=== PATIENT | male | born 1945 | race Caucasian/White ===

== ENCOUNTER 2023-03-12 11:17 | Outpatient (RCR) | payer OTHER, SELFPAY | END 2023-03-12 23:59 | disposition home or self-care (01) | LOC: CRHB 11:17 | PROVIDERS: ATTENDING PHYSICIAN Internal Medicine Cardiovascular Disease | DX: I50.22 Chronic systolic (congestive) heart failure (principal); I25.10 Atherosclerotic heart disease of native coronary artery without angina pectoris | CPT/HCPCS: G0422; G0423 ==

== ENCOUNTER 2023-03-14 09:48 | Outpatient (RCR) | payer OTHER, SELFPAY | END 2023-03-14 23:59 | disposition home or self-care (01) | LOC: CRHB 09:48 | PROVIDERS: ATTENDING PHYSICIAN Internal Medicine Cardiovascular Disease | DX: I50.22 Chronic systolic (congestive) heart failure (principal); Z95.1 Presence of aortocoronary bypass graft; I25.5 Ischemic cardiomyopathy | CPT/HCPCS: G0422 ==

== ENCOUNTER → 2023-03-14 14:10 | Outpatient (REF) | payer OTHER, SELFPAY ==
[2023-03-14 14:55] LABS: Blood Urea Nitrogen 50 mg/dl (9-20); Calcium 9.9 mg/dl (8.4-10.2); Carbon Dioxide 28 mmol/L (22-30); Chloride 105 mmol/L (98-107); Glucose 77 mg/dl (70-99); Potassium 3.5 mmol/L (3.5-5.1); Sodium 141 mmol/L (135-145); eGFR 23.68
== END ==
LOC: REG 14:10
PROVIDERS: ATTENDING PHYSICIAN Internal Medicine Cardiovascular Disease; FAMILY PHYSICIAN Family Medicine
DX: I25.5 Ischemic cardiomyopathy (principal)
CPT/HCPCS: 36415; 80048

== ENCOUNTER 2023-03-14 19:51 | Inpatient (IN) | payer OTHER, SELFPAY ==
[2023-03-14 16:36] VITALS: BP 101/50
--- NOTE | 2023-03-14 16:49 | CON.CAR ---
Addendum entered and electronically signed by Yoan Huffman MD 03/14/23 18:01:
Patient seen and examined in collaboration with [employer]; agree with below.
-77-year-old male with extensive cardiac/medical history as outlined below; was evaluated in the Cardiology office yesterday and was found to have progressive acute on chronic HFrEF (EF 25%) exacerbation and worsening renal function.
-Patient is exhibiting cardiorenal syndrome secondary to end-stage heart disease.
-Will start the patient on milrinone 0.250 mcg/kg/min and adjust as needed.
-Recommend Lasix 40 mg IV daily for now.
-Recommend Nephrology consultation.
-laboratory monitor.
-Discussed with patient and who was at bedside.
-Cardiology will continue to follow in consultation; being admitted to Hospitalist service.
Original Note:
Consultation
Consultation Request
Date/Time Consultation Requested: 03/14/23 17:00
Date/Time Consultation Performed: 03/14/23 17:00
Requesting Provider: Dr. Mendez
Performing Provider: KATHI Smith for Dr. Huffman
Reason for Consultation: Acute on chronic heart failure
Medical History
-
Chief Complaint: Dyspnea
History of Present Illness:
Tae Davison (Russ) is a 77-year-old male (known to Dr. Swain, his primary beef skinner), with permanent atrial fibrillation, bicuspid aortic valve with aortic stenosis and dilated aortic root (CABG and biological AVR and ascending aortic tube
graft 05/2009), CAD (inferior HI with PCI 2004), ischemic cardiomyopathy, HFrEF, chronic kidney disease, lung cancer status post right upper lobectomy, thyroid cancer status post thyroidectomy, and former smoker with COPD who presented to the
emergency department with dyspnea and associated weight gain. Escalating doses of furosemide has not been successful in the outpatient setting. He endorses a weight gain of greater than 20 pounds. He is experiencing abdominal bloating and
distention with orthopnea.
Past Medical History
Past Medical History: Arrhythmias (permanent atrial fibrillation), CAD (CABG), Cancer (Right upper lobectomy [2011]; Thyroidectomy [2011]), CHF (HFrEF/ICM), COPD, Hypercholesterolemia, Hypothyroidism and Valvular Disease (Biological AVR and
ascending aortic tube graft replacement [2018])
Past Surgical History: Appendectomy, Cardiac and Tonsilectomy
Social History
Tobacco: Former Smoker
Living: With Family
Employment: Retired
Family History
Family History: Reviewed & Not Pertinent
Allergies / Home Medications
Allergy/AdvReac Type Severity Reaction Status Date / Time
codeine [Codeine] Allergy nausea Verified 03/14/23 16:36
vomiting
Penicillins Allergy Hives, Verified 03/14/23 16:36
swelling,
tolerated
ceftriaxone
Feb 2020
Medication Instructions Recorded Confirmed Type
atorvastatin 40 mg tablet 40 mg PO HS High cholesterol 04/25/22 10/01/22 History
docusate sodium 100 mg capsule 100 mg PO BID@0800,1600 05/16/22 10/01/22 History
Constipation
levalbuterol tartrate 45 2 inh inhalation Q6H PRN shortness 08/23/22 10/01/22 Rx
mcg/actuation aerosol inhaler of breath or wheezing #15 grams
(Xopenex HFA)
apixaban 5 mg tablet (Eliquis) 5 mg PO BID@0800,1600 Blood clot 10/10/22 10/01/22 Rx
prevention/tx #0 tabs
aspirin 81 mg chewable tablet 81 mg PO DAILY #0 tabs 10/10/22 Rx
furosemide 40 mg tablet 40 mg PO DAILY Fluid 10/10/22 Rx
retention/Swelling #30 tabs
metoprolol succinate 25 mg 25 mg PO BID Heart Failure #30 tabs 10/10/22 Rx
tablet,extended release 24 hr
sennosides 8.6 mg-docusate sodium 1 tab PO BID PRN constipation #0 10/10/22 Rx
50 mg tablet (Senna Plus) tabs
Review of Systems
-
History Source: Patient
All other systems: Negative unless noted
Respiratory: Trouble Breathing
Cardiac: No Symptoms
Abdomen/GI: Other (bloating)
Neurological: No Symptoms
Physical Exam
Vital Signs
Temp Pulse Resp BP Pulse Ox
97.7 F 71 20 101/50 95
03/14/23 16:36 03/14/23 16:36 03/14/23 16:36 03/14/23 16:36 03/14/23 16:36
Physical Exam
General: Well Developed, Well Nourished, No Apparent Distress and Comfortable
HEENT: Normocephalic, Anicteric and Moist Mucous Membranes
Respiratory: Clear and Non Labored Respirations
Cardiac: S1/S2 and Irregular Rhythm; Negative Peripheral Edema
Breast: Deferred by me
GI: Soft, Normal Bowel Sounds, Tender and Distended
Rectal: Deferred by Provider
Genito-urinary: No Costovertebral Tender
Musculoskeletal: No Clubbing, No Cyanosis and No Edema
Skin: Warm and Dry
Neuro: AO x 3
Psych: Calm
Impression / Plan
-
HFrEF (LVEF 25-30%), acute on chronic
-Stage C, NYHA Class III
-GDMT is limited in the setting of CKD (ALYSSA/ARB/ARNi/MRA)
-Medtronic ICD in place
-In the setting of RACHELE, diuresis per nephrology
-Consider inotropic support
-Right heart cath: 10/07/22: Normal filling pressures (LVEDP = 10 mmHg, PCWP = 10 mmHg at 68.0 kg); Severely depressed cardiac function (cardiac index = 1.63 L/min/m�).
-Update echocardiogram
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
-Clearly volume overloaded
-Nephrology consulted
Abdominal bloating, likely in the setting of acute HF
-LFTs pending
CAD
-Inferior HI with PCI 2004 & CABG 2018 (LOGAN-LAD, VG-PDA)
-Cardiac catheterization - burns [place] vessel CAD with patent grafts - 10/07/22
-Stable without chest pain
Permanent atrial fibrillation
-Rate controlled
-Oral Anticoagulation: Eliquis 5mg BID
-[id number]: score 4 (Heart failure, age 75 or more, Vascular disease)
WCT (2022), continue beta jade
Moderate mitral regurgitation, by TTE 09/2022
Bicuspid aortic valve with aortic stenosis and dilated aortic root s/p biologic AVR (27mm Braden) and an aortic tube graft (05/2017)
COPD, no acute wheeze
Former smoker, continued cessation recommended
Data Reviewed
-
Medical Tests (Nuc Med, Echo etc): Report Reviewed by me (Echo & cardiac catheterization as above)
Labs: Labs Reviewed by me
Old Records: Reviewed
--- NOTE | 2023-03-14 17:21 | EDRN ---
Dr. Inman in room w/ pt at thistime.
[2023-03-14 17:27] VITALS: BMI 25.5
[2023-03-14 17:30] VITALS: BP 147/68
[2023-03-14 18:00] VITALS: BP 140/111
--- NOTE | 2023-03-14 18:05 | ED.GENMED ---
History of Present Illness
General
Chief Complaint: Swelling
Source: patient
Exam Limitations: none
Time Seen by Provider: 03/14/23 17:56
Travel History
Have you had any contact with someone who has COVID-19?: No
Do you have any symptoms of coronavirus? Fever > 100 degrees, chills, cough, shortness of breath, sore throat, loss of taste or smell, muscle aches, or headache?: No
History of Present Illness
History of Present Illness:
See MDM
Past History
Past History
ED Past Medical History: Arrthythmia (Atrial fib), CAD, Cancer (lung/Thyroid), CHF, COPD, CVA, HTN, Hypercholesterolemia, IL, Valvular disease and Other (sepsis, Headache over the left eye continually, Renal issues, Blind left eye, Ulcers)
ED Past Surgical History: Appendectomy, Cardiac (CABG, stents), Tonsilectomy, Urological (Bladder repair, ) and Other (Laparoscopic left inguinal hernia repair November 19, 2021, Left upper lobectomy, thyroidectomy)
Social History
Tobacco: Former smoker (Sneaking a few cigarettes according to .)
Alcohol: Daily (Wine 1)
Drug: None
Personal:
Living: with family
Employment: Retired
Family History
Family History: Other (Noncontributory)
Phy Exam
Physical Exam
Physical Exam:
See MDM
Scores
Heart Failure Risk
Heart Failure Risk Score: Yes
History of Stroke or TIA: No
History of intubation for respiratory distress: No
Heart rate on ED arrival >/= 110: No
SaO2 <90% on arrival on room air: No
HR >/=110 during 3min walk test (or too ill to perform test): Yes
ECG has acute ischemic changes: No
Urea >/=12mmol/L (BUN 33.6mg/dL): No
Serum CO2>/=35mmol/L: No
Troponin I or T elevated to [place] Level (0.4mg/dL): No
NT-proBNP >/=5,000ng/L (5,000pg/ml): No
HF Risk Score: 2
Admission Status: MEDIUM RISK 9.2% Consider observation or discharge to home with homecare & f/u visit to PCP/Home Specialist, or SNF for treatment
Course
Orders/Labs/Results
Orders:
Orders
03/14/23 17:28
Furosemide [Lasix] 40 mg IV NOW STA
03/14/23 17:30
Milrinone Lactate 20 mg/100 ml [Primacor 20 mg] 20 mg in 100 ml IV PER PROTOCOL
Continuous dose without titration in mcg/kg/min:: 0.25
Additional Titration Instructions:: Do not titrate. Rate change by provider order only.
03/14/23 17:37
LFT [[id number]] Routine
03/14/23 17:44
Electrocardiogram (*1) Urgent
Reason for Study: Chest Pain
EKG- Treatment ONCE
03/14/23 18:02
Consult Cardiology [CARDIOLOGY CONSULT] Urgent
Consulting Provider: Yoan Huffman
Was physician already notified: Yes
03/14/23 18:03
Consult Nephrology [NEPHROLOGY CONSULT] Routine
Consulting Provider: Aly Rich
Was physician already notified: Yes
03/17/23 06:00
Echo 2D MMode Color/Doppler IN AM
Reason for Study: HFrEF
Vital Signs
Initial and Last Documented VS:
Initial Vital Signs
Temp Pulse Resp BP Pulse Ox
97.7 F 71 20 101/50 95
03/14/23 16:36 03/14/23 16:36 03/14/23 16:36 03/14/23 16:36 03/14/23 16:36
Last Documented Vital Signs
Temp Pulse Resp BP Pulse Ox
97.7 F 81 23 140/111 97
03/14/23 16:36 03/14/23 18:00 03/14/23 18:00 03/14/23 18:00 03/14/23 18:00
MDM/Problems Addressed
Differential Diagnosis Includes:
HPI and MDM Narrative:
77-year-old male presenting for admission. He followed up with his manager food for weight gain. Outpatient blood work showed elevated creatinine. He was sent in to start milrinone and to see nephrology
On exam, patient sitting in bed comfortably. Lungs appear clear. No hypoxia
Patient is urinating indicating no post renal obstruction
Physical exam
General: Weak and frail
HEENT: protecting airway
Neck: appears supple
CV: No evidence of cyanosis
Resp: No accessory muscle use. Decreased breath sounds
Abd: Non-distended
Extremities: No deformities
Neuro: alert
Psych: Normal affect
Skin: Intact
Problems Addressed including Acute and Chronic Conditions affecting care:
1. CHF exacerbation
Acuity: acute
Prognosis: unstable
Details: Patient started on milrinone
2. Acute kidney injury
Acuity: acute
Prognosis: unstable
Details: Likely in the setting of lasix. Nephrology consulted
Updates
Differential Diagnosis (but not limited to): Acute kidney injury, CHF exacerbation, pulmonary edema
Testing considered: Chest x-ray
Drug therapy (if applicable): OTC meds, please see d/c instruction regarding Rx drugs
Amount and/or Complexity of Data Reviewed
Clinical info obtained from: Patient
External data reviewed: N/A
Labs I independently reviewed (but not limited to): elevated Cr
Radiology: N/A
Pulse Ox: not hypoxic
EKG independently reviewed: Sinus rhythm, PVCs, left axis, no STEMI
Dough Braker: N/A
Critical Care: N/A
Risk of Complication:
Social Determinants of health: Good social support
Discussed with other providers: Cardiology, nephrology, hospitalist
Escalation of Care includes Admit/Obs: Given the kidney injury and weight gain, will admit on milrinone
Occasional wrong word or 'sound a like' substitutions may have occurred due to the inherent limitations of voice recognition software. Read the chart carefully and recognize, using context, where substitutions have occurred.
*Critical Care Note
Total Time (30-74mins, 75-104mins- exclusive of procedures): Not Applicable
ED Attending Note
-
Portions of this chart may have been created with voice recognition software.� Occasional wrong word or��sound alike� substitutions may have occurred due to the inherent limitations of voice recognition software.
Discharge Plan
Departure
Patient Disposition: Admit
Date of Disposition: 03/14/23
Time of Disposition: 18:06
Admit to: IVU
Presentation/result/management discussed w/ accepting MD/DO: Hospitalist
Discharge Problem:
Acute exacerbation of CHF (congestive heart failure), RACHELE (acute kidney injury)
Prescriptions:
No Action
atorvastatin 40 MG tablet
40 mg PO HS
docusate sodium 100 mg capsule
100 mg PO BID@0800,1600
levalbuterol tartrate [Xopenex HFA] 45 mcg/actuation HFA aerosol inhaler
2 inh inhalation Q6H PRN (Reason: shortness of breath or wheezing) Qty: 15 3RF
furosemide 40 mg Tablet
40 mg PO DAILY Qty: 30 0RF
sennosides-docusate sodium [Senna Plus] 8.6-50 mg Tablet
1 tab PO BID PRN (Reason: constipation) Qty: 0 0RF
aspirin 81 mg Tablet,Chewable
81 mg PO DAILY Qty: 0 0RF
metoprolol succinate 25 mg Tablet Extended Release 24 Hr
25 mg PO BID Qty: 30 0RF
Eliquis 5 mg tablet
5 mg PO BID@0800,1600 Qty: 0 0RF
Rx Instructions:
start tonight 10/10/22
Interventions
Interventions:
*Risk Screen - Suicide Last Done: 03/14/23 17:28
*General Assessment Last Done: 03/14/23 17:28
*Neglect/Abuse Screening Last Done: 03/14/23 17:28
ED- Fall Risk Assessment Last Done: 03/14/23 17:37
*ED COVID-19 Vaccine History Last Done: 03/14/23 17:28
ED- Cardiac Assessment Last Done: 03/14/23 17:37
ED- Pulmonary Assessment Last Done: 03/14/23 17:37
ED-Skin Assessment Last Done: 03/14/23 17:37
--- NOTE | 2023-03-14 19:04 | HPS.HSE ---
Family Physician
-
Family Physician: Patric Riley
Chief Complaint
-
abdominal distention
History of Present Illness
77-year-old male past medical history of HFrEF with ICD, permanent atrial fibrillation on Eliquis, CAD status post PCI in 2005, CABG in 2018, bicuspid aortic valve with aortic stenosis status post TAVR and dilated aortic root status post ascending
aortic tube graft in 2009, CKD 3B, thyroid cancer status post thyroidectomy former smoker, COPD on 2 L at night and in the morning, lung cancer status post right upper lobectomy presenting with shortness of breath when lying down flat and weight
gain. He has gained more than 20 pounds. He complains of abdominal bloating and distention. Increasing doses of Lasix to 80 mg/day have not helped in the past few weeks. He is peeing but not making as much urine as he expected. He does have
some wheezing at times. Denies any chest pain. Denies any dizziness or palpitations or syncope.
He saw his surgeon partner Dr. Hernández yesterday who stopped metoprolol and started Coreg and metolazone which patient has not picked up from the pharmacy yet.
He is a former smoker. Denies any alcohol use.
Medical History
Past Medical History
Past Medical History: Reports Other (HFrEF with ICD, permanent atrial fibrillation on Eliquis, CAD status post PCI in 2004, CABG in 2018, bicuspid aortic valve with aortic stenosis status post TAVR and dilated aortic root status post ascending
aortic tube graft in 2009, CKD 3B, thyroid cancer status post thyroidectomy former smoker, [place])
Past Surgical History: Reports Other (Appendectomy, Cardiac and Tonsilectomy)
Social History
Tobacco: Former Smoker
Alcohol: None
Drug: None
Family History
Family History: Not pertinent
Allergies / Home Medications
Allergies reflects when Allergies were last updated in Between.
Home Medications with original date entered in Between
Allergy/Medication List:
Allergies
Allergy/AdvReac Type Severity Reaction Status Date / Time
codeine [Codeine] Allergy nausea Verified 03/14/23 16:36
vomiting
Penicillins Allergy Hives, Verified 03/14/23 16:36
swelling,
tolerated
ceftriaxone
Feb 2020
Home Medications
atorvastatin 40 mg tablet 40 mg PO HS High cholesterol 04/25/22
apixaban 5 mg tablet (Eliquis) 5 mg PO BID@0800,1600 Blood clot prevention/tx #0 tabs 10/10/22
carvedilol 6.25 mg tablet (Coreg) 6.25 mg PO Q12H 03/14/23
furosemide 40 mg tablet 40 mg PO BID Fluid retention/Swelling 03/14/23
gabapentin 300 mg capsule 300 mg PO DAILY 03/14/23
gabapentin 300 mg capsule 600 mg PO HS 03/14/23
levalbuterol tartrate 45 mcg/actuation aerosol inhaler (Xopenex HFA) 2 inh inhalation R BID 03/14/23
magnesium oxide 400 mg PO QPM 03/14/23
metolazone 2.5 mg tablet 2.5 mg PO MOWEFR 03/14/23
naproxen sodium 220 mg tablet (Aleve) 440 mg PO DAILYPRN PRN mild pain 03/14/23
potassium chloride 20 mEq tablet,extended release 20 meq PO DAILY 03/14/23
pyridoxine (vitamin B6) 500 mg tablet 500 mg PO DAILY 03/14/23
Review of Systems
-
History Source: Patient
A 12 point ROS was completed and negative except as noted: Yes
Constitutional: Reports No Symptoms
EENT: Reports No Symptoms
Respiratory: Reports See HPI
Cardiac: Reports See HPI
Abdomen/GI: Reports See HPI
: Reports No Symptoms
Musculoskeletal: Reports No Symptoms
Skin: Reports No Symptoms
Neurological: Reports No Symptoms
Endocrine: Reports No Symptoms
Hematologic/Lymphatic: Reports No Symptoms
Psych: Reports No Symptoms
Physical Exam
Vital Signs
Vital Signs
Temp Pulse Resp BP Pulse Ox
97.7 F 81 23 140/111 97
03/14/23 16:36 03/14/23 18:00 03/14/23 18:00 03/14/23 18:00 03/14/23 18:00
Physical Exam
General: Well Developed, Well Nourished and No Apparent Distress
HEENT: NormoCephalic, Moist mucous membranes and Atraumatic
Respiratory: Clear
Cardiac: S1/S2 and Regular Rhythm; No Murmur or Rub
GI: Soft, Normal Bowel Sounds, Tender and Distended; No Organomegaly
Rectal: Deferred by Provider
Musculoskeletal: No Clubbing, No Cyanosis and No Edema
Skin: No Rash
Neuro: Nonfocal/grossly intact
Data Reviewed
-
Lab Data: Labs Reviewed by me
Old Records: Reviewed
Impression/Plan
-
IMPRESSION:
PLAN:
# Abdominal distention secondary to acute on chronic HFrEF exacerbation
# Cardiomyopathy with ICD
-Check I's and O's, daily weights
-40 IV Lasix daily
-Cardiology started milrinone drip
-Prior echo shows EF of 25 to 30%
-Check chest x-ray
-Check echo
-continue Coreg
# RACHELE on CKD 3B secondary to cardiorenal syndrome
-Monitor with diuresis/milrinone
-Hold metolazone, naproxen
-Nephrology consulted
Moderate mitral regurgitation
Moderate tricuspid regurgitation
Moderate pulmonary hypertension
Permanent atrial fibrillation
-Continue Eliquis
Coronary artery disease status post PCI in 2005/CABG in 2018
-Continue statin
Bicuspid aortic valve/aortic stenosis status post TAVR
History of dilated aortic root status post ascending aortic tube graft in 2009
Thyroid cancer status post thyroidectomy
COPD on 2 L in the night/morning as needed
-Continue inhalers
Former smoker
Lung cancer status post right upper lobe lobectomy
Restless leg syndrome
-Continue gabapentin
Full code
DVT prophylaxis�Eliquis
Cardiac diet
[2023-03-14 19:42] VITALS: BP 119/61
[2023-03-14 19:59] LABS: ALT (SGPT) 21 U/L (0-50); AST (SGOT) 26 U/L (17-59); Albumin 3.6 g/dl (3.5-5.0); Alkaline Phosphatase 113 U/L (38-126); Direct Bilirubin 0.9 mg/dl (0.0-0.4); Total Bilirubin 1.1 mg/dl (0.2-1.3); Total Protein 6.9 g/dl (6.3-8.2)
[2023-03-14 20:00] VITALS: BP 131/71
[2023-03-14] MEDS: LASIX 40 MG IV (20:10)
[2023-03-14] MEDS: PRIMACOR 20 MG 100 IV (20:20)
[2023-03-14] MEDS: COREG 6.25 MG PO (21:41)
[2023-03-14] MEDS: LIPITOR 40 MG PO (21:41)
[2023-03-14] MEDS: XOPENEX HFA 45 MCG INHALER 2 PUFF INH (21:44)
[2023-03-14 21:55] VITALS: BMI 24.3
[2023-03-14 22:12] VITALS: BMI 24.3
[2023-03-14] MEDS: NEURONTIN 600 MG PO (22:22)
[2023-03-14] MEDS: ELIQUIS 5 MG PO (22:23)
[2023-03-14 22:27] VITALS: BP 124/54
--- NOTE | 2023-03-15 00:16 | PTCARENOTE ---
Pt rec'd as new admit from Ed jsut after shift change. Pt awake,alert but does state he has noticed himself getting forgetful. Pt states he walked downstair from his bedroom to his in the living room looking for his bed. Pt states these
instances have been happing more often this year. Pt oriented at this time x 3. Lungs clear with sat 95% on R/A. Pt states he holds his fluid in his abd and has noted wt gain in that area. No pedal edema noted. adm hx taken. pt given box lunch and
HS meds given. Voiding in urinal clear yellow urine. Milrinone gtt infusing at 0.25 mcg/kg/min rate of 6.1 cc/hr. call erazo within reach
[2023-03-15 04:23] VITALS: BP 115/57
[2023-03-15 04:34] VITALS: BMI 24.4
[2023-03-15 04:55] LABS: % Basophils 0.9 % (0-2); % Eosinophils 3.9 % (0-6); % Immature Granulocytes 0.2 % (0-0.5); % Lymphocytes 18.6 % (20.5-51.1); % Monocytes 15.2 % (1.7-9.3); % Neutrophils 61.2 % (42.2-75.2); Absolute Basophils 0.1 10^3/uL (0-0.2); Absolute Eosinophils 0.2 10^3/uL (0-0.7); Absolute Lymphocytes 1.1 10^3/uL (1.2-3.4); Absolute Monocytes 0.9 10^3/uL (0.1-0.6); Absolute Neutrophils 3.5 10^3/uL (1.4-6.5); Hematocrit 27.1 % (39.0-52.0); Hemoglobin 8.6 g/dL (13.0-18.0); Mean Corp Hgb Conc. 31.7 g/dL (33.0-37.0); Mean Corpuscular Hgb 25.6 pg (27.0-31.0); Mean Corpuscular Volume 80.7 fL (80.0-94.0); Mean Platelet Volume 9.6 fL (7.4-10.4); Nucleated Red Blood Cells % 0 % (-); Platelet Count 185 10^3/uL (130-400); Red Blood Cell Count 3.36 10^6/uL (4.70-6.10); Red Cell Dist. Width 17.1 % (11.5-14.5); White Blood Cell Count 5.7 10^3/uL (4.8-10.8)
[2023-03-15 05:20] LABS: ALT (SGPT) 20 U/L (0-50); AST (SGOT) 22 U/L (17-59); Albumin 3.4 g/dl (3.5-5.0); Alkaline Phosphatase 117 U/L (38-126); Blood Urea Nitrogen 48 mg/dl (9-20); Calcium 9.6 mg/dl (8.4-10.2); Carbon Dioxide 25 mmol/L (22-30); Chloride 107 mmol/L (98-107); Estimated Creatinine Clearance 26 ml/min; Glucose 123 mg/dl (70-99); Potassium 3.6 mmol/L (3.5-5.1); Sodium 137 mmol/L (135-145); Total Bilirubin 0.8 mg/dl (0.2-1.3); Total Protein 6.3 g/dl (6.3-8.2); eGFR 23.68
--- NOTE | 2023-03-15 06:33 | PTCARENOTE ---
Pt with no complaints this morning other than abd bloating. Continues to urinate frequently approx 200 cc each void. WT unchanged from adm to floor. Afib with pvc's on telemetry.
[2023-03-15 07:48] VITALS: BP 107/60
[2023-03-15] MEDS: XOPENEX HFA 45 MCG INHALER 2 PUFF INH ×2 (08:10→18:24)
[2023-03-15] MEDS: PRIMACOR 20 MG 100 IV ×2 (08:58→23:54)
[2023-03-15] MEDS: LASIX 40 MG IV (08:58)
[2023-03-15] MEDS: COREG 6.25 MG PO ×2 (08:59→20:37)
[2023-03-15] MEDS: KCL 20 MEQ PO (08:59)
[2023-03-15] MEDS: NEURONTIN 300 MG PO (08:59)
[2023-03-15] MEDS: VITAMIN B-6 50 MG PO (08:59)
[2023-03-15] MEDS: ELIQUIS 5 MG PO ×2 (09:00→17:09)
--- NOTE | 2023-03-15 09:20 | W.PN.HOSP.TC ---
Today's Communication/Plan
-
CW Milrinone and Lasix -follow Cr and Wt
Anemia evaluation
Assessment / Plan
Assessment / Plan
# acute on chronic HFrEF exacerbation
# Cardiomyopathy with ICD
-Admitting weight was 187 which is much higher than his baseline of 160s. Improving weight with Lasix. Initiated on milrinone as well for inotropic effect. Cardiology following.
-Prior echo shows EF of 25 to 30%
-chest x-ray with no acute cardiopulmonary processes.
-Check echo
-continue Coreg
# RACHELE on CKD 3B concerning for cardiorenal syndrome
-Monitor with diuresis/milrinone
-Hold metolazone, naproxen
-Nephrology consulted
# Normocytic anemia - Newly low. Other cell lines are okay.
Heme test stools.
Check iron studies.
Check reticulocyte count.
Follow H&H closely
Moderate mitral regurgitation
Moderate tricuspid regurgitation
Moderate pulmonary hypertension
Permanent atrial fibrillation
-Continue Eliquis
Coronary artery disease status post PCI in 2004/CABG in 2018
-Continue statin
Bicuspid aortic valve/aortic stenosis status post TAVR
History of dilated aortic root status post ascending aortic tube graft in 2009
Thyroid cancer status post thyroidectomy
COPD on 2 L in the night/morning as needed
-Continue inhalers
Former smoker
Lung cancer status post right upper lobe lobectomy
Restless leg syndrome
-Continue gabapentin
Full code
DVT prophylaxis�Eliquis
Cardiac diet
Anticipated Discharge: > 48 hours
Subjective/Interval History
-
Date of Service: March 15, 2023
Denies shortness of breath at rest. No chest pain or palpitations.
Objective Data
-
Labs:
Laboratory Results
03/15/23
04:32
WBC 5.7
Hgb 8.6 L
Hct 27.1 L
Plt Count 185
Sodium 137
Potassium 3.6
Chloride 107
Carbon Dioxide 25
BUN 48 H
Creatinine 2.7 H
Glucose 123 H
Calcium 9.6
Total Bilirubin 0.8
AST 22
ALT 20
Alkaline Phosphatase 117
Vital Signs:
Vital Signs
Temp Pulse Resp BP Pulse Ox
98.2 F 73 18 107/60 92
03/15/23 07:48 03/15/23 08:59 03/15/23 08:13 03/15/23 08:59 03/15/23 08:13
I&O
03/14/23 03/15/23 03/16/23
06:59 06:59 06:59
Intake Total 460 / 460
Output Total 1300 / 1300
Balance -840 / -840
Review of Systems
-
Constitutional: Denies Fever
EENT: Denies Sore Throat
Respiratory: Denies Cough
Abdomen/GI: Denies Abdominal Pain, Nausea or Vomiting
Neuro: Denies Dizzy
Physical Exam
-
General: No Apparent Distress
HEENT: Moist Mucous Membranes
Respiratory: Crackles (Bibasilar)
Cardiac: S1/S2 and Irregular Rhythm; Negative Tachycardic
GI: Soft
Musculoskeletal: Negative No Edema (1+ bilateral)
Neuro: AO x 3
Psych: Calm; Negative Confused
Data Reviewed
-
Labs: Labs Reviewed by me
--- NOTE | 2023-03-15 10:04 | W.PN.CD ---
Today's Communication / Plan
-
-Will increase Lasix to 40 mg IV twice daily for more aggressive diuresis; has diuresed 1 L so far since yesterday.
-Volume overloaded (primarily abdominal distention).
-Nephrology consultation.
Impression / Plan
-
HFrEF (LVEF 25-30%), acute on chronic decompensation
-Stage C, NYHA Class III-IV, now requiring milrinone--continue today.
-Will increase Lasix to 40 mg IV twice daily for more aggressive diuresis; has diuresed 1 L so far since yesterday.
-GDMT is limited in the setting of CKD (ALYSSA/ARB/ARNi/MRA)
-Medtronic ICD in place
-Right heart cath: 10/07/22: Normal filling pressures (LVEDP = 10 mmHg, PCWP = 10 mmHg at 68.0 kg); Severely depressed cardiac function (cardiac index = 1.63 L/min/m�).
-Update echocardiogram
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
-Volume overloaded (primarily abdominal distention).
-Nephrology consultation.
CAD
-Inferior OK with PCI 2004 & CABG 2017 (LOGAN-LAD, VG-PDA)
-Cardiac catheterization - [place] vessel CAD with patent grafts - 10/07/22
-Appears to be stable without chest pain.
Permanent atrial fibrillation
-Rate controlled
-Oral Anticoagulation: Eliquis 5mg BID
-[id number]: score 4 (Heart failure, age 75 or more, Vascular disease)
Anemia
-Workup/management as per primary team.
WCT (2022), continue beta jade
Moderate mitral regurgitation, by TTE 09/2022
Bicuspid aortic valve with aortic stenosis and dilated aortic root s/p biologic AVR (27mm Braden) and an aortic tube graft (05/2017)
COPD, no acute wheeze
Former smoker, continued cessation recommended
Physical Exam
Vital Signs/Labs
Vital Signs
Temp Pulse Resp BP Pulse Ox
98.2 F 73 18 107/60 92
03/15/23 07:48 03/15/23 08:59 03/15/23 08:13 03/15/23 08:59 03/15/23 08:13
03/14/23 03/15/23 03/16/23
06:59 06:59 06:59
Actual Weight 81.4 kg
03/15/23 04:32
03/15/23 04:32
Physical Exam
Constitutional: No acute distress and Comfortable
EENT: Anicteric
Cardiovascular: Rhythm/rate is irregular, Pedal edema present (Trace), Systolic murmur present (Soft 2/6) and S1S2 is normal
Respiratory: Respiratory effort normal and Other (Decreased bibasilar breath sounds)
GI: Soft
Neuro/Psych: AO x 3
Other: Skin (Warm, dry, intact)
Data Reviewed
-
Date of Service: March 15, 2023
EKG: Tracing Personally Visualized and interpreted (Telemetry: A-fib)
Medical Tests (PFT, Pathology etc): Discussed with Nurse and Discussed with Patient
Labs: Labs Reviewed by me
[2023-03-15 11:31] VITALS: BP 112/48
[2023-03-15] MEDS: MAGNESIUM OXIDE 500 MG PO (11:55)
--- NOTE | 2023-03-15 12:09 | CON.MD ---
Consultation - Medical
-
Assessment
-RACHELE
-CKD3b (1.7)
-HFrEF 25%, decompensated
-CAD
-Afib
-Anemia
-COPD
-TAVR
Plan
-milrinone per cardiology
-increase lasix to 80mg IV BID for this weekend
-If Cr worsens or diuresis is lacking, go to TID with metolazone and consider RHC friday
-d/w pt and cardiorenal and potential of dialysis if we cannot break the cycle
-check iron stores
-No NSAIDs
-[id number]
[2023-03-15 15:45] VITALS: BP 112/55
[2023-03-15] MEDS: MAG-TAB SR 84 MG PO (17:09)
[2023-03-15] MEDS: LASIX 80 MG IV (17:09)
--- NOTE | 2023-03-15 18:03 | PTCARENOTE ---
pt continues to be afib on the monitor with pvcs, hr in the 80s, vss. pt offers no complaints at this time. pt has been resting throughout the day and visiting with family. pt educated on plan of care for the evening and pt verbalized understanding.
milrinone gtt running per documentation. call erazo within reach.
[2023-03-15 19:41] VITALS: BP 119/49
[2023-03-15] MEDS: LIPITOR 40 MG PO (20:37)
[2023-03-15] MEDS: NEURONTIN 600 MG PO (20:38)
--- NOTE | 2023-03-15 21:15 | PTCARENOTE ---
Assumed care. Patient sitting up in bed watching TV. Milrinone gtt infusing per MAR. Ussing urinal for yellow urine, emptied urinal 600cc. Abdomen soft and obese, no edema. A-FIB on telemetry, HR in the 80's, denies pain or shortness of breath, call
erazo in reach
[2023-03-15 22:18] VITALS: BP 101/62
[2023-03-16] VITALS (8 sets, daily range): BP systolic 99–122; BP diastolic 35–66; PULSE 86; O2SAT 92; BMI 24.4
[2023-03-16 03:05] LABS: Hematocrit 26.9 % (39.0-52.0); Hemoglobin 8.7 g/dL (13.0-18.0); Mean Corp Hgb Conc. 32.3 g/dL (33.0-37.0); Mean Corpuscular Volume 80.3 fL (80.0-94.0); Platelet Count 187 10^3/uL (130-400); Red Blood Cell Count 3.35 10^6/uL (4.70-6.10); Red Cell Dist. Width 16.9 % (11.5-14.5); Reticulocyte Count 1.3 % (0.4-2.8); White Blood Cell Count 7.8 10^3/uL (4.8-10.8)
[2023-03-16 03:22] LABS: Blood Urea Nitrogen 51 mg/dl (9-20); Carbon Dioxide 24 mmol/L (22-30); Chloride 101 mmol/L (98-107); Estimated Creatinine Clearance 28 ml/min; Glucose 123 mg/dl (70-99); Iron 47 ug/dl (49-181); Potassium 4.1 mmol/L (3.5-5.1); Sodium 136 mmol/L (135-145); eGFR 25.98
[2023-03-16 03:30] LABS: Percent Saturation 13 % (20-50); Total Iron Binding Capacity 349 ug/dl (261-462)
[2023-03-16 03:55] LABS: Ferritin 12.3 ng/ml (17.9-464.0)
[2023-03-16 04:09] LABS: Vitamin B12 346 pg/ml (239-931)
[2023-03-16] MEDS: XOPENEX HFA 45 MCG INHALER 2 PUFF INH ×2 (08:12→21:09)
[2023-03-16] MEDS: NEURONTIN 300 MG PO (08:43)
[2023-03-16] MEDS: VITAMIN B-6 50 MG PO (08:44)
[2023-03-16] MEDS: COREG 6.25 MG PO ×2 (08:44→19:49)
[2023-03-16] MEDS: LASIX 80 MG IV ×2 (08:44→17:04)
[2023-03-16] MEDS: ELIQUIS 5 MG PO ×2 (08:44→17:04)
[2023-03-16] MEDS: KCL 20 MEQ PO (08:44)
--- NOTE | 2023-03-16 09:26 | W.PN.HOSP.TC ---
Today's Communication/Plan
-
cont milrinone, diuresis
apprec cards/renal
Assessment / Plan
Assessment / Plan
pt is a 77 year old male
acute on chronic HFrEF exacerbation/Cardiomyopathy with ICD--apprec cards/renal--cont milrinone--cont diuresis--Admitting weight was 187 which is much higher than his baseline of 160s--Prior echo shows EF of 25 to 30% (09/2022)--await repeat--cont
coreg
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
Normocytic anemia--Newly low. Other cell lines are okay--appears to be iron deficient--HGB 8.7--heme check stool--retic count normal 1.3--may need heme eval
Moderate mitral regurgitation/Moderate tricuspid regurgitation/Moderate pulmonary hypertension
Permanent atrial fibrillation--Continue Eliquis
Coronary artery disease status post PCI in 2004/CABG in 2018--Continue statin
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
Thyroid cancer status post thyroidectomy
COPD on 2 L in the night/morning as needed--Continue inhalers
Former smoker with hx of Lung cancer status post right upper lobe lobectomy
Restless leg syndrome--Continue gabapentin
code status --Full code
DVT prophylaxis�Eliquis
Anticipated Discharge: > 48 hours
Subjective/Interval History
-
Date of Service: March 16, 2023
pt discouraged that he has not lost any weight
Objective Data
-
Labs:
Laboratory Results
03/16/23
02:39
WBC 7.8
Hgb 8.7 L
Hct 26.9 L
Plt Count 187
Sodium 136
Potassium 4.1
Chloride 101
Carbon Dioxide 24
BUN 51 H
Creatinine 2.5 H
Glucose 123 H
Calcium 10.0
Vital Signs:
max temp for 24 hours
03/15/23
15:01
Temp 98.2 F
Vital Signs
Temp Pulse Resp BP Pulse Ox
99.5 F 85 16 107/35 92
03/16/23 08:07 03/16/23 08:17 03/16/23 08:17 03/16/23 02:33 03/16/23 08:17
I&O
03/15/23 03/16/23 03/17/23
06:59 06:59 06:59
Intake Total 460 / 460 685.2 / 685.2
Output Total 1300 / 1300 2049
Balance -840 / -840 -1364.8 / -1364.8
Review of Systems
-
All other systems: Reviewed and negative
Physical Exam
-
General: Well Developed, Well Nourished and No Apparent Distress
HEENT: Normocephalic and Atraumatic; Negative Oxygen
Respiratory: Clear to Auscultation; Negative Wheezes or Rhonchi
Cardiac: Regular Rhythm and S1/S2; Negative Murmur
GI: Soft, Nontender, Nondistended and Normal Bowel Sounds
Musculoskeletal: No Clubbing, No Cyanosis and No Edema
Neuro: Awake
Psych: Calm
--- NOTE | 2023-03-16 11:25 | W.PN.NEPH.PH ---
Today's Communication / Plan
-
diurese
Assessment/Plan
-
Assessment
-RACHELE
-CKD3b (1.7)
-HFrEF 25%, decompensated
-CAD
-Afib
-Anemia
-COPD
-TAVR
Plan
-milrinone per cardiology
-lasix to 80mg IV BID for this weekend
-If Cr worsens or diuresis is lacking, go to TID with metolazone and consider RHC friday
-iron IV
-
-
Date of Service: March 16, 2023
CC / HPI / ROS
-
Chief Complaint:
RACHELE
History of Present Illness:
RACHELE/Cr down to 2.5
on milrinone for decompensated HF
good diuresis with IV lasix
BP stable
Review of Systems:
no CP/SOB
weights not different
Labs
-
Labs:
WBC 7.8 10^3/uL (4.8-10.8) 03/16/23 02:39
RBC 3.35 10^6/uL (4.70-6.10) L 03/16/23 02:39
Hgb 8.7 g/dL (13.0-18.0) L 03/16/23 02:39
Hct 26.9 % (39.0-52.0) L 03/16/23 02:39
Plt Count 187 10^3/uL (130-400) 03/16/23 02:39
Sodium 136 mmol/L (135-145) 03/16/23 02:39
Potassium 4.1 mmol/L (3.5-5.1) 03/16/23 02:39
Chloride 101 mmol/L (98-107) 03/16/23 02:39
Carbon Dioxide 24 mmol/L (22-30) 03/16/23 02:39
BUN 51 mg/dl (9-20) H 03/16/23 02:39
Creatinine 2.5 mg/dL (0.7-1.3) H 03/16/23 02:39
eGFR 25.98 03/16/23 02:39
Glucose 123 mg/dl (70-99) H 03/16/23 02:39
Calcium 10.0 mg/dl (8.4-10.2) 03/16/23 02:39
Albumin 3.4 g/dl (3.5-5.0) L 03/15/23 04:32
Physical Exam
-
Vital Signs:
Vital Signs
Temp Pulse Resp BP Pulse Ox
99.5 F 84 16 108/53 92
03/16/23 08:07 03/16/23 11:15 03/16/23 08:17 03/16/23 08:10 03/16/23 08:17
Cardiovascular:: Regular rate and rhythm
Respiratory:: Bilateral: Coarse
Lung Excursion:: Normal
Abdomen:: Nontender and Soft
Bowel Sounds:: Normal
Extremity Edema:: None: Bilateral:
--- NOTE | 2023-03-16 11:35 | PTCARENOTE ---
Assumed care of pt from night RN. Pt received awake and alert, sitting up eating breakfast. Milrinone drip infusing through RAC at 0.25 mcg/kg/min or 6.1 ml/hr. Pt diuresing well, still receiving 80 mf Lasix BID. He denies any pain or discomfort
at this time, will monitor closely. For ECHo and possible RHC in am.
[2023-03-16] MEDS: FERRLECIT 110 MG IV (13:14)
--- NOTE | 2023-03-16 14:33 | W.PN.CD ---
Today's Communication / Plan
-
-Lasix increased to 80 mg IV twice daily by Nephrology for more effective diuresis.
-Will increase milrinone to 0.375 mcg/kg/min.
-Update echocardiogram scheduled for tomorrow.
Impression / Plan
-
HFrEF (LVEF 25-30%), acute on chronic decompensation
-Stage C, NYHA Class III-IV, now requiring milrinone.
-Lasix increased to 80 mg IV twice daily by Nephrology for more effective diuresis.
-Will increase milrinone to 0.375 mcg/kg/min.
-GDMT is limited in the setting of CKD (ALYSSA/ARB/ARNi/MRA)
-Medtronic ICD in place
-Right heart cath: 10/07/22: Normal filling pressures (LVEDP = 10 mmHg, PCWP = 10 mmHg at 68.0 kg); Severely depressed cardiac function (cardiac index = 1.63 L/min/m�).
-Update echocardiogram scheduled for tomorrow.
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
-Volume overloaded (primarily abdominal distention).
-Nephrology now following; appreciate input.
CAD
-Inferior [place] with PCI 2004 & CABG 2017 (LOGAN-LAD, VG-PDA)
-Cardiac catheterization - [place] vessel CAD with patent grafts - 10/07/22
-Relatively stable without chest pain.
Permanent atrial fibrillation
-Remains rate controlled
-Oral Anticoagulation: Eliquis 5mg BID
-[id number]: score 4 (Heart failure, age 75 or more, Vascular disease)
Anemia
-Workup/management as per primary team.
WCT (2022), continue beta jade
Moderate mitral regurgitation, by TTE 09/2022
Bicuspid aortic valve with aortic stenosis and dilated aortic root s/p biologic AVR (27mm Braden) and an aortic tube graft (05/2017)
COPD, no acute wheeze
Former smoker, continued cessation recommended
Physical Exam
Vital Signs/Labs
Vital Signs
Temp Pulse Resp BP Pulse Ox
98.6 F 85 20 119/66 94
03/16/23 12:40 03/16/23 12:30 03/16/23 12:40 03/16/23 12:19 03/16/23 12:40
03/15/23 03/16/23 03/17/23
06:59 06:59 06:59
Actual Weight 81.4 kg 81.4 kg
03/16/23 02:39
03/16/23 02:39
Physical Exam
Constitutional: No acute distress and Comfortable
EENT: Anicteric
Cardiovascular: Rhythm/rate is irregular, Pedal edema present (Trace), Systolic murmur present (2/6) and S1S2 is normal
Respiratory: Respiratory effort normal and Other (Decreased bibasilar breath sounds)
GI: Soft
Neuro/Psych: AO x 3
Other: Skin (Warm, dry)
Data Reviewed
-
Date of Service: March 16, 2023
EKG: Tracing Personally Visualized and interpreted (Telemetry: Atrial fibrillation)
--- NOTE | 2023-03-16 14:45 | PTCARENOTE ---
Milrinone drip increased to 0.375 mcg/kg/min or 9.1 ml's/hr as ordered, drip infusing into right fa with any s/s of phlebitis.
[2023-03-16] MEDS: PRIMACOR 20 MG 100 IV (14:49)
[2023-03-16] MEDS: MAG-TAB SR 84 MG PO (17:04)
[2023-03-16] MEDS: LIPITOR 40 MG PO (19:49)
[2023-03-16] MEDS: NEURONTIN 600 MG PO (19:50)
[2023-03-17] VITALS (14 sets, daily range): BP systolic 82–125; BP diastolic 48–66; PULSE 73; O2SAT 96; BMI 24.3
[2023-03-17] MEDS: PRIMACOR 20 MG 100 IV ×3 (00:27→22:20)
--- NOTE | 2023-03-17 03:48 | PTCARENOTE ---
Patient removed telemetry, walking in the room, IV out, trying to turn off the monitor. 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 Night light left on,
call erazo in reach
[2023-03-17 05:12] LABS: % Basophils 1.1 % (0-2); % Eosinophils 4.6 % (0-6); % Immature Granulocytes 0.2 % (0-0.5); % Lymphocytes 16.6 % (20.5-51.1); % Monocytes 17.8 % (1.7-9.3); % Neutrophils 59.7 % (42.2-75.2); Absolute Basophils 0.1 10^3/uL (0-0.2); Absolute Eosinophils 0.3 10^3/uL (0-0.7); Absolute Lymphocytes 1.1 10^3/uL (1.2-3.4); Absolute Monocytes 1.2 10^3/uL (0.1-0.6); Absolute Neutrophils 3.9 10^3/uL (1.4-6.5); Hematocrit 27.3 % (39.0-52.0); Hemoglobin 8.8 g/dL (13.0-18.0); Mean Corp Hgb Conc. 32.2 g/dL (33.0-37.0); Mean Corpuscular Hgb 25.4 pg (27.0-31.0); Mean Corpuscular Volume 78.7 fL (80.0-94.0); Nucleated Red Blood Cells % 0 % (-); Platelet Count 213 10^3/uL (130-400); Red Blood Cell Count 3.47 10^6/uL (4.70-6.10); Red Cell Dist. Width 16.9 % (11.5-14.5); White Blood Cell Count 6.5 10^3/uL (4.8-10.8)
[2023-03-17 05:30] LABS: NT-proBNP 1740 pg/ml
[2023-03-17 05:39] LABS: ALT (SGPT) 18 U/L (0-50); AST (SGOT) 24 U/L (17-59); Albumin 3.4 g/dl (3.5-5.0); Alkaline Phosphatase 106 U/L (38-126); Blood Urea Nitrogen 52 mg/dl (9-20); Calcium 10.3 mg/dl (8.4-10.2); Carbon Dioxide 26 mmol/L (22-30); Chloride 101 mmol/L (98-107); Estimated Creatinine Clearance 29 ml/min; Glucose 128 mg/dl (70-99); Magnesium 2.4 mg/dl (1.6-2.3); Sodium 137 mmol/L (135-145); Total Bilirubin 0.9 mg/dl (0.2-1.3); Total Protein 6.4 g/dl (6.3-8.2); eGFR 27.28
[2023-03-17] MEDS: XOPENEX HFA 45 MCG INHALER 2 PUFF INH ×2 (07:37→20:51)
--- NOTE | 2023-03-17 08:35 | W.PN.HOSP.TC ---
Today's Communication/Plan
-
Transfuse PRBC.
Start on IV iron.
Check Hemoccult testing.
Continue with milrinone and diuresis .
Assessment / Plan
Assessment / Plan
pt is a 77 year old male
acute on chronic HFrEF exacerbation/Cardiomyopathy with ICD-- --On milrinone and diuresis--Admitting weight was 187 which is much higher than his baseline of 160s--Prior echo shows EF of 25 to 30% (09/2022)--patient's weight has decreased since
admission but has stalled for the last 4 days at 179 pounds. Still kind of feels weak and tired unclear if this is heart failure or related on milrinone or his anemia.
Clinically apart from increased wt compared to baseline and new RACHELE on CKD clinically not overtly fluid overloaded. BNP and CXR on admission noted and now clinically without crackles,hypoxia or significant LE edema.
[facility] RHC.
CW Coreg
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
Normocytic anemia--Newly low. Other cell lines are okay-- iron deficient- --no overt external bleeding. Await heme occult testing stools. With the above symptoms and severe anemia discussed with the patient's risk and the benefit of transfusion.
I feel he would benefit a unit of transfusion of PRBC ;want to raise the hematocrit and see how his symptoms and heart failure responsed. Consented for blood today. If heme positive consult GI due to iron deficiency and patient being on
anticoagulation.
Moderate mitral regurgitation/Moderate tricuspid regurgitation/Moderate pulmonary hypertension
Permanent atrial fibrillation--Continue Eliquis
Coronary artery disease status post PCI in 2004/CABG in 2018--Continue statin
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
Thyroid cancer status post thyroidectomy
COPD on 2 L in the night/morning as needed--Continue inhalers
Former smoker with hx of Lung cancer status post right upper lobe lobectomy
Restless leg syndrome--Continue gabapentin
code status --Full code
DVT prophylaxis�Eliquis
DW Cards Dr Baig
Anticipated Discharge: > 48 hours
Subjective/Interval History
-
patient had okay night but he felt little confused when he got up but that is now cleared. he is alert and oriented x 3.
He kind of feels weak. Not short of breath at rest no chest pain. No palpitation. Currently on IV milrinone.
No nausea vomiting. Has not had a bowel movement since Friday.
Objective Data
-
Labs:
Laboratory Results
03/17/23
04:16
WBC 6.5
Hgb 8.8 L
Hct 27.3 L
Plt Count 213
Sodium 137
Potassium 4.0
Chloride 101
Carbon Dioxide 26
BUN 52 H
Creatinine 2.4 H
Glucose 128 H
Calcium 10.3 H
Total Bilirubin 0.9
AST 24
ALT 18
Alkaline Phosphatase 106
Vital Signs:
Vital Signs
Temp Pulse Resp BP Pulse Ox
98.3 F 69 14 111/54 91
03/17/23 03:40 03/17/23 07:45 03/17/23 07:42 03/17/23 07:23 03/17/23 03:45
I&O
03/16/23 03/17/23 03/18/23
06:59 06:59 06:59
Intake Total 685.2 / 685.2 185 / 185
Output Total 2049 1700 / 170
Balance -1364.8 / -1364.8 -1515 / -1515
Review of Systems
-
Constitutional: Denies Fever
EENT: Denies Sore Throat
Respiratory: Denies Cough
Neuro: Denies Dizzy
Physical Exam
-
General: No Apparent Distress
HEENT: Moist Mucous Membranes
Respiratory: Clear to Auscultation; Negative Crackles
Cardiac: Regular Rhythm and S1/S2
GI: Soft
Musculoskeletal: Negative No Edema (trace LE edema)
Neuro: AO x 3 and No Motor Deficits; Negative Slurred Speech or Facial Droop
Psych: Calm; Negative Confused or Agitated
Data Reviewed
-
Labs: Labs Reviewed by me
[2023-03-17] MEDS: NEURONTIN 300 MG PO (08:42)
[2023-03-17] MEDS: ELIQUIS 5 MG PO ×2 (08:43→16:44)
[2023-03-17] MEDS: COREG 6.25 MG PO ×2 (08:43→19:51)
[2023-03-17] MEDS: KCL 20 MEQ PO (08:43)
[2023-03-17] MEDS: VITAMIN B-6 50 MG PO (08:43)
--- NOTE | 2023-03-17 08:43 | W.PN.CD ---
Today's Communication / Plan
-
weight is unchanged: metolazone 5mg now, and increase lasix to 80mg IV tid
continue milrinone
echo
Impression / Plan
-
ICM, HFrEF (LVEF 25-30%), acute on chronic decompensation, severe, with cardiorenal syndrome requiring close monitoring of labs and tele
-Stage C, NYHA Class III-IV, now requiring milrinone at 0.375
-GDMT is limited in the setting of CKD (ALYSSA/ARB/ARNi/MRA)
-currently on coreg 6.25mg bid
-Medtronic ICD in place
-Right heart cath: 10/07/22: Normal filling pressures (LVEDP = 10 mmHg, PCWP = 10 mmHg at 68.0 kg); Severely depressed cardiac function (cardiac index = 1.63 L/min/m�).
-may need to repeat RHC this admission
-echo today
-nephrology communication reviewed
-weight is unchanged: metolazone 5mg now, and increase lasix to 80mg IV tid
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
-Volume overloaded (primarily abdominal distention).
-Nephrology now following; appreciate input.
CAD
-Inferior [place] with PCI 2004 & CABG 2018 (LOGAN-LAD, VG-PDA)
-Cardiac catheterization - [place] vessel CAD with patent grafts - 10/07/22
-Relatively stable without chest pain.
Permanent atrial fibrillation
-Remains rate controlled: continue coreg
-Oral Anticoagulation: Eliquis 5mg BID
-[id number]: score 4 (Heart failure, age 75 or more, Vascular disease)
Anemia
-Workup/management as per primary team.
WCT (2022), continue beta jade
Moderate mitral regurgitation, by TTE 09/2022
Bicuspid aortic valve with aortic stenosis and dilated aortic root s/p biologic AVR (27mm Braden) and an aortic tube graft (05/2017)
COPD, no acute wheeze
Former smoker, continued cessation recommended
Physical Exam
Vital Signs/Labs
Vital Signs
Temp Pulse Resp BP Pulse Ox
98.3 F 69 14 111/54 91
03/17/23 03:40 03/17/23 07:45 03/17/23 07:42 03/17/23 07:23 03/17/23 03:45
03/16/23 03/17/23 03/18/23
06:59 06:59 06:59
Actual Weight 81.4 kg 81.3 kg
03/17/23 04:16
03/17/23 04:16
Magnesium 2.4 mg/dl (1.6-2.3) H 03/17/23 04:16
03/17/23
04:16
Tfw-Z-Sosjzdojbhb Pept 1740
Physical Exam
Constitutional: No acute distress
EENT: Moist mucous membranes
Cardiovascular: Pedal edema is absent, Rhythm/rate is irregular, JVD present and Systolic murmur present
Respiratory: Respiratory effort normal and Lungs clear to auscul.
GI: Soft, Distention absent and Flat
Neuro/Psych: AO x 3
Data Reviewed
-
Date of Service: March 17, 2023
EKG: Other (Tele: Afib 70s, PVC's)
Labs: Labs Reviewed by me
[2023-03-17] MEDS: ZAROXOLYN 5 MG PO (09:11)
[2023-03-17] MEDS: LASIX IV (09:12)
[2023-03-17] MEDS: LASIX 80 MG IV ×2 (09:53→17:29)
[2023-03-17] MEDS: FERRLECIT 110 MG IV (11:00)
--- NOTE | 2023-03-17 11:18 | W.PN.NEPH.PH ---
Today's Communication / Plan
-
diuretics escalated as weight unchanged
creatinine unchanged
Assessment/Plan
-
Assessment
-RACHELE
-CKD3b (1.7)
-HFrEF 25%, decompensated
-CAD
-Afib
-Anemia
-COPD
-TAVR
Plan
-milrinone per cardiology
-lasix to 80mg IV TID, 5 mg metolazone
- UOp ~ 2liters over past 24hrs
-creatinine unchanged at 2.4
-iron IV
-
-
Date of Service: March 17, 2023
CC / HPI / ROS
-
Chief Complaint:
RACHELE
History of Present Illness:
RACHELE/Cr down to 2.4
on milrinone for decompensated HF with IV lasix and metolazone
BP stable
Review of Systems:
no CP/SOB
weights not different
Labs
-
Labs:
WBC 6.5 10^3/uL (4.8-10.8) 03/17/23 04:16
RBC 3.47 10^6/uL (4.70-6.10) L 03/17/23 04:16
Hgb 8.8 g/dL (13.0-18.0) L 03/17/23 04:16
Hct 27.3 % (39.0-52.0) L 03/17/23 04:16
Plt Count 213 10^3/uL (130-400) 03/17/23 04:16
Sodium 137 mmol/L (135-145) 03/17/23 04:16
Potassium 4.0 mmol/L (3.5-5.1) 03/17/23 04:16
Chloride 101 mmol/L (98-107) 03/17/23 04:16
Carbon Dioxide 26 mmol/L (22-30) 03/17/23 04:16
BUN 52 mg/dl (9-20) H 03/17/23 04:16
Creatinine 2.4 mg/dL (0.7-1.3) H 03/17/23 04:16
eGFR 27.28 03/17/23 04:16
Glucose 128 mg/dl (70-99) H 03/17/23 04:16
Calcium 10.3 mg/dl (8.4-10.2) H 03/17/23 04:16
Lpx-T-Wdllmjnahtr Pept 1740 pg/ml 03/17/23 04:16
Albumin 3.4 g/dl (3.5-5.0) L 03/17/23 04:16
Physical Exam
-
Vital Signs:
Vital Signs
Temp Pulse Resp BP Pulse Ox
97.7 F 68 14 102/54 94
03/17/23 07:35 03/17/23 09:53 03/17/23 07:42 03/17/23 09:53 03/17/23 07:35
Cardiovascular:: Regular rate and rhythm
Respiratory:: Bilateral: Coarse
Lung Excursion:: Normal
Abdomen:: Nontender
Bowel Sounds:: Normal
Extremity Edema:: +1: Bilateral:
Rodriguez Catheter: No
--- NOTE | 2023-03-17 12:57 | CM ---
spoke to pt in room, he is prev indep, lives with his in a 2 story home with 2 steps to enter. he uses a walking stick. he denies any dc planning needs. plan is for dc to home when medically stable.
[2023-03-17] MEDS: MAG-TAB SR 84 MG PO (17:29)
--- NOTE | 2023-03-17 22:08 | PTCARENOTE ---
Pt rec'd at change of shift awake,alert and oriented. Pt remembers getting confused last night and pulling out iv sites. bed alarm remains activated.
CHG bath given and linens changed. Afib on telemetry with pvc's noted. Milrinone gtt infusing at 0.375 (9.1cc) site patent. Pt reports abd swelling is much improved and urine output has increased.
[2023-03-17] MEDS: NEURONTIN 600 MG PO (22:15)
[2023-03-17] MEDS: LIPITOR 40 MG PO (22:15)
[2023-03-18] VITALS (8 sets, daily range): BP systolic 106–132; BP diastolic 48–61; PULSE 78; O2SAT 95; BMI 23.7
[2023-03-18] MEDS: TYLENOL 650 MG PO ×2 (00:10→13:22)
[2023-03-18 05:17] LABS: Hematocrit 30.6 % (39.0-52.0); Hemoglobin 10.1 g/dL (13.0-18.0); Mean Corpuscular Hgb 25.8 pg (27.0-31.0); Mean Corpuscular Volume 78.3 fL (80.0-94.0); Mean Platelet Volume 9.8 fL (7.4-10.4); Platelet Count 235 10^3/uL (130-400); Red Blood Cell Count 3.91 10^6/uL (4.70-6.10); Red Cell Dist. Width 16.8 % (11.5-14.5); White Blood Cell Count 7.4 10^3/uL (4.8-10.8)
[2023-03-18 05:49] LABS: Blood Urea Nitrogen 49 mg/dl (9-20); Calcium 10.4 mg/dl (8.4-10.2); Carbon Dioxide 29 mmol/L (22-30); Chloride 95 mmol/L (98-107); Estimated Creatinine Clearance 28 ml/min; Glucose 137 mg/dl (70-99); Potassium 3.5 mmol/L (3.5-5.1); Sodium 135 mmol/L (135-145); eGFR 25.98
[2023-03-18] MEDS: FERRLECIT 110 MG IV (07:35)
[2023-03-18] MEDS: ELIQUIS 5 MG PO ×2 (07:36→16:08)
[2023-03-18] MEDS: NEURONTIN 300 MG PO (07:36)
[2023-03-18] MEDS: KCL 20 MEQ PO (07:36)
[2023-03-18] MEDS: VITAMIN B-6 50 MG PO (07:37)
[2023-03-18] MEDS: COREG 6.25 MG PO ×2 (07:37→20:25)
[2023-03-18] MEDS: LASIX 80 MG IV ×3 (07:37→17:17)
[2023-03-18] MEDS: FLUSH (NSS) 3 FLUSH IV (07:38)
--- NOTE | 2023-03-18 08:11 | W.PN.CD ---
Today's Communication / Plan
-
continue lasix 80mg IV tid
continue milrinone
Impression / Plan
-
ICM, HFrEF (LVEF 30-35%), acute on chronic decompensation, severe, with cardiorenal syndrome requiring close monitoring of labs and tele
-Stage C, NYHA Class III-IV, now requiring milrinone at 0.375
-GDMT is limited in the setting of CKD (ALYSSA/ARB/ARNi/MRA)
-currently on coreg 6.25mg bid
-Medtronic ICD in place
-Right heart cath: 10/07/22: Normal filling pressures (LVEDP = 10 mmHg, PCWP = 10 mmHg at 68.0 kg); Severely depressed cardiac function (cardiac index = 1.63 L/min/m�).
-may need to repeat RHC this admission
-continue lasix 80mg IV tid
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
-Volume overloaded (primarily abdominal distention).
-Nephrology now following; appreciate input.
CAD
-Inferior [place] with PCI 2004 & CABG 2017 (LOGAN-LAD, VG-PDA)
-Cardiac catheterization - [place] vessel CAD with patent grafts - 10/07/22
-Relatively stable without chest pain.
Permanent atrial fibrillation
-Remains rate controlled: continue coreg
-Oral Anticoagulation: Eliquis 5mg BID
-[id number]: score 4 (Heart failure, age 75 or more, Vascular disease)
Anemia
-Workup/management as per primary team.
WCT (2022), continue beta jade
Moderate mitral regurgitation, by TTE 09/2022
Bicuspid aortic valve with aortic stenosis and dilated aortic root s/p biologic AVR (27mm Braden) and an aortic tube graft (05/2017)
COPD, no acute wheeze
Former smoker, continued cessation recommended
Physical Exam
Vital Signs/Labs
Vital Signs
Temp Pulse Resp BP Pulse Ox
97.5 F 86 16 132/61 94
03/18/23 07:18 03/18/23 07:19 03/18/23 07:18 03/18/23 07:19 03/18/23 07:18
03/17/23 03/18/23 03/19/23
06:59 06:59 06:59
Actual Weight 81.3 kg 79.2 kg
03/18/23 04:26
03/18/23 04:26
Magnesium 2.4 mg/dl (1.6-2.3) H 03/17/23 04:16
03/17/23
04:16
Rwl-S-Wqohawxrihh Pept 1740
Physical Exam
Constitutional: No acute distress
EENT: Moist mucous membranes
Cardiovascular: Pedal edema is absent, Rhythm/rate is irregular, JVD present and Systolic murmur present
Respiratory: Respiratory effort normal and Lungs clear to auscul.
GI: Soft, Distention absent and Flat
Neuro/Psych: AO x 3
Data Reviewed
-
Date of Service: March 18, 2023
EKG: Other (Tele: A fib 70s)
[2023-03-18] MEDS: XOPENEX HFA 45 MCG INHALER 2 PUFF INH ×2 (08:15→19:14)
--- NOTE | 2023-03-18 09:08 | PTCARENOTE ---
The patient is awake and oriented to name and place. He is forgetful of the date. He is groggy but easily arousable. He knows he had a heart attack and was stented, he also knows he has the flu. However, he didn't realize that he still has artery
disease and in need of a cabg in the future. He was assisted to the chair with a RW x2 assist. He swallowed his pills without difficulty and ate his breakfast without assistance. His call erazo is within reach and he did tell me how to properly use
it if he needs me.
[2023-03-18] MEDS: PRIMACOR 20 MG 100 IV ×2 (10:44→20:25)
[2023-03-18] MEDS: FLUSH (NSS) 2 FLUSH IV ×2 (12:30→17:17)
--- NOTE | 2023-03-18 12:40 | W.PN.NEPH.PH ---
Today's Communication / Plan
-
maintaining IV lasix and milrinone
Assessment/Plan
-
Assessment
-RACHELE
-CKD3b (1.7)
-HFrEF 25%, decompensated
-CAD
-Afib
-Anemia
-COPD
-TAVR
Plan
-milrinone per cardiology
-lasix to 80mg IV TID, 5 mg metolazone
- UOp ~ 3liters over past 24hrs
-creatinine unchanged at 2.5
-iron IV
-
-
Date of Service: March 18, 2023
CC / HPI / ROS
-
Chief Complaint:
RACHELE
History of Present Illness:
RACHELE/Cr down to 2.5
on milrinone for decompensated HF with IV lasix
BP stable
Review of Systems:
no CP/SOB
weights down
Labs
-
Labs:
WBC 7.4 10^3/uL (4.8-10.8) 03/18/23 04:26
RBC 3.91 10^6/uL (4.70-6.10) L 03/18/23 04:26
Hgb 10.1 g/dL (13.0-18.0) L 03/18/23 04:26
Hct 30.6 % (39.0-52.0) L 03/18/23 04:26
Plt Count 235 10^3/uL (130-400) 03/18/23 04:26
Sodium 135 mmol/L (135-145) 03/18/23 04:26
Potassium 3.5 mmol/L (3.5-5.1) 03/18/23 04:26
Chloride 95 mmol/L (98-107) L 03/18/23 04:26
Carbon Dioxide 29 mmol/L (22-30) 03/18/23 04:26
BUN 49 mg/dl (9-20) H 03/18/23 04:26
Creatinine 2.5 mg/dL (0.7-1.3) H 03/18/23 04:26
eGFR 25.98 03/18/23 04:26
Glucose 137 mg/dl (70-99) H 03/18/23 04:26
Calcium 10.4 mg/dl (8.4-10.2) H 03/18/23 04:26
Sff-E-Cdijpbgddlv Pept 1740 pg/ml 03/17/23 04:16
Albumin 3.4 g/dl (3.5-5.0) L 03/17/23 04:16
Physical Exam
-
Vital Signs:
Vital Signs
Temp Pulse Resp BP Pulse Ox
97.3 F 77 16 117/60 97
03/18/23 12:01 03/18/23 12:00 03/18/23 12:01 03/18/23 12:00 03/18/23 12:01
Cardiovascular:: Regular rate and rhythm
Respiratory:: Bilateral: Coarse
Lung Excursion:: Normal
Abdomen:: Distended, Nontender and Soft
Bowel Sounds:: Normal
Extremity Edema:: None: Bilateral:
Rodriguez Catheter: No
--- NOTE | 2023-03-18 13:25 | W.PN.HOSP.TC ---
Today's Communication/Plan
-
Continue with IV diuresis
Follow H&H
Continue with IV iron
Assessment / Plan
Assessment / Plan
pt is a 77 year old male
acute on chronic HFrEF exacerbation/Cardiomyopathy with ICD-- --On milrinone and diuresis--Admitting weight was 187 which is much higher than his baseline of 160s--Prior echo shows EF of 25 to 30% (09/2022)--patient's weight has decreased since
admission but has stalled for the last 4 days at 179 pounds.
Improved weight after adding metolazone.
Continue with IV diuresis
Continue with Coreg,
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
Normocytic anemia--Newly low. Other cell lines are okay-- iron deficient- --no overt external bleeding. Await heme occult testing stools. With the above symptoms and severe anemia discussed with the patient's risk and the benefit of transfusion.
I feel he would benefit a unit of transfusion of PRBC ;want to raise the hematocrit and see how his symptoms and heart failure respond. S/p 1 unit of PRBC 2/5 with improved hemoglobin and general feeling of improvement.. If heme positive consult
GI due to iron deficiency and patient being on anticoagulation.
Moderate mitral regurgitation/Moderate tricuspid regurgitation/Moderate pulmonary hypertension
Permanent atrial fibrillation--Continue Eliquis
Coronary artery disease status post PCI in 2005/CABG in 2018--Continue statin
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
Thyroid cancer status post thyroidectomy
COPD on 2 L in the night/morning as needed--Continue inhalers
Former smoker with hx of Lung cancer status post right upper lobe lobectomy
Restless leg syndrome--Continue gabapentin
code status --Full code
DVT prophylaxis�Eliquis
DW Cards Jovanni
Anticipated Discharge: 24 - 48 hours
Subjective/Interval History
-
Date of Service: March 18, 2023
Feeling improved since losing weight and blood transfusion.
Objective Data
-
Labs:
Laboratory Results
03/18/23
04:26
WBC 7.4
Hgb 10.1 L
Hct 30.6 L
Plt Count 235
Sodium 135
Potassium 3.5
Chloride 95 L
Carbon Dioxide 29
BUN 49 H
Creatinine 2.5 H
Glucose 137 H
Calcium 10.4 H
Vital Signs:
Vital Signs
Temp Pulse Resp BP Pulse Ox
97.3 F 77 16 117/60 97
03/18/23 12:01 03/18/23 12:00 03/18/23 12:01 03/18/23 12:00 03/18/23 12:01
I&O
03/17/23 03/18/23 03/19/23
06:59 06:59 06:59
Intake Total 185 / 185 350 / 350
Output Total 1700 / 1700 3575 / 3575 850 / 850
Balance -1515 / -1515 -3225 / -3225 -850 / -850
Review of Systems
-
Constitutional: Denies Fever
EENT: Denies Sore Throat
Respiratory: Denies Cough or Trouble Breathing (at rest)
Cardiac: Denies Chest Pain
Abdomen/GI: Denies Nausea or Vomiting
Neuro: Denies Dizzy
Physical Exam
-
General: No Apparent Distress
HEENT: Moist Mucous Membranes
Respiratory: Clear to Auscultation
Cardiac: Regular Rhythm and S1/S2
Neuro: AO x 3
Psych: Calm
Data Reviewed
-
Labs: Labs Reviewed by me
[2023-03-18] MEDS: MAG-TAB SR 84 MG PO (17:17)
--- NOTE | 2023-03-18 17:53 | PTCARENOTE ---
The patient has been OOB to the chair the majority of the shift. He uses his walking sticks x1 assist. His vitals signs remain stable. Afib with a BBB, prolonged Qt, and frequent PVCs has been noted on the monitor. He states that his SOB is no worse
than normal (since his right lobectomy). He complained of a headache earlier that was medicated with Tylenol.
[2023-03-18] MEDS: LIPITOR 40 MG PO (21:29)
[2023-03-18] MEDS: NEURONTIN 600 MG PO (21:29)
[2023-03-18] MEDS: DULCOLAX 10 MG PO (22:12)
--- NOTE | 2023-03-18 23:31 | PTCARENOTE ---
Pt rec'd at change of shift awake,alert Afib with BBB and freq pvc's noted. Occ non productive cough noted. 92% on r/a ,+ HYDE. Milrinone gtt continued at 0.375 (9.1cc/hr).
[2023-03-19] VITALS (12 sets, daily range): BP systolic 81–126; BP diastolic 34–58; BMI 23.5
[2023-03-19] MEDS: TYLENOL 650 MG PO ×2 (00:05→17:24)
--- NOTE | 2023-03-19 00:08 | PTCARENOTE ---
Pt calling nursing to room stating he thought he was getting confused. Recognized nurse by name. hands shaky and hurting. requested Tylenol dose given. emotional support given. bed alarm activated
[2023-03-19 05:06] LABS: Blood Urea Nitrogen 55 mg/dl (9-20); Calcium 10.5 mg/dl (8.4-10.2); Carbon Dioxide 29 mmol/L (22-30); Chloride 91 mmol/L (98-107); Estimated Creatinine Clearance 25 ml/min; Glucose 163 mg/dl (70-99); Potassium 3.2 mmol/L (3.5-5.1); Sodium 131 mmol/L (135-145); eGFR 22.67
[2023-03-19] MEDS: PRIMACOR 20 MG 100 IV ×2 (06:06→14:26)
--- NOTE | 2023-03-19 06:57 | PTCARENOTE ---
The patient had a BM, multiple small hard formed stools. There was bright red blood in the toilet and in the bowl.
[2023-03-19] MEDS: XOPENEX HFA 45 MCG INHALER 2 PUFF INH ×2 (07:34→19:42)
--- NOTE | 2023-03-19 08:34 | W.PN.HOSP.TC ---
Today's Communication/Plan
-
CW diuresis and Milrinone per cards
Follow Cr;replete K
Assessment / Plan
Assessment / Plan
pt is a 77 year old male
Acute on chronic HFrEF exacerbation/Cardiomyopathy with ICD-- --On milrinone and diuresis--Admitting weight was 187 which is much higher than his baseline of 160s--Prior echo shows EF of 25 to 30% (09/2022)--patient's weight has decreased since
admission , today 172 lbs.
Improved weight after adding metolazone.
Continue with IV diuresis
Continue with Coreg,
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
Hypokalemia -replete
Normocytic anemia--Newly low. Other cell lines are okay-- iron deficient- --no overt external bleeding. S/p 1 unit of PRBC 2/5 with improved hemoglobin and general feeling of improvement.. If heme positive consult GI due to iron deficiency and
patient being on anticoagulation.
Moderate mitral regurgitation/Moderate tricuspid regurgitation/Moderate pulmonary hypertension
Permanent atrial fibrillation--Continue Eliquis
Coronary artery disease status post PCI in 2004/CABG in 2018--Continue statin
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
Thyroid cancer status post thyroidectomy
COPD on 2 L in the night/morning as needed--Continue inhalers
Former smoker with hx of Lung cancer status post right upper lobe lobectomy
Restless leg syndrome--Continue gabapentin
code status --Full code
DVT prophylaxis�Eliquis
Anticipated Discharge: 24 - 48 hours
Subjective/Interval History
-
Date of Service: March 19, 2023
Feeling a little weak today.
Denies shortness of breath.
No chest pain.
No nausea vomiting.
No dizziness.
Objective Data
-
Labs:
Laboratory Results
03/19/23
03:38
Sodium 131 L
Potassium 3.2 L
Chloride 91 L
Carbon Dioxide 29
BUN 55 H
Creatinine 2.8 H
Glucose 163 H
Calcium 10.5 H
Vital Signs:
Vital Signs
Temp Pulse Resp BP Pulse Ox
97.8 F 89 20 126/58 93
03/19/23 08:20 03/19/23 08:20 03/19/23 08:20 03/19/23 08:20 03/19/23 08:20
I&O
03/18/23 03/19/23 03/20/23
06:59 06:59 06:59
Intake Total 350 / 350
Output Total 3575 / 3575 2275 / 2275 250 / 250
Balance -3225 / -3225 -2275 / -2275 -250 / -250
Review of Systems
-
Constitutional: Denies Fever
EENT: Denies Sore Throat
Respiratory: Denies Cough
Abdomen/GI: Denies Abdominal Pain
Physical Exam
-
General: No Apparent Distress
HEENT: Moist Mucous Membranes
Respiratory: Clear to Auscultation
Cardiac: Regular Rhythm and S1/S2; Negative Tachycardic
GI: Soft
Neuro: AO x 3
Psych: Calm
Data Reviewed
-
Labs: Labs Reviewed by me
[2023-03-19] MEDS: VITAMIN B-6 50 MG PO (08:46)
[2023-03-19] MEDS: KCL 20 MEQ PO (08:46)
[2023-03-19] MEDS: COREG 6.25 MG PO ×2 (08:46→20:59)
[2023-03-19] MEDS: ELIQUIS 5 MG PO ×2 (08:46→16:38)
[2023-03-19] MEDS: NEURONTIN 300 MG PO (08:46)
[2023-03-19] MEDS: KCL 40 MEQ PO (08:47)
--- NOTE | 2023-03-19 08:47 | W.PN.NEPH.PH ---
Today's Communication / Plan
-
abd US
Assessment/Plan
-
Assessment
-RACHELE
-CKD3b (1.7)
-HFrEF 25%, decompensated
-CAD
-Afib
-Anemia
-COPD
-TAVR
Plan
-milrinone per cardiology
-lasix to 80mg IV BID
-recommend RHC. he is not even close to old dry weight and Cr already climbing.
-check Abd US (apparently his volume is carried in the abdomen)
-Will need to know if we need to push diuresis as hard and risk kidney failure/dialysis
-
-
Date of Service: March 19, 2023
CC / HPI / ROS
-
Chief Complaint:
RACHELE
History of Present Illness:
RACHELE/Cr up to 2.8
K low 3.2
on milrinone for decompensated HF with IV lasix
BP stable
Review of Systems:
no CP/SOB
weights down somewhat
Labs
-
Labs:
WBC 7.4 10^3/uL (4.8-10.8) 03/18/23 04:26
RBC 3.91 10^6/uL (4.70-6.10) L 03/18/23 04:26
Hgb 10.1 g/dL (13.0-18.0) L 03/18/23 04:26
Hct 30.6 % (39.0-52.0) L 03/18/23 04:26
Plt Count 235 10^3/uL (130-400) 03/18/23 04:26
Sodium 131 mmol/L (135-145) L 03/19/23 03:38
Potassium 3.2 mmol/L (3.5-5.1) L 03/19/23 03:38
Chloride 91 mmol/L (98-107) L 03/19/23 03:38
Carbon Dioxide 29 mmol/L (22-30) 03/19/23 03:38
BUN 55 mg/dl (9-20) H 03/19/23 03:38
Creatinine 2.8 mg/dL (0.7-1.3) H 03/19/23 03:38
eGFR 22.67 03/19/23 03:38
Glucose 163 mg/dl (70-99) H 03/19/23 03:38
Calcium 10.5 mg/dl (8.4-10.2) H 03/19/23 03:38
Frm-G-Cbyeashxgur Pept 1740 pg/ml 03/17/23 04:16
Albumin 3.4 g/dl (3.5-5.0) L 03/17/23 04:16
Physical Exam
-
Vital Signs:
Vital Signs
Temp Pulse Resp BP Pulse Ox
97.8 F 89 20 126/58 93
03/19/23 08:20 03/19/23 08:20 03/19/23 08:20 03/19/23 08:20 03/19/23 08:20
Cardiovascular:: Regular rate and rhythm
Respiratory:: Bilateral: Coarse
Lung Excursion:: Normal
Abdomen:: Nontender and Soft
Bowel Sounds:: Normal
Extremity Edema:: None: Bilateral:
[2023-03-19] MEDS: FLUSH (NSS) 3 FLUSH IV (08:48)
[2023-03-19] MEDS: LASIX 80 MG IV ×2 (08:48→16:38)
[2023-03-19] MEDS: SENOKOT-S 1 TABLET PO ×2 (08:48→20:58)
--- NOTE | 2023-03-19 08:48 | W.PN.CD ---
Today's Communication / Plan
-
- continue lasix 80mg IV tid and metolazone as directed by nephrology. Renewed milrinone.
- goal weight around 150 lbs (euvolemic at that last summer). Currently 172. I'm not sure his kidneys will make it all the way to 150 lbs. - we may need to check RHC to see if we really need to go that far.
- Nursing notes report bloody BM
Impression / Plan
-
Impression: 77M with ICM EF 30% admitted with HFrEF
ICM, HFrEF (LVEF 30-35%), acute on chronic decompensation, severe, with cardiorenal syndrome requiring close monitoring of labs and tele
-Stage C, NYHA Class III-IV, now requiring milrinone at 0.375
-GDMT is limited in the setting of CKD (ALYSSA/ARB/ARNi/MRA) and hypotension. Medtronic ICD in place
-continue lasix 80mg IV tid and metolazone as directed by nephrology. Renewed milrinone.
-goal weight around 150 lbs (euvolemic at that last summer). Currently 172. I'm not sure his kidneys will make it all the way to 150 lbs. - we may need to check RHC to see if we really need to go that far.
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
-Volume overloaded (primarily abdominal distention).
-Nephrology now following; appreciate input.
CAD
-Inferior [place] with PCI 2004 & CABG 2017 (LOGAN-LAD, VG-PDA)
-Cardiac catheterization - new [place] vessel CAD with patent grafts - 10/07/22
-Stable without chest pain.
Permanent atrial fibrillation
-Remains rate controlled: continue coreg
-Oral Anticoagulation: Eliquis 5mg BID
-[id number]: score 4 (Heart failure, age 75 or more, Vascular disease)
Anemia
- Workup/management as per primary team.
- Nursing notes report bloody BM
WCT (2022), continue beta jade
Moderate mitral regurgitation, by TTE 09/2022
Bicuspid aortic valve with aortic stenosis and dilated aortic root s/p biologic AVR (27mm Braden) and an aortic tube graft (05/2017)
COPD, no acute wheeze
Former smoker, continued cessation recommended
Critically ill 34 minutes
Subjective: Abd distension improved. No CP, palps
Data:
L/RHC Sep 2022:
Right dominant circulation with an 80% lesion in the mid LAD and a chronic total occlusion of the mid RCA all the way to the bifurcation of the RPDA/RPL and a 30-40% mid RPDA lesion, status post prior two-vessel bypass (patent LOGAN to mid LAD,
patent SVG to mid RPDA backfilling the RPL).
Prior aortic valve replacement (#27 Braden magna 2800), well-seated, functioning normally. Prior aortic root replacement (#30 Hemashield [place]).
Normal filling pressures (LVEDP = 10 mmHg, PCWP = 10 mmHg at 68.0 kg/149.6 lbs.).
Severely depressed cardiac function (cardiac index = 1.63 L/min/m�).
Severely elevated SVR (1908 dynes/seconds/cm^-5).
TTE Mar 18:
Moderately reduced left ventricular systolic function. Estimated left ventricular ejection fraction is 30-35%.
Stage II diastolic dysfunction suggestive of abnormal relaxation and increased filling pressures.
Normal functioning bioprosthetic aortic valve replacement. Peak/mean gradients are 28/16� mmHg. No aortic regurgitation is seen.
Mild/moderate tricuspid regurgitation. Estimated pulmonary artery pressure of 41 mmHg, assuming a right atrial pressure of 8 mmHg.
Compared to 10/02/22: LVEF has improved from 25-30% to 30-35%.� MR has improved from moderate to mild. TR has improved from moderate to mild/moderate. PASP has �improved from 55 to 41 mmHg.
Laboratory Data
03/14/23 03/17/23 03/18/23
14:27 04:16 04:26
Hgb 10.1 L
Creatinine 2.7 H 2.4 H
03/18/23 03/19/23
04:26 03:38
Hgb
Creatinine 2.5 H 2.8 H
Selected Entries
03/14/23
17:27 03/14/23
21:55 03/18/23
06:00
Actual Weight 187 lb 9.814 oz 179 lb 3.773 oz 174 lb 9.698 oz
03/19/23
03:50 10/10/22
09:00
Actual Weight 172 lb 13.478
oz 150 lb 12.739
oz
Generic Name Dose Route Start Last Admin
Trade Name Freq PRN Reason Stop Dose Admin
Milrinone Lactate/Dextrose 20 mg in 100 mls @ 0 mls/hr 03/14/23 17:30
Primacor 20 Mg IV
PER PROTOCOL PIETRO
Protocol
Per Protocol
Carvedilol 6.25 mg 03/14/23 20:44
Carvedilol 6.25 Mg Tablet PO 04/11/23 20:43
Q12 PIETRO
Apixaban 5 mg 03/15/23 08:00
Apixaban (Eliquis) 5 Mg Tablet PO 04/12/23 07:59
BID@0800,1600 PIETRO
Potassium Chloride 20 meq 03/15/23 08:00
Potassium Chloride 20 Meq Extended Release Tablet PO 04/12/23 07:59
DAILY PIETRO
Atorvastatin Calcium 40 mg 03/14/23 22:00
Atorvastatin (Lipitor) 40 Mg Tablet PO 04/11/23 21:59
HS PIETRO
Furosemide 80 mg 03/17/23 18:00
Furosemide 100 Mg (10 Mg/Ml) 10 Ml Vial IV 04/14/23 17:59
TID@0800,1300,1800 PIETRO
Physical Exam
Vital Signs/Labs
Vital Signs
Temp Pulse Resp BP Pulse Ox
36.6 C 89 20 126/58 93
02/07/24 08:20 03/19/23 08:20 03/19/23 08:20 03/19/23 08:20 03/19/23 08:20
03/18/23 03/19/23 03/20/23
06:59 06:59 06:59
Actual Weight 174 lb 9.698 oz 172 lb 13.478 oz
03/18/23 04:26
03/19/23 03:38
Magnesium 2.4 mg/dl (1.6-2.3) H 03/17/23 04:16
03/17/23
04:16
Zjl-Q-Sjulvdpfyji Pept 1740
Physical Exam
Constitutional: No acute distress
EENT: Anicteric and Moist mucous membranes
Cardiovascular: Rhythm & rate is regular, Pedal edema is absent, Systolic murmur absent and Diastolic murmur absent
Respiratory: Respiratory effort normal
GI: Soft, Distention absent, Non tender and Normal bowel sounds
Neuro/Psych: Alert and Oriented
Other: Skin
Data Reviewed
-
Date of Service: March 19, 2023
[2023-03-19] MEDS: FERRLECIT 110 MG IV (08:51)
[2023-03-19] MEDS: FLUSH (NSS) 2 FLUSH IV (16:38)
--- NOTE | 2023-03-19 16:39 | CM ---
CM following for DC planning needs.
Reviewed initial assessment. Pt. resides w/ spouse in a private, 2 story home w/ 2 RALF. Functionally, patient is indep. w/ ADLs, mobility using a walking stick.
Noted PT evaluation with recommendation for home health.
Will meet w/ patient to offer VN prior to DC.
[2023-03-19] MEDS: MAG-TAB SR 84 MG PO (17:24)
--- NOTE | 2023-03-19 17:38 | PTCARENOTE ---
The patient has been oob to the chair the majority of the shift. His vital signs remain stable. Afib with frequent PVCs noted on the monitor. He complained of a headache. He rated it an 8 out 10 on scale and I medicated him with Tylenol.
--- NOTE | 2023-03-19 21:52 | PTCARENOTE ---
Addendum entered by Mohit Pascual RN 03/19/23 21:59:
Milrinone drip infusing at 0.375 mcg/kg/min per protocol.
Original Note:
Pt received at start of shift, HR A-fib w/ PVCs 80s-100s. Pt maintained on contact precautions. Pt O2 89-90% RA, 2L placed on pt 94-97%. Pt denies any CP, worsening SOB (baseline SOB since lobectomy), or lightheadedness/dizziness. Informed to notify
RN if any changes, call erazo within reach.
[2023-03-19] MEDS: LIPITOR 40 MG PO (22:49)
[2023-03-19] MEDS: NEURONTIN 600 MG PO (22:49)
[2023-03-20] VITALS (10 sets, daily range): BP systolic 102–125; BP diastolic 41–61; PULSE 70–77; O2SAT 94; BMI 23.2
[2023-03-20] MEDS: PRIMACOR 20 MG 100 IV ×3 (00:25→22:49)
[2023-03-20 03:32] LABS: Hematocrit 33.1 % (39.0-52.0); Mean Corp Hgb Conc. 33.2 g/dL (33.0-37.0); Mean Corpuscular Hgb 25.4 pg (27.0-31.0); Mean Corpuscular Volume 76.4 fL (80.0-94.0); Mean Platelet Volume 9.3 fL (7.4-10.4); Platelet Count 267 10^3/uL (130-400); Red Blood Cell Count 4.33 10^6/uL (4.70-6.10); White Blood Cell Count 8.4 10^3/uL (4.8-10.8)
[2023-03-20 03:57] LABS: Blood Urea Nitrogen 59 mg/dl (9-20); Calcium 10.3 mg/dl (8.4-10.2); Carbon Dioxide 31 mmol/L (22-30); Chloride 93 mmol/L (98-107); Estimated Creatinine Clearance 23 ml/min; Glucose 142 mg/dl (70-99); Potassium 3.3 mmol/L (3.5-5.1); Sodium 132 mmol/L (135-145); eGFR 20.87
[2023-03-20] MEDS: XOPENEX HFA 45 MCG INHALER 2 PUFF INH ×2 (07:29→20:26)
[2023-03-20] MEDS: ELIQUIS 5 MG PO ×2 (08:29→15:48)
[2023-03-20] MEDS: NEURONTIN 300 MG PO (08:29)
[2023-03-20] MEDS: VITAMIN B-6 50 MG PO (08:29)
[2023-03-20] MEDS: FERRLECIT 110 MG IV (08:29)
[2023-03-20] MEDS: KCL 20 MEQ PO ×2 (08:29→19:46)
[2023-03-20] MEDS: SENOKOT-S 1 TABLET PO ×2 (08:29→19:46)
[2023-03-20] MEDS: COREG 6.25 MG PO ×2 (08:29→19:46)
--- NOTE | 2023-03-20 09:34 | W.PN.HOSP.TC ---
Today's Communication/Plan
-
Continue with IV diuresis
Continue with milrinone per cardiology
Assessment / Plan
Assessment / Plan
pt is a 77 year old male
Acute on chronic HFrEF exacerbation/Cardiomyopathy with ICD-- --On milrinone and diuresis--Admitting weight was 187 which is much higher than his baseline of 160s--Prior echo shows EF of 25 to 30% (09/2022)--patient's weight has decreased since
admission , today 172 lbs.
Improved weight after adding metolazone but not at his baseline.
Continue with IV diuresis
Continue with Coreg,
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
Worsening creatinine noted.
Discussions about right heart catheterization noted.
Hypokalemia -replete
Normocytic anemia--Newly low. Other cell lines are okay-- iron deficient- --no overt external bleeding. S/p 1 unit of PRBC 2/5 with improved hemoglobin and general feeling of improvement.. Hemoglobin remained stable. If heme positive consult GI
due to iron deficiency and patient being on anticoagulation.
Moderate mitral regurgitation/Moderate tricuspid regurgitation/Moderate pulmonary hypertension
Permanent atrial fibrillation--Continue Eliquis
Coronary artery disease status post PCI in 2004/CABG in 2018--Continue statin
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
Thyroid cancer status post thyroidectomy
COPD on 2 L in the night/morning as needed--Continue inhalers
Former smoker with hx of Lung cancer status post right upper lobe lobectomy
Restless leg syndrome--Continue gabapentin
code status --Full code
DVT prophylaxis�Eliquis
Anticipated Discharge: > 48 hours
Subjective/Interval History
-
Date of Service: March 20, 2023
Denies any shortness of breath at rest. Tolerating diet. No constipation.
No chest pains or palpitations.
Objective Data
-
Labs:
Laboratory Results
03/20/23
03:22
WBC 8.4
Hgb 11.0 L
Hct 33.1 L
Plt Count 267
Sodium 132 L
Potassium 3.3 L
Chloride 93 L
Carbon Dioxide 31 H
BUN 59 H
Creatinine 3.0 H
Glucose 142 H
Calcium 10.3 H
Vital Signs:
Vital Signs
Temp Pulse Resp BP Pulse Ox
97.9 F 86 20 116/50 96
03/20/23 08:11 03/20/23 07:45 03/20/23 08:11 03/20/23 03:13 03/20/23 08:11
I&O
03/19/23 03/20/23 03/21/23
06:59 06:59 06:59
Intake Total 72.8 / 72.8
Output Total 2275 / 2275 1005 / 1005
Balance -2275 / -2275 -932.2 / -932.2
Review of Systems
-
Constitutional: Denies Fever or Chills
EENT: Denies Sore Throat
Respiratory: Denies Cough
Neuro: Denies Dizzy
Physical Exam
-
General: No Apparent Distress
HEENT: Moist Mucous Membranes
Respiratory: Clear to Auscultation
Cardiac: Regular Rhythm and S1/S2
Neuro: AO x 3
Data Reviewed
-
Labs: Labs Reviewed by me
[2023-03-20] MEDS: LASIX 80 MG IV (10:06)
[2023-03-20] MEDS: FLUSH (NSS) 1 FLUSH IV ×2 (10:08→19:47)
[2023-03-20] MEDS: KCL 40 MEQ PO ×2 (10:14→16:27)
--- NOTE | 2023-03-20 10:27 | W.PN.CD ---
Today's Communication / Plan
-
will renew milrinone
needs RHC best timing to be determined
he is agreeable.
Impression / Plan
-
Impression: 77M with ICM EF 30% admitted with HFrEF
ICM, HFrEF (LVEF 30-35%), acute on chronic decompensation, severe, with cardiorenal syndrome requiring close monitoring of labs and tele
-Stage C, NYHA Class III-IV, now requiring milrinone at 0.375
-GDMT is limited in the setting of CKD (ALYSSA/ARB/ARNi/MRA) and hypotension. Medtronic ICD in place
-currently on milrinone, lasix 80mg IV tid and metolazone as directed by nephrology.
-with rising cr and still 20 lbs above our 'goal weight', RHC is indicated to direct therapy.
-Will discuss with interventional re timing for later today vs tomorrow.
-goal weight around 150 lbs (euvolemic at that last summer).
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
-Volume overloaded (primarily abdominal distention).
-Nephrology now following; appreciate input.
-Cr now up to 3
CAD
-Inferior [place] with PCI 2004 & CABG 2017 (LOGAN-LAD, VG-PDA)
-Cardiac catheterization - [place] vessel CAD with patent grafts - 10/07/22
-Stable without chest pain.
Permanent atrial fibrillation
-Remains rate controlled: continue coreg
-Oral Anticoagulation: Eliquis 5mg BID
-[id number]: score 4 (Heart failure, age 75 or more, Vascular disease)
Anemia
- Workup/management as per primary team.
- Nursing notes report bloody BM
WCT (2022), continue beta jade
Moderate mitral regurgitation, by TTE 09/2022
Bicuspid aortic valve with aortic stenosis and dilated aortic root s/p biologic AVR (27mm Braden) and an aortic tube graft (05/2017)
COPD, no acute wheeze
Former smoker, continued cessation recommended
Critically ill 32 minutes
Subjective: Abd distension improved---was '6months when I got here'. No CP, palps
Data:
L/RHC Sep 2022:
Right dominant circulation with an 80% lesion in the mid LAD and a chronic total occlusion of the mid RCA all the way to the bifurcation of the RPDA/RPL and a 30-40% mid RPDA lesion, status post prior two-vessel bypass (patent LOGAN to mid LAD,
patent SVG to mid RPDA backfilling the RPL).
Prior aortic valve replacement (#27 Braden magna 2800), well-seated, functioning normally. Prior aortic root replacement (#30 Hemashield [place]).
Normal filling pressures (LVEDP = 10 mmHg, PCWP = 10 mmHg at 68.0 kg/149.6 lbs.).
Severely depressed cardiac function (cardiac index = 1.63 L/min/m�).
Severely elevated SVR (1908 dynes/seconds/cm^-5).
TTE Mar 18:
Moderately reduced left ventricular systolic function. Estimated left ventricular ejection fraction is 30-35%.
Stage II diastolic dysfunction suggestive of abnormal relaxation and increased filling pressures.
Normal functioning bioprosthetic aortic valve replacement. Peak/mean gradients are 28/16� mmHg. No aortic regurgitation is seen.
Mild/moderate tricuspid regurgitation. Estimated pulmonary artery pressure of 41 mmHg, assuming a right atrial pressure of 8 mmHg.
Compared to 10/02/22: LVEF has improved from 25-30% to 30-35%.� MR has improved from moderate to mild. TR has improved from moderate to mild/moderate. PASP has �improved from 55 to 41 mmHg.
Physical Exam
Vital Signs/Labs
Vital Signs
Temp Pulse Resp BP Pulse Ox
97.9 F 86 20 116/50 96
03/20/23 08:11 03/20/23 07:45 03/20/23 08:11 03/20/23 03:13 03/20/23 08:11
03/19/23 03/20/2324
06:59 06:59 06:59
Actual Weight 78.4 kg 77.6 kg
03/20/23 03:22
03/20/23 03:22
Magnesium 2.4 mg/dl (1.6-2.3) H 03/17/23 04:16
03/17/23
04:16
Rfq-C-Turbyaokkzn Pept 1740
Physical Exam
Constitutional: No acute distress
Cardiovascular: Rhythm & rate is regular, Pedal edema is absent and JVD pressure is normal
Respiratory: Respiratory effort normal, Lungs clear to auscul., Wheeze Absent, Crackles Absent and Rhonchi Absent
Neuro/Psych: AO x 3
Data Reviewed
-
Date of Service: March 20, 2023
X-Ray/CT/US/MRI/NUC/PET: Discussed with Physician (Dr Rich and Dr Del Rosario, [facility] indicated,will d/w Dr Ocampo re timing) and Discussed with Patient (agreeable to [facility])
--- NOTE | 2023-03-20 11:00 | W.PN.NEPH.PH ---
Today's Communication / Plan
-
RHC
Assessment/Plan
-
Assessment
-RACHELE
-CKD3b (1.7)
-HFrEF 25%, decompensated
-CAD
-Afib
-Anemia
-COPD
-TAVR
Plan
-milrinone continue
-hold further lasix after this morning
-US shows no ascities
-recommend RHC. he is not even close to old dry weight and Cr already climbing.
-Will need to know if we need to push diuresis as hard and risk kidney failure/dialysis
-
-
Date of Service: March 20, 2023
CC / HPI / ROS
-
Chief Complaint:
RACHELE
History of Present Illness:
RACHELE/Cr up to 3.0
K low 3.3
Na low 132
on milrinone for decompensated HF with IV lasix
BP stable
Review of Systems:
no CP/SOB
weights down minimally
Labs
-
Labs:
WBC 8.4 10^3/uL (4.8-10.8) 03/20/23 03:22
RBC 4.33 10^6/uL (4.70-6.10) L 03/20/23 03:22
Hgb 11.0 g/dL (13.0-18.0) L 03/20/23 03:22
Hct 33.1 % (39.0-52.0) L 03/20/23 03:22
Plt Count 267 10^3/uL (130-400) 03/20/23 03:22
Sodium 132 mmol/L (135-145) L 03/20/23 03:22
Potassium 3.3 mmol/L (3.5-5.1) L 03/20/23 03:22
Chloride 93 mmol/L (98-107) L 03/20/23 03:22
Carbon Dioxide 31 mmol/L (22-30) H 03/20/23 03:22
BUN 59 mg/dl (9-20) H 03/20/23 03:22
Creatinine 3.0 mg/dL (0.7-1.3) H 03/20/23 03:22
eGFR 20.87 03/20/23 03:22
Glucose 142 mg/dl (70-99) H 03/20/23 03:22
Calcium 10.3 mg/dl (8.4-10.2) H 03/20/23 03:22
Uxs-W-Mhpcwatswbh Pept 1740 pg/ml 03/17/23 04:16
Albumin 3.4 g/dl (3.5-5.0) L 03/17/23 04:16
Physical Exam
-
Vital Signs:
Vital Signs
Temp Pulse Resp BP Pulse Ox
97.9 F 86 20 102/53 96
03/20/23 08:11 03/20/23 10:00 03/20/23 08:11 03/20/23 08:23 03/20/23 08:23
Cardiovascular:: Regular rate and rhythm
Respiratory:: Bilateral: Coarse
Lung Excursion:: Normal
Abdomen:: Nontender and Soft
Bowel Sounds:: Normal
Extremity Edema:: None: Bilateral:
--- NOTE | 2023-03-20 11:32 | CM ---
CM following for DC planning needs.
Met w patient, spouse at bedside. Spouse states that 'it is not a good day'. Offered support.
Pt. in/out of sleep.
DC needs undetermined at this time. Awaiting medical progress, progress in therapy. PT currently recommending home PT, did not discuss due to current medical issues. Will follow.
[2023-03-20 15:28] LABS: Blood Urea Nitrogen 62 mg/dl (9-20); Calcium 10.3 mg/dl (8.4-10.2); Carbon Dioxide 30 mmol/L (22-30); Chloride 93 mmol/L (98-107); Estimated Creatinine Clearance 23 ml/min; Glucose 151 mg/dl (70-99); Potassium 3.2 mmol/L (3.5-5.1); Sodium 131 mmol/L (135-145); eGFR 20.87
[2023-03-20] MEDS: MAG-TAB SR 84 MG PO (16:28)
--- NOTE | 2023-03-20 19:06 | PTCARENOTE ---
Pt tolerated OOB in the chair for breakfast and lunch. Remains on room air, sat 96%. Denies any pain or sob. Mild HYDE. Voiding clear tami urine in the urinal.
[2023-03-20] MEDS: LIPITOR 40 MG PO (22:10)
[2023-03-20] MEDS: NEURONTIN 600 MG PO (22:10)
[2023-03-21] VITALS (13 sets, daily range): BP systolic 91–126; BP diastolic 53–98; BMI 23.3
--- NOTE | 2023-03-21 00:13 | PTCARENOTE ---
Received patient at change of shift this PM. AAOx3. VSS. He is A-Fib on the monitor. HR in the 70s-80s. INTx2 patent. Milrinone gtt running at 9.1mL/hr. He denies chest pain or discomfort. Plan of care discussed. He is receptive to teaching and
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 We discussed his medications. He has no further questions about these at this time. He denies pain and appears comfortable in bed.
Will continue to monitor.
[2023-03-21 05:44] LABS: Blood Urea Nitrogen 65 mg/dl (9-20); Calcium 10.6 mg/dl (8.4-10.2); Carbon Dioxide 29 mmol/L (22-30); Chloride 93 mmol/L (98-107); Estimated Creatinine Clearance 23 ml/min; Glucose 134 mg/dl (70-99); Potassium 3.8 mmol/L (3.5-5.1); Sodium 134 mmol/L (135-145); eGFR 20.87
[2023-03-21] MEDS: XOPENEX HFA 45 MCG INHALER 2 PUFF INH ×2 (08:01→17:55)
[2023-03-21] MEDS: FERRLECIT 110 MG IV (08:10)
--- NOTE | 2023-03-21 08:14 | W.PN.CD ---
Today's Communication / Plan
-
RHC is indicated to direct therapy -> today
Impression / Plan
-
Impression: 77M with ICM EF 30% admitted with HFrEF
Plan:
ICM, HFrEF (LVEF 30-35%), acute on chronic decompensation, severe, with cardiorenal syndrome requiring close monitoring of labs and tele
-Stage C, NYHA Class III-IV, now requiring milrinone at 0.375
-GDMT is limited in the setting of CKD (ALYSSA/ARB/ARNi/MRA) and hypotension. Medtronic ICD in place
-currently on milrinone, lasix 80mg IV tid and metolazone as directed by nephrology.
-with rising cr and still 20 lbs above our 'goal weight', RHC is indicated to direct therapy -> today
-goal weight around 150 lbs (euvolemic at that last summer).
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
-Volume overloaded (primarily abdominal distention). Improved.
-Nephrology now following; appreciate input.
-Cr now up to 3, but stable.
CAD
-Inferior VA with PCI 2004 & CABG 2017 (LOGAN-LAD, VG-PDA)
-Cardiac catheterization - circle vessel CAD with patent grafts - 10/07/22
-Stable without chest pain.
Permanent atrial fibrillation
-Remains rate controlled: continue coreg
-Oral Anticoagulation: Eliquis 5mg BID
-[id number]: score 4 (Heart failure, age 75 or more, Vascular disease)
Anemia - improved with diuresis.
WCT (2022), continue beta jade
Moderate mitral regurgitation, by TTE 09/2022
Bicuspid aortic valve with aortic stenosis and dilated aortic root s/p biologic AVR (27mm Braden) and an aortic tube graft (05/2017)
COPD, no acute wheeze
Former smoker, continued cessation recommended
Critically ill 34 minutes
Subjective: He feels his abdominal distension has resolved. He has a tremor that is new
Data:
L/RHC Sep 2022:
Right dominant circulation with an 80% lesion in the mid LAD and a chronic total occlusion of the mid RCA all the way to the bifurcation of the RPDA/RPL and a 30-40% mid RPDA lesion, status post prior two-vessel bypass (patent LOGAN to mid LAD,
patent SVG to mid RPDA backfilling the RPL).
Prior aortic valve replacement (#27 Braden magna [id number]), well-seated, functioning normally. Prior aortic root replacement (#30 Hemashield viejas).
Normal filling pressures (LVEDP = 10 mmHg, PCWP = 10 mmHg at 68.0 kg/149.6 lbs.).
Severely depressed cardiac function (cardiac index = 1.63 L/min/m�).
Severely elevated SVR (1908 dynes/seconds/cm^-5).
TTE Mar 18:
Moderately reduced left ventricular systolic function. Estimated left ventricular ejection fraction is 30-35%.
Stage II diastolic dysfunction suggestive of abnormal relaxation and increased filling pressures.
Normal functioning bioprosthetic aortic valve replacement. Peak/mean gradients are 28/16� mmHg. No aortic regurgitation is seen.
Mild/moderate tricuspid regurgitation. Estimated pulmonary artery pressure of 41 mmHg, assuming a right atrial pressure of 8 mmHg.
Compared to 10/02/22: LVEF has improved from 25-30% to 30-35%.� MR has improved from moderate to mild. TR has improved from moderate to mild/moderate. PASP has �improved from 55 to 41 mmHg.
Physical Exam
Vital Signs/Labs
Vital Signs
Temp Pulse Resp BP Pulse Ox
36.7 C 73 16 104/53 93
03/21/23 07:25 03/21/23 08:06 03/21/23 08:06 03/21/23 04:46 03/21/23 08:06
03/20/23 03/21/23 03/22/23
06:59 06:59 06:59
Actual Weight 171 lb 8.314 oz
03/20/23 03:22
03/21/23 04:54
Magnesium 2.4 mg/dl (1.6-2.3) H 03/17/23 04:16
03/17/23
04:16
Zzh-V-Zhuucbcgwaw Pept 1740
Physical Exam
Constitutional: No acute distress
EENT: Anicteric and Moist mucous membranes
Cardiovascular: Rhythm & rate is regular, Systolic murmur absent and Diastolic murmur absent
Data Reviewed
-
Date of Service: March 21, 2023
--- NOTE | 2023-03-21 08:47 | W.PN.HOSP.TC ---
Today's Communication/Plan
-
RHC today
Assessment / Plan
Assessment / Plan
pt is a 77 year old male
Acute on chronic HFrEF exacerbation/Cardiomyopathy with ICD-- --On milrinone and diuresis--Admitting weight was 187 which is much higher than his baseline of 160s--Prior echo shows EF of 25 to 30% (09/2022)--patient's weight has decreased since
admission , today 171 lbs.
Improved weight after adding metolazone but not at his baseline.
Continue with IV diuresis
Continue with Coreg
For RHC today
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
Worsening creatinine noted.
RHC today
Hypokalemia -repleted
Normocytic anemia--Newly low. Other cell lines are okay-- iron deficient- --no overt external bleeding. S/p 1 unit of PRBC 2/5 with improved hemoglobin and general feeling of improvement.. Hemoglobin remained stable. If heme positive consult GI
due to iron deficiency and patient being on anticoagulation.
Moderate mitral regurgitation/Moderate tricuspid regurgitation/Moderate pulmonary hypertension
Permanent atrial fibrillation--Continue Eliquis
Coronary artery disease status post PCI in 2004/CABG in 2018--Continue statin
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
Thyroid cancer status post thyroidectomy
COPD on 2 L in the night/morning as needed--Continue inhalers
Former smoker with hx of Lung cancer status post right upper lobe lobectomy
Restless leg syndrome--Continue gabapentin
code status --Full code
DVT prophylaxis�Eliquis
Anticipated Discharge: > 48 hours
Subjective/Interval History
-
Date of Service: March 21, 2023
Await RHC
Denies chest pain or shortness of breath at rest.
No nausea vomiting
Objective Data
-
Labs:
Laboratory Results
03/21/23
04:54
Sodium 134 L
Potassium 3.8
Chloride 93 L
Carbon Dioxide 29
BUN 65 H
Creatinine 3.0 H
Glucose 134 H
Calcium 10.6 H
Vital Signs:
Vital Signs
Temp Pulse Resp BP Pulse Ox
98.1 F 73 16 104/53 93
03/21/23 07:25 03/21/23 08:06 03/21/23 08:06 03/21/23 04:46 03/21/23 08:06
I&O
03/20/23 03/21/23 03/22/23
06:59 06:59 06:59
Intake Total 72.8 / 72.8 1069.2 / 1069.2
Output Total 1005 / 1005 1075 / 1075
Balance -932.2 / -932.2 -5.8 / -5.8
Review of Systems
-
Respiratory: Denies Trouble Breathing
Cardiac: Denies Chest Pain or Palpitations
Abdomen/GI: Denies Abdominal Pain, Nausea or Vomiting
Neuro: Denies Dizzy
Physical Exam
-
General: No Apparent Distress
HEENT: Moist Mucous Membranes
Respiratory: Clear to Auscultation
Cardiac: Regular Rhythm and S1/S2
GI: Soft
Neuro: AO x 3
Psych: Calm
Data Reviewed
-
Labs: Labs Reviewed by me
[2023-03-21] MEDS: NEURONTIN 300 MG PO (09:43)
[2023-03-21] MEDS: VITAMIN B-6 50 MG PO (09:43)
[2023-03-21] MEDS: KCL 20 MEQ PO ×2 (09:43→20:42)
[2023-03-21] MEDS: SENOKOT-S 1 TABLET PO ×2 (09:43→20:41)
[2023-03-21] MEDS: COREG 6.25 MG PO ×2 (09:44→20:41)
[2023-03-21] MEDS: PRIMACOR 20 MG 100 IV ×2 (10:05→21:14)
--- NOTE | 2023-03-21 10:50 | ITS.CL.CATH ---
[facility] - Catheterization
Cardiac Catheterization
Procedure Report:
RIGHT HEART CATHETERIZATION
Date of Procedure: 03/21/2023
Referring: Jaz Spence MD
INDICATION: Likely her volume status with CHF
RA: 10
RV: 34/12
PA: 35/15
PCWP: 11
Oximetry: Ao 95%, PA 63%, cardiac output 4.1, cardiac index 2.1
COMPLICATIONS: None
Radiation (mGy): 98.7
DAP (cm2.Gy): 16.4
Fluoroscopy time: 7.1 minutes
CONCLUSION: Normal filling pressures with low normal cardiac output. The patient is euvolemic at his current weight of 171 pounds
Copy to: Yoan Huffman MD, Patric Riley MD
Naif Ocampo MD, [facility], [facility]
--- NOTE | 2023-03-21 11:46 | W.PN.NEPH.PH ---
Today's Communication / Plan
-
IV diuretics off
follow bmp
Assessment/Plan
-
Assessment
-RACHELE
-CKD3b (1.7)
-HFrEF 25%, decompensated
-CAD
-Afib
-Anemia
-COPD
-TAVR
Plan
-milrinone continued for now
-RHC PWCP ~13
-IV lasix now off
-80mg po daily was provided by cardiology
-US shows no ascities
-creatinine unchanged at 3
-weights unchanged and hemodynamically stable
-
-
Date of Service: March 21, 2023
CC / HPI / ROS
-
Chief Complaint:
RACHELE
History of Present Illness:
RACHELE/Cr up to 3.0
Na low 134
on milrinone for decompensated HF
BP stable
Review of Systems:
no CP/SOB
weights down minimally
Labs
-
Labs:
WBC 8.4 10^3/uL (4.8-10.8) 03/20/23 03:22
RBC 4.33 10^6/uL (4.70-6.10) L 03/20/23 03:22
Hgb 11.0 g/dL (13.0-18.0) L 03/20/23 03:22
Hct 33.1 % (39.0-52.0) L 03/20/23 03:22
Plt Count 267 10^3/uL (130-400) 03/20/23 03:22
Sodium 134 mmol/L (135-145) L 03/21/23 04:54
Potassium 3.8 mmol/L (3.5-5.1) 03/21/23 04:54
Chloride 93 mmol/L (98-107) L 03/21/23 04:54
Carbon Dioxide 29 mmol/L (22-30) 03/21/23 04:54
BUN 65 mg/dl (9-20) H 03/21/23 04:54
Creatinine 3.0 mg/dL (0.7-1.3) H 03/21/23 04:54
eGFR 20.87 03/21/23 04:54
Glucose 134 mg/dl (70-99) H 03/21/23 04:54
Calcium 10.6 mg/dl (8.4-10.2) H 03/21/23 04:54
Wyv-I-Bqcbtugidtb Pept 1740 pg/ml 03/17/23 04:16
Albumin 3.4 g/dl (3.5-5.0) L 03/17/23 04:16
Physical Exam
-
Vital Signs:
Vital Signs
Temp Pulse Resp BP Pulse Ox
97.5 F 81 16 126/98 90
03/21/23 11:21 03/21/23 11:21 03/21/23 11:21 03/21/23 09:44 03/21/23 11:21
Cardiovascular:: Regular rate and rhythm
Respiratory:: Bilateral: Coarse
Lung Excursion:: Normal
Abdomen:: Nontender and Soft
Bowel Sounds:: Normal
Extremity Edema:: None: Bilateral:
Rodriguez Catheter: No
--- NOTE | 2023-03-21 13:12 | PTCARENOTE ---
Received pt from the [facility] right heart cath. Pt drowsy, VSS. Right groin site w/ dressings clean, dry and intact. Milrinone drip infusing at 0.375 mcg/kg/min. Will monitor.
--- NOTE | 2023-03-21 13:37 | CM ---
CM following for DC planning needs.
CM met w/ patient, spouse at bedside. Pt had just returned from CATH and was sleepy.
Reiterated role of CM.
Noted last PT note with recommendation for home VN versus SNF. Did not address w/ patient as spouse overwhelmed with medical status.
Will follow closely.
--- NOTE | 2023-03-21 16:34 | PTCARENOTE ---
Pt c/o feeling very weak. Pt c/o increased hand tremors and twitching. VSS. Will monitor.
[2023-03-21] MEDS: MAG-TAB SR 84 MG PO (18:44)
[2023-03-21] MEDS: LIPITOR 40 MG PO (21:14)
[2023-03-21] MEDS: NEURONTIN 600 MG PO (21:14)
--- NOTE | 2023-03-21 22:35 | PTCARENOTE ---
Received patient at change of shift this PM. AAOx3. He shares concerns of worsening hand tremors with associated weakness. He states that this has been ongoing for the past few days, but is worsening. VSS. He is A-Fib on the monitor with PVCs. HR in
the 70s-80s. INTx2 patent. Milrinone drip order renewed and running at 9.1mL/hr. He denies chest pain or discomfort. Plan of care discussed with patient and on the telephone. He is receptive to teaching and motivated, but has some physical
limitations with impaired vision and weakness. We discussed his medications and he has no further questions about these at this time. He appears comfortable in bed and understands to use his call erazo for assistance. Will continue to monitor.
[2023-03-22] VITALS (9 sets, daily range): BP systolic 97–129; BP diastolic 50–81; PULSE 72; BMI 23.6
[2023-03-22 03:00] LABS: Blood Urea Nitrogen 61 mg/dl (9-20); Calcium 10.5 mg/dl (8.4-10.2); Carbon Dioxide 29 mmol/L (22-30); Chloride 94 mmol/L (98-107); Estimated Creatinine Clearance 28 ml/min; Glucose 175 mg/dl (70-99); Potassium 3.8 mmol/L (3.5-5.1); Sodium 133 mmol/L (135-145); eGFR 25.98
[2023-03-22] MEDS: PRIMACOR 20 MG 100 IV (07:13)
[2023-03-22] MEDS: XOPENEX HFA 45 MCG INHALER 2 PUFF INH ×2 (08:23→18:06)
[2023-03-22] MEDS: NEURONTIN 300 MG PO (08:32)
[2023-03-22] MEDS: ELIQUIS 5 MG PO ×2 (08:32→16:45)
[2023-03-22] MEDS: LASIX 80 MG PO (08:33)
[2023-03-22] MEDS: VITAMIN B-6 50 MG PO (08:33)
[2023-03-22] MEDS: KCL 20 MEQ PO ×2 (08:33→20:24)
[2023-03-22] MEDS: FERRLECIT 110 MG IV (08:33)
[2023-03-22] MEDS: SENOKOT-S 1 TABLET PO ×2 (08:33→20:24)
[2023-03-22] MEDS: COREG 6.25 MG PO ×2 (08:33→20:24)
--- NOTE | 2023-03-22 08:38 | W.PN.CD ---
Today's Communication / Plan
-
stop milrinone today, and trend weight, Cr
Impression / Plan
-
Impression: 77M with ICM EF 30% admitted with HFrEF
Plan:
ICM, HFrEF (LVEF 30-35%), acute on chronic decompensation, severe, with cardiorenal syndrome requiring close monitoring of labs and tele
-Stage C, NYHA Class III-IV
-GDMT is limited in the setting of CKD (ALYSSA/ARB/ARNi/MRA) and hypotension. Medtronic ICD in place
-RHC 03/21: PCW 11 at 77.6kg
-now on lasix 80mg PO daily
-stop milrinone today, and trend weight, Cr
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
-Volume overloaded (primarily abdominal distention). Improved.
-Nephrology now following; appreciate input.
CAD
-Inferior VT with PCI 2004 & CABG 2017 (LOGAN-LAD, VG-PDA)
-Cardiac catheterization - napaimute vessel CAD with patent grafts - 10/07/22
-Stable without chest pain.
Permanent atrial fibrillation
-Remains rate controlled: continue coreg
-Oral Anticoagulation: Eliquis 5mg BID
-[id number]: score 4 (Heart failure, age 75 or more, Vascular disease)
Anemia - improved
WCT (2022), continue beta jade
Moderate mitral regurgitation, by TTE 09/2022
Bicuspid aortic valve with aortic stenosis and dilated aortic root s/p biologic AVR (27mm Braden) and an aortic tube graft (05/2017)
COPD, no acute wheeze
Former smoker, continued cessation recommended
Subjective:
SOB is better.
Data:
L/RHC Sep 2022:
Right dominant circulation with an 80% lesion in the mid LAD and a chronic total occlusion of the mid RCA all the way to the bifurcation of the RPDA/RPL and a 30-40% mid RPDA lesion, status post prior two-vessel bypass (patent LOGAN to mid LAD,
patent SVG to mid RPDA backfilling the RPL).
Prior aortic valve replacement (#27 Braden magna 2800), well-seated, functioning normally. Prior aortic root replacement (#30 Hemashield ione).
Normal filling pressures (LVEDP = 10 mmHg, PCWP = 10 mmHg at 68.0 kg/149.6 lbs.).
Severely depressed cardiac function (cardiac index = 1.63 L/min/m�).
Severely elevated SVR (1908 dynes/seconds/cm^-5).
TTE Mar 18:
Moderately reduced left ventricular systolic function. Estimated left ventricular ejection fraction is 30-35%.
Stage II diastolic dysfunction suggestive of abnormal relaxation and increased filling pressures.
Normal functioning bioprosthetic aortic valve replacement. Peak/mean gradients are 28/16� mmHg. No aortic regurgitation is seen.
Mild/moderate tricuspid regurgitation. Estimated pulmonary artery pressure of 41 mmHg, assuming a right atrial pressure of 8 mmHg.
Compared to 10/02/22: LVEF has improved from 25-30% to 30-35%.� MR has improved from moderate to mild. TR has improved from moderate to mild/moderate. PASP has �improved from 55 to 41 mmHg.
Physical Exam
Vital Signs/Labs
Vital Signs
Temp Pulse Resp BP Pulse Ox
97.5 F 84 16 124/63 94
03/22/23 07:41 03/22/23 08:25 03/22/23 08:25 03/22/23 07:39 03/22/23 08:31
03/21/23 03/22/23 03/23/23
06:59 06:59 06:59
Actual Weight 77.8 kg
03/20/23 03:22
03/22/23 02:12
Magnesium 2.4 mg/dl (1.6-2.3) H 03/17/23 04:16
03/17/23
04:16
Fnn-I-Zpputecaaji Pept 1740
Physical Exam
Constitutional: No acute distress and Comfortable
EENT: Moist mucous membranes
Cardiovascular: Pedal edema is absent, Rhythm/rate is irregular, JVD present and Systolic murmur present
Respiratory: Respiratory effort normal and Lungs clear to auscul.
GI: Soft, Distention absent and Flat
Neuro/Psych: AO x 3
Data Reviewed
-
Date of Service: March 22, 2023
EKG: Other (Tele: A fib 70s, PVC's)
Labs: Labs Reviewed by me
--- NOTE | 2023-03-22 09:34 | W.PN.HOSP.TC ---
Today's Communication/Plan
-
Off of milrinone drip. Diuretics switched to oral route.
Follow creatinine in AM.
DC plan
Assessment / Plan
Assessment / Plan
pt is a 77 year old male
Acute on chronic HFrEF exacerbation/Cardiomyopathy with ICD-- --On milrinone and diuresis--Admitting weight was 187 which is much higher than his baseline of 160s--Prior echo shows EF of 25 to 30% (09/2022)--patient's weight has decreased since
admission , today 171 lbs.
Improved weight after adding metolazone but not at his baseline.
Continue with Coreg
Right heart cath shows euvolemia with capillary wedge pressure of 11 and cardiac index of 2.1.
Diuretics switched to oral. Milrinone drip stopped.
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
Worsening creatinine noted.
RHC shows euvolemia.
Diuretics switched to oral.
Improving creatinine.
Normocytic anemia--Newly low. Other cell lines are okay-- iron deficient- --no overt external bleeding. S/p 1 unit of PRBC 2/5 with improved hemoglobin and general feeling of improvement.. Hemoglobin remained stable. If heme positive consult GI
due to iron deficiency and patient being on anticoagulation.
Moderate mitral regurgitation/Moderate tricuspid regurgitation/Moderate pulmonary hypertension
Permanent atrial fibrillation--Continue Eliquis
Coronary artery disease status post PCI in 2004/CABG in 2018--Continue statin
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
Thyroid cancer status post thyroidectomy
COPD on 2 L in the night/morning as needed--Continue inhalers
Former smoker with hx of Lung cancer status post right upper lobe lobectomy
Restless leg syndrome--Continue gabapentin
code status --Full code
DVT prophylaxis�Eliquis
Anticipated Discharge: 24 - 48 hours
Subjective/Interval History
-
Date of Service: March 22, 2023
Feels okay. Off of her milrinone drip.
No chest pain or shortness of breath.
Appetite okay.
Objective Data
-
Labs:
Laboratory Results
03/22/23
02:12
Sodium 133 L
Potassium 3.8
Chloride 94 L
Carbon Dioxide 29
BUN 61 H
Creatinine 2.5 H
Glucose 175 H
Calcium 10.5 H
Vital Signs:
Vital Signs
Temp Pulse Resp BP Pulse Ox
97.5 F 84 16 124/63 94
03/22/23 07:41 03/22/23 08:25 03/22/23 08:25 03/22/23 07:39 03/22/23 08:31
I&O
03/21/23 03/22/23 03/23/23
06:59 06:59 06:59
Intake Total 1069.2 / 1069.2 809.2 / 809.2 240 / 240
Output Total 1075 / 1075 625 / 625 300 / 300
Balance -5.8 / -5.8 184.2 / 184.2 -60 / -60
Review of Systems
-
Constitutional: Denies Fever
EENT: Denies Sore Throat
Respiratory: Denies Cough
Neuro: Denies Dizzy
Physical Exam
-
General: No Apparent Distress
HEENT: Moist Mucous Membranes
Respiratory: Clear to Auscultation
Cardiac: Regular Rhythm and S1/S2
Neuro: AO x 3
Psych: Calm; Negative Confused
Data Reviewed
-
Labs: Labs Reviewed by me
--- NOTE | 2023-03-22 11:55 | W.PN.NEPH.PH ---
Today's Communication / Plan
-
Observe
Assessment/Plan
-
Assessment
-RACHELE
-CKD3b (1.7)
-HFrEF 25%, decompensated
-CAD
-Afib
-Anemia
-COPD
-TAVR
Plan
-milrinone to off
-RHC PWCP ~13
-IV lasix now off, now on 80 mg daily although I suspect he will have to be discharged on 80 twice daily
-US shows no ascities
-creatinine improved to 2.5
-weights unchanged and hemodynamically stable
-
-
Date of Service: March 22, 2023
CC / HPI / ROS
-
Chief Complaint:
RACHELE
History of Present Illness:
RACHELE/Cr down to 2.5
Na low 133
BP stable
Review of Systems:
no CP/SOB
weights unchanged
Urine output around 900 cc
Labs
-
Labs:
WBC 8.4 10^3/uL (4.8-10.8) 03/20/23 03:22
RBC 4.33 10^6/uL (4.70-6.10) L 03/20/23 03:22
Hgb 11.0 g/dL (13.0-18.0) L 03/20/23 03:22
Hct 33.1 % (39.0-52.0) L 03/20/23 03:22
Plt Count 267 10^3/uL (130-400) 03/20/23 03:22
Sodium 133 mmol/L (135-145) L 03/22/23 02:12
Potassium 3.8 mmol/L (3.5-5.1) 03/22/23 02:12
Chloride 94 mmol/L (98-107) L 03/22/23 02:12
Carbon Dioxide 29 mmol/L (22-30) 03/22/23 02:12
BUN 61 mg/dl (9-20) H 03/22/23 02:12
Creatinine 2.5 mg/dL (0.7-1.3) H 03/22/23 02:12
eGFR 25.98 03/22/23 02:12
Glucose 175 mg/dl (70-99) H 03/22/23 02:12
Calcium 10.5 mg/dl (8.4-10.2) H 03/22/23 02:12
Cey-P-Rrijsrgbcid Pept 1740 pg/ml 03/17/23 04:16
Albumin 3.4 g/dl (3.5-5.0) L 03/17/23 04:16
Physical Exam
-
Vital Signs:
Vital Signs
Temp Pulse Resp BP Pulse Ox
97.5 F 84 16 124/63 94
03/22/23 07:41 03/22/23 08:25 03/22/23 08:25 03/22/23 07:39 03/22/23 08:31
Cardiovascular:: Regular rate and rhythm
Respiratory:: Bilateral: CTA
Lung Excursion:: Normal
Abdomen:: Distended
Bowel Sounds:: Normal
Extremity Edema:: None: Bilateral:
Rodriguez Catheter: No
[2023-03-22] MEDS: MAG-TAB SR 84 MG PO (16:45)
[2023-03-22] MEDS: TYLENOL 650 MG PO (18:02)
--- NOTE | 2023-03-22 18:20 | PTCARENOTE ---
Milrinone infusion off @08:40. Telemetry shows atrial flutter at a rate @65-70's with frequent single PVC's, SBP 98-122. Pt OOB to chair for one hour today, encourage to use a walker instead of his 'sticks' for better stability and safety. Tremors
improved today, pt able to feed himself without problem.
[2023-03-22] MEDS: FLUSH (NSS) 1 FLUSH IV (20:25)
[2023-03-22] MEDS: NEURONTIN 600 MG PO (22:08)
[2023-03-22] MEDS: LIPITOR 40 MG PO (22:08)
--- NOTE | 2023-03-22 23:45 | PTCARENOTE ---
Received patient at change of shift this PM. AAOx3. He is blind in his left eye with some impaired vision in the right eye. VSS. He is A-Fib/Flutter on the monitor. HR in the 60s-70s. INT patent. He denies chest pain or discomfort. Plan of care
discussed. He is receptive to teaching and motivated. We discussed his medications and he has no further questions about these at this time. He denies pain and appears comfortable in bed. He understands to use his call erazo for assistance with
ambulation and other needs. Will continue to monitor.
[2023-03-23] VITALS (8 sets, daily range): BP systolic 107–124; BP diastolic 52–77; BMI 23.3
[2023-03-23 04:43] LABS: Blood Urea Nitrogen 55 mg/dl (9-20); Calcium 10.7 mg/dl (8.4-10.2); Carbon Dioxide 29 mmol/L (22-30); Chloride 95 mmol/L (98-107); Estimated Creatinine Clearance 29 ml/min; Glucose 113 mg/dl (70-99); Potassium 3.9 mmol/L (3.5-5.1); Sodium 135 mmol/L (135-145); eGFR 27.28
--- NOTE | 2023-03-23 06:30 | PTCARENOTE ---
Patient with some confusion this AM. While sitting at the nurses station, this RN and PCT found patient up at the door of his room. He stated, '...someone came into my room and told me that I needed to come out here.' The patient could state his
name and , but could not name the location, month, or year. When asked about his , he could not recall her name, Kayleigh. He stated, 'I'm totally confused this morning.' This RN and PCT got patient back into bed. VS were stable and appropriate.
[facility] Ilsa HUTCHINSON.
[2023-03-23] MEDS: XOPENEX HFA 45 MCG INHALER 2 PUFF INH ×2 (07:26→18:01)
--- NOTE | 2023-03-23 08:36 | W.PN.CD ---
Today's Communication / Plan
-
cont lasix 80mg PO daily
milrinone off since 03/22
observe on current regimen; discharge planning for tomorrow if stable
Impression / Plan
-
Impression: 77M with ICM EF 30% admitted with HFrEF
Plan:
ICM, HFrEF (LVEF 30-35%), acute on chronic decompensation, severe, with cardiorenal syndrome requiring close monitoring of labs and tele
-Stage C, NYHA Class III-IV
-GDMT is limited in the setting of CKD (ALYSSA/ARB/ARNi/MRA) and hypotension. Medtronic ICD in place
-RHC 03/21: PCW 11 at 77.6kg
-cont lasix 80mg PO daily
-milronone off since 03/22
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
-Volume overloaded (primarily abdominal distention). Improved.
-Nephrology now following; appreciate input.
CAD
-Inferior RI with PCI 2004 & CABG 2017 (LOGAN-LAD, VG-PDA)
-Cardiac catheterization - [place] vessel CAD with patent grafts - 10/07/22
-Stable without chest pain.
Permanent atrial fibrillation
-Remains rate controlled: continue coreg
-Oral Anticoagulation: Eliquis 5mg BID
-[id number]: score 4 (Heart failure, age 75 or more, Vascular disease)
Brief NSVT
-cont coreg
-ICD in place
Anemia - improved
WCT (2022), continue beta jade
Moderate mitral regurgitation, by TTE 09/2022
Bicuspid aortic valve with aortic stenosis and dilated aortic root s/p biologic AVR (27mm Braden) and an aortic tube graft (05/2017)
COPD, no acute wheeze
Former smoker, continued cessation recommended
Subjective:
SOB is better. Abdomen not as tight.
Data:
L/RHC Sep 2022:
Right dominant circulation with an 80% lesion in the mid LAD and a chronic total occlusion of the mid RCA all the way to the bifurcation of the RPDA/RPL and a 30-40% mid RPDA lesion, status post prior two-vessel bypass (patent LOGAN to mid LAD,
patent SVG to mid RPDA backfilling the RPL).
Prior aortic valve replacement (#27 Braden magna 2800), well-seated, functioning normally. Prior aortic root replacement (#30 [place]).
Normal filling pressures (LVEDP = 10 mmHg, PCWP = 10 mmHg at 68.0 kg/149.6 lbs.).
Severely depressed cardiac function (cardiac index = 1.63 L/min/m�).
Severely elevated SVR (1908 dynes/seconds/cm^-5).
TTE Mar 18:
Moderately reduced left ventricular systolic function. Estimated left ventricular ejection fraction is 30-35%.
Stage II diastolic dysfunction suggestive of abnormal relaxation and increased filling pressures.
Normal functioning bioprosthetic aortic valve replacement. Peak/mean gradients are 28/16� mmHg. No aortic regurgitation is seen.
Mild/moderate tricuspid regurgitation. Estimated pulmonary artery pressure of 41 mmHg, assuming a right atrial pressure of 8 mmHg.
Compared to 10/02/22: LVEF has improved from 25-30% to 30-35%.� MR has improved from moderate to mild. TR has improved from moderate to mild/moderate. PASP has �improved from 55 to 41 mmHg.
Physical Exam
Vital Signs/Labs
Vital Signs
Temp Pulse Resp BP Pulse Ox
98.0 F 65 20 107/77 96
03/23/23 06:51 03/23/23 08:00 03/23/23 06:51 03/23/23 06:51 03/23/23 06:51
03/22/23 03/23/23 03/24/23
06:59 06:59 06:59
Actual Weight 79 kg 77.9 kg
03/20/23 03:22
03/23/23 04:01
Magnesium 2.4 mg/dl (1.6-2.3) H 03/17/23 04:16
03/17/23
04:16
Tpy-I-Ddvzgnpuvcx Pept 1740
Physical Exam
Constitutional: No acute distress and Comfortable
EENT: Moist mucous membranes
Cardiovascular: Rhythm & rate is regular, Pedal edema is absent, Systolic murmur absent and JVD present
Respiratory: Respiratory effort normal, Lungs clear to auscul. and Wheeze Absent
GI: Soft, Distention absent and Flat
Neuro/Psych: AO x 3
Data Reviewed
-
Date of Service: March 23, 2023
EKG: Other (Tele: A fib 60s, brief NSVT)
Labs: Labs Reviewed by me
[2023-03-23] MEDS: KCL 20 MEQ PO ×2 (08:38→19:36)
[2023-03-23] MEDS: ELIQUIS 5 MG PO ×2 (08:38→16:21)
[2023-03-23] MEDS: COREG 6.25 MG PO ×2 (08:38→19:36)
[2023-03-23] MEDS: LASIX 80 MG PO (08:38)
[2023-03-23] MEDS: NEURONTIN 300 MG PO (08:38)
[2023-03-23] MEDS: VITAMIN B-6 50 MG PO (08:38)
[2023-03-23] MEDS: SENOKOT-S PO (08:39)
[2023-03-23] MEDS: FERRLECIT 110 MG IV (09:36)
[2023-03-23] MEDS: TYLENOL 650 MG PO ×2 (09:45→21:34)
--- NOTE | 2023-03-23 10:22 | W.PN.NEPH.PH ---
Today's Communication / Plan
-
maintain current lasix dose
Assessment/Plan
-
Assessment
-RACHELE
-CKD3b (1.7)
-HFrEF 25%, decompensated
-CAD
-Afib
-Anemia
-COPD
-TAVR
Plan
-milrinone to off
-RHC PWCP ~13
-IV lasix now off, now on 80 mg daily , may need to increase to BID if weights increase >3lbs as outpatient
-US shows no ascities
-creatinine improved to 2.4, nonoliguric
-weights dwon and hemodynamically stable
-very confused and acting erratic this am
-
-
Date of Service: March 23, 2023
CC / HPI / ROS
-
Chief Complaint:
RACHELE
History of Present Illness:
RACHELE/Cr down to 2.4
Na up to 135
BP stable
Review of Systems:
no CP/SOB
weights down
Urine output around 1100 cc
Labs
-
Labs:
WBC 8.4 10^3/uL (4.8-10.8) 03/20/23 03:22
RBC 4.33 10^6/uL (4.70-6.10) L 03/20/23 03:22
Hgb 11.0 g/dL (13.0-18.0) L 03/20/23 03:22
Hct 33.1 % (39.0-52.0) L 03/20/23 03:22
Plt Count 267 10^3/uL (130-400) 03/20/23 03:22
Sodium 135 mmol/L (135-145) 03/23/23 04:01
Potassium 3.9 mmol/L (3.5-5.1) 03/23/23 04:01
Chloride 95 mmol/L (98-107) L 03/23/23 04:01
Carbon Dioxide 29 mmol/L (22-30) 03/23/23 04:01
BUN 55 mg/dl (9-20) H 03/23/23 04:01
Creatinine 2.4 mg/dL (0.7-1.3) H 03/23/23 04:01
eGFR 27.28 03/23/23 04:01
Glucose 113 mg/dl (70-99) H 03/23/23 04:01
Calcium 10.7 mg/dl (8.4-10.2) H 03/23/23 04:01
Yxl-T-Mwtqmobkeab Pept 1740 pg/ml 03/17/23 04:16
Albumin 3.4 g/dl (3.5-5.0) L 03/17/23 04:16
Physical Exam
-
Vital Signs:
Vital Signs
Temp Pulse Resp BP Pulse Ox
98.0 F 65 16 107/77 96
03/23/23 06:51 03/23/23 08:00 03/23/23 07:30 03/23/23 06:51 03/23/23 08:42
Cardiovascular:: Regular rate and rhythm
Respiratory:: Bilateral: Coarse
Lung Excursion:: Normal
Abdomen:: Nontender and Soft
Bowel Sounds:: Normal
Extremity Edema:: None: Bilateral:
Rodriguez Catheter: No
--- NOTE | 2023-03-23 10:55 | W.PN.HOSP.TC ---
Today's Communication/Plan
-
dc planning
Assessment / Plan
Assessment / Plan
pt is a 77 year old male
Acute on chronic HFrEF exacerbation/Cardiomyopathy with ICD-- --On milrinone and diuresis--Admitting weight was 187 which is much higher than his baseline of 160s--Prior echo shows EF of 25 to 30% (09/2022)--patient's weight has decreased since
admission , today 171 lbs.
Improved weight after adding metolazone but not at his baseline.
Continue with Coreg
Right heart cath shows euvolemia with capillary wedge pressure of 11 and cardiac index of 2.1.
Diuretics switched to oral. Milrinone drip stopped.
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
Worsening creatinine noted.
RHC shows euvolemia.
Diuretics switched to oral.
Improving creatinine.
Normocytic anemia--Newly low. Other cell lines are okay-- iron deficient- --no overt external bleeding. S/p 1 unit of PRBC 2/5 with improved hemoglobin and general feeling of improvement.. Hemoglobin remained stable. If heme positive consult GI
due to iron deficiency and patient being on anticoagulation.
Moderate mitral regurgitation/Moderate tricuspid regurgitation/Moderate pulmonary hypertension
Permanent atrial fibrillation--Continue Eliquis
Coronary artery disease status post PCI in 2004/CABG in 2018--Continue statin
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
Thyroid cancer status post thyroidectomy
COPD on 2 L in the night/morning as needed--Continue inhalers
Former smoker with hx of Lung cancer status post right upper lobe lobectomy
Restless leg syndrome--Continue gabapentin
code status --Full code
DVT prophylaxis�Eliquis
DC home when ok from cardiology standpoint -likely in am if stable
Anticipated Discharge: Within 24 hours
Subjective/Interval History
-
Date of Service: March 23, 2023
Transient confusion this morning when he woke up about his whereabouts but that quickly cleared.
Is alert and oriented.
Voices no specific complaints.
No headache, visual symptoms or speech disturbance. Denies any weakness in the limbs.
Objective Data
-
Labs:
Laboratory Results
03/23/23
04:01
Sodium 135
Potassium 3.9
Chloride 95 L
Carbon Dioxide 29
BUN 55 H
Creatinine 2.4 H
Glucose 113 H
Calcium 10.7 H
Vital Signs:
Vital Signs
Temp Pulse Resp BP Pulse Ox
98.0 F 65 16 107/77 96
03/23/23 06:51 03/23/23 08:00 03/23/23 07:30 03/23/23 06:51 03/23/23 08:42
I&O
03/22/23 03/23/23 03/24/23
06:59 06:59 06:59
Intake Total 809.2 / 809.2 960 / 960 290 / 290
Output Total 625 / 625 1410 / 1410
Balance 184.2 / 184.2 -450 / -450 290 / 290
Review of Systems
-
Constitutional: Denies Fever
EENT: Denies Sore Throat
Respiratory: Denies Trouble Breathing
Cardiac: Denies Chest Pain
Abdomen/GI: Denies Abdominal Pain, Nausea or Vomiting
Neuro: Denies Dizzy
Physical Exam
-
Respiratory: Clear to Auscultation
Cardiac: Regular Rhythm and S1/S2
Neuro: AO x 3 and No Motor Deficits
Psych: Calm; Negative Confused or Agitated
Data Reviewed
-
Labs: Labs Reviewed by me
[2023-03-23] MEDS: MAG-TAB SR 84 MG PO (16:21)
--- NOTE | 2023-03-23 17:57 | PTCARENOTE ---
Pt with some confusion as to his whereabouts this morning but he is well aware of it and states it has happened before. Pt oriented X 3 all day but discouraged about his tremors which occur occasionally. Pt OOB and walked in halls once with RN @150
feet using the walker. Telemetry shows atrial flutter with frequent single PVC's at a rate @65-70's.
[2023-03-23] MEDS: SENOKOT-S 1 TABLET PO (19:36)
[2023-03-23] MEDS: LIPITOR 40 MG PO (21:34)
[2023-03-23] MEDS: NEURONTIN 600 MG PO (21:35)
--- NOTE | 2023-03-23 21:45 | PTCARENOTE ---
Pt rec'd at change of shift awake,alert aflutter on telemetry. Lungs clear no cough noted. Pt assisted to bsc passed large formed bm. resting at present with call erazo within reach.
[2023-03-24] VITALS (7 sets, daily range): BP systolic 114–131; BP diastolic 49–80; PULSE 66; O2SAT 96; BMI 23.3
[2023-03-24 03:18] LABS: Blood Urea Nitrogen 56 mg/dl (9-20); Calcium 10.4 mg/dl (8.4-10.2); Carbon Dioxide 28 mmol/L (22-30); Chloride 96 mmol/L (98-107); Estimated Creatinine Clearance 29 ml/min; Glucose 127 mg/dl (70-99); Potassium 3.6 mmol/L (3.5-5.1); Sodium 136 mmol/L (135-145); eGFR 27.28
--- NOTE | 2023-03-24 08:51 | W.PN.CD ---
Today's Communication / Plan
-
cont lasix 80mg PO daily, and Kcl 20 mEq bid
discharge planning
BMP next week
we will arrange for follow up with us
please call us back with additional questions
Impression / Plan
-
Impression: 77M with ICM EF 30% admitted with HFrEF
Plan:
ICM, HFrEF (LVEF 30-35%), acute on chronic decompensation, severe, with cardiorenal syndrome requiring close monitoring of labs and tele
-Stage C, NYHA Class III-IV
-GDMT is limited in the setting of CKD (ALYSSA/ARB/ARNi/MRA) and hypotension. Medtronic ICD in place
-RHC 03/21: PCW 11 at 77.6kg
-cont lasix 80mg PO daily, and Kcl 20 mEq bid
-milrinone has been off since 03/22
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
-Volume overloaded (primarily abdominal distention). Improved.
CAD
-Inferior [place] with PCI 2004 & CABG 2017 (LOGAN-LAD, VG-PDA)
-Cardiac catheterization - [place] vessel CAD with patent grafts - 10/07/22
-Stable without chest pain.
Permanent atrial fibrillation
-Remains rate controlled: continue coreg
-Oral Anticoagulation: Eliquis 5mg BID
-[id number]: score 4 (Heart failure, age 75 or more, Vascular disease)
Brief NSVT
-cont coreg
-ICD in place
Anemia - improved
WCT (2022), continue beta jade
Moderate mitral regurgitation, by TTE 09/2022
Bicuspid aortic valve with aortic stenosis and dilated aortic root s/p biologic AVR (27mm Braden) and an aortic tube graft (05/2017)
COPD, no acute wheeze
Former smoker, continued cessation recommended
Subjective:
He feels much better since admission.
Data:
L/RHC Sep 2022:
Right dominant circulation with an 80% lesion in the mid LAD and a chronic total occlusion of the mid RCA all the way to the bifurcation of the RPDA/RPL and a 30-40% mid RPDA lesion, status post prior two-vessel bypass (patent LOGAN to mid LAD,
patent SVG to mid RPDA backfilling the RPL).
Prior aortic valve replacement (#27 Braden magna 2800), well-seated, functioning normally. Prior aortic root replacement (#30 [employer]).
Normal filling pressures (LVEDP = 10 mmHg, PCWP = 10 mmHg at 68.0 kg/149.6 lbs.).
Severely depressed cardiac function (cardiac index = 1.63 L/min/m�).
Severely elevated SVR (1908 dynes/seconds/cm^-5).
TTE Mar 18:
Moderately reduced left ventricular systolic function. Estimated left ventricular ejection fraction is 30-35%.
Stage II diastolic dysfunction suggestive of abnormal relaxation and increased filling pressures.
Normal functioning bioprosthetic aortic valve replacement. Peak/mean gradients are 28/16� mmHg. No aortic regurgitation is seen.
Mild/moderate tricuspid regurgitation. Estimated pulmonary artery pressure of 41 mmHg, assuming a right atrial pressure of 8 mmHg.
Compared to 10/02/22: LVEF has improved from 25-30% to 30-35%.� MR has improved from moderate to mild. TR has improved from moderate to mild/moderate. PASP has �improved from 55 to 41 mmHg.
Physical Exam
Vital Signs/Labs
Vital Signs
Temp Pulse Resp BP Pulse Ox
98.2 F 62 22 118/74 93
03/24/23 06:56 03/24/23 02:48 03/24/23 06:56 03/24/23 02:48 03/24/23 06:56
03/23/23 03/24/23 03/25/23
06:59 06:59 06:59
Actual Weight 77.9 kg 78 kg
03/20/23 03:22
03/24/23 02:53
Magnesium 2.4 mg/dl (1.6-2.3) H 03/17/23 04:16
03/17/23
04:16
Com-B-Hrjozkqxdwm Pept 1740
Physical Exam
Constitutional: No acute distress and Comfortable
EENT: Moist mucous membranes
Cardiovascular: Pedal edema is absent, JVD pressure is normal, Systolic murmur absent and Rhythm/rate is irregular
Respiratory: Respiratory effort normal, Lungs clear to auscul. and Wheeze Absent
GI: Soft, Distention absent and Flat
Neuro/Psych: AO x 3
Data Reviewed
-
Date of Service: March 24, 2023
EKG: Other (Tele: A fib 60s, PVC's)
Labs: Labs Reviewed by me
[2023-03-24] MEDS: ELIQUIS 5 MG PO ×2 (08:56→16:51)
[2023-03-24] MEDS: COREG 6.25 MG PO ×2 (08:56→20:32)
[2023-03-24] MEDS: LASIX 80 MG PO (08:57)
[2023-03-24] MEDS: NEURONTIN 300 MG PO (08:57)
[2023-03-24] MEDS: VITAMIN B-6 50 MG PO (08:57)
[2023-03-24] MEDS: SENOKOT-S 1 TABLET PO ×2 (08:57→20:32)
[2023-03-24] MEDS: KCL 20 MEQ PO ×2 (08:57→20:32)
[2023-03-24] MEDS: TYLENOL 650 MG PO ×2 (08:58→16:51)
[2023-03-24] MEDS: XOPENEX HFA 45 MCG INHALER 2 PUFF INH ×2 (09:11→20:02)
--- NOTE | 2023-03-24 09:56 | PTCARENOTE ---
Pt direct admit for Tikosyn loading, A,A+Ox3. EKG done, IV started L forearm #22, labs sent.
--- NOTE | 2023-03-24 10:18 | W.PN.HOSP.TC ---
Today's Communication/Plan
-
consult neuro
Assessment / Plan
Assessment / Plan
pt is a 77 year old male
Acute on chronic HFrEF exacerbation/Cardiomyopathy with ICD--was on milrinone and diuresis--Admitting weight was 187 which was much higher than his baseline of 160s--Prior echo shows EF of 25 to 30% (09/2022)--patient's weight has decreased since
admission--right heart cardiac cath says euvolemic--cont coerg, lasix, Kcl per cards
RACHELE on CKD 3B (baseline approx 1.8) concerning for cardiorenal syndrome (with creat 2.8 down to 2.4 likely new baseline)--Monitor with diuresis/milrinone-- metolazone given, naproxen--apprec renal--diuresis as able--cont milrinone--Worsening
creatinine noted--RHC shows euvolemia--Diuretics switched to oral.
Normocytic anemia--Newly low. Other cell lines are okay-- iron deficient- --no overt external bleeding. S/p 1 unit of PRBC 2/5 with improved hemoglobin and general feeling of improvement.. Hemoglobin remained stable. If heme positive consult GI
due to iron deficiency and patient being on anticoagulation.
Moderate mitral regurgitation/Moderate tricuspid regurgitation/Moderate pulmonary hypertension
Permanent atrial fibrillation--Continue Eliquis
Coronary artery disease status post PCI in 2004/CABG in 2018--Continue statin
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
Thyroid cancer status post thyroidectomy
COPD on 2 L in the night/morning as needed--Continue inhalers
Former smoker with hx of Lung cancer status post right upper lobe lobectomy
Restless leg syndrome--Continue gabapentin
code status --Full code
DVT prophylaxis�Eliquis
confusion, tremors, etc--new per pt--no hx of dementia that I can see--consult neuro--possibly early cognitive impairment from class III-IV CHF (was on milrinone)--unfortunately cannot d/c until neuro sees
Anticipated Discharge: Within 24 hours
Subjective/Interval History
-
Date of Service: March 24, 2023
pt says he wakes up at night and doesn't know where he is, pulls out IVs and there is blood everywhere, says he has been telling docs about this--also with bilateral hand tremors
he says his is scared to .....
Objective Data
-
Labs:
Laboratory Results
03/24/23
02:53
Sodium 136
Potassium 3.6
Chloride 96 L
Carbon Dioxide 28
BUN 56 H
Creatinine 2.4 H
Glucose 127 H
Calcium 10.4 H
Vital Signs:
max temp for 24 hours
03/24/23
06:56
Temp 98.2 F
Vital Signs
Temp Pulse Resp BP Pulse Ox
98.2 F 63 23 117/66 92
03/24/23 06:56 03/24/23 10:00 03/24/23 10:00 03/24/23 06:51 03/24/23 09:11
I&O
03/23/23 03/24/23 03/25/23
06:59 06:59 06:59
Intake Total 960 / 960 630 / 630
Output Total 1410 / 1410 1075 / 1075 225 / 225
Balance -450 / -450 -445 / -445 -225 / -225
Review of Systems
-
All other systems: Reviewed and negative
Neuro: Reports Tremors (bilateral hands)
Psych: Reports Other (confusion, not knowing where he is)
Physical Exam
-
General: Well Developed, Well Nourished and No Apparent Distress
HEENT: Normocephalic and Atraumatic
Respiratory: Clear to Auscultation; Negative Wheezes or Rhonchi
Cardiac: Regular Rhythm and S1/S2; Negative Murmur
GI: Soft, Nontender, Nondistended and Normal Bowel Sounds
Musculoskeletal: No Clubbing, No Cyanosis and No Edema
Skin: Warm
Neuro: Awake
Psych: Calm
--- NOTE | 2023-03-24 10:40 | CON.NEURO ---
Addendum entered and electronically signed by Miriam Muñoz MD 03/24/23 12:53:
-Delirium precautions
-Avoid medications, known to cause myoclonus(Gabapentin)
Original Note:
Consultation
Order
CC: none
HPI: This is a 77-year-old man who presented to [facility] on 03/14/2023 with cardiorenal syndrome. Neurology consultation was requested for evaluation and management of fluctuating encephalopathy.
According to EMR patient has been intermittently agitated and restless mostly in the evening during hospitalization. No reports of weakness, sensory or visual deficits.
Mr. 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
PDMP:no recently prescribed meds
Labs: vit B12 346.
Head(08/23/2022)-atrophy, L [employer] chronic infarct
PMH: L [employer] stroke(2021), lung/thyroid CA, CAD, HFrEF (LVEF 25-30%) perm A-Fib, CKD, n, left eye blindness(traumatic), nephrolithiasis
PSH: PPM, appendectomy, CABG, PTCIs, tonsillectomy, Bladder repair, left inguinal hernia repair, Left upper lobectomy, thyroidectomy
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
FH:noncontributory
All: PNC, codeine
ROS:Constitutional: Negative. Negative for chills, fever and unexpected weight change.
HENT: Positive for hearing impairment
Eyes: Positive for visual impairment
Respiratory: Negative for cough, choking and shortness of breath.
Cardiovascular: Positive for dyspnea on exertion
Gastrointestinal: Negative for abdominal pain and vomiting.
Endocrine: Negative. Negative for cold intolerance.
Musculoskeletal: Positive for intermittent left leg with
Skin: Negative for rash.
Allergic/Immunologic: Negative. Negative for immunocompromised state.
Neurological: Positive for abnormal movements, intermittent confusion, imbalance
General: Well developed. In no acute distress.
Cardio: Regular rate and rhythm without murmur. Extremities are without cyanosis or edema.
Neuro:
Mental Status: Alert, oriented to person, place, and date. Normal attention and recall. Good fund of knowledge. Follows complex requests across the midline. Comprehension, naming, and repetition intact.
Cranial Nerves: L eye opacification. OD 3mm, reactive. EOMs full. R hemianopsia on liliam R. R ptosis. No nystagmus. V1-V3 intact to light touch and pinprick bilaterally, symmetric. Face symmetric. Impaired hearing AU. The palate elevated well.
SCMs and traps 5/5. Tongue midline. Edentulos dysarthria.
Motor: Increased motor tone right greater than left. No pronator or arm drift. Strength 5/5 throughout no clonus.
Reflexes: 3+ throughout the upper extremities and knees. Plantar responses flexor bilaterally.
Sensory: Reduced vibration at the toes
Coordination: R>L action hand tremor. BL UE myoclonus. No dysmetria
Gait: deferred
Assessment and Plan:
I. Encephalopathy(vascular
II. Parkinsonism
III. Metabolic myoclonus
IV. 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
V. 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
-Fal precautions;
-Please check ammonia level, TFTs,
-Continue Eliquis 5 mg BID
-CT head wo contrast to rule out basal ganglia abnormalities, ventriculomegaly
-PT
I personally reviewed all radiology and labs along with past medical records pertinent to current medical problems.
Thank you for allowing us to participate in the care of this patient. We will continue to follow. Please do not hesitate to contact us with any questions or concerns.
Subjective/Objective
Subjective Data
Date of Service: March 24, 2023
Objective Data
Vital Signs
Temp Pulse Resp BP Pulse Ox
36.8 C 63 23 117/66 92
03/24/23 06:56 03/24/23 10:00 03/24/23 10:00 03/24/23 06:51 03/24/23 09:11
Lab Results
03/20/23 03:22
03/24/23 02:53
Sodium 136 mmol/L (135-145) 03/24/23 02:53
Potassium 3.6 mmol/L (3.5-5.1) 03/24/23 02:53
BUN 56 mg/dl (9-20) H 03/24/23 02:53
Glucose 127 mg/dl (70-99) H 03/24/23 02:53
Calcium 10.4 mg/dl (8.4-10.2) H 03/24/23 02:53
Pwx-Y-Vhsrzegpgil Pept 1740 pg/ml 03/17/23 04:16
Vitamin B12 346 pg/ml (239-931) 03/16/23 02:39
Patient Allergies
codeine [Codeine] Allergy (Verified 03/14/23 16:36)
nausea vomiting
Penicillins Allergy (Verified 03/14/23 16:36)
Hives, swelling, tolerated ceftriaxone Feb 2020
Modified Cassidy Score (MRS)
-
MRS Score:
Medications
-
Active Medications
Generic Name Dose Route Start Last Admin
Trade Name Freq PRN Reason Stop Dose Admin
Acetaminophen 650 mg 03/18/23 13:01 03/24/23 08:58
Acetaminophen 325 Mg Tablet PO 04/15/23 13:00 650 mg
Q4HPRN PRN Administration
mild pain /fever >100.4
Apixaban 5 mg 03/15/23 08:00 03/24/23 08:56
Apixaban (Eliquis) 5 Mg Tablet PO 04/12/23 07:59 5 mg
BID@0800,1600 PIETRO Administration
Atorvastatin Calcium 40 mg 03/14/23 22:00 03/23/23 21:34
Atorvastatin (Lipitor) 40 Mg Tablet PO 04/11/23 21:59 40 mg
HS PIETRO Administration
Carvedilol 6.25 mg 03/14/23 20:44 03/24/23 08:56
Carvedilol 6.25 Mg Tablet PO 04/11/23 20:43 6.25 mg
Q12 PIETRO Administration
Furosemide 80 mg 03/22/23 08:00 03/24/23 08:57
Furosemide 80 Mg Tablet PO 04/19/23 07:59 80 mg
DAILY PIETRO Administration
Gabapentin 300 mg 03/15/23 08:00 03/24/23 08:57
Gabapentin 300 Mg Capsule PO 04/12/23 07:59 300 mg
DAILY PIETRO Administration
Gabapentin 600 mg 03/14/23 22:05 03/23/23 21:35
Gabapentin 300 Mg Capsule PO 04/11/23 22:04 600 mg
HS PIETRO Administration
Levalbuterol 2 puff 03/14/23 20:44 03/24/23 09:11
Levalbuterol 45 Mcg Inhaler INH 04/11/23 20:43 2 puff
R BID PIETRO Administration
Protocol
Magnesium 84 mg 03/15/23 18:00 03/23/23 16:21
Magnesium Lactate 84 Mg Tablet PO 04/12/23 17:59 84 mg
QPM PIETRO Administration
Magnesium Hydroxide 30 ml 03/21/23 08:49
Milk Of Magnesia 30 Ml Cup PO 04/18/23 08:48
HSPRN PRN
Constipation
Potassium Chloride 20 meq 03/20/23 20:00 03/24/23 08:57
Potassium Chloride 20 Meq Extended Release Tablet PO 04/17/23 19:59 20 meq
BID PIETRO Administration
Pyridoxine HCl 50 mg 03/15/23 08:00 03/24/23 08:57
Pyridoxine 50 Mg Tablet PO 04/12/23 07:59 50 mg
DAILY PIETRO Administration
Senna/Docusate Sodium 1 tablet 03/19/23 08:00 03/24/23 08:57
Docusate W/Senna (Tsering-Colace) Tablet PO 04/16/23 07:59 1 tablet
BID PIETRO Administration
Sodium Chloride 0 flush 03/14/23 21:00 03/22/23 20:25
Sodium Chloride 0.9% (Flush) Syringe IV 04/11/23 20:59 1 flush
PER PROTOCOL PIETRO Administration
Home Medications
Medication Instructions Recorded
atorvastatin 40 mg tablet 40 mg PO HS High cholesterol 04/25/22
apixaban 5 mg tablet (Eliquis) 5 mg PO BID@0800,1600 Blood clot 10/10/22
prevention/tx #0 tabs
carvedilol 6.25 mg tablet (Coreg) 6.25 mg PO Q12H blood pressure / 03/14/23
heart condition
furosemide 40 mg tablet 40 mg PO BID Fluid 03/14/23
retention/Swelling
gabapentin 300 mg capsule 300 mg PO DAILY Pain 03/14/23
gabapentin 300 mg capsule 600 mg PO HS Pain 03/14/23
levalbuterol tartrate 45 2 inh inhalation R BID 03/14/23
mcg/actuation aerosol inhaler Lung/Breathing Issues
(Xopenex HFA)
magnesium oxide 400 mg PO QPM Supplement 03/14/23
metolazone 2.5 mg tablet 2.5 mg PO MOWEFR Fluid 03/14/23
Retention/Swelling
naproxen sodium 220 mg tablet 440 mg PO DAILYPRN PRN mild pain 03/14/23
(Aleve)
potassium chloride 20 mEq 20 meq PO DAILY Electrolyte 03/14/23
tablet,extended release Repletion
pyridoxine (vitamin B6) 500 mg 500 mg PO DAILY Supplement 03/14/23
tablet
Vital Signs and Labs
-
Vital Signs and Labs:
Vital Signs
Temp Pulse Resp BP Pulse Ox
36.8 C 63 23 117/66 92
03/24/23 06:56 03/24/23 10:00 03/24/23 10:00 03/24/23 06:51 03/24/23 09:11
Lab Results
03/20/23 03:22
03/24/23 02:53
Sodium 136 mmol/L (135-145) 03/24/23 02:53
Potassium 3.6 mmol/L (3.5-5.1) 03/24/23 02:53
BUN 56 mg/dl (9-20) H 03/24/23 02:53
Glucose 127 mg/dl (70-99) H 03/24/23 02:53
Calcium 10.4 mg/dl (8.4-10.2) H 03/24/23 02:53
Xjo-Z-Abprtvojovj Pept 1740 pg/ml 03/17/23 04:16
Vitamin B12 346 pg/ml (239-931) 03/16/23 02:39
Home Medications
-
Home Medications
atorvastatin 40 mg tablet 40 mg PO HS High cholesterol 04/25/22
apixaban 5 mg tablet (Eliquis) 5 mg PO BID@0800,1600 Blood clot prevention/tx #0 tabs 10/10/22
carvedilol 6.25 mg tablet (Coreg) 6.25 mg PO Q12H blood pressure / heart condition 03/14/23
furosemide 40 mg tablet 40 mg PO BID Fluid retention/Swelling 03/14/23
gabapentin 300 mg capsule 300 mg PO DAILY Pain 03/14/23
gabapentin 300 mg capsule 600 mg PO HS Pain 03/14/23
levalbuterol tartrate 45 mcg/actuation aerosol inhaler (Xopenex HFA) 2 inh inhalation R BID Lung/Breathing Issues 03/14/23
magnesium oxide 400 mg PO QPM Supplement 03/14/23
metolazone 2.5 mg tablet 2.5 mg PO MOWEFR Fluid Retention/Swelling 03/14/23
naproxen sodium 220 mg tablet (Aleve) 440 mg PO DAILYPRN PRN mild pain 03/14/23
potassium chloride 20 mEq tablet,extended release 20 meq PO DAILY Electrolyte Repletion 03/14/23
pyridoxine (vitamin B6) 500 mg tablet 500 mg PO DAILY Supplement 03/14/23
Medications
-
Medications:
Generic Name Dose Route Start Last Admin
Trade Name Freq PRN Reason Stop Dose Admin
Acetaminophen 650 mg 03/18/23 13:01 03/24/23 08:58
Acetaminophen 325 Mg Tablet PO 04/15/23 13:00 650 mg
Q4HPRN PRN Administration
mild pain /fever >100.4
Apixaban 5 mg 03/15/23 08:00 03/24/23 08:56
Apixaban (Eliquis) 5 Mg Tablet PO 04/12/23 07:59 5 mg
BID@0800,1600 PIETRO Administration
Atorvastatin Calcium 40 mg 03/14/23 22:00 03/23/23 21:34
Atorvastatin (Lipitor) 40 Mg Tablet PO 04/11/23 21:59 40 mg
HS PIETRO Administration
Carvedilol 6.25 mg 03/14/23 20:44 03/24/23 08:56
Carvedilol 6.25 Mg Tablet PO 04/11/23 20:43 6.25 mg
Q12 PIETRO Administration
Furosemide 80 mg 03/22/23 08:00 03/24/23 08:57
Furosemide 80 Mg Tablet PO 04/19/23 07:59 80 mg
DAILY PIETRO Administration
Gabapentin 300 mg 03/15/23 08:00 03/24/23 08:57
Gabapentin 300 Mg Capsule PO 04/12/23 07:59 300 mg
DAILY PIETRO Administration
Gabapentin 600 mg 03/14/23 22:05 03/23/23 21:35
Gabapentin 300 Mg Capsule PO 04/11/23 22:04 600 mg
HS PIETRO Administration
Levalbuterol 2 puff 03/14/23 20:44 03/24/23 09:11
Levalbuterol 45 Mcg Inhaler INH 04/11/23 20:43 2 puff
R BID PIETRO Administration
Protocol
Magnesium 84 mg 03/15/23 18:00 03/23/23 16:21
Magnesium Lactate 84 Mg Tablet PO 04/12/23 17:59 84 mg
QPM PIETRO Administration
Magnesium Hydroxide 30 ml 03/21/23 08:49
Milk Of Magnesia 30 Ml Cup PO 04/18/23 08:48
HSPRN PRN
Constipation
Potassium Chloride 20 meq 03/20/23 20:00 03/24/23 08:57
Potassium Chloride 20 Meq Extended Release Tablet PO 04/17/23 19:59 20 meq
BID PIETRO Administration
Pyridoxine HCl 50 mg 03/15/23 08:00 03/24/23 08:57
Pyridoxine 50 Mg Tablet PO 04/12/23 07:59 50 mg
DAILY PIETRO Administration
Senna/Docusate Sodium 1 tablet 03/19/23 08:00 03/24/23 08:57
Docusate W/Senna (Tsering-Colace) Tablet PO 04/16/23 07:59 1 tablet
BID PIETRO Administration
Sodium Chloride 0 flush 03/14/23 21:00 03/22/23 20:25
Sodium Chloride 0.9% (Flush) Syringe IV 04/11/23 20:59 1 flush
PER PROTOCOL PIETRO Administration
--- NOTE | 2023-03-24 10:48 | W.HF.CON ---
Heart Failure
- LV Function
Left ventricular function study result: LV Ejection fraction </= 35%
Ejection Fraction Percentage: 30-35
- ARNI
Patient already on ARNI: No
Heart Failure ARNI Contraindication: Acute Renal Failure
- ACEI/ARB
Patient already on ACEI/ARB: No
Heart Failure ACEI/ARB Contraindication: Acute Renal Failure
- Beta Thanh
Patient already on Evidence Based Beta Thanh: Yes
- Mineralocorticord Receptor Antagonist
Patient already on MRA: No
Heart Failure MRA Contraindication: Acute Renal Insufficiency
- SGLT-2 Inhibitor
Patient already on SGLT-2 Inhibitor: No
Heart Failure SGLT-2 Inhibitor Contraindication: eGFR < 25
- Afib Anticoagulation
Patient already on Anticoagulation for Afib: Yes
- NYHA CHF Classification
NYHA CHF Classification Level: Class III - Symptoms w/ min exertion, interferes w/ nml daily activity
- ACC/AHA Stage
ACC/AHA Stage: Stage C: Symptomatic Heart Failure
--- NOTE | 2023-03-24 14:44 | PTCARENOTE ---
Pt and Pt's concerned about Pt's confusion at night and Pt's hand tremors which come and go and that are worse in R hand than L. Dr Sung here this morning to see Pt. and aware of this. Neurology consulted. CT head ordered and completed. Pt
A,A+Ox3 today. Labs ordered and obtained.
[2023-03-24 14:54] LABS: Ammonia 32 umol/L (9-30)
--- NOTE | 2023-03-24 15:45 | CM ---
spoke to pt and in room, we discussed dc plans. both pt and prefer pt to go home with VN services, however they are agreeable to a snf is recomm by PT/OT. await PT/OT notes. pt has been at [facility] in the past and would like that facility if
he needs to go.
[2023-03-24 17:14] LABS: TSH Reflex To Free T4 3.11 uIU/ml (0.47-4.68)
[2023-03-24] MEDS: MAG-TAB SR 84 MG PO (18:00)
[2023-03-24] MEDS: LIPITOR 40 MG PO (20:34)
[2023-03-24] MEDS: NEURONTIN 600 MG PO (20:34)
--- NOTE | 2023-03-25 02:44 | PTCARENOTE ---
Patient with no events overnight. He is alert oriented times three and forgetful with a depressed affect. Ringing the erazo appropriately for nursing care overnight. Using urinal at bedside. A-FIB BBB and V-paced beats HR in 60's, call erazo in reach
[2023-03-25 05:07] VITALS: BP 118/69
[2023-03-25 05:19] VITALS: BMI 23.4
[2023-03-25 05:54] LABS: Hematocrit 35.1 % (39.0-52.0); Hemoglobin 11.6 g/dL (13.0-18.0); Mean Corpuscular Hgb 26.4 pg (27.0-31.0); Mean Corpuscular Volume 79.8 fL (80.0-94.0); Mean Platelet Volume 9.5 fL (7.4-10.4); Platelet Count 228 10^3/uL (130-400); Red Cell Dist. Width 18.9 % (11.5-14.5); White Blood Cell Count 6.7 10^3/uL (4.8-10.8)
[2023-03-25 06:05] LABS: ALT (SGPT) 45 U/L (0-50); AST (SGOT) 37 U/L (17-59); Albumin 3.5 g/dl (3.5-5.0); Alkaline Phosphatase 116 U/L (38-126); Blood Urea Nitrogen 52 mg/dl (9-20); Calcium 10.3 mg/dl (8.4-10.2); Carbon Dioxide 28 mmol/L (22-30); Chloride 97 mmol/L (98-107); Estimated Creatinine Clearance 30 ml/min; Glucose 113 mg/dl (70-99); Magnesium 2.2 mg/dl (1.6-2.3); Potassium 3.5 mmol/L (3.5-5.1); Sodium 135 mmol/L (135-145); Total Bilirubin 0.9 mg/dl (0.2-1.3); Total Protein 6.6 g/dl (6.3-8.2); eGFR 28.71
[2023-03-25 07:36] VITALS: BP 106/59
--- NOTE | 2023-03-25 08:35 | PTCARENOTE ---
Pt states he would like to go home today. He realizes we are waiting for him to be seen and discharged by his attending physician. He is A,A+O x3, no complaints presently.
[2023-03-25] MEDS: SENOKOT-S 1 TABLET PO (08:36)
[2023-03-25] MEDS: NEURONTIN 300 MG PO (08:37)
[2023-03-25] MEDS: ELIQUIS 5 MG PO (08:37)
[2023-03-25] MEDS: KCL 20 MEQ PO (08:37)
[2023-03-25] MEDS: VITAMIN B-6 50 MG PO (08:37)
[2023-03-25] MEDS: COREG 6.25 MG PO (08:38)
[2023-03-25] MEDS: LASIX 80 MG PO (08:38)
[2023-03-25] MEDS: XOPENEX HFA 45 MCG INHALER 2 PUFF INH (09:00)
--- NOTE | 2023-03-25 09:18 | W.PN.HOSP.TC ---
Today's Communication/Plan
-
pt now agreeable to d/c
Assessment / Plan
Assessment / Plan
pt is a 77 year old male
Acute on chronic HFrEF exacerbation/Cardiomyopathy with ICD--was on milrinone and diuresis--Admitting weight was 187 which was much higher than his baseline of 160s--Prior echo shows EF of 25 to 30% (09/2022)--patient's weight has decreased since
admission--right heart cardiac cath says euvolemic--cont coerg, lasix, Kcl per cards
RACHELE on CKD 3B (baseline approx 1.8) concerning for cardiorenal syndrome (with creat 2.8 down to 2.4 likely new baseline)--Monitor with diuresis/milrinone-- metolazone given, naproxen--apprec renal--diuresis as able--cont milrinone--Worsening
creatinine noted--RHC shows euvolemia--Diuretics switched to oral.
Normocytic anemia--Newly low. Other cell lines are okay-- iron deficient- --no overt external bleeding. S/p 1 unit of PRBC 2/5 with improved hemoglobin and general feeling of improvement.. Hemoglobin remained stable. If heme positive consult GI
due to iron deficiency and patient being on anticoagulation.
Moderate mitral regurgitation/Moderate tricuspid regurgitation/Moderate pulmonary hypertension
Permanent atrial fibrillation--Continue Eliquis
Coronary artery disease status post PCI in 2004/CABG in 2018--Continue statin
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
Thyroid cancer status post thyroidectomy
COPD on 2 L in the night/morning as needed--Continue inhalers
Former smoker with hx of Lung cancer status post right upper lobe lobectomy
Restless leg syndrome--Continue gabapentin
code status --Full code
DVT prophylaxis�Eliquis
confusion, tremors, etc--new per pt--no hx of dementia that I can see--apprec neuro--possibly early cognitive impairment from class III-IV CHF (was on milrinone)--unfortunately cannot d/c until neuro sees--CT scan shows atrophy not much else--likely
early cognitive decline
Anticipated Discharge: Today
Subjective/Interval History
-
Date of Service: March 25, 2023
pt now wants to go home
Objective Data
-
Labs:
Laboratory Results
03/25/23
05:14
WBC 6.7
Hgb 11.6 L
Hct 35.1 L
Plt Count 228
Sodium 135
Potassium 3.5
Chloride 97 L
Carbon Dioxide 28
BUN 52 H
Creatinine 2.3 H
Glucose 113 H
Calcium 10.3 H
Total Bilirubin 0.9
AST 37
ALT 45
Alkaline Phosphatase 116
Vital Signs:
max temp for 24 hours
03/25/23
05:08
Temp 98.2 F
Vital Signs
Temp Pulse Resp BP Pulse Ox
98.1 F 72 14 106/59 95
03/25/23 07:34 03/25/23 09:05 03/25/23 09:05 03/25/23 07:36 03/25/23 07:34
I&O
03/24/23 03/25/23 03/26/23
06:59 06:59 06:59
Intake Total 630 / 630 100 / 100
Output Total 1075 / 1075 1100 / 1100
Balance -445 / -445 -1000 / -1000
Review of Systems
-
All other systems: Reviewed and negative
Physical Exam
-
General: Well Developed, Well Nourished and No Apparent Distress
HEENT: Normocephalic and Atraumatic
Respiratory: Clear to Auscultation; Negative Wheezes or Rhonchi
Cardiac: Regular Rhythm, S1/S2 and Murmur
GI: Soft, Nontender, Nondistended and Normal Bowel Sounds
Musculoskeletal: No Clubbing, No Cyanosis and No Edema
Neuro: Awake
Psych: Calm
[2023-03-25] MEDS: TYLENOL 650 MG PO (10:12)
--- NOTE | 2023-03-25 10:41 | W.PN.NEURO.1 ---
Today's Communication / Plan
-
.
Subjective/Objective
Subjective Data
Date of Service: March 25, 2023
Mr. Davison reports no complaints. He is eager to go home.
CT head (03/24/2023)�chronic left [employer] territory infarct.
Ammonia-32, normal TSH.
PMH: L [employer] stroke(2021), lung/thyroid CA, CAD, HFrEF (LVEF 25-30%) perm A-Fib, CKD, n, left eye blindness(traumatic), nephrolithiasis
PSH: PPM, appendectomy, CABG, PTCIs, tonsillectomy, Bladder repair, left inguinal hernia repair, Left upper lobectomy, thyroidectomy
SH: ; retired, former smoker; retired from [employer] industry, was ambulating with a cane before the hospitalization
FH:noncontributory
All: PNC, codeine
ROS:Constitutional: Negative. Negative for chills, fever and unexpected weight change.
HENT: Positive for hearing impairment
Eyes: Positive for visual impairment
Respiratory: Negative for cough, choking and shortness of breath.
Cardiovascular: Positive for dyspnea on exertion
Gastrointestinal: Negative for abdominal pain and vomiting.
Endocrine: Negative. Negative for cold intolerance.
Musculoskeletal: Positive for intermittent left leg with
Skin: Negative for rash.
Allergic/Immunologic: Negative. Negative for immunocompromised state.
Neurological: Positive for abnormal movements, intermittent confusion, imbalance
�
�
General: Well developed. In no acute distress.
Cardio: Regular rate and rhythm without murmur. Extremities are without cyanosis or edema.
Neuro:
Mental Status: Alert, oriented to person, place, and date.� Normal attention and recall.� Good fund of knowledge. Follows complex requests across the midline.� Comprehension, naming, and repetition intact.�
Cranial Nerves: L eye opacification. OD 3mm, reactive. EOMs full.� R hemianopsia on liliam R. R ptosis.� No nystagmus.� V1-V3 intact to light touch and pinprick bilaterally, symmetric.� Face symmetric.� Impaired� hearing AU.� The palate elevated well.�
SCMs and traps 5/5.� Tongue midline.� Edentulos dysarthria.
Motor: � � � Increased motor tone right greater than left.� No pronator or arm drift.� Strength 5/5 throughout no clonus.
Reflexes: � � � � � � 3+ throughout the upper extremities and knees. � Plantar responses flexor bilaterally.
Sensory: Reduced vibration at the toes
Coordination: R>L action hand tremor. BL UE myoclonus. No dysmetria
Gait: � � � � � deferred
Assessment and Plan:
I. Encephalopathy(vascular
II.� Parkinsonism
III.� Metabolic myoclonus
IV.� Distal sensory: Vibratory neuropathy affecting lower extremities
V. 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
-Fall precautions;
-Continue Eliquis 5 mg BID
-PT
-OP Neurology follow up in 2-3 weeks
�
I personally reviewed all radiology and labs along with past medical records pertinent to current medical problems.
�
Thank you for allowing us to participate in the care of this patient. Please do not hesitate to contact us with any questions or concerns
Objective Data
Vital Signs
Temp Pulse Resp BP Pulse Ox
36.7 C 72 14 106/59 95
03/25/23 07:34 03/25/23 09:05 03/25/23 09:05 03/25/23 07:36 03/25/23 07:34
Lab Results
03/25/23 05:14
03/25/23 05:14
Sodium 135 mmol/L (135-145) 03/25/23 05:14
Potassium 3.5 mmol/L (3.5-5.1) 03/25/23 05:14
BUN 52 mg/dl (9-20) H 03/25/23 05:14
Glucose 113 mg/dl (70-99) H 03/25/23 05:14
Calcium 10.3 mg/dl (8.4-10.2) H 03/25/23 05:14
Wmu-L-Onlgulaixnt Pept 1740 pg/ml 03/17/23 04:16
Vitamin B12 346 pg/ml (618-374) 03/16/23 02:39
Patient Allergies
codeine [Codeine] Allergy (Verified 03/14/23 16:36)
nausea vomiting
Penicillins Allergy (Verified 03/14/23 16:36)
Hives, swelling, tolerated ceftriaxone Feb 2020
--- NOTE | 2023-03-25 11:19 | CM ---
spoke with pt/ on phone, PT/OT recomm home health, [facility], referral faxed. for dc to home today.
--- NOTE | 2023-03-25 18:02 | W.DCSUMMARY ---
Discharge Summary
Discharge Data
Date of Admission: 03/14/23
Date of Discharge: 03/25/23
-
Pending Results: No
Hospital Course
Primary care physician : Patric Riley
Principal Discharge diagnosis : Acute on chronic systolic congestive heart failure exacerbation with cardiomyopathy and ICD, acute kidney injury on chronic kidney disease stage IIIb, normocytic anemia, confusion/tremors
Chronic Discharge diagnosis : Moderate mitral regurgitation/moderate tricuspid regurgitation/moderate pulmonary hypertension, permanent atrial fibrillation, coronary artery disease status post PCI followed by CABG, bicuspid aortic valve status post
TAVR, thyroid cancer status post thyroidectomy, chronic obstructive pulmonary disease with chronic hypoxemic respiratory insufficiency/failure due to being on 2 L at night as needed, history of lung cancer status post right upper lobectomy, restless
leg syndrome
Hospital Course : Patient is a 77-year-old male with systolic congestive heart failure and an ICD and permanent atrial fibrillation on Eliquis who presented with shortness of breath when lying down flat and weight gain. He gained more than 20
pounds. He complained of abdominal bloating and distention. Increasing outpatient Lasix doses to 80 mg/day did not help. He stated he is urinating but not making as much urine as expected. He did have wheezing. He did see his import customs clearing agent who
stopped metoprolol and started Coreg and metolazone but the patient did not pick those up from the pharmacy. He presented with these complaints and was admitted.
Problem #1: Acute on chronic systolic congestive heart failure exacerbation with cardiomyopathy and ICD. Patient was admitted and seen in consultation by cardiology. He was started on a milrinone drip. Diuresis was provided. His admitting weight
was higher than his baseline weight. Prior echocardiogram did show an ejection fraction of 25 to 30% in September 2022. Patient underwent right heart catheterization which stated that the patient was euvolemic. Coreg, Lasix, potassium chloride were
continued and adjusted as needed and will be continued at discharge.
Problem #2: Acute kidney injury on chronic kidney disease stage IIIb. Patient's admitting creatinine appears to be 2.8 or so. Baseline was 1.8. This was concerning for cardiorenal syndrome. As mentioned, he was placed on milrinone and diuresis.
Metolazone was given as well. Naprosyn was held. Renal was consulted to assist with management. Diuretics have been now switched to oral.
Problem #3: Normocytic anemia. This is likely due to anemia of chronic disease. However, his hemoglobin was newly low. Other cell lines were okay. He did appear to be iron deficient but no overt signs of bleeding. He received 1 unit of packed
red blood cells with improved hemoglobin. After that his hemoglobin remained stable.
Problem #4: Confusion/tremors. Patient stated that he has been telling doctors of this throughout his hospital stay. He states that these are new for him. He stated that he would get up in the middle the night and not know where he was, find
himself naked, he was also pulling out IVs. Patient has no history of dementia. Neurology was consulted. CAT scan of his head showed atrophy and an old stroke. This was likely due to early cognitive decline from a combination of class III for
congestive heart failure as well as atrophy noted on CT scan. He should follow-up as an outpatient with neurology.
Problem #5: All other medical issues. These include Moderate mitral regurgitation/moderate tricuspid regurgitation/moderate pulmonary hypertension, permanent atrial fibrillation, coronary artery disease status post PCI followed by CABG, bicuspid
aortic valve status post TAVR, thyroid cancer status post thyroidectomy, chronic obstructive pulmonary disease with chronic hypoxemic respiratory insufficiency/failure due to being on 2 L at night as needed, history of lung cancer status post right
upper lobectomy, restless leg syndrome. These medical issues were stable during his hospitalization. Medications were continued as able.
Patient is stable for discharge home at this time. If there are any questions regarding this dictation or his hospital stay, please not hesitate to call. Our office number is [phone].
Time for discharge 33 minutes.
Important imaging findings :
ECHOCARDIOGRAM CONCLUSIONS:
�Moderately reduced left ventricular systolic function. Estimated left
�ventricular ejection fraction is 30-35%.
�Stage II diastolic dysfunction suggestive of abnormal relaxation and increased
�filling pressures.
�Normal functioning bioprosthetic aortic valve replacement. Peak/mean gradients
�are 28/16� mmHg. No aortic regurgitation is seen.
�Enlarged right ventricular size. Normal right ventricular systolic function.
�Mild/moderate tricuspid regurgitation. Estimated pulmonary artery pressure of
�41 mmHg, assuming a right atrial pressure of 8 mmHg.
��Compared to 10/02/22: LVEF has improved from 25-30% to 30-35%.� MR has improved
�from moderate to mild. TR has improved from moderate to mild/moderate. PASP has
�improved from 55 to 41 mmHg.
Procedure findings :
RIGHT HEART CATH INDICATION: Likely her volume status with CHF
RA: 10
RV: 34/12
PA: 35/15
PCWP: 11
Oximetry: Ao 95%, PA 63%, cardiac output 4.1, cardiac index 2.1
COMPLICATIONS: None
Radiation (mGy): 98.7
DAP (cm2.Gy): 16.4
Fluoroscopy time: 7.1 minutes
CONCLUSION: Normal filling pressures with low normal cardiac output.� The patient is euvolemic at his current weight of 171 pounds
Discharge Plan
-
Patient Disposition: Home with Home Care
Discharge Diagnosis/Procedures: Acute on chronic systolic congestive heart failure exacerbation with cardiomyopathy and ICD, acute kidney injury on chronic kidney disease stage IIIb with new baseline creatinine, anemia of chronic disease/normocytic
anemia, moderate mitral regurgitation with moderate tricuspid regurgitation and moderate pulmonary hypertension, permanent atrial fibrillation, coronary artery disease status post PCI in 2004 and CABG in 2018, bicuspid aortic valve with aortic
stenosis status post-TAVR in 2009, thyroid cancer status post thyroidectomy, chronic hypoxemic respiratory failure due to chronic obstructive pulmonary disease on 2 L as needed, former smoker with history of lung cancer status post right upper
lobectomy, restless leg syndrome
Condition: Fair
Diet: Low Fat, Low Cholesterol, 2 Gram Sodium and Restrict fluids to 48 oz
Activity: As tolerated
Driving Restrictions: As prior to admission
Bathing Restrictions: None
Other Services: VN
Specialty Instructions: Weigh Daily- Call MD for wt gain/loss 3 lbs overnight/5 lbs in 1 week
Activity Restrictions/Additional Instructions:
Gabapentin dose has been decreased due to to renal dysfunction/tremors
Stop naproxen as needed medications (nonsteroidal meds including Aleve, Advil, ibuprofen, etc.) are contraindicated in heart failure
Instructions: *CBC Heart Failure Instructions
Referrals:
[facility] [Outside] (RN-PT-OT services)
Patric Riely MD [Family Provider] - in less than 1 week
Bettie Braswell CRNP [Specified Professional Personl] - 03/27/23 9:20 am
Prescriptions:
New
furosemide 80 mg Tablet
80 mg PO DAILY Qty: 30 0RF
sennosides-docusate sodium [Stool Softener-Stimulant Laxat] 8.6-50 mg Tablet
1 tab PO BID Qty: 0 0RF
potassium chloride 20 mEq tablet extended release
20 meq PO BID Qty: 60 0RF
Continued
atorvastatin 40 MG tablet
40 mg PO HS
Eliquis 5 mg tablet
5 mg PO BID@0800,1600 Qty: 0 0RF
levalbuterol tartrate [Xopenex HFA] 45 mcg/actuation HFA aerosol inhaler
2 inh inhalation R BID
carvedilol [Coreg] 6.25 mg Tablet
6.25 mg PO Q12H
Rx Instructions:
stop metoprolol while on coreg
gabapentin 300 mg Capsule
300 mg PO DAILY
pyridoxine (vitamin B6) 500 mg Tablet
500 mg PO DAILY
potassium chloride 20 mEq Tablet Extended Release
20 meq PO DAILY
magnesium oxide 400 mg magnesium Tablet
400 mg PO QPM
Discontinued
furosemide 40 mg tablet
40 mg PO BID
metolazone 2.5 mg Tablet
2.5 mg PO MOWEFR
naproxen sodium [Aleve] 220 mg Tablet
440 mg PO DAILYPRN PRN (Reason: mild pain)
gabapentin 300 mg Capsule
600 mg PO HS
Discharge Orders:
Discharge Patient (As Directed); Ordered 03/25/23
Ordered By: Jaz Sung
Care Plan Goals
Care Plan Goals:
Problem: Readiness for enhanced knowledge related to diagnosis and treatment plan
Goal: Understand your diagnosis and treatment plan needs, including medications if applicable.
Instructions: Know your diagnosis, underlying causes and treatment plan options, including medications if applicable. Consult with your health care team to learn about your diagnosis and treatment plan, including medications if applicable.
Discharge Date and Time
Discharge Date/Time: 03/25/23 11:37
== END 2023-03-25 11:37 | disposition home health service (06) | DRG 286 ==
LOC: IVU 19:51
PROVIDERS: Internal Medicine; Internal Medicine Cardiovascular Disease; Nurse Practitioner Gerontology; Specialist; ADMITTING PHYSICIAN Hospitalist; ATTENDING PHYSICIAN Internal Medicine; CONSULT PHYSICIAN Internal Medicine; CONSULT PHYSICIAN Psychiatry & Neurology Neurology; CONSULT PHYSICIAN Specialist; EMERGENCY PHYSICIAN Student in an Organized Health Care Education/Training Program; FAMILY PHYSICIAN Family Medicine
PROC: 30233N1 Transfusion of Nonautologous Red Blood Cells into Peripheral Vein, Percutaneous Approach (ICD-10-PCS; 2023-03-17)
PROC: B2141ZZ Fluoroscopy of Right Heart using Low Osmolar Contrast (ICD-10-PCS; 2023-03-21)
PROC: 4A023N6 Measurement of Cardiac Sampling and Pressure, Right Heart, Percutaneous Approach (ICD-10-PCS; 2023-03-21)
DX: I13.0 Hypertensive heart and chronic kidney disease with heart failure and stage 1 through stage 4 chronic kidney disease, or unspecified chronic kidney disease (principal); I50.23 Acute on chronic systolic (congestive) heart failure; I48.21 Permanent atrial fibrillation; I25.810 Atherosclerosis of coronary artery bypass graft(s) without angina pectoris; N17.9 Acute kidney failure, unspecified; Z79.01 Long term (current) use of anticoagulants; Z95.5 Presence of coronary angioplasty implant and graft; Z95.810 Presence of automatic (implantable) cardiac defibrillator; N18.32 Chronic kidney disease, stage 3b; Z95.3 Presence of xenogenic heart valve; Z85.850 Personal history of malignant neoplasm of thyroid; Z87.891 Personal history of nicotine dependence; J44.9 Chronic obstructive pulmonary disease, unspecified; I08.3 Combined rheumatic disorders of mitral, aortic and tricuspid valves; I27.20 Pulmonary hypertension, unspecified; G25.81 Restless legs syndrome; D63.1 Anemia in chronic kidney disease; K59.00 Constipation, unspecified; E87.6 Hypokalemia
CPT/HCPCS: 36415; 70450; 71046; 76705; 80048; 80053; 80076; 82140; 82607; 82728; 83540; 83550; 83735; 83880; 84443; 85025; 85027; 85045; 86850; 86900; 86901; 86920; 93005; 93306; 93451; 94640; 96374; 97116; 97163; 97167; 97530; 97535; 99285; C1894; J2260; J2916; P9016

== ENCOUNTER 2023-04-01 12:49 | Inpatient (IN) | payer OTHER, SELFPAY ==
[2023-04-01] VITALS (13 sets, daily range): BP systolic 93–148; BP diastolic 55–105; BMI 23.8; BMI 23.1
[2023-04-01 07:29] LABS: % Immature Granulocytes 0.4 % (0-0.5); % Monocytes 8.6 % (1.7-9.3); Absolute Basophils 0.1 10^3/uL (0-0.2); Absolute Eosinophils 0.2 10^3/uL (0-0.7); Absolute Lymphocytes 1.2 10^3/uL (1.2-3.4); Absolute Monocytes 0.9 10^3/uL (0.1-0.6); Absolute Neutrophils 8.2 10^3/uL (1.4-6.5); Hematocrit 36.6 % (39.0-52.0); Hemoglobin 11.8 g/dL (13.0-18.0); Mean Corp Hgb Conc. 32.2 g/dL (33.0-37.0); Mean Corpuscular Hgb 27.1 pg (27.0-31.0); Mean Corpuscular Volume 83.9 fL (80.0-94.0); Mean Platelet Volume 9.9 fL (7.4-10.4); Nucleated Red Blood Cells % 0 % (-); Platelet Count 237 10^3/uL (130-400); Red Blood Cell Count 4.36 10^6/uL (4.70-6.10); Red Cell Dist. Width 19.6 % (11.5-14.5); White Blood Cell Count 10.6 10^3/uL (4.8-10.8)
[2023-04-01 07:31] LABS: Venous Blood Gas B.E. 0.7 mmol/L (-4 to +4); Venous Blood Gas HCO3 25.4 mmol/L (22-27); Venous Blood Gas O2 Sat % 77.4 %; Venous Blood Gas pCO2 40 mmHg (35-48); Venous Blood Gas pH 7.41 (7.32-7.43); Venous Blood Gas pO2 45 mmHg (30-50)
[2023-04-01 07:47] LABS: ALT (SGPT) 32 U/L (0-50); AST (SGOT) 34 U/L (17-59); Alkaline Phosphatase 131 U/L (38-126); Blood Urea Nitrogen 71 mg/dl (9-20); Calcium 10.2 mg/dl (8.4-10.2); Carbon Dioxide 24 mmol/L (22-30); Chloride 107 mmol/L (98-107); Estimated Creatinine Clearance 28 ml/min; Glucose 116 mg/dl (70-99); Potassium 5.1 mmol/L (3.5-5.1); Sodium 138 mmol/L (135-145); Total Bilirubin 0.9 mg/dl (0.2-1.3); eGFR 25.98
--- NOTE | 2023-04-01 07:49 | ED.GENMED ---
History of Present Illness
General
Chief Complaint: Breathing Problem
Source: patient and spouse
Exam Limitations: none
Time Seen by Provider: 04/01/23 07:32
Nursing documentation reviewed up to this point in time: agreed with
Travel History
Have you had any contact with someone who has COVID-19?: No
Do you have any symptoms of coronavirus? Fever > 100 degrees, chills, cough, shortness of breath, sore throat, loss of taste or smell, muscle aches, or headache?: No
History of Present Illness
History of Present Illness:
77-year-old male presents emergency department complaining of shortness of breath worsening over the past several days, he has gained 4 pounds over the past several days.
Past History
Past History
ED Past Medical History: Arrthythmia (Atrial fib), CAD, Cancer (lung/Thyroid), CHF, COPD, CVA, HTN, Hypercholesterolemia, IA, Valvular disease and Other (sepsis, Headache over the left eye continually, Renal issues, Blind left eye, Ulcers)
ED Past Surgical History: Appendectomy, Cardiac (CABG, stents), Tonsilectomy, Urological (Bladder repair, ) and Other (Laparoscopic left inguinal hernia repair November 19, 2021, Left upper lobectomy, thyroidectomy)
Social History
Tobacco: Former smoker (Sneaking a few cigarettes according to .)
Alcohol: Daily (Wine 1)
Drug: None
Personal:
Living: with family
Employment: Retired
Family History
Family History: Other (Noncontributory)
Review of Systems
Review of Systems
Allergies reviewed?: Yes
All Other Systems: Not applicable
Constitutional: Reports weight gain
EENT: Reports no symptoms
Respiratory: Reports trouble breathing
Cardiac: Reports no symptoms
ABD/GI: Reports no symptoms
: Reports no symptoms
Musculoskeletal: Reports no symptoms
Skin: Reports no symptoms
Neurological: Reports no symptoms
Endocrine: Reports no symptoms
Hematologic/Lymphatic: Reports no symptoms
Psychiatric: Reports no symptoms
Phy Exam
Physical Exam
Physical Exam:
Physical Exam
General: Afebrile
Neck: supple. no meningeal signs. normal posterior pharynx
Heart: s1/s2 regular rate and rhythm, no murmur. equal radial
pulses. Pacemaker left upper chest
HEENT: Pupils equal round reactive to light, EOMI
Lungs: no acute respiratory distress. clear bilaterally
Abdomen: normal bowel sounds. not tender. no CVAT
Neuro: alert and oriented. no focal neurological deficits cranial nerves II through XII intact
Skin: no rash
Psychiatric: well kept. interactive and cooperative
Extremities: no edema. no calf tenderness. negative homans. good distal pulses
Scores
Heart Failure Risk
Heart Failure Risk Score: Yes
History of Stroke or TIA: Yes
History of intubation for respiratory distress: No
Heart rate on ED arrival >/= 110: No
SaO2 <90% on arrival on room air: No
HR >/=110 during 3min walk test (or too ill to perform test): No
ECG has acute ischemic changes: No
Urea >/=12mmol/L (BUN 33.6mg/dL): Yes
Serum CO2>/=35mmol/L: No
Troponin I or T elevated to IA Level (0.4mg/dL): No
NT-proBNP >/=5,000ng/L (5,000pg/ml): No
HF Risk Score: 2
Admission Status: MEDIUM RISK 9.2% Consider observation or discharge to home with homecare & f/u visit to PCP/[employer] M[employer] Fabricator, or SNF for treatment
Course
Orders/Labs/Results
Orders:
Orders
04/01/23 07:09
Electrocardiogram (*1) Urgent
Reason for Study: Shortness of Breath
CXR2 [CR Chest - 2 Views ] Urgent
Comment:
Reason For Exam: shortness of breath
04/01/23 07:10
EKG- Treatment ONCE
04/01/23 07:21
Complete Blood Count/With Diff Urgent
Comprehensive Metabolic Panel Urgent
NT-proBNP Urgent
Troponin I Urgent
Comment: ADD ON
Venous Blood Gas Urgent
%Oxygen/Room Air: 97
04/01/23 07:48
Interrogate Pacemaker- Treatment ONCE
04/01/23 07:49
Add On- LAB Urgent
Tests Added?: troponin
04/01/23 09:56
Acetaminophen [Tylenol] 650 mg PO NOW STA
Ipratropium/Albuterol Sulfate [Duoneb] 3 ml INH R NOW STA
04/01/23 10:02
Dexamethasone Sod Phosphate [Decadron] 10 mg IV NOW STA
04/01/23 12:36
Admit/Transfer Patient As Directed
Co-Sign Provider:
Level of Care: Inpatient admission
Assign to:: Telemetry
Physician / Group: Isabela Benoit - miguel ángelists
Diagnosis: acute CHF, SOB
Reason for Telemetry: Acute Heart Failure
Date to Stop Telemetry: 04/04/23
Time to Stop Telemetry: 11:00
Reason for Hospitalization: acute CHF, SOB - IV diuretics
Expected length of stay greater than two midnights?: Yes
ELOS- Estimated Length of Stay in days: 3
I certify the patient meets the requirements for IP care: Yes
04/01/23 12:37
Code Status As Directed
Resuscitation Status: Full Code
04/04/23 11:00
DC Protocol for Telemetry ONCE
Abnormal Lab Results
04/01/23
07:21
RBC 4.36 L 10^6/uL
(4.70-6.10)
Hgb 11.8 L g/dL
(13.0-18.0)
Hct 36.6 L %
(39.0-52.0)
MCHC 32.2 L g/dL
(33.0-37.0)
RDW 19.6 H %
(11.5-14.5)
Absolute Neuts (auto) 8.2 H 10^3/uL
(1.4-6.5)
Absolute Monos (auto) 0.9 H 10^3/uL
(0.1-0.6)
Neutrophils % 77.0 H %
(42.2-75.2)
Lymphocytes % 11.0 L %
(20.5-51.1)
BUN 71 H mg/dl
(9-20)
Creatinine 2.5 H mg/dL
(0.7-1.3)
Glucose 116 H mg/dl
(70-99)
Alkaline Phosphatase 131 H U/L
(38-126)
Troponin I 0.048 H* ng/ml
04/01/23 07:21
04/01/23 07:21
Vital Signs
Initial and Last Documented VS:
Initial Vital Signs
Temp Pulse Resp BP Pulse Ox
98 F 50 26 130/55 98
04/01/23 06:45 04/01/23 06:45 04/01/23 06:45 04/01/23 06:45 04/01/23 06:45
Last Documented Vital Signs
Temp Pulse Resp BP Pulse Ox
98 F 81 19 128/66 97
04/01/23 06:45 04/01/23 12:00 04/01/23 12:00 04/01/23 12:00 04/01/23 12:00
MDM/Problems Addressed
Differential Diagnosis Includes:
pneumonia, chf, copd exacerbation
MDM/Problems Addressed:
77 yo male with copd exacerbation, chf. Admit to hospitalist.
Chronic conditions affecting care: COPD and Other (chf)
Acute Exacerbation and/or Progression of Chronic Illness: COPD and Other (chf)
*Radiology
Radiology exam reviewed: radiology read reviewed (cxr nad)
*Pulse Oximetry
Patient hypoxic: no
*EKG
Interpreted by ED Provider?: Yes
EKG Intrepretation Date: 04/01/23
EKG Intrepretation Time: 06:54
Interpretation: abnormal
Comparison EKG: changes noted
Heart Rate: 86
Rate: normal
Rhythm: atrial flutter
[place]: normal axis
Interval: normal interval
QRS Pattern: wide non-specific and left vent hypertrophy
Ischemia: non-specific ST changes
*Heating Technician Interpretation
Rate: normal
Interpretation: abnormal
Rhythm: atrial flutter
*Critical Care Note
Total Time (30-74mins, 75-104mins- exclusive of procedures): Not Applicable
Data Reviewed
Review of Other/Old Records Reveals: Progress Notes (ef 25%)
Patient Management
Social determinants of health affecting care: Living situation
Discussion with other providers: Hospitalist
Escalation/DeEscalation of care consider admission/obs:
admit indicated
ED Attending Note
-
Portions of this chart may have been created with voice recognition software.� Occasional wrong word or��sound alike� substitutions may have occurred due to the inherent limitations of voice recognition software.
Discharge Plan
Departure
Patient Disposition: Admit
Date of Disposition: 04/01/23
Time of Disposition: 09:58
Admit to: Telemetry
Presentation/result/management discussed w/ accepting MD/DO: Hospitalist
Patient with high blood pressure during this ER visit?: No
Condition: Fair
Discharge Problem:
COPD with acute exacerbation, CHF (congestive heart failure), Atrial flutter
Interventions
Interventions:
*Risk Screen - Suicide Last Done: 04/01/23 06:45
*General Assessment Last Done: 04/01/23 07:15
*Neglect/Abuse Screening Last Done: 04/01/23 06:45
ED- Fall Risk Assessment Last Done: 04/01/23 07:15
*ED COVID-19 Vaccine History Last Done: 04/01/23 07:15
ED- Cardiac Assessment Last Done: 04/01/23 07:15
ED- Pulmonary Assessment Last Done: 04/01/23 07:15
[2023-04-01 07:53] LABS: NT-proBNP 2580 pg/ml
--- NOTE | 2023-04-01 08:00 | EDRN ---
the pt pressed the call erazo and this RN entered the pts room, the pt stated, 'I didn't press the call erazo, I don't need anything', will continue to monitor the pt closely
--- NOTE | 2023-04-01 08:30 | EDRN ---
the pt pressed the call erazo and this RN entered the pts room and asked the pt if he needed anything, the pt stated, 'I didn't press the call erazo, i didn't even touch it', the call erazo is in the pts hand, this RN oriented the pt to the use of the
call erazo, the pt denies needing anything at this time, will continue to monitor the pt closely
[2023-04-01 08:48] LABS: Troponin I 0.048 ng/ml
--- NOTE | 2023-04-01 08:50 | EDRN ---
the pts Troponin came back elevated, this RN notified Dr. Merida
--- NOTE | 2023-04-01 09:46 | EDRN ---
the pt is resting in stretcher in the lowest position, side rails up x2, call reazo within reach, HOB slightly elevated, the pts is currently at the pts bedside, the pt is currently still in Aflutter in the 80's, VS WNL, RA Sp02 98%, awaiting
for Dr. Campos to come to the pts bedside to reassess, [employer] in ED speaking to provider, will continue to monitor the pt closely
--- NOTE | 2023-04-01 09:52 | EDRN ---
the pt pressed the call erazo and this RN entered the pts room, the pt stated to this RN, 'First of all the blood pressure cuff is annoying, second of all i'm cold, and i don't want to be here, and i would like a couple tylenol for my headache', this
RN notified Dr. Campos who is currently at the pts bedside speaking with the pt and the pts , this RN provided the pt with a warm blanket, will continue to monitor the pt closely
[2023-04-01] MEDS: DUONEB 3 ML INH (10:07)
[2023-04-01] MEDS: DECADRON 10 MG IV (10:07)
[2023-04-01] MEDS: TYLENOL 650 MG PO (10:07)
--- NOTE | 2023-04-01 12:20 | HPS.HSE ---
Family Physician
-
Family Physician: Patric Riley
Chief Complaint
-
SOB
History of Present Illness
77 y/o M hx of COPD, Advanced CHF, CKD, Afib, hx of CVA, HTN, prior [place], left eye blindness presenting to ER for shortness of breath. Patient was discharged from 1 week ago for acute CHF admission requiring milrinone and right heart cath, also saw
nephrology for worsening CKD. He was discharged home. Since returning home, patient reports SOB when laying flat, also SOB at rest. Denies CP, no fever/chills. no cough. no sick contacts. Per , his weight has been increasing and is now 6lbs from
prior discharge. She called Cardiology office with instructions to increase Lasix but symptoms did not improved. Last evening she called on-call Cardiology who referred her to ER for admission.
Medical History
Past Medical History
Past Medical History: Reports Other (hx of COPD, Advanced CHF, CKD, Afib, hx of CVA, HTN, prior FL, left eye blindness)
Past Surgical History: Reports Appendectomy, Bowel Resection (hernia repairs), Cardiac, Tonsilectomy and Urological
Social History
Tobacco: Former Smoker
Alcohol: None
Drug: None
Personal:
Living: With Family
Employment: Retired
Family History
Family History: Not pertinent
Allergies / Home Medications
Allergies reflects when Allergies were last updated in [employer].
Home Medications with original date entered in [employer]
Allergy/Medication List:
Allergies
Allergy/AdvReac Type Severity Reaction Status Date / Time
codeine [Codeine] Allergy nausea Verified 04/01/23 06:48
vomiting
Penicillins Allergy Hives, Verified 04/01/23 06:48
swelling,
tolerated
ceftriaxone
Feb 2020
Home Medications
atorvastatin 40 mg tablet 40 mg PO HS High cholesterol 04/25/22
carvedilol 6.25 mg tablet (Coreg) 6.25 mg PO Q12 blood pressure / heart condition 03/14/23
gabapentin 300 mg capsule 300 mg PO HS Pain 03/14/23
levalbuterol tartrate 45 mcg/actuation aerosol inhaler (Xopenex HFA) 2 inh inhalation R BID Lung/Breathing Issues 03/14/23
magnesium oxide 400 mg PO QPM Electrolyte Repletion 03/14/23
potassium chloride 20 mEq tablet,extended release 20 meq PO DAILY Electrolyte Repletion 03/14/23
pyridoxine (vitamin B6) 500 mg tablet 500 mg PO DAILY Supplement 03/14/23
acetaminophen 500 mg tablet (Tylenol Extra Strength) 1,000 mg PO Q6H PRN mild pain 04/01/23
apixaban 5 mg tablet (Eliquis) 5 mg PO BID Blood clot prevention/tx 04/01/23
furosemide 40 mg tablet 40 mg PO BID@0800,1600 04/01/23
levalbuterol tartrate 45 mcg/actuation aerosol inhaler 2 puff inhalation R Q4HPRN PRN shortness of breath 04/01/23
sennosides 8.6 mg-docusate sodium 50 mg tablet (Stool Softener-Stimulant Laxative) 1 tab PO BIDPRN PRN constipation 04/01/23
Review of Systems
-
A 12 point ROS was completed and negative except as noted: Yes
Physical Exam
Vital Signs
Vital Signs
Temp Pulse Resp BP Pulse Ox
98 F 81 19 128/66 97
04/01/23 06:45 04/01/23 12:00 04/01/23 12:00 04/01/23 12:00 04/01/23 12:00
Physical Exam
General: Respiratory Distress (mild) and Appears Chronically Ill
HEENT: NormoCephalic and Anicteric
Respiratory: Rales
Cardiac: S1/S2 and Regular Rhythm
GI: Soft
Musculoskeletal: Edema, Left Lower Extremity and Edema, Right Lower Extremity
Neuro: AO x 3
Psych: Calm
Laboratory Results
-
04/01/23 07:21
04/01/23 07:21
Laboratory Results
Total Bilirubin 0.9 mg/dl (0.2-1.3) 04/01/23 07:21
AST 34 U/L (17-59) 04/01/23 07:21
ALT 32 U/L (0-50) 04/01/23 07:21
Alkaline Phosphatase 131 U/L (38-126) H 04/01/23 07:21
Troponin I 0.048 ng/ml H* 04/01/23 07:21
Data Reviewed
-
Lab Data: Labs Reviewed by me
Impression/Plan
-
Assessment:
Acute on chronic HFrEF exacerbation
Hx of Cardiomyopathy with ICD
Moderate mitral regurgitation/Moderate tricuspid regurgitation/Moderate pulmonary hypertension
- recent hospitalization for 10 days; dc 1 week ago. was on Milrinone and had RHC
- now admitting with concern for recurrent CHF with orthopnea, weight gain of 6 lbs
- Lasix IV 40mg BID; requires intensive monitoring of lytes/weights/IOs
- GDMT: Coreg
- CBC cards consulted
CKD stage 3b, worsened recently from cardio-renal state
- new baseline Cr. 2.5 to 3.0 range
- monitor with ongoing diuresis
COPD without convincing evidence of flare (no cough, increase sputum production, fever/chills)
Former smoker with hx of Lung cancer status post right upper lobe lobectomy
- CXR no evidence of PNA
- monitor and continue home nebs
Recent confusion/tremors
- patient saw Neuro last admit, no specific recommendations
- head CT showed: No acute intracranial abnormality noted. Moderate atrophy. Progressed. Old left occipital lobe infarct. Stable
- suspect possible underlying dementia which can be formally tested outpatient. Monitor for in-hospital sundowning.
Normocytic anemia
- recent lab workup normal, no evidence of GI bleeding
Perm Afib
- continue Eliquis/Coreg
Coronary artery disease status post PCI in 2004/CABG in 2018--Continue statin
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
Thyroid cancer status post thyroidectomy
Restless leg syndrome--Continue gabapentin
DVT ppx: Eliquis
Code: Full
--- NOTE | 2023-04-01 14:19 | EDRN ---
this RN called the receiving unit and notified them that paper report was going to be tubed up
--- NOTE | 2023-04-01 16:03 | W.PN.CD ---
Today's Communication / Plan
-
Consult dicated
- I suspect his current dyspnea is not from volume overload
- I suspect that he is dry/over diuresed
- I suspect renal function will improve with hydration/decreasing diuretic.
- Once renal function better then he should tolerate more GDMT for his LV dysfunction
More than 85 mint spent on patient care with most of that time reviewing extensive records
Impression / Plan
-
Background: 77M with ICM EF 30-35% admitted with dyspnea
Dyspnea
- Last 2 right heart caths did not show significantly elevated filling pressures
- HE SEEMS DRY.
- DRY WEIGHT. PERHAPS TOO DRY is 171 pounds or 77.7 kg. Current weight is listed at 77.3 kg
- Could there be other causes to his dyspnea
- Consider pulmonary consult
Cardiomyopathy, underlying CAD and valve disease
Chronic HFrEF (LVEF 30-35%)
- DRY WEIGHT. PERHAPS TOO DRY is 171 pounds or 77.7 kg. Current weight is listed at 77.3 kg
- Stage C, NYHA Class III. But perhaps his dyspnea is not all heart failure
CKD3b
- I suspect that he is dry/over diuresed
CAD
-Inferior [place] with PCI 2004 & CABG 2018 (LOGAN-LAD, VG-PDA)
-Cardiac catheterization - [place] vessel CAD with patent grafts - 10/07/22
-Stable without chest pain.
Permanent atrial fibrillation
-Remains rate controlled: continue coreg
-Oral Anticoagulation: Eliquis 5mg BID
-[id number]: score 4 (Heart failure, age 75 or more, Vascular disease)
Hx of NSVT, primary prevention ICD in place
Anemia, mild
COPD
Former smoker, continued cessation recommended
Subjective:
Data:
Right Heart Cath 03/21/2023: RA: 10; RV: 34/12; PA: 35/15; PCWP: 11 Oximetry: Ao 95%, PA 63%, cardiac output 4.1, cardiac index 2.1. 171 pounds
Echo 03/17/2023: LVEF 30-35%, stage II diastolic dysfxn, bio AVR OK (mean 16, no AI), mild MR, mild/mod TR, PASP 41 mmHg, RA 8 mmHg
Single chamber MDT ICD placed 09/2022
Cath 09/2022: Similar right heart cath results (RA 4, PCWP 10, PA 30/11. 80% mLAD, 100% mRCA. Patent LOGAN to LAD and rSVG to mRPDA
Physical Exam
Vital Signs/Labs
Vital Signs
Temp Pulse Resp BP Pulse Ox
97.8 F 68 18 123/71 98
04/01/23 15:10 04/01/23 15:10 04/01/23 15:10 04/01/23 15:10 04/01/23 15:10
03/31/23 04/01/23 04/02/23
06:59 06:59 06:59
Actual Weight 77.337 kg
04/01/23 07:21
04/01/23 07:21
04/01/23
07:21
Pwt-Y-Qqzincepzyo Pept 2580
LAB Results
04/01/23
07:21
Troponin I 0.048 H*
Data Reviewed
-
Date of Service: April 01, 2023
--- NOTE | 2023-04-01 16:16 | PTCARENOTE ---
Received Pt from ED. Assist x2 to slide over from stretcher to bed. Oriented to room and use of call erazo. Placed on tele A-fib. Heart failure folder given to Pt. Call erazo within reach.
[2023-04-01] MEDS: MAGNESIUM OXIDE 500 MG PO (16:27)
[2023-04-01] MEDS: LASIX 40 MG IV (16:27)
[2023-04-01] MEDS: COREG 6.25 MG PO (20:12)
[2023-04-01] MEDS: ELIQUIS 5 MG PO (20:12)
[2023-04-01] MEDS: NEURONTIN 300 MG PO (20:13)
[2023-04-01] MEDS: LIPITOR 40 MG PO (20:13)
[2023-04-01] MEDS: XOPENEX HFA 45 MCG INHALER 2 PUFF INH (20:40)
[2023-04-02] VITALS (8 sets, daily range): BP systolic 111–134; BP diastolic 51–70; PULSE 63–90; O2SAT 95–98; BMI 23.4
--- NOTE | 2023-04-02 04:16 | DOWNTIME ---
There was a [employer] Client Relationship Manager Downtime on 04/02/2023 from 0111 to 04/02/2023 at 0405. Downtime documentation of patient's care, including medication administrations, has been reconciled in the electronic record per guidelines. Refer to the
patient's paper chart under the miscellaneous tab to see printed paper medication records and downtime forms.
[2023-04-02 05:00] LABS: % Basophils 0.1 % (0-2); % Immature Granulocytes 0.7 % (0-0.5); % Lymphocytes 6.2 % (20.5-51.1); % Monocytes 1.7 % (1.7-9.3); % Neutrophils 91.3 % (42.2-75.2); Absolute Immature Granulocytes 0.1 10^3/uL (0-0.05); Absolute Lymphocytes 0.7 10^3/uL (1.2-3.4); Absolute Monocytes 0.2 10^3/uL (0.1-0.6); Absolute Neutrophils 9.7 10^3/uL (1.4-6.5); Hematocrit 31.1 % (39.0-52.0); Hemoglobin 10.3 g/dL (13.0-18.0); Mean Corp Hgb Conc. 33.1 g/dL (33.0-37.0); Mean Corpuscular Hgb 26.6 pg (27.0-31.0); Mean Corpuscular Volume 80.4 fL (80.0-94.0); Mean Platelet Volume 10.1 fL (7.4-10.4); Nucleated Red Blood Cells % 0 % (-); Platelet Count 236 10^3/uL (130-400); Red Blood Cell Count 3.87 10^6/uL (4.70-6.10); Red Cell Dist. Width 20.2 % (11.5-14.5); White Blood Cell Count 10.6 10^3/uL (4.8-10.8)
[2023-04-02 05:22] LABS: Blood Urea Nitrogen 87 mg/dl (9-20); Calcium 10.5 mg/dl (8.4-10.2); Carbon Dioxide 21 mmol/L (22-30); Chloride 106 mmol/L (98-107); Estimated Creatinine Clearance 29 ml/min; Glucose 146 mg/dl (70-99); Magnesium 2.7 mg/dl (1.6-2.3); Potassium 4.2 mmol/L (3.5-5.1); Sodium 135 mmol/L (135-145); eGFR 27.28
[2023-04-02] MEDS: XOPENEX HFA 45 MCG INHALER 2 PUFF INH (07:41)
[2023-04-02] MEDS: KCL 20 MEQ PO (08:07)
[2023-04-02] MEDS: ELIQUIS 5 MG PO ×2 (08:07→20:10)
[2023-04-02] MEDS: VITAMIN B-6 50 MG PO (08:08)
[2023-04-02] MEDS: COREG 6.25 MG PO ×2 (08:08→20:11)
[2023-04-02] MEDS: LASIX 40 MG IV (08:08)
--- NOTE | 2023-04-02 08:25 | W.PN.CD ---
Today's Communication / Plan
-
- Dyspnea and appearance are out of proportion to his cardiac issues (recent RHC with euvolemia and LHC in September)
- Change Lasix to usual dose
Impression / Plan
-
Background: 77M with ICM EF 30-35% admitted with dyspnea
Dyspnea
- Last 2 right heart caths did not show significantly elevated filling pressures
- Could there be other causes to his dyspnea? Consider pulmonary consult
Cardiomyopathy, underlying CAD and valve disease
Chronic HFrEF (LVEF 30-35%)
- Continue BB
- other GDMT limited by CKD and BP
- change Lasix to usual dose and run even
- his weight is same as recent euvolemic RHC
CAD
-Inferior [place] with PCI 2004 & CABG 2017 (LOGAN-LAD, VG-PDA)
-Cardiac catheterization - [place] vessel CAD with patent grafts - 10/07/22
-Stable without chest pain.
Permanent atrial fibrillation
-Remains rate controlled: continue coreg
-Oral Anticoagulation: Eliquis 5mg BID
-[id number]: score 4 (Heart failure, age 75 or more, Vascular disease)
Hx of NSVT, primary prevention ICD in place
Anemia, mild
COPD
Former smoker, continued cessation recommended
Subjective: No CP/palps. Dyspnea stable
Data:
Right Heart Cath 03/21/2023: RA: 10; RV: 34/12; PA: 35/15; PCWP: 11 Oximetry: Ao 95%, PA 63%, cardiac output 4.1, cardiac index 2.1. 171 pounds
Echo 03/17/2023: LVEF 30-35%, stage II diastolic dysfxn, bio AVR OK (mean 16, no AI), mild MR, mild/mod TR, PASP 41 mmHg, RA 8 mmHg
Single chamber MDT ICD placed 09/2022
Cath 09/2022: Similar right heart cath results (RA 4, PCWP 10, PA 30/11. 80% mLAD, 100% mRCA. Patent LOGAN to LAD and rSVG to mRPDA
Laboratory Data
01/01/22 03/20/23 03/21/23
04:03 03:22 04:54
Hgb 11.0 L
VBG pH
Creatinine 3.0 H
Zxq-Y-Oljszodjpzr Pept > 22523
04/01/23 04/01/23 04/02/23
07:21 07:21 04:23
Hgb
VBG pH 7.41
Creatinine 2.5 H 2.4 H
Kbl-N-Huiuudclgce Pept 2580
04/02/23
04:23
Hgb 10.3 L
VBG pH
Creatinine
Yeb-A-Acexablucnu Pept
Generic Name Dose Route Start Last Admin
Trade Name Callum PRN Reason Stop Dose Admin
Apixaban 5 mg 04/01/23 20:00
Apixaban (Eliquis) 5 Mg Tablet PO 04/29/23 19:59
BID PIETRO
Atorvastatin Calcium 40 mg 04/01/23 22:00
Atorvastatin (Lipitor) 40 Mg Tablet PO 04/29/23 21:59
HS PIETRO
Carvedilol 6.25 mg 04/01/23 20:00
Carvedilol 6.25 Mg Tablet PO 04/29/23 19:59
Q12 PIETRO
Furosemide 40 mg 04/01/23 16:00
Furosemide 40 Mg (10 Mg/Ml) 4 Ml Vial IV 04/29/23 15:59
BID AT 0800,1600 PIETRO
Milrinone Lactate/Dextrose 20 mg in 100 mls @ 0 mls/hr 03/14/23 17:30
Primacor 20 Mg IV
PER PROTOCOL PIETRO
Protocol
Per Protocol
Carvedilol 6.25 mg 03/14/23 20:44
Carvedilol 6.25 Mg Tablet PO 04/11/23 20:43
Q12 PIETRO
Apixaban 5 mg 03/15/23 08:00
Apixaban (Eliquis) 5 Mg Tablet PO 04/12/23 07:59
BID@0800,1600 PIETRO
Atorvastatin Calcium 40 mg 03/14/23 22:00
Atorvastatin (Lipitor) 40 Mg Tablet PO 04/11/23 21:59
HS PIETRO
Furosemide 80 mg 03/19/23 16:00
Furosemide 100 Mg (10 Mg/Ml) 10 Ml Vial IV 04/16/23 15:59
BID AT 0800,1600 PIETRO
Physical Exam
Vital Signs/Labs
Vital Signs
Temp Pulse Resp BP Pulse Ox
36.7 C 63 20 115/53 97
04/02/23 07:10 04/02/23 08:08 04/02/23 07:10 04/02/23 08:08 04/02/23 07:10
04/01/23 04/02/23 04/03/23
06:59 06:59 06:59
Actual Weight 172 lb 6.4 oz
04/02/23 04:23
04/02/23 04:23
Magnesium 2.7 mg/dl (1.6-2.3) H 04/02/23 04:23
04/01/23
07:21
Njk-B-Odlelysrdgu Pept 2580
LAB Results
04/01/23
07:21
Troponin I 0.048 H*
Physical Exam
Constitutional: Other (Frail)
EENT: Anicteric and Moist mucous membranes
Cardiovascular: Pedal edema is absent, Systolic murmur absent, Diastolic murmur absent and Rhythm/rate is irregular
Respiratory: Respiratory effort normal
GI: Soft, Distention absent, Non tender and Normal bowel sounds
Neuro/Psych: Alert
Data Reviewed
-
Date of Service: April 02, 2023
--- NOTE | 2023-04-02 09:32 | PTOTSP ---
Speech Therapy Swallowing Assessment
Oral-pharyngeal swallow deemed within functional limits with no overt signs of aspiration but risk is elevated given elevated wob and baseline COPD. Reviewed safe swallowing strategies with the patient including rest breaks, upright positioning etc.
Recommend
1. Regular solids and thin liquids.
2. Select more softer food to reduced fatigue.
3. Aspiration and Reflux precautions.
4. Meds with liquids as tolerated.
No skilled ST indicated.
--- NOTE | 2023-04-02 10:03 | W.PN.HOSP.TC ---
Today's Communication/Plan
-
Monitor vital signs and see plan
Add ipratropium
Pulmonary evaluation
Consider Noncon CT chest if symptoms do not improve
Monitor renal function
Assessment / Plan
Assessment / Plan
General: mild respiratory Distress and Appears Chronically Ill
HEENT: NormoCephalic and Anicteric
Respiratory: Rales
Cardiac: S1/S2 and Regular Rhythm
GI: Soft
Musculoskeletal: Edema, Left Lower Extremity and Edema, Right Lower Extremity
Neuro: AO x 3
Psych: Calm
Acute on chronic HFrEF exacerbation
Hx of Cardiomyopathy with ICD
Moderate mitral regurgitation/Moderate tricuspid regurgitation/Moderate pulmonary hypertension
- recent hospitalization for 10 days; dc 1 week ago. was on Milrinone and had RHC
- now admitting with concern for recurrent CHF with orthopnea, evaluated by cardiology who does not think patient is in CHF
- Lasix changed to PO
- GDMT: Coreg
-Cardiology following
CKD stage 3b, worsened recently from cardio-renal state
Cr 2.4
- new baseline Cr. 2.5 to 3.0 range
- monitor with ongoing diuresis
If getting worse or does not improve then will get nephrology evaluation
COPD without convincing evidence of flare (no cough, increase sputum production, fever/chills)
Former smoker with hx of Lung cancer status post right upper lobe lobectomy
- CXR no evidence of PNA
- monitor and continue home nebs
dont see any LAMA or ICS that he takes at home; add ipratropium for now
consider non con CT chest if symptoms dont improve
Pulmonary evaluation
Recent confusion/tremors
- patient saw Neuro last admit, no specific recommendations
- head CT showed: No acute intracranial abnormality noted. Moderate atrophy. Progressed. Old left occipital lobe infarct. Stable
- suspect possible underlying dementia which can be formally tested outpatient. Monitor for in-hospital ing.
Mild hypercalcemia
Monitor
Normocytic anemia
- recent lab workup normal, no evidence of GI bleeding
Perm Afib
- continue Eliquis/Coreg
Coronary artery disease status post PCI in 2004/CABG in 2018--Continue statin
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
Thyroid cancer status post thyroidectomy
Restless leg syndrome--Continue gabapentin
DVT ppx: Eliquis
Code: Full
Anticipated Discharge: > 48 hours
Subjective/Interval History
-
Date of Service: April 02, 2023
denies pain,lethargic
Objective Data
-
Labs:
Laboratory Results
04/02/23
04:23
WBC 10.6
Hgb 10.3 L
Hct 31.1 L
Plt Count 236
Sodium 135
Potassium 4.2
Chloride 106
Carbon Dioxide 21 L
BUN 87 H
Creatinine 2.4 H
Glucose 146 H
Calcium 10.5 H
Vital Signs:
Vital Signs
Temp Pulse Resp BP Pulse Ox
98.0 F 63 20 115/53 96
04/02/23 07:10 04/02/23 08:08 04/02/23 07:40 04/02/23 08:08 04/02/23 07:40
I&O
04/01/23 04/02/23 04/03/23
06:59 06:59 06:59
Intake Total 480 / 480
Output Total 1350 / 1350
Balance -870 / -870
[2023-04-02] MEDS: ATROVENT NEBULES INH (10:31)
--- NOTE | 2023-04-02 11:41 | CON.PUL ---
Addendum entered and electronically signed by Chino Tran MD 04/02/23 18:35:
Chest CT s/c 04-02: moderate to severe emphysema. RUL lobectomy
6MWT, spirometry pending
Original Note:
Consultation
Consultation Request
Date/Time Consultation Requested: 04-02-23
Date/Time Consultation Performed: 04-02-23
Requesting Provider: Hospitalist
Performing Provider: Dr Tran
Reason for Consultation: dyspnea
Medical History
-
Chief Complaint: dyspnea
History of Present Illness:
Mr Tae Davison is a 77/M readm 04-01 with c/w recurrent dyspnea and orthopnea.
Recently adm for CHF requiring milrinone and RHC 03/21/2023 (RA: 10; RV: 34/12; PA: 35/15; PCWP: 11 Oximetry: Ao 95%, PA 63%, cardiac output 4.1, cardiac index 2.1).
Seen by Cards, suspected currently dry and overdiuresed, rec rehydration given worsening renal failure
Chronic HYDE and fatigue. Former heavy smoker, known COPD but never seen by pulm, only on alb HFA
Past Medical History
Past Medical History: Other (see A&P for PMH/PSH)
Social History
Tobacco: Former Smoker
Alcohol: None
Drug: None
Personal:
Living: With Family
Employment: Retired
Family History
Family History: Reviewed & Not Pertinent
Allergies / Home Medications
Allergies
Allergy/AdvReac Type Severity Reaction Status Date / Time
codeine [Codeine] Allergy nausea Verified 04/01/23 06:48
vomiting
Penicillins Allergy Hives, Verified 04/01/23 06:48
swelling,
tolerated
ceftriaxone
Feb 2020
Home Medications
Medication Instructions Recorded Confirmed Last Taken Type
atorvastatin 40 mg tablet 40 mg PO HS High cholesterol 04/25/22 04/01/23 03/31/23 History
carvedilol 6.25 mg tablet (Coreg) 6.25 mg PO Q12 blood pressure / 03/14/23 04/01/23 03/31/23 History
heart condition
gabapentin 300 mg capsule 300 mg PO HS Pain 03/14/23 04/01/23 03/31/23 History
levalbuterol tartrate 45 2 inh inhalation R BID 03/14/23 04/01/23 03/31/23 History
mcg/actuation aerosol inhaler Lung/Breathing Issues
(Xopenex HFA)
magnesium oxide 400 mg PO QPM Electrolyte Repletion 03/14/23 04/01/23 03/31/23 History
potassium chloride 20 mEq 20 meq PO DAILY Electrolyte 03/14/23 04/01/23 03/31/23 History
tablet,extended release Repletion
acetaminophen 500 mg tablet 1,000 mg PO Q6H PRN mild pain 04/01/23 04/01/23 03/31/23 History
(Tylenol Extra Strength)
apixaban 5 mg tablet (Eliquis) 5 mg PO BID Blood clot 04/01/23 04/01/23 03/31/23 21:00 History
prevention/tx
furosemide 40 mg tablet 40 mg PO BID@0800,1600 Fluid 04/01/23 04/01/23 03/31/23 16:30 History
Retention/Swelling
levalbuterol tartrate 45 2 puff inhalation R Q4HPRN PRN 04/01/23 04/01/23 04/01/23 04:00 History
mcg/actuation aerosol inhaler shortness of breath
pyridoxine (vitamin B6) 50 mg 50 mg PO DAILY Supplement 04/01/23 04/01/23 03/31/23 History
tablet (Vitamin B-6)
sennosides 8.6 mg-docusate sodium 1 tab PO BIDPRN PRN constipation 04/01/23 04/01/23 Unknown History
50 mg tablet (Stool
Softener-Stimulant Laxative)
Review of Systems
-
History Source: Patient
All other systems: Negative unless noted
Constitutional: Weight Gain (6 lb) and Fatigue
Respiratory: Trouble Breathing
Cardiac: Other (orthopnea)
Neuro: Weakness
Vitals / Labs / Diagnostic Testing
Vital Signs
Temp Pulse Resp BP Pulse Ox
98.2 F 63 18 121/70 96
04/02/23 11:00 04/02/23 11:00 04/02/23 11:00 04/02/23 11:00 04/02/23 11:00
Lab Data
04/02/23 04:23
04/02/23 04:23
Diagnostic Testing:
Physical Exam
-
HEENT: Moist Mucous Membranes and Thrush (n)
Cardiovascular: Regular Rhythm, Murmur and JVD
Respiratory: Clear and Non-Labored Respirations
GI: Soft, Non Distended and Non Tender
Neurology: Awake, AO x 3 and No Motor Deficits
Skin: Dry
General: Respiratory Distress (n)
Assessment
-
Assessment:
Mr Tae Davison is a 77/M readm 04-01 with c/w recurrent dyspnea and orthopnea. Recently adm for CHF requiring milrinone and RHC 03/21/2023 (RA: 10; RV: 34/12; PA: 35/15; PCWP: 11 Oximetry: Ao 95%, PA 63%, cardiac output 4.1, cardiac index 2.1).
Seen by Cards, suspected currently dry and overdiuresed, rec rehydration given worsening renal failure
Impression:
Chronic HYDE
COPD, no pulm follow up per patient
HFrEF
Mild anemia
Increasing BNP
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
COPD, on levalbuterol HFA
Advanced CHF, on furosemide, carvedilol
TTE 03-17-23: LVEF 30-35%, stage II DD, enlarged RV with normal systolic function
NSVT, ICD
Bicuspid AV, , s/p bioprosthetic AV 2017
CKD
AFib, on apixaban
H/o CVA
HTN
CAD, prior [place], PCI 2004, CABG 2017
L blindness
RLS on gabapentin
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 Did not need chemo-XRT
Thyroid cancer: R lobectomy August 2010, papillary carcinoma 6 mm
Past Surgical History: Reports Appendectomy, Bowel Resection (hernia repairs), Cardiac, Tonsillectomy and Urological
Former Smoker
Plan:
H/o heavy smoking, 1 ppd for 57y (1ppd till age 75)
Chronic fatigue and HYDE
Though no evidence of CHF, does have HFrEF and stage II DD
CTA 2010 reported bilateral emphysema (films not available)
CT abd May 2022 with few lung basilar cuts showig posterior basilar emphysematous changes
Of note RUL lobectomy in 2010 for lung cancer
Former heavy smoker, s/p RUL lobectomy, COPD of unknown severity
Clinically not in AECOPD
POx 96% on RA at rest
Only on albuterol HFA as outpatient, never seen by pulm
Currently on levalbuterol/ipratropium tid and prn but does not appear in need of ATC dosing
Will check bedside spirometry, 6MWT and chest CT s/c
Needs dedicated outpatient pulm evaluation, agreed to come to [facility] for full PFTs
Has been already referred for sleep study, pending date
Continue cards mgmt
D/w Mr and Mrs Davison
Disposition efforts
Diagnostic tests:
CXR 04-01-23 c/w 03-14-23, improved pulm vasc congestion. L chest AICD
CT abd/p 05-16-22: few basilar lung cuts. posterior basilar emphysematous changes R>L
CTA April 2010 reported bilateral emphysema, 13 mm nodule at RUL (PET CT May 2010 with mild FDG avidity)
[2023-04-02] MEDS: NON-FORMULARY ITEM 1 UNIT BOTH EYES ×2 (13:23→18:36)
[2023-04-02] MEDS: XOPENEX 1.25 MG INHALANT SOLUTION INH ×2 (14:05→20:15)
[2023-04-02] MEDS: ATROVENT NEBULES 0.5 MG INH ×2 (14:05→20:15)
--- NOTE | 2023-04-02 14:13 | CM ---
Initial assessment completed with patient and who live in a 2 story home with B/B on and 1/2 bath on . Patient was recently discharged approximately 1 week ago with [facility] services. Initial evaluation with VN and PT completed but no
additional visits. DME in home and not in use is a [employer]. Patient uses a walking stick for ambulation. Patient does not drive. His transports to appointments. He has been a patient at [facility] in the past. Pharmacy is
[facility] [address] in [place] and PCP is Dr. Patric Riley. Anticipate home with resumption of HH. Will follow should needs change.
--- NOTE | 2023-04-02 14:58 | PTCARENOTE ---
pt requested for all 4 side rails to be up.
[2023-04-02] MEDS: TYLENOL 1000 MG PO (16:16)
[2023-04-02] MEDS: MAGNESIUM OXIDE 500 MG PO (17:00)
[2023-04-02] MEDS: NEURONTIN 300 MG PO (20:10)
[2023-04-02] MEDS: LIPITOR 40 MG PO (20:11)
[2023-04-03] VITALS (7 sets, daily range): BP systolic 113–135; BP diastolic 48–72; PULSE 70; BMI 22.4
[2023-04-03] MEDS: NON-FORMULARY ITEM 1 UNIT BOTH EYES ×2 (00:08→08:39)
--- NOTE | 2023-04-03 04:52 | PTCARENOTE ---
Patient's would like a call from the [employer] today.
[2023-04-03 06:13] LABS: % Basophils 0.1 % (0-2); % Immature Granulocytes 0.6 % (0-0.5); % Lymphocytes 7.2 % (20.5-51.1); % Monocytes 8.2 % (1.7-9.3); % Neutrophils 83.9 % (42.2-75.2); Absolute Immature Granulocytes 0.1 10^3/uL (0-0.05); Absolute Monocytes 1.1 10^3/uL (0.1-0.6); Absolute Neutrophils 11.4 10^3/uL (1.4-6.5); Hemoglobin 9.4 g/dL (13.0-18.0); Mean Corp Hgb Conc. 33.6 g/dL (33.0-37.0); Mean Corpuscular Volume 80.5 fL (80.0-94.0); Mean Platelet Volume 10.1 fL (7.4-10.4); Nucleated Red Blood Cells % 0 % (-); Platelet Count 225 10^3/uL (130-400); Red Blood Cell Count 3.48 10^6/uL (4.70-6.10); Red Cell Dist. Width 20.5 % (11.5-14.5); White Blood Cell Count 13.6 10^3/uL (4.8-10.8)
[2023-04-03 06:40] LABS: Blood Urea Nitrogen 98 mg/dl (9-20); Calcium 10.4 mg/dl (8.4-10.2); Carbon Dioxide 23 mmol/L (22-30); Chloride 106 mmol/L (98-107); Estimated Creatinine Clearance 29 ml/min; Glucose 130 mg/dl (70-99); Potassium 4.5 mmol/L (3.5-5.1); Sodium 136 mmol/L (135-145); eGFR 28.71
[2023-04-03] MEDS: XOPENEX 1.25 MG INHALANT SOLUTION INH ×2 (07:58→13:35)
[2023-04-03] MEDS: ATROVENT NEBULES 0.5 MG INH ×2 (07:58→13:35)
[2023-04-03] MEDS: VITAMIN B-6 50 MG PO (08:34)
[2023-04-03] MEDS: ELIQUIS 5 MG PO ×2 (08:34→20:47)
[2023-04-03] MEDS: LASIX 40 MG PO (08:34)
[2023-04-03] MEDS: COREG 6.25 MG PO ×2 (08:34→20:47)
[2023-04-03] MEDS: KCL 20 MEQ PO (08:34)
[2023-04-03] MEDS: TYLENOL 1000 MG PO ×2 (08:42→22:02)
--- NOTE | 2023-04-03 09:27 | W.PN.HOSP.TC ---
Today's Communication/Plan
-
Monitor vitals
See plan
Spirometry today
Pulmonary following
cw ipratropium,xoponex
Assessment / Plan
Assessment / Plan
General: mild respiratory Distress and Appears Chronically Ill
HEENT: NormoCephalic and Anicteric
Respiratory: Rales
Cardiac: S1/S2 and Regular Rhythm
GI: Soft
Musculoskeletal: Edema, Left Lower Extremity and Edema, Right Lower Extremity
Neuro: AO x 3
Psych: Calm
Acute on chronic HFrEF exacerbation
Hx of Cardiomyopathy with ICD
Moderate mitral regurgitation/Moderate tricuspid regurgitation/Moderate pulmonary hypertension
- recent hospitalization for 10 days; dc 1 week ago. was on Milrinone and had RHC
- now admitting with concern for recurrent CHF with orthopnea, evaluated by cardiology who does not think patient is in CHF
- Lasix changed to PO
- GDMT: Coreg
-Cardiology following
CKD stage 3b, worsened recently from cardio-renal state
Cr 2.3
- new baseline Cr. 2.5 to 3.0 range
- monitor
If getting worse or does not improve then will get nephrology evaluation
COPD without convincing evidence of flare (no cough, increase sputum production, fever/chills)
Former smoker with hx of Lung cancer status post right upper lobe lobectomy
- CXR no evidence of PNA
- monitor and continue home nebs
dont see any LAMA or ICS that he takes at home; add ipratropium for now
Chest CT 04/02 with moderate to severe emphysema. Right upper lobe lobectomy
Spirometry pending
Pulmonary following
Recent confusion/tremors
- patient saw Neuro last admit, no specific recommendations
- head CT showed: No acute intracranial abnormality noted. Moderate atrophy. Progressed. Old left occipital lobe infarct. Stable
- suspect possible underlying dementia which can be formally tested outpatient. Monitor for in-hospital .
Mild hypercalcemia
Monitor
Normocytic anemia
- recent lab workup normal, no evidence of GI bleeding
Perm Afib
- continue Eliquis/Coreg
Coronary artery disease status post PCI in 2004/CABG in 2018--Continue statin
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
Thyroid cancer status post thyroidectomy
Restless leg syndrome--Continue gabapentin
DVT ppx: Eliquis
Code: Full
Anticipated Discharge: 24 - 48 hours
Subjective/Interval History
-
Date of Service: April 03, 2023
Fatigue
Objective Data
-
Labs:
Laboratory Results
04/03/23
05:29
WBC 13.6 H
Hgb 9.4 L
Hct 28.0 L
Plt Count 225
Sodium 136
Potassium 4.5
Chloride 106
Carbon Dioxide 23
BUN 98 H
Creatinine 2.3 H
Glucose 130 H
Calcium 10.4 H
Vital Signs:
Vital Signs
Temp Pulse Resp BP Pulse Ox
97.4 F 65 24 135/72 95
04/03/23 07:05 04/03/23 07:55 04/03/23 07:55 04/03/23 07:05 04/03/23 07:55
I&O
04/02/23 04/03/23 04/04/23
06:59 06:59 06:59
Intake Total 480 / 480 1800 / 1800
Output Total 1350 / 1350 2100 / 2100 150 / 150
Balance -870 / -870 -300 / -300 -150 / -150
--- NOTE | 2023-04-03 11:14 | W.PN.CD ---
Today's Communication / Plan
-
- Pulmonary consult appreciated
- Hold Lasix, 500 cc bolus, no fluid restriction
Impression / Plan
-
Background: 77M with ICM EF 30-35% admitted with dyspnea.
Dyspnea
- Last 2 right heart caths did not show significantly elevated filling pressures
- Pulmonary consult appreciated
Cardiomyopathy, underlying CAD and valve disease
Chronic HFrEF (LVEF 30-35%)
- Continue BB
- other GDMT limited by CKD and BP
- Hold Lasix, 500 cc bolus, no fluid restriction
- his weight is below recent euvolemic RHC
CAD
-Inferior [place] with PCI 2004 & CABG 2017 (LOGAN-LAD, VG-PDA)
-Cardiac catheterization - new [place] vessel CAD with patent grafts - 10/07/22
-Stable without chest pain.
Permanent atrial fibrillation
-Remains rate controlled: continue coreg
-Oral Anticoagulation: Eliquis 5mg BID
-[id number]: score 4 (Heart failure, age 75 or more, Vascular disease)
Hx of NSVT, primary prevention ICD in place
Anemia, mild
COPD
Former smoker, continued cessation recommended
Subjective: No CP/palps. Dyspnea stable
Data:
Right Heart Cath 03/21/2023: RA: 10; RV: 34/12; PA: 35/15; PCWP: 11 Oximetry: Ao 95%, PA 63%, cardiac output 4.1, cardiac index 2.1. 171 pounds
Echo 03/17/2023: LVEF 30-35%, stage II diastolic dysfxn, bio AVR OK (mean 16, no AI), mild MR, mild/mod TR, PASP 41 mmHg, RA 8 mmHg
Single chamber MDT ICD placed 09/2022
Cath 09/2022: Similar right heart cath results (RA 4, PCWP 10, PA 30/11. 80% mLAD, 100% mRCA. Patent LOGAN to LAD and rSVG to mRPDA
Laboratory Data
01/01/22 03/20/23 03/21/23
04:03 03:22 04:54
Hgb 11.0 L
VBG pH
Creatinine 3.0 H
Jgg-C-Ronolbkuapw Pept > 18250
04/01/23 04/01/23 04/02/23
07:21 07:21 04:23
Hgb
VBG pH 7.41
Creatinine 2.5 H 2.4 H
Esc-D-Fvlypnuzypc Pept 2580
04/02/23
04:23
Hgb 10.3 L
VBG pH
Creatinine
Pby-S-Imjzieyajaz Pept
Generic Name Dose Route Start Last Admin
Trade Name Freomayra PRN Reason Stop Dose Admin
Apixaban 5 mg 04/01/23 20:00
Apixaban (Eliquis) 5 Mg Tablet PO 04/29/23 19:59
BID PIETRO
Atorvastatin Calcium 40 mg 04/01/23 22:00
Atorvastatin (Lipitor) 40 Mg Tablet PO 04/29/23 21:59
HS PIETRO
Carvedilol 6.25 mg 04/01/23 20:00
Carvedilol 6.25 Mg Tablet PO 04/29/23 19:59
Q12 PIETRO
Furosemide 40 mg 04/01/23 16:00
Furosemide 40 Mg (10 Mg/Ml) 4 Ml Vial IV 04/29/23 15:59
BID AT 0800,1600 PIETRO
Milrinone Lactate/Dextrose 20 mg in 100 mls @ 0 mls/hr 03/14/23 17:30
Primacor 20 Mg IV
PER PROTOCOL PIETRO
Protocol
Per Protocol
Carvedilol 6.25 mg 03/14/23 20:44
Carvedilol 6.25 Mg Tablet PO 04/11/23 20:43
Q12 PIETRO
Apixaban 5 mg 03/15/23 08:00
Apixaban (Eliquis) 5 Mg Tablet PO 04/12/23 07:59
BID@0800,1600 PIETRO
Atorvastatin Calcium 40 mg 03/14/23 22:00
Atorvastatin (Lipitor) 40 Mg Tablet PO 04/11/23 21:59
HS PIETRO
Furosemide 80 mg 03/19/23 16:00
Furosemide 100 Mg (10 Mg/Ml) 10 Ml Vial IV 04/16/23 15:59
BID AT 0800,1600 PIETRO
Physical Exam
Vital Signs/Labs
Vital Signs
Temp Pulse Resp BP Pulse Ox
36.4 C 74 24 131/68 97
04/03/23 11:04 04/03/23 11:04 04/03/23 11:04 04/03/23 11:04 04/03/23 11:04
04/02/23 04/03/23 04/04/23
06:59 06:59 06:59
Actual Weight 172 lb 6.4 oz 165 lb 2 oz
04/03/23 05:29
04/03/23 05:29
Magnesium 2.7 mg/dl (1.6-2.3) H 04/02/23 04:23
04/01/23
07:21
Zob-K-Hlhclqkaufo Pept 2580
LAB Results
04/01/23
07:21
Troponin I 0.048 H*
Physical Exam
Constitutional: No acute distress
EENT: Anicteric and Moist mucous membranes
Cardiovascular: Rhythm & rate is regular, Pedal edema is absent, Systolic murmur absent and Diastolic murmur absent
Respiratory: Respiratory effort normal
GI: Soft, Distention absent and Normal bowel sounds
Neuro/Psych: Alert and Oriented
Data Reviewed
-
Date of Service: April 03, 2023
[2023-04-03] MEDS: NSS 500 IV (12:34)
--- NOTE | 2023-04-03 15:02 | W.PN.PUL3 ---
Today's Communication / Plan
-
levalb prn
symbicort
BCMA f/u
Dispo
Assessment
-
Assessment:
Mr Tae Davison is a 77/M readm 04-01 with c/w recurrent dyspnea and orthopnea. Recently adm for CHF requiring milrinone and RHC 03/21/2023 (RA: 10; RV: 34/12; PA: 35/15; PCWP: 11 Oximetry: Ao 95%, PA 63%, cardiac output 4.1, cardiac index 2.1).
Seen by Cards, suspected currently dry and overdiuresed, rec rehydration given worsening renal failure
Impression:
Chronic HYDE
COPD, no pulm follow up per patient and
HFrEF
Mild MR
Mild anemia
Increasing BNP
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
COPD, on levalbuterol HFA
Advanced CHF, on furosemide, carvedilol
TTE 03-17-23: LVEF 30-35%, stage II DD, enlarged RV with normal systolic function
NSVT, ICD
Bicuspid AV, , s/p bioprosthetic AV 2017
CKD
AFib, on apixaban
H/o CVA
HTN
CAD, prior MA, PCI 2004, CABG 2017
L blindness
RLS on gabapentin
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 Did not need chemo-XRT
Thyroid cancer: R lobectomy August 2010, papillary carcinoma 6 mm
Past Surgical History: Reports Appendectomy, Bowel Resection (hernia repairs), Cardiac, Tonsillectomy and Urological
Former Smoker
Plan:
H/o heavy smoking, 1 ppd for 57y (1ppd till age 75)
Chronic fatigue and HYDE
Though no evidence of CHF, does have HFrEF and stage II DD
CTA 2010 reported bilateral emphysema (films not available)
CT abd May 2022 with few lung basilar cuts showing posterior basilar emphysematous changes
Of note RUL lobectomy in 2010 for lung cancer
Former heavy smoker, s/p RUL lobectomy, COPD of unknown severity
Clinically not in AECOPD
POx 96% on RA at rest
Only on albuterol HFA as outpatient, never seen by pulm per patient and report
As inpatient currently on levalbuterol/ipratropium tid and prn
Review of inpatient tests:
Bedside spirometry 04-03: moderate obstruction, marginal response to BD challenge
6MWT: baseline POx RA 96%, lowest POx at 5 min down to 89%, but improved up haely 93% upon completion of test. Does not qualify for exertional O2
Chest CT s/c: moderate to severe emphysema. RUL lobectomy
Rec:
Dedicated outpatient pulm evaluation, agreed to come to [facility] upon d/c
Observe off atbs or systemic CS
Levalbuterol to continue prn
Start symbicort, continue upon d/c
Sleep study, already referred, pending date
Continue cards mgmt
D/w Mr and Mrs Davison
Disposition efforts
Diagnostic tests:
CXR 04-01-23 c/w 03-14-23, improved pulm vasc congestion. L chest AICD
CT abd/p 05-16-22: few basilar lung cuts. posterior basilar emphysematous changes R>L
CTA April 2010 reported bilateral emphysema, 13 mm nodule at RUL (PET CT May 2010 with mild FDG avidity)
Subjective Data
-
Date of Service:
Date of Service: April 03, 2023
Chief Complaint: Pulmonary Follow Up
Subjective:
No major events reported
Received spirometry, chest CT and 6MWT
Review of Systems
General: Fever (n), Sweats (n), Chills (n) and Satisfactory Appetite
HEENT: Epistaxis (n) and Dysphagia
Cardiopulmonary: Dyspnea (n at rest), Dyspnea on Exertion, Cough (n), Sputum Production and Wheezing (n)
GI: Abdominal Pain (n), Nausea and Vomiting
Neuro: Weakness
Objective Data
Data Reviewed
Vital Signs / I&O / Oxygen:
Vital Signs
Temp Pulse Resp BP Pulse Ox
97.0 F 69 18 120/60 100
04/03/23 14:43 04/03/23 14:43 04/03/23 14:43 04/03/23 14:43 04/03/23 14:43
Intake and Output
04/02/23 04/03/23 04/04/23
06:59 06:59 06:59
Intake Total 480 / 480 1800 / 1800
Output Total 1350 / 1350 2100 / 2100 150 / 150
Balance -870 / -870 -300 / -300 -150 / -150
SaO2 100
Physical Exam
General: Comfortable
HEENT: Normocephalic and Moist Mucous Membranes
Cardiovascular: Regular Rhythm, Murmur (n) and Peripheral Edema (n)
Respiratory: Clear, Non-Labored Respirations and Stridor (n)
GI: Soft, Non Distended and Non Tender
Neurology: Awake, AO x 3 and No Motor Deficits
Skin: Dry
Labs/Micro/Reports
Lab Data
04/03/23 05:29
04/03/23 05:29
--- NOTE | 2023-04-03 15:47 | CM ---
PFT's done today. PT recommendation for resumption of HH. Patient was on service with [facility] prior to admission. Will send updated referral.
[2023-04-03] MEDS: MAGNESIUM OXIDE 500 MG PO (17:07)
[2023-04-03] MEDS: SYMBICORT 80/4.5 MCG INHALER 2 PUFF INH (19:49)
[2023-04-03] MEDS: NSS IV (20:47)
[2023-04-03] MEDS: NEURONTIN 300 MG PO (20:47)
[2023-04-03] MEDS: LIPITOR 40 MG PO (20:48)
[2023-04-04 03:14] VITALS: BP 122/68
[2023-04-04 05:29] VITALS: BMI 22.8
[2023-04-04 06:03] LABS: % Basophils 0.2 % (0-2); % Eosinophils 0.1 % (0-6); % Immature Granulocytes 0.7 % (0-0.5); % Monocytes 10.5 % (1.7-9.3); % Neutrophils 72.5 % (42.2-75.2); Absolute Immature Granulocytes 0.1 10^3/uL (0-0.05); Absolute Lymphocytes 2.4 10^3/uL (1.2-3.4); Absolute Monocytes 1.6 10^3/uL (0.1-0.6); Absolute Neutrophils 10.8 10^3/uL (1.4-6.5); Hematocrit 26.1 % (39.0-52.0); Hemoglobin 8.5 g/dL (13.0-18.0); Mean Corp Hgb Conc. 32.6 g/dL (33.0-37.0); Mean Corpuscular Hgb 27.2 pg (27.0-31.0); Mean Corpuscular Volume 83.7 fL (80.0-94.0); Mean Platelet Volume 10.6 fL (7.4-10.4); Nucleated Red Blood Cells % 0.7 % (-); Platelet Count 236 10^3/uL (130-400); Red Blood Cell Count 3.12 10^6/uL (4.70-6.10); Red Cell Dist. Width 20.6 % (11.5-14.5); White Blood Cell Count 14.8 10^3/uL (4.8-10.8)
[2023-04-04 06:34] LABS: Blood Urea Nitrogen 98 mg/dl (9-20); Calcium 9.8 mg/dl (8.4-10.2); Carbon Dioxide 23 mmol/L (22-30); Chloride 106 mmol/L (98-107); Estimated Creatinine Clearance 32 ml/min; Glucose 114 mg/dl (70-99); Potassium 4.1 mmol/L (3.5-5.1); Sodium 136 mmol/L (135-145); eGFR 32.02
[2023-04-04 07:00] VITALS: BP 115/52
[2023-04-04] MEDS: SYMBICORT 80/4.5 MCG INHALER 2 PUFF INH ×2 (07:52→20:33)
[2023-04-04] MEDS: VITAMIN B-6 50 MG PO (08:58)
[2023-04-04] MEDS: KCL 20 MEQ PO (08:59)
[2023-04-04] MEDS: COREG 6.25 MG PO ×2 (08:59→20:08)
[2023-04-04] MEDS: ELIQUIS 5 MG PO ×2 (08:59→20:09)
--- NOTE | 2023-04-04 09:16 | W.PN.HOSP.TC ---
Addendum entered and electronically signed by Abhishek Dobbs MD 04/04/23 11:21:
Spoke with cardiology and they do not want Lasix to be decreased or held on discharge. Per cardiology aim for weight 171 to 174 pounds. Patient can hold Lasix if weight less than 171 pounds. 40 mg twice daily Lasix on discharge
Addendum entered and electronically signed by Abhishek Dobbs MD 04/04/23 09:43:
updated spouse over the phone
Original Note:
Today's Communication/Plan
-
monitor vitals
monitor leukocytosis
hgb low; IV iron
check heme test stool
cw LABA/ICS; switch to advair on dc as its covered by insurance
lasix on hold; might need lower dose on dc, awaiting cardiology to see today
called spouse; left voicemail
Assessment / Plan
Assessment / Plan
General: Appears Chronically Ill
HEENT: NormoCephalic and Anicteric
Respiratory: Rales
Cardiac: S1/S2 and Regular Rhythm
GI: Soft
Musculoskeletal: trace edema
Neuro: AO x 3
Psych: Calm
Sob likely 2/2 emphysema
COPD without convincing evidence of flare (no cough, increase sputum production, fever/chills)
Former smoker with hx of Lung cancer status post right upper lobe lobectomy
- CXR no evidence of PNA
- monitor and continue home nebs
dont see any LAMA or ICS that he takes at home; symbicort added; on dc send advair as its covered by insurance
Chest CT 04/02 with moderate to severe emphysema. Right upper lobe lobectomy
Spirometry 04/04 with moderate obstruction and marginal response to bronchodilator challenge
Pulmonary following
chronic HFrEF exacerbation; dont think there was acute exacerbation this hospitalization
Hx of Cardiomyopathy with ICD
Moderate mitral regurgitation/Moderate tricuspid regurgitation/Moderate pulmonary hypertension
- recent hospitalization for 10 days; dc 1 week ago. was on Milrinone and had RHC
- now admitting with concern for recurrent CHF with orthopnea, evaluated by cardiology who does not think patient is in CHF
- Lasix changed to PO however now held 2/2 over diuresis
- GDMT: Coreg
-Cardiology following
CKD stage 3b, worsened recently from cardio-renal state
Cr 2.1
- monitor
If getting worse or does not improve then will get nephrology evaluation
Recent confusion/tremors
- patient saw Neuro last admit, no specific recommendations
- head CT showed: No acute intracranial abnormality noted. Moderate atrophy. Progressed. Old left occipital lobe infarct. Stable
- suspect possible underlying dementia which can be formally tested outpatient. Monitor for in-hospital sundowning.
Mild hypercalcemia
improving
Normocytic anemia
- recent lab workup normal, no evidence of GI bleeding
low iron on recent work up; IV iron
Perm Afib
- continue Eliquis/Coreg
Coronary artery disease status post PCI in 2004/CABG in 2018--Continue statin
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
Thyroid cancer status post thyroidectomy
Restless leg syndrome--Continue gabapentin
DVT ppx: Eliquis
Code: Full
I spent a total of 52 minutes with the patient or on the floor. More than 50% of this time involved counseling and coordination of care.
Anticipated Discharge: Within 24 hours
Subjective/Interval History
-
Date of Service: April 04, 2023
feels tired
Objective Data
-
Labs:
Laboratory Results
04/04/23
05:08
WBC 14.8 H
Hgb 8.5 L
Hct 26.1 L
Plt Count 236
Sodium 136
Potassium 4.1
Chloride 106
Carbon Dioxide 23
BUN 98 H
Creatinine 2.1 H
Glucose 114 H
Calcium 9.8
Vital Signs:
Vital Signs
Temp Pulse Resp BP Pulse Ox
97.8 F 70 14 115/52 95
04/04/23 07:00 04/04/23 08:59 04/04/23 07:58 04/04/23 08:59 04/04/23 07:58
I&O
04/03/23 04/04/23 04/05/23
06:59 06:59 06:59
Intake Total 1800 / 1800 3015 / 3015
Output Total 2100 / 2099 1740 / 1740
Balance -300 / -300 1275 / 1275
[2023-04-04] MEDS: TYLENOL 1000 MG PO ×2 (10:30→20:08)
[2023-04-04] MEDS: NSS (PRESERVATIVE FREE) 10 ML IV (10:31)
[2023-04-04] MEDS: PROTONIX IV 40 MG IV (10:31)
--- NOTE | 2023-04-04 10:44 | W.PN.CD ---
Today's Communication / Plan
-
We will sign off
He will see Dr. Swain in the office for routine followup
Impression / Plan
-
Background: 77M with ICM EF 30-35% admitted with dyspnea.
Dyspnea
- Last 2 right heart caths did not show significantly elevated filling pressures
- His recent dyspnea is not from heart failure, but he clearly has chronic heart failure
COPD
- abnormal PFT (bedside this admit)
- Severe emphysema suspected by CT scan this admit
- in 05/2017 DLCO was severely diminished
Cardiomyopathy, underlying CAD and valve disease
Chronic HFrEF (LVEF 30-35%)
- Continue BB
- other GDMT limited by CKD and BP
- At discharge use his usual regimen. Dry weight likely more than 171 pounds, lets use goal 171-174 pounds for now as goal dry weight
- his weight is below recent euvolemic RHC
CAD
-Inferior UT with PCI 2004 & CABG 2017 (LOGAN-LAD, VG-PDA)
-Cardiac catheterization - [place] vessel CAD with patent grafts - 10/07/22
-Stable without chest pain.
Permanent atrial fibrillation
-Remains rate controlled: continue coreg
-Oral Anticoagulation: Eliquis 5mg BID
-[id number]: score 4 (Heart failure, age 75 or more, Vascular disease)
Hx of NSVT, primary prevention ICD in place
Anemia, mild
CKD, acute on chronic
Former smoker, continued cessation recommended
Subjective: No CP/palps. Dyspnea stable
Data:
Right Heart Cath 03/21/2023: RA: 10; RV: 34/12; PA: 35/15; PCWP: 11 Oximetry: Ao 95%, PA 63%, cardiac output 4.1, cardiac index 2.1. 171 pounds
Echo 03/17/2023: LVEF 30-35%, stage II diastolic dysfxn, bio AVR OK (mean 16, no AI), mild MR, mild/mod TR, PASP 41 mmHg, RA 8 mmHg
Single chamber MDT ICD placed 09/2022
Cath 09/2022: Similar right heart cath results (RA 4, PCWP 10, PA 30/11. 80% mLAD, 100% mRCA. Patent LOGAN to LAD and rSVG to mRPDA
Physical Exam
Vital Signs/Labs
Vital Signs
Temp Pulse Resp BP Pulse Ox
97.8 F 70 14 115/52 95
04/04/23 07:00 04/04/23 08:59 04/04/23 07:58 04/04/23 08:59 04/04/23 07:58
04/03/23 04/04/23 04/05/23
06:59 06:59 06:59
Actual Weight 74.899 kg 76.34 kg
04/04/23 05:08
Magnesium 2.7 mg/dl (1.6-2.3) H 04/02/23 04:23
04/01/23
07:21
Nuv-R-Wfkqjrhymyo Pept 2580
Physical Exam
Constitutional: No acute distress
EENT: Anicteric
Cardiovascular: Rhythm & rate is regular and Pedal edema is absent
Respiratory: Respiratory effort normal and Lungs clear to auscul. (decrease breath sounds)
GI: Soft and Distention absent
Neuro/Psych: AO x 3
Data Reviewed
-
Date of Service: April 04, 2023
[2023-04-04 11:00] VITALS: BP 121/55
--- NOTE | 2023-04-04 11:08 | W.PN.PUL.V3 ---
Today's Communication / Plan
-
Wean oxygen
Increase activity
Observe off steroids
Observe off antibiotics
Diuretics per cardiology
Outpatient pulmonary follow-up
Assessment
-
Assessment:
Mr Tae Davison is a 77/M readm 04-01 with c/w recurrent dyspnea and orthopnea. Recently adm for CHF requiring milrinone and RHC 03/21/2023 (RA: 10; RV: 34/12; PA: 35/15; PCWP: 11 Oximetry: Ao 95%, PA 63%, cardiac output 4.1, cardiac index 2.1).
Seen by Cards, suspected currently dry and overdiuresed, rec rehydration given worsening renal failure
Chronic HYDE
COPD, no pulm follow up per patient and
HFrEF
Mild MR
Mild anemia
Increasing BNP
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
COPD, on levalbuterol HFA-FEV1 2.17-67%, no significant BD response, FVC 3.99-88%
History of lung cancer status post right upper lobectomy 2010
Advanced CHF, on furosemide, carvedilol
TTE 03-17-23: LVEF 30-35%, stage II DD, enlarged RV with normal systolic function
NSVT, ICD
Bicuspid AV, , s/p bioprosthetic AV 2017
CKD
AFib, on apixaban
H/o CVA
HTN
CAD, prior MA, PCI 2004, CABG 2017
L blindness
RLS on gabapentin
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 Did not need chemo-XRT
Thyroid cancer: R lobectomy August 2010, papillary carcinoma 6 mm
Past Surgical History: Reports Appendectomy, Bowel Resection (hernia repairs), Cardiac, Tonsillectomy and Urological
Former [id number]-year-quit 75 years old
Plan:
Respiratory status continues to improve
Supplemental oxygen as needed
Check rest and exercise oximetry prior to discharge-doubt will require home oxygen
Aspiration precautions
Symbicort continues-patient states he is on inhalers at home-not sure which ones
Nebulizers if needed-currently not bronchospastic
Incentive spirometry
Bedside spirometry summarized above
Observe off antibiotics
Cardiology following-correspondence reviewed
Right heart catheterization, left heart catheterization, and echocardiogram summarized below
DVT prophylaxis-on Eliquis
GI prophylaxis-on pantoprazole
Nutrition
Early mobilization/physical therapy
Outpatient pulm/sleep disorders evaluation-and sleep study scheduled reportedly, PFTs, inhalers, yearly low-dose lung cancer screening CT, etc.
Diagnostic tests:
CXR 04-01-23 c/w 03-14-23, improved pulm vasc congestion. L chest AICD
CT abd/p 05-16-22: few basilar lung cuts. posterior basilar emphysematous changes R>L
CTA April 2010 reported bilateral emphysema, 13 mm nodule at RUL (PET CT May 2010 with mild FDG avidity)
Right Heart Cath 03/21/2023:� RA: 10;� RV: 34/12;� PA: 35/15;� PCWP: 11� Oximetry: Ao 95%, PA 63%, cardiac output 4.1, cardiac index 2.1.���171 pounds
Echo 03/17/2023: LVEF 30-35%, stage II diastolic dysfxn, bio AVR OK (mean 16, no AI), mild MR, mild/mod TR, PASP 41 mmHg, RA 8 mmHg
Single chamber MDT ICD placed � 09/2022
Cath 09/2022: Similar right heart cath results (RA 4, PCWP 10, PA 30/11.� 80% mLAD, 100% mRCA. Patent LOGAN to LAD and rSVG to mRPDA
Subjective Data
-
Date of Service:
Date of Service: April 04, 2023
Chief Complaint: Pulmonary Follow Up and Dyspnea Follow Up
Subjective:
Denies any shortness of breath at rest, chest pain, chest tightness, abdominal pain, mucus
Review of Systems
General: Other (Per HPI)
Objective Data
Data Reviewed
Vital Signs / I&O:
Vital Signs
Temp Pulse Resp BP Pulse Ox
97.8 F 63 18 121/55 97
04/04/23 11:00 04/04/23 11:00 04/04/23 11:00 04/04/23 11:00 04/04/23 11:00
Intake and Output
04/03/23 04/04/23 04/05/23
06:59 06:59 06:59
Intake Total 1800 / 1800 3015 / 3015
Output Total 2099 / 2099 1740 / 1740 325 / 325
Balance -300 / -300 1275 / 1275 -325 / -325
SaO2: 97
Physical Exam
General: Respiratory Distress (n) and Comfortable
HEENT: Normocephalic and Moist Mucous Membranes
Cardiovascular: Regular Rhythm, Murmur (n) and Peripheral Edema (n)
Respiratory: Clear, Non-Labored Respirations and Stridor (n)
GI: Soft, Non Distended and Non Tender
Neurology: Awake, AO x 3 and No Motor Deficits
Skin: Dry, Good Color, Cyanosis (n) and Jaundice (n)
Labs/Micro/Reports
Lab Data
04/04/23 05:08
--- NOTE | 2023-04-04 12:17 | VNURNOTE ---
Home health liaison met with patient and to discuss resuming [facility] services. Patient asleep and visit scheduling/frequency, homebound status and pet policy discussed with spouse Kayleigh. Kayleigh understands home visits will be 1-2 times a week to
assess and teach medical management. Kayleigh aware a visiting nurse will contact them for start of care within 1-2 days after discharge from . [facility] Referral completed in care port
[2023-04-04] MEDS: NON-FORMULARY ITEM 1 UNIT BOTH EYES (13:22)
[2023-04-04] MEDS: FERRLECIT 110 MG IV (14:05)
[2023-04-04 15:00] VITALS: BP 102/82
--- NOTE | 2023-04-04 15:16 | CM ---
Discharge plan of care: Home with resumption of [facility], [facility]N, PT/OT. Not medically cleared for discharge as yet.
[2023-04-04] MEDS: MAGNESIUM OXIDE 500 MG PO (17:30)
[2023-04-04 19:32] LABS: Hematocrit 23.1 % (39.0-52.0); Hemoglobin 7.7 g/dL (13.0-18.0)
[2023-04-04 20:00] VITALS: BP 124/58
[2023-04-04] MEDS: LIPITOR 40 MG PO (21:45)
[2023-04-04] MEDS: NEURONTIN 300 MG PO (21:45)
[2023-04-04 23:10] VITALS: BP 105/42
[2023-04-05 04:29] VITALS: BP 105/53
[2023-04-05 06:00] VITALS: BMI 22.6
[2023-04-05 07:30] VITALS: BP 110/52
[2023-04-05] MEDS: SYMBICORT 80/4.5 MCG INHALER 2 PUFF INH ×2 (07:50→19:40)
[2023-04-05] MEDS: COREG 6.25 MG PO ×2 (08:09→20:04)
[2023-04-05] MEDS: KCL 20 MEQ PO (08:11)
[2023-04-05] MEDS: PROTONIX IV 40 MG IV (08:11)
[2023-04-05] MEDS: ELIQUIS 5 MG PO (08:11)
[2023-04-05] MEDS: NSS (PRESERVATIVE FREE) 10 ML IV (08:11)
[2023-04-05] MEDS: VITAMIN B-6 50 MG PO (08:11)
[2023-04-05] MEDS: TYLENOL 1000 MG PO ×2 (08:16→18:27)
[2023-04-05 08:26] LABS: % Basophils 0.6 % (0-2); % Eosinophils 1.8 % (0-6); % Immature Granulocytes 0.7 % (0-0.5); % Lymphocytes 21.4 % (20.5-51.1); % Monocytes 14.1 % (1.7-9.3); % Neutrophils 61.4 % (42.2-75.2); Absolute Basophils 0.1 10^3/uL (0-0.2); Absolute Eosinophils 0.2 10^3/uL (0-0.7); Absolute Immature Granulocytes 0.1 10^3/uL (0-0.05); Absolute Lymphocytes 1.8 10^3/uL (1.2-3.4); Absolute Monocytes 1.2 10^3/uL (0.1-0.6); Absolute Neutrophils 5.3 10^3/uL (1.4-6.5); Hematocrit 22.9 % (39.0-52.0); Hemoglobin 7.6 g/dL (13.0-18.0); Mean Corp Hgb Conc. 33.2 g/dL (33.0-37.0); Mean Corpuscular Hgb 27.8 pg (27.0-31.0); Mean Corpuscular Volume 83.9 fL (80.0-94.0); Mean Platelet Volume 10.6 fL (7.4-10.4); Nucleated Red Blood Cells % 1.4 % (-); Platelet Count 183 10^3/uL (130-400); Red Blood Cell Count 2.73 10^6/uL (4.70-6.10); Red Cell Dist. Width 20.4 % (11.5-14.5); White Blood Cell Count 8.6 10^3/uL (4.8-10.8)
--- NOTE | 2023-04-05 08:52 | W.PN.HOSP.TC ---
Addendum entered and electronically signed by Wiley Pruitt MD 04/05/23 15:10:
Addendum
Rectal exam + heme test ( strongly positive)
Hold Eliquis
Consent for blood is done
Consult GI, appreciate help
d/w pt, at bed side
End
Original Note:
Today's Communication/Plan
-
.
Assessment / Plan
Assessment / Plan
Physical exam:
General: Appears Chronically Ill
HEENT: Normocephalic and Anicteric. Left eye is blind.
Respiratory: No rales, no wheezes heard
Cardiac: S1/S2
GI: Soft, non tender.
: clear urine
Musculoskeletal: trace edema
Neuro: AO x 3
Psych: Calm
# Acute respiratory distress, no hypoxia due to underlying emphysema/ COPD without convincing evidence of flare (no cough, increase sputum production, fever/chills).
on levalbuterol HFA-FEV1 2.17-67%, no significant BD response, FVC 3.99-88%
He denies cough or sob this morning. Lung no rales or wheezes.
Former smoker with hx of Lung cancer status post right upper lobe lobectomy
- CXR no evidence of PNA
- monitor and continue home nebs
Not on LAMA or ICS at home. Symbicort added; on dc send Advair as its covered by insurance
Chest CT 04/02 with moderate to severe emphysema. Right upper lobe lobectomy
Spirometry 04/04 with moderate obstruction and marginal response to bronchodilator challenge
Home O2 evaluation upon dc
Appreciate pulmonary input
# chronic HFrEF.
Hx of Cardiomyopathy with ICD
Moderate mitral regurgitation/Moderate tricuspid regurgitation/Moderate pulmonary hypertension
- recent hospitalization for 10 days; dc 1 week ago. was on Milrinone and had RHC. Echo: (LVEF 30-35%)
- now admitting with concern for recurrent CHF with orthopnea, evaluated by cardiology who does not think patient is in acute CHF
- Lasix changed to PO however , held 2/2 over diuresis
- GDMT: Coreg
Appreciate cardiology help
# Permanent atrial fibrillation
no palpitation
c/w rate control with Coreg. Eliquis 5mg BID
#CKD stage 3b, worsened recently from cardio-renal state
Cr 2.1
No flank pain or hematuria.
#Recent confusion/tremors suspect mild toxic metabolic encephalopathy
- patient saw Neuro last admit, no specific recommendations
- head CT showed: No acute intracranial abnormality noted. Moderate atrophy. Progressed. Old left occipital lobe infarct. Stable
- suspect possible underlying cognitive impairment dementia which can be formally tested outpatient. Monitor for in-hospital sundowning.
#Mild hypercalcemia
improving
#Anemia of chronic disease with iron deficiency anemia
S/p 1 unit of PRBC 03/17
Now on IV iron.
- recent lab workup normal, no evidence of GI bleeding
#Coronary artery disease status post PCI in 2004/CABG in 2018--Continue statin
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
#Thyroid cancer status post thyroidectomy
#Restless leg syndrome--Continue gabapentin
#DVT ppx: Eliquis
Code: Full
Total time spent to see the patient, examine the patient on the floor, review data and lab results, discuss treatment plan with patient, nursing staff around 55 minutes
Anticipated Discharge: 24 - 48 hours
Subjective/Interval History
-
Date of Service: April 05, 2023
He feels tired
No chest pain or sob
Objective Data
-
Labs:
Laboratory Results
04/05/23
07:27
WBC 8.6
Hgb 7.6 L
Hct 22.9 L
Plt Count 183 D
Sodium Pending
Potassium Pending
Chloride Pending
Carbon Dioxide Pending
BUN Pending
Creatinine Pending
Glucose Pending
Calcium Pending
Vital Signs:
Vital Signs
Temp Pulse Resp BP Pulse Ox
98.0 F 67 16 110/52 95
04/05/23 07:30 04/05/23 08:09 04/05/23 07:51 04/05/23 08:09 04/05/23 07:51
I&O
04/04/23 04/05/23 04/06/23
06:59 06:59 06:59
Intake Total 3015 / 3015 1440 / 1440
Output Total 1740 / 1740 1210 / 1210
Balance 1275 / 1275 230 / 230
[2023-04-05 09:01] LABS: Blood Urea Nitrogen 72 mg/dl (9-20); Calcium 9.7 mg/dl (8.4-10.2); Carbon Dioxide 26 mmol/L (22-30); Chloride 105 mmol/L (98-107); Estimated Creatinine Clearance 35 ml/min; Glucose 122 mg/dl (70-99); Sodium 138 mmol/L (135-145); eGFR 36.11
[2023-04-05 11:45] VITALS: BP 104/50
[2023-04-05] MEDS: FERRLECIT 110 MG IV (14:11)
--- NOTE | 2023-04-05 14:26 | W.PN.PUL3 ---
Today's Communication / Plan
-
Chest exam is clear
Ambulatory saturation normal
Continue maintenance inhaler therapy
Recommend pulmonary follow-up as outpatient, information left in chart
We will sign off. Please call with questions
Assessment
-
Mr Tae Davison is a 77/M readm 04-01 with c/w recurrent dyspnea and orthopnea. Recently adm for CHF requiring milrinone and RHC 03/21/2023 (RA: 10; RV: 34/12; PA: 35/15; PCWP: 11 Oximetry: Ao 95%, PA 63%, cardiac output 4.1, cardiac index 2.1).
Seen by Cards, suspected currently dry and overdiuresed, rec rehydration given worsening renal failure
Chronic HYDE
COPD, no pulm follow up per patient and
HFrEF
Mild MR
Mild anemia
Increasing BNP
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
COPD, on levalbuterol HFA-FEV1 2.17-67%, no significant BD response, FVC 3.99-88%
History of lung cancer status post right upper lobectomy 2010
Advanced CHF, on furosemide, carvedilol
TTE 03-17-23: LVEF 30-35%, stage II DD, enlarged RV with normal systolic function
NSVT, ICD
Bicuspid AV, , s/p bioprosthetic AV 2017
CKD
AFib, on apixaban
H/o CVA
HTN
CAD, prior [place], PCI 2004, CABG 2017
L blindness
RLS on gabapentin
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 Did not need chemo-XRT
Thyroid cancer: R lobectomy August 2010, papillary carcinoma 6 mm
Past Surgical History: Reports Appendectomy, Bowel Resection (hernia repairs), Cardiac, Tonsillectomy and Urological
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
Plan:
At this time from a pulmonary standpoint, patient appears to be improved. Currently on room air
Ambulated in the room 350 feet without desaturation
Chest exam is clear
Moving forward
Continue with maintenance inhaler therapy. Currently on Symbicort.
Records suggest patient is on Advair as outpatient but would resume outpatient regimen
Regardless, should be on maintenance inhaler therapy (Symbicort, Advair, or Breo)
No indication for home oxygen at this time based on current ambulatory saturation which is normal
Bedside spirometry noted
Observe off antibiotics
Cardiology following-correspondence reviewed
Right heart catheterization, left heart catheterization, and echocardiogram summarized below
DVT prophylaxis-on Eliquis
GI prophylaxis-on pantoprazole
Nutrition
Early mobilization/physical therapy
Outpatient pulm/sleep disorders evaluation-and sleep study scheduled reportedly, PFTs, inhalers, yearly low-dose lung cancer screening CT, etc.
We will sign off. Please call with questions
Diagnostic tests:
CXR 04-01-23 c/w 03-14-23, improved pulm vasc congestion. L chest AICD
CT abd/p 05-16-22: few basilar lung cuts. posterior basilar emphysematous changes R>L
CTA April 2010 reported bilateral emphysema, 13 mm nodule at RUL (PET CT May 2010 with mild FDG avidity)
Right Heart Cath 03/21/2023:� RA: 10;� RV: 34/12;� PA: 35/15;� PCWP: 11� Oximetry: Ao 95%, PA 63%, cardiac output 4.1, cardiac index 2.1.���171 pounds
Echo 03/17/2023: LVEF 30-35%, stage II diastolic dysfxn, bio AVR OK (mean 16, no AI), mild MR, mild/mod TR, PASP 41 mmHg, RA 8 mmHg
Single chamber MDT ICD placed � 09/2022
Cath 09/2022: Similar right heart cath results (RA 4, PCWP 10, PA 30/11.� 80% mLAD, 100% mRCA. Patent LOGAN to LAD and rSVG to mRPDA
Subjective Data
-
Date of Service:
Date of Service: April 05, 2023
Chief Complaint: Pulmonary Follow Up and Dyspnea Follow Up
Subjective:
Patient seen and examined earlier this morning. Lying flat, on room air. Feels breathing has improved. Denies chest pain, nausea, abdominal pain
Objective Data
Data Reviewed
Vital Signs / I&O / Oxygen:
Vital Signs
Temp Pulse Resp BP Pulse Ox
97.5 F 68 16 104/50 98
04/05/23 11:45 04/05/23 11:45 04/05/23 11:45 04/05/23 11:45 04/05/23 11:45
Intake and Output
04/04/23 04/05/23 04/06/23
06:59 06:59 06:59
Intake Total 3015 / 3015 1440 / 1440
Output Total 1740 / 1740 1210 / 1210
Balance 1275 / 1275 230 / 230
SaO2 98
Physical Exam
General: Comfortable
HEENT: Normocephalic, Moist Mucous Membranes and Other (Left eye changes)
Cardiovascular: Regular Rhythm, Murmur (n) and Peripheral Edema (n)
Respiratory: Clear, Wheeze (n), Crackles (n), Rhonchi (n), Non-Labored Respirations and Stridor (n)
GI: Soft, Non Distended and Non Tender
Neurology: Awake, Alert and No Motor Deficits
Skin: Good Color, Cyanosis (n) and Jaundice (n)
Labs/Micro/Reports
Lab Data
04/05/23 07:27
04/05/23 07:27
--- NOTE | 2023-04-05 15:59 | CM ---
IMM signed and placed on the chart.
[2023-04-05 16:15] VITALS: BP 121/52
[2023-04-05] MEDS: SENOKOT-S 1 TABLET PO (17:02)
[2023-04-05] MEDS: MAGNESIUM OXIDE 500 MG PO (17:02)
[2023-04-05] MEDS: XOPENEX 1.25 MG INHALANT SOLUTION INH (19:40)
[2023-04-05 20:00] VITALS: BP 119/52
[2023-04-05 20:33] VITALS: BP 108/51
[2023-04-05] MEDS: NEURONTIN 300 MG PO (21:07)
[2023-04-05] MEDS: LIPITOR 40 MG PO (21:07)
[2023-04-06] VITALS (9 sets, daily range): BP systolic 106–136; BP diastolic 41–70; BMI 22.8
[2023-04-06 07:09] LABS: Hematocrit 22.4 % (39.0-52.0); Hemoglobin 7.3 g/dL (13.0-18.0); Mean Corp Hgb Conc. 32.6 g/dL (33.0-37.0); Mean Corpuscular Hgb 28.2 pg (27.0-31.0); Mean Corpuscular Volume 86.5 fL (80.0-94.0); Mean Platelet Volume 10.1 fL (7.4-10.4); Platelet Count 202 10^3/uL (130-400); Red Blood Cell Count 2.59 10^6/uL (4.70-6.10); Red Cell Dist. Width 21.3 % (11.5-14.5); White Blood Cell Count 7.6 10^3/uL (4.8-10.8)
[2023-04-06 07:20] LABS: Blood Urea Nitrogen 49 mg/dl (9-20); Calcium 9.8 mg/dl (8.4-10.2); Carbon Dioxide 24 mmol/L (22-30); Chloride 108 mmol/L (98-107); Estimated Creatinine Clearance 38 ml/min; Glucose 125 mg/dl (70-99); Potassium 4.4 mmol/L (3.5-5.1); Sodium 138 mmol/L (135-145); eGFR 38.53
[2023-04-06] MEDS: SYMBICORT 80/4.5 MCG INHALER 2 PUFF INH ×2 (07:27→19:56)
[2023-04-06] MEDS: TYLENOL 1000 MG PO ×2 (08:07→20:10)
[2023-04-06] MEDS: KCL 20 MEQ PO (08:08)
[2023-04-06] MEDS: VITAMIN B-6 50 MG PO (08:08)
[2023-04-06] MEDS: DULCOLAX 10 MG PO (08:08)
[2023-04-06] MEDS: COREG 6.25 MG PO ×2 (08:09→20:12)
--- NOTE | 2023-04-06 09:17 | W.PN.HOSP.TC ---
Today's Communication/Plan
-
.
Assessment / Plan
Assessment / Plan
Physical exam:
General: Appears Chronically Ill
HEENT: Normocephalic and Anicteric. Left eye is blind.
Respiratory: No rales, no wheezes heard
Cardiac: S1/S2
GI: Soft, non tender.
: clear urine
Musculoskeletal: trace edema
Neuro: AO x 3
Psych: Calm
# Acute on chronic blood loss anemia. Rectal exam on 04/05 strongly positive heme test with dark stool noted.
HGB dropped from 11 to 7 during this admission and last admission he needed IV iron and blood transfusion.S/p 1 unit of PRBC 03/17
Patient reports severe fatigue. Will give one unit of RBC today. Consent signed.
No hx of colon polyp/ cancer/IBD/Hemorrhoids.
No abd pain or nausea
IV Iron ( already had doses last admission)
d/w GI doctor. Also cardiology doctor was notified about holding Eliquis.
Appreciate GI input
# Constipation
Added Dulcolax.
# Acute respiratory distress, no hypoxia due to underlying emphysema/ COPD without convincing evidence of flare (no cough, increase sputum production, fever/chills).
on levalbuterol HFA-FEV1 2.17-67%, no significant BD response, FVC 3.99-88%
He denies cough or sob this morning. Lung no rales or wheezes.
Former smoker with hx of Lung cancer status post right upper lobe lobectomy
- CXR no evidence of PNA
- monitor and continue home nebs
Not on LAMA or ICS at home. Symbicort added; on dc send Advair as its covered by insurance
Chest CT 04/02 with moderate to severe emphysema. Right upper lobe lobectomy
Spirometry 04/04 with moderate obstruction and marginal response to bronchodilator challenge
Home O2 evaluation upon dc
Appreciate pulmonary input
# chronic HFrEF.
Hx of Cardiomyopathy with ICD
Moderate mitral regurgitation/Moderate tricuspid regurgitation/Moderate pulmonary hypertension
- recent hospitalization for 10 days; dc 1 week ago. was on Milrinone and had RHC. Echo: (LVEF 30-35%)
- now admitting with concern for recurrent CHF with orthopnea, evaluated by cardiology who does not think patient is in acute CHF
- Lasix changed to PO however , held 2/2 over diuresis. Might need a low dose, cardiology to follow.
- GDMT: Coreg
Appreciate cardiology help
# Permanent atrial fibrillation
no palpitation
c/w rate control with Coreg. Eliquis 5mg BID( on hold)
#CKD stage 3b, worsened recently from cardio-renal state
Cr 1.8 today
No flank pain or hematuria.
#Recent confusion/tremors suspect mild toxic metabolic encephalopathy
- patient saw Neuro last admit, no specific recommendations
- head CT showed: No acute intracranial abnormality noted. Moderate atrophy. Progressed. Old left occipital lobe infarct. Stable
- suspect possible underlying cognitive impairment dementia which can be formally tested outpatient. Monitor for in-hospital sundowning.
#Mild hypercalcemia
resolved.
#Coronary artery disease status post PCI in 2004/CABG in 2018--Continue statin
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
#Thyroid cancer status post thyroidectomy
#Restless leg syndrome--Continue gabapentin
#DVT ppx: Eliquis
Code: Full
Total time spent to see the patient, examine the patient on the floor, review data and lab results, discuss treatment plan with patient, nursing staff around 65 minutes
Anticipated Discharge: > 48 hours
Subjective/Interval History
-
Date of Service: April 06, 2023
No chest pain
No fevers
No sob
No abd pain
has headache
Objective Data
-
Labs:
Laboratory Results
04/06/23
06:57
WBC 7.6
Hgb 7.3 L
Hct 22.4 L
Plt Count 202
Sodium 138
Potassium 4.4
Chloride 108 H
Carbon Dioxide 24
BUN 49 H
Creatinine 1.8 H
Glucose 125 H
Calcium 9.8
Vital Signs:
Vital Signs
Temp Pulse Resp BP Pulse Ox
98.1 F 67 16 125/58 96
04/06/23 07:00 04/06/23 07:28 04/06/23 07:28 04/06/23 07:00 04/06/23 07:28
I&O
04/05/23 04/06/23 04/07/23
06:59 06:59 06:59
Intake Total 1440 / 1440 480 / 480 480 / 480
Output Total 1210 / 1210 700 / 700 200 / 200
Balance 230 / 230 -220 / -220 280 / 280
--- NOTE | 2023-04-06 10:23 | CON.GI ---
Consultation
-
Date/Time Consultation Requested: 04/06/2023
Date/Time Consultation Performed: 04/06/2023
Requesting Provider: Dr. Pruitt
Performing Provider: Dr. Oquendo
Reason for Consultation: GI bleeding
Medical History
Chief Complaint / HPI
Chief Complaint: Dyspnea
History of Present Illness:
Mr. Davison is a 77-year-old male with history of permanent atrial fibrillation on Eliquis -which has been new over the past few months, CKD 3, history of TAVR, chronic CHF and moderate pulmonary hypertension readmitted on 01 April with recurrent
dyspnea and orthopnea admitted for CHF requiring milrinone and a right heart catheterization. Consults have included cardiology and pulmonary. There was concern for overdiuresis and worsening renal failure.
GI was called because of a drop in hemoglobin from 11 his baseline down to sevens. He was getting IV iron. Last admission received a unit of blood on 17 March. The hospitalist did a rectal exam on 04/05/2023 showing black formed stool.
His baseline hemoglobin appears to be 10-11. On March 15 he was 8.6 and given a unit of blood and IV iron. Discharged on 03/25 with a hemoglobin of 11. Hemoglobin yesterday on 04/05 was 7.6 and today 7.3.
He is not on a PPI at home or inpatient. Currently getting a unit of blood.
He feels fatigue but has nothing new. He denies any dysphagia, has intermittent heartburn but does not take any medications. Previously was taking significant ibuprofen but stopped about 3 weeks ago. Denies any chronic nausea vomiting abdominal
pain. He does have significant constipation and moves his bowels about once a week. He has not had any significant bowel movements here and rectal exam showed black formed stool that was heme positive.
Patient states he has never had any GI evaluation other than in 1984 when he had hematemesis and was told he had an ulcer.
Past Medical History
Past Medical History: Other (Chronic dyspnea on exertion, COPD, heart failure, mild anemia, CKD 3, COPD, former smoker, bicuspid aortic valve, bioprosthetic valve in 2018, atrial fibrillation on Eliquis, history of stroke, left eye blindness, right
upper lobe lung cancer surgically resected, thyroid cancer status post resection)
Past Surgical History: Other (ICD placement, appendectomy, hernia repair, partial thyroidectomy, left upper lobectomy)
Social History
Tobacco: Former Smoker
Alcohol: Occasional
Drug: None
Personal:
Living: With Family
Employment: Retired
Family History
Family History: Reviewed & Not Pertinent
Allergies / Home Medications
Allergy/AdvReac Type Severity Reaction Status Date / Time
codeine [Codeine] Allergy nausea Verified 04/01/23 06:48
vomiting
Penicillins Allergy Hives, Verified 04/01/23 06:48
swelling,
tolerated
ceftriaxone
Feb 2020
Medication Instructions Recorded
atorvastatin 40 mg tablet 40 mg PO HS High cholesterol 04/25/22
carvedilol 6.25 mg tablet (Coreg) 6.25 mg PO Q12 blood pressure / 03/14/23
heart condition
gabapentin 300 mg capsule 300 mg PO HS Pain 03/14/23
levalbuterol tartrate 45 2 inh inhalation R BID 03/14/23
mcg/actuation aerosol inhaler Lung/Breathing Issues
(Xopenex HFA)
magnesium oxide 400 mg PO QPM Electrolyte Repletion 03/14/23
potassium chloride 20 mEq 20 meq PO DAILY Electrolyte 03/14/23
tablet,extended release Repletion
acetaminophen 500 mg tablet 1,000 mg PO Q6H PRN mild pain 04/01/23
(Tylenol Extra Strength)
apixaban 5 mg tablet (Eliquis) 5 mg PO BID Blood clot 04/01/23
prevention/tx
furosemide 40 mg tablet 40 mg PO BID@0800,1600 Fluid 04/01/23
Retention/Swelling
levalbuterol tartrate 45 2 puff inhalation R Q4HPRN PRN 04/01/23
mcg/actuation aerosol inhaler shortness of breath
pyridoxine (vitamin B6) 50 mg 50 mg PO DAILY Supplement 04/01/23
tablet (Vitamin B-6)
sennosides 8.6 mg-docusate sodium 1 tab PO BIDPRN PRN constipation 04/01/23
50 mg tablet (Stool
Softener-Stimulant Laxative)
Review of Systems
-
History Source: Patient and Family
Respiratory: Reports Other (Chronic dyspnea on exertion)
Cardiac: Reports No Symptoms
Abdomen/GI: Reports Constipated and Black Stools
Neurological: Reports No Symptoms
Endocrine: Reports No Symptoms
Vital Signs
Temp Pulse Resp BP Pulse Ox
98.1 F 67 16 125/58 96
04/06/23 07:00 04/06/23 07:28 04/06/23 07:28 04/06/23 07:00 04/06/23 07:28
Physical Exam
Exam
General: Other (Chronically ill-appearing)
HEENT: Anicteric (Left eye blind)
Respiratory: Clear
GI: Soft, Non Tender and Non Distended
Neuro: AO x 3
Psych: Calm
Results
WBC 7.6 10^3/uL (4.8-10.8) 04/06/23 06:57
Hgb 7.3 g/dL (13.0-18.0) L 04/06/23 06:57
Hct 22.4 % (39.0-52.0) L 04/06/23 06:57
MCV 86.5 fL (80.0-94.0) 04/06/23 06:57
Plt Count 202 10^3/uL (130-400) 04/06/23 06:57
Absolute Neuts (auto) 5.3 10^3/uL (1.4-6.5) 04/05/23 07:27
Sodium 138 mmol/L (135-145) 04/06/23 06:57
Potassium 4.4 mmol/L (3.5-5.1) 04/06/23 06:57
Chloride 108 mmol/L (98-107) H 04/06/23 06:57
Carbon Dioxide 24 mmol/L (22-30) 04/06/23 06:57
BUN 49 mg/dl (9-20) H 04/06/23 06:57
Creatinine 1.8 mg/dL (0.7-1.3) H 04/06/23 06:57
Calcium 9.8 mg/dl (8.4-10.2) 04/06/23 06:57
Total Bilirubin 0.9 mg/dl (0.2-1.3) 04/01/23 07:21
AST 34 U/L (17-59) 04/01/23 07:21
ALT 32 U/L (0-50) 04/01/23 07:21
Alkaline Phosphatase 131 U/L (38-126) H 04/01/23 07:21
Diagnostic Image Results:
04/02/2023: Severe emphysema and prominent bullous changes
04/01/2023, chest x-ray no acute cardiopulmonary process. Left chest wall cardiac device with lead intact
To 724, abdominal ultrasound limited just for ascites which was negative
Prior GI Procedures: none
EGD:
Colonoscopy:
Assessment / Plan
-
Tae is a 77-year-old male with multiple comorbidities including CHF, permanent atrial fibrillation on Eliquis, ICD placement, severe emphysema and COPD, recent right heart cath, CAD status post CABG returns to the hospital for the second time this
month with dyspnea on exertion now with drop in hemoglobin from 11 down to 7.3 with black heme positive stool on rectal exam now getting 1 unit of blood
# GI bleeding -black formed stool
--- Significant drop in hemoglobin requiring transfusion
-- Patient is hemodynamically stable
--- He is not on a PPI. Will start
-- Patient was previously taking significant NSAIDs, he has no GI symptoms other than chronic constipation
--- No previous GI workup or GI scopes
--- Last Eliquis dose was 04/05/23 AM
--- We will proceed to endoscopy either Friday or Friday pending schedule
-- Discussed with and patient
Total Time Spent with Patient (in minutes): 35
Data Reviewed
-
CT Scan: Report Reviewed by me
Ultrasound: Report Reviewed by me
Old Records: Reviewed
Time spent with patient (in minutes): 55
-
-
Thank you for consultation and allowing me to participate in the patient's care. Please call the iron handler GI physician during the after hours with any questions or concerns.
[2023-04-06] MEDS: PROTONIX IV 80 MG IV (13:20)
[2023-04-06] MEDS: NSS (PRESERVATIVE FREE) 20 ML IV (13:20)
[2023-04-06] MEDS: PROTONIX 100 IV ×2 (13:27→21:29)
[2023-04-06] MEDS: FERRLECIT 110 MG IV (13:33)
[2023-04-06] MEDS: MAGNESIUM OXIDE 500 MG PO (17:57)
[2023-04-06] MEDS: NEURONTIN 300 MG PO (21:29)
[2023-04-06] MEDS: LIPITOR 40 MG PO (21:30)
[2023-04-07] VITALS (10 sets, daily range): BP systolic 13–122; BP diastolic 49–62; BMI 22.7
[2023-04-07 06:01] LABS: Hematocrit 25.1 % (39.0-52.0); Hemoglobin 8.2 g/dL (13.0-18.0); Mean Corp Hgb Conc. 32.7 g/dL (33.0-37.0); Mean Corpuscular Hgb 28.8 pg (27.0-31.0); Mean Corpuscular Volume 88.1 fL (80.0-94.0); Mean Platelet Volume 9.8 fL (7.4-10.4); Platelet Count 192 10^3/uL (130-400); Red Blood Cell Count 2.85 10^6/uL (4.70-6.10); Red Cell Dist. Width 21.6 % (11.5-14.5); White Blood Cell Count 8.4 10^3/uL (4.8-10.8)
[2023-04-07 06:28] LABS: Blood Urea Nitrogen 34 mg/dl (9-20); Calcium 9.6 mg/dl (8.4-10.2); Carbon Dioxide 22 mmol/L (22-30); Chloride 112 mmol/L (98-107); Estimated Creatinine Clearance 37 ml/min; Glucose 101 mg/dl (70-99); Potassium 4.5 mmol/L (3.5-5.1); Sodium 137 mmol/L (135-145); eGFR 38.53
[2023-04-07] MEDS: PROTONIX 100 IV (07:26)
[2023-04-07] MEDS: SYMBICORT 80/4.5 MCG INHALER 2 PUFF INH ×2 (07:51→19:54)
[2023-04-07] MEDS: VITAMIN B-6 50 MG PO (08:10)
[2023-04-07] MEDS: COREG 6.25 MG PO ×2 (08:10→20:27)
[2023-04-07] MEDS: DULCOLAX 10 MG PO (08:10)
[2023-04-07] MEDS: KCL 20 MEQ PO (08:11)
[2023-04-07] MEDS: TYLENOL 1000 MG PO ×3 (08:24→23:21)
--- NOTE | 2023-04-07 11:09 | W.PN.HOSP.TC ---
Today's Communication/Plan
-
Monitor vital signs and see plan
Continue to hold Eliquis
EGD today
Continue PPI
Monitor hemoglobin
Monitor volume status, use Lasix as needed for now
Assessment / Plan
Assessment / Plan
Physical exam:
General: Appears Chronically Ill
HEENT: Normocephalic and Anicteric. Left eye is blind.
Respiratory: No rales, no wheezes heard
Cardiac: S1/S2
GI: Soft, non tender.
: clear urine
Musculoskeletal: trace edema
Neuro: AO x 3
Psych: Calm
# Acute on chronic blood loss anemia. Rectal exam on 04/05 strongly positive heme test with dark stool noted.
HGB dropped from 11 to 7 during this admission and last admission he needed IV iron and blood transfusion.S/p 1 unit of PRBC 03/17
s/p 1 unit prbc 04/06; hgb 8.2
Patient reports severe fatigue. Will give one unit of RBC today. Consent signed.
No hx of colon polyp/ cancer/IBD/Hemorrhoids.
No abd pain or nausea
IV Iron ( already had doses last admission)
d/w GI doctor. Also cardiology doctor was notified about holding Eliquis.
Appreciate GI input, plan for EGD 04/01
# Constipation
Added Dulcolax.
# Acute respiratory distress, no hypoxia due to underlying emphysema/ COPD without convincing evidence of flare (no cough, increase sputum production, fever/chills).
on levalbuterol HFA-FEV1 2.17-67%, no significant BD response, FVC 3.99-88%
He denies cough or sob this morning. Lung no rales or wheezes.
Former smoker with hx of Lung cancer status post right upper lobe lobectomy
- CXR no evidence of PNA
- monitor and continue home nebs
Not on LAMA or ICS at home. Symbicort added; on dc send Advair as its covered by insurance
Chest CT 04/02 with moderate to severe emphysema. Right upper lobe lobectomy
Spirometry 04/04 with moderate obstruction and marginal response to bronchodilator challenge
Home O2 evaluation upon dc
Appreciate pulmonary input
# chronic HFrEF.
Hx of Cardiomyopathy with ICD
Moderate mitral regurgitation/Moderate tricuspid regurgitation/Moderate pulmonary hypertension
- recent hospitalization for 10 days; dc 1 week ago. was on Milrinone and had RHC. Echo: (LVEF 30-35%)
- now admitting with concern for recurrent CHF with orthopnea, evaluated by cardiology who does not think patient is in acute CHF
- Lasix changed to PO however , held 2/2 over diuresis. At discharge use his usual regimen. Dry weight likely more than 171 pounds, lets use goal 171-174 pounds for now as goal dry weight
- GDMT: Coreg
Appreciate cardiology help
# Permanent atrial fibrillation
no palpitation
c/w rate control with Coreg. Eliquis 5mg BID( on hold)
#CKD stage 3b, worsened recently from cardio-renal state
Cr 1.8 today
No flank pain or hematuria.
#Recent confusion/tremors suspect mild toxic metabolic encephalopathy
- patient saw Neuro last admit, no specific recommendations
- head CT showed: No acute intracranial abnormality noted. Moderate atrophy. Progressed. Old left occipital lobe infarct. Stable
- suspect possible underlying cognitive impairment dementia which can be formally tested outpatient. Monitor for in-hospital sundowning.
#Mild hypercalcemia
resolved.
#Coronary artery disease status post PCI in 2004/CABG in 2018--Continue statin
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
#Thyroid cancer status post thyroidectomy
#Restless leg syndrome--Continue gabapentin
#DVT ppx: Eliquis
Code: Full
Total time spent to see the patient, examine the patient on the floor, review data and lab results, discuss treatment plan with patient, nursing staff around 52 minutes
Anticipated Discharge: 24 - 48 hours
Subjective/Interval History
-
Date of Service: April 07, 2023
Denies abdominal pain
Objective Data
-
Labs:
Laboratory Results
04/07/23
05:30
WBC 8.4
Hgb 8.2 L
Hct 25.1 L
Plt Count 192
Sodium 137
Potassium 4.5
Chloride 112 H
Carbon Dioxide 22
BUN 34 H
Creatinine 1.8 H
Glucose 101 H
Calcium 9.6
Vital Signs:
Vital Signs
Temp Pulse Resp BP Pulse Ox
98.3 F 68 18 120/61 97
04/07/23 07:05 04/07/23 08:10 04/07/23 08:02 04/07/23 08:10 04/07/23 09:57
I&O
04/06/23 04/07/23 04/08/23
06:59 06:59 06:59
Intake Total 480 / 480 1536 / 1536
Output Total 700 / 700 1075 / 1075
Balance -220 / -220 461 / 461
[2023-04-07] MEDS: FERRLECIT 110 MG IV (13:00)
[2023-04-07] MEDS: PROTONIX 40 MG PO ×2 (13:00→20:27)
--- NOTE | 2023-04-07 13:57 | PN.CDI ---
CDI
- -
CDI:
Physician Documentation Request
Admit Date: 04/01/23 12:49
Dear Doctor Rinku,
Patient admitted for respiratory distress.
04/06 GI: 'GI bleeding -black formed stool--- Significant drop in hemoglobin requiring transfusion'
04/07 Hospitalist PN: 'Acute on chronic blood loss anemia. Rectal exam on 04/05 strongly positive heme test with dark stool noted...HGB dropped from 11 to 7 during this admission...s/p 1 unit prbc 04/06...Also cardiology doctor was notified about
holding Eliquis.'
Please clarify the relationship between these conditions:
Yes, GI bleed is related to/exacerbated by Eliquis.
No, GI bleed is not related to/exacerbated by Eliquis.
Unable to determine
Use of terms such as suspected, likely, concern for, or probable (associated with a specific diagnosis that is being evaluated, monitored, or treated as if it exists) are acceptable and can be coded in the inpatient setting, when documented at the
time of discharge.
Thank you,
Tran South RN, BSN
CDI Specialist
Available via [facility] text
Please use your independent medical judgment in providing your response.
--- NOTE | 2023-04-07 14:19 | PTCARENOTE ---
Addendum entered by Анна Osorio RN 04/07/23 14:24:
Bowel movement not able to be heme tested. Per GI, heme test not necessary at this time. Repeat hgb to be ordered for this afternoon.
Original Note:
Patient with episode of dark green/black liquid bowel movement on floor in bathroom; patient s/p EGD earlier in AM. Hygiene provided to patient, brief in place, patient assisted back to bed. Patient states no concerns at this time. MD and GI made
aware.
[2023-04-07 15:33] LABS: Hemoglobin 8.3 g/dL (13.0-18.0)
--- NOTE | 2023-04-07 16:21 | PTOTSP ---
Pt declined PT today and says he has been independently ambulatory in room without AD. PT will sign off. Please reconsult if change in function.
[2023-04-07] MEDS: MAGNESIUM OXIDE 500 MG PO (17:15)
--- NOTE | 2023-04-07 18:06 | CM ---
EGD completed today. Discharge plan of care: Home with resumption of [facility] services. Will continue to follow and adapt plan if needed.
[2023-04-07] MEDS: LIPITOR 40 MG PO (21:08)
[2023-04-07] MEDS: NEURONTIN 300 MG PO (21:08)
[2023-04-08] VITALS (8 sets, daily range): BP systolic 104–118; BP diastolic 45–61; PULSE 66; O2SAT 98; BMI 22.7
[2023-04-08 04:56] LABS: % Basophils 0.5 % (0-2); % Eosinophils 3.2 % (0-6); % Immature Granulocytes 0.5 % (0-0.5); % Lymphocytes 17.3 % (20.5-51.1); % Monocytes 8.6 % (1.7-9.3); % Neutrophils 69.9 % (42.2-75.2); Absolute Eosinophils 0.3 10^3/uL (0-0.7); Absolute Lymphocytes 1.4 10^3/uL (1.2-3.4); Absolute Monocytes 0.7 10^3/uL (0.1-0.6); Absolute Neutrophils 5.4 10^3/uL (1.4-6.5); Hematocrit 24.9 % (39.0-52.0); Hemoglobin 8.2 g/dL (13.0-18.0); Mean Corp Hgb Conc. 32.9 g/dL (33.0-37.0); Mean Corpuscular Hgb 29.2 pg (27.0-31.0); Mean Corpuscular Volume 88.6 fL (80.0-94.0); Mean Platelet Volume 9.8 fL (7.4-10.4); Nucleated Red Blood Cells % 0.6 % (-); Platelet Count 189 10^3/uL (130-400); Red Blood Cell Count 2.81 10^6/uL (4.70-6.10); Red Cell Dist. Width 22.4 % (11.5-14.5); White Blood Cell Count 7.8 10^3/uL (4.8-10.8)
[2023-04-08 05:17] LABS: Blood Urea Nitrogen 26 mg/dl (9-20); Calcium 9.7 mg/dl (8.4-10.2); Carbon Dioxide 21 mmol/L (22-30); Chloride 114 mmol/L (98-107); Estimated Creatinine Clearance 37 ml/min; Glucose 98 mg/dl (70-99); Potassium 4.5 mmol/L (3.5-5.1); Sodium 136 mmol/L (135-145); eGFR 38.53
[2023-04-08 07:52] LABS: Anisocytosis 2+; Normal RBC Morphology No
[2023-04-08 07:54] LABS: Acanthocytes 1+; Hypochromasia 1+; Ovalocytes 1+; Poikilocytosis Slight; Polychromasia Slight
[2023-04-08] MEDS: TYLENOL 1000 MG PO ×3 (08:12→21:14)
[2023-04-08] MEDS: KCL 20 MEQ PO (08:12)
[2023-04-08] MEDS: VITAMIN B-6 50 MG PO (08:12)
[2023-04-08] MEDS: PROTONIX 40 MG PO ×2 (08:13→19:59)
[2023-04-08] MEDS: COREG 6.25 MG PO ×2 (08:13→19:59)
[2023-04-08] MEDS: DULCOLAX PO (08:15)
[2023-04-08] MEDS: SYMBICORT 80/4.5 MCG INHALER 2 PUFF INH ×2 (08:30→19:50)
--- NOTE | 2023-04-08 11:02 | W.PN.GI.CBS2 ---
Today's Communication / Plan
-
Continue pantoprazole twice daily for 1 month and then daily
Avoid NSAIDs
Okay to DC home from GI perspective and follow-up as outpatient
Assessment / Plan
-
Tae is a 77-year-old male with multiple comorbidities including CHF, permanent atrial fibrillation on Eliquis, ICD placement, severe emphysema and COPD, recent right heart cath, CAD status post CABG returns to the hospital for the second time this
month with dyspnea on exertion now with drop in hemoglobin from 11 down to 7.3 with black heme positive stool on rectal exam now getting 1 unit of blood
Upper GI bleed secondary to gastric ulcer as noted on endoscopy from yesterday.
Continue pantoprazole twice daily for 1 month and then daily
Avoid NSAIDs discussed with and patient at bedside.
Hemoglobin stable and no further bleeding okay to DC home today from GI perspective and follow-up with GI as outpatient in 2 to 3 months and if medically stable then consider repeat endoscopy to check for healing, gastric biopsies from yesterday are
pending
we will sign off and will be available as needed
Subjective
Subjective
Date of Service: April 08, 2023
Last bowel movement was yesterday was dark, has not had any bowel movement since then and hemoglobin remained stable he is tolerating diet
Objective
Data Reviewed
Laboratory Data:
Laboratory Results
04/08/23 04:36
04/08/23 04:36
Laboratory Results
Magnesium 2.7 mg/dl (1.6-2.3) H 04/02/23 04:23
Total Bilirubin 0.9 mg/dl (0.2-1.3) 04/01/23 07:21
AST 34 U/L (17-59) 04/01/23 07:21
ALT 32 U/L (0-50) 04/01/23 07:21
Alkaline Phosphatase 131 U/L (38-126) H 04/01/23 07:21
Vital Signs and I&O:
Vital Signs
Temp Pulse Resp BP Pulse Ox
97.7 F 67 16 112/53 97
04/08/23 08:03 04/08/23 08:38 04/08/23 08:38 04/08/23 08:13 04/08/23 08:38
I&O
04/07/23 04/08/23 04/09/23
06:59 06:59 06:59
Intake Total 1536 / 1536 1300 / 1300
Output Total 1075 / 1075 975 / 975
Balance 461 / 461 325 / 325
Physical Exam
Physical Exam
Cardiology: Normal Sinus Rhythm
Pulmonary: Clear
GI: Soft, Non Distended and Normal Bowel Sounds
--- NOTE | 2023-04-08 11:03 | W.PN.HOSP.TC ---
Today's Communication/Plan
-
Monitor vital signs and see plan
Monitor hemoglobin
Restart Eliquis
Discharge planning
lasix
Assessment / Plan
Assessment / Plan
Physical exam:
General: Appears Chronically Ill
HEENT: Normocephalic and Anicteric. Left eye is blind.
Respiratory: No rales, no wheezes heard
Cardiac: S1/S2
GI: Soft, non tender.
: clear urine
Musculoskeletal: trace edema
Neuro: AO x 3
Psych: Calm
# Acute on chronic blood loss anemia. Rectal exam on 04/05 strongly positive heme test with dark stool noted.
Likely exacerbated by Eliquis
HGB dropped from 11 to 7 during this admission and last admission he needed IV iron and blood transfusion.S/p 1 unit of PRBC 2/5
s/p 1 unit prbc 04/06; hgb 8.2
Patient reports severe fatigue. Will give one unit of RBC today. Consent signed.
No hx of colon polyp/ cancer/IBD/Hemorrhoids.
No abd pain or nausea
IV Iron ( already had doses last admission)
d/w GI doctor. Also cardiology doctor was notified about holding Eliquis.
Appreciate GI input, EGD 04/01 9 with nonbleeding gastric ulcer. Continue with PPI, continue PPI twice daily for 1 month and then once daily. Patient to follow-up with GI outpatient. Restart Eliquis since hemoglobin stable per GI
# Constipation
Added Dulcolax.
# Acute respiratory distress, no hypoxia due to underlying emphysema/ COPD without convincing evidence of flare (no cough, increase sputum production, fever/chills).
on levalbuterol HFA-FEV1 2.17-67%, no significant BD response, FVC 3.99-88%
He denies cough or sob this morning. Lung no rales or wheezes.
Former smoker with hx of Lung cancer status post right upper lobe lobectomy
- CXR no evidence of PNA
- monitor and continue home nebs
Not on LAMA or ICS at home. Symbicort added; on dc send Advair as its covered by insurance
Chest CT 04/02 with moderate to severe emphysema. Right upper lobe lobectomy
Spirometry 04/04 with moderate obstruction and marginal response to bronchodilator challenge
Appreciate pulmonary input
# chronic HFrEF.
Hx of Cardiomyopathy with ICD
Moderate mitral regurgitation/Moderate tricuspid regurgitation/Moderate pulmonary hypertension
- recent hospitalization for 10 days; dc 1 week ago. was on Milrinone and had RHC. Echo: (LVEF 30-35%)
- now admitting with concern for recurrent CHF with orthopnea, evaluated by cardiology who does not think patient is in acute CHF
- Lasix changed to PO however , held 2/2 over diuresis. At discharge use his usual regimen. Dry weight likely more than 171 pounds, lets use goal 171-174 pounds for now as goal dry weight
lasix 04/08
- GDMT: Coreg
Appreciate cardiology help
# Permanent atrial fibrillation
no palpitation
c/w rate control with Coreg. restart Eliquis 5mg BID
#CKD stage 3b, worsened recently from cardio-renal state
Cr 1.8 today
No flank pain or hematuria.
#Recent confusion/tremors suspect mild toxic metabolic encephalopathy
- patient saw Neuro last admit, no specific recommendations
- head CT showed: No acute intracranial abnormality noted. Moderate atrophy. Progressed. Old left occipital lobe infarct. Stable
- suspect possible underlying cognitive impairment dementia which can be formally tested outpatient. Monitor for in-hospital sundowning.
#Mild hypercalcemia
resolved.
#Coronary artery disease status post PCI in 2004/CABG in 2018--Continue statin
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
#Thyroid cancer status post thyroidectomy
#Restless leg syndrome--Continue gabapentin
#DVT ppx: Eliquis
Code: Full
I spent a total of 53 minutes with the patient or on the floor. More than 50% of this time involved counseling and coordination of care.
Anticipated Discharge: Within 24 hours
Subjective/Interval History
-
Date of Service: April 08, 2023
Denies abdominal pain
Objective Data
-
Labs:
Laboratory Results
04/08/23
04:36
WBC 7.8
Hgb 8.2 L
Hct 24.9 L
Plt Count 189
Sodium 136
Potassium 4.5
Chloride 114 H
Carbon Dioxide 21 L
BUN 26 H
Creatinine 1.8 H
Glucose 98
Calcium 9.7
Vital Signs:
Vital Signs
Temp Pulse Resp BP Pulse Ox
97.7 F 67 16 112/53 97
04/08/23 08:03 04/08/23 08:38 04/08/23 08:38 04/08/23 08:13 04/08/23 08:38
I&O
04/07/23 04/08/23 04/09/23
06:59 06:59 06:59
Intake Total 1536 / 1536 1300 / 1300
Output Total 1075 / 1075 975 / 975
Balance 461 / 461 325 / 325
--- NOTE | 2023-04-08 11:08 | W.PN.UPDATE ---
Update Note
Progress Note Update
Okay to restart Eliquis in 3 to 4 days if no further bleeding
[2023-04-08] MEDS: FERRLECIT 110 MG IV (14:22)
[2023-04-08] MEDS: MAGNESIUM OXIDE 500 MG PO (17:10)
[2023-04-08] MEDS: ELIQUIS 5 MG PO (19:59)
[2023-04-08] MEDS: NEURONTIN 300 MG PO (21:15)
[2023-04-08] MEDS: LIPITOR 40 MG PO (21:15)
[2023-04-09 03:46] VITALS: BP 106/45
[2023-04-09 05:07] LABS: % Basophils 0.5 % (0-2); % Eosinophils 3.3 % (0-6); % Immature Granulocytes 0.8 % (0-0.5); % Lymphocytes 18.7 % (20.5-51.1); % Neutrophils 65.7 % (42.2-75.2); Absolute Eosinophils 0.2 10^3/uL (0-0.7); Absolute Immature Granulocytes 0.1 10^3/uL (0-0.05); Absolute Lymphocytes 1.2 10^3/uL (1.2-3.4); Absolute Monocytes 0.7 10^3/uL (0.1-0.6); Absolute Neutrophils 4.2 10^3/uL (1.4-6.5); Hematocrit 24.1 % (39.0-52.0); Hemoglobin 7.9 g/dL (13.0-18.0); Mean Corp Hgb Conc. 32.8 g/dL (33.0-37.0); Mean Corpuscular Volume 88.6 fL (80.0-94.0); Mean Platelet Volume 9.8 fL (7.4-10.4); Nucleated Red Blood Cells % 0.6 % (-); Platelet Count 188 10^3/uL (130-400); Red Blood Cell Count 2.72 10^6/uL (4.70-6.10); Red Cell Dist. Width 23.5 % (11.5-14.5); White Blood Cell Count 6.4 10^3/uL (4.8-10.8)
[2023-04-09 05:21] VITALS: BMI 22.9
[2023-04-09] MEDS: TYLENOL 1000 MG PO ×2 (05:24→11:44)
[2023-04-09 05:26] LABS: Blood Urea Nitrogen 21 mg/dl (9-20); Calcium 9.3 mg/dl (8.4-10.2); Carbon Dioxide 23 mmol/L (22-30); Chloride 110 mmol/L (98-107); Estimated Creatinine Clearance 38 ml/min; Glucose 129 mg/dl (70-99); Potassium 4.3 mmol/L (3.5-5.1); Sodium 137 mmol/L (135-145); eGFR 38.53
[2023-04-09 06:00] VITALS: BMI 22.9
[2023-04-09 07:15] VITALS: BP 110/52
[2023-04-09] MEDS: SYMBICORT 80/4.5 MCG INHALER 2 PUFF INH (08:16)
[2023-04-09] MEDS: VITAMIN B-6 50 MG PO (08:44)
[2023-04-09] MEDS: KCL 20 MEQ PO (08:44)
[2023-04-09] MEDS: PROTONIX 40 MG PO (08:44)
[2023-04-09] MEDS: COREG 6.25 MG PO (08:44)
[2023-04-09] MEDS: ELIQUIS 5 MG PO (08:44)
[2023-04-09] MEDS: DULCOLAX PO (08:45)
[2023-04-09 11:02] VITALS: BP 103/53
--- NOTE | 2023-04-09 11:27 | W.PN.HOSP.TC ---
Addendum entered and electronically signed by Abhishek Dobbs MD 04/09/23 14:00:
Repeat hemoglobin better 8.3. Updated spouse over the phone
Time of discharge 38 minutes
Original Note:
Today's Communication/Plan
-
Monitor vital signs and see plan
Repeat hemoglobin later today and if stable then likely can be discharged
Continue with Eliquis
Continue with cardiac meds
Assessment / Plan
Assessment / Plan
Physical exam:
General: Appears Chronically Ill
HEENT: Normocephalic and Anicteric. Left eye is blind.
Respiratory: No rales, no wheezes heard
Cardiac: S1/S2
GI: Soft, non tender.
: clear urine
Musculoskeletal: trace edema
Neuro: AO x 3
Psych: Calm
# Acute on chronic blood loss anemia. Rectal exam on 04/05 strongly positive heme test with dark stool noted.
Likely exacerbated by Eliquis
HGB dropped from 11 to 7 during this admission and last admission he needed IV iron and blood transfusion.S/p 1 unit of PRBC 2/5
s/p 1 unit prbc /25; hgb 7.9. repeat later today
Patient reports severe fatigue. Will give one unit of RBC today. Consent signed.
No hx of colon polyp/ cancer/IBD/Hemorrhoids.
No abd pain or nausea
IV Iron ( already had doses last admission)
Appreciate GI input, EGD with nonbleeding gastric ulcer. Continue with PPI, continue PPI twice daily for 1 month and then once daily. Patient to follow-up with GI outpatient. Restart Eliquis since hemoglobin stable per GI (Dr Oquendo)
# Constipation
Added Dulcolax.
# Acute respiratory distress, no hypoxia due to underlying emphysema/ COPD without convincing evidence of flare (no cough, increase sputum production, fever/chills).
on levalbuterol HFA-FEV1 2.17-67%, no significant BD response, FVC 3.99-88%
He denies cough or sob this morning. Lung no rales or wheezes.
Former smoker with hx of Lung cancer status post right upper lobe lobectomy
- CXR no evidence of PNA
- monitor and continue home nebs
Not on LAMA or ICS at home. Symbicort added; on dc send Advair as its covered by insurance
Chest CT 04/02 with moderate to severe emphysema. Right upper lobe lobectomy
Spirometry 04/04 with moderate obstruction and marginal response to bronchodilator challenge
Appreciate pulmonary input
# chronic HFrEF.
Hx of Cardiomyopathy with ICD
Moderate mitral regurgitation/Moderate tricuspid regurgitation/Moderate pulmonary hypertension
- recent hospitalization for 10 days; dc 1 week ago. was on Milrinone and had RHC. Echo: (LVEF 30-35%)
- now admitting with concern for recurrent CHF with orthopnea, evaluated by cardiology who does not think patient is in acute CHF
- Lasix changed to PO however , held 2/2 over diuresis. At discharge use his usual regimen. Dry weight likely more than 171 pounds, lets use goal 171-174 pounds for now as goal dry weight
lasix 04/08
- GDMT: Coreg
Appreciate cardiology help
# Permanent atrial fibrillation
no palpitation
c/w rate control with Coreg. restart Eliquis 5mg BID
#CKD stage 3b, worsened recently from cardio-renal state
Cr 1.8 today
No flank pain or hematuria.
#Recent confusion/tremors suspect mild toxic metabolic encephalopathy
- patient saw Neuro last admit, no specific recommendations
- head CT showed: No acute intracranial abnormality noted. Moderate atrophy. Progressed. Old left occipital lobe infarct. Stable
- suspect possible underlying cognitive impairment dementia which can be formally tested outpatient. Monitor for in-hospital sundowning.
#Mild hypercalcemia
resolved.
#Coronary artery disease status post PCI in 2004/CABG in 2018--Continue statin
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
#Thyroid cancer status post thyroidectomy
#Restless leg syndrome--Continue gabapentin
#DVT ppx: Eliquis
Code: Full
I spent a total of 52 minutes with the patient or on the floor. More than 50% of this time involved counseling and coordination of care.
Anticipated Discharge: Within 24 hours
Subjective/Interval History
-
Date of Service: April 09, 2023
denies pain
Objective Data
-
Labs:
Laboratory Results
04/09/23 04/09/23
04:03 10:56
WBC 6.4
Hgb 7.9 L Pending
Hct 24.1 L Pending
Plt Count 188
Sodium 137
Potassium 4.3
Chloride 110 H
Carbon Dioxide 23
BUN 21 H
Creatinine 1.8 H
Glucose 129 H
Calcium 9.3
Vital Signs:
Vital Signs
Temp Pulse Resp BP Pulse Ox
97.6 F 67 16 103/53 97
04/09/23 11:02 04/09/23 11:02 04/09/23 11:02 04/09/23 11:02 04/09/23 11:02
I&O
04/08/23 04/09/23 04/10/23
06:59 06:59 06:59
Intake Total 1300 / 1300 480 / 480
Output Total 975 / 975 625 / 625
Balance 325 / 325 -145 / -145
[2023-04-09 11:36] LABS: Hematocrit 25.6 % (39.0-52.0); Hemoglobin 8.3 g/dL (13.0-18.0)
--- NOTE | 2023-04-09 13:59 | W.DCSUMMARY ---
Discharge Summary
Discharge Data
Date of Admission: 04/01/23
Date of Discharge: 04/09/23
-
Pending Results: Yes
Hospital Course
77-year-old male with past medical history of CHF, cardiomyopathy with ICD, CKD, pulmonary atrial fibrillation, coronary artery disease status post PCI, aortic stenosis status post TAVR, thyroid cancer status post thyroidectomy, restless leg
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 Patient was also seen by
pulmonary and was started on breathing treatments. This improved some of his symptoms. Patient did had PFTs which was consistent with obstructive lung disease. CT chest was also done which showed moderate to severe emphysema. Given these
findings patient was started on LABA/ICS. On this hospitalization patient also had low hemoglobin with heme positive stool. He was then seen by gastroenterology and had endoscopy which showed nonbleeding gastric ulcer. Given these findings
patient was started on PPI twice daily. He also required blood transfusion on this hospitalization. Prior to discharge he was able to be started back on Eliquis. Once patient symptoms were improving, he was then discharged home with instructions
to follow-up with all of his physicians outpatient.
Discharge Plan
-
Patient Disposition: Home with Home Care
Discharge Diagnosis/Procedures: Acute on chronic blood loss anemia
Gastric ulcer
Constipation
Suspect underlying emphysema/chronic obstructive pulmonary disease
Chronic heart failure with reduced ejection fraction
Pulmonary atrial fibrillation
Chronic kidney disease
Condition: Fair
Diet: 2 Gram Sodium
Activity: As tolerated
Driving Restrictions: Not until seen by your Dr
Bathing Restrictions: None
Blood Work: CBC and BMP next week with primary care provider
Specialty Instructions: Weigh Daily- Call MD for wt gain/loss 3 lbs overnight/5 lbs in 1 week
Activity Restrictions/Additional Instructions:
Dry weight likely more than 171-174 pounds for now; start lasix if weight>174 pounds. Follow-up with cardiology outpatient
Referrals:
Patric Riley MD [Family Provider] - in less than 1 week
Eliana Merchant CRNP [Specified Professional Personl] - 04/30/23 11:30 am
Alberto Swain MD [Active] - 04/30/23 10:00 am ([facility] )
Lucio Tapia MD [Active] - in two to three weeks
(Dr. Hawkins, Dr. Tapia, or [employer]ES [employer]
Needs PFTs, yearly low-dose lung cancer screening CT, sleep study)
Prescriptions:
New
pantoprazole 40 mg Tablet,Delayed Release (Dr/Ec)
40 mg PO BID Qty: 60 0RF
bisacodyl 5 mg Tablet,Delayed Release (Dr/Ec)
10 mg PO DAILY Qty: 30 0RF
fluticasone propion-salmeterol [Advair Diskus] 250-50 mcg/dose blister with device
1 inh inhalation BID Qty: 60 0RF
Continued
atorvastatin 40 MG tablet
40 mg PO HS
levalbuterol tartrate [Xopenex HFA] 45 mcg/actuation HFA aerosol inhaler
2 inh inhalation R BID
carvedilol [Coreg] 6.25 mg Tablet
6.25 mg PO Q12
gabapentin 300 mg Capsule
300 mg PO HS
potassium chloride 20 mEq Tablet Extended Release
20 meq PO DAILY
magnesium oxide 400 mg magnesium Tablet
400 mg PO QPM
acetaminophen [Tylenol Extra Strength] 500 mg Tablet
1,000 mg PO Q6H PRN (Reason: mild pain)
levalbuterol tartrate 45 mcg/actuation HFA aerosol inhaler
2 puff INHALATION R Q4HPRN PRN (Reason: shortness of breath)
sennosides-docusate sodium [Stool Softener-Stimulant Laxat] 8.6-50 mg tablet
1 tab PO BIDPRN PRN (Reason: constipation)
Eliquis 5 mg tablet
5 mg PO BID
pyridoxine (vitamin B6) [Vitamin B-6] 50 mg Tablet
50 mg PO DAILY
furosemide 40 mg tablet
40 mg PO BID@0800,1600 Qty: 0 0RF
Rx Instructions:
restart when weight > 174 pounds
Discharge Orders:
Discharge Patient (As Directed); Ordered 04/09/23
Ordered By: Abhishek Dobbs
Discharge Date and Time
Discharge Date/Time: 04/09/23 16:11
--- NOTE | 2023-04-09 15:12 | CM ---
Patient has been medically cleared for discharge to home with [facility] skilled services. will transport home.
== END 2023-04-09 16:11 | disposition home health service (06) | DRG 190 ==
LOC: 2 NORTH 12:49
PROVIDERS: Internal Medicine; ADMITTING PHYSICIAN Internal Medicine; ATTENDING PHYSICIAN Internal Medicine; CONSULT PHYSICIAN Internal Medicine; CONSULT PHYSICIAN Internal Medicine Cardiovascular Disease; CONSULT PHYSICIAN Internal Medicine Pulmonary Disease; EMERGENCY PHYSICIAN Emergency Medicine; FAMILY PHYSICIAN Family Medicine
PROC: 30233N1 Transfusion of Nonautologous Red Blood Cells into Peripheral Vein, Percutaneous Approach (ICD-10-PCS; 2023-04-06)
PROC: 0DB68ZX Excision of Stomach, Via Natural or Artificial Opening Endoscopic, Diagnostic (ICD-10-PCS; 2023-04-07)
DX: J43.9 Emphysema, unspecified (principal); G92.8 Other toxic encephalopathy; K25.4 Chronic or unspecified gastric ulcer with hemorrhage; D62 Acute posthemorrhagic anemia; I13.0 Hypertensive heart and chronic kidney disease with heart failure and stage 1 through stage 4 chronic kidney disease, or unspecified chronic kidney disease; I50.22 Chronic systolic (congestive) heart failure; I48.21 Permanent atrial fibrillation; D68.32 Hemorrhagic disorder due to extrinsic circulating anticoagulants; I42.9 Cardiomyopathy, unspecified; K44.9 Diaphragmatic hernia without obstruction or gangrene; I25.10 Atherosclerotic heart disease of native coronary artery without angina pectoris; H54.62 Unqualified visual loss, left eye, normal vision right eye; I08.3 Combined rheumatic disorders of mitral, aortic and tricuspid valves; I27.20 Pulmonary hypertension, unspecified; E89.0 Postprocedural hypothyroidism; G25.81 Restless legs syndrome; Z87.891 Personal history of nicotine dependence; Z85.850 Personal history of malignant neoplasm of thyroid; Z95.2 Presence of prosthetic heart valve; Z98.61 Coronary angioplasty status; Z95.1 Presence of aortocoronary bypass graft
CPT/HCPCS: 88305; 71046; 71250; 80048; 80053; 82805; 83735; 83880; 84484; 85014; 85018; 85025; 85027; 86850; 86900; 86901; 86920; 88342; 92610; 93005; 94060; 94640; 94761; 96374; 97116; 97162; 97166; 99285; J2916; P9016

== ENCOUNTER → 2023-04-18 13:34 | Outpatient (REF) | payer OTHER, SELFPAY ==
[2023-04-18 13:56] LABS: % Basophils 1.3 % (0-2); % Immature Granulocytes 0.2 % (0-0.5); % Lymphocytes 25.4 % (20.5-51.1); % Monocytes 12.1 % (1.7-9.3); Absolute Basophils 0.1 10^3/uL (0-0.2); Absolute Eosinophils 0.2 10^3/uL (0-0.7); Absolute Lymphocytes 1.3 10^3/uL (1.2-3.4); Absolute Monocytes 0.6 10^3/uL (0.1-0.6); Absolute Neutrophils 3.1 10^3/uL (1.4-6.5); Hematocrit 31.6 % (39.0-52.0); Hemoglobin 10.3 g/dL (13.0-18.0); Mean Corp Hgb Conc. 32.6 g/dL (33.0-37.0); Mean Corpuscular Hgb 29.9 pg (27.0-31.0); Mean Corpuscular Volume 91.9 fL (80.0-94.0); Mean Platelet Volume 10.2 fL (7.4-10.4); Nucleated Red Blood Cells % 0 % (-); Platelet Count 177 10^3/uL (130-400); Red Blood Cell Count 3.44 10^6/uL (4.70-6.10); Red Cell Dist. Width 21.9 % (11.5-14.5); White Blood Cell Count 5.3 10^3/uL (4.8-10.8)
[2023-04-18 14:22] LABS: Blood Urea Nitrogen 10 mg/dl (9-20); Calcium 10.1 mg/dl (8.4-10.2); Carbon Dioxide 20 mmol/L (22-30); Chloride 114 mmol/L (98-107); Glucose 90 mg/dl (70-99); Potassium 4.7 mmol/L (3.5-5.1); Sodium 137 mmol/L (135-145); eGFR 38.53
== END ==
LOC: CLAB 13:34
PROVIDERS: ATTENDING PHYSICIAN Family Medicine
DX: D63.1 Anemia in chronic kidney disease (principal); D62 Acute posthemorrhagic anemia
CPT/HCPCS: 80048; 85025

== ENCOUNTER → 2023-06-24 10:29 | Outpatient (REF) | payer OTHER, SELFPAY ==
[2023-06-24 12:20] LABS: Blood Urea Nitrogen 28 mg/dl (9-20); Calcium 10.7 mg/dl (8.4-10.2); Carbon Dioxide 22 mmol/L (22-30); Chloride 107 mmol/L (98-107); Glucose 111 mg/dl (70-99); Potassium 4.7 mmol/L (3.5-5.1); Sodium 139 mmol/L (135-145); eGFR 35.88
== END ==
LOC: REG 10:29
PROVIDERS: ATTENDING PHYSICIAN Internal Medicine Cardiovascular Disease; FAMILY PHYSICIAN Family Medicine
DX: I50.20 Unspecified systolic (congestive) heart failure (principal)
CPT/HCPCS: 36415; 80048

== ENCOUNTER → 2023-06-30 11:24 | Outpatient (REF) | payer OTHER, SELFPAY ==
[2023-06-30 12:33] LABS: NT-proBNP 2190 pg/ml
[2023-06-30 12:46] LABS: Blood Urea Nitrogen 35 mg/dl (9-20); Calcium 10.7 mg/dl (8.4-10.2); Carbon Dioxide 28 mmol/L (22-30); Chloride 101 mmol/L (98-107); Glucose 106 mg/dl (70-99); Potassium 4.7 mmol/L (3.5-5.1); Sodium 137 mmol/L (135-145); eGFR 28.53
== END ==
LOC: REG 11:24
PROVIDERS: ATTENDING PHYSICIAN Internal Medicine Cardiovascular Disease; FAMILY PHYSICIAN Family Medicine
DX: I25.5 Ischemic cardiomyopathy (principal); I48.91 Unspecified atrial fibrillation; E78.5 Hyperlipidemia, unspecified
CPT/HCPCS: 36415; 80048; 83880

== ENCOUNTER → 2023-07-03 09:41 | Outpatient (REF) | payer OTHER, SELFPAY | LOC: HWRAD 09:41 | PROVIDERS: ATTENDING PHYSICIAN Urology; FAMILY PHYSICIAN Family Medicine | DX: N99.72 Accidental puncture and laceration of a genitourinary system organ or structure during other procedure (principal); N20.0 Calculus of kidney | CPT/HCPCS: 76770 ==

== ENCOUNTER → 2023-07-08 11:42 | Outpatient (REF) | payer OTHER, SELFPAY ==
[2023-07-08 13:43] LABS: Albumin 3.7 g/dl (3.5-5.0); Blood Urea Nitrogen 32 mg/dl (9-20); Calcium 10.7 mg/dl (8.4-10.2); Carbon Dioxide 26 mmol/L (22-30); Chloride 105 mmol/L (98-107); Glucose 100 mg/dl (70-99); Phosphorus 3.2 mg/dl (2.5-4.5); Potassium 4.3 mmol/L (3.5-5.1); Sodium 139 mmol/L (135-145); eGFR 38.29
== END ==
LOC: REG 11:42
PROVIDERS: ATTENDING PHYSICIAN Internal Medicine Cardiovascular Disease; FAMILY PHYSICIAN Family Medicine
DX: I25.5 Ischemic cardiomyopathy (principal)
CPT/HCPCS: 36415; 80069

== ENCOUNTER → 2023-10-31 11:56 | Outpatient (REF) | payer OTHER, SELFPAY ==
[2023-10-31 13:57] LABS: % Basophils 1.4 % (0-2); % Eosinophils 2.6 % (0-6); % Immature Granulocytes 0.2 % (0-0.5); % Lymphocytes 16.3 % (20.5-51.1); % Monocytes 11.1 % (1.7-9.3); % Neutrophils 68.4 % (42.2-75.2); Absolute Basophils 0.1 10^3/uL (0-0.2); Absolute Eosinophils 0.2 10^3/uL (0-0.7); Absolute Lymphocytes 1.4 10^3/uL (1.2-3.4); Absolute Neutrophils 5.8 10^3/uL (1.4-6.5); Hematocrit 39.3 % (39.0-52.0); Hemoglobin 13.3 g/dL (13.0-18.0); Mean Corp Hgb Conc. 33.8 g/dL (33.0-37.0); Mean Corpuscular Hgb 31.3 pg (27.0-31.0); Mean Corpuscular Volume 92.5 fL (80.0-94.0); Mean Platelet Volume 10.5 fL (7.4-10.4); Nucleated Red Blood Cells % 0 % (-); Platelet Count 213 10^3/uL (130-400); Red Blood Cell Count 4.25 10^6/uL (4.70-6.10); Red Cell Dist. Width 13.4 % (11.5-14.5); White Blood Cell Count 8.5 10^3/uL (4.8-10.8)
[2023-10-31 15:09] LABS: Blood Urea Nitrogen 34 mg/dl (9-20); Calcium 10.5 mg/dl (8.4-10.2); Carbon Dioxide 20 mmol/L (22-30); Chloride 106 mmol/L (98-107); Glucose 93 mg/dl (70-99); Potassium 4.8 mmol/L (3.5-5.1); Sodium 142 mmol/L (135-145); eGFR 27.11
== END ==
LOC: REG 11:56
PROVIDERS: ATTENDING PHYSICIAN Nurse Practitioner
DX: R42 Dizziness and giddiness (principal)
CPT/HCPCS: 36415; 80048; 85025

== ENCOUNTER → 2023-11-10 13:06 | Outpatient (REF) | payer OTHER, SELFPAY ==
[2023-11-10 15:53] LABS: Blood Urea Nitrogen 34 mg/dl (9-20); Calcium 10.5 mg/dl (8.4-10.2); Carbon Dioxide 24 mmol/L (22-30); Chloride 105 mmol/L (98-107); Glucose 87 mg/dl (70-99); Potassium 4.9 mmol/L (3.5-5.1); Sodium 139 mmol/L (135-145); eGFR 30.09
== END ==
LOC: REG 13:06
PROVIDERS: ATTENDING PHYSICIAN Nurse Practitioner; FAMILY PHYSICIAN Family Medicine
DX: N18.32 Chronic kidney disease, stage 3b (principal); I25.5 Ischemic cardiomyopathy; I50.23 Acute on chronic systolic (congestive) heart failure
CPT/HCPCS: 36415; 80048

== ENCOUNTER → 2023-11-26 12:06 | Outpatient (REF) | payer OTHER, SELFPAY ==
[2023-11-26 14:07] LABS: Blood Urea Nitrogen 28 mg/dl (9-20); Calcium 10.5 mg/dl (8.4-10.2); Carbon Dioxide 25 mmol/L (22-30); Chloride 104 mmol/L (98-107); Glucose 90 mg/dl (70-99); Potassium 5.1 mmol/L (3.5-5.1); Sodium 141 mmol/L (135-145); eGFR 28.53
== END ==
LOC: REG 12:06
PROVIDERS: ATTENDING PHYSICIAN Student in an Organized Health Care Education/Training Program; FAMILY PHYSICIAN Family Medicine
DX: I25.5 Ischemic cardiomyopathy (principal)
CPT/HCPCS: 36415; 80048

== ENCOUNTER → 2023-12-01 12:07 | Outpatient (REF) | payer OTHER, SELFPAY ==
[2023-12-01 14:31] LABS: Blood Urea Nitrogen 29 mg/dl (9-20); Calcium 10.4 mg/dl (8.4-10.2); Carbon Dioxide 23 mmol/L (22-30); Chloride 105 mmol/L (98-107); Glucose 95 mg/dl (70-99); Sodium 139 mmol/L (135-145); eGFR 27.11
== END ==
LOC: REG 12:07
PROVIDERS: ATTENDING PHYSICIAN Student in an Organized Health Care Education/Training Program; FAMILY PHYSICIAN Family Medicine
DX: Z95.5 Presence of coronary angioplasty implant and graft (principal)
CPT/HCPCS: 36415; 80048

== ENCOUNTER → 2023-12-08 12:05 | Outpatient (REF) | payer OTHER, SELFPAY ==
[2023-12-08 14:01] LABS: Blood Urea Nitrogen 34 mg/dl (9-20); Calcium 10.5 mg/dl (8.4-10.2); Carbon Dioxide 29 mmol/L (22-30); Chloride 101 mmol/L (98-107); Glucose 103 mg/dl (70-99); Magnesium 2.6 mg/dl (1.6-2.3); Potassium 4.3 mmol/L (3.5-5.1); Sodium 140 mmol/L (135-145); eGFR 20.74
== END ==
LOC: REG 12:05
PROVIDERS: ATTENDING PHYSICIAN Student in an Organized Health Care Education/Training Program; FAMILY PHYSICIAN Family Medicine
DX: E78.5 Hyperlipidemia, unspecified (principal)
CPT/HCPCS: 36415; 80048; 83735

== ENCOUNTER 2023-12-08 23:55 | Inpatient (IN) | payer OTHER, SELFPAY ==
[2023-12-08 16:30] VITALS: BP 118/59
--- NOTE | 2023-12-08 16:32 | ED.GENMED ---
ED Provider Triage
<Tisha Fischer, COLLECTIONS CLERK - Last Filed: 12/08/23 16:37>
-
Attestation: A medical screening examination has been initiated by a qualified medical provider. Based on the assessment performed at this time, it has been determined that an emergent medical condition may exist and the patient has been informed
that further medical evaluation and possible additional diagnostic testing may be needed.
HPI: 78 yo male here for SOB, 'fluid in his belly' per 'that's where he retains his fluid' when CHF. Also was called by his wire stitcher operator Torrey Snow MD and told he has abnormal labs and told to come here
GENERAL: Alert , in no apparent distress
EYE: No visual abnormalities.
ENT: No visible abnormalities.
LUNGS: No acute respiratory distress
NEUROLOGICAL: Alert and oriented
SKIN: Skin intact. No visible changes.
MUSCULOSKELETAL: Moving extremities normally
PSYCH: Normal and appropriate interaction.
This is a medical evaluation conducted in person to initiate diagnostic evaluation and provide initial therapeutics. Please see further documentation by the treating clinician.
History of Present Illness
<Tisha Fischer, COLLECTIONS CLERK - Last Filed: 12/08/23 16:37>
General
Chief Complaint: Abnormal Lab Value
Time Seen by Provider: 12/08/23 19:42
<Rickey Mendez DO - Last Filed: 12/08/23 22:27>
General
Source: patient
Exam Limitations: none
History of Present Illness
History of Present Illness:
See MDM
Past History
<Tisha Fischer, COLLECTIONS CLERK - Last Filed: 12/08/23 16:37>
Past History
ED Past Medical History: Arrthythmia (Atrial fib), CAD, Cancer (lung/Thyroid), CHF, COPD, CVA, HTN, Hypercholesterolemia, [place], Valvular disease and Other (sepsis, Headache over the left eye continually, Renal issues, Blind left eye, Ulcers)
ED Past Surgical History: Appendectomy, Cardiac (CABG, stents), Tonsilectomy, Urological (Bladder repair, ) and Other (Laparoscopic left inguinal hernia repair November 19, 2021, Left upper lobectomy, thyroidectomy)
Social History
Tobacco: Former smoker (Sneaking a few cigarettes according to .)
Alcohol: Daily (Wine 1)
Drug: None
Personal:
Living: with family
Employment: Retired
Family History
Family History: Other (Noncontributory)
Phy Exam
<Rickey Mendez, DO - Last Filed: 12/08/23 22:27>
Physical Exam
Physical Exam:
See MDM
Course
<Tisha Fischer, COLLECTIONS CLERK - Last Filed: 12/08/23 16:37>
Orders/Labs/Results
Orders:
Orders
12/08/23 16:35
CR Chest - 2 Views Urgent
Comment:
Reason For Exam: swelling, SOB
12/08/23 16:38
Electrocardiogram (*1) Urgent
Reason for Study: Shortness of Breath
EKG- Treatment ONCE
12/08/23 16:48
Complete Blood Count/With Diff Urgent
Comprehensive Metabolic Panel Urgent
Magnesium Urgent
NT-proBNP Urgent
Troponin I Urgent
12/08/23 19:50
CT Abd/pel Without Iv Or Oral Urgent
Comment:
Reason For Exam: abd distention, weight gain
Abnormal Lab Results
12/08/23
16:48
RBC 4.23 L 10^6/uL
(4.70-6.10)
Hgb 12.6 L g/dL
(13.0-18.0)
Hct 38.0 L %
(39.0-52.0)
Absolute Neuts (auto) 6.6 H 10^3/uL
(1.4-6.5)
Absolute Lymphs (auto) 1.1 L 10^3/uL
(1.2-3.4)
Absolute Monos (auto) 1.3 H 10^3/uL
(0.1-0.6)
Lymphocytes % 12.0 L %
(20.5-51.1)
Monocytes % 13.7 H %
(1.7-9.3)
Chloride 108 H mmol/L
(98-107)
BUN 33 H mg/dl
(9-20)
Creatinine 2.5 H mg/dL
(0.7-1.3)
Magnesium 2.5 H mg/dl
(1.6-2.3)
12/08/23 16:48
12/08/23 16:48
Vital Signs
Initial and Last Documented VS:
Initial Vital Signs
Temp Pulse Resp BP Pulse Ox
98.0 F 66 16 118/59 98
12/08/23 16:30 12/08/23 16:30 12/08/23 16:30 12/08/23 16:30 12/08/23 16:30
Last Documented Vital Signs
Temp Pulse Resp BP Pulse Ox
98.0 F 65 18 115/66 96
12/08/23 16:30 12/08/23 21:28 12/08/23 21:28 12/08/23 21:28 12/08/23 21:28
<Rickey Mendez, DO - Last Filed: 12/08/23 22:27>
Orders/Labs/Results
Orders:
Orders
12/08/23 16:35
CR Chest - 2 Views Urgent
Comment:
Reason For Exam: swelling, SOB
12/08/23 16:38
Electrocardiogram (*1) Urgent
Reason for Study: Shortness of Breath
EKG- Treatment ONCE
12/08/23 16:48
Complete Blood Count/With Diff Urgent
Comprehensive Metabolic Panel Urgent
Magnesium Urgent
NT-proBNP Urgent
Troponin I Urgent
12/08/23 19:50
CT Abd/pel Without Iv Or Oral Urgent
Comment:
Reason For Exam: abd distention, weight gain
Abnormal Lab Results
12/08/23
16:48
RBC 4.23 L 10^6/uL
(4.70-6.10)
Hgb 12.6 L g/dL
(13.0-18.0)
Hct 38.0 L %
(39.0-52.0)
Absolute Neuts (auto) 6.6 H 10^3/uL
(1.4-6.5)
Absolute Lymphs (auto) 1.1 L 10^3/uL
(1.2-3.4)
Absolute Monos (auto) 1.3 H 10^3/uL
(0.1-0.6)
Lymphocytes % 12.0 L %
(20.5-51.1)
Monocytes % 13.7 H %
(1.7-9.3)
Chloride 108 H mmol/L
(98-107)
BUN 33 H mg/dl
(9-20)
Creatinine 2.5 H mg/dL
(0.7-1.3)
Magnesium 2.5 H mg/dl
(1.6-2.3)
12/08/23 16:48
12/08/23 16:48
Vital Signs
Initial and Last Documented VS:
Initial Vital Signs
Temp Pulse Resp BP Pulse Ox
98.0 F 66 16 118/59 98
12/08/23 16:30 12/08/23 16:30 12/08/23 16:30 12/08/23 16:30 12/08/23 16:30
Last Documented Vital Signs
Temp Pulse Resp BP Pulse Ox
98.0 F 65 18 115/66 96
12/08/23 16:30 12/08/23 21:28 12/08/23 21:28 12/08/23 21:28 12/08/23 21:28
<Rickeychristie Mendez, DO - Last Filed: 12/08/23 22:27>
MDM/Problems Addressed
Differential Diagnosis Includes:
HPI and MDM Narrative:
78-year-old male presenting for evaluation of abnormal blood work. Due to history of worsening congestive heart failure, his Lasix was doubled. He was supposed to go back to his normal scheduled Lasix dosing today pending blood work. He was
called to the emergency department because his creatinine appeared to have gone up. Patient denies leg swelling. He states his abdomen feels more distended than normal. at bedside states that he recently lost 2 pounds from increased
urination but gained it back quickly.
Blood work was done prior to my evaluation indicating that his creatinine is now 2.5 and near baseline. Chest x-ray clear. Patient is in no extremis. Will obtain CT abdomen/pelvis to assess for his abdominal distention of whether this is gas or
ascites
Physical exam
General: Well appearing and non-toxic
HEENT: protecting airway
Neck: appears supple
CV: No evidence of cyanosis. Regular rate and rhythm
Resp: No accessory muscle use. Lungs clear
Abd: Mildly distended but nontender
Extremities: No deformities
Neuro: alert
Psych: Normal affect
Skin: Intact
Problems Addressed including Acute and Chronic Conditions affecting care:
1. Shortness of breath
Acuity: acute
Prognosis: stable
Details: Chest x-ray clear. BNP not far from baseline. Will obtain CT abdomen/pelvis to assess for ascites
2. CKD
Acuity: Chronic
Prognosis: stable
Details: Creatinine is 2.5 on our assessment and near baseline
Updates
CT concerning for ascites. Will admit for further workup
Differential Diagnosis (but not limited to): Ascites, constipation
Testing considered: Urinalysis
Drug therapy (if applicable): OTC meds, please see d/c instruction regarding Rx drugs
Amount and/or Complexity of Data Reviewed
Clinical info obtained from: Patient
External data reviewed: N/A
Labs I independently reviewed (but not limited to): Creatinine 2
Radiology: X-ray independently reviewed: Chest x-ray clear
Pulse Ox: not hypoxic
EKG independently reviewed: Paced rhythm, normal axis, no STEMI
[employer] Farm[employer]: Paced rhythm
Critical Care: N/A
Risk of Complication:
Social Determinants of health: Good social support
Discussed with other providers: Hospitalist
Escalation of Care includes Admit/Obs: Given weight gain abdominal distention, will admit for further workup
Occasional wrong word or 'sound a like' substitutions may have occurred due to the inherent limitations of voice recognition software. Read the chart carefully and recognize, using context, where substitutions have occurred.
<Rickey Mendez DO - Last Filed: 12/08/23 22:27>
*Critical Care Note
Total Time (30-74mins, 75-104mins- exclusive of procedures): Not Applicable
ED Attending Note
<Tisha Fischer COLLECTIONS CLERK - Last Filed: 12/08/23 16:37>
-
Portions of this chart may have been created with voice recognition software.� Occasional wrong word or��sound alike� substitutions may have occurred due to the inherent limitations of voice recognition software.
Discharge Plan
Departure
Patient Disposition: Admit
Date of Disposition: 12/08/23
Time of Disposition: 22:27
Admit to: Med/Surg
Presentation/result/management discussed w/ accepting MD/DO: Hospitalist
Discharge Problem:
CKD (chronic kidney disease), Ascites
Prescriptions:
No Action
atorvastatin 40 MG tablet
40 mg PO HS
levalbuterol tartrate [Xopenex HFA] 45 mcg/actuation HFA aerosol inhaler
2 inh inhalation R BID
carvedilol [Coreg] 6.25 mg Tablet
6.25 mg PO Q12
gabapentin 300 mg Capsule
300 mg PO HS
potassium chloride 20 mEq Tablet Extended Release
20 meq PO DAILY
magnesium oxide 400 mg magnesium Tablet
400 mg PO QPM
acetaminophen [Tylenol Extra Strength] 500 mg Tablet
1,000 mg PO Q6H PRN (Reason: mild pain)
levalbuterol tartrate 45 mcg/actuation HFA aerosol inhaler
2 puff INHALATION R Q4HPRN PRN (Reason: shortness of breath)
sennosides-docusate sodium [Stool Softener-Stimulant Laxat] 8.6-50 mg tablet
1 tab PO BIDPRN PRN (Reason: constipation)
Eliquis 5 mg tablet
5 mg PO BID
pyridoxine (vitamin B6) [Vitamin B-6] 50 mg Tablet
50 mg PO DAILY
pantoprazole 40 mg Tablet,Delayed Release (Dr/Ec)
40 mg PO BID Qty: 60 0RF
bisacodyl 5 mg Tablet,Delayed Release (Dr/Ec)
10 mg PO DAILY Qty: 30 0RF
fluticasone propion-salmeterol [Advair Diskus] 250-50 mcg/dose blister with device
1 inh inhalation BID Qty: 60 0RF
furosemide 40 mg tablet
40 mg PO BID@0800,1600 Qty: 0 0RF
Rx Instructions:
restart when weight > 174 pounds
Referrals:
Patric Riley MD [Family Provider] -
Interventions
Interventions:
*Risk Screen - Suicide Last Done: 12/08/23 16:30
*Neglect/Abuse Screening Last Done: 12/08/23 16:30
ED- Fall Risk Assessment Last Done: 12/08/23 19:49
Discharge Date and Time
Print Language: LAO
[2023-12-08 16:55] LABS: % Immature Granulocytes 0.3 % (0-0.5); % Monocytes 13.7 % (1.7-9.3); Absolute Basophils 0.1 10^3/uL (0-0.2); Absolute Eosinophils 0.2 10^3/uL (0-0.7); Absolute Lymphocytes 1.1 10^3/uL (1.2-3.4); Absolute Monocytes 1.3 10^3/uL (0.1-0.6); Absolute Neutrophils 6.6 10^3/uL (1.4-6.5); Hemoglobin 12.6 g/dL (13.0-18.0); Mean Corp Hgb Conc. 33.2 g/dL (33.0-37.0); Mean Corpuscular Hgb 29.8 pg (27.0-31.0); Mean Corpuscular Volume 89.8 fL (80.0-94.0); Mean Platelet Volume 10.1 fL (7.4-10.4); Nucleated Red Blood Cells % 0 % (-); Platelet Count 252 10^3/uL (130-400); Red Blood Cell Count 4.23 10^6/uL (4.70-6.10); Red Cell Dist. Width 13.5 % (11.5-14.5); White Blood Cell Count 9.3 10^3/uL (4.8-10.8)
[2023-12-08 17:20] LABS: NT-proBNP 2340 pg/ml; Troponin I < 0.012 ng/ml
[2023-12-08 17:36] LABS: ALT (SGPT) 15 U/L (0-50); AST (SGOT) 17 U/L (17-59); Albumin 3.8 g/dl (3.5-5.0); Alkaline Phosphatase 93 U/L (38-126); Blood Urea Nitrogen 33 mg/dl (9-20); Calcium 9.5 mg/dl (8.4-10.2); Carbon Dioxide 22 mmol/L (22-30); Chloride 108 mmol/L (98-107); Glucose 71 mg/dl (70-99); Magnesium 2.5 mg/dl (1.6-2.3); Potassium 3.7 mmol/L (3.5-5.1); Sodium 144 mmol/L (135-145); Total Bilirubin 0.6 mg/dl (0.2-1.3); Total Protein 6.4 g/dl (6.3-8.2); eGFR 25.82
[2023-12-08 18:37] VITALS: BP 111/62
[2023-12-08 21:28] VITALS: BP 115/66
--- NOTE | 2023-12-08 23:03 | HPS.HSE ---
Family Physician
-
Family Physician: Patric Riley
Chief Complaint
-
shortness of breath
History of Present Illness
Patient is a 78-year-old male with past medical history significant for hypertension, hyperlipidemia, atrial fibrillation, HFrEF, CAD and CKD stage III who presented to [place] ED by recommendation of graphic engineer related to abnormal lab values.
Patient and report that patient has had a gradual increase in weight over past month at a total of 10-15 pounds. Last Friday patients Instructor Technical Training increased Lasix to 80mg BID and there has not been a significant improvement. Patient
describes normal fluid weight when in congestive heart failure is normally in the abdomen and not lower extremities.
Medical History
Past Medical History
Past Medical History: Reports Other
Additional Past Medical History:
hypertension
hyperlipidemia
atrial fibrillation
HFrEF
CAD
CKD stage III
Past Surgical History: Reports Other
Additional Past Surgical History:
CABG
AICD
Right upper lobectomy
Thyroidectomy
hernia repair
Social History
Tobacco: Former Smoker
Alcohol: None
Drug: None
Personal:
Living: With Family
Employment: Retired
Family History
Family History: Not pertinent
Allergies / Home Medications
Allergies reflects when Allergies were last updated in [facility].
Home Medications with original date entered in [facility]
Allergy/Medication List:
Allergies
Allergy/AdvReac Type Severity Reaction Status Date / Time
codeine [Codeine] Allergy nausea Verified 12/08/23 16:33
vomiting
Penicillins Allergy Hives, Verified 12/08/23 16:33
swelling,
tolerated
ceftriaxone
Feb 2020
Home Medications
atorvastatin 40 mg tablet 40 mg PO HS High cholesterol 04/25/22
carvedilol 6.25 mg tablet (Coreg) 6.25 mg PO Q12H blood pressure / heart condition 03/14/23
gabapentin 300 mg capsule 600 mg PO HS Pain 03/14/23
magnesium oxide 400 mg PO Q48H Electrolyte Repletion 03/14/23
potassium chloride 20 mEq tablet,extended release 20 meq PO DAILY Electrolyte Repletion 03/14/23
acetaminophen 500 mg tablet (Tylenol Extra Strength) 1,000 mg PO Q6HPRN PRN mild pain 04/01/23
pyridoxine (vitamin B6) 50 mg tablet (Vitamin B-6) 50 mg PO DAILY Supplement 04/01/23
pantoprazole 40 mg tablet,delayed release 40 mg PO BID #60 tabs 04/09/23
albuterol sulfate 2.5 mg/3 mL (0.083 %) solution for nebulization 2.5 mg inhalation R Q48H 12/08/23
ascorbic acid (vitamin C) 500 mg tablet (Vitamin C) 500 mg PO DAILY 12/08/23
budesonide 0.5 mg/2 mL suspension for nebulization 0.5 mg inhalation R Q48H 12/08/23
dabigatran etexilate 150 mg capsule (Pradaxa) 150 mg PO BID 12/08/23
fluticasone fur. 200 mcg-umeclid 62.5 mcg-vilant 25 mcg inhalat.powder (Trelegy Ellipta) 1 inh inhalation R Q48H 12/08/23
furosemide 40 mg tablet 40 mg PO DAILY Fluid Retention/Swelling 12/08/23
gabapentin 300 mg capsule 300 mg PO DAILY 12/08/23
ipratropium bromide 0.02 % solution for inhalation 2.5 ml inhalation R Q48H 12/08/23
Review of Systems
-
History Source: Patient and Family
Constitutional: Reports Weight Gain (10-15 pounds weight gain over past month)
EENT: Reports No Symptoms
Respiratory: Reports Other (dyspnea)
Cardiac: Reports No Symptoms
Abdomen/GI: Reports Other (distention r/t CHF exacerbation)
: Reports No Symptoms
Musculoskeletal: Reports No Symptoms
Skin: Reports No Symptoms
Neurological: Reports No Symptoms
Endocrine: Reports No Symptoms
Hematologic/Lymphatic: Reports No Symptoms
Psych: Reports No Symptoms
Physical Exam
Vital Signs
Vital Signs
Temp Pulse Resp BP Pulse Ox
98.0 F 65 18 115/66 96
12/08/23 16:30 12/08/23 21:28 12/08/23 21:28 12/08/23 21:28 12/08/23 21:28
Physical Exam
General: Well Developed, Well Nourished, No Apparent Distress, Comfortable and Conversant
HEENT: NormoCephalic, Moist mucous membranes and Atraumatic
Respiratory: Clear and Non Labored Respirations; No Wheezes, Rales, Rhonchi or Crackles
Cardiac: S1/S2 and Regular Rhythm; No Murmur, Rub or Gallop
Breast: Deferred by me
GI: Soft, Non Tender, Normal Bowel Sounds and Distended (mild distension observed); No Organomegaly
Rectal: Deferred by Provider
Genito-urinary: Deferred by me
Musculoskeletal: No Clubbing, No Cyanosis and No Edema
Skin: Warm, Dry and IV/Catheter Site; No Rash
Neuro: Awake, Alert, AO x 3 and Nonfocal/grossly intact
Hematologic/Lymphatic: No Lymphadenopathy
Psych: Calm and Intact Judgment/Insight
Laboratory Results
-
12/08/23 16:48
12/08/23 16:48
Laboratory Results
Total Bilirubin 0.6 mg/dl (0.2-1.3) 12/08/23 16:48
AST 17 U/L (17-59) 12/08/23 16:48
ALT 15 U/L (0-50) 12/08/23 16:48
Alkaline Phosphatase 93 U/L (38-126) 12/08/23 16:48
Troponin I < 0.012 ng/ml 12/08/23 16:48
Data Reviewed
-
Diagnostic Radiology: Report Reviewed by me (CXR: Previous partial right lung resection, probably right upper lobectomy. Changes of emphysema, better seen on prior CT examination. )
CT Scan: Report Reviewed by me (Abd/Pelvis: Emphysematous changes within the visualized lower lungs, including bullae. Moderate atrophy of the right kidney which has developed since CT examination of May 2022. Bilateral nephrolithiasis. No
evidence for ureteral calculus. Moderate to severe atherosclerotic disease with calcifi)
Medical Tests (Nuc Med, Echo, EKG etc): Report Reviewed by me (EKG: Ventricular-paced rhythm)
Lab Data: Labs Reviewed by me (BUN 33, Creat 2.5, )
Impression/Plan
-
IMPRESSION/PLAN:
#HFrEF
- Admit to Telemetry
- Consult Cardiology
- IV Lasix 80mg BID
- Echo
#COPD
- continue albuterol, budesonide, trelegy
- PRN DuoNeb
#hypertension
- continue carvedilol
#CAD
#hyperlipidemia
- continue atorvastatin
#atrial fibrillation
- patient with ACID
- continue carvedilol, pradaxa
#CKD stage II
- continue potassium chloride
- monitor BMP
Full Code
DVT Px: Pradaxa
--- NOTE | 2023-12-08 23:33 | W.PN.UPDATE ---
Update Note
Progress Note Update
Patient seen in conjunction with INTEGRATION ANALYST, agree with the findings on history and physical. I concur with the assessment and plan unless stated otherwise.
Patient is a 78-year-old with past medical history of ischemic cardiomyopathy EF of around 35%, CAD status post CABG, permanent atrial fibrillation, COPD not on home O2 who presents to the emergency department from home after having cardiology blood
work showing elevated creatinine to 3.0 on routine follow-up testing.
It appears that over the last few weeks the patient has been having increasing weight gain. Spouse reported that he has gained about 15 to 20 pounds in about 3 weeks. He had his diuretics increased from 40 twice daily to 80 twice daily last week
Friday. Despite this increase in diuretics the patient has had for the weight gain. Overall he has had no weight loss. He continues to have mild orthopnea, increased abdominal bloating and distention. Patient has had history of exacerbation
without lower extremity edema in the past and currently does not have lower extremity edema according to the spouse. He denies any cough wheezing chest pain palpitations lightheadedness or dizziness. He is status post pacemaker and reports that
the device was interrogated very recently without any acute findings.
On arrival in the emergency department patient was febrile appropriate was 115/68 with a pulse of 65. Chest x-ray was unremarkable with known partial right lobectomy. CT of the abdomen showed right kidney atrophy and nephrolithiasis but no acute
findings. There was no ascites mentioned on the CT scan report. Patient CBC was unremarkable. BNP was elevated at 2340 troponin was negative. Chemistries with similar to his baseline with a BUN of 33 and a creatinine of 2.5. The potassium was
3.2.
A&P
Subacute CHF exacerbation with concern for RACHELE - Today Cr is similar to prior at 2.5 without other acute electrolyte changes. Patient reports weight gain and abdominal distention/swelling. No peripheral edema. No jugular vein distension. No
ascites noted on CT a/p. Does not appear markedly overload but cannt state if CI has fallen. BNP is likewise similar to prior.
- admit to telemetry
- lasix 80 for now IV bid
- i/o, daily weights and monitor creatinine
- check tsh
- keep K, Mag > 4, 2
- echo in am, cardiology consult
AFIB - rate controlled
- continue coreg, dabigatran
COPD - stable
- continue ICS/LAMA/LABA.
- prn nebs
DVT PPX - on dabigatran
Full Code
[2023-12-09] VITALS (11 sets, daily range): BP systolic 92–120; BP diastolic 54–86
[2023-12-09] MEDS: LASIX IV (03:43)
[2023-12-09] MEDS: TYLENOL 1000 MG PO (05:16)
[2023-12-09 07:09] LABS: Hematocrit 34.4 % (39.0-52.0); Hemoglobin 11.5 g/dL (13.0-18.0); Mean Corp Hgb Conc. 33.4 g/dL (33.0-37.0); Mean Corpuscular Hgb 29.6 pg (27.0-31.0); Mean Corpuscular Volume 88.4 fL (80.0-94.0); Mean Platelet Volume 10.2 fL (7.4-10.4); Platelet Count 222 10^3/uL (130-400); Red Blood Cell Count 3.89 10^6/uL (4.70-6.10); Red Cell Dist. Width 13.4 % (11.5-14.5); White Blood Cell Count 7.9 10^3/uL (4.8-10.8)
[2023-12-09 07:23] LABS: Blood Urea Nitrogen 41 mg/dl (9-20); Carbon Dioxide 29 mmol/L (22-30); Chloride 103 mmol/L (98-107); Glucose 94 mg/dl (70-99); Magnesium 2.5 mg/dl (1.6-2.3); Potassium 3.8 mmol/L (3.5-5.1); Sodium 140 mmol/L (135-145); eGFR 24.63
[2023-12-09 07:54] LABS: TSH 0.89 uIU/ml (0.47-4.68)
[2023-12-09] MEDS: KCL 20 MEQ PO (08:15)
[2023-12-09] MEDS: COREG 6.25 MG PO ×2 (08:15→20:16)
[2023-12-09] MEDS: VITAMIN B-6 50 MG PO (08:15)
[2023-12-09] MEDS: NEURONTIN 300 MG PO ×3 (08:15→21:52)
[2023-12-09] MEDS: VITAMIN C 500 MG PO (08:15)
[2023-12-09] MEDS: PROTONIX 40 MG PO ×2 (08:15→20:16)
[2023-12-09] MEDS: LASIX 80 MG IV ×2 (08:16→17:12)
--- NOTE | 2023-12-09 09:38 | W.PN.HOSP.TC ---
Addendum entered and electronically signed by Florian Frazier MD 12/09/23 23:40:
Attending Addendum-
I saw and evaluated the patient. I reviewed the resident�s note and agree with findings and plan as documented in the resident�s note. Sub: seen with present. Patient feels weak and sob on exertion. complains of abdominal distention. Full 12
point ROS reviewed and negative except as documented Exam: Vitals reviewed in chart GEN-NAD heart RRR lungs CTA B/L abd distended pos BS NT Ext no edema
Plan:
#AE HFrEF
- monitor on tele
- Cardiology input appreciated
- IV Lasix 80mg BID
- cont coreg
- has AICD/PM
- Echo 12/08-Left ventricular ejection fraction is 30-35%
Stage II diastolic dysfunction filling pressures.
Normally functioning bioprosthetic aortic valve
- strict I and O daily weights
- dry weight @ 77kgs now 86kgs!
#RACHELE on CKD stage 3B
- baseline cr @ 2
- atrophic kidneys
- if cr worsens c/s nephro
- patient refusing HD if needed
-monitor BMP
# Permanent Atrial Fibrillation
- has pacer
- cont coreg
- renally dose pradaxa
- monitor on tele
#COPD
- not in AE
- continue albuterol, budesonide, hold trelegy
- PRN DuoNeb
#
- bio AVR 2018
- normally functioning per echo
# HTN
- continue carvedilol
#CAD
- s/p stent and CABG-2 vessel
#HLD
- continue atorvastatin
# Peripheral Neuropathy
- renally dose gabapentin
# Hypermagnesemia
- dc supplement
# GERD
- cont protonix
Full Code
DVT Px: Pradaxa
ACP
Patient consented to discuss, was with , time spent explanation of advance directives, changes in health status, patient�s health care wishes if the patient becomes unable to make health decisions, goals of care, code status, and prognosis-
doesn't seem to comprehend severity of illness will revisit during hospitalization 18 minutes
Time spent coordinating care, review of plan of care with resident, personally reviewed previous records in EMR, med rec, labs, radiology, d/w nursing, family/ total time documented is exclusive of any additional time listed that was spent in
advance care planning discussion - 62 minutes
Original Note:
Today's Communication/Plan
-
80 mg Lasix IV twice daily
Echo 30-35% no change from previous in mar
Assessment / Plan
Assessment / Plan
78-year-old male with past medical history of HFrEF presented to ED after exceptional student education aide recommendation. Increasing 10 to 15 pounds over the past month. Last week cardiology increase Lasix to 80 mg twice daily without improvement. Baseline weight
160 pounds. Baseline shortness of breath with history of COPD. Patient states he accumulates fluid in his abdomen more than his lower extremities.
# Acute on chronic heart failure exacerbation
Myocardial pulmonary edema on chest x-ray
Increased SOB, JVD, abdominal distension
Decreased breath sounds bilaterally, no crackles, no lower extremity swelling
Admit to telemetry
IV Lasix 80 mg twice daily per cards
Echo EF 30-35% no significant change from prior
Moderately reduced left ventricular systolic function. Left ventricular
ejection fraction is 30-35% by Hanley's method of disc.
Asymmetric septal hypertrophy (IVS 1.5 cm, LVPW 1.1 cm).
Stage II diastolic dysfunction suggestive of abnormal relaxation and increased
filling pressures.
Normally functioning bioprosthetic aortic valve with peak/mean gradients across
the aortic valve 18/9 mmHg, respectively.
No aortic regurgitation is seen.
Mild/moderate tricuspid regurgitation. Moderately elevated PASP. Estimated
pulmonary artery pressure of 46 mmHg assuming a right atrial pressure of 3
mmHg.
Strict I's and O's
Daily weights
Last echo 03/17/2023 LVEF 30-35%
BNP 2340
Troponin negative
Cards following
#COPD
Continue albuterol, budesonide, fluticasone home meds as needed
DuoNebs as needed
#Hypertension
Continue carvedilol
#CAD status post CABG
#Hyperlipidemia
Continue atorvastatin
#A-fib
Patient with a ACID
Continue anti-coag with dabigatran
Continue for carvedilol, Pradaxa
#CKD stage IV - gfr 24.63
Creatinine 2.6, baseline 2.3
Right atrophic kidney and bilateral nephrolithiasis noted on ab/pelvic CT could be contributing
Not interested in dialysis if Cr worsens
Dabigatran renal dosing 75mg BID
Monitor BMP
#Hypermagnesemia
Hold Mg supplement
Follow mg
#Liver 1.9cm low-density patient left upper left lobe liver
Unchanged from prior CT
Normal LFTs
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
Follow-up in outpatient
#Bilateral nephrolithiasis
Asymptomatic
f/u in outpatient
Has had prior kidney stone removal 2021
#Mild fusiform dilation of abdominal aorta
2.8 cm, stable from prior CT
#Hx peptic ulcer disease
- continue pantoprazole 40 BID
#L leg sciatica
- continue gabapentin
#Hx severe aortic valve stenosis s/p bio AVR and CABGx2 05/2017 LOGAN-LAD, [facility]G-PDA. Stable on echo 03/2023
#Hx of thoracic ascending aortic aneurysm s/p aortic tube graft replacement 2017
#hx of dilated aortic root
#hx of ischemic cardiomyopathy
#hx a.fib now AICD
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
#hx thyroid cancer s/p thyroidectomy 2010
#Hx L inguinal hernia s/p repair 11/19/2021
#hx lung cancer s/p RUL lobectomy 2010
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
#hx R eye cataracts
#Hx CVA
#hx [place]/PCI 2004
DVT - Dabigatran renal dosing
Full Code
Anticipated Discharge: > 48 hours
Subjective/Interval History
-
Date of Service: December 09, 2023
Objective Data
-
Labs:
Laboratory Results
12/09/23
06:45
WBC 7.9
Hgb 11.5 L
Hct 34.4 L
Plt Count 222
Sodium 140
Potassium 3.8
Chloride 103
Carbon Dioxide 29
BUN 41 H
Creatinine 2.6 H
Glucose 94
Calcium 10.0
Vital Signs:
Vital Signs
Temp Pulse Resp BP Pulse Ox
98.0 F 98 18 118/59 95
12/09/23 07:30 12/09/23 08:15 12/09/23 07:30 12/09/23 08:15 12/09/23 08:48
Review of Systems
-
History Source: Patient
Constitutional: Reports Fatigue
Respiratory: Reports Trouble Breathing
Cardiac: Reports No Symptoms
Abdomen/GI: Reports Other (Abdominal distension)
Neuro: Reports No Symptoms
Physical Exam
-
General: Well Developed and No Apparent Distress
Respiratory: Decreased Breath Sounds
Cardiac: S1/S2 and Murmur (Systolic best heard at aortic point)
GI: Soft, Nontender and Distended
Musculoskeletal: Negative Edema, Right Lower Extrem or Edema, Left Lower Extrem
Skin: Warm
Neuro: AO x 3
Psych: Calm
[2023-12-09] MEDS: PRADAXA 150 MG PO (09:41)
[2023-12-09] MEDS: PULMICORT 0.5 MG INH (10:11)
[2023-12-09] MEDS: ATROVENT NEBULES 0.5 MG INH (10:11)
--- NOTE | 2023-12-09 15:16 | CON.CAR ---
Addendum entered and electronically signed by Subhash Baig MD 12/09/23 18:01:
I interviewed and examined the patient independently. I discussed the plan with resident MD Dr Mullins. I agree with the H/P, with any changes/additions per this addendum.
78 yo male with PMH of CAD and , s/p CABG and bio-AVR 2018, prior stenting 2004, ICM EF 30-35%, ICD, CKD3b-->4, paroxysmal A fib on pradaxa, is admitted with acute on chronic systolic HF. He has noted progressive weight gain and abdominal
distention over several weeks. Exam with RRR, no murmurs, no edema, + abdominal distention, +JVD. Cr 2.6. Tele: [facility].
Will start with lasix 80mg IV bid, with close monitoring of weight, labs, tele.
Original Note:
Consultation
Consultation Request
Date/Time Consultation Requested: 12/09/23
Date/Time Consultation Performed: 12/09/23
Requesting Provider: Dr Subhash Baig `
Performing Provider: Dr Bee Mullins
Reason for Consultation: CHF
Medical History
-
History of Present Illness:
Mr. Davison is a 78-year-old gentleman with a bicuspid aortic valve with severe aortic stenosis and dilated aortic root (CABG and biological AVR and ascending aortic tube graft replacement 2017), CAD (inferior [place]/PCI 2004), , ischemic cardiomyopathy
EF 30-35%, CKD 3, severe COPD, and paroxysmal AF with AICD, former smoker, hypertension, hyperlipidemia, history of lung cancer s/p right upper love lobectomy. Patient states was seen by Dr. Amina Payton on 11/26/2023 for cardiology follow-up
and the Lasix was increased to 80 mg daily as he was above his goal dry weight (74-77 kg) . Patient was asked to repeat labs in 1 week which showed increase in creatinine level to 3, baseline between 1.8-2.4. Thus he was asked to come to ED
for further evaluation.
Patient reports of being short of breath while tying his shoes. Patient denies PND, orthopnea. Patient's states that the symptoms has worsened over the past month. He denies chest pain, palpitations, dyspnea at rest
Past Medical History
Past Medical History: Arrhythmias (Paroxysmal atrial fibrillation), CAD, CHF, COPD, HTN, Hypercholesterolemia, Renal Failure and Other (as per HPI )
Past Surgical History: Other (per HPI )
Social History
Tobacco: Former Smoker
Alcohol: None
Drug: None
Personal:
Living: With Family
Employment: Retired
Family History
Family History: Reviewed & Not Pertinent
Allergies / Home Medications
Allergy/AdvReac Type Severity Reaction Status Date / Time
codeine [Codeine] Allergy nausea Verified 12/08/23 16:33
vomiting
Penicillins Allergy Hives, Verified 12/08/23 16:33
swelling,
tolerated
ceftriaxone
Feb 2020
�Medication �Instructions �Recorded �Confirmed �Type
atorvastatin 40 mg tablet 40 mg PO HS High cholesterol 04/25/22 12/08/23 History
carvedilol 6.25 mg tablet (Coreg) 6.25 mg PO Q12H blood pressure / 03/14/23 12/08/23 History
heart condition
gabapentin 300 mg capsule 600 mg PO HS Pain 03/14/23 12/08/23 History
magnesium oxide 400 mg PO Q48H Electrolyte 03/14/23 12/08/23 History
Repletion
potassium chloride 20 mEq 20 meq PO DAILY Electrolyte 03/14/23 12/08/23 History
tablet,extended release Repletion
acetaminophen 500 mg tablet 1,000 mg PO Q6HPRN PRN mild pain 04/01/23 12/08/23 History
(Tylenol Extra Strength)
pyridoxine (vitamin B6) 50 mg 50 mg PO DAILY Supplement 04/01/23 12/08/23 History
tablet (Vitamin B-6)
pantoprazole 40 mg tablet,delayed 40 mg PO BID #60 tabs 04/09/23 12/08/23 Rx
release
albuterol sulfate 2.5 mg/3 mL 2.5 mg inhalation R Q48H 12/08/23 12/08/23 History
(0.083 %) solution for nebulization Lung/Breathing Issues
ascorbic acid (vitamin C) 500 mg 500 mg PO DAILY Supplement 12/08/23 12/08/23 History
tablet (Vitamin C)
budesonide 0.5 mg/2 mL suspension 0.5 mg inhalation R Q48H 12/08/23 12/08/23 History
for nebulization Lung/Breathing Issues
dabigatran etexilate 150 mg 150 mg PO BID Blood Clot 12/08/23 12/08/23 History
capsule (Pradaxa) Prevention/Tx
fluticasone fur. 200 mcg-umeclid 1 inh inhalation R Q48H 12/08/23 12/08/23 History
62.5 mcg-vilant 25 mcg Lung/Breathing Issues
inhalat.powder (Trelegy Ellipta)
furosemide 40 mg tablet 40 mg PO DAILY Fluid 12/08/23 12/08/23 History
Retention/Swelling
gabapentin 300 mg capsule 300 mg PO DAILY pain 12/08/23 12/08/23 History
ipratropium bromide 0.02 % 2.5 ml inhalation R Q48H Allergies 12/08/23 12/08/23 History
solution for inhalation
Review of Systems
-
All other systems: Negative unless noted
Constitutional: Weight Gain
Respiratory: Trouble Breathing (on exertion )
Physical Exam
Vital Signs
Temp Pulse Resp BP Pulse Ox
98.0 F 80 16 118/59 95
12/09/23 07:30 12/09/23 10:12 12/09/23 10:12 12/09/23 08:15 12/09/23 08:48
Lab Results
12/09/23 06:45
12/09/23 06:45
Troponin I < 0.012 ng/ml 12/08/23 16:48
Bby-G-Quwmdniwjfn Pept 2340 pg/ml 12/08/23 16:48
Physical Exam
General: No Apparent Distress
HEENT: Moist Mucous Membranes
Respiratory: Clear
Cardiac: Regular Rhythm; Negative Murmur, Rub, Peripheral Edema or JVD
GI: Soft, Non Tender, Normal Bowel Sounds, Distended and Other (dullness to percussion )
Musculoskeletal: No Edema
Neuro: AO x 3
Hematologic/Lymphatic: No Lymphadenopathy
Psych: Calm
Impression / Plan
-
78-year-old male with history of chronic HFrEF, paroxysmal atrial fibrillation with AICD , CAD s/p CABG, bioprosthetic valve presented to the ED with weight gain, abnormal creatinine values. Cardiology was consulted for CHF evaluation and
treatment.
Impression
Acute on chronic HFrEF
CKD stage III
Paroxysmal atrial fibrillation
History of CAD
Hypertension
Hyperlipidemia
Assessment and plan
Acute on chronic HFrEF
Weight has increased to 86 kg above dry weight 74 to 77 kg
Continue Lasix 80 mg IV twice daily
Monitor daily intake and UO
Serum creatinine 2.6
Daily weight check
Echocardiogram 12/08 shows left ventricular ejection fraction 30 to 35% (no change from previous ) with normal functioning bioprosthetic aortic valve, the peak/mean gradient of aortic valve 18/9 mmHg. PASP elevated from 41 to 46 mmHg. No AR.
Mild/moderate TR.
CKD stage III
Creatinine is 2.6
Trend creatinine levels
Paroxysmal atrial fibrillation
AICD
Continue dabigatran 150 mg and carvedilol 6.25
# History of CAD s/p CABG
# Hypertension
# Hyperlipidemia
Data Reviewed
-
EKG: Tracing Personally Visualized and interpreted, Report Reviewed by me and Discussed with Physician
Medical Tests (Nuc Med, Echo etc): Report Reviewed by me and Discussed with Physician
Labs: Labs Reviewed by me and Discussed with Physician
--- NOTE | 2023-12-09 17:00 | TRANSFER ---
Pt admitted into room 423 from the ED, arrived in bed. AAOx3, denies pain. Pt oriented to room and plan of care. Call erazo within reach.
[2023-12-09] MEDS: PRADAXA 75 MG PO (20:16)
[2023-12-09] MEDS: LIPITOR 40 MG PO (21:20)
[2023-12-09] MEDS: TYLENOL 650 MG PO (21:52)
[2023-12-10] VITALS (7 sets, daily range): BP systolic 108–147; BP diastolic 61–81; PULSE 58; O2SAT 95; BMI 25.2
[2023-12-10] MEDS: PULMICORT 0.5 MG INH (07:46)
[2023-12-10] MEDS: VENTOLIN NEBULES 2.5 MG INH (07:47)
[2023-12-10] MEDS: ATROVENT NEBULES 0.5 MG INH (07:47)
[2023-12-10 08:38] LABS: Mean Corp Hgb Conc. 33.3 g/dL (33.0-37.0); Mean Corpuscular Hgb 29.6 pg (27.0-31.0); Mean Corpuscular Volume 88.9 fL (80.0-94.0); Mean Platelet Volume 10.6 fL (7.4-10.4); Platelet Count 236 10^3/uL (130-400); Red Blood Cell Count 4.05 10^6/uL (4.70-6.10); Red Cell Dist. Width 13.5 % (11.5-14.5); White Blood Cell Count 8.3 10^3/uL (4.8-10.8)
[2023-12-10 09:17] LABS: Blood Urea Nitrogen 37 mg/dl (9-20); Calcium 10.3 mg/dl (8.4-10.2); Carbon Dioxide 28 mmol/L (22-30); Chloride 102 mmol/L (98-107); Estimated Creatinine Clearance 27 ml/min; Glucose 104 mg/dl (70-99); Potassium 4.1 mmol/L (3.5-5.1); Sodium 143 mmol/L (135-145); eGFR 25.82
--- NOTE | 2023-12-10 09:48 | W.PN.CD ---
Addendum entered and electronically signed by Subhash Baig MD 12/10/23 15:34:
I interviewed and examined the patient independently. I discussed the plan with resident MD Dr Mullins. I agree with the H/P, with any changes/additions per this addendum.
78 yo male with PMH of CAD and , s/p CABG and bio-AVR 2017, prior stenting 2004, ICM EF 30-35%, ICD, CKD3b-->4, paroxysmal A fib on pradaxa, is admitted with acute on chronic systolic HF. Exam with RRR, no murmurs, no edema, + abdominal
distention, +JVD. Cr 2.5. Tele: AsVp. Brief NSVT.
Continue lasix 80mg IV bid, with close monitoring of weight, labs, tele.
NSVT. Asymptomatic on tele. ICD in place. Continue coreg.
Original Note:
Today's Communication / Plan
-
continue IV lasix 80 mg BID
monitor closely weight, I/O
Impression / Plan
-
78-year-old male with history of chronic HFrEF, paroxysmal atrial fibrillation with AICD , CAD s/p CABG, bioprosthetic valve presented to the ED with weight gain, abnormal creatinine values. Cardiology was consulted for CHF evaluation and
treatment.
Impression
Acute on chronic HFrEF
CKD stage III
Paroxysmal atrial fibrillation
History of CAD
Hypertension
Hyperlipidemia
Assessment and plan
Acute on chronic HFrEF
Weight has reduced from 86 kg to 84 kg
Continue to diurese with Lasix 80 mg IV twice daily
If weight remains constant, plan will be to add metolazone to boost diuresis
Monitor daily intake and UO
Serum creatinine now 2.5<2.6
Daily weight check
Echocardiogram 12/08 shows left ventricular ejection fraction 30 to 35% (no change from previous ) with normal functioning bioprosthetic aortic valve, the peak/mean gradient of aortic valve 18/9 mmHg. PASP elevated from 41 to 46 mmHg. No AR.
Mild/moderate TR.
CKD stage III
Creatinine is 2.5
Trend creatinine levels
Paroxysmal atrial fibrillation
AICD
Continue dabigatran 150 mg and carvedilol 6.25
# History of CAD s/p CABG
# Hypertension
# Hyperlipidemia
Physical Exam
Vital Signs/Labs
Vital Signs
Temp Pulse Resp BP Pulse Ox
97.9 F 80 16 147/81 97
12/10/23 07:10 12/10/23 07:50 12/10/23 07:50 12/10/23 07:10 12/10/23 07:50
12/09/23 12/10/23 12/11/23
06:59 06:59 06:59
Actual Weight 85.865 kg 84.368 kg
12/10/23 07:18
12/10/23 07:18
Magnesium 2.5 mg/dl (1.6-2.3) H 12/09/23 06:45
TSH 0.89 uIU/ml (0.47-4.68) 12/09/23 06:45
12/08/23
16:48
Nck-C-Obiwbcbpzgl Pept 2340
LAB Results
12/08/23
16:48
Troponin I < 0.012
Physical Exam
Constitutional: Comfortable
Cardiovascular: Rhythm & rate is regular, Pedal edema is absent, JVD present and Murmur/rub/gallop absent
Respiratory: Lungs clear to auscul.
GI: Soft and Distention present
Neuro/Psych: AO x 3
Data Reviewed
-
Date of Service: December 10, 2023
Echo: Report Reviewed by me and Ordered by me
Labs: Labs Reviewed by me and Labs Ordered by me
[2023-12-10] MEDS: VITAMIN C 500 MG PO (09:54)
[2023-12-10] MEDS: KCL 20 MEQ PO (09:55)
[2023-12-10] MEDS: PROTONIX 40 MG PO ×2 (09:56→19:44)
[2023-12-10] MEDS: NEURONTIN 300 MG PO (09:56)
[2023-12-10] MEDS: VITAMIN B-6 50 MG PO (09:56)
[2023-12-10] MEDS: COREG 6.25 MG PO ×2 (09:56→20:02)
[2023-12-10] MEDS: PRADAXA 75 MG PO ×2 (09:56→19:44)
[2023-12-10] MEDS: LASIX 80 MG IV ×2 (09:57→17:24)
--- NOTE | 2023-12-10 10:00 | PTCARENOTE ---
Patient with non-sustained VT run (17 beats). Now back in SR with BBB and PVC's. Asymptomatic. Covering provider made aware.
--- NOTE | 2023-12-10 10:00 | W.PN.HOSP.TC ---
Addendum entered and electronically signed by Florian Frazier MD 12/10/23 23:08:
Attending Addendum-
I saw and evaluated the patient. I reviewed the resident�s note and agree with findings and plan as documented in the resident�s note. Sub: seen with present. Patient continues to feel weak is sob on exertion. abdominal distention still
present. Full 12 point ROS reviewed and negative except as documented Exam: Vitals reviewed in chart GEN-NAD neck- + JVD heart RRR lungs no BS RUL, richard crackles at bases abd distended pos BS NT Ext no edema
Plan:
#AE HFrEF
- monitor on tele
- Cardiology input appreciated
- cont IV Lasix 80mg BID
- cont coreg
- has AICD/PM
- Echo 12/08-Left ventricular ejection fraction is 30-35%
Stage II diastolic dysfunction filling pressures.
Normally functioning bioprosthetic aortic valve
- strict I and O follow daily weights 86->84kgs
- dry weight @ 77kgs
#RACHELE on CKD stage 3B
- baseline cr @ 2
- atrophic rt kidney
- if cr worsens c/s nephro
- patient refusing HD if needed
-monitor BMP
# Permanent Atrial Fibrillation
- has pacer
- cont coreg
- renally dosed pradaxa
- monitor on tele
#COPD
- not in AE
- continue albuterol, budesonide, hold trelegy
- PRN DuoNeb
#
- bio AVR 2018
- normally functioning per echo
# HTN
- continue carvedilol
#CAD
- s/p stent and CABG-2 vessel
# Lung ca
- s/p RUL resection
- care per onc as OP
#HLD
- continue atorvastatin
# Peripheral Neuropathy
- renally dose gabapentin
# Hypermagnesemia
- dc supplement
# GERD
- cont protonix
Full Code->DNR->Full
DVT Px: Pradaxa
Dispo- hopeful eventual DC home with VN/
Time spent coordinating care, review of plan of care with resident, personally reviewed records in EMR, med rec, consults, notes, labs, radiology, d/w nursing cards � 58 mins
Original Note:
Today's Communication/Plan
-
Continue IV lasix
Assessment / Plan
Assessment / Plan
78-year-old male with past medical history of HFrEF presented to ED after forensic science examiner recommendation. Increasing 10 to 15 pounds over the past month. Last week cardiology increase Lasix to 80 mg twice daily without improvement. Baseline weight
160 pounds. Baseline shortness of breath with history of COPD. Patient states he accumulates fluid in his abdomen more than his lower extremities.
# Acute on chronic heart failure exacerbation
Myocardial pulmonary edema on chest x-ray
Increased SOB, JVD, abdominal distension
Decreased breath sounds bilaterally, no crackles, no lower extremity swelling
Admit to telemetry
Continue IV Lasix 80 mg twice daily per cards
Echo EF 30-35% no significant change from prior
Moderately reduced left ventricular systolic function. Left ventricular
ejection fraction is 30-35%
Stage II diastolic dysfunction
Normally functioning bioprosthetic aortic valve
Strict I's and O's
Daily weights
Last echo 03/17/2023 LVEF 30-35%
BNP 2340
Troponin negative
86->84kg today
Cards following
#COPD
Continue albuterol, budesonide, fluticasone home meds as needed
DuoNebs as needed
#Hypertension
Continue carvedilol
#CAD status post CABG
#Hyperlipidemia
Continue atorvastatin
#A-fib
Patient with a ACID
Continue anti-coag with dabigatran
Continue for carvedilol, Pradaxa
#CKD stage IV - gfr 24.63
Creatinine 2.5, baseline 2.3
Right atrophic kidney and bilateral nephrolithiasis noted on ab/pelvic CT could be contributing
Not interested in dialysis if Cr worsens
Dabigatran renal dosing 75mg BID
Monitor BMP
#Hypermagnesemia
resolved
#Liver 1.9cm low-density patient left upper left lobe liver
Unchanged from prior CT
Normal LFTs
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
Follow-up in outpatient
#Bilateral nephrolithiasis
Asymptomatic
f/u in outpatient
Has had prior kidney stone removal 2021
#Mild fusiform dilation of abdominal aorta
2.8 cm, stable from prior CT
#Hx peptic ulcer disease
- continue pantoprazole 40 BID
#L leg sciatica/peripheral neuropathy
- continue gabapentin
#Hx severe aortic valve stenosis s/p bio AVR and CABGx2 05/2017 LOGAN-LAD, VG-PDA. Stable on echo 03/2023
#Hx of thoracic ascending aortic aneurysm s/p aortic tube graft replacement 2017
#hx of dilated aortic root
#hx of ischemic cardiomyopathy
#hx a.fib now AICD
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
#hx thyroid cancer s/p thyroidectomy 2010
#Hx L inguinal hernia s/p repair 11/19/2021
#hx lung cancer s/p RUL lobectomy 2010
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
#hx R eye cataracts
#Hx CVA
#hx [place]/PCI 2004
DVT - Dabigatran renal dosing
Full Code
Anticipated Discharge: 24 - 48 hours
Subjective/Interval History
-
Date of Service: December 10, 2023
Objective Data
-
Labs:
Laboratory Results
12/10/23
07:18
WBC 8.3
Hgb 12.0 L
Hct 36.0 L
Plt Count 236
Sodium 143
Potassium 4.1
Chloride 102
Carbon Dioxide 28
BUN 37 H
Creatinine 2.5 H
Glucose 104 H
Calcium 10.3 H
Vital Signs:
Vital Signs
Temp Pulse Resp BP Pulse Ox
97.9 F 80 16 147/81 97
12/10/23 07:10 12/10/23 09:57 12/10/23 07:50 12/10/23 09:57 12/10/23 07:50
I&O
12/09/23 12/10/23 12/11/23
06:59 06:59 06:59
Intake Total 840 / 840
Output Total 2074 / 2074
Balance -1235 / -1235
Review of Systems
-
History Source: Patient
Constitutional: Reports Fatigue
Respiratory: Reports No Symptoms
Cardiac: Reports No Symptoms
Abdomen/GI: Reports Other (Abdominal distension/discomfort)
Genitourinary: Reports No Symptoms
Neuro: Reports No Symptoms
Physical Exam
-
General: No Apparent Distress
Respiratory: Clear to Auscultation
Cardiac: Regular Rhythm, S1/S2 and Murmur
GI: Soft, Nontender, Normal Bowel Sounds and Distended
Musculoskeletal: Negative Edema, Right Lower Extrem or Edema, Left Lower Extrem
Skin: Warm
Neuro: AO x 3
Psych: Calm
[2023-12-10 10:39] LABS: Magnesium 2.2 mg/dl (1.6-2.3)
[2023-12-10] MEDS: TYLENOL 650 MG PO ×3 (10:40→23:48)
--- NOTE | 2023-12-10 15:00 | CM ---
Patient seen bedside with , initial assessment completed. Patient resides with in a multiple story home, four steps to enter. Patient uses walking sticks to assist with ambulation. Patient reports history of [facility] in past, [facility] and
[facility] in past. Patient PCP Patric Riley, [facility], confirms prescription coverage. Patient denies insecurities at home. CM will continue to follow for all discharge planning needs.
Plan; home with , watch for VN needs.
--- NOTE | 2023-12-10 17:35 | PTCARENOTE ---
Went to apply DNR bracelet but after speaking with patient, patient states that he would want to be resuscitated.
He would only not want to have prolonged suffering if he were brain damaged. Will clarify with MD. Did not apply bracelet.
[2023-12-10] MEDS: LIPITOR 40 MG PO (21:56)
[2023-12-10] MEDS: NEURONTIN 600 MG PO (21:57)
[2023-12-11 03:29] VITALS: BP 124/66
[2023-12-11 05:57] VITALS: BMI 25.3
[2023-12-11 07:10] VITALS: BP 128/61
[2023-12-11] MEDS: PULMICORT 0.5 MG INH (07:53)
[2023-12-11] MEDS: VENTOLIN NEBULES 2.5 MG INH (07:53)
[2023-12-11] MEDS: ATROVENT NEBULES 0.5 MG INH (07:53)
[2023-12-11] MEDS: COREG 6.25 MG PO ×2 (08:07→19:48)
[2023-12-11] MEDS: VITAMIN C 500 MG PO (08:07)
[2023-12-11] MEDS: PRADAXA 75 MG PO ×2 (08:08→19:48)
[2023-12-11] MEDS: KCL 20 MEQ PO (08:08)
[2023-12-11] MEDS: LASIX 80 MG IV ×2 (08:09→16:03)
[2023-12-11] MEDS: VITAMIN B-6 50 MG PO (08:09)
[2023-12-11] MEDS: NEURONTIN 200 MG PO (08:09)
[2023-12-11] MEDS: PROTONIX 40 MG PO ×2 (08:09→19:48)
[2023-12-11 08:23] LABS: Hematocrit 36.4 % (39.0-52.0); Hemoglobin 12.2 g/dL (13.0-18.0); Mean Corp Hgb Conc. 33.5 g/dL (33.0-37.0); Mean Corpuscular Hgb 30.5 pg (27.0-31.0); Mean Platelet Volume 10.6 fL (7.4-10.4); Platelet Count 222 10^3/uL (130-400); Red Cell Dist. Width 13.4 % (11.5-14.5); White Blood Cell Count 8.6 10^3/uL (4.8-10.8)
--- NOTE | 2023-12-11 08:57 | W.PN.CD ---
Today's Communication / Plan
-
Continue 80 IV Lasix twice daily
Add metolazone pending a.m. labs
Impression / Plan
-
78-year-old male with history of chronic HFrEF, paroxysmal atrial fibrillation with AICD , CAD s/p CABG, bioprosthetic valve presented to the ED with weight gain, abnormal creatinine values. Cardiology was consulted for CHF evaluation and
treatment.
Impression
Acute on chronic HFrEF
CKD stage III
Paroxysmal atrial fibrillation
History of CAD
Hypertension
Hyperlipidemia
Assessment and plan
Acute on chronic HFrEF
Weight 86 kg on admission (unknown dry weight)
Continue to diurese with Lasix 80 mg IV twice daily
Add metolazone today to boost diuresis once a.m. labs result
Monitor daily intake and UO
Daily weight check
Echocardiogram 12/08 shows left ventricular ejection fraction 30 to 35% (no change from previous ) with normal functioning bioprosthetic aortic valve, the peak/mean gradient of aortic valve 18/9 mmHg. PASP elevated from 41 to 46 mmHg. No AR.
Mild/moderate TR.
Continue carvedilol. Other GDMT limited by CKD.
CKD stage III
Trend creatinine levels with diuresis
Paroxysmal atrial fibrillation
AICD
Continue dabigatran 150 mg and carvedilol 6.25
# History of CAD s/p CABG
# Hypertension
# Hyperlipidemia
Subjective: He feels about the same since admission. Weight is stable today. Telemetry with frequent PVCs and 6 beat run of NSVT.
Physical Exam
Vital Signs/Labs
Vital Signs
Temp Pulse Resp BP Pulse Ox
98.1 F 72 16 128/61 94
12/11/23 07:10 12/11/23 07:56 12/11/23 07:56 12/11/23 08:09 12/11/23 07:56
12/10/23 12/11/23 12/12/23
06:59 06:59 06:59
Actual Weight 84.368 kg 84.567 kg
12/11/23 06:53
Magnesium 2.2 mg/dl (1.6-2.3) 12/10/23 07:18
TSH 0.89 uIU/ml (0.47-4.68) 12/09/23 06:45
12/08/23
16:48
Imy-A-Mjeinkexqxd Pept 2340
LAB Results
12/08/23
16:48
Troponin I < 0.012
Physical Exam
Constitutional: No acute distress and Comfortable
Cardiovascular: Rhythm & rate is regular, Pedal edema is absent, JVD present and Murmur/rub/gallop absent
Respiratory: Respiratory effort normal and Lungs clear to auscul.
GI: Soft and Distention present
Data Reviewed
-
Date of Service: December 11, 2023
Medical Decision Making: Reviewed Test Results, Independent Historian Assessment, Test Interpretation and Review of Case with other Provider
EKG: Tracing Personally Visualized and interpreted
Echo: Report Reviewed by me
Labs: Labs Reviewed by me
Total Time Spent with Patient (in minutes): 35
[2023-12-11 09:04] LABS: Blood Urea Nitrogen 39 mg/dl (9-20); Calcium 10.5 mg/dl (8.4-10.2); Carbon Dioxide 26 mmol/L (22-30); Chloride 101 mmol/L (98-107); Estimated Creatinine Clearance 27 ml/min; Glucose 97 mg/dl (70-99); Potassium 3.8 mmol/L (3.5-5.1); Sodium 140 mmol/L (135-145); eGFR 25.82
[2023-12-11] MEDS: TYLENOL 650 MG PO ×3 (09:41→23:39)
--- NOTE | 2023-12-11 09:54 | W.PN.HOSP.TC ---
Addendum entered and electronically signed by Florian Frazier MD 12/11/23 23:06:
Attending Addendum-
I saw and evaluated the patient. I reviewed the resident�s note and agree with findings and plan as documented in the resident�s note. Sub: seen with present. worsening sob on exertion. appears ill. abdominal distention still present. Full 12
point ROS reviewed and negative except as documented Exam: Vitals reviewed in chart GEN-NAD neck- + JVD heart RRR lungs no BS RUL, faint crackles at bases abd distended pos BS NT Ext no edema
Plan:
#AE HFrEF
- monitor on tele
- Cardiology input appreciated
- cont IV Lasix 80mg BID
- add metolazone
- cont coreg
- has AICD/PM
- Echo 12/08-Left ventricular ejection fraction is 30-35%
Stage II diastolic dysfunction filling pressures.
Normally functioning bioprosthetic aortic valve
- strict I and O follow daily weights 84->84kgs
- dry weight @ 77kgs
- t/c pall care c/s
#RACHELE on CKD stage 3B progression to CKD 4
- previous baseline cr @ 2 likely new baseline @ 2.5
- atrophic rt kidney
- if cr worsens c/s nephro
- patient refusing HD if needed
-monitor BMP
# Permanent Atrial Fibrillation
- has pacer
- cont coreg
- renally dosed pradaxa
- monitor on tele
#COPD
- not in AE
- continue albuterol, budesonide, hold trelegy
- PRN DuoNeb
#
- bio AVR 2018
- normally functioning per echo
# HTN
- continue carvedilol
#CAD
- s/p stent and CABG-2 vessel
# Lung ca
- s/p RUL resection
- care per onc as OP
#HLD
- continue atorvastatin
# Peripheral Neuropathy
- renally dose gabapentin
# Hypermagnesemia
- dc supplement
# GERD
- cont protonix
Full Code->DNR->Full
DVT Px: Pradaxa
Dispo- likely will need snf PT OT c/s
Time spent coordinating care, review of plan of care with resident, personally reviewed records in EMR, med rec, consults, notes, labs, radiology, d/w nursing cards � 59 mins
Original Note:
Today's Communication/Plan
-
Metolazone added per cards
Assessment / Plan
Assessment / Plan
78-year-old male with past medical history of HFrEF presented to ED after naval surface fire support planner recommendation. Increasing 10 to 15 pounds over the past month. Last week cardiology increase Lasix to 80 mg twice daily without improvement. Baseline weight
160 pounds. Baseline shortness of breath with history of COPD. Patient states he accumulates fluid in his abdomen more than his lower extremities.
# Acute on chronic heart failure exacerbation
Myocardial pulmonary edema on chest x-ray
Increased SOB, JVD, abdominal distension
Decreased breath sounds bilaterally, no crackles, no lower extremity swelling
Admit to telemetry
Continue IV Lasix 80 mg twice daily per cards
Echo EF 30-35% no significant change from prior
Moderately reduced left ventricular systolic function. Left ventricular
ejection fraction is 30-35%
Stage II diastolic dysfunction
Normally functioning bioprosthetic aortic valve
Strict I's and O's
Daily weights
Last echo 03/17/2023 LVEF 30-35%
BNP 2340
Troponin negative
84 ->84kg no change
Adding metolazone per cards for additional diuresis
Cards following
#COPD
Continue albuterol, budesonide, fluticasone home meds as needed
DuoNebs as needed
#Hypertension
Continue carvedilol
#CAD status post CABG
#Hyperlipidemia
Continue atorvastatin
#Paroxysmal a.fib
Patient with a ACID
Continue anti-coag with dabigatran
Continue for carvedilol, Pradaxa
#CKD stage IV - gfr 24.63
Creatinine 2.5, baseline 2.3
Right atrophic kidney and bilateral nephrolithiasis noted on ab/pelvic CT could be contributing
Not interested in dialysis if Cr worsens
Dabigatran renal dosing 75mg BID
Monitor BMP
#Hypermagnesemia
resolved
#Liver 1.9cm low-density patient left upper left lobe liver
Unchanged from prior CT
Normal LFTs
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
Follow-up in outpatient
#Bilateral nephrolithiasis
Asymptomatic
f/u in outpatient
Has had prior kidney stone removal 2021
#Mild fusiform dilation of abdominal aorta
2.8 cm, stable from prior CT
#Hx peptic ulcer disease
- continue pantoprazole 40 BID
#L leg sciatica/peripheral neuropathy
- continue gabapentin
#Hx severe aortic valve stenosis s/p bio AVR and CABGx2 05/2017 LOGAN-LAD, VG-PDA. Stable on echo 03/2023
#Hx of thoracic ascending aortic aneurysm s/p aortic tube graft replacement 2017
#hx of dilated aortic root
#hx of ischemic cardiomyopathy
#hx a.fib now AICD
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
#hx thyroid cancer s/p thyroidectomy 2010
#Hx L inguinal hernia s/p repair 11/19/2021
#hx lung cancer s/p RUL lobectomy 2010
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
#hx R eye cataracts
#Hx CVA
#hx [place]/PCI 2004
DVT - Dabigatran renal dosing
Full Code
Anticipated Discharge: 24 - 48 hours
Subjective/Interval History
-
Date of Service: December 11, 2023
Objective Data
-
Labs:
Laboratory Results
12/11/23
06:53
WBC 8.6
Hgb 12.2 L
Hct 36.4 L
Plt Count 222
Sodium 140
Potassium 3.8
Chloride 101
Carbon Dioxide 26
BUN 39 H
Creatinine 2.5 H
Glucose 97
Calcium 10.5 H
Vital Signs:
Vital Signs
Temp Pulse Resp BP Pulse Ox
98.1 F 72 16 128/61 94
12/11/23 07:10 12/11/23 07:56 12/11/23 07:56 12/11/23 08:09 12/11/23 07:56
I&O
12/10/23 12/11/23 12/12/23
06:59 06:59 06:59
Intake Total 840 / 840 1560 / 1560
Output Total 2074 / 2074 1550 / 1550
Balance -1235 / -1235
Review of Systems
-
History Source: Patient
Respiratory: Reports No Symptoms
Cardiac: Reports No Symptoms
Abdomen/GI: Reports Other (Abdominal distension)
Neuro: Reports No Symptoms
Physical Exam
-
HEENT: Normocephalic
Respiratory: Clear to Auscultation
Cardiac: Regular Rhythm and S1/S2
GI: Soft, Nontender and Distended
Skin: Warm
Neuro: AO x 3
Psych: Calm
--- NOTE | 2023-12-11 10:48 | CM ---
Addendum entered by Анна Cortes 12/11/23 11:34:
Patient seen bedside with , discussed recommendations of home health, undecided at this time. CM will continue to follow/offer VN.
Original Note:
CM reviewed chart, per PT, recommending home health for patient. Patient reports his will be here in about an hour, requesting CM return to discuss with . CM will continue to follow for all discharge planning needs.
Plan; home with VN, will discuss with .
[2023-12-11 11:10] VITALS: BP 116/69
[2023-12-11] MEDS: ZAROXOLYN 5 MG PO (11:21)
[2023-12-11 14:14] VITALS: BP 104/76; PULSE 65; O2SAT 98
[2023-12-11 15:33] VITALS: BP 106/74
--- NOTE | 2023-12-11 15:39 | PN.CDI ---
CDI
- -
CDI:
Physician Documentation Request
Admit Date: 12/08/23 23:55
Dear Doctor Jasen,
Patient admitted with exacerbation of heart failure. Patient has noted afib by hospitalist and cardiology.
Hospitalist progress notes refer to the atrial fib as permanent.
Cardiology progress notes state paroxysmal.
In attempt to clarify potentially conflicting documentation, please clarify:
Paroxysmal atrial fibrillation - terminates spontaneously or with intervention within 7 days of onset
Permanent atrial fibrillation - when a decision has been made to accept the presence of AF and there is no further attempt to restore or maintain sinus rhythm
Other - please specify
Use of terms such as suspected, likely, concern for, or probable (associated with a specific diagnosis that is being evaluated, monitored, or treated as if it exists) are acceptable and can be coded in the inpatient setting, when documented at the
time of discharge.
Thank you,
Danica Pena RN, BSN
CDI Specialist
tiger text
Please use your independent medical judgment in providing your response.
--- NOTE | 2023-12-11 15:45 | PN.CDI ---
CDI
- -
CDI:
Physician Documentation Request
Admit Date: 12/08/23 23:55
Dear Doctor Jasen,
12/09 hospitalist progress note contains a diagnosis of CKD.
'RACHELE on CKD stage 3B' and further down in same note 'CKD stage IV'
In an attempt to clarify potentially conflicting documentation, please clarify which of the following accurately represents the patient's renal status:
____ - CKD 3B
____ - CKD IV
____ - Other
Stages of Chronic Kidney Disease*
Level Description GFR
G1 Normal or High >90
G2 Mildly decreased 60-89
G3a Mildly to moderately decreased 45-59
G3b Moderately to severely decreased 30-44
G4 Severely decreased 15-29
G5 Kidney failure <15
Use of terms such as suspected, likely, concern for, or probable (associated with a specific diagnosis that is being evaluated, monitored, or treated as if it exists) are acceptable and can be coded in the inpatient setting, when documented at the
time of discharge.
Thank you,
Danica Pena RN, BSN
CDI Specialist
tiger text
Please use your independent medical judgment in providing your response.
*Source: Kidney Disease: Improving Global Outcomes (KDIGO) 2012
[2023-12-11 19:51] VITALS: BP 124/83
[2023-12-11] MEDS: LIPITOR 40 MG PO (21:12)
[2023-12-11] MEDS: NEURONTIN 400 MG PO (21:12)
[2023-12-12] VITALS (8 sets, daily range): BP systolic 107–150; BP diastolic 61–83; PULSE 67; O2SAT 95; BMI 25.0
[2023-12-12] MEDS: ATROVENT NEBULES 0.5 MG INH (07:45)
[2023-12-12] MEDS: PULMICORT 0.5 MG INH (07:45)
[2023-12-12] MEDS: VENTOLIN NEBULES 2.5 MG INH (07:45)
[2023-12-12 08:11] LABS: Hematocrit 39.7 % (39.0-52.0); Hemoglobin 13.4 g/dL (13.0-18.0); Mean Corp Hgb Conc. 33.8 g/dL (33.0-37.0); Mean Corpuscular Hgb 30.3 pg (27.0-31.0); Mean Corpuscular Volume 89.8 fL (80.0-94.0); Mean Platelet Volume 10.7 fL (7.4-10.4); Platelet Count 245 10^3/uL (130-400); Red Blood Cell Count 4.42 10^6/uL (4.70-6.10); Red Cell Dist. Width 13.2 % (11.5-14.5); White Blood Cell Count 9.9 10^3/uL (4.8-10.8)
[2023-12-12] MEDS: COREG 6.25 MG PO ×2 (08:13→19:54)
[2023-12-12] MEDS: KCL 20 MEQ PO (08:13)
[2023-12-12] MEDS: VITAMIN B-6 50 MG PO (08:13)
[2023-12-12] MEDS: ZAROXOLYN 5 MG PO (08:14)
[2023-12-12] MEDS: PRADAXA 75 MG PO ×2 (08:14→19:54)
[2023-12-12] MEDS: LASIX 80 MG IV ×2 (08:14→15:12)
[2023-12-12] MEDS: PROTONIX 40 MG PO ×2 (08:14→19:54)
[2023-12-12] MEDS: NEURONTIN 200 MG PO (08:14)
[2023-12-12] MEDS: VITAMIN C 500 MG PO (08:14)
[2023-12-12 08:38] LABS: ALT (SGPT) 17 U/L (0-50); AST (SGOT) 16 U/L (17-59); Albumin 4.2 g/dl (3.5-5.0); Alkaline Phosphatase 111 U/L (38-126); Blood Urea Nitrogen 43 mg/dl (9-20); Calcium 10.6 mg/dl (8.4-10.2); Carbon Dioxide 25 mmol/L (22-30); Chloride 96 mmol/L (98-107); Estimated Creatinine Clearance 28 ml/min; Glucose 108 mg/dl (70-99); Potassium 3.5 mmol/L (3.5-5.1); Sodium 139 mmol/L (135-145); Total Bilirubin 0.9 mg/dl (0.2-1.3); Total Protein 7.3 g/dl (6.3-8.2); eGFR 27.11
--- NOTE | 2023-12-12 09:05 | W.PN.CD ---
Today's Communication / Plan
-
Continue diuresis with Lasix and metolazone
Impression / Plan
-
78-year-old male with history of chronic HFrEF, paroxysmal atrial fibrillation with AICD , CAD s/p CABG, bioprosthetic valve presented to the ED with weight gain, abnormal creatinine values. Cardiology was consulted for CHF evaluation and
treatment.
Impression
Acute on chronic HFrEF
CKD stage III
Paroxysmal atrial fibrillation
History of CAD
Hypertension
Hyperlipidemia
Assessment and plan
Acute on chronic HFrEF
Weight 86 kg on admission (unknown dry weight)
Continue to diurese with Lasix 80 mg IV twice daily + metolazone 5 mg daily
Monitor daily intake and UO
Daily weight check
Echocardiogram 12/08 shows left ventricular ejection fraction 30 to 35% (no change from previous ) with normal functioning bioprosthetic aortic valve, the peak/mean gradient of aortic valve 18/9 mmHg. PASP elevated from 41 to 46 mmHg. No AR.
Mild/moderate TR.
Continue carvedilol. Other GDMT limited by CKD.
CKD stage III
Trend creatinine levels with diuresis
Paroxysmal atrial fibrillation
AICD
Continue dabigatran 150 mg and carvedilol 6.25
# History of CAD s/p CABG
# Hypertension
# Hyperlipidemia
Subjective: He feels about the same since admission. Not short of breath but he says his is usually the one who notices this. Weight is down 1 kg with addition of metolazone yesterday. No events on telemetry.
Physical Exam
Vital Signs/Labs
Vital Signs
Temp Pulse Resp BP Pulse Ox
98.1 F 67 16 118/69 96
12/12/23 07:10 12/12/23 07:47 12/12/23 07:47 12/12/23 08:13 12/12/23 07:47
12/11/23 12/12/23 12/13/23
06:59 06:59 06:59
Actual Weight 84.567 kg 83.518 kg
12/12/23 06:43
12/12/23 06:43
Magnesium 2.2 mg/dl (1.6-2.3) 12/10/23 07:18
TSH 0.89 uIU/ml (0.47-4.68) 12/09/23 06:45
12/08/23
16:48
Ial-A-Fawlcmvfjcs Pept 2340
Physical Exam
Constitutional: No acute distress and Comfortable
Cardiovascular: Rhythm & rate is regular, Pedal edema is absent, Murmur/rub/gallop absent and Other (Difficult to assess JVD)
Respiratory: Respiratory effort normal and Lungs clear to auscul.
GI: Soft and Distention present
Data Reviewed
-
Date of Service: December 12, 2023
Medical Decision Making: Reviewed Test Results, Independent Historian Assessment, Test Interpretation and Review of Case with other Provider
EKG: Tracing Personally Visualized and interpreted
Echo: Report Reviewed by me
Labs: Labs Reviewed by me
--- NOTE | 2023-12-12 10:04 | W.PN.HOSP.TC ---
Addendum entered and electronically signed by Florian Frazier MD 12/12/23 21:47:
Attending Addendum-
I saw and evaluated the patient. I reviewed the resident�s note and agree with findings and plan as documented in the resident�s note. Sub: seen with son present. continues to feel weak. pos HYDE/orthopnea. appears ill. abdominal distention still
present. Full 12 point ROS reviewed and negative except as documented Exam: Vitals reviewed in chart GEN-NAD neck- + JVD heart RRR lungs no BS RUL, faint crackles at bases abd distended pos BS NT Ext no edema
Plan:
#AE HFrEF
- monitor on tele
- Cardiology input appreciated
- cont aggressive diuresis with IV Lasix 80mg BID
- cont metolazone
- cont coreg
- has AICD/PM
- Echo 12/08-Left ventricular ejection fraction is 30-35%
Stage II diastolic dysfunction filling pressures.
Normally functioning bioprosthetic aortic valve
- strict I and O follow daily weights 86->83kgs
- dry weight @ 77kgs
- t/c pall care c/s
#RACHELE on CKD stage 3B progression to CKD 4
- previous baseline cr @ 2 likely new baseline @ 2.5
- atrophic rt kidney
-monitor BMP
# Paroxysmal Atrial Fibrillation
- has pacer
- cont coreg
- renally dosed pradaxa
- monitor on tele
#COPD
- not in AE
- continue albuterol, budesonide, hold trelegy
- PRN DuoNeb
#
- bio AVR 2018
- normally functioning per echo
# HTN
- continue carvedilol
#CAD
- s/p stent and CABG-2 vessel
# Lung ca
- s/p RUL resection
- care per onc as OP
#HLD
- continue atorvastatin
# Peripheral Neuropathy
- renally dose gabapentin
# Hypermagnesemia
- dc supplement
# GERD
- cont protonix
Full Code->DNR->Full
DVT Px: Pradaxa
Dispo- likely will need SNF PT OT c/s
Time spent coordinating care, review of plan of care with resident, personally reviewed records in EMR, med rec, consults, notes, labs, radiology, d/w nursing son cards � 55 mins
Original Note:
Today's Communication/Plan
-
Continue diuresis with IV Lasix and metolazone
Assessment / Plan
Assessment / Plan
78-year-old male with past medical history of HFrEF presented to ED after slot machine mechanic recommendation. Increasing 10 to 15 pounds over the past month. Last week cardiology increase Lasix to 80 mg twice daily without improvement. Baseline weight
160 pounds. Baseline shortness of breath with history of COPD. Patient states he accumulates fluid in his abdomen more than his lower extremities. Still feels like he has a distended abdomen.
# Acute on chronic heart failure exacerbation
Myocardial pulmonary edema on chest x-ray
Increased SOB, JVD, abdominal distension
Decreased breath sounds bilaterally, no crackles, no lower extremity swelling
Admit to telemetry
Echo EF 30-35% no significant change from prior
Moderately reduced left ventricular systolic function. Left ventricular
ejection fraction is 30-35%
Stage II diastolic dysfunction
Normally functioning bioprosthetic aortic valve
Strict I's and O's
Daily weights
Last echo 03/17/2023 LVEF 30-35%
BNP 2340
Troponin negative
84.3 ->83.5 kg
Continue metolazone 5 mg daily plus IV Lasix 80 mg IV twice daily per cardiology
Cards following
#COPD
Continue albuterol, budesonide, fluticasone home meds as needed
DuoNebs as needed
#Hypertension
Continue carvedilol
#CAD status post CABG
#Hyperlipidemia
Continue atorvastatin
#Paroxysmal a.fib
Patient with a ACID
Continue anti-coag with dabigatran
Continue for carvedilol, Pradaxa
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
Creatinine 2.4, baseline 2.3
Right atrophic kidney and bilateral nephrolithiasis noted on ab/pelvic CT could be contributing
Not interested in dialysis if Cr worsens
Dabigatran renal dosing 75mg BID
Monitor BMP
#Hypermagnesemia
resolved
#Liver 1.9cm low-density patient left upper left lobe liver
Unchanged from prior CT
Normal LFTs
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
Follow-up in outpatient
#Bilateral nephrolithiasis
Asymptomatic
f/u in outpatient
Has had prior kidney stone removal 2021
#Mild fusiform dilation of abdominal aorta
2.8 cm, stable from prior CT
#Hx peptic ulcer disease
- continue pantoprazole 40 BID
#L leg sciatica/peripheral neuropathy
- continue gabapentin renally dosed
#Hx severe aortic valve stenosis s/p bio AVR and CABGx2 05/2017 LOGAN-LAD, [facility]G-PDA. Stable on echo 03/2023
#Hx of thoracic ascending aortic aneurysm s/p aortic tube graft replacement 2017
#hx of dilated aortic root
#hx of ischemic cardiomyopathy
#hx a.fib now AICD
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
#hx thyroid cancer s/p thyroidectomy 2010
#Hx L inguinal hernia s/p repair 11/19/2021
#hx lung cancer s/p RUL lobectomy 2010
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
#hx R eye cataracts
#Hx CVA
#hx [place]/PCI 2004
DVT - Dabigatran renal dosing
Full Code
Anticipated Discharge: 24 - 48 hours
Subjective/Interval History
-
Date of Service: December 12, 2023
Objective Data
-
Labs:
Laboratory Results
12/12/23
06:43
WBC 9.9
Hgb 13.4
Hct 39.7
Plt Count 245
Sodium 139
Potassium 3.5
Chloride 96 L
Carbon Dioxide 25
BUN 43 H
Creatinine 2.4 H
Glucose 108 H
Calcium 10.6 H
Total Bilirubin 0.9
AST 16 L
ALT 17
Alkaline Phosphatase 111
Vital Signs:
Vital Signs
Temp Pulse Resp BP Pulse Ox
98.1 F 67 16 118/69 96
12/12/23 07:10 12/12/23 07:47 12/12/23 07:47 12/12/23 08:13 12/12/23 07:47
I&O
12/11/23 12/12/23 12/13/23
06:59 06:59 06:59
Intake Total 1560 / 1560 1650 / 1650
Output Total 1550 / 1550 2470 / 2470
Balance -820 / -820
Review of Systems
-
History Source: Patient
Constitutional: Reports Fatigue
Respiratory: Reports No Symptoms
Cardiac: Reports No Symptoms
Abdomen/GI: Reports Other (Abdominal distention)
Neuro: Reports No Symptoms
Physical Exam
-
General: No Apparent Distress
Respiratory: Clear to Auscultation
Cardiac: Regular Rhythm, S1/S2 and Murmur
GI: Soft and Other (Distended)
Musculoskeletal: Negative Edema, Right Lower Extrem or Edema, Left Lower Extrem
Skin: Warm
Neuro: AO x 3
Psych: Calm
[2023-12-12 10:47] LABS: Magnesium 2.1 mg/dl (1.6-2.3)
[2023-12-12] MEDS: TYLENOL 650 MG PO ×2 (10:51→20:04)
--- NOTE | 2023-12-12 16:02 | CM ---
CM reviewed chart, spoke with PT, now recommending SNF. Patient seen bedside, agreeable to SNF if insurance covers. CM discussed possibility patient may be denied SNF through insurance, patient understands and agreeable to [facility] services if needed.
Referrals sent to [facility], patient will need insurance auth. CM will continue to follow for all discharge planning needs.
Plan; SNF pending accepting facility, will need auth.
[2023-12-12] MEDS: LIPITOR 40 MG PO (22:05)
[2023-12-12] MEDS: NEURONTIN 400 MG PO (22:06)
[2023-12-13] VITALS (7 sets, daily range): BP systolic 100–139; BP diastolic 53–77; BMI 24.5
--- NOTE | 2023-12-13 05:56 | PTCARENOTE ---
Pt slept well overnight.Vital signs stable. Pt using urinal when needed. Positioning self in bed per comfort. Pt reported headache in the early evening, Tylenol administered as ordered. Pt reports chronic headaches from left eye blindness. No other
complaints offered overnight. Will monitor.
[2023-12-13 06:04] LABS: Hematocrit 38.2 % (39.0-52.0); Hemoglobin 13.2 g/dL (13.0-18.0); Mean Corp Hgb Conc. 34.6 g/dL (33.0-37.0); Mean Corpuscular Hgb 29.5 pg (27.0-31.0); Mean Corpuscular Volume 85.5 fL (80.0-94.0); Mean Platelet Volume 10.6 fL (7.4-10.4); Platelet Count 254 10^3/uL (130-400); Red Blood Cell Count 4.47 10^6/uL (4.70-6.10); Red Cell Dist. Width 13.3 % (11.5-14.5); White Blood Cell Count 9.9 10^3/uL (4.8-10.8)
[2023-12-13 06:30] LABS: Blood Urea Nitrogen 53 mg/dl (9-20); Calcium 10.7 mg/dl (8.4-10.2); Carbon Dioxide 29 mmol/L (22-30); Chloride 92 mmol/L (98-107); Estimated Creatinine Clearance 24 ml/min; Glucose 124 mg/dl (70-99); Potassium 2.8 mmol/L (3.5-5.1); Sodium 137 mmol/L (135-145); eGFR 22.53
[2023-12-13] MEDS: PROTONIX 40 MG PO ×2 (07:26→20:36)
[2023-12-13] MEDS: VITAMIN B-6 50 MG PO (07:26)
[2023-12-13] MEDS: KCL 270 MEQ IV (07:26)
[2023-12-13] MEDS: PRADAXA 75 MG PO ×2 (07:26→20:35)
[2023-12-13] MEDS: VITAMIN C 500 MG PO (07:26)
[2023-12-13] MEDS: LASIX 80 MG IV (07:27)
[2023-12-13] MEDS: ZAROXOLYN 5 MG PO (07:27)
[2023-12-13] MEDS: COREG 6.25 MG PO ×2 (07:27→20:36)
[2023-12-13] MEDS: NEURONTIN 200 MG PO (07:27)
[2023-12-13] MEDS: KCL 20 MEQ PO (07:28)
[2023-12-13] MEDS: ATROVENT NEBULES 0.5 MG INH (08:20)
[2023-12-13] MEDS: PULMICORT 0.5 MG INH (08:20)
[2023-12-13] MEDS: VENTOLIN NEBULES 2.5 MG INH (08:25)
--- NOTE | 2023-12-13 08:53 | W.PN.CD ---
Today's Communication / Plan
-
Hold additional diuresis today for RACHELE and hypokalemia
Recheck BMP at 2 PM and replete potassium as needed
Impression / Plan
-
78-year-old male with history of chronic HFrEF, paroxysmal atrial fibrillation with AICD , CAD s/p CABG, bioprosthetic valve presented to the ED with weight gain, abnormal creatinine values. Cardiology was consulted for CHF evaluation and
treatment.
Assessment and plan
RACHELE on CKD, hypokalemia
Expect that this is due to aggressive diuresis
Will hold additional diuresis today
Potassium repleted this morning. Recheck BMP at 1 PM and replete as needed.
Acute on chronic HFrEF
Weight 86 kg on admission (unknown dry weight) -now down to 82 kg
Holding additional diuresis today for RACHELE and hypokalemia: Has already received 80 IV Lasix and metolazone 5 mg
Monitor daily intake and UO
Daily weight check
Echocardiogram 12/08 shows left ventricular ejection fraction 30 to 35% (no change from previous ) with normal functioning bioprosthetic aortic valve, the peak/mean gradient of aortic valve 18/9 mmHg. PASP elevated from 41 to 46 mmHg. No AR.
Mild/moderate TR.
Continue carvedilol. Other GDMT limited by CKD.
Paroxysmal atrial fibrillation
AICD
Continue dabigatran 150 mg and carvedilol 6.25
# History of CAD s/p CABG
# Hypertension
# Hyperlipidemia
Subjective: He feels about the same today. Swelling has gone down a little bit. His weight is down to 81.8 kg from 83.5 kg yesterday. Yesterday he received 5 mg of metolazone and 80 mg Lasix IV twice daily. No events on telemetry. This morning
his creatinine is 2.8 from 2.4 yesterday, BUN is also elevated, K 2.8. He has received potassium repletion.
Physical Exam
Vital Signs/Labs
Vital Signs
Temp Pulse Resp BP Pulse Ox
97.5 F 69 16 139/73 95
12/13/23 03:00 12/13/23 08:23 12/13/23 08:23 12/13/23 03:00 12/13/23 08:23
12/12/23 12/13/23 12/14/23
06:59 06:59 05:59
Actual Weight 83.518 kg 81.873 kg
12/13/23 05:00
Magnesium 2.1 mg/dl (1.6-2.3) 12/12/23 06:43
TSH 0.89 uIU/ml (0.47-4.68) 12/09/23 06:45
12/08/23
16:48
Ple-O-Veqqislxral Pept 2340
Physical Exam
Constitutional: No acute distress and Comfortable
Cardiovascular: Rhythm & rate is regular, Pedal edema is absent, S1S2 is normal and Murmur/rub/gallop absent
Respiratory: Respiratory effort normal and Lungs clear to auscul.
GI: Soft and Distention present
Data Reviewed
-
Date of Service: December 13, 2023
Medical Decision Making: Reviewed Test Results, Independent Historian Assessment, Test Interpretation and Review of Case with other Provider
EKG: Tracing Personally Visualized and interpreted
Echo: Report Reviewed by me
Labs: Labs Reviewed by me and Labs Ordered by me
[2023-12-13] MEDS: TYLENOL 650 MG PO ×2 (08:57→17:03)
--- NOTE | 2023-12-13 09:15 | W.PN.HOSP.TC ---
Today's Communication/Plan
-
Hold diuretics due to RACHELE. Repeat BMP in afternoon
Repeat replete potassium as needed
Assessment / Plan
Assessment / Plan
78-year-old male with past medical history of HFrEF presented to ED after anti tank missileman recommendation. Increasing 10 to 15 pounds over the past month. Last week cardiology increase Lasix to 80 mg twice daily without improvement. Baseline weight
160 pounds. Baseline shortness of breath with history of COPD. Patient states he accumulates fluid in his abdomen more than his lower extremities. Still feels like he has a distended abdomen.
# Acute on chronic heart failure exacerbation
Myocardial pulmonary edema on chest x-ray
Increased SOB, JVD, abdominal distension
Decreased breath sounds bilaterally, no crackles, no lower extremity swelling
Admit to telemetry
Echo EF 30-35% no significant change from prior
Moderately reduced left ventricular systolic function. Left ventricular
ejection fraction is 30-35%
Stage II diastolic dysfunction
Normally functioning bioprosthetic aortic valve
Strict I's and O's
Daily weights
Last echo 03/17/2023 LVEF 30-35%
BNP 2340
Troponin negative
83.5 ->81.8
Cr increase to 2.8 -- hold am diuretics per cards and repeat bmp at 2pm
Cards following
#Hypokalemia
2.8
Replace as needed
#COPD
Continue albuterol, budesonide, fluticasone home meds as needed
DuoNebs as needed
#Hypertension
Continue carvedilol
#CAD status post CABG
#Hyperlipidemia
Continue atorvastatin
#Paroxysmal a.fib
Patient with a ACID
Continue anti-coag with dabigatran
Continue for carvedilol, Pradaxa
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
Creatinine 2.4->2.8, baseline 2.3
Hold diuretics this morning. Repeat bmp in pm
Right atrophic kidney and bilateral nephrolithiasis noted on ab/pelvic CT could be contributing
Not interested in dialysis if Cr worsens
Dabigatran renal dosing 75mg BID
Monitor BMP
#Hypermagnesemia
resolved
#Liver 1.9cm low-density patient left upper left lobe liver
Unchanged from prior CT
Normal LFTs
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
Follow-up in outpatient
#Bilateral nephrolithiasis
Asymptomatic
f/u in outpatient
Has had prior kidney stone removal 2021
#Mild fusiform dilation of abdominal aorta
2.8 cm, stable from prior CT
#Hx peptic ulcer disease
- continue pantoprazole 40 BID
#L leg sciatica/peripheral neuropathy
- continue gabapentin renally dosed
#Hx severe aortic valve stenosis s/p bio AVR and CABGx2 05/2017 LOGAN-LAD, [facility]G-PDA. Stable on echo 03/2023
#Hx of thoracic ascending aortic aneurysm s/p aortic tube graft replacement 2017
#hx of dilated aortic root
#hx of ischemic cardiomyopathy
#hx a.fib now AICD
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
#hx thyroid cancer s/p thyroidectomy 2010
#Hx L inguinal hernia s/p repair 11/19/2021
#hx lung cancer s/p RUL lobectomy 2010
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
#hx R eye cataracts
#Hx CVA
#hx [place]/PCI 2004
DVT - Dabigatran renal dosing
Full Code
Anticipated Discharge: 24 - 48 hours
Subjective/Interval History
-
Date of Service: December 13, 2023
Objective Data
-
Labs:
Laboratory Results
12/13/23 12/13/23
05:00 13:00
WBC 9.9
Hgb 13.2
Hct 38.2 L
Plt Count 254
Sodium 137 Pending
Potassium 2.8 L Pending
Chloride 92 L Pending
Carbon Dioxide 29 Pending
BUN 53 H Pending
Creatinine 2.8 H Pending
Glucose 124 H Pending
Calcium 10.7 H Pending
Vital Signs:
Vital Signs
Temp Pulse Resp BP Pulse Ox
97.5 F 69 16 139/73 95
12/13/23 03:00 12/13/23 08:23 12/13/23 08:23 12/13/23 03:00 12/13/23 08:23
I&O
12/12/23 12/13/23 12/14/23
06:59 06:59 05:59
Intake Total 1650 / 1650 960 / 960
Output Total 2470 / 2470 2039 / 0
Balance -820 / -820 -1080 / -1080
Review of Systems
-
History Source: Patient
Constitutional: Reports Fatigue
EENT: Reports No Symptoms Reported
Respiratory: Reports No Symptoms
Cardiac: Reports No Symptoms
Abdomen/GI: Reports No Symptoms
Neuro: Reports No Symptoms
Physical Exam
-
General: No Apparent Distress
Respiratory: Clear to Auscultation
Cardiac: Regular Rhythm and S1/S2
GI: Soft, Nontender and Nondistended (Decreased distenstion from previous)
Musculoskeletal: No Edema
Skin: Warm
Neuro: AO x 3
Psych: Calm
[2023-12-13 10:34] LABS: Magnesium 2.4 mg/dl (1.6-2.3)
[2023-12-13] MEDS: KCL ELIXIR 40 MEQ PO (11:07)
--- NOTE | 2023-12-13 12:18 | CM ---
Spoke with patient's ; explained that SNF recommended; reported that hey prefer Home Health services instead of going to a SNF
Agency options offered; preference is [facility] for home PT, [facility]; referral sent via [facility]
Plan: discharge to home when medically stable with [facility] home health service
[2023-12-13 12:27] LABS: Vitamin B12 395 pg/ml (239-931)
[2023-12-13 13:25] LABS: Blood Urea Nitrogen 56 mg/dl (9-20); Calcium 10.5 mg/dl (8.4-10.2); Carbon Dioxide 27 mmol/L (22-30); Chloride 98 mmol/L (98-107); Estimated Creatinine Clearance 26 ml/min; Glucose 106 mg/dl (70-99); Iron 99 ug/dl (49-181); Potassium 4.1 mmol/L (3.5-5.1); Sodium 140 mmol/L (135-145); eGFR 24.63
[2023-12-13 13:35] LABS: Percent Saturation 24 % (20-50); Total Iron Binding Capacity 398 ug/dl (261-462)
[2023-12-13 14:18] LABS: Ferritin 17.5 ng/ml (17.9-464.0)
--- NOTE | 2023-12-13 21:00 | PTCARENOTE ---
Pt reports 9/10 pain throughout his head and in his lower ribs bilaterally. PRN Tylenol provided at 1703 was unsuccessful in relieving pain per pt. No other PRN pain medications ordered. House [employer]STRUCTION [employer]UM[employer] Juliana Davila notified, orders placed for 1x stat
Tylenol 1000mg and lidocaine patch to begin tomorrow morning. Will reassess pain level after Tylenol administration.
[2023-12-13] MEDS: NEURONTIN 400 MG PO (21:38)
[2023-12-13] MEDS: LIPITOR 40 MG PO (21:38)
[2023-12-13] MEDS: TYLENOL 1000 MG PO (21:41)
[2023-12-14 03:13] VITALS: BP 120/74
[2023-12-14 06:00] VITALS: BMI 24.7
[2023-12-14 06:38] LABS: Blood Urea Nitrogen 59 mg/dl (9-20); Calcium 10.4 mg/dl (8.4-10.2); Carbon Dioxide 24 mmol/L (22-30); Chloride 96 mmol/L (98-107); Estimated Creatinine Clearance 26 ml/min; Glucose 119 mg/dl (70-99); Potassium 3.2 mmol/L (3.5-5.1); Sodium 136 mmol/L (135-145); eGFR 24.63
[2023-12-14 06:44] LABS: Intact PTH 271.8 pg/ml (13.6-85.8)
[2023-12-14] MEDS: ATROVENT NEBULES 0.5 MG INH (07:35)
[2023-12-14] MEDS: VENTOLIN NEBULES 2.5 MG INH (07:36)
[2023-12-14] MEDS: PULMICORT 0.5 MG INH (07:36)
[2023-12-14 07:44] VITALS: BP 120/73
[2023-12-14] MEDS: PROTONIX 40 MG PO ×2 (08:55→20:54)
[2023-12-14] MEDS: TYLENOL 650 MG PO ×3 (08:55→22:59)
[2023-12-14] MEDS: PRADAXA 75 MG PO ×2 (08:55→20:53)
[2023-12-14] MEDS: NEURONTIN 200 MG PO (08:55)
[2023-12-14] MEDS: COREG 6.25 MG PO ×2 (08:55→20:53)
[2023-12-14] MEDS: KCL ELIXIR 40 MEQ PO (08:56)
[2023-12-14] MEDS: KCL 20 MEQ PO (08:56)
[2023-12-14] MEDS: LIDOCAINE 4% PATCH 1 PATCH TOPICAL (08:57)
[2023-12-14] MEDS: VITAMIN B-6 50 MG PO (08:57)
[2023-12-14] MEDS: VITAMIN C 500 MG PO (08:57)
--- NOTE | 2023-12-14 10:30 | W.PN.HOSP.TC ---
Today's Communication/Plan
-
Hold diuretics today as Cr still 2.6
Re-evaluate in am
Assessment / Plan
Assessment / Plan
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 Increasing 10 to 15 pounds over the past month. Last week cardiology increase Lasix to 80 mg twice daily without improvement. Baseline weight
160 pounds. Baseline shortness of breath with history of COPD. Patient states he accumulates fluid in his abdomen more than his lower extremities. Still feels like he has a distended abdomen.
# Acute on chronic heart failure exacerbation
Myocardial pulmonary edema on chest x-ray
Increased SOB, JVD, abdominal distension
Decreased breath sounds bilaterally, no crackles, no lower extremity swelling
Admit to telemetry
Echo EF 30-35% no significant change from prior
Moderately reduced left ventricular systolic function. Left ventricular
ejection fraction is 30-35%
Stage II diastolic dysfunction
Normally functioning bioprosthetic aortic valve
Strict I's and O's
Daily weights
Last echo 03/17/2023 LVEF 30-35%
BNP 2340
Troponin negative
81.8 ->82.6 kg
Cr increase to 2.8 -> 2.6 Continue to hold diuretics per cards
Cards following
#Hypokalemia
2.8
Replace as needed
#Hypercalcemia
Continuously slightly elevated
PTH elevated
Likely primary hyperparathyroidism
vit D pending
f/u in outpatient
#COPD
Continue albuterol, budesonide, fluticasone home meds as needed
DuoNebs as needed
#Hypertension
Continue carvedilol
#CAD status post CABG
#Hyperlipidemia
Continue atorvastatin
#Paroxysmal a.fib
Patient with a ACID
Continue anti-coag with dabigatran
Continue for carvedilol, Pradaxa
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
Creatinine 2.4->2.8->2.6, baseline 2.3
Hold diuretics. Repeat bmp in am
Right atrophic kidney and bilateral nephrolithiasis noted on ab/pelvic CT could be contributing
Not interested in dialysis if Cr worsens
Dabigatran renal dosing 75mg BID
Monitor BMP
#Hypermagnesemia
resolved
#Liver 1.9cm low-density patient left upper left lobe liver
Unchanged from prior CT
Normal LFTs
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
Follow-up in outpatient
#Bilateral nephrolithiasis
Asymptomatic
f/u in outpatient
Has had prior kidney stone removal 2021
#Mild fusiform dilation of abdominal aorta
2.8 cm, stable from prior CT
#Hx peptic ulcer disease
- continue pantoprazole 40 BID
#L leg sciatica/peripheral neuropathy
- continue gabapentin renally dosed
#Hx severe aortic valve stenosis s/p bio AVR and CABGx2 05/2017 LOGAN-LAD, VG-PDA. Stable on echo 03/2023
#Hx of thoracic ascending aortic aneurysm s/p aortic tube graft replacement 2017
#hx of dilated aortic root
#hx of ischemic cardiomyopathy
#hx a.fib now AICD
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
#hx thyroid cancer s/p thyroidectomy 2010
#Hx L inguinal hernia s/p repair 11/19/2021
#hx lung cancer s/p RUL lobectomy 2010
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
#hx R eye cataracts
#Hx CVA
#hx [place]/PCI 2004
DVT - Dabigatran renal dosing
Full Code
Anticipated Discharge: 24 - 48 hours
Subjective/Interval History
-
Date of Service: December 14, 2023
Objective Data
-
Labs:
Laboratory Results
12/14/23 12/14/23
05:26 06:00
Sodium 136 Cancelled
Potassium 3.2 L Cancelled
Chloride 96 L Cancelled
Carbon Dioxide 24 Cancelled
BUN 59 H Cancelled
Creatinine 2.6 H Cancelled
Glucose 119 H Cancelled
Calcium 10.4 H Cancelled
Vital Signs:
Vital Signs
Temp Pulse Resp BP Pulse Ox
98.2 F 71 18 120/73 97
12/14/23 07:44 12/14/23 07:44 12/14/23 07:44 12/14/23 07:44 12/14/23 07:44
I&O
12/13/23 12/14/23 12/15/23
07:59 06:59 06:59
Intake Total
Output Total
Balance
Review of Systems
-
History Source: Patient
Constitutional: Reports Fatigue
Respiratory: Reports No Symptoms
Cardiac: Reports No Symptoms
Abdomen/GI: Reports Other (Abdominal distension)
Neuro: Reports No Symptoms
Physical Exam
-
General: No Apparent Distress and Comfortable
Respiratory: Clear to Auscultation
Cardiac: Regular Rhythm and S1/S2
GI: Soft, Nontender and Distended
Musculoskeletal: No Edema
Skin: Warm
Neuro: AO x 3
Psych: Calm
[2023-12-14 11:33] VITALS: BP 120/67
--- NOTE | 2023-12-14 12:13 | W.PN.CD ---
Today's Communication / Plan
-
Hold diuresis for RACHELE
Continue carvedilol and dabigatran for A-fib
Impression / Plan
-
78-year-old male with history of chronic HFrEF, paroxysmal atrial fibrillation with AICD , CAD s/p CABG, bioprosthetic valve presented to the ED with weight gain, abnormal creatinine values. Cardiology was consulted for CHF evaluation and
treatment.
Assessment and plan
RACHELE on CKD, improving
Expect that this is due to aggressive diuresis
Will hold diuresis today. Hopefully can resume tomorrow if creatinine improves (baseline 2.3-2.4).
Potassium repletion as needed.
Acute on chronic HFrEF
Weight 86 kg on admission (unknown dry weight) -now down to 82 kg
Holding additional diuresis today for RACHELE. Hopefully can resume tomorrow.
Monitor daily intake and UO
Daily weight check
Echocardiogram 12/08 shows left ventricular ejection fraction 30 to 35% (no change from previous ) with normal functioning bioprosthetic aortic valve, the peak/mean gradient of aortic valve 18/9 mmHg. PASP elevated from 41 to 46 mmHg. No AR.
Mild/moderate TR.
Continue carvedilol. Other GDMT limited by CKD.
Paroxysmal atrial fibrillation
In sinus rhythm here
Continue dabigatran 150 mg and carvedilol 6.25
# History of CAD s/p CABG
# Hypertension
# Hyperlipidemia
Subjective: Feels slightly more distended today. No events on telemetry. Potassium is 3.2. Creatinine is 2.6 from 2.8 yesterday (baseline 2.3-2.4). Lasix was held this morning. Weight up 1 kg overnight.
Physical Exam
Vital Signs/Labs
Vital Signs
Temp Pulse Resp BP Pulse Ox
97.6 F 64 17 120/67 95
12/14/23 11:33 12/14/23 11:33 12/14/23 11:33 12/14/23 11:33 12/14/23 11:33
12/13/23 12/14/23 12/15/23
07:59 06:59 06:59
Actual Weight
12/13/23 05:00
12/14/23 06:00
Magnesium 2.4 mg/dl (1.6-2.3) H 12/13/23 05:00
TSH 0.89 uIU/ml (0.47-4.68) 12/09/23 06:45
12/08/23
16:48
Dbb-L-Anxtstonuih Pept 2340
Physical Exam
Constitutional: No acute distress and Comfortable
Cardiovascular: Rhythm & rate is regular, Pedal edema is absent, JVD pressure is normal, S1S2 is normal and Murmur/rub/gallop absent
Respiratory: Respiratory effort normal and Lungs clear to auscul.
GI: Soft and Distention present
Data Reviewed
-
Date of Service: December 14, 2023
Medical Decision Making: Reviewed Test Results, Independent Historian Assessment, Test Interpretation and Review of Case with other Provider
EKG: Tracing Personally Visualized and interpreted
Echo: Report Reviewed by me
Labs: Labs Reviewed by me
[2023-12-14 15:51] VITALS: BP 120/61
[2023-12-14 19:49] VITALS: BP 133/88
[2023-12-14] MEDS: LIPITOR 40 MG PO (22:58)
[2023-12-14] MEDS: NEURONTIN 400 MG PO (22:58)
[2023-12-14 23:30] VITALS: BP 131/72
[2023-12-15] VITALS (8 sets, daily range): BP systolic 93–144; BP diastolic 53–74; PULSE 60–66; O2SAT 94–96; BMI 24.7
[2023-12-15] MEDS: PULMICORT 0.5 MG INH (08:04)
[2023-12-15] MEDS: VENTOLIN NEBULES 2.5 MG INH (08:04)
[2023-12-15] MEDS: ATROVENT NEBULES 0.5 MG INH (08:04)
[2023-12-15] MEDS: PRADAXA 75 MG PO ×2 (08:25→20:40)
[2023-12-15] MEDS: KCL 20 MEQ PO (08:25)
[2023-12-15] MEDS: PROTONIX 40 MG PO ×2 (08:25→20:41)
[2023-12-15] MEDS: NEURONTIN 200 MG PO (08:26)
[2023-12-15] MEDS: LIDOCAINE 4% PATCH 1 PATCH TOPICAL (08:26)
[2023-12-15] MEDS: VITAMIN C 500 MG PO (08:26)
[2023-12-15] MEDS: COREG 6.25 MG PO ×2 (08:26→20:40)
[2023-12-15] MEDS: VITAMIN B-6 50 MG PO (08:26)
[2023-12-15] MEDS: TYLENOL 650 MG PO (08:36)
[2023-12-15 09:03] LABS: Blood Urea Nitrogen 62 mg/dl (9-20); Calcium 10.6 mg/dl (8.4-10.2); Carbon Dioxide 27 mmol/L (22-30); Chloride 96 mmol/L (98-107); Estimated Creatinine Clearance 28 ml/min; Glucose 110 mg/dl (70-99); Magnesium 2.5 mg/dl (1.6-2.3); Potassium 3.1 mmol/L (3.5-5.1); Sodium 137 mmol/L (135-145); eGFR 27.11
--- NOTE | 2023-12-15 10:01 | W.PN.CD ---
Today's Communication / Plan
-
Potassium repletion
Diurese with p.o. Bumex 1 mg daily
Impression / Plan
-
78-year-old male with history of chronic HFrEF, paroxysmal atrial fibrillation with AICD , CAD s/p CABG, bioprosthetic valve presented to the ED with weight gain, abnormal creatinine values. Cardiology was consulted for CHF evaluation and
treatment.
Assessment and plan
Hypokalemia
Please replete potassium prior to further diuresis
Goal K >4
Acute on chronic HFrEF
Weight 86 kg on admission (unknown dry weight) -now down to 82 kg (this is likely his new dry weight)
Resume diuresis with p.o. Bumex 1 mg daily (after potassium repletion). May ultimately need twice daily dosing but can decide tomorrow based on weight
Monitor daily intake and UO
Daily weight check
Echocardiogram 12/08 shows left ventricular ejection fraction 30 to 35% (no change from previous ) with normal functioning bioprosthetic aortic valve, the peak/mean gradient of aortic valve 18/9 mmHg. PASP elevated from 41 to 46 mmHg. No AR.
Mild/moderate TR.
Continue carvedilol. Other GDMT limited by CKD.
RACHELE on CKD, improving
Expect that this was due to aggressive diuresis
Creatinine now back to baseline (2.3-2.4)
Trend with resuming diuresis
Paroxysmal atrial fibrillation
In sinus rhythm here
Continue dabigatran 150 mg and carvedilol 6.25
# History of CAD s/p CABG
# Hypertension
# Hyperlipidemia
Subjective: Feels stable today. No events on telemetry. Diuretics were held yesterday for creatinine bump. Creatinine this morning is down to 2.4 from 2.6 (baseline 2.3-2.4). K 3.1. Weight this morning is stable.
Physical Exam
Vital Signs/Labs
Vital Signs
Temp Pulse Resp BP Pulse Ox
97.7 F 65 16 144/71 93
12/15/23 07:30 12/15/23 08:11 12/15/23 08:11 12/15/23 07:30 12/15/23 08:11
12/14/23 12/15/23 12/16/23
06:59 06:59 06:59
Actual Weight 82.554 kg
12/13/23 05:00
12/15/23 06:51
Magnesium 2.5 mg/dl (1.6-2.3) H 12/15/23 06:51
TSH 0.89 uIU/ml (0.47-4.68) 12/09/23 06:45
12/08/23
16:48
Ywj-C-Etbxjnwmxjn Pept 2340
Physical Exam
Constitutional: No acute distress and Comfortable
Cardiovascular: Rhythm & rate is regular, Pedal edema is absent, S1S2 is normal and Murmur/rub/gallop absent
Respiratory: Respiratory effort normal and Lungs clear to auscul.
Data Reviewed
-
Date of Service: December 15, 2023
Medical Decision Making: Reviewed Test Results, Independent Historian Assessment, Test Interpretation and Review of Case with other Provider
EKG: Tracing Personally Visualized and interpreted
Echo: Report Reviewed by me
Labs: Labs Reviewed by me
[2023-12-15] MEDS: KCL 40 MEQ PO ×2 (11:19→11:38)
--- NOTE | 2023-12-15 12:21 | CM ---
CM reviewed chart, per Resident, patient not stable for discharge. Patient seen bedside with , patient and both agreeable to home with [facility], do not want SNF. CM will continue to follow for all discharge planning needs.
Plan; home with [facility] when stable.
--- NOTE | 2023-12-15 12:36 | W.PN.HOSP.TC ---
Addendum entered and electronically signed by Onesimo Trinh MD 12/15/23 15:17:
Imaging
2d echo
CONCLUSIONS Moderately reduced left ventricular systolic function. Left ventricular ejection fraction is 30-35% by Hanley's method of disc.
Asymmetric septal hypertrophy (IVS 1.5 cm, LVPW 1.1 cm). Stage II diastolic dysfunction suggestive of abnormal relaxation and increased filling pressures.
Normally functioning bioprosthetic aortic valve with peak/mean gradients across the aortic valve 18/9 mmHg, respectively. No aortic regurgitation is seen. Mild/moderate tricuspid regurgitation. Moderately elevated PASP. Estimated pulmonary artery
pressure of 46 mmHg assuming a right atrial pressure of 3 mmHg.
CTAP
IMPRESSION:
Emphysematous changes within the visualized lower lungs, including bullae.
Moderate atrophy of the right kidney which has developed since CT examination of May 2022.
Bilateral nephrolithiasis. No evidence for ureteral calculus.
Moderate to severe atherosclerotic disease with calcification. Mild fusiform dilation of the abdominal aorta, maximum AP dimension of 2.8 cm, stable from prior CT.
CXR
IMPRESSION:
Previous partial right lung resection, probably right upper lobectomy.
Changes of emphysema, better seen on prior CT examination.
Physical Exam
NAD, resting comfortably in bed
Scleral anicteric
Moist mucous membranes
No JVD
CTA bilateral
Normal S1-S2 no murmurs
Soft nontender nondistended bowel sounds active
No peripheral pitting edema
Moves extremities spontaneously
AAOx3
Assessment and Plan
Acute on chronic HFrEF exacerbation, EF 30 to 35%, NYHA class III-IV
-Diuretics have been held due to bump in creatinine.
-Cardiology recommends to resume 1 mg Bumex which has been started
-Limited on GDMT due to renal function
-Continue beta-jade
RACHELE on CKD
-Secondary to overdiuresis
-Creatinine at baseline
-Monitor urinary
-Avoid nephrotoxins/hypotension
Hypokalemia
-Replete
Hypercalcemia
-Mild
-PTH elevated, low vitamin D
-Asymptomatic
-Outpatient endocrinology follow-up
Paroxysmal atrial fibrillation
-Sinus rhythm continue beta-ajde and dabigatran
PUD
-Continue PPI
Original Note:
Today's Communication/Plan
-
Start Bumex 1 mg per cardiology
Replete potassium
Assessment / Plan
Assessment / Plan
78-year-old male with past medical history of HFrEF presented to ED after law librarian recommendation. Increasing 10 to 15 pounds over the past month. Last week cardiology increase Lasix to 80 mg twice daily without improvement. Baseline weight
160 pounds. Baseline shortness of breath with history of COPD. Patient states he accumulates fluid in his abdomen more than his lower extremities. Still feels like he has a distended abdomen.
# Acute on chronic heart failure exacerbation
Myocardial pulmonary edema on chest x-ray
Increased SOB, JVD, abdominal distension
Decreased breath sounds bilaterally, no crackles, no lower extremity swelling
Admit to telemetry
Echo EF 30-35% no significant change from prior
Moderately reduced left ventricular systolic function. Left ventricular
ejection fraction is 30-35%
Stage II diastolic dysfunction
Normally functioning bioprosthetic aortic valve
Strict I's and O's
Daily weights
Last echo 03/17/2023 LVEF 30-35%
BNP 2340
Troponin negative
82.6 ->82.5
Cr decrease to 2.6 -> 2.4 at baseline -- okay to restart diuretics
1mg Bumex p.o. daily
Cards following
#Hypokalemia
3.1
Replace as needed
#Hypercalcemia
Continuously slightly elevated
PTH elevated
Low vit D
Likely primary hyperparathyroidism
History of nephrolithiasis
calcitonin, PTHrP and phosphorus pending
Prior partial thyroidectomy
#COPD
Continue albuterol, budesonide, fluticasone home meds as needed
DuoNebs as needed
#Hypertension
Continue carvedilol
#CAD status post CABG
#Hyperlipidemia
Continue atorvastatin
#Paroxysmal a.fib
Patient with a ACID
Continue anti-coag with dabigatran
Continue for carvedilol, Pradaxa
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
Creatinine 2.4->2.8->2.4, baseline 2.3
Okay to restart diuretics per cardiology 1 mg Bumex
Right atrophic kidney and bilateral nephrolithiasis noted on ab/pelvic CT could be contributing
Not interested in dialysis if Cr worsens
Dabigatran renal dosing 75mg BID
Monitor BMP
#Hypermagnesemia
resolved
#Liver 1.9cm low-density patient left upper left lobe liver
Unchanged from prior CT
Normal LFTs
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
Follow-up in outpatient
#Bilateral nephrolithiasis
Asymptomatic
f/u in outpatient
Has had prior kidney stone removal 2021
#Mild fusiform dilation of abdominal aorta
2.8 cm, stable from prior CT
#Hx peptic ulcer disease
- continue pantoprazole 40 BID
#L leg sciatica/peripheral neuropathy
-Restart gabapentin home dose as creatinine is not baseline
#Hx severe aortic valve stenosis s/p bio AVR and CABGx2 05/2017 LOGAN-LAD, VG-PDA. Stable on echo 03/2023
#Hx of thoracic ascending aortic aneurysm s/p aortic tube graft replacement 2017
#hx of dilated aortic root
#hx of ischemic cardiomyopathy
#hx a.fib now AICD
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
#hx thyroid cancer s/p thyroidectomy 2010
#Hx L inguinal hernia s/p repair 11/19/2021
#hx lung cancer s/p RUL lobectomy 2010
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
#hx R eye cataracts
#Hx CVA
#hx NH/PCI 2004
DVT - Dabigatran renal dosing
Full Code
Anticipated Discharge: 24 - 48 hours
Subjective/Interval History
-
Date of Service: December 15, 2023
Objective Data
-
Labs:
Laboratory Results
12/15/23
06:51
Sodium 137
Potassium 3.1 L
Chloride 96 L
Carbon Dioxide 27
BUN 62 H
Creatinine 2.4 H
Glucose 110 H
Calcium 10.6 H
Vital Signs:
Vital Signs
Temp Pulse Resp BP Pulse Ox
97.5 F 68 20 124/58 95
12/15/23 11:30 12/15/23 11:30 12/15/23 11:30 12/15/23 11:30 12/15/23 11:30
I&O
12/14/23 12/15/23 12/16/23
06:59 06:59 06:59
Intake Total 1080 / 1080
Output Total 1200 / 1200
Balance -120 / -120
Review of Systems
-
History Source: Patient
Constitutional: Reports Fatigue
Respiratory: Reports No Symptoms
Cardiac: Reports No Symptoms
Abdomen/GI: Reports No Symptoms
Neuro: Reports No Symptoms
Physical Exam
-
General: Comfortable
Respiratory: Clear to Auscultation
Cardiac: Regular Rhythm and S1/S2
GI: Soft, Nontender and Distended
Skin: Warm
Neuro: AO x 3
Psych: Calm
[2023-12-15 12:40] LABS: Phosphorus 3.6 mg/dl (2.5-4.5)
[2023-12-15 13:00] LABS: Ionized Calcium 1.35 mMOL/L (1.15-1.33)
[2023-12-15 14:00] LABS: Phosphorus 2.9 mg/dl (2.5-4.5)
[2023-12-15] MEDS: BUMEX 1 MG PO (14:19)
--- NOTE | 2023-12-15 14:59 | W.HF.CON ---
Heart Failure
- LV Function
Left ventricular function study result: LV Ejection fraction </= 35%
Ejection Fraction Percentage: 30-35
- ARNI
Patient already on ARNI: No
Heart Failure ARNI Contraindication: Acute Renal Failure, Hypotension
- ACEI/ARB
Patient already on ACEI/ARB: No
Heart Failure ACEI/ARB Contraindication: Acute Renal Failure, Hypotension
- Beta Thanh
Patient already on Evidence Based Beta Thanh: Yes
- Mineralocorticord Receptor Antagonist
Patient already on MRA: No
Heart Failure MRA Contraindication: Acute Renal Insufficiency, Hypotension
- SGLT-2 Inhibitor
Patient already on SGLT-2 Inhibitor: No
Heart Failure SGLT-2 Inhibitor Contraindication: eGFR < 25
- Afib Anticoagulation
Patient already on Anticoagulation for Afib: Yes
- NYHA CHF Classification
NYHA CHF Classification Level: Class III - Symptoms w/ min exertion, interferes w/ nml daily activity
- ACC/AHA Stage
ACC/AHA Stage: Stage C: Symptomatic Heart Failure
[2023-12-15] MEDS: NEURONTIN 600 MG PO (21:09)
[2023-12-15] MEDS: LIPITOR 40 MG PO (21:09)
[2023-12-16] MEDS: TYLENOL 650 MG PO ×2 (00:56→10:11)
[2023-12-16 03:30] VITALS: BP 122/63
[2023-12-16 05:49] VITALS: BMI 24.6
[2023-12-16 07:00] VITALS: BP 137/73
[2023-12-16] MEDS: ATROVENT NEBULES 0.5 MG INH (07:52)
[2023-12-16] MEDS: PULMICORT 0.5 MG INH (07:53)
[2023-12-16] MEDS: VENTOLIN NEBULES 2.5 MG INH (07:53)
[2023-12-16] MEDS: PROTONIX 40 MG PO (08:15)
[2023-12-16] MEDS: NEURONTIN 300 MG PO (08:15)
[2023-12-16] MEDS: KCL 40 MEQ PO (08:15)
[2023-12-16] MEDS: VITAMIN D3 (cholecalciferol) 125 MCG PO (08:16)
[2023-12-16] MEDS: LIDOCAINE 4% PATCH 1 PATCH TOPICAL (08:16)
[2023-12-16] MEDS: COREG 6.25 MG PO (08:16)
[2023-12-16] MEDS: PRADAXA 75 MG PO (08:16)
[2023-12-16] MEDS: VITAMIN B-6 50 MG PO (08:16)
[2023-12-16] MEDS: BUMEX 1 MG PO (08:16)
[2023-12-16] MEDS: VITAMIN C 500 MG PO (08:16)
[2023-12-16 08:35] LABS: Hematocrit 38.7 % (39.0-52.0); Hemoglobin 13.2 g/dL (13.0-18.0); Mean Corp Hgb Conc. 34.1 g/dL (33.0-37.0); Mean Corpuscular Hgb 30.4 pg (27.0-31.0); Mean Corpuscular Volume 89.2 fL (80.0-94.0); Mean Platelet Volume 10.7 fL (7.4-10.4); Platelet Count 237 10^3/uL (130-400); Red Blood Cell Count 4.34 10^6/uL (4.70-6.10); Red Cell Dist. Width 13.4 % (11.5-14.5); White Blood Cell Count 9.2 10^3/uL (4.8-10.8)
[2023-12-16 09:07] LABS: ALT (SGPT) 14 U/L (0-50); AST (SGOT) 14 U/L (17-59); Alkaline Phosphatase 116 U/L (38-126); Blood Urea Nitrogen 64 mg/dl (9-20); Calcium 10.4 mg/dl (8.4-10.2); Carbon Dioxide 25 mmol/L (22-30); Chloride 100 mmol/L (98-107); Estimated Creatinine Clearance 27 ml/min; Glucose 96 mg/dl (70-99); Magnesium 2.5 mg/dl (1.6-2.3); Potassium 3.4 mmol/L (3.5-5.1); Sodium 141 mmol/L (135-145); Total Bilirubin 0.7 mg/dl (0.2-1.3); eGFR 25.82
--- NOTE | 2023-12-16 09:10 | W.PN.HOSP.TC ---
Addendum entered and electronically signed by Onesimo Trinh MD 12/16/23 14:32:
Imaging
2d echo
CONCLUSIONS Moderately reduced left ventricular systolic function. Left ventricular ejection fraction is 30-35% by Hanley's method of disc.
Asymmetric septal hypertrophy (IVS 1.5 cm, LVPW 1.1 cm). Stage II diastolic dysfunction suggestive of abnormal relaxation and increased filling pressures.
Normally functioning bioprosthetic aortic valve with peak/mean gradients across the aortic valve 18/9 mmHg, respectively. No aortic regurgitation is seen. Mild/moderate tricuspid regurgitation. Moderately elevated PASP. Estimated pulmonary artery
pressure of 46 mmHg assuming a right atrial pressure of 3 mmHg.
CTAP
IMPRESSION:
Emphysematous changes within the visualized lower lungs, including bullae.
Moderate atrophy of the right kidney which has developed since CT examination of May 2022.
Bilateral nephrolithiasis. No evidence for ureteral calculus.
Moderate to severe atherosclerotic disease with calcification. Mild fusiform dilation of the abdominal aorta, maximum AP dimension of 2.8 cm, stable from prior CT.
CXR
IMPRESSION:
Previous partial right lung resection, probably right upper lobectomy.
Changes of emphysema, better seen on prior CT examination.
Physical Exam
NAD, resting comfortably in bed
Scleral anicteric
Moist mucous membranes
No JVD
CTA bilateral
Normal S1-S2 no murmurs
Soft nontender nondistended bowel sounds active
No peripheral pitting edema
Moves extremities spontaneously
AAOx3
Assessment and Plan
Acute on chronic HFrEF exacerbation, EF 30 to 35%, NYHA class III-IV
-Diuretics have been held due to bump in creatinine.
-Cardiology recommends to resume 1 mg Bumex PO which has been started
-Limited on GDMT due to renal function
-Continue beta-jade
RACHELE on CKD IV
-Secondary to overdiuresis
-Creatinine at baseline
-Monitor urinary
-Avoid nephrotoxins/hypotension
Hypokalemia
-Replete
Hypercalcemia
-Mild
-PTH elevated, low vitamin D
-Asymptomatic
-Outpatient endocrinology follow-up
Paroxysmal atrial fibrillation
-Sinus rhythm continue beta-jade and dabigatran
PUD
-Continue PPI
Original Note:
Today's Communication/Plan
-
Discharge today on 1 mg Bumex daily with instructions to contact cardiology if changes and daily weights
Repeat BMP and magnesium in 1 week
Assessment / Plan
Assessment / Plan
78-year-old male with past medical history of HFrEF presented to ED after manager msw recommendation. Increasing 10 to 15 pounds over the past month. Last week cardiology increase Lasix to 80 mg twice daily without improvement. Baseline weight
160 pounds. Baseline shortness of breath with history of COPD. Patient states he accumulates fluid in his abdomen more than his lower extremities. Still feels like he has a distended abdomen.
# Acute on chronic heart failure exacerbation
Myocardial pulmonary edema on chest x-ray
Increased SOB, JVD, abdominal distension
Decreased breath sounds bilaterally, no crackles, no lower extremity swelling
Admit to telemetry
Echo EF 30-35% no significant change from prior
Moderately reduced left ventricular systolic function. Left ventricular
ejection fraction is 30-35%
Stage II diastolic dysfunction
Normally functioning bioprosthetic aortic valve
Strict I's and O's
Daily weights
Last echo 03/17/2023 LVEF 30-35%
BNP 2340
Troponin negative
82.5 -> 82.2
Cr 2.4 -> 2.5.
Okay to discharge on 1mg Bumex p.o. daily patient for daily weights and to contact cardiology if any increase
Cards following
#Hypokalemia
3.4
Send home with K supplements
Repeat BMP in one week
#Hypercalcemia
Continuously slightly elevated
PTH elevated
Low vit D
Likely primary hyperparathyroidism
History of nephrolithiasis
calcitonin, PTHrP and phosphorus pending
Prior partial thyroidectomy
#COPD
Continue albuterol, budesonide, fluticasone home meds as needed
DuoNebs as needed
#Hypertension
Continue carvedilol
#CAD status post CABG
#Hyperlipidemia
Continue atorvastatin
#Paroxysmal a.fib
Patient with a ACID
Continue anti-coag with dabigatran
Continue for carvedilol, Pradaxa
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
Creatinine 2.5 baseline 2.3
Okay to continue diuretics per cardiology 1 mg Bumex
Right atrophic kidney and bilateral nephrolithiasis noted on ab/pelvic CT could be contributing
Not interested in dialysis if Cr worsens
Dabigatran renal dosing 75mg BID
Monitor BMP
#Hypermagnesemia
2.5
repeat mg in one week
Hold mag supplement
#Liver 1.9cm low-density patient left upper left lobe liver
Unchanged from prior CT
Normal LFTs
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
Follow-up in outpatient
#Bilateral nephrolithiasis
Asymptomatic
f/u in outpatient
Has had prior kidney stone removal 2021
#Mild fusiform dilation of abdominal aorta
2.8 cm, stable from prior CT
#Hx peptic ulcer disease
- continue pantoprazole 40 BID
#L leg sciatica/peripheral neuropathy
-Restart gabapentin home dose as creatinine at baseline
#Hx severe aortic valve stenosis s/p bio AVR and CABGx2 05/2017 LOGAN-LAD, VG-PDA. Stable on echo 03/2023
#Hx of thoracic ascending aortic aneurysm s/p aortic tube graft replacement 2017
#hx of dilated aortic root
#hx of ischemic cardiomyopathy
#hx a.fib now AICD
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
#hx thyroid cancer s/p thyroidectomy 2010
#Hx L inguinal hernia s/p repair 11/19/2021
#hx lung cancer s/p RUL lobectomy 2010
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
#hx R eye cataracts
#Hx CVA
#hx CA/PCI 2004
DVT - Dabigatran renal dosing
Full Code
Anticipated Discharge: Today
Subjective/Interval History
-
Date of Service: December 16, 2023
Objective Data
-
Labs:
Laboratory Results
12/16/23
07:02
WBC 9.2
Hgb 13.2
Hct 38.7 L
Plt Count 237
Sodium 141
Potassium 3.4 L
Chloride 100
Carbon Dioxide 25
BUN 64 H
Creatinine 2.5 H
Glucose 96
Calcium 10.4 H
Total Bilirubin 0.7
AST 14 L
ALT 14
Alkaline Phosphatase 116
Vital Signs:
Vital Signs
Temp Pulse Resp BP Pulse Ox
98.0 F 72 18 122/63 94
12/16/23 03:30 12/16/23 07:56 12/16/23 07:56 12/16/23 03:30 12/16/23 07:56
I&O
12/15/23 12/16/23 12/17/23
06:59 06:59 06:59
Intake Total 1080 / 1080 1560 / 1560
Output Total 1200 / 1200 1225 / 1225
Balance -120 / -120 335 / 335
Review of Systems
-
History Source: Patient
Constitutional: Reports Fatigue
Respiratory: Reports No Symptoms
Cardiac: Reports No Symptoms
Abdomen/GI: Reports No Symptoms
Neuro: Reports No Symptoms
Physical Exam
-
General: Comfortable
Respiratory: Clear to Auscultation
Cardiac: Regular Rhythm and S1/S2
GI: Soft, Nontender and Distended
Skin: Warm
Neuro: AO x 3
Psych: Calm
--- NOTE | 2023-12-16 09:57 | W.PN.CD ---
Today's Communication / Plan
-
Plan will be for p.o. Bumex 1 mg daily
Increase standing potassium to 40 mEq daily
Continue carvedilol for GDMT
If he is being discharged today, please let us know and we can get him scheduled for follow-up
Impression / Plan
-
78-year-old male with history of chronic HFrEF, paroxysmal atrial fibrillation with AICD , CAD s/p CABG, bioprosthetic valve presented to the ED with weight gain, abnormal creatinine values. Cardiology was consulted for CHF evaluation and
treatment.
Assessment and plan
Hypokalemia
Increase standing potassium to 40 mEq daily
Acute on chronic HFrEF
Weight 86 kg on admission (unknown dry weight) -now down to 82 kg (this is likely his new dry weight)
Continue diuresis with p.o. Bumex 1 mg daily (this will be his discharge dose)
Monitor daily intake and UO
Daily weight check
Echocardiogram 12/08 shows left ventricular ejection fraction 30 to 35% (no change from previous ) with normal functioning bioprosthetic aortic valve, the peak/mean gradient of aortic valve 18/9 mmHg. PASP elevated from 41 to 46 mmHg. No AR.
Mild/moderate TR.
Continue carvedilol. Other GDMT limited by CKD.
RACHELE on CKD, improving
Expect that this was due to aggressive diuresis
Creatinine now back to baseline (2.3-2.4)
Paroxysmal atrial fibrillation
In sinus rhythm here
Continue dabigatran 150 mg and carvedilol 6.25
# History of CAD s/p CABG
# Hypertension
# Hyperlipidemia
Subjective: Sleeping comfortably. No events on telemetry. Received 1 mg p.o. Bumex yesterday. Creatinine 2.5 today from 2.6 (baseline 2.3-2.4). K3.4.
Physical Exam
Vital Signs/Labs
Vital Signs
Temp Pulse Resp BP Pulse Ox
97.4 F 72 18 137/73 94
12/16/23 07:00 12/16/23 07:56 12/16/23 07:56 12/16/23 07:00 12/16/23 07:56
12/15/23 12/16/23 12/17/23
06:59 06:59 06:59
Actual Weight 82.554 kg 82.242 kg
12/16/23 07:02
12/16/23 07:02
Magnesium 2.5 mg/dl (1.6-2.3) H 12/16/23 07:02
TSH 0.89 uIU/ml (0.47-4.68) 12/09/23 06:45
12/08/23
16:48
Agq-G-Dexojsmmegq Pept 2340
Physical Exam
Constitutional: No acute distress and Comfortable
Cardiovascular: Rhythm & rate is regular, Pedal edema is absent, JVD pressure is normal, S1S2 is normal and Murmur/rub/gallop absent
Respiratory: Respiratory effort normal and Lungs clear to auscul.
GI: Distention present
Data Reviewed
-
Date of Service: December 16, 2023
Medical Decision Making: Reviewed Test Results, Independent Historian Assessment, Test Interpretation and Review of Case with other Provider
EKG: Tracing Personally Visualized and interpreted
Echo: Report Reviewed by me
Labs: Labs Reviewed by me
[2023-12-16 11:00] VITALS: BP 130/65
[2023-12-16 11:09] LABS: Free T4 1.42 ng/dl (0.78-2.19)
--- NOTE | 2023-12-16 12:49 | CM ---
CM following re: discharge planning.
Reviewed pt's chart, met with pt.
According to MD pt is medically stable to be discharged today. Pt is awre, expressed his agreement and pt stated hes spouse will transport home. IMM reviewed, placed on chart, pt has a copy.
Pt is aware he will have [facility] services upon the discharge.
A referral to [facility] noted.
Please fax discharge instructions to [facility] at [phone]
D/C plan: home with [facility] and family support. Spouse to transport
[2023-12-16 14:00] VITALS: BP 121/64
--- NOTE | 2023-12-16 16:20 | W.DCSUMMARY ---
Discharge Summary
Discharge Data
Date of Admission: 12/08/23
Date of Discharge: 12/16/23
-
Pending Results: Yes
Additional Pending Results:
Calcitonin, PTH related peptide
Hospital Course
Primary diagnosis:
Acute on chronic heart failure with reduced ejection fraction exacerbation
Secondary diagnosis:
RACHELE on CKD stage IIIb progression to CKD stage IV
Hypokalemia
Permanent atrial fibrillation
COPD
Aortic stenosis
Hypertension
CAD
Lung cancer status post right upper lung resection
Hyperlipidemia
Peripheral neuropathy
Hypermagnesemia
GERD
Pleasant 78-year-old male with past medical history of HFrEF presented to ED after bowling pin refinisher told him to come in. Outpatient creatinine 3.0 and patient had gained 10 to 15 pound over past month despite increase in home p.o. Lasix. Chest x-ray
showed no signs of pulmonary edema, no lower extremity swelling, but JVD present and distended abdomen. Patient stated he more commonly accumulates fluid in abdomen rather than legs. Patient admitted, cardiology consulted. Started him on 80 mg IV
twice daily. Diuresis came to a standstill. Cardiology added 5 mg metolazone. Significant weight loss. On 12-13-2023 patient's creatinine bumped to 2.8 from 2.4. Diuretics held. Restarted on 12/14 on Bumex 1 mg daily. Patient also noted to have
elevated Ca. Work up for hypercalcemia was started with PTH elevated 271.8, Vit D low 25, phosphate 1.35. Likely primary hyperparathyroidism and will likely need parathyroid removal. Patient is symptomatic with recurrent kidney stones. Referal to
endocrinology recommended.
Today, Cr 2.5. Patient is being sent home on 1mg bumax and 40mEq K with repeat BMP and mag in one week with instructions for daily weight monitoring. If >3lb change in one day or >5 in one week instructed to call bowling pin refinisher for change in
medication. Referall to endocrinology added and follow up with bowling pin refinisher.
Discharge Plan
-
Patient Disposition: Home (Routine Discharge)
Discharge Diagnosis/Procedures: Acute on chronic heart failure with reduced ejection fraction exacerbation
Condition: Fair
Diet: 2 Gram Sodium and Restrict fluids to 64 oz
Activity: As tolerated
Driving Restrictions: As prior to admission
Bathing Restrictions: None
Other Services: VN, PT and OT
Specialty Instructions: Weigh Daily- Call MD for wt gain/loss 3 lbs overnight/5 lbs in 1 week
Instructions: *CBC Heart Failure Instructions
Referrals:
Patric Riley MD [Family Provider] - in less than 1 week
Diana Mendoza NP [Specified Professional Personl] - 01/13/24 10:20 am
Nicole Alas MD [Consulting Staff] - As needed (For hypercalcemia likely primary hyperparathyroidism)
Additional Discharge Medication Instructions: Repeat BMP and magnesium in 1 week.
And let cardiology know if gaining weight:
� More than 3 pounds overnight
� More than 5 pounds in a week
They will adjust your medications as necessary
Prescriptions:
New
bumetanide 1 mg Tablet
1 mg PO DAILY 30 Days Qty: 30 0RF
dabigatran etexilate [Pradaxa] 75 mg Capsule
75 mg PO BID 30 Days Qty: 30 0RF
Continued
atorvastatin 40 MG tablet
40 mg PO HS
carvedilol [Coreg] 6.25 mg Tablet
6.25 mg PO Q12H
gabapentin 300 mg Capsule
600 mg PO HS
acetaminophen [Tylenol Extra Strength] 500 mg Tablet
1,000 mg PO Q6HPRN PRN (Reason: mild pain)
pyridoxine (vitamin B6) [Vitamin B-6] 50 mg Tablet
50 mg PO DAILY
albuterol sulfate 2.5 mg /3 mL (0.083 %) Solution For Nebulization
2.5 mg INHALATION R Q48H
Patient Comments:
12/08/23: Mix in nebulizer with budesonide and ipratropium.
ascorbic acid (vitamin C) [Vitamin C] 500 mg Tablet
500 mg PO DAILY
gabapentin 300 mg Capsule
300 mg PO DAILY
budesonide 0.5 mg/2 mL Suspension For Nebulization
0.5 mg INHALATION R Q48H
Patient Comments:
12/08/23: Mix in nebulizer with albuterol and ipratropium.
ipratropium bromide 0.02 % Solution
2.5 ml INHALATION R Q48H
Patient Comments:
12/08/23: Mix in nebulizer with albuterol and budesonide
Trelegy Ellipta 200-62.5-25 mcg Blister With Device
1 inh INHALATION R Q48H
pantoprazole 40 mg Tablet,Delayed Release (Dr/Ec)
40 mg PO BID Qty: 60 0RF
Changed
potassium chloride 20 mEq Tablet Extended Release
20 meq PO BID 30 Days Qty: 60 0RF
Held
magnesium oxide 400 mg magnesium Tablet
400 mg PO Q48H
Hold Instructions: Resume on 12/23/23. Ask PCP to recheck Magnesium. Currently high. If goes back down, then consider re-starting.
Discontinued
dabigatran etexilate [Pradaxa] 150 mg Capsule
150 mg PO BID
furosemide 40 mg tablet
40 mg PO DAILY
Patient Comments:
12/08/23: Fluctuating dosage recently due to doctor's recommendations.
Discharge Orders:
Discharge Patient (As Directed); Ordered 12/16/23
Ordered By: Marisol Aggarwal
Discharge Date and Time
Discharge Date/Time: 12/16/23 15:45
Print Language: ANGOLAN
[2023-12-16 23:05] LABS: Calcitonin 13.2 pg/mL (0.0-7.5)
== END 2023-12-16 15:45 | disposition home health service (06) | DRG 291 ==
LOC: 4 WEST ACU 23:55
PROVIDERS: Internal Medicine; Nurse Practitioner Family; Registered Nurse; Student in an Organized Health Care Education/Training Program; ADMITTING PHYSICIAN Internal Medicine; ATTENDING PHYSICIAN Hospitalist; CONSULT PHYSICIAN Internal Medicine; EMERGENCY PHYSICIAN Student in an Organized Health Care Education/Training Program; FAMILY PHYSICIAN Family Medicine
DX: I13.0 Hypertensive heart and chronic kidney disease with heart failure and stage 1 through stage 4 chronic kidney disease, or unspecified chronic kidney disease (principal); I50.23 Acute on chronic systolic (congestive) heart failure; N18.4 Chronic kidney disease, stage 4 (severe); N17.9 Acute kidney failure, unspecified; I48.21 Permanent atrial fibrillation; I25.10 Atherosclerotic heart disease of native coronary artery without angina pectoris; J44.9 Chronic obstructive pulmonary disease, unspecified; I25.5 Ischemic cardiomyopathy; I35.0 Nonrheumatic aortic (valve) stenosis; E78.00 Pure hypercholesterolemia, unspecified; E21.0 Primary hyperparathyroidism; K21.9 Gastro-esophageal reflux disease without esophagitis; G62.9 Polyneuropathy, unspecified; E87.6 Hypokalemia; E89.0 Postprocedural hypothyroidism; Z95.3 Presence of xenogenic heart valve; Z95.810 Presence of automatic (implantable) cardiac defibrillator; Z79.51 Long term (current) use of inhaled steroids; Z95.1 Presence of aortocoronary bypass graft; Z85.118 Personal history of other malignant neoplasm of bronchus and lung; Z88.5 Allergy status to narcotic agent; Z88.0 Allergy status to penicillin; Z87.891 Personal history of nicotine dependence; Z79.899 Other long term (current) drug therapy; Z86.73 Personal history of transient ischemic attack (TIA), and cerebral infarction without residual deficits
CPT/HCPCS: 71046; 74176; 80048; 80053; 82306; 82308; 82330; 82607; 82728; 83519; 83540; 83550; 83735; 83880; 83970; 84100; 84439; 84443; 84484; 85025; 85027; 93005; 93306; 94640; 97110; 97116; 97162; 97166; 97530; 97535; 99285

== ENCOUNTER → 2023-12-22 12:01 | Outpatient (REF) | payer OTHER, SELFPAY ==
[2023-12-22 13:12] LABS: Blood Urea Nitrogen 49 mg/dl (9-20); Calcium 10.7 mg/dl (8.4-10.2); Carbon Dioxide 25 mmol/L (22-30); Chloride 103 mmol/L (98-107); Glucose 95 mg/dl (70-99); Potassium 4.1 mmol/L (3.5-5.1); Sodium 140 mmol/L (135-145); eGFR 25.82
== END ==
LOC: CLAB 12:01
PROVIDERS: ATTENDING PHYSICIAN Family Medicine; REFERRING PHYSICIAN Student in an Organized Health Care Education/Training Program
DX: I50.23 Acute on chronic systolic (congestive) heart failure (principal)
CPT/HCPCS: 80048; 83735

== ENCOUNTER → 2024-01-02 12:00 | Outpatient (REF) | payer OTHER, SELFPAY ==
[2024-01-02 16:46] LABS: Blood Urea Nitrogen 24 mg/dl (9-20); Calcium 10.1 mg/dl (8.4-10.2); Carbon Dioxide 24 mmol/L (22-30); Chloride 105 mmol/L (98-107); Glucose 98 mg/dl (70-99); Potassium 4.3 mmol/L (3.5-5.1); Sodium 142 mmol/L (135-145); eGFR 30.09
== END ==
LOC: CLAB 12:00
PROVIDERS: ATTENDING PHYSICIAN Student in an Organized Health Care Education/Training Program; FAMILY PHYSICIAN Family Medicine
DX: I50.22 Chronic systolic (congestive) heart failure (principal)
CPT/HCPCS: 36415; 80048

== ENCOUNTER → 2024-01-16 13:32 | Outpatient (REF) | payer OTHER, SELFPAY ==
[2024-01-16 17:47] LABS: Blood Urea Nitrogen 25 mg/dl (9-20); Calcium 10.3 mg/dl (8.4-10.2); Carbon Dioxide 23 mmol/L (22-30); Chloride 107 mmol/L (98-107); Glucose 102 mg/dl (70-99); Potassium 4.4 mmol/L (3.5-5.1); Sodium 144 mmol/L (135-145); eGFR 25.82
== END ==
LOC: HWLAB 13:32
PROVIDERS: ATTENDING PHYSICIAN Internal Medicine Endocrinology, Diabetes & Metabolism; FAMILY PHYSICIAN Family Medicine; REFERRING PHYSICIAN Student in an Organized Health Care Education/Training Program
DX: E21.0 Primary hyperparathyroidism (principal); I48.91 Unspecified atrial fibrillation
CPT/HCPCS: 76536; 80048

== ENCOUNTER → 2024-02-21 11:00 | Outpatient (REF) | payer OTHER, SELFPAY ==
[2024-02-21 12:20] LABS: Blood Urea Nitrogen 51 mg/dl (9-20); Calcium 10.1 mg/dl (8.4-10.2); Chloride 94 mmol/L (98-107); Glucose 103 mg/dl (70-99); Potassium 3.3 mmol/L (3.5-5.1); Sodium 138 mmol/L (135-145); eGFR 22.53
[2024-02-21 12:29] LABS: Carbon Dioxide 29 mmol/L (22-30)
== END ==
LOC: REG 11:00
PROVIDERS: ATTENDING PHYSICIAN Nurse Practitioner
DX: I50.20 Unspecified systolic (congestive) heart failure (principal)
CPT/HCPCS: 36415; 80048

== ENCOUNTER → 2024-03-09 12:34 | Outpatient (REF) | payer OTHER, SELFPAY ==
[2024-03-09 13:46] LABS: Blood Urea Nitrogen 26 mg/dl (9-20); Carbon Dioxide 24 mmol/L (22-30); Chloride 105 mmol/L (98-107); Glucose 97 mg/dl (70-99); Potassium 4.2 mmol/L (3.5-5.1); Sodium 140 mmol/L (135-145); eGFR 27.11
== END ==
LOC: REG 12:34
PROVIDERS: ATTENDING PHYSICIAN Student in an Organized Health Care Education/Training Program; FAMILY PHYSICIAN Family Medicine
DX: I25.5 Ischemic cardiomyopathy (principal)
CPT/HCPCS: 36415; 80048

== ENCOUNTER → 2024-03-19 11:26 | Outpatient (REF) | payer OTHER, SELFPAY ==
[2024-03-19 12:49] LABS: Blood Urea Nitrogen 26 mg/dl (9-20); Calcium 10.3 mg/dl (8.4-10.2); Carbon Dioxide 30 mmol/L (22-30); Chloride 102 mmol/L (98-107); Glucose 89 mg/dl (70-99); Potassium 4.8 mmol/L (3.5-5.1); Sodium 137 mmol/L (135-145); eGFR 27.11
== END ==
LOC: REG 11:26
PROVIDERS: ATTENDING PHYSICIAN Student in an Organized Health Care Education/Training Program; FAMILY PHYSICIAN Family Medicine
DX: I50.20 Unspecified systolic (congestive) heart failure (principal)
CPT/HCPCS: 36415; 80048; 83735

== ENCOUNTER 2024-03-20 04:35 | Inpatient (IN) | payer OTHER, SELFPAY ==
[2024-03-20] VITALS (58 sets, daily range): BP systolic 83–152; BP diastolic 47–92; BMI 26.2
--- NOTE | 2024-03-20 00:44 | ED.GENMED ---
History of Present Illness
General
Chief Complaint: Chest Pain
Source: patient and ambulance crew
Exam Limitations: none
Time Seen by Provider: 03/20/24 00:40
History of Present Illness
History of Present Illness:
See MDM
Past History
Past History
ED Past Medical History: Arrthythmia (Atrial fib), CAD, Cancer (lung/Thyroid), CHF, COPD, CVA, HTN, Hypercholesterolemia, [place], Valvular disease and Other (sepsis, Headache over the left eye continually, Renal issues, Blind left eye, Ulcers)
ED Past Surgical History: Appendectomy, Cardiac (CABG, stents), Tonsilectomy, Urological (Bladder repair, ) and Other (Laparoscopic left inguinal hernia repair November 19, 2021, Left upper lobectomy, thyroidectomy)
Social History
Tobacco: Former smoker (Sneaking a few cigarettes according to .)
Alcohol: Daily (Wine 1)
Drug: None
Personal:
Living: with family
Employment: Retired
Family History
Family History: Other (Noncontributory)
Phy Exam
Physical Exam
Physical Exam:
See MDM
Scores
Heart Score for Chest Pain Patients
STEMI patient?: No
History: Highly Suspicious
ECG: Nonspecific Repolarization
Age: >/= 65 years
Risk Factors: >/= 3 Risk Factors or History of CAD
Troponin: >1 - <3 x Normal Limit
Heart Score for Chest Pain Patients: 8
Heart Score Risk: 72.7 % MACE over next 6 weeks
Course
Orders/Labs/Results
Orders:
Orders
03/20/24 00:37
Electrocardiogram (*1) Urgent
Reason for Study: Chest Pain
Cardiac Monitoring- Treatment ONCE
EKG- Treatment ONCE
IV Insert/Care/Rem.- Treatment PRN
O2 Therapy [RESP] Urgent
Titrate/Wean O2 to maintain O2 sat greater than (%): 90
Special Instructions: Maintain sats >/=90%
Pulse Ox/spot Check [RESP] Urgent
Quantity: 1
Special Instructions: ON ROOM AIR
03/20/24 00:40
CR Chest Portable - 1 View Urgent
Comment:
Reason For Exam: SOB, back pain
Reason Study Needs to be Portable: Patient Unstable
03/20/24 00:42
Nitroglycerin Sublingual [Nitrostat (Sublingual)] 0.4 mg SL NOW STA
03/20/24 00:48
Complete Blood Count/With Diff Urgent
Comprehensive Metabolic Panel Urgent
NT-proBNP Urgent
Comment: ADDED
Troponin I Urgent
03/20/24 01:22
Add On- LAB Urgent
Tests Added?: pro-BNP
03/20/24 01:32
PTT Urgent
Comment: Obtain baseline before beginning heparin infusion if not already collected
Heparin 4,000 units IV NOW STA
Pharmacy Request to Place See Dose Instructions PO NOW STA
Discontinue all Active Warfarin orders?: Yes
Nursing to Place Non Medication Order As Directed
Physician Order: PTT 6 hours after initial start of Heparin infusion
03/20/24 01:35
Nitroglycerin 100 mg/250 ml [Nitroglycerin Premix] 100 mg in 250 ml IV NOW
Initial dose in mcg/min, then titrate:: 5
Titrate to keep:: SBP < 160 mmHg
Titrate by mcg/min:: 5 mcg/min, may increase by 10 mcg/min if dose > 20 mcg/min
Frequency of titrations (minutes):: every 3-5 minutes
Maximum dose in mcg/min:: 200
Begin to taper infusion when:: Remained at goal for 2hrs
Taper by mcg/min:: 5 mcg/min
Frequency of taper (minutes) if patient maintains goal:: 30
Taper to off?: Yes
If infusion off & no longer maintaining goal:: Contact Provider
03/20/24 01:45
Heparin 14104 Units/250 ml 25,000 units in 250 ml IV PER PROTOCOL
Weight to be used for heparin protocol in kilograms (kg):: 91.5
Protocol:: Cardiac Tx/Acute Coronary
PTT Goal Range to be used:: PTT 73 to 111 seconds
Order type:: Initial
INITIAL Infusion Dose (UNITS/KG/hr) & then follow protocol:: 12 units/kg/hr
Infusion Dose in UNITS/hr & then follow protocol (UNITS/hr):: 1,000
INFUSION RATE in mL/hr & then follow protocol (mL/hr):: 10
PTT less than or equal to 64 seconds:: Increase rate by 200 units/hr (+ 2 mL/hr)
PTT 64.1 to 72.9 seconds:: Increase rate by 100 units/hr (+ 1 mL/hr)
PTT 73 to 111 seconds:: Target Range. No change in rate.
PTT 111.1 to 130.9 seconds:: Decrease rate by 100 units/hr (- 1 mL/hr)
PTT 131 to 199.9 seconds:: HOLD for 1 hr. Then decrease rate by 200 units/hr (- 2 mL/hr)
PTT greater than or equal to 200 seconds:: HOLD for 2 hrs & Notify Provider. Then decrease by 200 units/hr (-
2 mL/hr)
Lab follow-up:: Each change, PTT q6h until 2 consecutive are therapeutic. Then PTT
daily.
03/20/24 02:[address] See Dose Instructions IV DIRECTED
Abnormal Lab Results
03/20/24
00:48
RBC 4.14 L 10^6/uL
(4.70-6.10)
Hgb 11.8 L g/dL
(13.0-18.0)
Hct 36.0 L %
(39.0-52.0)
MCHC 32.8 L g/dL
(33.0-37.0)
RDW 14.8 H %
(11.5-14.5)
Abs Immat Gran (auto) 0.1 H 10^3/uL
(0-0.05)
Absolute Monos (auto) 1.2 H 10^3/uL
(0.1-0.6)
Immature Gran % 0.6 H %
(0-0.5)
Lymphocytes % 15.6 L %
(20.5-51.1)
Monocytes % 13.9 H %
(1.7-9.3)
BUN 26 H mg/dl
(9-20)
Creatinine 2.4 H mg/dL
(0.7-1.3)
Glucose 107 H mg/dl
(70-99)
AST 14 L U/L
(17-59)
Alkaline Phosphatase 132 H U/L
(38-126)
Troponin I 0.037 H* ng/ml
Albumin 3.3 L g/dl
(3.5-5.0)
03/20/24 00:48
03/20/24 00:48
Vital Signs
Initial and Last Documented VS:
Initial Vital Signs
Resp
19
03/20/24 00:38
Last Documented Vital Signs
Temp Pulse Resp BP Pulse Ox
97.7 F 56 20 109/74 93
03/20/24 00:39 03/20/24 01:15 03/20/24 01:15 03/20/24 01:15 03/20/24 01:15
MDM/Problems Addressed
Differential Diagnosis Includes:
HPI and MDM Narrative:
78-year-old male presenting with shortness of breath and back pain. Patient has significant cardiovascular history. Patient states the last time he had the symptoms, he needed a stent in his heart. EMS started nitroglycerin which seemed to help.
EMS was concerned because there EKG was reading as a STEMI. However, the transmitted EKG was not as obvious. Patient was met by myself and nursing staff on arrival. EKG done immediately showing ventricular paced rhythm. There is mild ST
elevation anteriorly without reciprocal changes. Prior EKG shows similar issues. STEMI alert was not called. However, I am still concerned for acute coronary syndrome. Will give dose of nitro. Patient took aspirin already
Physical exam
General: Mildly uncomfortable
HEENT: protecting airway
Neck: appears supple
CV: No evidence of cyanosis. Regular rate and rhythm
Resp: No accessory muscle use. Lungs clear
Abd: Non-distended
Extremities: No deformities
Neuro: alert
Psych: Normal affect
Skin: Intact
Problems Addressed including Acute and Chronic Conditions affecting care:
1. Shortness of breath and back pain
Acuity: acute
Prognosis: unstable
Details: Concern for acute coronary syndrome. Initial EKG does not show STEMI. Patient still uncomfortable and will give nitro.
Updates
Symptoms improved with nitroglycerin. However, blood pressure does drop. When nitro wears off, symptoms recur. Troponin is mildly elevated but appears to be elevated at baseline. Given his strong cardiac history and his active chest pain, will
start heparin drip and nitro drip and admit
Differential Diagnosis (but not limited to): Acute coronary syndrome, musculoskeletal pain, noncardiac chest pain
Testing considered: D-dimer but he is on Pradaxa
Drug therapy (if applicable): OTC meds, please see d/c instruction regarding Rx drugs
Amount and/or Complexity of Data Reviewed
Clinical info obtained from: Patient
External data reviewed: N/A
Labs I independently reviewed (but not limited to): Elevated troponin
Radiology: X-ray independently reviewed: Chest x-ray shows no evidence of widened mediastinum. Potential mild pulm edema
Pulse Ox: not hypoxic
EKG independently reviewed: Ventricular paced rhythm, PVCs, mild ST elevation anteriorly but this appears unchanged from prior
Money Manager: Paced rhythm
Critical Care: The high probability of a clinically significant, sudden or life threatening deterioration of the cardiovascular system(s) required my full and direct attention, intervention and personal management. The aggregate critical care time
was 35 minutes. This time is in addition to time spent performing reported procedures but includes the following:
[x] Data Review and interpretation
[x] Patient assessment and monitoring of vital signs
[x] Documentation
[x] Medication orders and management
Risk of Complication:
Social Determinants of health: Good social support
Discussed with other providers: Hospitalist
Escalation of Care includes Admit/Obs: Given the concern for acute coronary syndrome, will admit on heparin and nitroglycerin drip
Occasional wrong word or 'sound a like' substitutions may have occurred due to the inherent limitations of voice recognition software. Read the chart carefully and recognize, using context, where substitutions have occurred.
*Critical Care Note
Total Time (30-74mins, 75-104mins- exclusive of procedures): 35 min
ED Attending Note
-
Portions of this chart may have been created with voice recognition software.� Occasional wrong word or��sound alike� substitutions may have occurred due to the inherent limitations of voice recognition software.
Discharge Plan
Departure
Patient Disposition: Admit
Date of Disposition: 03/20/24
Time of Disposition: 01:40
Admit to: IMU
Presentation/result/management discussed w/ accepting MD/DO: Hospitalist
Discharge Problem:
ACS (acute coronary syndrome)
Prescriptions:
No Action
atorvastatin 40 MG tablet
40 mg PO HS
carvedilol [Coreg] 6.25 mg Tablet
6.25 mg PO Q12H
gabapentin 300 mg Capsule
600 mg PO HS
magnesium oxide 400 mg magnesium Tablet
400 mg PO Q48H
acetaminophen [Tylenol Extra Strength] 500 mg Tablet
1,000 mg PO Q6HPRN PRN (Reason: mild pain)
pyridoxine (vitamin B6) [Vitamin B-6] 50 mg Tablet
50 mg PO DAILY
albuterol sulfate 2.5 mg /3 mL (0.083 %) Solution For Nebulization
2.5 mg INHALATION R Q48H
Patient Comments:
12/08/23: Mix in nebulizer with budesonide and ipratropium.
ascorbic acid (vitamin C) [Vitamin C] 500 mg Tablet
500 mg PO DAILY
gabapentin 300 mg Capsule
300 mg PO DAILY
budesonide 0.5 mg/2 mL Suspension For Nebulization
0.5 mg INHALATION R Q48H
Patient Comments:
12/08/23: Mix in nebulizer with albuterol and ipratropium.
ipratropium bromide 0.02 % Solution
2.5 ml INHALATION R Q48H
Patient Comments:
12/08/23: Mix in nebulizer with albuterol and budesonide
Trelegy Ellipta 200-62.5-25 mcg Blister With Device
1 inh INHALATION R Q48H
bumetanide 1 mg Tablet
1 mg PO DAILY 30 Days Qty: 30 0RF
dabigatran etexilate [Pradaxa] 75 mg Capsule
75 mg PO BID 30 Days Qty: 30 0RF
potassium chloride 20 mEq Tablet Extended Release
20 meq PO BID 30 Days Qty: 60 0RF
pantoprazole 40 mg Tablet,Delayed Release (Dr/Ec)
40 mg PO BID Qty: 60 0RF
Interventions
Interventions:
*Risk Screen - Suicide Last Done: 03/20/24 00:39
*General Assessment Last Done: 03/20/24 00:39
*Neglect/Abuse Screening Last Done: 03/20/24 00:39
*ED COVID-19 Vaccine History Last Done: 03/20/24 01:18
ED- Cardiac Assessment Last Done: 03/20/24 01:18
Discharge Date and Time
Print Language: SETSWANA
[2024-03-20] MEDS: NITROSTAT (SUBLINGUAL) 0.4 MG SL (00:51)
[2024-03-20 01:15] LABS: % Basophils 1.3 % (0-2); % Eosinophils 3.1 % (0-6); % Immature Granulocytes 0.6 % (0-0.5); % Lymphocytes 15.6 % (20.5-51.1); % Monocytes 13.9 % (1.7-9.3); % Neutrophils 65.5 % (42.2-75.2); Absolute Basophils 0.1 10^3/uL (0-0.2); Absolute Eosinophils 0.3 10^3/uL (0-0.7); Absolute Immature Granulocytes 0.1 10^3/uL (0-0.05); Absolute Lymphocytes 1.3 10^3/uL (1.2-3.4); Absolute Monocytes 1.2 10^3/uL (0.1-0.6); Absolute Neutrophils 5.5 10^3/uL (1.4-6.5); Hemoglobin 11.8 g/dL (13.0-18.0); Mean Corp Hgb Conc. 32.8 g/dL (33.0-37.0); Mean Corpuscular Hgb 28.5 pg (27.0-31.0); Mean Platelet Volume 10.3 fL (7.4-10.4); Nucleated Red Blood Cells % 0 % (-); Platelet Count 229 10^3/uL (130-400); Red Blood Cell Count 4.14 10^6/uL (4.70-6.10); Red Cell Dist. Width 14.8 % (11.5-14.5); White Blood Cell Count 8.4 10^3/uL (4.8-10.8)
[2024-03-20 01:20] LABS: ALT (SGPT) 12 U/L (0-50); AST (SGOT) 14 U/L (17-59); Albumin 3.3 g/dl (3.5-5.0); Alkaline Phosphatase 132 U/L (38-126); Blood Urea Nitrogen 26 mg/dl (9-20); Calcium 9.8 mg/dl (8.4-10.2); Carbon Dioxide 29 mmol/L (22-30); Chloride 103 mmol/L (98-107); Estimated Creatinine Clearance 28 ml/min; Glucose 107 mg/dl (70-99); Sodium 136 mmol/L (135-145); Total Bilirubin 0.7 mg/dl (0.2-1.3); Total Protein 6.3 g/dl (6.3-8.2); eGFR 27.11
[2024-03-20 01:27] LABS: Troponin I 0.037 ng/ml
[2024-03-20] MEDS: NITROGLYCERIN PREMIX 250 IV (01:43)
[2024-03-20 02:00] LABS: NT-proBNP 2710 pg/ml
[2024-03-20 02:01] LABS: APTT 52.8 Sec (23.4-35.0)
[2024-03-20] MEDS: HEPARIN 4000 UNITS IV (02:32)
[2024-03-20] MEDS: HEPARIN 25000 UNITS/250 ML IV (02:38)
--- NOTE | 2024-03-20 04:19 | HPS.HSE ---
Family Physician
-
Family Physician: NOT KNOW UNKNOWN - PT DOES
Chief Complaint
-
Back Pain
History of Present Illness
Patient is a 78y M with PMH significant for ASCVD, HTN and CKD who presents to ED complaining of back pain that started this evening. Patient states that he developed pain between the shoulder blades around 5:30 PM this evening. The pain became
quite severe later in the evening - rating a 9.5/10. This prompted him to present to the ED for further evaluation. Patient states that his current discomfort is identical to symptoms his had with his prior [place]. He notes pain in the back without
anterior chest pain, diaphoresis, nausea, etc. He does report associated SOB.
No recent fevers / chills, cough, GI or symptoms.
Patient has had recent issues with exertional dyspnea and weight gain / abdominal distention.
His Bumex dose was increased about one week ago (to 3mg BID). He states that he has not realized any significant weight loss since that time.
He had labs done as an outpatient this AM which were stable / unremarkable.
Medical History
Past Medical History
Past Medical History: Reports Other
Additional Past Medical History:
Hypertension
Paroxysmal Atrial Fibrillation
Valvular Heart Disease
HFrEF
ASCVD
CKD stage III
Lung Cancer
Thyroid Cancer
Left Eye Chronic Blindness (childhood trauma)
Past Surgical History: Reports Other
Additional Past Surgical History:
CABG
PTCA with Stent
AICD
Right upper lobectomy
Partial Thyroidectomy
Hernia repair
Laparotomy / Bladder Repair
T&A
Appendectomy
Social History
Tobacco: Former Smoker (> 50 pack years total use.)
Alcohol: None
Drug: None
Personal:
Living: With Family
Employment: Retired
Family History
Family History: Not pertinent
Allergies / Home Medications
Allergies reflects when Allergies were last updated in [employer].
Home Medications with original date entered in [employer]
Allergy/Medication List:
Allergies
Allergy/AdvReac Type Severity Reaction Status Date / Time
codeine [Codeine] Allergy nausea Verified 03/20/24 00:38
vomiting
Penicillins Allergy Hives, Verified 03/20/24 00:38
swelling,
tolerated
ceftriaxone
Feb 2020
Home Medications
atorvastatin 40 mg tablet 40 mg PO HS High cholesterol 04/25/22
carvedilol 6.25 mg tablet (Coreg) 6.25 mg PO Q12H blood pressure / heart condition 03/14/23
gabapentin 300 mg capsule 600 mg PO HS Pain 03/14/23
magnesium oxide 400 mg PO Q48H Electrolyte Repletion 03/14/23
acetaminophen 500 mg tablet (Tylenol Extra Strength) 1,000 mg PO Q6HPRN PRN mild pain 04/01/23
pyridoxine (vitamin B6) 50 mg tablet (Vitamin B-6) 50 mg PO DAILY Supplement 04/01/23
albuterol sulfate 2.5 mg/3 mL (0.083 %) solution for nebulization 2.5 mg inhalation R Q48H Lung/Breathing Issues 12/08/23
ascorbic acid (vitamin C) 500 mg tablet (Vitamin C) 500 mg PO DAILY Supplement 12/08/23
budesonide 0.5 mg/2 mL suspension for nebulization 0.5 mg inhalation R Q48H Lung/Breathing Issues 12/08/23
fluticasone fur. 200 mcg-umeclid 62.5 mcg-vilant 25 mcg inhalat.powder (Trelegy Ellipta) 1 inh inhalation R Q48H Lung/Breathing Issues 12/08/23
gabapentin 300 mg capsule 300 mg PO DAILY pain 12/08/23
ipratropium bromide 0.02 % solution for inhalation 2.5 ml inhalation R Q48H Allergies 12/08/23
dabigatran etexilate 75 mg capsule (Pradaxa) 75 mg PO BID Blood clot prevention/tx 30 days #30 caps 12/16/23
pantoprazole 40 mg tablet,delayed release 40 mg PO BID Gastrointestinal issue #60 tabs 12/16/23
potassium chloride 20 mEq tablet,extended release 20 meq PO BID Electrolyte Repletion 30 days #60 tabs 12/16/23
bumetanide 1 mg tablet 3 mg PO BID Fluid retention/Swelling 03/20/24
Review of Systems
-
History Source: Patient
A 12 point ROS was completed and negative except as noted: Yes
Constitutional: Denies Fever or Chills
EENT: Denies Sore Throat
Respiratory: Reports Trouble Breathing; Denies Cough
Cardiac: Denies Chest Pain, Diaphoresis, Palpitations or Syncope
Abdomen/GI: Denies Abdominal Pain, Nausea or Vomiting
: Denies Dysuria, Frequency or Flank Pain
Musculoskeletal: Reports Other (Back pain.); Denies Edema
Neurological: Denies Dizzy or Headache
Psych: Denies Depression or Anxiety
Physical Exam
Vital Signs
Vital Signs
Temp Pulse Resp BP Pulse Ox
97.7 F 67 0 149/89 94
03/20/24 00:39 03/20/24 02:30 03/20/24 02:00 03/20/24 02:15 03/20/24 02:15
Physical Exam
General: Other (78y M in mild distress due to upper back pain.)
HEENT: Moist mucous membranes and PERRLA
Respiratory: Clear; No Wheezes, Rales or Rhonchi
Cardiac: S1/S2 and Regular Rhythm; No Murmur
GI: Other (Softly distended. Not tender. Pos BS.)
Musculoskeletal: No Clubbing, No Cyanosis and No Edema
Neuro: AO x 3
Laboratory Results
-
03/20/24 00:48
03/20/24 00:48
Laboratory Results
APTT 52.8 Sec (23.4-35.0) H 03/20/24 01:40
Total Bilirubin 0.7 mg/dl (0.2-1.3) 03/20/24 00:48
AST 14 U/L (17-59) L 03/20/24 00:48
ALT 12 U/L (0-50) 03/20/24 00:48
Alkaline Phosphatase 132 U/L (38-126) H 03/20/24 00:48
Troponin I 0.037 ng/ml H* 03/20/24 00:48
Impression/Plan
-
A/P: Patient is a 78y M with PMH significant for ASCVD, HTN and CKD who presents to ED complaining of back pain since this evening.
Upper Back Pain
ACS
ASCVD
- Admit for further evaluation and treatment.
- Patient with pain similar to prior [place], troponin mildly elevated and has been negative in the past despite CKD.
- EKG is V-paced with a single PVC.
- Pain improved with NTG but not yet fully resolved.
- Titrate NTG infusion for pain control. Add morphine as needed.
- Continue IV heparin.
- Continue ASA, beta-jade, statin, etc.
- Cardiology evaluation for additional recommendations +/- ischemic evaluation.
- Follow for any new / worsening symptoms.
Chronic HFrEF
- LVEF on most recent Echo was 30-35%. (11/2023)
- Recent changes to diuretic regimen without significant weight loss / improvement in dyspnea.
- Change to IV Lasix for now.
- Follow I/Os, daily weights, etc.
- Cardiology evaluation for additional recommendations.
Paroxysmal A-Fib
- Stable. Currently nearly 100% V-paced.
- Continue beta blockade.
- Pradaxa on hold while on IV heparin.
Benign Hypertension
- Stable. Continue home med regimen with holding parameters.
CKD IV
- Stable. Renal function is at / near known baseline.
- Avoid hypotension.
- Follow for changes in renal function.
Anemia of CKD
- Hgb fairly stable compared to prior baseline / trends.
- No recent blood loss / etc.
- Follow for changes.
COPD without Acute Exacerbation
- Stable. No wheezing on exam.
- Inhaled medications PRN.
DVT Prophylaxis: On IV heparin
Code Status: Full
[2024-03-20] MEDS: MORPHINE SULFATE 2 MG IV ×3 (04:30→15:43)
--- NOTE | 2024-03-20 08:10 | CON.CAR ---
Addendum entered and electronically signed by Norberto Engle MD 03/20/24 12:03:
Patient was seen and evaluated personally. I agree with the note, plan of care physical examination and documentation as below.
Briefly, 78-year-old gentleman with complex past medical history including HFrEF with LVEF of 30%, coronary disease with PCI's and CABG (2018) bicuspid aortic valve with severe and dilated aortic root status post bioprosthetic AVR and ascending
aortic tube graft replacement in 2018, right upper lobe lung cancer 2010, COPD, CKD, paroxysmal atrial fibrillation, ICD in place, who presented with chest pain. Patient's pain is concerning as it was similar to his pain prior to his CABG in the
back of his shoulder blades. Patient was started on nitroglycerin drip and heparin drip.
Morphine was given and pain was minimal at the time of my evaluation.
Urgent echocardiogram was done that showed unchanged wall motion abnormalities in the left ventricle with no sign of changes in the ascending aorta. No sign of ischemic changes noted on the EKG which is paced rhythm without any changes from the
previous EKG. No wall motion abnormalities different from the previous echo.
If patient's chest pain becomes evident again, we may have to rule out aortic dissection. Ascending aorta was evaluated with echo that did not show any significant change. Aortic arch and descending aorta needs to be evaluated with CT scan. Case
discussed with CT surgery and are aware.
.
Original Note:
Consultation
Consultation Request
Date/Time Consultation Requested: 03/20/24629
Date/Time Consultation Performed: 03/20/24810
Requesting Provider: Dr. Castellanos
Performing Provider: Qiana ARMENTA for Dr. Engle
Reason for Consultation: ACS
Medical History
-
Chief Complaint: mid upper back pain
History of Present Illness:
78 y/o male (cardiology patient of Dr. Snow) with HFrEF EF 30%, CAD with [place]/PCI 2004 then CABG 2017, bicuspid aortic valve with severe and dilated aortic root (s/p CABG and bio AVR and ascending aortic tube graft replacement 2017), former
tobacco use, right upper lobectomy for lung cancer 2010, CKD, COPD, ICD in place, and PAF on Pradaxa who is here for evaluation of pain in between his shoulder blades that started while he was going up and down stairs last evening around 5:00 PM. It
has been present in varying degrees ever since. He is on heparin and nitro drips and just received morphine and it is a 1/10 and he is in no distress at the time of my assessment. His EKG is Vpaced. Trop is 0.04. Otherwise, as OP weight has been up,
but he hasn't been able to lose it despite increased diuretics. Of note, the back pain is reminiscent of his previous angina.
Past Medical History
Past Medical History: Arrhythmias, CAD, Cancer, CHF, COPD, HTN, NE, Renal Failure and Valvular Disease
Social History
Tobacco: Former Smoker
Family History
Family History: Reviewed & Not Pertinent
Allergies / Home Medications
Allergy/AdvReac Type Severity Reaction Status Date / Time
codeine [Codeine] Allergy nausea Verified 03/20/24 00:38
vomiting
Penicillins Allergy Hives, Verified 03/20/24 00:38
swelling,
tolerated
ceftriaxone
Feb 2020
�Medication �Instructions �Recorded �Confirmed �Type
atorvastatin 40 mg tablet 40 mg PO HS High cholesterol 04/25/22 03/20/24 History
carvedilol 6.25 mg tablet (Coreg) 6.25 mg PO Q12H blood pressure / 03/14/23 03/20/24 History
heart condition
gabapentin 300 mg capsule 600 mg PO HS Pain 03/14/23 03/20/24 History
magnesium oxide 400 mg PO Q48H Electrolyte 03/14/23 03/20/24 History
Repletion
acetaminophen 500 mg tablet 1,000 mg PO Q6HPRN PRN mild pain 04/01/23 03/20/24 History
(Tylenol Extra Strength)
pyridoxine (vitamin B6) 50 mg 50 mg PO DAILY Supplement 04/01/23 03/20/24 History
tablet (Vitamin B-6)
albuterol sulfate 2.5 mg/3 mL 2.5 mg inhalation R Q48H 12/08/23 03/20/24 History
(0.083 %) solution for nebulization Lung/Breathing Issues
ascorbic acid (vitamin C) 500 mg 500 mg PO DAILY Supplement 12/08/23 03/20/24 History
tablet (Vitamin C)
budesonide 0.5 mg/2 mL suspension 0.5 mg inhalation R Q48H 12/08/23 03/20/24 History
for nebulization Lung/Breathing Issues
fluticasone fur. 200 mcg-umeclid 1 inh inhalation R Q48H 12/08/23 03/20/24 History
62.5 mcg-vilant 25 mcg Lung/Breathing Issues
inhalat.powder (Trelegy Ellipta)
gabapentin 300 mg capsule 300 mg PO DAILY pain 12/08/23 03/20/24 History
ipratropium bromide 0.02 % 2.5 ml inhalation R Q48H Allergies 12/08/23 03/20/24 History
solution for inhalation
dabigatran etexilate 75 mg capsule 75 mg PO BID Blood clot 12/16/23 03/20/24 Rx
(Pradaxa) prevention/tx 30 days #30 caps
pantoprazole 40 mg tablet,delayed 40 mg PO BID Gastrointestinal 12/16/23 03/20/24 Rx
release issue #60 tabs
potassium chloride 20 mEq 20 meq PO BID Electrolyte 12/16/23 03/20/24 Rx
tablet,extended release Repletion 30 days #60 tabs
bumetanide 1 mg tablet 3 mg PO BID Fluid 03/20/24 03/20/24 History
retention/Swelling
Review of Systems
-
History Source: Patient
All other systems: Negative unless noted
Constitutional: Weight Gain (hasn't been able to lose it )
Respiratory: Trouble Breathing (chronic HYDE)
Cardiac: Other (back pain, which may be anginal equivalent)
Physical Exam
Vital Signs
Temp Pulse Resp BP Pulse Ox
97.6 F 73 20 116/78 95
03/20/24 06:34 03/20/24 06:23 03/20/24 06:34 03/20/24 06:31 03/20/24 06:34
Lab Results
03/20/24 00:48
03/20/24 00:48
Troponin I 0.037 ng/ml H* 03/20/24 00:48
Knm-H-Qupensmvcqy Pept 2710 pg/ml 03/20/24 00:48
Physical Exam
General: Well Developed, Well Nourished and No Apparent Distress
HEENT: Normocephalic and Anicteric
Respiratory: Clear and Non Labored Respirations
Cardiac: Regular Rhythm
Musculoskeletal: No Edema
Skin: Warm and Dry
Neuro: AO x 3
Psych: Calm
Impression / Plan
-
ACS:
-this diagnosis is threat to life
-continue IV nitro and heparin, both of which require intensive monitoring
-continue ASA, statin, and BB
-Pain between shoulder blades may be anginal equivalent with ACS (abnormal troponin, so possibly NSTEMI), though also concern in this patient with hx aortic tube graft. Cannot do CT scan at this time with his renal dysfunction. Pain improved, but
not resolved.
-echo now to help with overall plan. 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
CAD with hx CABG:
-last cath as below
-w/u as above
-ASA, statin, BB
Cwfms-qw-edxbhuo HFrEF:
-weight has been up and OP diuresis has been unsuccessful
-lungs are clear and no edema
-can work on diuresis once above is sorted out. Hold this AM's dose with borderline BP and poss need for cath.
-of note on [facility] 03/21/23 dry weight 171 lbs. Currently 201.
PAF:
-stable
-continue BB as BP will tolerate
-on Pradaxa as OP, currently on heparin drip as above
CKD:
-monitor
COPD:
-on O2 by NC
-not wheezing
-no longer smoker
Hx Bio AVR:
-updating echo
-was stable on most recent echo as below
ICD in place:
-follow tele
Data:
Echo 12/09/23: EF 30-35%. Asymmetric septal hypertrophy (IVS 1.5 cm, LVPW 1.1 cm). Stage II diastolic dysfunction. Normally functioning bioprosthetic aortic valve with peak/mean gradients across the aortic valve 18/9 mmHg. Mild/moderate tricuspid
regurgitation. Moderately elevated PASP. Pulmonary artery pressure of 46 mmHg.
Cath 10/07/22: Right dominant circulation with an 80% lesion in the mid LAD and a chronic total occlusion of the mid RCA all the way to the bifurcation of the RPDA/RPL and a 30-40% mid RPDA lesion, status post prior two-vessel bypass (patent LOGAN to
mid LAD, patent SVG to mid RPDA backfilling the RPL). Prior aortic valve replacement (#27 Braden magna 2800), well-seated, functioning normally. Prior aortic root replacement (#30 Hemashield [place]).
Data Reviewed
-
EKG: Tracing Personally Visualized and interpreted (Vpaced)
Radiology: Report Reviewed by me (CXR: Hyperinflated lungs suggesting emphysema. The lungs appear clear of consolidation with no evidence of pneumonia. Cardiac silhouette and vascular markings are within normal limits with no evidence for pulmonary
edema)
Medical Tests (Nuc Med, Echo etc): Report Reviewed by me (echo and cath as noted)
Labs: Labs Reviewed by me
[2024-03-20] MEDS: KCL PO (08:17)
[2024-03-20] MEDS: COREG PO ×2 (08:17→18:03)
[2024-03-20] MEDS: NEURONTIN 300 MG PO ×2 (09:01→19:50)
[2024-03-20] MEDS: LOW STRENGTH ASPIRIN 81 MG PO (09:01)
[2024-03-20] MEDS: PROTONIX 40 MG PO ×2 (09:01→19:50)
[2024-03-20 09:29] LABS: APTT > 200.0 Sec (23.4-35.0)
--- NOTE | 2024-03-20 10:46 | W.PN.HOSP.TC ---
Addendum entered and electronically signed by Blanche Carrillo DO 03/20/24 11:31:
Spoke to Cards-given high risk for dissection, Cards rec is for CT w IV contrast to eval for dissection, even in light of creatinine elevation, due to high risk of mortality if this is a dissection.
Cards believes this is less likely related to an acute WA given their eval of the echo. Also high risk to proceed with cath if this is a dissection.
Original Note:
Today's Communication/Plan
-
ACS/Back pain is persistent feels like a 'Jolt'
-cont NTG gtt, hep gtt
-Cards consult appreciated- they are re-evaluating pt now re: possible cardiac cath
-keep NPO for now pending Cards recs
-Trop up to 0.040 from 0.037 - repeat serial trop pending
-Lasix IV am dose was held
-Repeat EKG today is V-paced with PVCs.
- Pain improved with NTG but not yet fully resolved. IV Morphine x 1 this morning pain 1-2/10 post morphine
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
-discuss possible US aorta w Cardiology
Assessment / Plan
Assessment / Plan
A/P: 78 y/o male (cardiology patient of Dr. Snow) with HFrEF EF 30%, CAD with [place]/PCI 2004 then CABG 2017, bicuspid aortic valve with severe and dilated aortic root (s/p CABG and bio AVR and ascending aortic tube graft replacement 2017),
former tobacco use, right upper lobectomy for lung cancer 2010, CKD, COPD, ICD in place, and PAF who presents to ED complaining of back pain since this evening. Concern is for ACS in setting of aortic graft, pain is persistent. Seen by Cards
this am.
ECHO 03/20:
CONCLUSIONS
Asymmetric septal hypertrophy. Severely reduced left ventricular systolic
function. Left ventricular ejection fraction is 30-35%. Global hypokinesis with
akinesis of the basal inferior wall.
Mitral valve opens normally. Thickened mitral valve leaflets with mild mitral
regurgitation.
Normally functioning bioprosthetic aortic valve with mean gradients across the
aortic valve of 5 mmHg.
Moderate tricuspid regurgitation. Estimated pulmonary artery pressure of 38
mmHg.
The ascending aorta and aortic arch are of normal size.
Compared to the previous echo 12/09/23, there is no significant change.
Upper Back Pain
ACS
ASCVD
- Admit for further evaluation and treatment.
- Patient with pain similar to prior WA, troponin mildly elevated and has been negative in the past despite CKD.
-Trop up to 0.040 from 0.037 - repeat serial trop
-Repeat EKG today is V-paced with PVCs.
- Pain improved with NTG but not yet fully resolved. IV Morphine x 1 this morning pain 02/19 post morphine
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
- Titrate NTG infusion for pain control. Add morphine as needed.
- Continue IV heparin as per Cardiology recs.
- Continue ASA, beta-jade, statin, etc.
- Cardiology evaluation for additional recommendations +/- ischemic evaluation appreciated.
- Follow for any new / worsening symptoms.
Chronic HFrEF
- LVEF on most recent Echo was 30-35%. (11/2023)
- Recent changes to diuretic regimen without significant weight loss / improvement in dyspnea.
- Holding IV Lasix am dose per Cards rec
- Follow I/Os, daily weights, etc.
- Cardiology evaluation for additional recommendations and closely monitor in the IVU
Paroxysmal A-Fib
- Stable. Currently nearly 100% V-paced.
- Continue beta blockade.
- Pradaxa on hold while on IV heparin.
Benign Hypertension
- Stable. Continue home med regimen with holding parameters.
CKD IV
- Stable. Renal function is at / near known baseline.
- Avoid hypotension.
- Follow for changes in renal function.
Anemia of CKD
- Hgb fairly stable compared to prior baseline / trends.
- No recent blood loss / etc.
- Follow for changes.
COPD without Acute Exacerbation
- Stable. No wheezing on exam.
- Inhaled medications PRN.
DVT Prophylaxis: On IV heparin
Code Status: Full
Anticipated Discharge: > 48 hours
Subjective/Interval History
-
Date of Service: March 20, 2024
The patient has persistent back pain -had IV Morphine x 1 this am, pain went to a , and is back again, it is upper mid back, feels like a 'jolt,' is intermittent in nature, and feels like it did when you had his prior WA.
No n/v, no fever, no diarrhea, no abdominal pain.
Cardiology saw pt this am, and they were called again re: back pain
Objective Data
-
Labs:
Laboratory Results
03/20/24 03/20/24 03/20/24
00:48 01:40 07:37
WBC 8.4
Hgb 11.8 L
Hct 36.0 L
Plt Count 229
APTT 52.8 H > 200.0 H*
Sodium 136
Potassium 4.0
Chloride 103
Carbon Dioxide 29
BUN 26 H
Creatinine 2.4 H
Glucose 107 H
Calcium 9.8
Total Bilirubin 0.7
AST 14 L
ALT 12
Alkaline Phosphatase 132 H
Vital Signs:
Vital Signs
Temp Pulse Resp BP Pulse Ox
97.6 F 74 20 106/92 96
03/20/24 06:34 03/20/24 10:15 03/20/24 06:34 03/20/24 10:01 03/20/24 07:50
Review of Systems
-
History Source: Patient
All other systems: Reviewed and negative (as per subjective)
Physical Exam
-
General: Well Developed, Well Nourished and Appears in Distress (due to back pain)
HEENT: Normocephalic, Atraumatic and Moist Mucous Membranes
Cardiac: Regular Rhythm and S1/S2
GI: Soft, Nontender, Nondistended and Normal Bowel Sounds
Musculoskeletal: No Clubbing, No Cyanosis and No Edema
Neuro: AO x 3 and No Motor Deficits
Psych: Calm
Data Reviewed
-
Ultrasound: Other (CONCLUSIONS Asymmetric septal hypertrophy. Severely reduced left ventricular systolic function. Left ventricular ejection fraction is 30-35%. Global hypokinesis with akinesis of the basal inferior wall. Mitral valve opens
normally. Thickened mitral valve leaflets with mild mitral regurgitat)
Medical Tests (Nuc Med, Echo etc): Image personally visualized and interpreted and Report Reviewed by me (EKG PVCs, V-paced)
Labs: Labs Reviewed by me
--- NOTE | 2024-03-20 12:03 | W.PN.UPDATE ---
Update Note
Progress Note Update
Patient's pain becoming severe now and we will have to obtain CT chest with IV contrast. Patient does have CKD with elevated creatinine.
We tried to avoid CT with contrast previously and obtained urgent echo this a.m. but no diagnostic information is available.
Will proceed with CT chest
Risks involved with IV contrast was discussed with the patient and the family/.
[2024-03-20 13:16] LABS: TSH 2.88 uIU/ml (0.47-4.68)
[2024-03-20] MEDS: TYLENOL 650 MG PO (14:06)
[2024-03-20] MEDS: NSS 500 IV (14:09)
[2024-03-20 14:36] LABS: Troponin I 0.033 ng/ml
--- NOTE | 2024-03-20 15:05 | PTCARENOTE ---
03/20/24 0740 Upon AM assessment, Pt still complaining of mid scapular pain, No radiation, denies any shortness of breath. Pt on 2L NC, IV Nitroglycerin at 20 mcg/min & IV Heparin at 10 ml/hr infusing. Attending & Cardiology made aware, EKG and 2mg IV
Morphine given as ordered. Cardiology at bedside, pt assessed- Echo ordered stat. Pt's vitals remained stable SBP 95-102. AM Lasix and Coreg held. Pt resting comfortably in bed.
[2024-03-20 17:58] LABS: APTT 142.2 Sec (23.4-35.0)
--- NOTE | 2024-03-20 18:18 | PTCARENOTE ---
03/20/24 1800 Pt's 6pm SBP 86- Coreg held and Nitroglycerin weaned down to 10 mcg/min per Md. Pt asleep for assessment. Pt with no complaints. Heparin drip placed on hold for one hour due to PTT result of 142.2.
[2024-03-20] MEDS: KCL 20 MEQ PO (19:50)
--- NOTE | 2024-03-20 20:44 | PTCARENOTE ---
pt received at change of shift, pt seen and assessed in room. pt AOx3, tele reading vpaced. pt stating he has 4/10 scapular pain at this time. heparin gtt running at 600units/hr next PTT is ordered for 1am. nitro gtt running at 10mcg/min, titrating
per protocol. this RN discussed POC with the patient, patient verbalizes understanding. call erazo within reach. continuing to monitor at this time.
[2024-03-20] MEDS: LIPITOR 40 MG PO (22:35)
[2024-03-21] VITALS (16 sets, daily range): BP systolic 101–133; BP diastolic 61–92; BMI 26.2
[2024-03-21 01:42] LABS: APTT 75.6 Sec (23.4-35.0)
[2024-03-21 01:55] LABS: Troponin I 0.032 ng/ml
[2024-03-21] MEDS: TYLENOL 650 MG PO ×3 (04:13→22:59)
[2024-03-21] MEDS: HEPARIN 25000 UNITS/250 ML IV (04:13)
[2024-03-21] MEDS: COREG 6.25 MG PO ×2 (05:26→18:24)
[2024-03-21] MEDS: NEURONTIN 300 MG PO ×2 (08:14→19:18)
[2024-03-21] MEDS: LOW STRENGTH ASPIRIN 81 MG PO (08:14)
[2024-03-21] MEDS: PROTONIX 40 MG PO ×2 (08:15→19:18)
[2024-03-21 08:32] LABS: Blood Urea Nitrogen 23 mg/dl (9-20); Calcium 9.8 mg/dl (8.4-10.2); Carbon Dioxide 27 mmol/L (22-30); Chloride 106 mmol/L (98-107); Estimated Creatinine Clearance 32 ml/min; Glucose 103 mg/dl (70-99); Potassium 4.5 mmol/L (3.5-5.1); Sodium 135 mmol/L (135-145); eGFR 31.82
[2024-03-21 08:33] LABS: APTT 69.5 Sec (23.4-35.0)
--- NOTE | 2024-03-21 10:10 | W.PN.CD ---
Today's Communication / Plan
-
-Continue nitro drip
-Discontinue heparin and use subcu heparin.
-N.p.o. after midnight for possible cath in a.m.
Impression / Plan
-
ACS:
-this diagnosis is threat to life
-Echo 03/20/2024 shows no wall motion abnormalities. With history of ascending aortic graft, the CT scan is stable with no evidence of aortic dissection, intramural hematoma or any aneurysm.
-Chest pain is better.
-continue IV nitro which require intensive monitoring
-We will discontinue heparin at this time.Will continue subcu every 8 hours
-continue ASA, statin, and BB
-N.p.o. after midnight for possible cardiac cath in a.m.
CAD with hx CABG:
-last cath as below
-w/u as above
-ASA, statin, BB
-With CKD, Lasix was held and IV fluid was given. May need more contrast in a.m. for possible cardiac catheterization
Vfvzm-ah-czxhpgt HFrEF:
-weight has been up and OP diuresis has been unsuccessful
-lungs are clear and no edema
-can work on diuresis once above is sorted out. Hold this AM's dose with borderline BP and poss need for cath.
-of note on [facility] 03/21/23 dry weight 171 lbs. Currently 201.
PAF:
-stable
-continue BB as BP will tolerate
-on Pradaxa as OP, currently holding with heparin on board
CKD:
-Status post IV contrast with CT scan.
-Creatinine is stable. Monitor
COPD:
-on O2 by NC
-not wheezing
-no longer smoker
Hx Bio AVR:
-updating echo
-was stable on most recent echo as below
ICD in place:
-follow tele
Data:
Echo 12/09/23: EF 30-35%. Asymmetric septal hypertrophy (IVS 1.5 cm, LVPW 1.1 cm). Stage II diastolic dysfunction. Normally functioning bioprosthetic aortic valve with peak/mean gradients across the aortic valve 18/9 mmHg. Mild/moderate tricuspid
regurgitation. Moderately elevated PASP. Pulmonary artery pressure of 46 mmHg.
Cath 10/07/22: Right dominant circulation with an 80% lesion in the mid LAD and a chronic total occlusion of the mid RCA all the way to the bifurcation of the RPDA/RPL and a 30-40% mid RPDA lesion, status post prior two-vessel bypass (patent LOGAN to
mid LAD, patent SVG to mid RPDA backfilling the RPL). Prior aortic valve replacement (#27 Braden magna 2800), well-seated, functioning normally. Prior aortic root replacement (#30 Hemashield [place]).
Physical Exam
Vital Signs/Labs
Vital Signs
Temp Pulse Resp BP Pulse Ox
98.3 F 73 20 101/61 96
03/21/24 07:20 03/21/24 09:45 03/21/24 07:20 03/21/24 07:21 03/21/24 07:20
03/20/24 03/21/24 03/22/24
06:59 06:59 06:59
Actual Weight 91.5 kg 87.6 kg
03/20/24 00:48
03/21/24 08:12
APTT 69.5 Sec (23.4-35.0) H 03/21/24 08:12
TSH 2.88 uIU/ml (0.47-4.68) 03/20/24 00:48
03/20/24
00:48
Ujq-I-Xumcbatxhcn Pept 2710
LAB Results
03/20/24 03/20/24 03/20/24
00:48 07:37 12:31
Troponin I 0.037 H* 0.040 H* Cancelled
03/20/24 03/20/24 03/20/24
14:02 18:31 18:45
Troponin I 0.033 Cancelled Cancelled
03/20/24 03/21/24
20:00 01:19
Troponin I Cancelled 0.032
Physical Exam
Constitutional: No acute distress and Comfortable
EENT: Anicteric and Moist mucous membranes
Cardiovascular: Rhythm & rate is regular, Pedal edema is absent and JVD pressure is normal
Respiratory: Respiratory effort normal and Lungs clear to auscul.
GI: Soft, Non tender and Normal bowel sounds
Neuro/Psych: Alert, Oriented and AO x 3
Data Reviewed
-
Date of Service: March 21, 2024
Medical Decision Making: Reviewed Test Results, Test Interpretation and Review of Case with other Provider
EKG: Tracing Personally Visualized and interpreted
Echo: Tracing Personally Visualized and interpreted and Report Reviewed by me
X-Ray/CT/US/MRI/NUC/PET: Image Personally Visualized and interpreted
Labs: Labs Reviewed by me
Old Records: Reviewed
--- NOTE | 2024-03-21 10:51 | W.PN.HOSP.TC ---
Today's Communication/Plan
-
Pulmonary consult
Assessment / Plan
Assessment / Plan
Historical summary:
78 y/o male (cardiology patient of Dr. Snow) with HFrEF EF 30%, CAD with [place]/PCI 2004 then CABG 2017, bicuspid aortic valve with severe and dilated aortic root (s/p CABG and bio AVR and ascending aortic tube graft replacement 2017), former
tobacco use, right upper lobectomy for lung cancer 2010, CKD, COPD, ICD in place, and PAF who presents to ED complaining of back pain since this evening. Concern is for ACS in setting of aortic graft, pain is persistent.
ECHO 03/20:
Asymmetric septal hypertrophy. Severely reduced left ventricular systolic function.
Left ventricular ejection fraction is 30-35%.
Global hypokinesis with akinesis of the basal inferior wall.
Mitral valve opens normally. Thickened mitral valve leaflets with mild mitral regurgitation.
Normally functioning bioprosthetic aortic valve with mean gradients across the aortic valve of 5 mmHg.
Moderate tricuspid regurgitation. Estimated pulmonary artery pressure of 38 mmHg.
The ascending aorta and aortic arch are of normal size.
CT-A:
No CTA evidence for an aortic dissection, intramural hematoma, or aneurysm.
Severe emphysema.
Previous CABG and placement of an aortic valve prosthesis left cardiac conduction device.
Compared to the previous echo 12/09/23, there is no significant change.
1. Upper Back Pain, concern for ACS, ASCVD
- Patient with pain similar to prior [place], troponin mildly elevated and has been negative in the past despite CKD.
-Trop up to 0.040 from 0.037 Then dwon to 0.033 and then 0.032
-Repeat is V-paced with PVCs.
- Pain improved with NTG but not yet fully resolved. IV Morphine given as needed.
- Titrate NTG infusion for pain control. morphine as needed.
- Continue IV heparin as per Cardiology recs.
- Continue ASA, beta-jade, statin, etc.
- Follow for any new / worsening symptoms.
- Pulmonary consult to rule out a lung source for the pain given the sever emphysema
2. Chronic HFrEF
- LVEF on most recent Echo was 30-35%. (11/2023)
- Recent changes to diuretic regimen without significant weight loss / improvement in dyspnea.
- Holding IV Lasix am per Cards rec
- Follow I/Os, daily weights, etc.
- Cardiology evaluation for additional recommendations and closely monitor in the IVU
3. Paroxysmal A-Fib
- Stable. Currently nearly 100% V-paced.
- Continue beta blockade.
- Pradaxa on hold while on IV heparin.
4. Benign Hypertension
- Stable. Continue home med regimen with holding parameters.
5. CKD IV
- Stable. Renal function is at / near known baseline.
- Avoid hypotension.
- Follow for changes in renal function.
6. Anemia of CKD
- Hgb fairly stable compared to prior baseline / trends.
- No recent blood loss / etc.
- Follow for changes.
7. COPD without Acute Exacerbation
- Stable. but not sure if pain is related to this.
Pulmonary consult
- Inhaled medications PRN.
DVT Prophylaxis: On IV heparin
Code Status: Full
Anticipated Discharge: > 48 hours
Subjective/Interval History
-
Date of Service: March 21, 2024
Continues to have on/off 11/19 pain on his upper back.
Objective Data
-
Labs:
Laboratory Results
03/21/24 03/21/24 03/21/24
01:19 08:12 14:40
APTT 75.6 H 69.5 H Pending
Sodium 135
Potassium 4.5
Chloride 106
Carbon Dioxide 27
BUN 23 H
Creatinine 2.1 H
Glucose 103 H
Calcium 9.8
Vital Signs:
Vital Signs
Temp Pulse Resp BP Pulse Ox
98.3 F 73 20 101/61 96
03/21/24 07:20 03/21/24 09:45 03/21/24 07:20 03/21/24 07:21 03/21/24 07:20
I&O
03/20/24 03/21/24 03/22/24
06:59 06:59 06:59
Intake Total 200 / 200
Output Total 100 / 100
Balance 100 / 100
Review of Systems
-
History Source: Patient
All other systems: Reviewed and negative
Musculoskeletal: Reports Other (11/19 upper back pain)
Physical Exam
-
General: Well Developed, Well Nourished, No Apparent Distress and Appears in Distress
HEENT: Normocephalic, Atraumatic, Nose Appears Normal and Ears Appear Normal
Respiratory: Crackles and Decreased Breath Sounds
Cardiac: S1/S2 and Irregular Rhythm
GI: Soft, Nontender and Nondistended
Musculoskeletal: No Clubbing, No Cyanosis and No Edema
Skin: Warm and Dry
Neuro: Awake, Alert, Oriented and AO x 3
Psych: Calm
Data Reviewed
-
Labs: Labs Reviewed by me
[2024-03-21] MEDS: KCL PO (11:16)
--- NOTE | 2024-03-21 11:49 | PTCARENOTE ---
03/21/24 Received patient in bed resting comfortably. IV Nitro infusing at 10mcg/min. IV Heparin infusing at 6 ml/hr. Pt on brass pourer reading V-paced, BP stable and on 2L NC 95%. Pt complains of mid scapular pain on/off. Pt denies any h/a,
dizziness, lightheadedness. Will monitor throughout shift.
--- NOTE | 2024-03-21 13:57 | CHAP ---
Mr. Davison is accepting of his situation and grateful for the care he is receiving. Declined prayer, graciously. Emotional support provided.
[2024-03-21] MEDS: HEPARIN 5000 UNITS SC ×2 (15:43→23:00)
--- NOTE | 2024-03-21 17:40 | CON.INTV ---
Consultation
Consultation Request
Date/Time Consultation Requested: 03/21/2024
Date/Time Consultation Performed: 03/21/2024
Requesting Provider: Dr. Rodarte
Performing Provider: Dr. Lloyd esqueda
Reason for Consultation: Dyspnea/atypical chest pain
Medical History
-
Chief Complaint: dyspnea
History of Present Illness:
78-year-old male with history of heart failure with preserved ejection fraction 30%, coronary artery disease with PCI 2004 then coronary artery bypass 2017, bicuspid aortic valve with severe AAS and dilated aortic root (status post CABG and
bioprosthetic AVR and ascending aortic tube graft replacement in 2018), former tobacco user, right upper lobectomy for lung cancer 2010, chronic kidney disease, COPD, ICD in place, paroxysmal atrial fibrillation came to the hospital complaining of
back pain since the evening of admission 03/20/2024.
The pain is the posterior chest. Not associated with any other symptoms other than shortness of breath.
Denies cough, wheezing, phlegm production or hemoptysis.
Patient states that he was well until Friday. Pain can get worse with deep inspiration but sometimes could be unpredictable.
It denies any rash or fevers.
Denies any trauma
-
Cardiology evaluated patient: So far no evidence for acute ischemia.
Echocardiogram without acute abnormalities.
CT angiogram of the chest 03/20/2024: There is no CT evidence for aortic dissection, intramural hematoma or aneurysm. Severe emphysema. Previous CABG and placement of aortic valve prosthetic left cardiac conduction device.
-
We were consulted on 03/21/2024 for possible ? Pulmonary etiology for pain.
Past Medical History
Past Medical History: Other (See assessment and plan)
Social History
Tobacco: Former Smoker (More than 82-txmt-yggn history.)
Alcohol: None
Drug: None
Personal:
Living: With Family
Employment: Retired
Family History
Family History: Reviewed & Not Pertinent
Allergies / Home Medications
Allergies
Allergy/AdvReac Type Severity Reaction Status Date / Time
codeine [Codeine] Allergy nausea Verified 03/20/24 00:38
vomiting
Penicillins Allergy Hives, Verified 03/20/24 00:38
swelling,
tolerated
ceftriaxone
Feb 2020
Home Medications
�Medication �Instructions �Recorded �Confirmed �Last Taken �Type
atorvastatin 40 mg tablet 40 mg PO HS High cholesterol 04/25/22 03/20/24 12/07/23 History
carvedilol 6.25 mg tablet (Coreg) 6.25 mg PO Q12H blood pressure / 03/14/23 03/20/24 12/08/23 History
heart condition
gabapentin 300 mg capsule 600 mg PO HS Pain 03/14/23 03/20/24 12/07/23 History
magnesium oxide 400 mg PO Q48H Electrolyte 03/14/23 03/20/24 12/08/23 History
Repletion
acetaminophen 500 mg tablet 1,000 mg PO Q6HPRN PRN mild pain 04/01/23 03/20/24 12/08/23 History
(Tylenol Extra Strength)
pyridoxine (vitamin B6) 50 mg 50 mg PO DAILY Supplement 04/01/23 03/20/24 12/08/23 History
tablet (Vitamin B-6)
albuterol sulfate 2.5 mg/3 mL 2.5 mg inhalation R Q48H 12/08/23 03/20/24 12/07/23 History
(0.083 %) solution for nebulization Lung/Breathing Issues
ascorbic acid (vitamin C) 500 mg 500 mg PO DAILY Supplement 12/08/23 03/20/24 12/08/23 History
tablet (Vitamin C)
budesonide 0.5 mg/2 mL suspension 0.5 mg inhalation R Q48H 12/08/23 03/20/24 12/07/23 History
for nebulization Lung/Breathing Issues
fluticasone fur. 200 mcg-umeclid 1 inh inhalation R Q48H 12/08/23 03/20/24 12/08/23 History
62.5 mcg-vilant 25 mcg Lung/Breathing Issues
inhalat.powder (Trelegy Ellipta)
gabapentin 300 mg capsule 300 mg PO DAILY pain 12/08/23 03/20/24 12/08/23 History
ipratropium bromide 0.02 % 2.5 ml inhalation R Q48H Allergies 12/08/23 03/20/24 12/07/23 History
solution for inhalation
dabigatran etexilate 75 mg capsule 75 mg PO BID Blood clot 12/16/23 03/20/24 Unknown Rx
(Pradaxa) prevention/tx 30 days #30 caps
pantoprazole 40 mg tablet,delayed 40 mg PO BID Gastrointestinal 12/16/23 03/20/24 12/08/23 Rx
release issue #60 tabs
potassium chloride 20 mEq 20 meq PO BID Electrolyte 12/16/23 03/20/24 12/08/23 Rx
tablet,extended release Repletion 30 days #60 tabs
bumetanide 1 mg tablet 3 mg PO BID Fluid 03/20/24 03/20/24 Unknown History
retention/Swelling
Review of Systems
-
History Source: Patient and Other
All other systems: Negative unless noted
Vitals / Labs / Diagnostic Testing
Vital Signs
Temp Pulse Resp BP Pulse Ox
98.0 F 67 20 106/64 96
03/21/24 15:40 03/21/24 16:15 03/21/24 15:40 03/21/24 15:42 03/21/24 15:40
Lab Data
03/20/24 00:48
03/21/24 08:12
Laboratory Results
03/20/24 03/21/24 03/21/24
17:36 01:19 08:12
APTT 142.2 H 75.6 H 69.5 H
Diagnostic Testing:
Assessment
-
78-year-old man with complex cardiac history and pulmonary history. Admitted complaining of upper back pain since Friday. Similar to when he presented with acute [place] per patient report. Cardiac evaluation so far negative including echocardiogram
and CT angiogram. We were consulted on 03/21/2024 for evaluation of pulmonary source.
Back pain/dyspnea-Unclear etiology. Possibly musculoskeletal.
CT angiogram of the chest 03/20/2024: Has emphysema without evidence of pneumonia, pneumothorax or bony abnormalities.
Emphysema/moderate COPD: FEV1 04/03/2023 2.33 L or 72% of predicted.
Not in acute exacerbation.
On trelegy
Conditions present prior admission:
History of COPD/Emphysema moderate-on Trelegy. Does not follow-up locally. Follows up with primary care.
Hypertension
Paroxysmal atrial fibrillation
Heart failure with preserved ejection fraction
Chronic kidney disease stage III
Lung cancer s/p resection in the distant past
Thyroid cancer
Left eye chronic blindness-childhood trauma
Status post CABG
Prior stents
ICD in place
Right upper lobe lobectomy
Partial thyroidectomy
Hernia repair
Laparoscopic bladder repair
Appendectomy
Echocardiogram 03/20/2024:Report reviewed,Showed asymmetric septal hypertrophy. Severely reduced left ventricular systolic function. Left ventricular ejection fraction 30 to 35%. Global hypokinesis with akinesis of the basal inferior wall. Mitral
valve opens normally. Normal functioning bioprosthetic aortic valve. Moderate TR. Symmetric pulmonary pressure 30 mmHg. Aortic size normal
Assessment and plan:
From the pulmonary perspective I do not see any reason for his back pain. It could be musculoskeletal.
Patient does have point tenderness to palpation on the left upper paraspinal area. No rash present.
No tenderness to palpation to the spine.
He is on room air
Clear lung exam
Not coughing
Able to speak in full sentences
Currently on nitroglycerin drip.
-
So far based on CAT scan there is no parenchymal abnormality other than emphysema. No evidence for pneumonia. No pneumothorax. No evidence for pleuritis. No significant bony abnormalities.
No rash on exam.
Patient does have degenerative changes of the spine this could be arthritis.
-
From the cardiac perspective acute coronary syndrome has been ruled out as well as dissection.
-
From my perspective he should continue on his inhalers
There is no indication for systemic corticosteroids.
-
Continue analgesia as you are doing.
-
Pulmonary will follow briefly.
He will benefit from pulmonary evaluation at some point in the outpatient setting.
No additional testing from my perspective.
[2024-03-21] MEDS: KCL 20 MEQ PO (19:18)
[2024-03-21] MEDS: FLUSH (NSS) 1 FLUSH IV (19:21)
--- NOTE | 2024-03-21 20:25 | PTCARENOTE ---
Rec'd pt at change of shift. Pt AAO*3, Vpaced on TELE monitor, and VSS. Pt complained of back pain, PRN tylenol given as ordered. Pt aware of NPO status at midnight and agreed to wait for staff assistance before ambulating. Nitro infusing at
10mcg/minute. Pt resting with call erazo in reach and plan of care ongoing. See mar and flowchart for complete pt care and assessment.
[2024-03-21] MEDS: LIPITOR 40 MG PO (22:59)
[2024-03-22] VITALS (15 sets, daily range): BP systolic 91–129; BP diastolic 57–96; BMI 26.7
[2024-03-22] MEDS: MORPHINE SULFATE 2 MG IV ×2 (04:10→23:12)
[2024-03-22 05:06] LABS: Hematocrit 33.2 % (39.0-52.0); Hemoglobin 10.9 g/dL (13.0-18.0); Mean Corp Hgb Conc. 32.8 g/dL (33.0-37.0); Mean Corpuscular Hgb 28.6 pg (27.0-31.0); Mean Corpuscular Volume 87.1 fL (80.0-94.0); Mean Platelet Volume 10.8 fL (7.4-10.4); Platelet Count 174 10^3/uL (130-400); Red Blood Cell Count 3.81 10^6/uL (4.70-6.10); Red Cell Dist. Width 14.8 % (11.5-14.5); White Blood Cell Count 6.7 10^3/uL (4.8-10.8)
[2024-03-22] MEDS: COREG 6.25 MG PO ×2 (05:08→18:40)
[2024-03-22 05:29] LABS: Blood Urea Nitrogen 21 mg/dl (9-20); Carbon Dioxide 26 mmol/L (22-30); Chloride 104 mmol/L (98-107); Estimated Creatinine Clearance 31 ml/min; Glucose 99 mg/dl (70-99); Potassium 4.4 mmol/L (3.5-5.1); Sodium 136 mmol/L (135-145); eGFR 30.09
--- NOTE | 2024-03-22 07:30 | PTCARENOTE ---
Rec'd pt at handoff. Nitro gtt infusing at 10 mcg/min. Pt Pt complains of mid scapular pain on/off that is acceptable to his level. Pt aware of NPO status for possible cath today. Tele- SR w/ occ. V-pacing. Currently in bed; call kacey w/in reach.
[2024-03-22] MEDS: KCL 20 MEQ PO ×2 (07:42→21:14)
[2024-03-22] MEDS: LOW STRENGTH ASPIRIN 81 MG PO (07:42)
[2024-03-22] MEDS: NEURONTIN 300 MG PO ×2 (07:42→21:13)
[2024-03-22] MEDS: PROTONIX 40 MG PO ×2 (07:42→21:14)
[2024-03-22] MEDS: HEPARIN 5000 UNITS SC ×2 (07:43→23:13)
--- NOTE | 2024-03-22 09:19 | W.PN.PUL3 ---
Today's Communication / Plan
-
Stable on RA, no acute issues
Back pain is decreasing and likely MSK in nature as it was reproducible on exam with palpation
CTA and cardiac w/u negative thus far
No further recs from our perspective, has COPD/emphysema, managed by primary
Can follow up with us as OP if needed, info left in chart
Otherwise if no further w/u is indicated, can d/c per primary team
OP ortho FU can be considered for MSK back pain
Reviewed with patient and his at bedside
We will sign off at this time, pls call with questions
Assessment
-
78-year-old man with complex cardiac history and pulmonary history. Admitted complaining of upper back pain since Friday. Similar to when he presented with acute [place] per patient report. Cardiac evaluation so far negative including echocardiogram
and CT angiogram. We were consulted on 03/21/2024 for evaluation of pulmonary source.
Back pain/dyspnea-Unclear etiology. Possibly musculoskeletal.
CT angiogram of the chest 03/20/2024: Has emphysema without evidence of pneumonia, pneumothorax or bony abnormalities.
Emphysema/moderate COPD: FEV1 04/03/2023 2.33 L or 72% of predicted.
Not in acute exacerbation
Conditions present prior admission:
History of COPD/Emphysema moderate-on Trelegy as OP. Does not follow-up locally/Follows up with primary care.
Moderate obstruction on PFT 2023, severe diffusion impairment, no O2 at home
Hypertension
Paroxysmal atrial fibrillation
Heart failure with preserved ejection fraction
Chronic kidney disease stage III
Lung cancer s/p resection in the distant past
Thyroid cancer
Left eye chronic blindness-childhood trauma
Status post CABG
Prior stents
ICD in place
Right upper lobe lobectomy
Partial thyroidectomy
Hernia repair
Laparoscopic bladder repair
Appendectomy
Assessment and plan:
From the pulmonary perspective I do not see any reason for his back pain. It could be musculoskeletal.
Patient does have point tenderness to palpation on the left upper paraspinal area. No rash present.
No tenderness to palpation to the spine.
He is on room air
Clear lung exam
Not coughing
Able to speak in full sentences
Currently on nitroglycerin drip.
-
So far based on CAT scan there is no parenchymal abnormality other than emphysema. No evidence for pneumonia. No pneumothorax. No evidence for pleuritis. No significant bony abnormalities.
No rash on exam.
Patient does have degenerative changes of the spine this could be arthritis.
-
From the cardiac perspective acute coronary syndrome has been ruled out as well as dissection.
-
From my perspective he should continue on his inhalers
There is no indication for systemic corticosteroids.
-
Continue analgesia as you are doing.
-
Pulmonary will follow briefly.
He will benefit from pulmonary evaluation at some point in the outpatient setting.
No additional testing from my perspective.
Discharge planning per team
Diagnostic Data:
Echocardiogram 03/20/2024:Report reviewed,Showed asymmetric septal hypertrophy. Severely reduced left ventricular systolic function. Left ventricular ejection fraction 30 to 35%. Global hypokinesis with akinesis of the basal inferior wall. Mitral
valve opens normally. Normal functioning bioprosthetic aortic valve. Moderate TR. Symmetric pulmonary pressure 30 mmHg. Aortic size normal
CTA 03/20/24- No CTA evidence for an aortic dissection, intramural hematoma, or aneurysm. Severe emphysema.
Previous CABG and placement of an aortic valve prosthesis left cardiac conduction device.
PFT 06/06/17: FEV1 2.29L 69%, FVC 4.46L 98%, ratio 51. Post FEV1 2.75L 83% + BD-FEV1 response-20%; TLC 7.07L 96%, DLCO 38%
[place] 04/03/23: FEV1 2.17l 67%, post FEV1 2.33L 72%--moderate obstruction
6MWT 04/01/23: O2 mehnaz 89% at 5 mins, 4/10, RA, HR max 88, 96% on RA
Subjective Data
-
Date of Service:
Date of Service: March 22, 2024
Chief Complaint: Pulmonary Follow Up
Subjective:
No new complaints, back pain ongoing but better than on admission
Stable on RA
Family member at bedside
Objective Data
Data Reviewed
Vital Signs / I&O / Oxygen:
Vital Signs
Temp Pulse Resp BP Pulse Ox
97.7 F 68 16 91/57 93
03/22/24 07:05 03/22/24 07:05 03/22/24 07:05 03/22/24 07:05 03/22/24 07:05
Intake and Output
03/21/24 03/22/24 03/23/24
06:59 06:59 06:59
Intake Total 680 / 680
Output Total 850 / 850
Balance -170 / -170
SaO2 93
Nasal Cannula flow liters per 2
minute
Physical Exam
General: Comfortable and Other (NAD)
HEENT: Normocephalic and Moist Mucous Membranes
Cardiovascular: S1-S2 and Regular Rhythm
Respiratory: Clear and Non-Labored Respirations
GI: Soft, Non Distended and Non Tender
Neurology: Awake, Alert, Oriented and No Motor Deficits
Skin: Warm, Dry and Good Color
Labs/Micro/Reports
Lab Data
03/22/24 04:04
03/22/24 04:04
Laboratory Results
03/21/24
14:40
APTT Cancelled
[2024-03-22] MEDS: TYLENOL 650 MG PO (12:12)
--- NOTE | 2024-03-22 14:33 | CM ---
Chart reviewed. Patient is independent of ADLS, lives with his in a [address], total of 6 RALF, ambulates with 2 walking sticks. Patient is not current with VN, but has used [facility] in the past. Patient declines VN at present. Plan is for the
patient to return home. CM to follow
--- NOTE | 2024-03-22 16:15 | W.PN.HOSP.TC ---
Today's Communication/Plan
-
Assessment / Plan
Assessment / Plan
Gen-AAOx3, NAD
HEENT-NC, AT, anicteric, clear oral mm
Neck-supple
CV-reg, no M, +S1/S2
Lungs-clear B/L
Abd-soft, NT, ND
Musculoskeletal-no edema, no deformity, significant TTP intrascapular region
Skin-warm and dry
Neuro-grossly non-focal
Psych-calm, cooperative
Historical summary:
78 y/o male (cardiology patient of Dr. Snow) with HFrEF EF 30%, CAD with [place]/PCI 2004 then CABG 2017, bicuspid aortic valve with severe and dilated aortic root (s/p CABG and bio AVR and ascending aortic tube graft replacement 2017), former
tobacco use, right upper lobectomy for lung cancer 2010, CKD, COPD, ICD in place, and PAF who presents to ED complaining of back pain since this evening. Concern is for ACS in setting of aortic graft, pain is persistent.
ECHO 03/20:
Asymmetric septal hypertrophy. Severely reduced left ventricular systolic function.
Left ventricular ejection fraction is 30-35%.
Global hypokinesis with akinesis of the basal inferior wall.
Mitral valve opens normally. Thickened mitral valve leaflets with mild mitral regurgitation.
Normally functioning bioprosthetic aortic valve with mean gradients across the aortic valve of 5 mmHg.
Moderate tricuspid regurgitation. Estimated pulmonary artery pressure of 38 mmHg.
The ascending aorta and aortic arch are of normal size.
CT-A:
No CTA evidence for an aortic dissection, intramural hematoma, or aneurysm.
Severe emphysema.
Previous CABG and placement of an aortic valve prosthesis left cardiac conduction device.
Compared to the previous echo 12/09/23, there is no significant change.
1. Upper Back Pain, concern for ACS, ASCVD
- Patient with pain similar to prior [place], troponin mildly elevated and has been negative in the past despite CKD.
-Trop up to 0.040 from 0.037 Then down to 0.033 and then 0.032
-Repeat is V-paced with PVCs.
-Pain improved with NTG but not yet fully resolved. IV Morphine given as needed.
- Titrate NTG infusion for pain control. morphine as needed.
- Continue IV heparin as per Cardiology recs.
-Plan for cardiac cath today 03/22
- Continue ASA, beta-jade, statin, etc.
- Follow for any new / worsening symptoms.
-No apparent pulmonary etiology of presenting symptoms
2. Chronic HFrEF
- LVEF on most recent Echo was 30-35%. (11/2023)
- Recent changes to diuretic regimen without significant weight loss / improvement in dyspnea.
- Holding IV Lasix am per Cards rec
- Follow I/Os, daily weights, etc.
- further recommendations per cardiology
3. Paroxysmal A-Fib
- Stable. Currently nearly 100% V-paced.
- Continue beta blockade.
- Pradaxa on hold while on IV heparin.
4. Benign Hypertension
- Stable. Continue home med regimen with holding parameters.
5. CKD IV
- Stable. Renal function is at / near known baseline.
- Avoid hypotension.
- Follow for changes in renal function.
6. Anemia of CKD
- Hgb fairly stable compared to prior baseline / trends.
- No recent blood loss / etc.
- Follow for changes.
7. COPD without Acute Exacerbation
- Stable. but not sure if pain is related to this.
Pulmonary consult
- Inhaled medications PRN.
DVT Prophylaxis: On IV heparin
Code Status: Full
Anticipated Discharge: 24 - 48 hours
Subjective/Interval History
-
Date of Service: March 22, 2024
Patient was seen and examined at bedside this morning. He continues to have severe pain between his shoulder blades. He is awaiting cardiac cath today.
Objective Data
-
Labs:
Laboratory Results
03/22/24
04:04
WBC 6.7
Hgb 10.9 L
Hct 33.2 L
Plt Count 174 D
Sodium 136
Potassium 4.4
Chloride 104
Carbon Dioxide 26
BUN 21 H
Creatinine 2.2 H
Glucose 99
Calcium 10.0
Vital Signs:
Vital Signs
Temp Pulse Resp BP Pulse Ox
97.8 F 60 18 114/77 94
03/22/24 10:28 03/22/24 11:00 03/22/24 10:28 03/22/24 10:28 03/22/24 10:28
I&O
03/21/24 03/22/24 03/23/24
06:59 06:59 06:59
Intake Total 680 / 680
Output Total 850 / 850 550 / 550
Balance -170 / -170 -550 / -550
Review of Systems
-
History Source: Patient
All other systems: Reviewed and negative
Musculoskeletal: Reports Muscle Pain (Interscapular pain)
Physical Exam
-
General: No Apparent Distress
--- NOTE | 2024-03-22 16:30 | ITS.CL.CATH ---
[employer] - Catheterization
Cardiac Catheterization
Procedure Report:
CARDIAC CATHETERIZATION REPORT
Date of Procedure: 03/22/2024
Referring: Norberto Engle M.D.
Indication: Abnormal troponin, known coronary artery disease, chest pain.
PROCEDURE:
1. Right heart catheterization.
2. Coronary angiography.
3. Bypass angiography.
4. Left heart catheterization.
A total of 0 minutes of procedural/moderate sedation was utilized. An independent medical service technician was present to assist with and help manage the patient's level of consciousness and physiologic status.
ACCESS:
1. 6 [place] left radial artery using a modified Seldinger technique.
2. 5 [place] left antecubital vein using a previously placed IV.
CATHETERS:
1. 5 [place]ran balloon.
2. 5 [place]ran HOLGER.
3. 5 [place] JR4.
4. 5 [place] JL 4.
5. 5 [place] AR mod.
HEMODYNAMIC DATA
Weight (kg): 88.9
AO (s/d/x, mmHg): 134/69/94
LV (s/x, mmHg): 137/20
PCWP (a/v/x, mmHg): 26/35/21
PA (s/d/x, mmHg): 60/24/36
RV (s/x, mmHg): 60/18
RA (a/v/x, mmHg): 25/23/19
SVC SvO2 (%): 49.5
IVC SvO2 (%): Not obtained.
RA SvO2 (%): Not obtained.
RV SvO2 (%): Not obtained.
PA SvO2 (%): 53.4
SaO2 (%): 90.2
Hbg (g/dL): 10.9
ONUR
CO (L/min): 4.32
CI (L/min/m2): 2.04
Thermodilution
CO (L/min): Not performed.
CI (L/min/m2): Not performed.
TPG (mmHg): 15
PVR (Flowers Units): 3.47
SVR (dynes*seconds*cm^-5): 1389
AVO2 Diff (Volume %): 5.45
AV gradient (x, mmHg): 8.48
AV area (cm2): 1.74
MV gradient (x, mmHg): Not performed.
MV area (cm2): Not performed.
LEFT VENTRICULOGRAPHY: Not performed. A bioprosthetic surgical aortic valve replacement is observed. Single-chamber ICD is observed.
AORTOGRAPHY: Not performed.
CORONARY ANGIOGRAPHY
Dominance: Right.
Left Main: Large size, bifurcating vessel. There is no coronary artery disease.
LAD: Large size vessel giving rise to 1 large diagonal. The diagonal subsequently splits into an upper and lower branch and supplies a large portion of the anterolateral wall. There is an 80% lesion in the proximal/mid LAD immediately distal to
the origin of the diagonal, followed by a 60% lesion at an area of mid LAD tortuosity. The distal LAD is supplied by patent LOGAN graft.
Ramus: Congenitally absent.
Circumflex: Normal size, nondominant vessel giving rise to 3 obtuse marginals. OM1 and OM 2 are relatively small vessels. OM 3 supplies a significant portion of the lateral wall. There are minor luminal irregularities.
RCA: Large size, dominant vessel with a large posterolateral branch supplying the majority of the inferolateral wall. The vessel is chronically totally occluded from its proximal margin up into the bifurcation of the RPDA and RPL. The RPDA/RPL
is supplied by a patent vein graft.
BYPASS GRAFT ANGIOGRAPHY
LOGAN to LAD: Normal size graft with end-to-side anastomosis to the mid LAD. There is no evidence of stenosis or graft degeneration.
SVG to RPDA: Normal size graft with end-to-side anastomosis to the mid RPDA. There is no evidence of stenosis or graft degeneration.
INTERVENTIONS
None.
Closure Device: Vascular band for the right radial artery, manual pressure for the right antecubital vein.
Radiation dose (mGy): 794.08
DAP (cm2.Gy): 52.4085
Fluoroscopy time (minutes): 7.5
CONCLUSIONS:
1. Right dominant circulation with an 80% lesion in the mid LAD followed by a 60% lesion in the more distal mid LAD and a chronic total occlusion of the proximal right coronary artery through the bifurcation, status post prior bypass (patent LOGAN
to mid LAD, patent SVG to RPDA, backfilling the large RPL), grossly unchanged from prior cardiac catheterization (09/17/2022).
2. Status post bioprosthetic aortic valve replacement without significant gradient on pullback.
3. Moderately elevated filling pressures (LVEDP = 20 mmHg, PCWP = 21 mmHg at 88.9 kg), likely appropriate given his known degree of LV dysfunction (LVEF 30-35%).
4. 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
5. Single-chamber ICD is observed.
RECOMMENDATIONS:
1. Expectant management after cardiac catheterization via left radial approach.
2. Limited weight bearing on the left wrist for one week.
3. No obvious source of chest pain given stable coronary anatomy. This does not appear to be acute coronary syndrome.
Copy to: Norberto Engle M.D., Patric Riley M.D., Torrey Snow M.D.
Anjel Jeffers, DO, FACC, FACP
[2024-03-22] MEDS: HEPARIN SC (21:12)
[2024-03-22] MEDS: LIPITOR 40 MG PO (21:14)
--- NOTE | 2024-03-22 22:05 | PTCARENOTE ---
Rec'd pt at change of shift. Pt AAO*3, SR with occassional Vpacing, and VSS. Pt reports upper back pain, PRN morphine given as ordered. Pt with L radial and L brachial CDI. Pt agreed to left upper extremity restriction. Pt resting with call
erazo in reach and plan of care ongoing. See mar for full pt assessment and care.
[2024-03-23 03:17] VITALS: BP 138/77
[2024-03-23 03:41] VITALS: BP 138/77
[2024-03-23 03:42] VITALS: BMI 26.4
[2024-03-23 05:28] VITALS: BP 126/87
[2024-03-23] MEDS: COREG 6.25 MG PO (05:28)
[2024-03-23 06:02] LABS: % Basophils 1.2 % (0-2); % Eosinophils 3.7 % (0-6); % Immature Granulocytes 0.4 % (0-0.5); % Lymphocytes 14.1 % (20.5-51.1); % Monocytes 13.9 % (1.7-9.3); % Neutrophils 66.7 % (42.2-75.2); Absolute Basophils 0.1 10^3/uL (0-0.2); Absolute Eosinophils 0.3 10^3/uL (0-0.7); Absolute Lymphocytes 0.9 10^3/uL (1.2-3.4); Absolute Monocytes 0.9 10^3/uL (0.1-0.6); Absolute Neutrophils 4.5 10^3/uL (1.4-6.5); Hematocrit 37.2 % (39.0-52.0); Hemoglobin 11.8 g/dL (13.0-18.0); Mean Corp Hgb Conc. 31.7 g/dL (33.0-37.0); Mean Corpuscular Hgb 28.2 pg (27.0-31.0); Mean Platelet Volume 10.7 fL (7.4-10.4); Nucleated Red Blood Cells % 0 % (-); Platelet Count 193 10^3/uL (130-400); Red Blood Cell Count 4.18 10^6/uL (4.70-6.10); Red Cell Dist. Width 15.1 % (11.5-14.5); White Blood Cell Count 6.7 10^3/uL (4.8-10.8)
[2024-03-23 06:31] LABS: Blood Urea Nitrogen 21 mg/dl (9-20); Calcium 10.1 mg/dl (8.4-10.2); Carbon Dioxide 24 mmol/L (22-30); Chloride 107 mmol/L (98-107); Estimated Creatinine Clearance 31 ml/min; Glucose 100 mg/dl (70-99); Magnesium 2.4 mg/dl (1.6-2.3); Phosphorus 2.7 mg/dl (2.5-4.5); Potassium 5.1 mmol/L (3.5-5.1); Sodium 137 mmol/L (135-145); eGFR 30.09
[2024-03-23 07:23] VITALS: BP 150/67
--- NOTE | 2024-03-23 07:26 | W.PN.CD ---
Today's Communication / Plan
-
No cardiac source of back/shoulder pain.
Troponin elevation is non-MO related.
Patient remains on carvedilol for GDMT/OMT, limited by renal function.
Resume dabigatran.
Thank you for this interesting consult. Signing off. Please call with questions.
Impression / Plan
-
Impression/Plan: 78 y/o male with known CAD s/p CABG (LOGAN to LAD, SVG to RPDA), COPD, ICMO s/p ICD/HFrEF, bicuspid AV with severe and dilated aortic root s/p SAVR/ and PAF admitted with shoulder/back pain and low level troponin elevation.
#Troponin elevation:
-Acute, non-MO troponin elevation.
-Echo (03/20/2024) shows no wall motion abnormalities.
-CTA negative for dissection.
-Cath shows no new CAD, patent grafts.
#Back/shoulder pain
-Acute, improving.
-Symptomatic management.
#CAD
-Chronic.
-S/P CABG (LOGAN to LAD, SVG to RPDA), patent on cardiac catheterization.
-OMT/secondary prevention (aspirin, carvedilol, atorvastatin).
#ICMO/Dtrce-tt-mbxsoed HFrEF
-Weight has been up and OP diuresis has been unsuccessful.
-LVEDP/PCWP = 20/21 mmHg on invasive evaluation. While this is moderately elevated, it is likely appropriate for an LVEF of 30-35%.
-Home diuretics = bumetanide 3 mg PO BID. D/C IV furosemide and restart home bumetanide.
-GDMT as hemodynamics will tolerate (carvedilol). Limited role of ACEI/ARB/ARNi/SGLT2i given renal dysfunction.
-Primary prevention ICD in place.
#PAF:
-Currently in NSR.
-Rate control with carvedilol.
-CHADS2-Vasc = 5 (CHF, HTN, Age x2, Vascular Disease).
-Resume dabigatran.
#CKD:
-Chronic, stage 3b.
-Creatinine stable after cardiac catheterization (creatinine 2.2).
#COPD:
-Chronic, stable.
-Continue home bronchodilators.
#Bicuspid AV with severe and dilated ascending aorta
-Chronic
-s/p bioprosthetic SAVR (#27 Braden 2800) and aortic root replacement (#30 [employer] [place] tube graft, SN [id number]).
-Stable on recent echocardiogram.
Subjective/Interval History:
Catheterization shows stable CAD, moderately elevated filling pressures (appropriate given degree of LV dysfunction).
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
Feels well.
Data:
Transthoracic Echocardiogram, 03/20/2024:
CONCLUSIONS
Asymmetric septal hypertrophy. Severely reduced left ventricular systolic
function. Left ventricular ejection fraction is 30-35%. Global hypokinesis with
akinesis of the basal inferior wall.
Mitral valve opens normally. Thickened mitral valve leaflets with mild mitral
regurgitation.
Normally functioning bioprosthetic aortic valve with mean gradients across the
aortic valve of 5 mmHg.
Moderate tricuspid regurgitation. Estimated pulmonary artery pressure of 38
mmHg.
The ascending aorta and aortic arch are of normal size.
Compared to the previous echo 12/09/23, there is no significant change.
CTA, 03/20/2024:
IMPRESSION:
No CTA evidence for an aortic dissection, intramural hematoma, or aneurysm.
Severe emphysema.
Previous CABG and placement of an aortic valve prosthesis left cardiac conduction device.
Cardiac Catheterization, 03/22/2024:CONCLUSIONS:
1. Right dominant circulation with an 80% lesion in the mid LAD followed by a 60% lesion in the more distal mid LAD and a chronic total occlusion of the proximal right coronary artery through the bifurcation, status post prior bypass (patent LOGAN
to mid LAD, patent SVG to RPDA, backfilling the large RPL), grossly unchanged from prior cardiac catheterization (09/17/2022).
2. Status post bioprosthetic aortic valve replacement without significant gradient on pullback.
3. Moderately elevated filling pressures (LVEDP = 20 mmHg, PCWP = 21 mmHg at 88.9 kg), likely appropriate given his known degree of LV dysfunction (LVEF 30-35%).
4. 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
5. Single-chamber ICD is observed.
Physical Exam
Vital Signs/Labs
Vital Signs
Temp Pulse Resp BP Pulse Ox
36.7 C 60 18 126/87 18
03/23/24 07:25 03/23/24 07:25 03/23/24 07:25 03/23/24 05:28 03/23/24 07:25
03/21/24 03/22/24 03/23/24
11:59 11:59 11:59
Actual Weight 87.6 kg 89.3 kg 88.3 kg
03/23/24 05:35
03/23/24 05:35
APTT Cancelled 03/21/24 14:40
Magnesium 2.4 mg/dl (1.6-2.3) H 03/23/24 05:35
TSH 2.88 uIU/ml (0.47-4.68) 03/20/24 00:48
03/20/24
00:48
Eoa-V-Tprejvkszjy Pept 2710
LAB Results
03/20/24 03/20/24 03/20/24
07:37 12:31 14:02
Troponin I 0.040 H* Cancelled 0.033
03/20/24 03/20/24 03/20/24
18:31 18:45 20:00
Troponin I Cancelled Cancelled Cancelled
03/21/24
01:19
Troponin I 0.032
Physical Exam
Constitutional: No acute distress and Comfortable
EENT: Anicteric and Moist mucous membranes
Cardiovascular: Rhythm & rate is regular, Pedal edema is absent, JVD pressure is normal, S1S2 is normal and Murmur/rub/gallop absent
Respiratory: Respiratory effort normal
GI: Soft, Distention absent, Flat, Non tender and Normal bowel sounds
Neuro/Psych: AO x 3
Other: Cath Site (Left radial access site is C/D/I.)
Data Reviewed
-
Date of Service: March 23, 2024
Medical Decision Making: Reviewed Test Results, Independent Historian Assessment, Test Interpretation and Review of Case with other Provider
EKG: Tracing Personally Visualized and interpreted and Report Reviewed by me
Echo: Report Reviewed by me
X-Ray/CT/US/MRI/NUC/PET: Image Personally Visualized and interpreted and Report Reviewed by me
Medical Tests (PFT, Pathology etc): Image Personally Visualized and interpreted and Report Reviewed by me
Labs: Labs Reviewed by me
Old Records: Reviewed
[2024-03-23] MEDS: HEPARIN 5000 UNITS SC (08:35)
[2024-03-23] MEDS: NEURONTIN 300 MG PO (08:35)
[2024-03-23] MEDS: LOW STRENGTH ASPIRIN 81 MG PO (08:35)
[2024-03-23] MEDS: PROTONIX 40 MG PO (08:35)
[2024-03-23] MEDS: KCL PO (08:50)
[2024-03-23] MEDS: BUMEX 3 MG PO (11:09)
[2024-03-23 11:11] VITALS: BP 116/72
--- NOTE | 2024-03-23 12:39 | W.DCSUMMARY ---
Discharge Summary
Discharge Data
Date of Admission: 03/20/24
Date of Discharge: 03/23/24
-
Pending Results: No
Hospital Course
Mr. Davison is a 78-year-old male with a medical history of HFrEF (30%), CAD (RI/PCI 2004, CABG 2017), severe aortic stenosis and dilated aortic root (status post bioprosthetic AVR and ascending aortic tube graft 2017), lung cancer (status post
right upper lobectomy 2010), paroxysmal A-fib, CKD stage IV, and COPD who presented with severe sudden onset interscapular pain. He was initially placed on nitro drip with some improvement in his symptoms. There was no evidence of aortic aneurysm
or dissection on angiography. He had mildly elevated troponin and reported his symptoms were very similar to his prior RI. Thus, he was brought for cardiac cath and coronary angiography on 03/22 which showed no acute obstructive disease. His
nitroglycerin drip was discontinued and he was deemed stable from a cardiovascular perspective. On exam he appeared to have significant intrascapular muscular hypertonicity. Gentle massage offered some relief. Would recommend ongoing stretching
and heat application. Would avoid using antispasmodics unless absolutely needed in order to avoid adverse effects such as hypotension. He remained hemodynamically stable throughout his hospitalization. He will be discharged to home with no
changes to his medication regimen. He should follow-up closely with his PCP and applications engineer manufacturing.
Gen-AAOx3, NAD
HEENT-NC, AT, anicteric, clear oral mm
Neck-supple
CV-reg, no M, +S1/S2
Lungs-clear B/L
Abd-soft, NT, ND
Musculoskeletal-no edema, no deformity, significant TTP intrascapular region
Skin-warm and dry
Neuro-grossly non-focal
Psych-calm, cooperative
Discharge Plan
-
Patient Disposition: Home (Routine Discharge)
Discharge Diagnosis/Procedures: Back pain
Diet: Low Cholesterol
Activity: As tolerated
Activity Restrictions/Additional Instructions:
Mr. Davison is a 78-year-old male with a medical history of HFrEF (30%), CAD (RI/PCI 2004, CABG 2017), severe aortic stenosis and dilated aortic root (status post bioprosthetic AVR and ascending aortic tube graft 2017), lung cancer (status post
right upper lobectomy 2010), paroxysmal A-fib, CKD stage IV, and COPD who presented with severe sudden onset interscapular pain. He was initially placed on nitro drip with some improvement in his symptoms. There was no evidence of aortic aneurysm
or dissection on angiography. He had mildly elevated troponin and reported his symptoms were very similar to his prior RI. Thus, he was brought for cardiac cath and coronary angiography on 03/22 which showed no acute obstructive disease. His
nitroglycerin drip was discontinued and he was deemed stable from a cardiovascular perspective. On exam he appeared to have significant intrascapular muscular hypertonicity. Gentle massage offered some relief. Would recommend ongoing stretching
and heat application. Would avoid using antispasmodics unless absolutely needed in order to avoid adverse effects such as hypotension. He remained hemodynamically stable throughout his hospitalization. He will be discharged to home with no
changes to his medication regimen. He should follow-up closely with his PCP and applications engineer manufacturing.
Referrals:
Nicolasa Escalera, DO [Active] - in three to four weeks (PFT)
UNKNOWN - PT DOES,NOT KNOW [Family Provider] -
Prescriptions:
Continued
atorvastatin 40 MG tablet
40 mg PO HS
carvedilol [Coreg] 6.25 mg Tablet
6.25 mg PO Q12H
gabapentin 300 mg Capsule
600 mg PO HS
magnesium oxide 400 mg magnesium Tablet
400 mg PO Q48H
acetaminophen [Tylenol Extra Strength] 500 mg Tablet
1,000 mg PO Q6HPRN PRN (Reason: mild pain)
pyridoxine (vitamin B6) [Vitamin B-6] 50 mg Tablet
50 mg PO DAILY
albuterol sulfate 2.5 mg /3 mL (0.083 %) Solution For Nebulization
2.5 mg INHALATION R Q48H
Patient Comments:
12/08/23: Mix in nebulizer with budesonide and ipratropium.
ascorbic acid (vitamin C) [Vitamin C] 500 mg Tablet
500 mg PO DAILY
gabapentin 300 mg Capsule
300 mg PO DAILY
budesonide 0.5 mg/2 mL Suspension For Nebulization
0.5 mg INHALATION R Q48H
Patient Comments:
12/08/23: Mix in nebulizer with albuterol and ipratropium.
ipratropium bromide 0.02 % Solution
2.5 ml INHALATION R Q48H
Patient Comments:
12/08/23: Mix in nebulizer with albuterol and budesonide
Trelegy Ellipta 200-62.5-25 mcg Blister With Device
1 inh INHALATION R Q48H
dabigatran etexilate [Pradaxa] 75 mg Capsule
75 mg PO BID 30 Days Qty: 30 0RF
potassium chloride 20 mEq Tablet Extended Release
20 meq PO BID 30 Days Qty: 60 0RF
pantoprazole 40 mg Tablet,Delayed Release (Dr/Ec)
40 mg PO BID Qty: 60 0RF
bumetanide 1 mg tablet
3 mg PO BID
Discharge Orders:
Discharge Patient (As Directed); Ordered 03/23/24
Ordered By: Aly Conner
Care Plan Goals
Care Plan Goals:
Problem: Readiness for enhanced knowledge related to diagnosis and treatment plan
Goal: Understand your diagnosis and treatment plan needs, including medications if applicable.
Instructions: Know your diagnosis, underlying causes and treatment plan options, including medications if applicable. Consult with your health care team to learn about your diagnosis and treatment plan, including medications if applicable.
Discharge Date and Time
Print Language: [place]
[2024-03-23] MEDS: DICLOFENAC 1% TOPICAL GEL 4 GRAM TOPICAL (13:08)
--- NOTE | 2024-03-23 13:14 | PTCARENOTE ---
IV and tele removed. Discharge instructions reviewed w/ spouse and pt. Verbalizes understanding. Belongings collected and sent w/ pt. Escorted via WC and staff assist. Discharged to home.
== END 2024-03-23 13:15 | disposition home or self-care (01) | DRG 286 ==
LOC: IVU 04:35
PROVIDERS: Internal Medicine; Internal Medicine Cardiovascular Disease; ADMITTING PHYSICIAN Hospitalist; ATTENDING PHYSICIAN Internal Medicine; CONSULT PHYSICIAN Internal Medicine Cardiovascular Disease; CONSULT PHYSICIAN Internal Medicine Critical Care Medicine; EMERGENCY PHYSICIAN Student in an Organized Health Care Education/Training Program
PROC: B2111ZZ Fluoroscopy of Multiple Coronary Arteries using Low Osmolar Contrast (ICD-10-PCS; 2024-03-22)
PROC: 4A023N8 Measurement of Cardiac Sampling and Pressure, Bilateral, Percutaneous Approach (ICD-10-PCS; 2024-03-22)
PROC: B2131ZZ Fluoroscopy of Multiple Coronary Artery Bypass Grafts using Low Osmolar Contrast (ICD-10-PCS; 2024-03-22)
DX: I13.0 Hypertensive heart and chronic kidney disease with heart failure and stage 1 through stage 4 chronic kidney disease, or unspecified chronic kidney disease (principal); I50.23 Acute on chronic systolic (congestive) heart failure; I24.9 Acute ischemic heart disease, unspecified; N18.4 Chronic kidney disease, stage 4 (severe); E78.00 Pure hypercholesterolemia, unspecified; I25.10 Atherosclerotic heart disease of native coronary artery without angina pectoris; J43.9 Emphysema, unspecified; I48.0 Paroxysmal atrial fibrillation; E89.0 Postprocedural hypothyroidism; M54.6 Pain in thoracic spine; I49.3 Ventricular premature depolarization; R79.89 Other specified abnormal findings of blood chemistry; D63.1 Anemia in chronic kidney disease; I27.29 Other secondary pulmonary hypertension; I07.1 Rheumatic tricuspid insufficiency; I25.5 Ischemic cardiomyopathy; H54.62 Unqualified visual loss, left eye, normal vision right eye; Z95.3 Presence of xenogenic heart valve; I25.2 Old myocardial infarction; Z95.1 Presence of aortocoronary bypass graft; Z86.73 Personal history of transient ischemic attack (TIA), and cerebral infarction without residual deficits; Z95.5 Presence of coronary angioplasty implant and graft; Z79.01 Long term (current) use of anticoagulants; Z87.891 Personal history of nicotine dependence; Z79.51 Long term (current) use of inhaled steroids; Z85.850 Personal history of malignant neoplasm of thyroid; Z85.118 Personal history of other malignant neoplasm of bronchus and lung; Z95.810 Presence of automatic (implantable) cardiac defibrillator; Z88.5 Allergy status to narcotic agent; Z88.0 Allergy status to penicillin; Z90.2 Acquired absence of lung [part of]
CPT/HCPCS: 71045; 71275; 80048; 80053; 83735; 83880; 84100; 84443; 84484; 85025; 85027; 85730; 93005; 93306; 93461; 96365; 96366; 96375; 99291; C1894; Q9967

== ENCOUNTER → 2024-04-07 12:09 | Outpatient (REF) | payer OTHER, SELFPAY | LOC: RAD 12:09 | PROVIDERS: ATTENDING PHYSICIAN Family Medicine | DX: M54.9 Dorsalgia, unspecified (principal); G54.2 Cervical root disorders, not elsewhere classified | CPT/HCPCS: 72050; 72072 ==

== ENCOUNTER → 2024-04-21 11:36 | Outpatient (REF) | payer OTHER, SELFPAY ==
[2024-04-21 12:05] LABS: Hematocrit 36.7 % (39.0-52.0); Hemoglobin 12.2 g/dL (13.0-18.0); Mean Corp Hgb Conc. 33.2 g/dL (33.0-37.0); Mean Corpuscular Hgb 29.1 pg (27.0-31.0); Mean Corpuscular Volume 87.6 fL (80.0-94.0); Mean Platelet Volume 10.5 fL (7.4-10.4); Platelet Count 205 10^3/uL (130-400); Red Blood Cell Count 4.19 10^6/uL (4.70-6.10); Red Cell Dist. Width 15.9 % (11.5-14.5); White Blood Cell Count 7.9 10^3/uL (4.8-10.8)
[2024-04-21 13:09] LABS: Blood Urea Nitrogen 24 mg/dl (9-20); Calcium 10.1 mg/dl (8.4-10.2); Carbon Dioxide 25 mmol/L (22-30); Chloride 103 mmol/L (98-107); Glucose 97 mg/dl (70-99); Potassium 4.7 mmol/L (3.5-5.1); Sodium 137 mmol/L (135-145); eGFR 28.35
== END ==
LOC: REG 11:36
PROVIDERS: ATTENDING PHYSICIAN Nurse Practitioner Gerontology; FAMILY PHYSICIAN Family Medicine
DX: R53.1 Weakness (principal)
CPT/HCPCS: 36415; 80048; 85027

== ENCOUNTER 2024-06-18 02:46 | Inpatient (IN) | payer OTHER, SELFPAY ==
[2024-06-18] VITALS (21 sets, daily range): BP systolic 102–147; BP diastolic 61–88; BMI 25.9; BMI 24.9
[2024-06-18 00:56] LABS: ALT (SGPT) 16 U/L (0-50); AST (SGOT) 22 U/L (17-59); Albumin 3.8 g/dl (3.5-5.0); Alkaline Phosphatase 136 U/L (38-126); Blood Urea Nitrogen 31 mg/dl (9-20); Calcium 10.8 mg/dl (8.4-10.2); Carbon Dioxide 30 mmol/L (22-30); Chloride 101 mmol/L (98-107); Estimated Creatinine Clearance 29 ml/min; Glucose 132 mg/dl (70-99); Potassium 3.1 mmol/L (3.5-5.1); Sodium 141 mmol/L (135-145); Total Protein 6.9 g/dl (6.3-8.2); eGFR 28.35
[2024-06-18 01:01] LABS: % Basophils 1.1 % (0-2); % Eosinophils 1.2 % (0-6); % Immature Granulocytes 0.2 % (0-0.5); % Lymphocytes 13.1 % (20.5-51.1); % Monocytes 16.4 % (1.7-9.3); Absolute Basophils 0.1 10^3/uL (0-0.2); Absolute Eosinophils 0.1 10^3/uL (0-0.7); Absolute Lymphocytes 1.2 10^3/uL (1.2-3.4); Absolute Monocytes 1.5 10^3/uL (0.1-0.6); Absolute Neutrophils 6.3 10^3/uL (1.4-6.5); Hematocrit 39.3 % (39.0-52.0); Hemoglobin 13.2 g/dL (13.0-18.0); Mean Corp Hgb Conc. 33.6 g/dL (33.0-37.0); Mean Corpuscular Hgb 28.8 pg (27.0-31.0); Mean Corpuscular Volume 85.6 fL (80.0-94.0); Mean Platelet Volume 10.3 fL (7.4-10.4); Nucleated Red Blood Cells % 0 % (-); Platelet Count 265 10^3/uL (130-400); Red Blood Cell Count 4.59 10^6/uL (4.70-6.10); Red Cell Dist. Width 16.4 % (11.5-14.5); White Blood Cell Count 9.3 10^3/uL (4.8-10.8)
[2024-06-18 01:02] LABS: NT-proBNP 4660 pg/ml; Troponin I 0.088 ng/ml
--- NOTE | 2024-06-18 01:29 | ED.GENMED ---
History of Present Illness
General
Chief Complaint: Breathing Problem
Source: patient, records, previous radiology exam and previous hospital records
Exam Limitations: none
Time Seen by Provider: 06/18/24 00:37
Nursing documentation reviewed up to this point in time: agreed with
History of Present Illness
History of Present Illness:
79-year male presents with cough shortness of breath, subacute onset, history of COPD quit smoking a few years ago history of congestive heart failure compliant with his diuretic admitted recently with possible ACS underwent a cardiac cath,
nonobstructive coronary disease, he felt nauseous earlier today, sweaty no chills, no dysuria or frequency, states he has been compliant with his diuretic, patient states he has been compliant with his meds,
Past History
Past History
ED Past Medical History: Arrthythmia (Atrial fib), CAD, Cancer (lung/Thyroid), CHF, COPD, CVA, HTN, Hypercholesterolemia, ND, Valvular disease and Other (sepsis, Headache over the left eye continually, Renal issues, Blind left eye, Ulcers)
ED Past Surgical History: Appendectomy, Cardiac (CABG, stents), Tonsilectomy, Urological (Bladder repair, ) and Other (Laparoscopic left inguinal hernia repair November 19, 2021, Left upper lobectomy, thyroidectomy)
Social History
Tobacco: Former smoker (Sneaking a few cigarettes according to .)
Alcohol: Daily (Wine 1)
Drug: None
Personal:
Living: with family
Employment: Retired
Family History
Family History: Other (Noncontributory)
Review of Systems
Review of Systems
All Other Systems: Not applicable
Constitutional: Reports fatigue
EENT: Reports no symptoms
Respiratory: Reports cough and trouble breathing
Cardiac: Denies chest pain
ABD/GI: Reports no symptoms; Denies abdominal pain, nausea or diarrhea
: Reports no symptoms
Musculoskeletal: Reports no symptoms
Skin: Reports no symptoms
Neurological: Reports weakness
Endocrine: Reports no symptoms
Phy Exam
Physical Exam
Physical Exam:
Physical Exam
General: Dyspneic appearing male
Neck: No JVD
Heart: Irregular
Lungs: Expiratory wheeze
Abdomen: Soft nontender
Neuro: alert and oriented. no focal neurological deficits
Skin: no rash
Psychiatric: well kept. interactive and cooperative
Extremities: No edema no calf
Scores
Heart Failure Risk
Heart Failure Risk Score: Not Applicable
Course
Orders/Labs/Results
Orders:
Orders
06/18/24 00:16
Electrocardiogram (*1) Urgent
Reason for Study: Other
Other Reason for Exam: Respiratory Distress
Cardiac Monitoring- Treatment ONCE
IV Insert/Care/Rem.- Treatment PRN
CR Chest - 2 Views Urgent
Comment:
Reason For Exam: respiratory distress
O2 Therapy [RESP] Urgent
Titrate/Wean O2 to maintain O2 sat greater than (%): 93
Special Instructions: TO MAINTAIN CONTINUOUS O2 SATS >/= 93%
Pulse Ox/cont/shift [RESP] Urgent
Quantity: 1
Special Instructions: continuous pulse ox
06/18/24 00:26
Complete Blood Count/With Diff Urgent
Comprehensive Metabolic Panel Urgent
Magnesium Urgent
NT-proBNP Urgent
Troponin I Urgent
06/18/24 01:20
Ipratropium/Albuterol Sulfate [Duoneb] 3 ml INH R NOW STA
06/18/24 01:23
Potassium Chloride [KCl] 40 meq PO NOW STA
06/18/24 01:36
Dexamethasone Sod Phosphate [Decadron] 10 mg IV NOW STA
06/18/24 01:43
Add On- LAB Urgent
Tests Added?: Magnesium
06/18/24 02:26
Admit/Transfer Patient As Directed
Co-Sign Provider:
Level of Care: Inpatient admission
Assign to:: Telemetry
Physician / Group: Wu
Diagnosis: shortness of breath
Reason for Telemetry: Chest Pain syndromes
Date to Stop Telemetry: 06/20/24
Time to Stop Telemetry: 11:00
Reason for Hospitalization: shortness of breath
Expected length of stay greater than two midnights?: Yes
ELOS- Estimated Length of Stay in days: 2
I certify the patient meets the requirements for IP care: Yes
PRN Pain Medication Management As Directed
May give lesser potent ordered pain med per pt: Yes
preference::
Protocol:: Medication orders for pain may be administered in a
manner that supports deferring to patient preference
when the pt is:
- Requesting an ordered lesser potent pain medication.
Least to most potent pain medications are defined
as: acetaminophen < NSAID < tramadol < opioids
(morphine, oxycodone, hydromorphone).
- Requesting a lesser dose of the same medication IF
ORDERED.
- Requesting a less intrusive route of administration
if both routes are prescribed by the provider (PO <
IV).
06/18/24 02:29
Code Status As Directed
Resuscitation Status: Full Code
06/18/24 03:05
COVID-19 Antigen Stat
Source: Nasal Swab
Influenza A+B Rapid Molecular Stat
ALYSE Source: Nasal Swab
Specimen Description:
06/18/24 03:33
Acetaminophen [Tylenol] 650 mg PO Q6HPRN PRN
Ipratropium/Albuterol Sulfate [Duoneb] 3 ml INH R Q4HPRN PRN
06/18/24 03:33
VTE Contraindication Routine
VTE Mechanical Device Contraindication: Medical Contraindication
Pharmocologic Contraindication: Medical Contraindication
Activity As Directed
Activity Level: With Assistance
Intake/ Output As Directed
Frequency: Per unit guidelines
Patient Education As Directed
Type: CHF folder
Comment: give on admission. Document in Interdisciplinary Education record
Sleep Apnea Assessment by RN As Directed
Comment:
Physician Instructions:
Vital Signs As Directed
Frequency: Other
Additional Instructions:: Q12 or per unit guidelines if more frequent.
Weight As Directed
Frequency: Daily
Type of Scale: Standing Scale
Comment: Daily morning weight. If unable to stand, use balanced bed scale.
Weight As Directed
Frequency: Once
Type of Scale: Standing Scale
Comment: Upon Admission. If unable to stand, use balanced bed scale.
Pulse Ox/cont/shift [RESP] Routine
Quantity: 1
Special Instructions: Daily pulse oximetry at rest. If greater than 92% at rest also obtain pulse oximetry
while ambulating as tolerated.
US Abdomen Limited Routine
Comment:
Reason For Exam: eval for moderate to large ascites
06/18/24 05:11
Basic Metabolic Panel IN AM
Complete Blood Count/No Diff IN AM
Magnesium IN AM
Troponin I Q6H
Comment: at admission & every 6 hours x 2 (3 total), ECG to be done with each level
06/18/24 Breakfast
Cholesterol Lowering
At Your Request: Full Participation
Cholesterol Lowering: Sodium, 2 Gram
06/18/24 08:00
Budesonide [Pulmicort] 0.5 mg INH R Q48H
Bumetanide [Bumex] 2 mg PO BID
Carvedilol [Coreg] 3.125 mg PO Q12
Dabigatran Etexilate Mesylate [Pradaxa] 75 mg PO BID
Gabapentin [Neurontin] 300 mg PO DAILY
Pantoprazole [Protonix] 40 mg PO BID
Potassium Chloride [KCl] 20 meq PO BID
Pyridoxine [Vitamin B-6] 50 mg PO DAILY
06/18/24 12:59
Troponin I Q6H
Comment: at admission & every 6 hours x 2 (3 total), ECG to be done with each level
06/18/24 22:00
Atorvastatin [Lipitor] 40 mg PO HS
Gabapentin [Neurontin] 600 mg PO HS
06/19/24 06:40
Basic Metabolic Panel IN AM
06/19/24 08:00
Budesonide/Formoterol 160/4.5 [Symbicort 160/4.5 Mcg Inhaler] 2 puff INH R Q48H
06/20/24 07:10
Basic Metabolic Panel IN AM
06/20/24 11:00
DC Protocol for Telemetry ONCE
Abnormal Lab Results
06/18/24
00:26
RBC 4.59 L 10^6/uL
(4.70-6.10)
RDW 16.4 H %
(11.5-14.5)
Absolute Monos (auto) 1.5 H 10^3/uL
(0.1-0.6)
Lymphocytes % 13.1 L %
(20.5-51.1)
Monocytes % 16.4 H %
(1.7-9.3)
Potassium 3.1 L mmol/L
(3.5-5.1)
BUN 31 H mg/dl
(9-20)
Creatinine 2.3 H mg/dL
(0.7-1.3)
Glucose 132 H mg/dl
(70-99)
Calcium 10.8 H mg/dl
(8.4-10.2)
Alkaline Phosphatase 136 H U/L
(38-126)
Troponin I 0.088 H* ng/ml
06/18/24 00:26
06/18/24 00:26
Vital Signs
Initial and Last Documented VS:
Initial Vital Signs
Temp Pulse Resp BP Pulse Ox
98.1 F 85 24 135/88 97
06/18/24 00:06 06/18/24 00:06 06/18/24 00:06 06/18/24 00:06 06/18/24 00:06
Last Documented Vital Signs
Temp Pulse Resp BP Pulse Ox
97.6 F 73 16 107/67 94
06/22/24 12:59 06/22/24 12:59 06/22/24 12:59 06/22/24 12:59 06/22/24 12:59
MDM/Problems Addressed
Differential Diagnosis Includes:
COPD CHF pneumonia deconditioning doubt PE as he is anticoagulated
MDM/Problems Addressed:
Shortness of breath
Chronic conditions affecting care: DM, HTN, CAD, Cardiomyopathy, Arrhythmia and COPD
Acute Exacerbation and/or Progression of Chronic Illness: DM, HTN, CAD, Cardiomyopathy, Arrhythmia and COPD
*Radiology
Radiology exam reviewed: preliminary read by ED provider
*Pulse Oximetry
Patient hypoxic: no
*EKG
Interpreted by ED Provider?: Yes
Interpretation: abnormal
Comparison EKG: no changes
Heart Rate: 78
Rate: normal
Rhythm: a-fib
Ischemia: non-specific ST changes
*Energy Auditor Interpretation
Rate: normal
Interpretation: normal
Heart Rate: 88
Rhythm: a-fib
*Critical Care Note
Total Time (30-74mins, 75-104mins- exclusive of procedures): Not Applicable
Data Reviewed
Review of Other/Old Records Reveals: Labs, Discharge Summary and Other (Cath report)
Source: patient and records
Prescriptions/Medications Considered But Not Given:
Lasix
Further Testing Considered But Not Given:
CT of the chest
Patient Management
Social determinants of health affecting care: Living situation
Discussion with other providers: Hospitalist
Escalation/DeEscalation of care consider admission/obs:
Patient elderly with multiple medical conditions dyspneic,
ED Attending Note
-
Portions of this chart may have been created with voice recognition software.� Occasional wrong word or��sound alike� substitutions may have occurred due to the inherent limitations of voice recognition software.
Discharge Plan
Departure
Patient Disposition: Admit
Date of Disposition: 06/18/24
Time of Disposition: 01:46
Admit to: Telemetry
Presentation/result/management discussed w/ accepting MD/DO: Hospitalist
Condition: Fair
Covid-19: Not Applicable
Discharge Problem:
COPD (chronic obstructive pulmonary disease), Permanent atrial fibrillation, Chronic kidney disease, stage 4 (severe), Acute on chronic systolic (congestive) heart failure
Interventions
Interventions:
*Risk Screen - Suicide Last Done: 06/18/24 00:06
*General Assessment Last Done: 06/18/24 00:06
*Neglect/Abuse Screening Last Done: 06/18/24 00:06
*ED- Fall Risk Assessment Last Done: 06/18/24 00:06
*ED COVID-19 Vaccine History Last Done: 06/18/24 00:06
*Nursing Disposition Last Done: 06/18/24 13:45
ED- Cardiac Assessment Last Done: 06/18/24 00:28
ED- Pulmonary Assessment Last Done: 06/18/24 00:28
Discharge Date and Time
Discharge Date/Time: 06/18/24 14:05
[2024-06-18] MEDS: KCL 40 MEQ PO (01:40)
[2024-06-18] MEDS: DUONEB 3 ML INH (01:40)
[2024-06-18] MEDS: DECADRON 10 MG IV (01:46)
--- NOTE | 2024-06-18 02:11 | HPS.HSE ---
Family Physician
-
Family Physician: * NONE
Chief Complaint
-
Shortness of breath
History of Present Illness
This is a 79-year-old male with past medical history significant for COPD not on home O2, CHF with reduced EF of 30%, history of CAD status post UT with PCI 2004, status post CABG in 2018, severe aortic stenosis and dilated aortic root status post
bioprosthetic AVR, lung cancer status post right upper lobe lobectomy, paroxysmal atrial fibrillation on Pradaxa and CKD stage IV with baseline creatinine of around 2.3 presenting to the emergency department with about 2 to 3 days of shortness of
breath.
Patient reports some minor upper respiratory congestion with some minor postnasal drip. He denies any new productive cough. He denies any audible wheezes. He denies fevers or chills at home. Stated that his did travel for 4 and she just
came back a day ago when she saw him she requested that he go to the emergency department. Patient reports that he feels she is unable to catch his breath despite the deep inspiration. He reports he feels some abdominal bloating. He reports that
his weight has remained around 190 pounds and has not changed for about a year. He denies any lower extremity edema. Reports compliance with his medications. He denies any chest pain, palpitations. He states he is unable to get comfortable.
When he lays more supine he feels sob and can't catch his breath, panics and then takes minutes to recover; when he sits up he feels abdominal fullness and pain. He reports taking bumex 2mg bid with good output. He reports maintenance of 44Oz
fluid restriction but feels he is taking in more that his output. Despite this weight has remained the same. Patient was admitted for chest pain/ACS in March with troponin peak of around 0.04. At that time he had cardiac cath which showed no
evidence of obstruction. CT angiogram of the chest was negative for PE, dissection or aneurysm. He has been maintained on anticoagulation before and since then.
In the emergency department patient was afebrile with a temp of 98, he was satting 97% on room air. Blood pressure was 102/68 with a pulse rate of 81. ECG shows sinus rhythm at a rate of 91 with right bundle. His troponin was elevated at 0.088.
BNP was elevated at 4600. Chest x-ray on my read is unchanged from prior showing partial right lung resection and emphysematous changes.
Medical History
Past Medical History
Past Medical History: Reports Other
Additional Past Medical History:
Hypertension
Paroxysmal Atrial Fibrillation
Valvular Heart Disease
HFrEF
ASCVD
CKD stage III
Lung Cancer
Thyroid Cancer
Left Eye Chronic Blindness (childhood trauma)
Past Surgical History: Reports Other
Additional Past Surgical History:
CABG
PTCA with Stent
AICD
Right upper lobectomy
Partial Thyroidectomy
Hernia repair
Laparotomy / Bladder Repair
T&A
Appendectomy
Social History
Tobacco: Former Smoker (> 50 pack years total use.)
Alcohol: None
Drug: None
Personal:
Living: With Family
Employment: Retired
Family History
Family History: Not pertinent
Allergies / Home Medications
Allergies reflects when Allergies were last updated in [facility].
Home Medications with original date entered in [facility]
Allergy/Medication List:
Allergies
Allergy/AdvReac Type Severity Reaction Status Date / Time
codeine [Codeine] Allergy nausea Verified 06/18/24 00:05
vomiting
Penicillins Allergy Hives, Verified 06/18/24 00:05
swelling,
tolerated
ceftriaxone
Feb 2020
Home Medications
atorvastatin 40 mg tablet 40 mg PO HS High cholesterol 04/25/22
carvedilol 6.25 mg tablet (Coreg) 6.25 mg PO Q12H blood pressure / heart condition 03/14/23
gabapentin 300 mg capsule 600 mg PO HS Pain 03/14/23
magnesium oxide 400 mg PO Q48H Electrolyte Repletion 03/14/23
acetaminophen 500 mg tablet (Tylenol Extra Strength) 1,000 mg PO Q6HPRN PRN mild pain 04/01/23
pyridoxine (vitamin B6) 50 mg tablet (Vitamin B-6) 50 mg PO DAILY Supplement 04/01/23
albuterol sulfate 2.5 mg/3 mL (0.083 %) solution for nebulization 2.5 mg inhalation R Q48H Lung/Breathing Issues 12/08/23
ascorbic acid (vitamin C) 500 mg tablet (Vitamin C) 500 mg PO DAILY Supplement 12/08/23
budesonide 0.5 mg/2 mL suspension for nebulization 0.5 mg inhalation R Q48H Lung/Breathing Issues 12/08/23
fluticasone fur. 200 mcg-umeclid 62.5 mcg-vilant 25 mcg inhalat.powder (Trelegy Ellipta) 1 inh inhalation R Q48H Lung/Breathing Issues 12/08/23
gabapentin 300 mg capsule 300 mg PO DAILY pain 12/08/23
ipratropium bromide 0.02 % solution for inhalation 2.5 ml inhalation R Q48H Allergies 12/08/23
dabigatran etexilate 75 mg capsule (Pradaxa) 75 mg PO BID Blood clot prevention/tx 30 days #30 caps 12/16/23
pantoprazole 40 mg tablet,delayed release 40 mg PO BID Gastrointestinal issue #60 tabs 12/16/23
potassium chloride 20 mEq tablet,extended release 20 meq PO BID Electrolyte Repletion 30 days #60 tabs 12/16/23
bumetanide 1 mg tablet 3 mg PO BID Fluid retention/Swelling 03/20/24
Review of Systems
-
History Source: Patient
Constitutional: Reports Night Sweats
EENT: Reports No Symptoms
Respiratory: Reports Trouble Breathing
Cardiac: Reports No Symptoms
Abdomen/GI: Reports Abdominal Pain
: Reports No Symptoms
Musculoskeletal: Reports No Symptoms
Skin: Reports No Symptoms
Neurological: Reports No Symptoms
Endocrine: Reports No Symptoms
Hematologic/Lymphatic: Reports No Symptoms
Psych: Reports No Symptoms
Physical Exam
Vital Signs
Vital Signs
Temp Pulse Resp BP Pulse Ox
98.1 F 81 17 102/68 97
06/18/24 00:06 06/18/24 01:00 06/18/24 01:00 06/18/24 01:00 06/18/24 01:00
Physical Exam
General: Well Developed, Well Nourished, No Apparent Distress and Comfortable
HEENT: NormoCephalic, Anicteric, Moist mucous membranes and Atraumatic
Respiratory: Clear and Non Labored Respirations; No Wheezes, Rhonchi, Crackles or Accessory Resp Muscle Use
Cardiac: S1/S2 and Regular Rhythm
GI: Soft, Non Tender, Normal Bowel Sounds and Distended
Rectal: Deferred by Provider
Genito-urinary: Deferred by me
Musculoskeletal: No Clubbing, No Cyanosis and No Edema
Skin: Warm
Neuro: AO x 3 and Nonfocal/grossly intact
Hematologic/Lymphatic: No Lymphadenopathy
Psych: Calm
Laboratory Results
-
06/18/24 00:26
06/18/24 00:26
Laboratory Results
Total Bilirubin 1.0 mg/dl (0.2-1.3) 06/18/24 00:26
AST 22 U/L (17-59) 06/18/24 00:26
ALT 16 U/L (0-50) 06/18/24 00:26
Alkaline Phosphatase 136 U/L (38-126) H 06/18/24 00:26
Troponin I 0.088 ng/ml H* 06/18/24 00:26
Data Reviewed
-
Diagnostic Radiology: Image Personally Visualized and interpreted
Medical Tests (Nuc Med, Echo, EKG etc): Image Personally Visualized and interpreted
Lab Data: Labs Reviewed by me
Old Records: Reviewed
Impression/Plan
-
IMPRESSION:
79-year-old with multiple cardiac comorbidities including CAD status post CABG, atrial fibrillation, history of aortic stenosis and aortic root dilation status post bioprosthetic AVR and ascending aortic tube graft, lung cancer status post right
upper lobectomy, COPD not on home O2 and CKD stage IV who presents to the emergency department with approximately 2 days of shortness of breath. He is satting at 97 to 99% on room air. Patient has no significant cough. No mucus production. He is
not wheezing. His lungs are clear without any acute infiltrates. He is afebrile has no leukocytosis. He has no pulmonary edema no peripheral edema and no JVD. ECG is nonischemic. His troponin is more elevated compared to prior at 0.08. BNP is
also elevated at 4600. He is somewhat tachypneic and endorses orthopnea as primary symptoms. Still SOB despite nebs. He had a negative CT angiogram in March and has been on anticoagulation since then. He has not had any acute weight gain. He
has no complaints of chest pain. Possibly he has some volume overload with orthopnea and fluid in the abdomen from ascites. Possibly the work of breathing is also secondary to an acute infectious process such as a viral illness. Cannot rule out
ACS again. No obvious evidence of acute COPD exacerbation today.
PLAN:
1. SOB - Suspect CHF vs viral infection.
- admit to telemetry
- rule out covid/flu
- no abx needed at this time
- check VBG
- no indication for steroids or intensification of COPD nebs, continue prn nebs
- unlikely PE as patient on pradaxa since march and did not have PE at that time (will check INR and D-dimer)
2. CAD/Elevated troponin - Trop 0.08, denies cp. ECG is non-ischemic. Coronary angio is non-obstructive in March. Echo at the time was unchanged, EF 30%, hypokinesis, normal functioning bioprosthetic valve and mild pulmonary pressure elevation
- continue pradaxa
- trend troponins
- consider CT PE
3.AFIB on Pradaxa
- continue coreg
- continue pradaxa
4. CHF - BNP elevated. Orthopnea. Normal oxygenation. No weight gain. No peripheral edema. No pulmonary edema. Possible increased ascites. ?Anxiety?
- trial of intensified diuretics after repletion of K to > 3.5, and checking VBG for alkalosis in am, then start metolazone 2.5mg + bumex 2mg iv bid as bp tolerates
- abd u/s for ascites
- continue coreg 3.125 bid
- additional GDMT limited by renal dysfunction and bp
- will hold off on repeat echo pending trop trend and cards consult
- cardiology consult
DVT PPX - on apixaban
Code status - Full Code
[2024-06-18 02:16] LABS: Magnesium 2.2 mg/dl (1.6-2.3)
[2024-06-18 03:27] LABS: COVID-19 Antigen Negative (Negative)
[2024-06-18 05:20] LABS: Venous Blood Gas B.E. 4.4 mmol/L (-4 to +4); Venous Blood Gas HCO3 26.2 mmol/L (22-27); Venous Blood Gas O2 Sat % 98.1 %; Venous Blood Gas pCO2 30 mmHg (35-48); Venous Blood Gas pH 7.55 (7.32-7.43); Venous Blood Gas pO2 91 mmHg (30-50)
[2024-06-18] MEDS: ZAROXOLYN 2.5 MG PO (05:20)
[2024-06-18] MEDS: KCL 20 MEQ PO ×3 (05:20→21:45)
[2024-06-18 05:24] LABS: Hematocrit 37.8 % (39.0-52.0); Mean Corp Hgb Conc. 34.4 g/dL (33.0-37.0); Mean Corpuscular Hgb 28.7 pg (27.0-31.0); Mean Corpuscular Volume 83.4 fL (80.0-94.0); Mean Platelet Volume 10.2 fL (7.4-10.4); Platelet Count 240 10^3/uL (130-400); Red Blood Cell Count 4.53 10^6/uL (4.70-6.10); Red Cell Dist. Width 16.2 % (11.5-14.5); White Blood Cell Count 9.4 10^3/uL (4.8-10.8)
[2024-06-18 05:45] LABS: Urine Albumin Negative (Neg - Trace); Urine Bilirubin Negative (Negative); Urine Character Clear (Clear); Urine Color Yellow; Urine Glucose Negative (Negative); Urine Ketone Negative (Negative); Urine Leukocyte 2+ (Negative); Urine Nitrite Negative (Negative); Urine Occult Blood Negative (Negative); Urine Specific Gravity 1.015 (<1.030); Urine Urobilinogen Negative (Neg - 1+)
[2024-06-18 05:49] LABS: Blood Urea Nitrogen 30 mg/dl (9-20); Calcium 10.5 mg/dl (8.4-10.2); Carbon Dioxide 25 mmol/L (22-30); Chloride 103 mmol/L (98-107); Estimated Creatinine Clearance 29 ml/min; Glucose 183 mg/dl (70-99); Potassium 3.3 mmol/L (3.5-5.1); Sodium 138 mmol/L (135-145); eGFR 28.35
[2024-06-18 06:11] LABS: Urine Red Blood Cell None Seen /HPF (0-2)
[2024-06-18 06:12] LABS: Urine Bacteria Few (Negative); Urine White Cell 16-20 /HPF (0-5)
[2024-06-18] MEDS: BUMEX 2 MG IV (07:55)
[2024-06-18] MEDS: COREG 3.125 MG PO ×2 (08:00→21:45)
[2024-06-18] MEDS: NEURONTIN 300 MG PO (08:01)
[2024-06-18] MEDS: VITAMIN B-6 50 MG PO (08:02)
[2024-06-18] MEDS: PROTONIX 40 MG PO ×2 (08:02→21:45)
[2024-06-18] MEDS: PULMICORT 0.5 MG INH (08:16)
--- NOTE | 2024-06-18 09:27 | CON.CAR ---
Addendum entered and electronically signed by Subhash Baig MD 06/18/24 13:33:
79 yo male with PMH of ICM, EF 30%, chronic HFrEF, h/o CAD/CABG, bio-AVR, CKD3b, COPD is admitted with SOB. He does not have edema, but does report abdominal distention. Exam with RRR, II/IV systolic murmur at RUSB, no edema. Cr 2.3. Tele: sinus
with PVC's.
Acute on chronic HFrEF. Severe, requiring hospitalization and IV diuresis, with close monitoring of labs, tele. Continue bumex 3mg IV bid.
Original Note:
Consultation
Consultation Request
Date/Time Consultation Requested: 06/18/24 4:30a
Date/Time Consultation Performed: 06/18/24 8:45a
Requesting Provider: Dr. Washburn
Performing Provider: KATHI Orlando for Dr. Baig
Reason for Consultation: SOB
Medical History
-
Chief Complaint: SOB
History of Present Illness:
Mr. Davison is a 79 yo male with ICM, HFrEF 30%, bicuspid aortic valve with severe aortic stenosis and dilated aortic root and CAD s/p CABG and biological AVR and ascending aortic tube graft replacement in 2018, CAD (inferior LA/PCI 2004), tobacco
use (right upper lobectomy for lung cancer 2010), CKD 3b, severe COPD, and paroxysmal atrial fibrillation on Pradaxa, who presents to the ER with c/o SOB for 3-4 days. He states his weight has been stable 189-191 lbs at home and reports compliance
with his medications at home. He admits to PND, orthopnea and also abdominal pain/discomfort. He is admitted to the hospitalist service and we are consulted for SOB. He had a cath 03/22/24 with stable CAD, no acute obstructive disease. Echo
03/20/24 EF 30-35%, severely reduced LV systolic function, global hypokinesis with akinesis of basal inferior wall, mild MR, normally functioning bio AVR with mean gradient 5mmHg, moderate TR, PASP 38 mmHg.
Past Medical History
Past Medical History: Other (as above)
Past Surgical History: Other (as above)
Social History
Tobacco: Former Smoker
Personal:
Living: With Family
Family History
Family History: Reviewed & Not Pertinent
Allergies / Home Medications
Allergy/AdvReac Type Severity Reaction Status Date / Time
codeine [Codeine] Allergy nausea Verified 06/18/24 00:05
vomiting
Penicillins Allergy Hives, Verified 06/18/24 00:05
swelling,
tolerated
ceftriaxone
Feb 2020
�Medication �Instructions �Recorded �Confirmed �Type
atorvastatin 40 mg tablet 40 mg PO HS High cholesterol 04/25/22 03/20/24 History
carvedilol 6.25 mg tablet (Coreg) 6.25 mg PO Q12H blood pressure / 03/14/23 03/20/24 History
heart condition
gabapentin 300 mg capsule 600 mg PO HS Pain 03/14/23 03/20/24 History
magnesium oxide 400 mg PO Q48H Electrolyte 03/14/23 03/20/24 History
Repletion
acetaminophen 500 mg tablet 1,000 mg PO Q6HPRN PRN mild pain 04/01/23 03/20/24 History
(Tylenol Extra Strength)
pyridoxine (vitamin B6) 50 mg 50 mg PO DAILY Supplement 04/01/23 03/20/24 History
tablet (Vitamin B-6)
albuterol sulfate 2.5 mg/3 mL 2.5 mg inhalation R Q48H 12/08/23 03/20/24 History
(0.083 %) solution for nebulization Lung/Breathing Issues
ascorbic acid (vitamin C) 500 mg 500 mg PO DAILY Supplement 12/08/23 03/20/24 History
tablet (Vitamin C)
budesonide 0.5 mg/2 mL suspension 0.5 mg inhalation R Q48H 12/08/23 03/20/24 History
for nebulization Lung/Breathing Issues
fluticasone fur. 200 mcg-umeclid 1 inh inhalation R Q48H 12/08/23 03/20/24 History
62.5 mcg-vilant 25 mcg Lung/Breathing Issues
inhalat.powder (Trelegy Ellipta)
gabapentin 300 mg capsule 300 mg PO DAILY pain 12/08/23 03/20/24 History
ipratropium bromide 0.02 % 2.5 ml inhalation R Q48H Allergies 12/08/23 03/20/24 History
solution for inhalation
dabigatran etexilate 75 mg capsule 75 mg PO BID Blood clot 12/16/23 03/20/24 Rx
(Pradaxa) prevention/tx 30 days #30 caps
pantoprazole 40 mg tablet,delayed 40 mg PO BID Gastrointestinal 12/16/23 03/20/24 Rx
release issue #60 tabs
potassium chloride 20 mEq 20 meq PO BID Electrolyte 12/16/23 03/20/24 Rx
tablet,extended release Repletion 30 days #60 tabs
bumetanide 1 mg tablet 3 mg PO BID Fluid 03/20/24 03/20/24 History
retention/Swelling
Review of Systems
-
History Source: Patient
All other systems: Negative unless noted
Physical Exam
Vital Signs
Temp Pulse Resp BP Pulse Ox
98.0 F 83 17 116/70 95
06/18/24 07:57 06/18/24 08:15 06/18/24 08:15 06/18/24 06:00 06/18/24 08:15
Lab Results
06/18/24 05:11
06/18/24 05:11
Troponin I 0.090 ng/ml H* 06/18/24 05:11
Lkl-L-Rrmuhfpfmja Pept 4660 pg/ml 06/18/24 00:26
Physical Exam
General: Well Developed
HEENT: Normocephalic
Respiratory: Clear and Accessory Resp Muscle Use (mild )
Cardiac: S1/S2 and Regular Rhythm
Breast: Deferred by me
GI: Soft, Normal Bowel Sounds and Distended
Rectal: Deferred by Provider
Genito-urinary: No Costovertebral Tender
Musculoskeletal: No Clubbing, No Cyanosis and No Edema
Skin: Warm and Dry
Neuro: AO x 3
Hematologic/Lymphatic: No Lymphadenopathy
Psych: Calm
Impression / Plan
-
SOB - acute, multifactorial.
- agree with diuresis Bumex 3mg IV BID and monitor.
- continue COPD inhalers.
CAD - stable.
- s/p CABG (LOGAN to LAD, SVG to RPDA), patent on cardiac catheterization 03/22/24.
- continue medical therapy, aspirin, carvedilol, atorvastatin.
ICMO/HFrEF - acute.
- dry weight at home has been 189-191 lbs. maybe need to pick a new dry weight.
- agree with IV diuresis Bumex 3mg BID.
- LVEDP/PCWP = 20/21 mmHg on invasive evaluation. While this is moderately elevated, it is likely appropriate for an LVEF of 30-35%.
- GDMT as hemodynamics will tolerate (carvedilol). Limited role of ACEI/ARB/ARNi/SGLT2i given CKD3b.
- Primary prevention ICD in place.
Paroxysmal Afib - stable in NSR.
- continue carvedilol.
- CHADS2-Vasc = 5 (CHF, HTN, Age x2, Vascular Disease).
- continue Pradaxa.
CKD - stage 3b.
- monitor closely with diuresis.
Bicuspid AV with severe and dilated ascending aorta - s/p bioprosthetic SAVR (#27 Braden 2800) and aortic root replacement (#30 [employer] [place] tube graft).
- stable on recent echocardiogram.
COPD - continue home bronchodilators.
- per hospitalist.
Data Reviewed
-
EKG: Tracing Personally Visualized and interpreted (undetermined rhythm, RBBB)
Radiology: Image Personally Visualized and interpreted (mild CHF )
Medical Tests (Nuc Med, Echo etc): Report Reviewed by me (Echo 03/20/24 EF 30-35%, severely reduced LV systolic function, global hypokinesis with akinesis of basal inferior wall, mild MR, normally functioning bio AVR with mean gradient 5mmHg, moderate
TR, PASP 38 mmHg.)
Labs: Labs Reviewed by me
Old Records: Reviewed
[2024-06-18] MEDS: PRADAXA 75 MG PO ×2 (09:40→21:44)
[2024-06-18] MEDS: KCL ELIXIR 40 MEQ PO (09:42)
--- NOTE | 2024-06-18 13:45 | W.PN.UPDATE ---
Update Note
Progress Note Update
Patient with obvious acute HFrEF
Start Bumex 3mg IV BID, appreciate cards recs
[2024-06-18] MEDS: BUMEX 3 MG IV (16:37)
[2024-06-18] MEDS: LIPITOR 40 MG PO (21:57)
[2024-06-18] MEDS: NEURONTIN 600 MG PO (21:58)
[2024-06-19 03:00] VITALS: BP 112/59
[2024-06-19 06:00] VITALS: BMI 24.7
[2024-06-19 07:00] VITALS: BP 117/63
[2024-06-19] MEDS: SPIRIVA RESPIMAT 2.5 MCG 2 PUFF INH (07:44)
[2024-06-19] MEDS: SYMBICORT 160/4.5 MCG INHALER 2 PUFF INH (07:44)
[2024-06-19 08:19] LABS: Blood Urea Nitrogen 37 mg/dl (9-20); Calcium 10.4 mg/dl (8.4-10.2); Carbon Dioxide 28 mmol/L (22-30); Chloride 100 mmol/L (98-107); Estimated Creatinine Clearance 28 ml/min; Glucose 150 mg/dl (70-99); Potassium 3.8 mmol/L (3.5-5.1); Sodium 139 mmol/L (135-145); eGFR 26.94
[2024-06-19] MEDS: PRADAXA 75 MG PO ×2 (08:43→19:54)
[2024-06-19] MEDS: PROTONIX 40 MG PO ×2 (08:44→19:54)
[2024-06-19] MEDS: VITAMIN B-6 50 MG PO (08:44)
[2024-06-19] MEDS: KCL 20 MEQ PO ×2 (08:44→19:54)
[2024-06-19] MEDS: NEURONTIN 300 MG PO (08:46)
[2024-06-19] MEDS: BUMEX 3 MG IV ×2 (08:49→16:01)
[2024-06-19] MEDS: COREG 3.125 MG PO ×2 (08:49→19:54)
[2024-06-19 11:00] VITALS: BP 129/68
--- NOTE | 2024-06-19 12:35 | W.PN.HOSP.TC ---
Today's Communication/Plan
-
cont iv diuretics for today
anticipate dc within 24-48 hours
Assessment / Plan
Assessment / Plan
Physical Exam
General: Well Developed
HEENT: Normocephalic
Respiratory: Clear and Accessory Resp Muscle Use (mild )
Cardiac: S1/S2 and Regular Rhythm
Breast: Deferred by me
GI: Soft, Normal Bowel Sounds and Distended
Rectal: Deferred by Provider
Genito-urinary: No Costovertebral Tender
Musculoskeletal: No Clubbing, No Cyanosis and No Edema
Skin: Warm and Dry
Neuro: AO x 3
Hematologic/Lymphatic: No Lymphadenopathy
Psych: Calm
#SOB
#Acute on Chronic HFrEF
-Cont IV Bumex for today, mayneed adjusted diuretic regimen on dc
-improving sob
-monitor bmp/Is&Os
-GDMT
-Cards recs
#CAD/Elevated troponin - Trop 0.08, denies cp. ECG is non-ischemic. Coronary angio is non-obstructive in March. Echo at the time was unchanged, EF 30%, hypokinesis, normal functioning bioprosthetic valve and mild pulmonary pressure elevation
-Non ischemic Myocardial Injury 2/2 to acute on chronic HFrEF
- continue pradaxa
#AFIB on Pradaxa
- continue coreg
- continue pradaxa
#HLD - statin
#GERD - PPI
DVT PPX - on pradaxa
Code status - Full Code
Anticipated Discharge: 24 - 48 hours
Subjective/Interval History
-
Date of Service: June 19, 2024
feels better today, able to lie more flat
Objective Data
-
Labs:
Laboratory Results
06/19/24
06:40
Sodium 139
Potassium 3.8
Chloride 100
Carbon Dioxide 28
BUN 37 H
Creatinine 2.4 H
Glucose 150 H
Calcium 10.4 H
Vital Signs:
Vital Signs
Temp Pulse Resp BP Pulse Ox
97.6 F 78 18 129/68 94
06/19/24 11:00 06/19/24 11:00 06/19/24 11:00 06/19/24 11:00 06/19/24 11:00
I&O
06/18/24 06/19/24 06/20/24
06:59 06:59 06:59
Intake Total 240 / 240 960 / 960 240 / 240
Output Total 250 / 250 895 / 895
Balance - 65 / 65 240 / 240
Review of Systems
-
History Source: Patient
All other systems: Not reviewed unless documented
Data Reviewed
-
Labs: Labs Reviewed by me
--- NOTE | 2024-06-19 13:34 | W.PN.CD ---
Today's Communication / Plan
-
cont bumex 3mg IV bid
-metolazone 5mg prior to PM dose today
Impression / Plan
-
ICM/HFrEF - acute.
- severe, requiring hospitalization with IV diuresis, and close monitoring of labs/tele
- echo 03/2024: EF 30-35%
- dry weight at home has been 86 kg; likely need to reset dry weight
- cont coreg
- Primary prevention ICD in place.
- GDMT has been limited by renal function
- cont bumex 3mg IV bid
-metolazone 5mg prior to PM dose today
CAD - stable.
- s/p CABG (LOGAN to LAD, SVG to RPDA), patent on cardiac catheterization 03/22/24.
- continue medical therapy, aspirin, carvedilol, atorvastatin.
Paroxysmal Afib - stable in NSR.
- continue carvedilol.
- CHADS2-Vasc = 5 (CHF, HTN, Age x2, Vascular Disease).
- continue Pradaxa.
CKD - stage 3b/4
- monitor closely with diuresis.
Bicuspid AV with severe and dilated ascending aorta - s/p bioprosthetic SAVR (#27 Braden 2800) and aortic root replacement (#30 [employer] [place] tube graft).
- stable on recent echocardiogram.
COPD - continue home bronchodilators.
- per hospitalist.
Physical Exam
Vital Signs/Labs
Vital Signs
Temp Pulse Resp BP Pulse Ox
97.6 F 78 18 129/68 94
06/19/24 11:00 06/19/24 11:00 06/19/24 11:00 06/19/24 11:00 06/19/24 11:00
06/18/24 06/19/24 06/20/24
06:59 06:59 06:59
Actual Weight 86.5 kg 82.639 kg
06/18/24 05:11
06/19/24 06:40
Magnesium 2.0 mg/dl (1.6-2.3) 06/18/24 05:11
06/18/24
00:26
Psj-Q-Atxuhnygxmb Pept 4660
LAB Results
06/18/24 06/18/24 06/18/24
00: 05:11 12:59
Troponin I 0.088 H* 0.090 H* 0.080 H*
Physical Exam
Constitutional: No acute distress and Comfortable
EENT: Moist mucous membranes
Cardiovascular: Rhythm & rate is regular, Pedal edema is absent, JVD present and Systolic murmur present
Respiratory: Respiratory effort normal and Lungs clear to auscul.
Neuro/Psych: AO x 3
Data Reviewed
-
Date of Service: June 19, 2024
EKG: Other (Tele: SR, V pacing)
Labs: Labs Reviewed by me
--- NOTE | 2024-06-19 14:38 | CM ---
Initial assessment completed. Patient admitted for shortness of breath. No O2 at home. Currently on room air
Patient resides w/ spouse in a 2STH- 6 steps to enter. Patient uses walking sticks to ambulate. Independent w/ ADLs. [facility]. [facility] past.
Address, point of contact and insurance verified
PCP: Patric Riley
Pharmacy: [facility]
Plan: Home, no needs likely
[2024-06-19 15:00] VITALS: BP 106/74
[2024-06-19] MEDS: ZAROXOLYN 5 MG PO (15:29)
[2024-06-19 19:29] VITALS: BP 116/76
--- NOTE | 2024-06-19 19:30 | TRANSFER ---
pt transferred by this RN to 321 in hospital bed on monitors. report provided to Marlin Francis. pt hooked up to floors' ext js developer. vitals obtained and documented.
--- NOTE | 2024-06-19 19:35 | PTCARENOTE ---
Pt transferred from [address] to 3 [address]. Pt oriented to room 321, able to make needs known. Tele #17. AAOx3, call erazo within reach. Care ongoing.
[2024-06-19] MEDS: LIPITOR 40 MG PO (21:14)
[2024-06-19] MEDS: NEURONTIN 600 MG PO (21:15)
[2024-06-19] MEDS: TYLENOL 650 MG PO (22:23)
[2024-06-19 23:27] VITALS: BP 132/71
[2024-06-20 03:38] VITALS: BP 117/69
[2024-06-20 06:00] VITALS: BMI 24.6
[2024-06-20] MEDS: PULMICORT 0.5 MG INH (07:37)
[2024-06-20] MEDS: KCL 20 MEQ PO ×2 (07:40→19:02)
[2024-06-20] MEDS: VITAMIN B-6 50 MG PO (07:41)
[2024-06-20] MEDS: NEURONTIN 300 MG PO (07:41)
[2024-06-20] MEDS: PRADAXA 75 MG PO ×2 (07:41→19:02)
[2024-06-20] MEDS: PROTONIX 40 MG PO ×2 (07:41→19:02)
[2024-06-20 07:53] VITALS: BP 110/63
[2024-06-20] MEDS: BUMEX 3 MG IV ×2 (07:55→16:23)
[2024-06-20] MEDS: COREG 3.125 MG PO ×2 (07:55→19:04)
[2024-06-20 08:11] LABS: Hematocrit 38.5 % (39.0-52.0); Mean Corp Hgb Conc. 33.8 g/dL (33.0-37.0); Mean Corpuscular Hgb 28.8 pg (27.0-31.0); Mean Corpuscular Volume 85.2 fL (80.0-94.0); Mean Platelet Volume 10.6 fL (7.4-10.4); Platelet Count 238 10^3/uL (130-400); Red Blood Cell Count 4.52 10^6/uL (4.70-6.10); Red Cell Dist. Width 16.7 % (11.5-14.5); White Blood Cell Count 12.4 10^3/uL (4.8-10.8)
[2024-06-20 08:47] LABS: Blood Urea Nitrogen 51 mg/dl (9-20); Calcium 9.9 mg/dl (8.4-10.2); Carbon Dioxide 31 mmol/L (22-30); Chloride 98 mmol/L (98-107); Estimated Creatinine Clearance 26 ml/min; Glucose 125 mg/dl (70-99); Sodium 139 mmol/L (135-145); eGFR 24.48
[2024-06-20 08:53] LABS: Potassium 3.4 mmol/L (3.5-5.1)
[2024-06-20 10:58] VITALS: BMI 24.7
[2024-06-20 11:40] VITALS: BP 116/79
--- NOTE | 2024-06-20 13:00 | W.PN.CD ---
Today's Communication / Plan
-
cont bumex 3mg IV bid
-metolazone 5mg prior to PM dose today
RHC tomorrow to guide diuresis
Impression / Plan
-
ICM/HFrEF - acute.
- severe, requiring hospitalization with IV diuresis, and close monitoring of labs/tele
- echo 03/2024: EF 30-35%
- dry weight at home has been 86 kg; likely need to reset dry weight
- cont coreg
- Primary prevention ICD in place.
- GDMT has been limited by renal function
- cont bumex 3mg IV bid
-metolazone 5mg prior to PM dose today
-RHC tomorrow to guide diuresis
CAD - stable.
- s/p CABG (LOGAN to LAD, SVG to RPDA), patent on cardiac catheterization 03/22/24.
- continue medical therapy, aspirin, carvedilol, atorvastatin.
Paroxysmal Afib - stable in NSR.
- continue carvedilol.
- CHADS2-Vasc = 5 (CHF, HTN, Age x2, Vascular Disease).
- continue Pradaxa.
CKD - stage 3b/4
- monitor closely with diuresis.
Bicuspid AV with severe and dilated ascending aorta - s/p bioprosthetic SAVR (#27 Braden 2800) and aortic root replacement (#30 [employer] [place] tube graft).
- stable on recent echocardiogram.
COPD - continue home bronchodilators.
- per hospitalist.
Physical Exam
Vital Signs/Labs
Vital Signs
Temp Pulse Resp BP Pulse Ox
97.5 F 70 20 116/79 94
06/20/24 11:40 06/20/24 11:40 06/20/24 11:40 06/20/24 11:40 06/20/24 11:40
06/19/24 06/20/2406/21/25
06:59 06:59 06:59
Actual Weight 82.639 kg 82.146 kg 82.418 kg
06/20/24 07:10
06/20/24 07:10
Magnesium 2.0 mg/dl (1.6-2.3) 06/18/24 05:11
06/18/24
00:26
Thg-A-Bnqitejtmov Pept 4660
LAB Results
06/18/24 06/18/24 06/18/24
00:26 05:11 12:59
Troponin I 0.088 H* 0.090 H* 0.080 H*
Physical Exam
Constitutional: No acute distress
EENT: Moist mucous membranes
Cardiovascular: Pedal edema is absent, Rhythm/rate is irregular, JVD present and Systolic murmur present
Respiratory: Respiratory effort normal and Lungs clear to auscul.
Neuro/Psych: AO x 3
Data Reviewed
-
Date of Service: June 20, 2024
EKG: Other (Tele: intermittent V pacing, frequent ventricular ectopy)
Labs: Labs Reviewed by me
--- NOTE | 2024-06-20 13:28 | W.PN.HOSP.TC ---
Today's Communication/Plan
-
Bumex, Metolazone
K repletion
RHC tomorrow
Assessment / Plan
Assessment / Plan
Physical Exam
General: Well Developed
HEENT: Normocephalic
Respiratory: Clear and Accessory Resp Muscle Use (mild )
Cardiac: S1/S2 and Regular Rhythm
Breast: Deferred by me
GI: Soft, Normal Bowel Sounds and Distended
Rectal: Deferred by Provider
Genito-urinary: No Costovertebral Tender
Musculoskeletal: No Clubbing, No Cyanosis and No Edema
Skin: Warm and Dry
Neuro: AO x 3
Hematologic/Lymphatic: No Lymphadenopathy
Psych: Calm
#SOB
#Acute on Chronic HFrEF
-Cont IV Bumex for today, metolazone - may need adjusted diuretic regimen on dc
-improving sob
-monitor bmp/Is&Os
-GDMT
-Cards recs
-RHC tomorrow
#CAD/Elevated troponin - Trop 0.08, denies cp. ECG is non-ischemic. Coronary angio is non-obstructive in March. Echo at the time was unchanged, EF 30%, hypokinesis, normal functioning bioprosthetic valve and mild pulmonary pressure elevation
-Non ischemic Myocardial Injury 2/2 to acute on chronic HFrEF
- continue pradaxa
#Hypokalemia
-monitor and replete
#AFIB on Pradaxa
- continue coreg
- continue pradaxa
#HLD - statin
#GERD - PPI
DVT PPX - on pradaxa
Code status - Full Code
Anticipated Discharge: 24 - 48 hours
Subjective/Interval History
-
Date of Service: June 20, 2024
not much change from yesterday
Objective Data
-
Labs:
Laboratory Results
06/20/24
07:10
WBC 12.4 H
Hgb 13.0
Hct 38.5 L
Plt Count 238
Sodium 139
Potassium 3.4 L
Chloride 98
Carbon Dioxide 31 H
BUN 51 H
Creatinine 2.6 H
Glucose 125 H
Calcium 9.9
Vital Signs:
Vital Signs
Temp Pulse Resp BP Pulse Ox
97.5 F 70 20 116/79 94
06/20/24 11:40 06/20/24 11:40 06/20/24 11:40 06/20/24 11:40 06/20/24 11:40
I&O
06/19/24 06/20/24 06/21/24
06:59 06:59 06:59
Intake Total 960 / 960 820 / 820
Output Total 895 / 895 660 / 660
Balance 65 / 65 160 / 160
Review of Systems
-
History Source: Patient
All other systems: Not reviewed unless documented
Physical Exam
-
General: No Apparent Distress
Data Reviewed
-
Labs: Labs Reviewed by me
[2024-06-20] MEDS: KCL ELIXIR 40 MEQ PO (13:41)
[2024-06-20] MEDS: ZAROXOLYN 5 MG PO (15:48)
[2024-06-20 15:55] VITALS: BP 127/67
[2024-06-20 19:12] VITALS: BP 116/71
[2024-06-20] MEDS: LIPITOR 40 MG PO (21:32)
[2024-06-20] MEDS: NEURONTIN 600 MG PO (21:32)
[2024-06-20 23:08] VITALS: BP 108/67
[2024-06-20] MEDS: TYLENOL 650 MG PO (23:50)
[2024-06-21 06:00] VITALS: BMI 24.4
[2024-06-21 06:52] LABS: Hematocrit 41.9 % (39.0-52.0); Hemoglobin 14.3 g/dL (13.0-18.0); Mean Corp Hgb Conc. 34.1 g/dL (33.0-37.0); Mean Corpuscular Hgb 28.8 pg (27.0-31.0); Mean Corpuscular Volume 84.3 fL (80.0-94.0); Mean Platelet Volume 10.4 fL (7.4-10.4); Platelet Count 252 10^3/uL (130-400); Red Blood Cell Count 4.97 10^6/uL (4.70-6.10); Red Cell Dist. Width 16.3 % (11.5-14.5); White Blood Cell Count 11.6 10^3/uL (4.8-10.8)
[2024-06-21 07:00] VITALS: BP 131/69
[2024-06-21 07:16] LABS: Blood Urea Nitrogen 61 mg/dl (9-20); Calcium 10.1 mg/dl (8.4-10.2); Carbon Dioxide 30 mmol/L (22-30); Chloride 94 mmol/L (98-107); Estimated Creatinine Clearance 26 ml/min; Glucose 130 mg/dl (70-99); Potassium 3.2 mmol/L (3.5-5.1); Sodium 139 mmol/L (135-145); eGFR 24.48
[2024-06-21] MEDS: SYMBICORT 160/4.5 MCG INHALER 2 PUFF INH (07:19)
[2024-06-21] MEDS: SPIRIVA RESPIMAT 2.5 MCG 2 PUFF INH (07:21)
[2024-06-21] MEDS: BUMEX 3 MG IV ×2 (08:15→16:52)
[2024-06-21] MEDS: KCL 20 MEQ PO ×2 (08:15→20:27)
[2024-06-21] MEDS: PROTONIX 40 MG PO ×2 (08:15→20:28)
[2024-06-21] MEDS: VITAMIN B-6 50 MG PO (08:15)
[2024-06-21] MEDS: PRADAXA 75 MG PO ×2 (08:15→20:27)
[2024-06-21] MEDS: NEURONTIN 300 MG PO (08:15)
[2024-06-21] MEDS: COREG 3.125 MG PO ×2 (08:16→20:28)
--- NOTE | 2024-06-21 08:18 | W.PN.HOSP.TC ---
Addendum entered and electronically signed by Brad King MD 06/21/24 15:12:
RACHELE on CKD4
Original Note:
Today's Communication/Plan
-
see plan
Assessment / Plan
Assessment / Plan
Gen: NAD, Awake and alert
Eyes: EOMI, PERRLA, no scleral icterus.
Neck: supple.
CV: RRR, +S1/S2, no m/r/g.
Resp: CTAB anteriorly, no rales, wheezes, or rhonchi.
Abd: +BS, soft, NT, ND
Skin: No rashes.
Neuro: CN 2-12 intact, non-focal.
Psych: Normal mood and affect.
Acute on Chronic HFrEF/ICM:
-cont IV Bumex, daily wts, I/Os
-s/p Zaroxolyn
-cont Coreg
-RHC today
-acute nonischemic myocardial Injury due to acute on chronic HFrEF
Other problems:
PAF: cont Pradaxa
CAD: Cont Coreg/statin
Hypokalemia: IV K
CKD4
Bicuspid AV with severe and dilated ascending aorta - s/p bioprosthetic SAVR (#27 Braden 2800) and aortic root replacement (#30 Hemashield [place] tube graft)
COPD: cont Symbicort/Spiriva
HLD: cont statin
GERD: cont PPI
FULL/Pradaxa
Anticipated Discharge: 24 - 48 hours
Subjective/Interval History
-
Date of Service: June 21, 2024
Denies CP/SOB.
Objective Data
-
Labs:
Laboratory Results
06/21/24
06:21
WBC 11.6 H
Hgb 14.3
Hct 41.9
Plt Count 252
Sodium 139
Potassium 3.2 L
Chloride 94 L
Carbon Dioxide 30
BUN 61 H
Creatinine 2.6 H
Glucose 130 H
Calcium 10.1
Vital Signs:
Vital Signs
Temp Pulse Resp BP Pulse Ox
97.5 F 56 16 108/67 95
06/20/24 23:08 06/21/24 07:27 06/21/24 07:27 06/20/24 23:08 06/21/24 07:27
I&O
06/20/24 06/21/24 06/22/24
06:59 06:59 06:59
Intake Total 820 / 820 1320 / 1320 240 / 240
Output Total 660 / 660 740 / 740 925 / 925
Balance 160 / 160 580 / 580 -685 / -685
[2024-06-21] MEDS: KCL 270 MEQ IV (09:47)
--- NOTE | 2024-06-21 12:23 | PN.CDI ---
CDI
- -
CDI:
Physician Documentation Request
Admit Date: 06/18/24 02:46
Dear Doctor Fernando,
Clinical Indicators:
Patient admitted with acute on chronic HFrEF; PM includes CKD 4.
06/18 Bumex increased to 3 mg IV bid.
06/19 Metolazone increased to 5 mg po daily.
Cr/GFR trend:
06/18/24 06/18/24 06/20/24
00:26 05:11 07:10
Creatinine 2.3 H 2.3 H 2.6 H
eGFR 28.35 28.35 24.48
Please clarify which of the following accurately represents the patient's renal status:
RACHELE on CKD 4
CKD 4 with rise in creatinine only
Other, please specify
Criteria for RACHELE*
1 Increase in serum creatinine by > or = to 0.3 mg/dL (> or = to 26.5 micromol/L) within 48 hours, OR
2 Increase in serum creatinine to > or = to 1.5 times baseline, which is known or presumed to have occurred within 7 days, OR
3 Urine volume < 0.5 nL/kg/hour for six hours
Stages of Chronic Kidney Disease*
Level Description GFR
G1 Normal or High >90
G2 Mildly decreased 60-89
G3a Mildly to moderately decreased 45-59
G3b Moderately to severely decreased 30-44
G4 Severely decreased 15-29
G5 Kidney failure <15
Use of terms such as suspected, likely, concern for, or probable (associated with a specific diagnosis that is being evaluated, monitored, or treated as if it exists) are acceptable and can be coded in the inpatient setting, when documented at the
time of discharge.
Thank you,
WOJCIECH Murdock RN
CDI Specialist
available via tiger text
Please use your independent medical judgment in providing your response.
*Source: Kidney Disease: Improving Global Outcomes (KDIGO) 2012
[2024-06-21 15:05] VITALS: BP 123/71
--- NOTE | 2024-06-21 15:46 | VATNOTE ---
VAT rounds: during routine assessment it was discovered that IV was red, painful, and leaking. Potassium chloride infusing. Treatment of KCl extravasation reviewed; attempted to aspirate any fluid from the IV before removing and heat applied to
infiltrated area of arm. Area of infiltration marked with skin marker, new IV site established and KCl infusion continued through new IV site. Will continue to monitor.
--- NOTE | 2024-06-21 18:17 | ITS.CL.PN ---
Material Lister - Procedure Note
Procedure
Procedure Note:
CARDIAC CATHETERIZATION REPORT
Date of Procedure: 06/21/2024
Referring: Dr. Cade Baig MD, PhD
Indication: Heart failure, cardiorenal syndrome
PROCEDURE: right heart catheterization
ACCESS: 5F right antecubital vein (closure: manual hemostasis)
CATHETERS: 5F [place]
HEMODYNAMIC DATA
SBP 133/71 (mean 97) mmHg
RA 6 mmHg
RV 29/6 (EDP 8) mmHg
PA 30/14 (mean 20) mmHg
PCWP 8 mmHg
SaO2 99.0%
SvO2 56.7%
Hb 14.5 g/dL
CO/CI 3.05/1.50 L/min/m2
SVR 2386 dsc*-5
PVR 3.9 Wood units
CONCLUSION: Normal biventricular filling pressures (probably low given his degree of cardiomyopathy), normal pulmonary artery pressure, and severely reduced cardiac index in the setting of high SVR.
RECOMMENDATIONS:
1. Hold diuresis and adjust to as needed to achieve euvolemia as patient appears to be at current dry weight.
2. Start afterload reduction with hydralazine and isosorbide dinitrate titrated for MAP goal 65-75.
3. Consideration for outpatient consultation with palliative care given limited options for managing end-stage cardiomyopathy.
Copy to: Dr. Amina Snow MD (staff air defense officer); Dr. Patric Riley MD (PCP)
Signed: Edi Ac MD, PhD
[2024-06-21 18:39] VITALS: BP 123/76
[2024-06-21] MEDS: TYLENOL 650 MG PO (20:28)
[2024-06-21] MEDS: LIPITOR 40 MG PO (22:31)
[2024-06-21] MEDS: APRESOLINE 20 MG PO (22:31)
[2024-06-21] MEDS: NEURONTIN 600 MG PO (22:32)
[2024-06-21] MEDS: ISORDIL 10 MG PO (22:32)
[2024-06-21 23:02] VITALS: BP 122/70
[2024-06-22 06:56] LABS: Hematocrit 42.1 % (39.0-52.0); Hemoglobin 14.3 g/dL (13.0-18.0); Mean Corpuscular Hgb 28.7 pg (27.0-31.0); Mean Corpuscular Volume 84.5 fL (80.0-94.0); Mean Platelet Volume 10.7 fL (7.4-10.4); Platelet Count 252 10^3/uL (130-400); Red Blood Cell Count 4.98 10^6/uL (4.70-6.10); Red Cell Dist. Width 16.1 % (11.5-14.5); White Blood Cell Count 12.7 10^3/uL (4.8-10.8)
[2024-06-22] MEDS: PRADAXA 75 MG PO (08:00)
[2024-06-22] MEDS: PROTONIX 40 MG PO (08:00)
[2024-06-22] MEDS: NEURONTIN 300 MG PO (08:00)
[2024-06-22] MEDS: KCL 20 MEQ PO (08:00)
[2024-06-22] MEDS: VITAMIN B-6 50 MG PO (08:00)
[2024-06-22] MEDS: COREG 3.125 MG PO (08:02)
[2024-06-22] MEDS: APRESOLINE 20 MG PO (08:02)
[2024-06-22] MEDS: ISORDIL 10 MG PO (08:03)
[2024-06-22 08:10] VITALS: BP 117/77
[2024-06-22 08:13] VITALS: BMI 24.2
[2024-06-22] MEDS: TYLENOL 650 MG PO (09:03)
--- NOTE | 2024-06-22 09:27 | W.PN.HOSP.TC ---
Addendum entered and electronically signed by Brad King MD 06/22/24 10:55:
Total time spent on d/c = 35 min. This included today's physical exam, progress note, review of laboratory and diagnostic data, preparation of discharge documents and prescriptions, and discussions about the pt's hospital course and discharge plan
with the patient and other medical claims analyst involved in the patient's care.
Original Note:
Today's Communication/Plan
-
d/c
Assessment / Plan
Assessment / Plan
Gen: NAD, Awake and alert
Eyes: EOMI, PERRLA, no scleral icterus.
Neck: supple.
CV: remains RRR, +S1/S2, no m/r/g.
Resp: CTAB, no rales, wheezes, or rhonchi.
Abd: remains +BS, soft, NT, ND
Skin: No rashes.
Neuro: CN 2-12 intact, non-focal.
Psych: Normal mood and affect.
Acute on Chronic HFrEF/ICM:
-s/p IV Bumex and Zaroxolyn, daily wts, I/Os (goal net even)
-cont Coreg
-RHC 06/21/24: normal filling pressures, CI 1.5, high SVR. Isordil and Hydralazine started by cardiology for afterload reduction.
-acute nonischemic myocardial Injury due to acute on chronic HFrEF
-discussed with Dr. Spence
Other problems:
PAF: cont Pradaxa
CAD: Cont Coreg/statin
Hypokalemia: s/p IV K, check AM K
CKD4
Bicuspid AV with severe and dilated ascending aorta - s/p bioprosthetic SAVR (#27 Braden 2800) and aortic root replacement (#30 Hemashield [place] tube graft)
COPD: cont Symbicort/Spiriva
HLD: cont statin
GERD: cont PPI
FULL/Pradaxa
Medically cleared for d/c today. Case management aware.
Anticipated Discharge: Today
Subjective/Interval History
-
Date of Service: June 22, 2024
Pt states he feels SOB when he sits up.
Objective Data
-
Labs:
Laboratory Results
06/22/24
06:00
WBC 12.7 H
Hgb 14.3
Hct 42.1
Plt Count 252
Vital Signs:
Vital Signs
Temp Pulse Resp BP Pulse Ox
97.3 F 72 16 117/77 95
06/22/24 08:10 06/22/24 08:10 06/22/24 08:10 06/22/24 08:10 06/22/24 08:10
I&O
06/21/24 06/22/24 06/23/24
06:59 06:59 06:59
Intake Total 1320 / 1320 1080 / 1080
Output Total 740 / 740 2500 / 2500
Balance 580 / 580 -1420 / -1420
--- NOTE | 2024-06-22 09:39 | W.PN.CD ---
Today's Communication / Plan
-
resume bumex 3mg daily tomorrow
dry weight is 179.5lbs
d/c planning ok for today from a cardiology perspective
Impression / Plan
-
Primary Cards: Gwendolyn
ICM/HFrEF - acute.
- severe, requiring hospitalization with IV diuresis, and close monitoring of labs/tele
- echo 03/2024: EF 30-35%
- dry weigth is 179.5lbs.
-SVT was 2386--> Afterload reduction was added 06/21/24 with hydral/isosorbide dinitrate
- Primary prevention ICD in place.
- GDMT has been limited by renal function
-now on coreg, hydral and isosorbide
- typically on Bumex 3 BID on hold and weight is still down
-would recommend Bumex qd to start daily tomorrow with a second dose in the pm as needed for weight gain of 3lbs in a day or 5 lbs in 5 days
CAD - stable.
- s/p CABG (LOGAN to LAD, SVG to RPDA), patent on cardiac catheterization 03/22/24.
- continue medical therapy, aspirin, carvedilol, atorvastatin.
Paroxysmal Afib - stable in NSR.
- continue carvedilol.
- CHADS2-Vasc = 5 (CHF, HTN, Age x2, Vascular Disease).
- continue Pradaxa (Cr Cl 26)
CKD - stage 3b/4
- monitor closely with diuresis.
Bicuspid AV with severe and dilated ascending aorta - s/p bioprosthetic SAVR (#27 Braden 2800) and aortic root replacement (#30 Hemashield [place] tube graft).
- stable on recent echocardiogram.
COPD - continue home bronchodilators.
- per hospitalist.
Subjective:
he is feeling better this am felt more sob sitting up, then I sat him up and this resolved.
Data:
RHC 06/22/24
WT 179 lbs 6.4oz
HEMODYNAMIC DATA
SBP 133/71 (mean 97) mmHg
RA 6 mmHg
RV 29/6 (EDP 8) mmHg
PA 30/14 (mean 20) mmHg
PCWP 8 mmHg
SaO2 99.0%
SvO2 56.7%
Hb 14.5 g/dL
CO/CI 3.05/1.50 L/min/m2
SVR 2386 dsc*-5
PVR 3.9 Wood units
CONCLUSION: Normal biventricular filling pressures (probably low given his degree of cardiomyopathy), normal pulmonary artery pressure, and severely reduced cardiac index in the setting of high SVR.
RECOMMENDATIONS:
1. Hold diuresis and adjust to as needed to achieve euvolemia as patient appears to be at current dry weight.
2. Start afterload reduction with hydralazine and isosorbide dinitrate titrated for MAP goal 65-75.
3. Consideration for outpatient consultation with palliative care given limited options for managing end-stage cardiomyopathy.
Physical Exam
Vital Signs/Labs
Vital Signs
Temp Pulse Resp BP Pulse Ox
97.3 F 72 16 117/77 95
06/22/24 08:10 06/22/24 08:10 06/22/24 08:10 06/22/24 08:10 06/22/24 08:10
06/21/24 06/22/24 06/23/24
06:59 06:59 06:59
Actual Weight 179 lb 6.4 oz 178 lb 3 oz
06/22/24 06:00
06/21/24 06:21
Magnesium 2.0 mg/dl (1.6-2.3) 06/18/24 05:11
06/18/24
00:26
[id number] Pept 4660
Physical Exam
Constitutional: No acute distress
Cardiovascular: Rhythm & rate is regular, Pedal edema is absent, JVD pressure is normal, Systolic murmur absent and Diastolic murmur absent
Respiratory: Respiratory effort normal, Lungs clear to auscul., Wheeze Absent and Crackles Absent
Data Reviewed
-
Date of Service: June 22, 2024
[2024-06-22 11:06] LABS: Blood Urea Nitrogen 68 mg/dl (9-20); Calcium 10.3 mg/dl (8.4-10.2); Carbon Dioxide 31 mmol/L (22-30); Chloride 100 mmol/L (98-107); Estimated Creatinine Clearance 26 ml/min; Glucose 162 mg/dl (70-99); Potassium 3.5 mmol/L (3.5-5.1); Sodium 137 mmol/L (135-145); eGFR 24.48
--- NOTE | 2024-06-22 12:21 | CM ---
CM following re: discharge planning.
Reviewed pt's chart, met with pt and pt's spouse at bedside.
According to MD pt is medically stable to be discharged today. Both pt and his spouse requested to meet with MD to discuss discharge. MD is notified.
Both pt and his spouse stated that pt is known to [facility] and they requested VN. A referral to [facility] made earlier today. Pt's spouse stated she might bring the pt to cardiac rehab after the completion of VN services.
IMM reviewed, placed on chart, pt has a copy. Pt's spouse stated she will transport pt hoem.
Please fax discharge instructions to [facility] at [phone]
D/c plan: home with [facility] and family support. Spouse to transport.
--- NOTE | 2024-06-22 12:37 | VNURNOTE ---
Home Health Liaison met with patient and spouse at bedside to discuss [facility] nurse/therapy, visits, schedule and homebound status. Both are agreeable and understand that visits at home will be 2-3 x per week to assess and teach medical management.
Both are aware that [facility] will contact them for start of care in 1-2 days after discharge from . Spouse confirms that patient has a scale at home.
[facility] referral completed in [facility].
[2024-06-22 12:59] VITALS: BP 107/67
--- NOTE | 2024-06-22 14:20 | W.DCSUMMARY ---
Discharge Summary
Discharge Data
Date of Admission: 06/18/24
Date of Discharge: 06/22/24
-
Pending Results: No
Hospital Course
Primary diagnoses:
Acute on chronic heart failure with reduced ejection fraction
Secondary diagnoses:
Nonischemic myocardial injury due to acute on chronic heart failure with reduced ejection fraction
Paroxysmal atrial fibrillation
Ischemic cardiomyopathy
Coronary disease
Hypokalemia
Chronic kidney disease stage 4
Bicuspid AV with severe and dilated ascending aorta s/p bioprosthetic SAVR (#27 Braden 2800) and aortic root replacement (#30 Hemashield [place] tube graft)
Chronic obstructive pulmonary disease
Hyperlipidemia
Gastroesophageal reflux disease
Consultants:
Cardiology
Imaging:
CXR: No acute disease of the chest
Abd U/S: No abdominal ascites
Hospital course: 71-year-old male who presented with a chief complaint of shortness of breath as outlined in the H&P done on admission. proBNP was 4660. Patient was treated with IV Bumex and Zaroxolyn. His weight decreased approximately 6 kg.
With persistent symptoms he had a RHC 06/21/24 showing normal filling pressures, CI 1.5, high SVR. Isordil and Hydralazine started by cardiology for afterload reduction. His daily Bumex dose was decreased. His goal I/O is even. He was discharged
in medically stable condition.
Discharge Plan
-
Patient Disposition: Home (Routine Discharge)
Discharge Diagnosis/Procedures: Acute heart failure with preserved ejection fraction, procedure: Cardiac catheterization - 06/21/2024
Condition: Fair
Diet: 2 Gram Sodium and Restrict fluids to 48 oz
Activity: No strenuous activity
Driving Restrictions: Not until seen by your Dr
Bathing Restrictions: None
Blood Work: BMP, magnesium, CBC in 1 week, prescription from PCP
Specialty Instructions: Weigh Daily- Call MD for wt gain/loss 3 lbs overnight/5 lbs in 1 week
Instructions: *CBC Heart Failure Instructions
Stand Alone Forms: DC Instructions- Cath/EP Lab
Referrals:
Patric Riley MD [Active] - in less than 1 week
Diana Mendoza NP [Specified Professional Personl] - 07/08/24 9:40 am
Prescriptions:
New
isosorbide dinitrate 10 mg Tablet
10 mg PO TID Qty: 90 0RF
hydralazine 10 mg Tablet
20 mg PO TID Qty: 180 0RF
carvedilol 3.125 mg Tablet
3.125 mg PO Q12 Qty: 60 0RF
bumetanide 1 mg Tablet
3 mg PO DAILY Qty: 30 0RF
Continued
atorvastatin 40 MG tablet
40 mg PO HS
gabapentin 300 mg Capsule
600 mg PO HS
magnesium oxide 400 mg magnesium Tablet
400 mg PO Q48H
acetaminophen [Tylenol Extra Strength] 500 mg Tablet
1,000 mg PO Q6HPRN PRN (Reason: mild pain)
pyridoxine (vitamin B6) [Vitamin B-6] 50 mg Tablet
50 mg PO DAILY
albuterol sulfate 2.5 mg /3 mL (0.083 %) Solution For Nebulization
2.5 mg INHALATION R Q48H
Patient Comments:
12/08/23: Mix in nebulizer with budesonide and ipratropium.
ascorbic acid (vitamin C) [Vitamin C] 500 mg Tablet
500 mg PO DAILY
gabapentin 300 mg Capsule
300 mg PO DAILY
budesonide 0.5 mg/2 mL Suspension For Nebulization
0.5 mg INHALATION R Q48H
Patient Comments:
12/08/23: Mix in nebulizer with albuterol and ipratropium.
ipratropium bromide 0.02 % Solution
2.5 ml INHALATION R Q48H
Patient Comments:
12/08/23: Mix in nebulizer with albuterol and budesonide
Trelegy Ellipta 200-62.5-25 mcg Blister With Device
1 inh INHALATION R Q48H
dabigatran etexilate [Pradaxa] 75 mg Capsule
75 mg PO BID 30 Days Qty: 30 0RF
potassium chloride 20 mEq Tablet Extended Release
20 meq PO BID 30 Days Qty: 60 0RF
pantoprazole 40 mg Tablet,Delayed Release (Dr/Ec)
40 mg PO BID Qty: 60 0RF
carvedilol 3.125 mg Tablet
3.125 mg PO BID
Rx Instructions:
Patient has 6.25mg tablets and PCP directed to split to 1/2 each dose BID
Discontinued
bumetanide 1 mg tablet
3 mg PO BID
Rx Instructions:
Patient takes 1 in AM and 2 PM by 1600
Discharge Orders:
Discharge Patient (As Directed); Ordered 06/22/24
Ordered By: Brad King
Discharge Date and Time
Discharge Date/Time: 06/22/24 13:43
Print Language: ARMENIAN
== END 2024-06-22 13:43 | disposition home health service (06) | DRG 286 ==
LOC: 3 WEST ACU 02:46
PROVIDERS: Internal Medicine; Student in an Organized Health Care Education/Training Program; ADMITTING PHYSICIAN Internal Medicine; ATTENDING PHYSICIAN Internal Medicine; EMERGENCY PHYSICIAN Emergency Medicine; OTHER PHYSICIAN Internal Medicine
PROC: 4A023N6 Measurement of Cardiac Sampling and Pressure, Right Heart, Percutaneous Approach (ICD-10-PCS; 2024-06-21)
DX: I13.0 Hypertensive heart and chronic kidney disease with heart failure and stage 1 through stage 4 chronic kidney disease, or unspecified chronic kidney disease (principal); I50.23 Acute on chronic systolic (congestive) heart failure; I48.21 Permanent atrial fibrillation; N18.4 Chronic kidney disease, stage 4 (severe); N17.9 Acute kidney failure, unspecified; I5A Non-ischemic myocardial injury (non-traumatic); J44.9 Chronic obstructive pulmonary disease, unspecified; E89.0 Postprocedural hypothyroidism; I25.10 Atherosclerotic heart disease of native coronary artery without angina pectoris; E87.6 Hypokalemia; I25.5 Ischemic cardiomyopathy; E11.9 Type 2 diabetes mellitus without complications; I35.0 Nonrheumatic aortic (valve) stenosis; E78.00 Pure hypercholesterolemia, unspecified; H54.62 Unqualified visual loss, left eye, normal vision right eye; K21.9 Gastro-esophageal reflux disease without esophagitis; Q23.81 Bicuspid aortic valve; I25.2 Old myocardial infarction; Z86.73 Personal history of transient ischemic attack (TIA), and cerebral infarction without residual deficits; Z85.850 Personal history of malignant neoplasm of thyroid; Z85.118 Personal history of other malignant neoplasm of bronchus and lung; Z87.891 Personal history of nicotine dependence; Z95.1 Presence of aortocoronary bypass graft; Z90.49 Acquired absence of other specified parts of digestive tract; Z90.2 Acquired absence of lung [part of]; Z95.5 Presence of coronary angioplasty implant and graft; Z95.810 Presence of automatic (implantable) cardiac defibrillator; Z88.5 Allergy status to narcotic agent; Z88.0 Allergy status to penicillin; Z79.02 Long term (current) use of antithrombotics/antiplatelets; Z95.3 Presence of xenogenic heart valve; Z79.51 Long term (current) use of inhaled steroids; Z11.52 Encounter for screening for COVID-19
CPT/HCPCS: 71046; 76705; 80048; 80053; 81003; 81015; 82805; 83735; 83880; 84484; 85025; 85027; 87086; 87502; 87811; 93005; 93451; 94640; 94760; 96374; 99285; C1894

== ENCOUNTER 2024-06-26 16:36 | Inpatient (IN) | payer OTHER, SELFPAY ==
[2024-06-26] VITALS (8 sets, daily range): BP systolic 93–138; BP diastolic 55–95; BMI 23.9
[2024-06-26 13:12] LABS: % Basophils 0.6 % (0-2); % Eosinophils 0.8 % (0-6); % Immature Granulocytes 0.7 % (0-0.5); % Lymphocytes 8.6 % (20.5-51.1); % Monocytes 17.8 % (1.7-9.3); % Neutrophils 71.5 % (42.2-75.2); Absolute Basophils 0.1 10^3/uL (0-0.2); Absolute Eosinophils 0.1 10^3/uL (0-0.7); Absolute Immature Granulocytes 0.1 10^3/uL (0-0.05); Absolute Neutrophils 8.1 10^3/uL (1.4-6.5); Hematocrit 37.1 % (39.0-52.0); Mean Corpuscular Hgb 28.6 pg (27.0-31.0); Mean Corpuscular Volume 81.7 fL (80.0-94.0); Mean Platelet Volume 10.3 fL (7.4-10.4); Nucleated Red Blood Cells % 0 % (-); Platelet Count 232 10^3/uL (130-400); Red Blood Cell Count 4.54 10^6/uL (4.70-6.10); Red Cell Dist. Width 15.9 % (11.5-14.5); White Blood Cell Count 11.3 10^3/uL (4.8-10.8)
--- NOTE | 2024-06-26 13:31 | ED.GENMED ---
History of Present Illness
General
Chief Complaint: Breathing Problem
Time Seen by Provider: 06/26/24 13:30
History of Present Illness
History of Present Illness:
TIME OF INITIAL ENCOUNTER: 1:35 PM
HPI: The patient was admitted to the hospital for cardiac related issues and was diuresed. However since being discharged he overall has been worsening. He has been falling multiple times and at one point did strike his head but in a relatively
slow manner. He has not been sleeping well. Physical therapy saw him 2 days ago and he could not do anything with him other than lift his legs in bed. He reports chronic shortness of breath. He had medication adjusted last time he was here. The
patient did receive a shock yesterday for the first time and somebody from [facility] cardiology informed him that the heart rate was in the 180s and to go to the hospital if this were to happen again.
EXAM:
GENERAL: The patient is ill-appearing and appears generally weak and debilitated
HEENT: Dry oral mucosa
CARDIOVASCULAR: No murmurs, normal heart rate, regular rhythm, No chest wall tenderness
PULMONARY: Slightly coarse breath sounds
ABDOMEN: Soft with no peritoneal signs, no tenderness
NEUROLOGIC: Patient appears lethargic but can give some history
PSYCHIATRIC: Some limitation of insight and judgment
EXTREMITIES: Nontender, no edema, moves all extremities equally decreased
SKIN: Extensive areas of ecchymosis to the upper extremities
NUMBER AND COMPLEXITY OF PROBLEMS ADDRESSED AT THE ENCOUNTER
� Chronic conditions affecting care: COPD, A-fib, CHF, CAD, has defibrillator, EF 35%, lung cancer
� Acute Exacerbation and/or Progression of Chronic Illness: This is an acute problem
� Differential Diagnosis includes: Worsening heart failure, hypercapnia, progressive functional decline, pneumonia, intracranial hemorrhage very unlikely
AMOUNT AND/OR COMPLEXITY OF DATA TO BE REVIEWED AND ANALYZED
� I performed an independent evaluation of and my interpretation is:
EKG: V-paced rate of 71
CT: CT head personally reviewed�no acute traumatic abnormality
X-rays: Chest x-ray suggest COPD with no acute abnormality
Laboratory Studies: White count 11.3, hemoglobin normal, BUN 74, creatinine 3.1 which is higher than baseline, ABG does not show hypercapnic acidosis
Other:
� Review of other/old records: I reviewed records, the patient was here earlier in the week with HFrEF and 'nonischemic myocardial injury I due to acute on chronic heart failure with reduced ejection fraction'. The patient was
diuresed last admission with Bumex and Zaroxolyn and was started on Isordil and hydralazine.
� Clinical information was obtained by an independent historian: I spoke to family at bedside
� Prescriptions/Medications Considered but not given:
� Further testing considered but not performed:
RISK OF COMPLICATIONS AND/OR MORBIDITY OR MORTALITY OF PATIENT MANAGEMENT
� Social determinants of health affecting care: Lives at home, was recently hospitalized
� Discussion with other providers: Hospitalist for admission, Dr. Crawford
� Escalation of care including admission/observation vs risk of discharge considered: The patient is ill-appearing. He arrived hypotensive. With fluids he is improved from a vital sign standpoint. I do not feel he can safely
be discharged at this time.
ANY OTHER UPDATES:
Past History
Past History
ED Past Medical History: Arrthythmia (Atrial fib), CAD, Cancer (lung/Thyroid), CHF, COPD, CVA, HTN, Hypercholesterolemia, ID, Valvular disease and Other (sepsis, Headache over the left eye continually, Renal issues, Blind left eye, Ulcers)
ED Past Surgical History: Appendectomy, Cardiac (CABG, stents), Tonsilectomy, Urological (Bladder repair, ) and Other (Laparoscopic left inguinal hernia repair November 19, 2021, Left upper lobectomy, thyroidectomy)
Social History
Tobacco: Former smoker (Sneaking a few cigarettes according to .)
Alcohol: Daily (Wine 1)
Drug: None
Personal:
Living: with family
Employment: Retired
Family History
Family History: Other (Noncontributory)
Phy Exam
Physical Exam
Physical Exam:
See HPI
Scores
Heart Failure Risk
Heart Failure Risk Score: Not Applicable
Course
Orders/Labs/Results
Orders:
Orders
06/26/24 12:56
Electrocardiogram (*1) Urgent
Reason for Study: Shortness of Breath
EKG- Treatment ONCE
Cr Chest Portable [CR Chest Portable - 1 View] Urgent
Comment:
Reason For Exam: SOB
Reason Study Needs to be Portable: Patient Unstable
06/26/24 13:00
BNP [NT-proBNP] Urgent
Complete Blood Count/With Diff Urgent
Comprehensive Metabolic Panel Urgent
Troponin I Urgent
06/26/24 13:44
CT Head W/o Iv Contrast Urgent
Comment:
Reason For Exam: recurrent falls; head trauma
0.9% Sodium Chloride 500 ml [Nss] 500 ml IV BOLUS
06/26/24 13:45
Interrogate Pacemaker- Treatment ONCE
06/26/24 14:21
ABG [Arterial Blood Gas] Urgent
%Oxygen/Room Air: RA
06/26/24 16:15
Admit/Transfer Patient As Directed
Co-Sign Provider:
Level of Care: Inpatient admission
Assign to:: IVU
Physician / Group: ryne
Diagnosis: vfib
Reason for Hospitalization: vfib, hypotension, [place]
Expected length of stay greater than two midnights?: Yes
ELOS- Estimated Length of Stay in days: 2
I certify the patient meets the requirements for IP care: Yes
06/26/24 16:16
Code Status As Directed
Resuscitation Status: Full Code
PRN Pain Medication Management As Directed
May give lesser potent ordered pain med per pt: Yes
preference::
Protocol:: Medication orders for pain may be administered in a
manner that supports deferring to patient preference
when the pt is:
- Requesting an ordered lesser potent pain medication.
Least to most potent pain medications are defined
as: acetaminophen < NSAID < tramadol < opioids
(morphine, oxycodone, hydromorphone).
- Requesting a lesser dose of the same medication IF
ORDERED.
- Requesting a less intrusive route of administration
if both routes are prescribed by the provider (PO <
IV).
Abnormal Lab Results
06/26/24 06/26/24
13:00 14:21
WBC 11.3 H 10^3/uL
(4.8-10.8)
RBC 4.54 L 10^6/uL
(4.70-6.10)
Hct 37.1 L %
(39.0-52.0)
RDW 15.9 H %
(11.5-14.5)
Abs Immat Gran (auto) 0.1 H 10^3/uL
(0-0.05)
Absolute Neuts (auto) 8.1 H 10^3/uL
(1.4-6.5)
Absolute Lymphs (auto) 1.0 L 10^3/uL
(1.2-3.4)
Absolute Monos (auto) 2.0 H 10^3/uL
(0.1-0.6)
Immature Gran % 0.7 H %
(0-0.5)
Lymphocytes % 8.6 L %
(20.5-51.1)
Monocytes % 17.8 H %
(1.7-9.3)
pH 7.54 H
(7.35-7.45)
pCO2 34 L mmHg
(35-48)
pO2 64 L mmHg
(83-108)
HCO3 29.1 H mmol/L
(21-28)
Sodium 134 L mmol/L
(135-145)
BUN 74 H mg/dl
(9-20)
Creatinine 3.1 H mg/dL
(0.7-1.3)
Glucose 112 H mg/dl
(70-99)
Troponin I 0.142 H* ng/ml
06/26/24 13:00
06/26/24 13:00
Vital Signs
Initial and Last Documented VS:
Initial Vital Signs
Temp Pulse Resp BP Pulse Ox
36.4 C 75 20 97/68 96
06/26/24 12:57 06/26/24 12:57 06/26/24 12:57 06/26/24 12:57 06/26/24 12:57
Last Documented Vital Signs
Temp Pulse Resp BP Pulse Ox
36.4 C 65 15 107/66 94
06/26/24 12:57 06/26/24 14:45 06/26/24 14:45 06/26/24 14:00 06/26/24 14:00
*Critical Care Note
Total Time (30-74mins, 75-104mins- exclusive of procedures): Not Applicable
ED Attending Note
-
Portions of this chart may have been created with voice recognition software.� Occasional wrong word or��sound alike� substitutions may have occurred due to the inherent limitations of voice recognition software.
Discharge Plan
Departure
Patient Disposition: Admit
Date of Disposition: 06/26/24
Time of Disposition: 15:54
Presentation/result/management discussed w/ accepting MD/DO: Hospitalist
Discharge Problem:
Acute kidney injury superimposed on chronic kidney disease
Interventions
Interventions:
*Risk Screen - Suicide Last Done: 06/26/24 13:04
*General Assessment Last Done: 06/26/24 12:57
*ED- Fall Risk Assessment Last Done: 06/26/24 13:04
ED- Cardiac Assessment Last Done: 06/26/24 13:04
ED- Pulmonary Assessment Last Done: 06/26/24 13:04
[2024-06-26 13:36] LABS: ALT (SGPT) 16 U/L (0-50); AST (SGOT) 19 U/L (17-59); Albumin 3.9 g/dl (3.5-5.0); Alkaline Phosphatase 124 U/L (38-126); Blood Urea Nitrogen 74 mg/dl (9-20); Calcium 9.8 mg/dl (8.4-10.2); Carbon Dioxide 26 mmol/L (22-30); Chloride 99 mmol/L (98-107); Glucose 112 mg/dl (70-99); Potassium 3.5 mmol/L (3.5-5.1); Sodium 134 mmol/L (135-145); Total Protein 6.9 g/dl (6.3-8.2); eGFR 19.82
[2024-06-26 13:51] LABS: NT-proBNP 4560 pg/ml; Troponin I 0.142 ng/ml
[2024-06-26] MEDS: NSS 500 IV (14:10)
[2024-06-26 14:30] LABS: B.E. 6.5 mmol/L; HCO3 29.1 mmol/L (21-28); O2 Saturation % 95.8 % (94-98); PCO2 34 mmHg (35-48); PO2 64 mmHg (83-108); pH 7.54 (7.35-7.45)
--- NOTE | 2024-06-26 16:21 | HPS.HSE ---
Family Physician
-
Family Physician: * NONE
Chief Complaint
-
weakness
History of Present Illness
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
root replacement, CAD, CKD 4, COPD, hyperlipidemia, GERD, presenting for worsening status since recent admission. He has been falling multiple times and did hit his head once. Not been sleeping well. Therapy stopped 2 days ago and he could not
lift his legs in bed therefore could not participate. He has chronic shortness of breath and some cough. Patient did receive a shock yesterday for the first time and cardiology informed him that his heart rate was in the 180s and to go to the
hospital if this were to happen again. He denies any chest pain. Denies any dizziness or palpitations.
He denies smoking or alcohol use.
Medical History
Past Medical History
Past Medical History: Reports Other (chronic HFrEF/ischemic cardiomyopathy with ICD, paroxysmal atrial fibrillation on Pradaxa, bicuspid aortic valve with severe aortic stenosis and dilated ascending aorta status post bioprosthetic AVR, aortic root
replacement, CAD, CKD 4, COPD, hyperlipidemia, GERD)
Past Surgical History: Reports Other (Appendectomy, Cardiac (CABG, stents), Tonsilectomy, Urological (Bladder repair, ) and Other (Laparoscopic left inguinal hernia repair November 19, 2021, Left upper lobectomy, thyroidectomy))
Social History
Tobacco: Non-smoker
Alcohol: None
Drug: None
Family History
Family History: Not pertinent
Allergies / Home Medications
Allergies reflects when Allergies were last updated in [facility].
Home Medications with original date entered in [facility]
Allergy/Medication List:
Allergies
Allergy/AdvReac Type Severity Reaction Status Date / Time
codeine [Codeine] Allergy nausea Verified 06/26/24 12:57
vomiting
Penicillins Allergy Hives, Verified 06/26/24 12:57
swelling,
tolerated
ceftriaxone
Feb 2020
Home Medications
atorvastatin 40 mg tablet 40 mg PO HS High cholesterol 04/25/22
gabapentin 300 mg capsule 600 mg PO HS neuropatic pain 03/14/23
magnesium oxide 400 mg PO Q48H Electrolyte Repletion 03/14/23
acetaminophen 500 mg tablet (Tylenol Extra Strength) 1,000 mg PO Q6HPRN PRN mild pain 04/01/23
pyridoxine (vitamin B6) 50 mg tablet (Vitamin B-6) 50 mg PO DAILY Supplement 04/01/23
albuterol sulfate 2.5 mg/3 mL (0.083 %) solution for nebulization 2.5 mg inhalation R Q48H Lung/Breathing Issues 12/08/23
ascorbic acid (vitamin C) 500 mg tablet (Vitamin C) 500 mg PO DAILY Supplement 12/08/23
budesonide 0.5 mg/2 mL suspension for nebulization 0.5 mg inhalation R Q48H Lung/Breathing Issues 12/08/23
fluticasone fur. 200 mcg-umeclid 62.5 mcg-vilant 25 mcg inhalat.powder (Trelegy Ellipta) 1 inh inhalation R Q48H Lung/Breathing Issues 12/08/23
gabapentin 300 mg capsule 300 mg PO DAILY neuropathic pain 12/08/23
ipratropium bromide 0.02 % solution for inhalation 2.5 ml inhalation R Q48H Allergies 12/08/23
dabigatran etexilate 75 mg capsule (Pradaxa) 75 mg PO BID Blood clot prevention/tx 30 days #30 caps 12/16/23
pantoprazole 40 mg tablet,delayed release 40 mg PO BID Gastrointestinal issue #60 tabs 12/16/23
potassium chloride 20 mEq tablet,extended release 20 meq PO BID Electrolyte Repletion 30 days #60 tabs 12/16/23
carvedilol 3.125 mg tablet 3.125 mg PO BID Blood Pressure 06/18/24
bumetanide 1 mg tablet 3 mg (3 x 1 mg) PO DAILY #30 tabs 06/22/24
isosorbide dinitrate 10 mg tablet 10 mg PO TID #90 tabs 06/22/24
Review of Systems
-
History Source: Patient
A 12 point ROS was completed and negative except as noted: Yes
Constitutional: Reports No Symptoms
EENT: Reports No Symptoms
Respiratory: Reports See HPI
Cardiac: Reports See HPI
Abdomen/GI: Reports No Symptoms
: Reports No Symptoms
Musculoskeletal: Reports No Symptoms
Skin: Reports No Symptoms
Neurological: Reports No Symptoms
Endocrine: Reports No Symptoms
Hematologic/Lymphatic: Reports No Symptoms
Psych: Reports No Symptoms
Physical Exam
Vital Signs
Vital Signs
Temp Pulse Resp BP Pulse Ox
97.5 F 65 15 107/66 94
06/26/24 12:57 06/26/24 14:45 06/26/24 14:45 06/26/24 14:00 06/26/24 14:00
Physical Exam
General: Well Developed, Well Nourished and No Apparent Distress
HEENT: NormoCephalic, Moist mucous membranes and Atraumatic
Respiratory: Clear
Cardiac: S1/S2 and Regular Rhythm; No Murmur or Rub
GI: Soft, Non Tender, Non Distended and Normal Bowel Sounds; No Organomegaly
Rectal: Deferred by Provider
Musculoskeletal: No Clubbing, No Cyanosis and No Edema
Skin: No Rash
Neuro: Nonfocal/grossly intact
Laboratory Results
-
06/26/24 13:00
06/26/24 13:00
Laboratory Results
pH 7.54 (7.35-7.45) H 06/26/24 14:21
pCO2 34 mmHg (35-48) L 06/26/24 14:21
pO2 64 mmHg (83-108) L 06/26/24 14:21
HCO3 29.1 mmol/L (21-28) H 06/26/24 14:21
Total Bilirubin 1.0 mg/dl (0.2-1.3) 06/26/24 13:00
AST 19 U/L (17-59) 06/26/24 13:00
ALT 16 U/L (0-50) 06/26/24 13:00
Alkaline Phosphatase 124 U/L (38-126) 06/26/24 13:00
Troponin I 0.142 ng/ml H* 06/26/24 13:00
Data Reviewed
-
Lab Data: Labs Reviewed by me
Old Records: Reviewed
Impression/Plan
-
IMPRESSION:
PLAN:
# Hypotension/weakness likely from hypovolemia from new cardiac medications/beta-jade
- IV fluids given, hold further fluids
- Hold Bumex
# RACHELE on CKD 4 likely secondary to hypotension/Bumex
- IV fluids given, blood pressures improved so hold further fluids
- Hold Bumex and potassium
# Fall with head injury
- CT head shows no acute abnormality
# Nonischemic myocardial injury secondary to hypotension
- Troponin of 0.142, continue to trend
- EKG shows wide QRS rhythm, left bundle branch block which is old
# V-fib episode resulting in shock yesterday
- Patient received a shock which was V-fib yesterday as per interrogation report
Chronic HFrEF/ischemic cardiomyopathy with ICD
-Chest x-ray shows no acute cardiopulmonary process
- Hold Bumex
-Continue Coreg
Paroxysmal atrial fibrillation
- Continue Pradaxa
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
CAD
- Continue isosorbide dinitrate
COPD
- Continue albuterol, budesonide, Trelegy
Hyperlipidemia
- Continue statin
GERD
Neuropathy
- Continue gabapentin
Full code
DVT prophylaxis�Pradaxa
Cardiac diet
--- NOTE | 2024-06-26 19:16 | PTCARENOTE ---
Pt from ED with weakness, VFib and ICD shock on 06/24 and multiple falls including today. Pt denies any discomfort, appears very weak and ill. Pt is oriented X3 , placed on fall precautions which he understands. Pt has very fragile skin with a
[id number] skin tear on his left lower arm and 2 smaller skin tears on his right arm. WOC consulted. Telemetry shows vent paced rhythm. Will monitor closely and turn Q2 hours.
[2024-06-26] MEDS: PRADAXA 75 MG PO (19:59)
[2024-06-26] MEDS: PROTONIX 40 MG PO (19:59)
[2024-06-26] MEDS: COREG 3.125 MG PO (19:59)
[2024-06-26 20:09] LABS: Troponin I 0.113 ng/ml
[2024-06-26] MEDS: SYMBICORT 160/4.5 MCG INHALER 2 PUFF INH (20:10)
[2024-06-26] MEDS: NEURONTIN 600 MG PO (21:51)
[2024-06-26] MEDS: ISORDIL 10 MG PO (21:51)
[2024-06-26] MEDS: LIPITOR 40 MG PO (21:51)
[2024-06-27] VITALS (14 sets, daily range): BP systolic 80–108; BP diastolic 51–71; BMI 23.8
[2024-06-27 02:48] LABS: % Basophils 0.5 % (0-2); % Eosinophils 2.2 % (0-6); % Immature Granulocytes 0.6 % (0-0.5); % Lymphocytes 13.7 % (20.5-51.1); % Monocytes 15.6 % (1.7-9.3); % Neutrophils 67.4 % (42.2-75.2); Absolute Eosinophils 0.2 10^3/uL (0-0.7); Absolute Immature Granulocytes 0.1 10^3/uL (0-0.05); Absolute Lymphocytes 1.1 10^3/uL (1.2-3.4); Absolute Monocytes 1.3 10^3/uL (0.1-0.6); Absolute Neutrophils 5.5 10^3/uL (1.4-6.5); Hematocrit 34.7 % (39.0-52.0); Mean Corp Hgb Conc. 34.6 g/dL (33.0-37.0); Mean Corpuscular Volume 83.8 fL (80.0-94.0); Mean Platelet Volume 10.5 fL (7.4-10.4); Nucleated Red Blood Cells % 0 % (-); Platelet Count 206 10^3/uL (130-400); Red Blood Cell Count 4.14 10^6/uL (4.70-6.10); Red Cell Dist. Width 16.1 % (11.5-14.5); White Blood Cell Count 8.2 10^3/uL (4.8-10.8)
[2024-06-27 03:21] LABS: ALT (SGPT) 14 U/L (0-50); AST (SGOT) 14 U/L (17-59); Albumin 3.4 g/dl (3.5-5.0); Alkaline Phosphatase 116 U/L (38-126); Blood Urea Nitrogen 75 mg/dl (9-20); Calcium 9.3 mg/dl (8.4-10.2); Carbon Dioxide 29 mmol/L (22-30); Chloride 98 mmol/L (98-107); Estimated Creatinine Clearance 23 ml/min; Glucose 132 mg/dl (70-99); Potassium 2.8 mmol/L (3.5-5.1); Sodium 134 mmol/L (135-145); Total Bilirubin 0.9 mg/dl (0.2-1.3); Total Protein 6.1 g/dl (6.3-8.2); eGFR 20.61
[2024-06-27] MEDS: KCL 40 MEQ PO (04:05)
[2024-06-27 04:13] LABS: Magnesium 2.5 mg/dl (1.6-2.3)
[2024-06-27] MEDS: KCL 260 MEQ IV (04:19)
--- NOTE | 2024-06-27 06:05 | PTCARENOTE ---
Pt Vpaced with PVS on monitor, resting comfortable in bed, denies pain or any discomfort. Potassium 2.8 this morning. Po and iV potassium repleted. Safety measures in place, call erazo in reach
[2024-06-27] MEDS: SPIRIVA RESPIMAT 2.5 MCG 2 PUFF INH (07:19)
[2024-06-27] MEDS: SYMBICORT 160/4.5 MCG INHALER 2 PUFF INH ×2 (07:19→20:09)
[2024-06-27] MEDS: PRADAXA 75 MG PO (08:10)
[2024-06-27] MEDS: MAGNESIUM OXIDE 500 MG PO (08:10)
[2024-06-27] MEDS: ISORDIL 10 MG PO ×2 (08:10→22:47)
[2024-06-27] MEDS: VITAMIN B-6 50 MG PO (08:10)
[2024-06-27] MEDS: PROTONIX 40 MG PO ×2 (08:11→20:35)
[2024-06-27] MEDS: NEURONTIN 300 MG PO (08:11)
[2024-06-27] MEDS: VITAMIN C 500 MG PO (08:11)
--- NOTE | 2024-06-27 08:41 | CON.CAR ---
Consultation
Consultation Request
Date/Time Consultation Requested: 06/27/2024
Date/Time Consultation Performed: 06/27/2024
Reason for Consultation: Ventricular tachycardia
Medical History
-
Chief Complaint: ICD shock.
History of Present Illness:
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
root replacement, CAD, CKD 4, COPD, hyperlipidemia, GERD, presenting for worsening status since recent admission. He has been falling multiple times and did hit his head once. Not been sleeping well. Therapy stopped 2 days ago and he could not
lift his legs in bed therefore could not participate. He has chronic shortness of breath and some cough. Patient did receive a shock yesterday for the first time and cardiology informed him that his heart rate was in the 180s and to go to the
hospital if this were to happen again. He denies any chest pain. Denies any dizziness or palpitations.
He denies smoking or alcohol use.
[facility] - 03/20/2024
1. Right dominant circulation with an 80% lesion in the mid LAD followed by a 60% lesion in the more distal mid LAD and a chronic total occlusion of the proximal right coronary artery through the bifurcation, status post prior bypass (patent LOGAN
to mid LAD, patent SVG to RPDA, backfilling the large RPL), grossly unchanged from prior cardiac catheterization (09/17/2022).
2. Status post bioprosthetic aortic valve replacement without significant gradient on pullback.
3. Moderately elevated filling pressures (LVEDP = 20 mmHg, PCWP = 21 mmHg at 88.9 kg), likely appropriate given his known degree of LV dysfunction (LVEF 30-35%).
4. 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
5. Single-chamber ICD is observed.
[facility] 06/21/24:
Normal biventricular filling pressures (probably low given his degree of cardiomyopathy), normal pulmonary artery pressure, and severely reduced cardiac index in the setting of high SVR.
RECOMMENDATIONS:
1. Hold diuresis and adjust to as needed to achieve euvolemia as patient appears to be at current dry weight.
2. Start afterload reduction with hydralazine and isosorbide dinitrate titrated for MAP goal 65-75.
3. Consideration for outpatient consultation with palliative care given limited options for managing end-stage cardiomyopathy.
Past Medical History
Past Medical History: Arrhythmias (Paroxysmal atrial fibrillation-on Pradaxa), CAD, COPD, Hypercholesterolemia, Renal Failure (CKD 4) and Valvular Disease (Bicuspid aortic valve with severe aortic stenosis status post bioprosthetic AVR with aortic
root replacement.)
Social History
Tobacco: Non-Smoker
Alcohol: None
Drug: None
Personal:
Living: With Family
Family History
Family History: Reviewed & Not Pertinent
Allergies / Home Medications
Allergy/AdvReac Type Severity Reaction Status Date / Time
codeine [Codeine] Allergy nausea Verified 06/26/24 12:57
vomiting
Penicillins Allergy Hives, Verified 06/26/24 12:57
swelling,
tolerated
ceftriaxone
Feb 2020
�Medication �Instructions �Recorded �Confirmed �Type
atorvastatin 40 mg tablet 40 mg PO HS High cholesterol 04/25/22 06/26/24 History
gabapentin 300 mg capsule 600 mg PO HS neuropatic pain 03/14/23 06/26/24 History
magnesium oxide 400 mg PO Q48H Electrolyte 03/14/23 06/26/24 History
Repletion
acetaminophen 500 mg tablet 1,000 mg PO Q6HPRN PRN mild pain 04/01/23 06/26/24 History
(Tylenol Extra Strength)
pyridoxine (vitamin B6) 50 mg 50 mg PO DAILY Supplement 04/01/23 06/26/24 History
tablet (Vitamin B-6)
albuterol sulfate 2.5 mg/3 mL 2.5 mg inhalation R Q48H 12/08/23 06/26/24 History
(0.083 %) solution for nebulization Lung/Breathing Issues
ascorbic acid (vitamin C) 500 mg 500 mg PO DAILY Supplement 12/08/23 06/26/24 History
tablet (Vitamin C)
budesonide 0.5 mg/2 mL suspension 0.5 mg inhalation R Q48H 12/08/23 06/26/24 History
for nebulization Lung/Breathing Issues
fluticasone fur. 200 mcg-umeclid 1 inh inhalation R Q48H 12/08/23 06/26/24 History
62.5 mcg-vilant 25 mcg Lung/Breathing Issues
inhalat.powder (Trelegy Ellipta)
gabapentin 300 mg capsule 300 mg PO DAILY neuropathic pain 12/08/23 06/26/24 History
ipratropium bromide 0.02 % 2.5 ml inhalation R Q48H Allergies 12/08/23 06/26/24 History
solution for inhalation
dabigatran etexilate 75 mg capsule 75 mg PO BID Blood clot 12/16/23 06/26/24 Rx
(Pradaxa) prevention/tx 30 days #30 caps
pantoprazole 40 mg tablet,delayed 40 mg PO BID Gastrointestinal 12/16/23 06/26/24 Rx
release issue #60 tabs
potassium chloride 20 mEq 20 meq PO BID Electrolyte 12/16/23 06/26/24 Rx
tablet,extended release Repletion 30 days #60 tabs
carvedilol 3.125 mg tablet 3.125 mg PO BID Blood Pressure 06/18/24 06/26/24 History
bumetanide 1 mg tablet 3 mg (3 x 1 mg) PO DAILY #30 tabs 06/22/24 06/26/24 Rx
isosorbide dinitrate 10 mg tablet 10 mg PO TID #90 tabs 06/22/24 06/26/24 Rx
Review of Systems
-
All other systems: Negative unless noted
Physical Exam
Vital Signs
Temp Pulse Resp BP Pulse Ox
98.4 F 69 18 105/51 97
06/27/24 07:04 06/27/24 07:45 06/27/24 07:20 06/27/24 08:01 06/27/24 07:20
Lab Results
06/27/24 02:33
06/27/24 02:33
Troponin I Cancelled 06/27/24 13:00
[id number] Pept 4560 pg/ml 06/26/24 13:00
Physical Exam
General: Well Developed, Well Nourished and No Apparent Distress
HEENT: Normocephalic, Anicteric and Moist Mucous Membranes
Respiratory: Clear, Rhonchi and Non Labored Respirations
Cardiac: S1/S2 and Irregular Rhythm
GI: Soft, Non Tender and Normal Bowel Sounds
Musculoskeletal: No Clubbing, No Cyanosis and No Edema
Skin: Warm and Dry
Neuro: Awake, Alert, Oriented, AO x 3 and Other (Left eye blindness)
Impression / Plan
-
Primary Cards: Gwendolyn
VT/VF
- ICD treated the VT with ATP x3 on 06/25
- Then had VF arrest (fast VT) that required shock on 06/25
- ICD interrogation done and reviewed.
- Few episodes of nonsustained VT noted prior to that. There was also episode of pulm artery reading noted before that.
- With severe CAD and now VT, will add Amiodarone.
- Labile BP. currently on Coreg and Isordil
- Holding Hydralazine.
ICM/HFrEF - acute.
- severe, requiring hospitalization with IV diuresis, and close monitoring of labs/tele
- echo 03/2024: EF 30-35%
- dry weigth is 179.5lbs. - now at 180 lbs - stable.
-VT/VF 06/25/24
- Secondary prevention ICD in place.
- GDMT has been limited by renal function
-now on coreg, and isosorbide
- now on Bumex qd, appears euvolemic.
CAD - stable.
- s/p CABG (LOGAN to LAD, SVG to RPDA), patent on cardiac catheterization 03/22/24.
- continue medical therapy, aspirin, carvedilol, atorvastatin.
Paroxysmal Afib - stable in NSR.
- continue carvedilol.
- CHADS2-Vasc = 5 (CHF, HTN, Age x2, Vascular Disease).
- continue Pradaxa (Cr Cl 26)
CKD - stage 3b/4
- monitor closely with diuresis.
Bicuspid AV with severe and dilated ascending aorta - s/p bioprosthetic SAVR (#27 Braden 2800) and aortic root replacement (#30 [employer] [place] tube graft).
- stable on recent echocardiogram.
COPD - continue home bronchodilators.
- per hospitalist.
Data Reviewed
-
EKG: Tracing Personally Visualized and interpreted
Ultrasound: Image Personally Visualized and interpreted
Medical Tests (Nuc Med, Echo etc): Image Personally Visualized and interpreted, Report Reviewed by me and Discussed with Physician
Labs: Labs Reviewed by me, Discussed with Physician, Discussed with Patient and Discussed with Family
Old Records: Reviewed
[2024-06-27] MEDS: COREG 3.125 MG PO ×2 (09:53→20:35)
[2024-06-27] MEDS: CORDARONE 103 MG IV (12:16)
--- NOTE | 2024-06-27 12:30 | CON.CAR ---
Consultation
Consultation Request
Date/Time Consultation Requested: 06/26/2024/18:05
Date/Time Consultation Performed: 06/27/2024/08:00
Requesting Provider: Karen Crawford MD
Performing Provider: Norberto Engle MD
Reason for Consultation: Vtach
Medical History
-
History of Present Illness:
79 year old male with history of CAD s/p PCI and CABG, bicuspid aortic valve/severe aortic stenosis s/p aortic valve replacement, CKD, atrial fibrillation, HFrEF, ICD, and COPD, who presents after vtach with ICD response of ATPs and shock on 06/25.
Pt significant fatigue and multiple falls since recent hospitalization for acute HFrEF exacerbation. He has been unable to participate in PT at home due to fatigue. ICD interrogation revealed Vtach runs on 06/25/2024 requiring ATPs and one shock.
Past Medical History
Past Medical History: Arrhythmias (Afib), CAD, CHF (HFrEF), COPD, GERD, Hypercholesterolemia, Valvular Disease (aortic stenosis) and Other (CKD 4,)
Past Surgical History: Cardiac (PCI, CABG, single chamber ICD, AVR), Tonsilectomy, Urological (bladder repair) and Other (Left upper lobectomy, thyroidectomy, laparoscopic left inguinal hernia repair)
Social History
Tobacco: Non-Smoker
Alcohol: None
Drug: None
Personal:
Living: With Family
Family History
Family History: Other (Blood pressure did)
Allergies / Home Medications
Allergy/AdvReac Type Severity Reaction Status Date / Time
codeine [Codeine] Allergy nausea Verified 06/26/24 12:57
vomiting
Penicillins Allergy Hives, Verified 06/26/24 12:57
swelling,
tolerated
ceftriaxone
Feb 2020
�Medication �Instructions �Recorded �Confirmed �Type
atorvastatin 40 mg tablet 40 mg PO HS High cholesterol 04/25/22 06/26/24 History
gabapentin 300 mg capsule 600 mg PO HS neuropatic pain 03/14/23 06/26/24 History
magnesium oxide 400 mg PO Q48H Electrolyte 03/14/23 06/26/24 History
Repletion
acetaminophen 500 mg tablet 1,000 mg PO Q6HPRN PRN mild pain 04/01/23 06/26/24 History
(Tylenol Extra Strength)
pyridoxine (vitamin B6) 50 mg 50 mg PO DAILY Supplement 04/01/23 06/26/24 History
tablet (Vitamin B-6)
albuterol sulfate 2.5 mg/3 mL 2.5 mg inhalation R Q48H 12/08/23 06/26/24 History
(0.083 %) solution for nebulization Lung/Breathing Issues
ascorbic acid (vitamin C) 500 mg 500 mg PO DAILY Supplement 12/08/23 06/26/24 History
tablet (Vitamin C)
budesonide 0.5 mg/2 mL suspension 0.5 mg inhalation R Q48H 12/08/23 06/26/24 History
for nebulization Lung/Breathing Issues
fluticasone fur. 200 mcg-umeclid 1 inh inhalation R Q48H 12/08/23 06/26/24 History
62.5 mcg-vilant 25 mcg Lung/Breathing Issues
inhalat.powder (Trelegy Ellipta)
gabapentin 300 mg capsule 300 mg PO DAILY neuropathic pain 12/08/23 06/26/24 History
ipratropium bromide 0.02 % 2.5 ml inhalation R Q48H Allergies 12/08/23 06/26/24 History
solution for inhalation
dabigatran etexilate 75 mg capsule 75 mg PO BID Blood clot 12/16/23 06/26/24 Rx
(Pradaxa) prevention/tx 30 days #30 caps
pantoprazole 40 mg tablet,delayed 40 mg PO BID Gastrointestinal 12/16/23 06/26/24 Rx
release issue #60 tabs
potassium chloride 20 mEq 20 meq PO BID Electrolyte 12/16/23 06/26/24 Rx
tablet,extended release Repletion 30 days #60 tabs
carvedilol 3.125 mg tablet 3.125 mg PO BID Blood Pressure 06/18/24 06/26/24 History
isosorbide dinitrate 10 mg tablet 10 mg PO TID #90 tabs 06/22/24 06/26/24 Rx
bumetanide 1 mg tablet 3 mg PO DAILY Fluid 06/27/24 06/26/24 History
Retention/Swelling
Review of Systems
-
History Source: Patient
Constitutional: Fatigue
Respiratory: Other (no trouble breathing)
Cardiac: Other (No chest pain, palpitation, lightheadedness)
Abdomen/GI: No Symptoms
Musculoskeletal: Other (No edema)
Physical Exam
Vital Signs
Temp Pulse Resp BP Pulse Ox
97.8 F 70 20 98/52 95
06/27/24 11:23 06/27/24 09:53 06/27/24 11:23 06/27/24 09:53 06/27/24 11:23
Lab Results
06/27/24 02:33
06/27/24 02:33
Troponin I Cancelled 06/27/24 13:00
Fkc-B-Mkxdybphwkm Pept 4560 pg/ml 06/26/24 13:00
Physical Exam
General: No Apparent Distress and Other (Appears ill); Negative Fever
HEENT: Anicteric and Other (Dry mucous membrane)
Respiratory: Clear and Non Labored Respirations; Negative Wheezes, Crackles or Rhonchi
Cardiac: S1/S2 and Regular Rhythm (With occasional premature beat); Negative Murmur, Rub, Peripheral Edema, Calf Tenderness or JVD
GI: Soft, Non Tender, Non Distended and Normal Bowel Sounds
Musculoskeletal: No Clubbing, No Cyanosis and No Edema
Skin: Warm and Dry
Neuro: Awake, Alert and Oriented
Psych: Calm
Impression / Plan
-
79-year-old male with bicuspid aortic valve, [place] and PCI 2004, bioprosthetic aortic valve replacement and coronary artery bypass grafting and ascending aortic tube graft 2018, CKD, atrial fibrillation, cardiomyopathy with ejection fraction 40% by
echocardiogram 01/2022 and COPD who presents with Ventricular tachycardia with ICD pacing and shock.
Ventricular tachycardia on 06/25:
- Pt with Medtronic single chamber ICD placed in Sep 2022 for vtach
- Required 3 antitachycardia pacings, and then one shock
- Unlikely ischemic origin given stable LHC
- Start amioderone
HFrEF:
Ischemic cardiomyopathy:
- EF 30-35%.
- recent hospitalization for acute exacerbation. Now resolved.
- Bumex held for now, pt appears dry, RACHELE
- Continue beta-jade, isosorbide dinitrate
Valvular disease;
- Bicuspid AV with severe and dilated ascending aorta s/p bioprosthetic SAVR (#27 Braden 2800)
- Aortic root dilation s/p aortic root replacement (#[address] [employer] [place] tube graft)
CAD
- stable L heart cath 03/22/2024 with patent LOGAN to mid LAD, patent SVG to RPDA, stable from prior cath
- Continue aspirin and carvedilol
- Continue high intensity statin
Px-Afib:
- Continue pradaxa
Non-ischemic cardiomyopathy:
-Peak 0.142
DATA:
Cardiac cath 03/22/2024:
1. Right dominant circulation with an 80% lesion in the mid LAD followed by a 60% lesion in the more distal mid LAD and a chronic total occlusion of the proximal right coronary artery through the bifurcation, status post prior bypass (patent LOGAN
to mid LAD, patent SVG to RPDA, backfilling the large RPL), grossly unchanged from prior cardiac catheterization (09/17/2022).
2. Status post bioprosthetic aortic valve replacement without significant gradient on pullback.
3. Moderately elevated filling pressures (LVEDP = 20 mmHg, PCWP = 21 mmHg at 88.9 kg), likely appropriate given his known degree of LV dysfunction (LVEF 30-35%).
4. 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
5. Single-chamber ICD is observed.
Echo 03/20/2024:
Asymmetric septal hypertrophy. Severely reduced left ventricular systolic function. Left ventricular ejection fraction is 30-35%. Global hypokinesis with akinesis of the basal inferior wall.
Mitral valve opens normally. Thickened mitral valve leaflets with mild mitral regurgitation.
Normally functioning bioprosthetic aortic valve with mean gradients across the aortic valve of 5 mmHg.
Moderate tricuspid regurgitation. Estimated pulmonary artery pressure of 38 mmHg.
The ascending aorta and aortic arch are of normal size.
--- NOTE | 2024-06-27 12:31 | W.PN.HOSP.TC ---
Today's Communication/Plan
-
see note
Assessment / Plan
Assessment / Plan
# Hypotension
Generalized weakness
-Likely secondary to blood pressure control medication/diuretics
-Patient got fluid trial in ER, would avoid further IV fluid
-Bumex will require to be resumed followed by Imdur/Coreg as blood pressure allows
# V-fib episode resulting in shock
-This happened day before admission
-Device interrogation report in chart
- EP cardiology evaluated and patient has been started on amiodarone drip
- Potassium above 4 and magnesium above 2 will be required
# Hypokalemia
- Patient got 60 mEq of potassium in the night for potassium of 2.8. Magnesium 2.2
- recheck BMP
# RACHELE on CKD 4
- likely secondary to hypotension/Bumex
- IV fluids given, blood pressures improved so hold further fluids
- Hold Bumex and potassium
# Fall with head injury
- CT head shows no acute abnormality
# Nonischemic myocardial injury secondary to hypotension
- Troponin of 0.142, continue to trend
- EKG shows wide QRS rhythm, left bundle branch block which is old
#Chronic HFrEF/ischemic cardiomyopathy with ICD
-Chest x-ray shows no acute cardiopulmonary process
- Hold Bumex
-Continue Coreg
#Paroxysmal atrial fibrillation
- Continue Pradaxa
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
CAD - Continue isosorbide dinitrate
COPD - Continue albuterol, budesonide, Trelegy
Hyperlipidemia - Continue statin
GERD
Neuropathy - Continue gabapentin
Full code
DVT prophylaxis�Pradaxa
Total time spent ; 55 mins
High risk for cardiac decompensation/arrest and related complications.
Anticipated Discharge: 24 - 48 hours
Subjective/Interval History
-
Date of Service: June 27, 2024
Patient resting comfortably in bed
Denies any chest discomfort
blood pressure soft although no dizziness
Objective Data
-
Labs:
Laboratory Results
06/27/24
02:33
WBC 8.2
Hgb 12.0 L
Hct 34.7 L
Plt Count 206
Sodium 134 L
Potassium 2.8 L
Chloride 98
Carbon Dioxide 29
BUN 75 H
Creatinine 3.0 H
Glucose 132 H
Calcium 9.3
Total Bilirubin 0.9
AST 14 L
ALT 14
Alkaline Phosphatase 116
Vital Signs:
Vital Signs
Temp Pulse Resp BP Pulse Ox
97.8 F 70 20 98/52 95
06/27/24 11:23 06/27/24 09:53 06/27/24 11:23 06/27/24 09:53 06/27/24 11:23
I&O
06/26/24 06/27/24 06/28/24
06:59 06:59 06:59
Intake Total 520 / 520
Output Total 475 / 475 75 / 75
Balance 45 / 45 -75 / -75
Review of Systems
-
Respiratory: Reports No Symptoms
Cardiac: Reports No Symptoms
Abdomen/GI: Reports No Symptoms
Physical Exam
-
General: Negative Appears in Distress
HEENT: Negative Oxygen
Respiratory: Clear to Auscultation
Cardiac: Regular Rhythm and S1/S2; Negative Murmur
GI: Soft, Nontender and Nondistended
Musculoskeletal: Other (Diffuse echymosis upper and lower extermity)
Neuro: Awake, Alert and Oriented
[2024-06-27 13:39] LABS: Blood Urea Nitrogen 68 mg/dl (9-20); Calcium 9.6 mg/dl (8.4-10.2); Carbon Dioxide 23 mmol/L (22-30); Chloride 100 mmol/L (98-107); Estimated Creatinine Clearance 25 ml/min; Glucose 182 mg/dl (70-99); Potassium 3.4 mmol/L (3.5-5.1); Sodium 133 mmol/L (135-145); eGFR 23.39
[2024-06-27] MEDS: ISORDIL PO (15:18)
[2024-06-27] MEDS: KCL 20 MEQ PO (15:23)
[2024-06-27] MEDS: ATIVAN 0.5 MG PO (15:23)
--- NOTE | 2024-06-27 19:20 | PTCARENOTE ---
~5671-1879: Handoff report received from nightshift RN. Pt AOx4, NSR with about 50% Vpacing and PVCs, HR 60s-70s, satting high 90s RA. SBPs 90s-100s. Hold parameters added to BP meds in APR per Dr. Engle. Contact precautions maintained. Patient
denies pain at this time. Frequent turning and repositioning utilized. B/L arms bruising with skin tears dressed with foam dressings. Per Pt, L leg from knee down is numb, doppler pulses present. +2 palpable pulses BUE and +2 palpable R DP pulse.
All needs met at this time, call erazo within reach.
~2305-7246: at bedside. NSR 60s-70s with about 50% Vpacing and frequent PVCs. Pt denies pain at this time. Patient stood at bedside with Ax2 and walker. Patient c/o lightheadedness that passed with deep breathes, SBP remained in 90s, however
patient did appear unsteady on his feet and HDYE.
~5656-0525: PIV placed, amio bolus given per order. BMP obtained.
~7572-3179: Patient c/o 'heart racing' and SOB, patient also appears to have malaise at this time, VSS however. Dr. Engle made aware. Patient placed on 2L NC for comfort and sat up in bed. Ativan and K+ replacement ordered by provider and given.
Isordil held at this time, SBP <105.
~6358-2966: Per patient, his symptoms have improved more however he states 'I still dont feel great.' VS remain stable and pt still on 2L NC. All needs met at this time, call erazo within reach.
~0060-0304: Patient in stable condition at this time. Handoff report given to nightshift RN.
[2024-06-27] MEDS: ELIQUIS 5 MG PO (20:34)
[2024-06-27] MEDS: PACERONE 400 MG PO (20:35)
[2024-06-27] MEDS: NEURONTIN 600 MG PO (22:46)
[2024-06-27] MEDS: LIPITOR 40 MG PO (22:47)
[2024-06-28] VITALS (10 sets, daily range): BP systolic 92–108; BP diastolic 58–67; BMI 24.6
[2024-06-28 04:59] LABS: Blood Urea Nitrogen 63 mg/dl (9-20); Calcium 9.8 mg/dl (8.4-10.2); Carbon Dioxide 28 mmol/L (22-30); Chloride 101 mmol/L (98-107); Estimated Creatinine Clearance 29 ml/min; Glucose 134 mg/dl (70-99); Potassium 3.6 mmol/L (3.5-5.1); Sodium 135 mmol/L (135-145); eGFR 26.94
--- NOTE | 2024-06-28 06:14 | SUR.OPER ---
Pt V paced on monitor, AAOx 4, Pt had a short episod where he felt SOB but quickly resolved with nasal canula 2L. Reposition Q 2hrs. safety measures in place, call erazo in reach
--- NOTE | 2024-06-28 07:38 | W.PN.HOSP.TC ---
Today's Communication/Plan
-
See plan
Assessment / Plan
Assessment / Plan
Physical Exam
General: Not in acute distress
HEENT: Normocephalic
Respiratory: Clear to Auscultation Bilaterally
Cardiac: Regular Rhythm and S1/S2
GI: Soft, Nontender and Nondistended. Positive bowel sounds.
Musculoskeletal: Other (Diffuse ecchymosis upper and lower extremity)
Neuro: Awake, Alert and Oriented
Assessment/Plan
# Hypotension
Generalized weakness
-Likely secondary to blood pressure control medication/diuretics
-Patient got fluid trial in ER, would avoid further IV fluid
-Holding Bumex for now. Imdur/Coreg as blood pressure allows
#Delirium
-Continue to monitor
# V-fib episode resulting in shock
-This happened day before admission
-Device interrogation report in chart
- EP cardiology evaluated and patient was started on amiodarone drip
- Potassium above 4 and magnesium above 2 will be required
# Hypokalemia
- Patient got 60 mEq of potassium in the night for potassium of 2.8. Magnesium 2.2
- recheck BMP
# RACHELE on CKD 4
- likely secondary to hypotension/Bumex
- IV fluids previously given, blood pressures improved so hold further fluids
- Hold Bumex
# Fall with head injury
- CT head shows no acute abnormality
# Nonischemic myocardial injury secondary to hypotension
- Troponin of 0.142, continue to trend
- EKG shows wide QRS rhythm, left bundle branch block which is old
#Chronic HFrEF/ischemic cardiomyopathy with ICD
-Chest x-ray shows no acute cardiopulmonary process
- Hold Bumex since patient appears hypovolemic to euvolemic
-Continue Coreg and isosorbide dinitrate
#Paroxysmal atrial fibrillation
-Pradaxa replaced with Eliquis since patient has CKD and is on Amiodarone
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
CAD - Continue isosorbide dinitrate
COPD - Continue albuterol, budesonide, Trelegy
Hyperlipidemia - Continue statin
GERD
Neuropathy - Continue gabapentin
Full code
DVT prophylaxis�Eliquis
Anticipated Discharge: > 48 hours
Subjective/Interval History
-
Date of Service: June 28, 2024
Patient was seen and examined. He denied any chest pain or any other new symptoms or complaints.
Objective Data
-
Labs:
Laboratory Results
06/28/24
03:57
Sodium 135
Potassium 3.6
Chloride 101
Carbon Dioxide 28
BUN 63 H
Creatinine 2.4 H
Glucose 134 H
Calcium 9.8
Vital Signs:
Vital Signs
Temp Pulse Resp BP Pulse Ox
97.2 F 63 20 95/58 2
06/28/24 07:06 06/28/24 04:45 06/28/24 07:06 06/28/24 03:47 06/28/24 07:06
I&O
06/27/24 06/28/24 06/29/24
06:59 06:59 06:59
Intake Total 520 / 520 280 / 280
Output Total 475 / 475 350 / 350
Balance 45 / 45 -70 / -70
[2024-06-28] MEDS: VITAMIN C 500 MG PO (08:21)
[2024-06-28] MEDS: VITAMIN B-6 50 MG PO (08:21)
[2024-06-28] MEDS: ISORDIL PO ×2 (08:21→16:16)
[2024-06-28] MEDS: ELIQUIS 5 MG PO ×2 (08:21→20:06)
[2024-06-28] MEDS: COREG 3.125 MG PO ×2 (08:21→20:05)
[2024-06-28] MEDS: PACERONE 400 MG PO ×2 (08:22→20:06)
[2024-06-28] MEDS: PROTONIX 40 MG PO ×2 (08:22→20:05)
[2024-06-28] MEDS: NEURONTIN 300 MG PO (08:22)
[2024-06-28] MEDS: SPIRIVA RESPIMAT 2.5 MCG 2 PUFF INH (08:24)
[2024-06-28] MEDS: SYMBICORT 160/4.5 MCG INHALER 2 PUFF INH ×2 (08:25→20:13)
--- NOTE | 2024-06-28 09:32 | W.PN.CD ---
Today's Communication / Plan
-
- Holding Hydralazine.
- Continue Coreg, Isordil.
- Pradaxa is stopped and switched to Eliquis 5 mg BID
- Amiodarone 400 mg BID
Impression / Plan
-
79-year-old male with bicuspid aortic valve, [place] and PCI 2004, bioprosthetic aortic valve replacement and coronary artery bypass grafting and ascending aortic tube graft 2017, CKD, atrial fibrillation, cardiomyopathy with ejection fraction 40% by
echocardiogram 01/2022 and COPD who presents with Ventricular tachycardia with ICD pacing and shock.
Acute Delirium
- Patient had an acute delirium episode overnight
- had difficult night but is back to his baseline this AM
- High risk of .
Ventricular tachycardia on 06/25:
- Pt with Medtronic single chamber ICD placed in Sep 2022 for vtach
- Required 3 antitachycardia pacings, and then one shock
- Unlikely ischemic origin given stable LHC
- On amiodarone - With Severe CKD, Pradaxa is contraindicated with concomitant with Amiodarone. Pradaxa is switched to Eliquis.
HFrEF:
Ischemic cardiomyopathy:
- EF 30-35%.
- recent hospitalization for acute exacerbation. Now resolved.
- Bumex held for now, pt appears dry,
- Continue beta-jade, isosorbide dinitrate
RACHELE
- Acute on chronic CKD IV
- Cr is coming down.
- Cr was 3.1 at admission post shock
- Cr is 2.4 today and trending down. Baseline is 2.3-2.4
Valvular disease;
- Bicuspid AV with severe and dilated ascending aorta s/p bioprosthetic SAVR (#27 Braden 2800)
- Aortic root dilation s/p aortic root replacement (#30 Hem[employer]ield [place] tube graft)
CAD
- stable L heart cath 03/22/2024 with patent LOGAN to mid LAD, patent SVG to RPDA, stable from prior cath
- Continue aspirin and carvedilol
- Continue high intensity statin
Px-Afib:
- Continue pradaxa
Non-ischemic cardiomyopathy:
- Peak 0.142
- ICD shock related vs VT.
- RACHELE on CKD.
DATA:
Cardiac cath 03/22/2024:
1. Right dominant circulation with an 80% lesion in the mid LAD followed by a 60% lesion in the more distal mid LAD and a chronic total occlusion of the proximal right coronary artery through the bifurcation, status post prior bypass (patent LOGAN
to mid LAD, patent SVG to RPDA, backfilling the large RPL), grossly unchanged from prior cardiac catheterization (09/17/2022).
2. Status post bioprosthetic aortic valve replacement without significant gradient on pullback.
3. Moderately elevated filling pressures (LVEDP = 20 mmHg, PCWP = 21 mmHg at 88.9 kg), likely appropriate given his known degree of LV dysfunction (LVEF 30-35%).
4. 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
5. Single-chamber ICD is observed.
Echo 03/20/2024:
Asymmetric septal hypertrophy. Severely reduced left ventricular systolic function. Left ventricular ejection fraction is 30-35%. Global hypokinesis with akinesis of the basal inferior wall.
Mitral valve opens normally. Thickened mitral valve leaflets with mild mitral regurgitation.
Normally functioning bioprosthetic aortic valve with mean gradients across the aortic valve of 5 mmHg.
Moderate tricuspid regurgitation. Estimated pulmonary artery pressure of 38 mmHg.
The ascending aorta and aortic arch are of normal size.
Physical Exam
Vital Signs/Labs
Vital Signs
Temp Pulse Resp BP Pulse Ox
97.2 F 60 16 104/65 97
06/28/24 07:06 06/28/24 09:00 06/28/24 08:30 06/28/24 08:22 06/28/24 08:30
06/27/24 06/28/24 06/29/24
06:59 06:59 06:59
Actual Weight 81.7 kg
06/27/24 02:33
06/28/24 03:57
Magnesium 2.5 mg/dl (1.6-2.3) H 06/27/24 02:33
06/26/24
13:00
Kil-C-Dufvbvgfjjr Pept 4560
LAB Results
06/26/24 06/26/24 06/27/24
13:00 19:28 02:33
Troponin I 0.142 H* 0.113 H* 0.110 H*
06/27/24 06/27/24
07:00 13:00
Troponin I Cancelled Cancelled
Physical Exam
Constitutional: No acute distress and Comfortable
EENT: Anicteric and Moist mucous membranes
Cardiovascular: Rhythm & rate is regular, Pedal edema is absent and JVD present
Respiratory: Respiratory effort normal and Lungs clear to auscul.
GI: Soft, Non tender and Normal bowel sounds
Neuro/Psych: Alert, Oriented and AO x 3
Data Reviewed
-
Date of Service: June 28, 2024
Medical Decision Making: Reviewed Test Results, Test Interpretation and Review of Case with other Provider
EKG: Tracing Personally Visualized and interpreted
Echo: Report Reviewed by me
Labs: Labs Reviewed by me
Old Records: Reviewed
--- NOTE | 2024-06-28 11:30 | WOUNDNOTE ---
R ARM (proximal upper)
--- NOTE | 2024-06-28 13:14 | WOUNDNOTE ---
[facility] RN note: Patient admitted with V fib, multiple falls. Patient lives with his .
See H&P for complete history.
PMH: HF, CM, ICD, a fib (Pradaxa), AVR, CAD, CKD4, COPD, CABG, appendectomy, bladder repair, L inguinal hernia repair, L upper lung lobectomy.
Wound Location and type/assessment: Patient admitted with: dermal skin tears LUE and RUE, L knee skin tear. Bruises UE's.
Appetite: good for breakfast.
Pressure redistribution devices in place: [employer] Accumax. Patient turns with assistance.
Plan: Silicone border foam applied LUE skin tear. Silicone border foam changed on R knee. Silicone border foam dressings maintained on RUE. Patient turned to L semi side lying position with help from JASPER Jaeger. Heels off bed with pillow. Air chair
cushion given.
Will confirm orders Dr. Jose. Discussed with JASPER Jaeger.
Care plan to be updated. Will sign off. Call if needed.
Note to case management requested for discharge: VN if goes home.
--- NOTE | 2024-06-28 13:30 | VNURNOTE ---
Chart reviewed. Patient is current with [facility] nursing. Will continue to follow hospital course and DC plans.
--- NOTE | 2024-06-28 19:18 | PTCARENOTE ---
~0604-4107: handoff report received from mendez RN. Bed check in place for safety. Pt AOx4, V paced on tele 60-70s, SBPs 90s-100s, RA. L FA skin tear, R FA skin tear x2 and R skin tear covered with foams which are CDI at this time. B/L heel
foams present. Bruising on b/l arms noted. Ax2 with walker to stand at bedside. Pt denies pain at this time. All needs met at this time, call erazo within reach.
~3187-0349: Patient turned and repositioned frequently. Wound nurse in to see patient skin tears x3 and abrasion on R knee, wound orders placed. Patient remains Ax4, denies pain and VSS. All needs met at this time, call erazo within reach. Handoff
report given to gerrythomas Rn.
[2024-06-28] MEDS: KCL 20 MEQ PO (20:05)
[2024-06-28] MEDS: LIPITOR 40 MG PO (21:31)
[2024-06-28] MEDS: NEURONTIN 600 MG PO (21:31)
[2024-06-28] MEDS: ISORDIL 10 MG PO (21:31)
--- NOTE | 2024-06-28 22:22 | PTCARENOTE ---
Patient received at change of shift resting in the bed. Denies pain at this time, reports feeling tired. Vpaced on telemetry. Oxygen saturation 96% on room air. Q2 turns continue, patient is able to help turn in the bed. Bed alarm armed due to
intermittent forgetfulness. Plan of care discussed. Call erazo within reach. Care ongoing.
[2024-06-29] VITALS (10 sets, daily range): BP systolic 99–115; BP diastolic 55–70; PULSE 61; O2SAT 98; BMI 24.4
[2024-06-29] MEDS: TYLENOL 1000 MG PO ×2 (03:15→18:55)
[2024-06-29 06:50] LABS: % Basophils 0.5 % (0-2); % Eosinophils 2.5 % (0-6); % Immature Granulocytes 0.6 % (0-0.5); % Lymphocytes 9.8 % (20.5-51.1); % Monocytes 7.7 % (1.7-9.3); % Neutrophils 78.9 % (42.2-75.2); Absolute Basophils 0.1 10^3/uL (0-0.2); Absolute Eosinophils 0.3 10^3/uL (0-0.7); Absolute Immature Granulocytes 0.1 10^3/uL (0-0.05); Absolute Lymphocytes 1.1 10^3/uL (1.2-3.4); Absolute Monocytes 0.8 10^3/uL (0.1-0.6); Absolute Neutrophils 8.5 10^3/uL (1.4-6.5); Hematocrit 33.5 % (39.0-52.0); Hemoglobin 11.5 g/dL (13.0-18.0); Mean Corp Hgb Conc. 34.3 g/dL (33.0-37.0); Mean Corpuscular Hgb 29.2 pg (27.0-31.0); Mean Platelet Volume 10.5 fL (7.4-10.4); Nucleated Red Blood Cells % 0 % (-); Platelet Count 223 10^3/uL (130-400); Red Blood Cell Count 3.94 10^6/uL (4.70-6.10); Red Cell Dist. Width 16.1 % (11.5-14.5); White Blood Cell Count 10.8 10^3/uL (4.8-10.8)
[2024-06-29 07:25] LABS: ALT (SGPT) 16 U/L (0-50); AST (SGOT) 13 U/L (17-59); Albumin 3.2 g/dl (3.5-5.0); Alkaline Phosphatase 121 U/L (38-126); Blood Urea Nitrogen 50 mg/dl (9-20); Calcium 9.6 mg/dl (8.4-10.2); Carbon Dioxide 27 mmol/L (22-30); Chloride 103 mmol/L (98-107); Estimated Creatinine Clearance 31 ml/min; Glucose 119 mg/dl (70-99); Magnesium 2.3 mg/dl (1.6-2.3); Potassium 3.5 mmol/L (3.5-5.1); Sodium 135 mmol/L (135-145); Total Bilirubin 0.8 mg/dl (0.2-1.3); Total Protein 5.8 g/dl (6.3-8.2); eGFR 29.91
[2024-06-29] MEDS: NEURONTIN 300 MG PO (08:00)
[2024-06-29] MEDS: MAGNESIUM OXIDE 500 MG PO (08:00)
[2024-06-29] MEDS: VITAMIN C 500 MG PO (08:00)
[2024-06-29] MEDS: PROTONIX 40 MG PO ×2 (08:00→19:39)
[2024-06-29] MEDS: KCL 20 MEQ PO (08:01)
[2024-06-29] MEDS: VITAMIN B-6 50 MG PO (08:01)
[2024-06-29] MEDS: ELIQUIS 5 MG PO ×2 (08:01→19:39)
[2024-06-29] MEDS: ISORDIL 10 MG PO ×3 (08:01→22:23)
[2024-06-29] MEDS: PACERONE 400 MG PO ×2 (08:02→19:39)
[2024-06-29] MEDS: SPIRIVA RESPIMAT 2.5 MCG 2 PUFF INH (08:51)
[2024-06-29] MEDS: SYMBICORT 160/4.5 MCG INHALER 2 PUFF INH ×2 (08:51→19:54)
--- NOTE | 2024-06-29 10:58 | W.PN.CD ---
Today's Communication / Plan
-
- Stable fro discharge from cardiac stand point.
- Plan for Amiodarone 400 mg BID for one week then 200 mg BID
- Discharge home on Eliquis.
Impression / Plan
-
79-year-old male with bicuspid aortic valve, [place] and PCI 2004, bioprosthetic aortic valve replacement and coronary artery bypass grafting and ascending aortic tube graft 2017, CKD, atrial fibrillation, cardiomyopathy with ejection fraction 40% by
echocardiogram 01/2022 and COPD who presents with Ventricular tachycardia with ICD pacing and shock.
Acute Delirium
- Improved now.
- High risk of sundowning.
Ventricular tachycardia on 06/25:
- Pt with Medtronic single chamber ICD placed in Sep 2022 for vtach
- Required 3 antitachycardia pacings, and then one shock
- Unlikely ischemic origin given stable LHC
- On amiodarone - With Severe CKD, Pradaxa is contraindicated with concomitant with Amiodarone. Pradaxa is switched to Eliquis.
- Plan for Amiodarone 400 mg BID for one week then 200 mg BID
HFrEF:
Ischemic cardiomyopathy:
- EF 30-35%.
- recent hospitalization for acute exacerbation. Now resolved.
- Bumex held for now, pt appears dry,
- Continue beta-jade, isosorbide dinitrate
RACHELE
- Acute on chronic CKD IV
- Cr is coming down.
- Cr was 3.1 at admission post shock
- Cr is 2.2 today and trending down. Baseline is 2.3-2.4
Valvular disease;
- Bicuspid AV with severe and dilated ascending aorta s/p bioprosthetic SAVR (#27 Braden 2800)
- Aortic root dilation s/p aortic root replacement (#30 Hemashield [place] tube graft)
CAD
- stable L heart cath 03/22/2024 with patent LOGAN to mid LAD, patent SVG to RPDA, stable from prior cath
- Continue aspirin and carvedilol
- Continue high intensity statin
Px-Afib:
- Switched pradaxa to Eliquis.
Non-ischemic cardiomyopathy:
- Peak 0.142
- ICD shock related vs VT.
- RACHELE on CKD.
DATA:
Cardiac cath 03/22/2024:
1. Right dominant circulation with an 80% lesion in the mid LAD followed by a 60% lesion in the more distal mid LAD and a chronic total occlusion of the proximal right coronary artery through the bifurcation, status post prior bypass (patent LOGAN
to mid LAD, patent SVG to RPDA, backfilling the large RPL), grossly unchanged from prior cardiac catheterization (09/17/2022).
2. Status post bioprosthetic aortic valve replacement without significant gradient on pullback.
3. Moderately elevated filling pressures (LVEDP = 20 mmHg, PCWP = 21 mmHg at 88.9 kg), likely appropriate given his known degree of LV dysfunction (LVEF 30-35%).
4. 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
5. Single-chamber ICD is observed.
Echo 03/20/2024:
Asymmetric septal hypertrophy. Severely reduced left ventricular systolic function. Left ventricular ejection fraction is 30-35%. Global hypokinesis with akinesis of the basal inferior wall.
Mitral valve opens normally. Thickened mitral valve leaflets with mild mitral regurgitation.
Normally functioning bioprosthetic aortic valve with mean gradients across the aortic valve of 5 mmHg.
Moderate tricuspid regurgitation. Estimated pulmonary artery pressure of 38 mmHg.
The ascending aorta and aortic arch are of normal size.
Physical Exam
Vital Signs/Labs
Vital Signs
Temp Pulse Resp BP Pulse Ox
97.8 F 61 14 106/61 96
06/29/24 07:13 06/29/24 08:55 06/29/24 08:55 06/29/24 08:02 06/29/24 08:55
06/28/24 06/29/24 06/30/24
06:59 06:59 06:59
Actual Weight 83.8 kg
06/29/24 06:32
06/29/24 06:32
Magnesium 2.3 mg/dl (1.6-2.3) 06/29/24 06:32
06/26/24
13:00
[id number] Pept 4560
LAB Results
06/26/24 06/26/24 06/27/24
13:00 19:28 02:33
Troponin I 0.142 H* 0.113 H* 0.110 H*
06/27/24 06/27/24
07:00 13:00
Troponin I Cancelled Cancelled
Physical Exam
Constitutional: No acute distress and Comfortable
EENT: Anicteric and Moist mucous membranes
Cardiovascular: Rhythm & rate is regular, Pedal edema is absent and JVD pressure is normal
Respiratory: Respiratory effort normal, Lungs clear to auscul. and Wheeze Absent
GI: Soft, Non tender and Normal bowel sounds
Neuro/Psych: Alert, Oriented and AO x 3
Data Reviewed
-
Date of Service: June 29, 2024
Medical Decision Making: Reviewed Test Results, Test Interpretation and Review of Case with other Provider
EKG: Tracing Personally Visualized and interpreted
Echo: Report Reviewed by me
Labs: Labs Reviewed by me
Old Records: Reviewed
[2024-06-29] MEDS: COREG 3.125 MG PO ×2 (11:16→19:38)
--- NOTE | 2024-06-29 11:58 | CM ---
spoke to pt in room, he is prev indep, lives with his in a 2 story home with 2 steps to enter. he uses 2 walking sticks at home. awaiting PT eval to determ dc plans. pt stated he did not want to go to a rehab
--- NOTE | 2024-06-29 12:49 | PTCARENOTE ---
Pt stated that he was dizzy as he was sitting on the side of the bed. BP 101/67, HR 62. Pt stood at bedside and took a few steps w/ his walker. Pt returned to bed with the same complaints of feeling dizzy. Will monitor.
--- NOTE | 2024-06-29 13:42 | W.PN.HOSP.TC ---
Today's Communication/Plan
-
SNF/acute rehab placement pending
See below
Assessment / Plan
Assessment / Plan
Physical Exam
General: Not in acute distress
HEENT: Normocephalic
Respiratory: Clear to Auscultation Bilaterally
Cardiac: Regular Rhythm and S1/S2
GI: Soft, Nontender and Nondistended. Positive bowel sounds.
Musculoskeletal: Other (Diffuse ecchymosis upper and lower extremity)
Neuro: Awake, Alert and Oriented
Assessment/Plan
# Hypotension
Generalized weakness
-Likely secondary to blood pressure control medication/diuretics
-Patient got fluid trial in ER, would avoid further IV fluid
-Holding Bumex for now. Imdur/Coreg as blood pressure allows
#Delirium
-Continue to monitor
# V-fib episode resulting in shock
-This happened day before admission
-Device interrogation report in chart
- EP cardiology evaluated and patient was started on amiodarone drip; plan for Amiodarone 400 mg BID for one week and then Amiodarone 200 mg BID
- Keep potassium above 4 and magnesium above 2
# Hypokalemia
- Patient got 60 mEq of potassium in the night for potassium of 2.8. Magnesium 2.2
- recheck BMP
# RACHELE on CKD 4
- Creatinine improving
- likely secondary to hypotension/Bumex
- IV fluids previously given, blood pressures improved so hold further fluids
- Hold Bumex
# Fall with head injury
- CT head shows no acute abnormality
# Nonischemic myocardial injury secondary to hypotension
- Troponin of 0.142, continue to trend
- EKG shows wide QRS rhythm, left bundle branch block which is old
#Chronic HFrEF/ischemic cardiomyopathy with ICD
-Chest x-ray shows no acute cardiopulmonary process
-Hold Bumex since patient appears hypovolemic to euvolemic
-Continue Coreg and isosorbide dinitrate
#Paroxysmal atrial fibrillation
-Pradaxa replaced with Eliquis since patient has CKD and is on Amiodarone
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
CAD - Continue isosorbide dinitrate, Aspirin and Carvedilol, and Atorvastatin 40 mg HS
COPD - Continue albuterol, budesonide, Trelegy
Hyperlipidemia - Continue statin
GERD
Neuropathy - Continue gabapentin
Full code
DVT prophylaxis�Eliquis
Anticipated Discharge: Within 24 hours
Subjective/Interval History
-
Date of Service: June 29, 2024
Patient was seen and examined. He denied any new symptoms, overall feeling better. No significant new chest pain or shortness of breath.
Objective Data
-
Labs:
Laboratory Results
06/29/24
06:32
WBC 10.8
Hgb 11.5 L
Hct 33.5 L
Plt Count 223
Sodium 135
Potassium 3.5
Chloride 103
Carbon Dioxide 27
BUN 50 H
Creatinine 2.2 H
Glucose 119 H
Calcium 9.6
Total Bilirubin 0.8
AST 13 L
ALT 16
Alkaline Phosphatase 121
Vital Signs:
Vital Signs
Temp Pulse Resp BP Pulse Ox
97.8 F 62 18 105/62 95
06/29/24 11:17 06/29/24 11:16 06/29/24 11:17 06/29/24 11:16 06/29/24 11:17
I&O
06/28/24 06/29/24 06/30/24
06:59 06:59 06:59
Intake Total 280 / 280 240 / 240
Output Total 350 / 350 675 / 675 250 / 250
Balance -70 / -70 -435 / -435 -250 / -250
[2024-06-29] MEDS: LIPITOR 40 MG PO (22:23)
[2024-06-29] MEDS: NEURONTIN 600 MG PO (22:24)
--- NOTE | 2024-06-29 23:09 | PTCARENOTE ---
Received patient at change of shift. V paced on the monitor, HR in the 60s. VSS on room air. No complaints from pt at this time, call erazo within reach.
[2024-06-30] VITALS (13 sets, daily range): BP systolic 74–112; BP diastolic 48–90; PULSE 61–75; O2SAT 96
[2024-06-30 04:35] LABS: % Basophils 0.6 % (0-2); % Eosinophils 2.9 % (0-6); % Immature Granulocytes 0.5 % (0-0.5); % Lymphocytes 13.9 % (20.5-51.1); % Monocytes 9.4 % (1.7-9.3); % Neutrophils 72.7 % (42.2-75.2); Absolute Basophils 0.1 10^3/uL (0-0.2); Absolute Eosinophils 0.2 10^3/uL (0-0.7); Absolute Lymphocytes 1.2 10^3/uL (1.2-3.4); Absolute Monocytes 0.8 10^3/uL (0.1-0.6); Absolute Neutrophils 6.1 10^3/uL (1.4-6.5); Hematocrit 32.9 % (39.0-52.0); Mean Corp Hgb Conc. 33.4 g/dL (33.0-37.0); Mean Corpuscular Hgb 28.3 pg (27.0-31.0); Mean Corpuscular Volume 84.6 fL (80.0-94.0); Mean Platelet Volume 10.7 fL (7.4-10.4); Nucleated Red Blood Cells % 0 % (-); Platelet Count 218 10^3/uL (130-400); Red Blood Cell Count 3.89 10^6/uL (4.70-6.10); Red Cell Dist. Width 16.3 % (11.5-14.5); White Blood Cell Count 8.4 10^3/uL (4.8-10.8)
[2024-06-30 05:01] LABS: ALT (SGPT) 15 U/L (0-50); AST (SGOT) 16 U/L (17-59); Albumin 3.3 g/dl (3.5-5.0); Alkaline Phosphatase 122 U/L (38-126); Blood Urea Nitrogen 49 mg/dl (9-20); Calcium 9.7 mg/dl (8.4-10.2); Carbon Dioxide 25 mmol/L (22-30); Chloride 104 mmol/L (98-107); Estimated Creatinine Clearance 33 ml/min; Glucose 107 mg/dl (70-99); Magnesium 2.4 mg/dl (1.6-2.3); Potassium 4.1 mmol/L (3.5-5.1); Sodium 135 mmol/L (135-145); Total Bilirubin 0.8 mg/dl (0.2-1.3); Total Protein 5.9 g/dl (6.3-8.2); eGFR 31.63
[2024-06-30] MEDS: TYLENOL 1000 MG PO ×2 (06:45→19:24)
[2024-06-30] MEDS: SPIRIVA RESPIMAT 2.5 MCG 2 PUFF INH (07:29)
[2024-06-30] MEDS: SYMBICORT 160/4.5 MCG INHALER 2 PUFF INH ×2 (07:30→19:54)
--- NOTE | 2024-06-30 07:56 | W.PN.HOSP.TC ---
Today's Communication/Plan
-
SNF placement pending
Stop Imdur given hypotension
Need to be very careful to see whether patient develops hypotension from Metoprolol
Assessment / Plan
Assessment / Plan
Physical Exam
General: Not in acute distress
HEENT: Normocephalic
Respiratory: Clear to Auscultation Bilaterally
Cardiac: Regular Rhythm and S1/S2
GI: Soft, Nontender and Nondistended. Positive bowel sounds.
Musculoskeletal: Other (Diffuse ecchymosis upper and lower extremity)
Neuro: Awake, Alert and Oriented
Assessment/Plan
# Hypotension
Generalized weakness
-Likely secondary to blood pressure control medication/diuretics
-Patient got fluid trial in ER, would avoid further IV fluid
-Holding Bumex for now.
-Stop Imdur due to persistent hypotension -- SBP was in the 70s and 80s while patient was lying down, on 06/30/24 morning
-Coreg switched to Metoprolol
#Delirium
-Continue to monitor
# V-fib episode resulting in shock
-This happened day before admission
-Device interrogation report in chart
- EP cardiology evaluated and patient was started on amiodarone drip; plan for Amiodarone 400 mg BID for one week and then Amiodarone 200 mg BID
- Keep potassium above 4 and magnesium above 2
# Hypokalemia
- Patient got 60 mEq of potassium in the night for potassium of 2.8. Magnesium 2.2
- recheck BMP
# RACHELE on CKD 4
- Creatinine improving
- likely secondary to hypotension/Bumex
- IV fluids previously given, blood pressures improved so hold further fluids
- Hold Bumex
# Fall with head injury
- CT head showed no acute abnormality
# Nonischemic myocardial injury secondary to hypotension
- Troponin of 0.142, continue to trend
- EKG shows wide QRS rhythm, left bundle branch block which is old
#Chronic HFrEF/ischemic cardiomyopathy with ICD
-Chest x-ray shows no acute cardiopulmonary process
-Hold Bumex since patient appears hypovolemic to euvolemic
-Continue Coreg and isosorbide dinitrate
#Paroxysmal atrial fibrillation
-Pradaxa replaced with Eliquis since patient has CKD and is on Amiodarone
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
CAD - Continue isosorbide dinitrate, Aspirin and Carvedilol, and Atorvastatin 40 mg HS
COPD - Continue albuterol, budesonide, Trelegy
Hyperlipidemia - Continue statin
GERD
Neuropathy - Continue gabapentin
Full code
DVT prophylaxis�Eliquis
On 06/30/24, I spoke with patient's inside patient's room and answered all her questions and concerns to satisfaction.
Anticipated Discharge: Within 24 hours
Subjective/Interval History
-
Date of Service: June 30, 2024
Patient was seen and examined. He denied any new chest pain or shortness of breath or any other new complaints.
Objective Data
-
Labs:
Laboratory Results
06/30/24
03:35
WBC 8.4
Hgb 11.0 L
Hct 32.9 L
Plt Count 218
Sodium 135
Potassium 4.1
Chloride 104
Carbon Dioxide 25
BUN 49 H
Creatinine 2.1 H
Glucose 107 H
Calcium 9.7
Total Bilirubin 0.8
AST 16 L
ALT 15
Alkaline Phosphatase 122
Vital Signs:
Vital Signs
Temp Pulse Resp BP Pulse Ox
98.2 F 63 18 99/62 96
06/30/24 03:38 06/30/24 07:31 06/30/24 07:31 06/29/24 19:38 06/30/24 07:31
I&O
06/29/24 06/30/24 07/01/24
06:59 06:59 06:59
Intake Total 240 / 240 400 / 400
Output Total 675 / 675 1225 / 1225
Balance -435 / -435 -825 / -825
[2024-06-30] MEDS: NEURONTIN 300 MG PO (08:03)
[2024-06-30] MEDS: ELIQUIS 5 MG PO ×2 (08:04→19:23)
[2024-06-30] MEDS: PROTONIX 40 MG PO ×2 (08:04→19:22)
[2024-06-30] MEDS: ISORDIL PO (08:05)
[2024-06-30] MEDS: COREG PO (08:05)
[2024-06-30] MEDS: VITAMIN C 500 MG PO (08:05)
[2024-06-30] MEDS: PACERONE 400 MG PO ×2 (08:06→19:22)
[2024-06-30] MEDS: VITAMIN B-6 50 MG PO (08:07)
--- NOTE | 2024-06-30 08:32 | W.PN.CD ---
Today's Communication / Plan
-
- change the Coreg to Toprol 12.5 mg BID and Isordil to Imdur 30 a day.
- If hypotensive then can stop imdur.
- Continue Amiodarone 400 mg BID for a week then 200 mg BID.
- Pradaxa switched to Eliquis.
- Stable to discharge to SNF from cardiac standpoint.
Impression / Plan
-
79-year-old male with bicuspid aortic valve, [place] and PCI 2004, bioprosthetic aortic valve replacement and coronary artery bypass grafting and ascending aortic tube graft 2017, CKD, atrial fibrillation, cardiomyopathy with ejection fraction 40% by
echocardiogram 01/2022 and COPD who presents with Ventricular tachycardia with ICD pacing and shock.
Acute Delirium
- Improved now.
- High risk of ing.
- Placement to SNF - pending
Ventricular tachycardia on 06/25:
- Pt with Medtronic single chamber ICD placed in Sep 2022 for vtach
- Required 3 antitachycardia pacings, and then one shock
- Unlikely ischemic origin given stable LHC
- On amiodarone - With Severe CKD, Pradaxa is contraindicated with concomitant with Amiodarone. Pradaxa is switched to Eliquis.
- Plan for Amiodarone 400 mg BID for one week then 200 mg BID
HFrEF:
Ischemic cardiomyopathy:
- EF 30-35%.
- recent hospitalization for acute exacerbation. Now resolved.
- Bumex held for now, pt appears dry,
- Hypotensive - will change the Coreg to Toprol 12.5 mg BID and Isordil to Imdur 30 a day.
- If hypotensive then can stop imdur.
RACHELE
- Acute on chronic CKD IV
- Cr is coming down.
- Cr was 3.1 at admission post shock
- Cr is 2.2 today and trending down. Baseline is 2.3-2.4
Valvular disease;
- Bicuspid AV with severe and dilated ascending aorta s/p bioprosthetic SAVR (#27 Braden 2800)
- Aortic root dilation s/p aortic root replacement (#30 Hemashield [place] tube graft)
CAD
- stable L heart cath 03/22/2024 with patent LOGAN to mid LAD, patent SVG to RPDA, stable from prior cath
- Continue aspirin and carvedilol
- Continue high intensity statin
Px-Afib:
- Switched pradaxa to Eliquis.
Non-ischemic cardiomyopathy:
- Peak 0.142
- ICD shock related vs VT.
- RACHELE on CKD.
DATA:
Cardiac cath 03/22/2024:
1. Right dominant circulation with an 80% lesion in the mid LAD followed by a 60% lesion in the more distal mid LAD and a chronic total occlusion of the proximal right coronary artery through the bifurcation, status post prior bypass (patent LOGAN
to mid LAD, patent SVG to RPDA, backfilling the large RPL), grossly unchanged from prior cardiac catheterization (09/17/2022).
2. Status post bioprosthetic aortic valve replacement without significant gradient on pullback.
3. Moderately elevated filling pressures (LVEDP = 20 mmHg, PCWP = 21 mmHg at 88.9 kg), likely appropriate given his known degree of LV dysfunction (LVEF 30-35%).
4. 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
5. Single-chamber ICD is observed.
Echo 03/20/2024:
Asymmetric septal hypertrophy. Severely reduced left ventricular systolic function. Left ventricular ejection fraction is 30-35%. Global hypokinesis with akinesis of the basal inferior wall.
Mitral valve opens normally. Thickened mitral valve leaflets with mild mitral regurgitation.
Normally functioning bioprosthetic aortic valve with mean gradients across the aortic valve of 5 mmHg.
Moderate tricuspid regurgitation. Estimated pulmonary artery pressure of 38 mmHg.
The ascending aorta and aortic arch are of normal size.
Physical Exam
Vital Signs/Labs
Vital Signs
Temp Pulse Resp BP Pulse Ox
98.2 F 63 16 87/51 94
06/30/24 08:05 06/30/24 07:31 06/30/24 08:05 06/30/24 08:05 06/30/24 08:05
06/29/24 06/30/24 07/01/24
06:59 06:59 06:59
Actual Weight 83.8 kg
06/30/24 03:35
06/30/24 03:35
Magnesium 2.4 mg/dl (1.6-2.3) H 06/30/24 03:35
06/26/24
13:00
Zso-N-Uyovbzmshjm Pept 4560
Physical Exam
Constitutional: No acute distress and Comfortable
EENT: Anicteric and Moist mucous membranes
Cardiovascular: Rhythm & rate is regular, Pedal edema is absent and JVD pressure is normal
Respiratory: Respiratory effort normal and Lungs clear to auscul.
GI: Soft, Non tender and Normal bowel sounds
Neuro/Psych: Alert, Oriented and Other (left eye blindness)
Data Reviewed
-
Date of Service: June 30, 2024
Medical Decision Making: Reviewed Test Results, Test Interpretation and Review of Case with other Provider
EKG: Tracing Personally Visualized and interpreted
Labs: Labs Reviewed by me
Old Records: Reviewed
--- NOTE | 2024-06-30 08:41 | PTCARENOTE ---
Addendum entered by Diana Cronin RN 06/30/24 14:45:
Dr Jose aware.
Original Note:
Pt BP 87/51 this morning, Coreg and Isordil not given as per parameters. Pt denies symptoms, no lightheadedness.
--- NOTE | 2024-06-30 13:51 | CM ---
Addendum entered by LOLY Olivier 06/30/24 16:53:
Spoke again w/ [facility]. They have definite bed for Fri. However, something can open up on . Will attempt auth tomorrow in anticipation of Friday
Addendum entered by LOLY Olivier 06/30/24 15:15:
[facility] able to accept. Likely bed tomorrow or Fri. Met w/ patient, spouse. They are agreeable to rehab @ [facility].
Will need auth. Awaiting bed availability.
Original Note:
CM following for DC planning needs.
Reviewed chart for DC planning needs. Pt. is being recommended for SNF placement. Pt. has been resistant to this.
Met w/ patient this morning and then again after therapy session w/ spouse.
Pt. is now agreeable to rehab placement for short term.
We discussed options and contracted facilities w/ patient's insurance. Preference is for [facility]. Did, however, make referrals to alternative facilities to include [facility], [facility] and [facility]. Will await responses.
Goal is for SNF @ [facility].
Will need insurance auth.
updated.
[2024-06-30] MEDS: TOPROL XL 12.5 MG PO (19:23)
[2024-06-30] MEDS: LIPITOR 40 MG PO (21:39)
[2024-06-30] MEDS: NEURONTIN 600 MG PO (21:40)
--- NOTE | 2024-06-30 23:53 | PTCARENOTE ---
Assumed care of the pt @ 1900 V-paced on the monitor VSS Tylenol given for headache. Call erazo within reach bed alarm in use
[2024-07-01] VITALS (12 sets, daily range): BP systolic 78–120; BP diastolic 53–77
[2024-07-01 04:11] LABS: % Basophils 0.6 % (0-2); % Immature Granulocytes 0.3 % (0-0.5); % Lymphocytes 10.9 % (20.5-51.1); % Monocytes 9.1 % (1.7-9.3); % Neutrophils 76.1 % (42.2-75.2); Absolute Basophils 0.1 10^3/uL (0-0.2); Absolute Eosinophils 0.3 10^3/uL (0-0.7); Absolute Monocytes 0.8 10^3/uL (0.1-0.6); Absolute Neutrophils 7.1 10^3/uL (1.4-6.5); Hematocrit 34.4 % (39.0-52.0); Hemoglobin 11.6 g/dL (13.0-18.0); Mean Corp Hgb Conc. 33.7 g/dL (33.0-37.0); Mean Corpuscular Hgb 28.7 pg (27.0-31.0); Mean Corpuscular Volume 85.1 fL (80.0-94.0); Mean Platelet Volume 10.4 fL (7.4-10.4); Nucleated Red Blood Cells % 0 % (-); Platelet Count 218 10^3/uL (130-400); Red Blood Cell Count 4.04 10^6/uL (4.70-6.10); Red Cell Dist. Width 16.4 % (11.5-14.5); White Blood Cell Count 9.3 10^3/uL (4.8-10.8)
[2024-07-01 04:25] LABS: ALT (SGPT) 15 U/L (0-50); AST (SGOT) 14 U/L (17-59); Albumin 3.5 g/dl (3.5-5.0); Alkaline Phosphatase 134 U/L (38-126); Blood Urea Nitrogen 43 mg/dl (9-20); Calcium 9.7 mg/dl (8.4-10.2); Carbon Dioxide 27 mmol/L (22-30); Chloride 105 mmol/L (98-107); Estimated Creatinine Clearance 31 ml/min; Glucose 108 mg/dl (70-99); Potassium 3.9 mmol/L (3.5-5.1); Sodium 137 mmol/L (135-145); Total Bilirubin 0.8 mg/dl (0.2-1.3); Total Protein 6.3 g/dl (6.3-8.2); eGFR 29.91
[2024-07-01] MEDS: SYMBICORT 160/4.5 MCG INHALER 2 PUFF INH ×2 (08:11→20:17)
[2024-07-01] MEDS: SPIRIVA RESPIMAT 2.5 MCG 2 PUFF INH (08:11)
[2024-07-01] MEDS: PACERONE 400 MG PO ×2 (08:34→19:34)
[2024-07-01] MEDS: ELIQUIS 5 MG PO ×2 (08:34→19:34)
[2024-07-01] MEDS: NEURONTIN 300 MG PO (08:34)
[2024-07-01] MEDS: MAGNESIUM OXIDE 500 MG PO (08:35)
[2024-07-01] MEDS: PROTONIX 40 MG PO ×2 (08:35→19:34)
[2024-07-01] MEDS: TYLENOL 1000 MG PO (08:35)
[2024-07-01] MEDS: VITAMIN B-6 50 MG PO (08:35)
[2024-07-01] MEDS: VITAMIN C 500 MG PO (08:35)
[2024-07-01] MEDS: TOPROL XL 12.5 MG PO ×2 (08:35→19:34)
--- NOTE | 2024-07-01 08:43 | PTCARENOTE ---
received patient this am in bed, had to help patient set up his morning breakfast. monitor shows V paced, VSS. skin tears on bilateral arms, right [place] and bilat. heel protectors on, with new dressings from car shifter were changed this am. lung
cerna are diminished on RA. patient is very weak. INT in right wrist flushes well. foul smelling urine. patient c/o frontal headache, Tylenol po given as ordered.
--- NOTE | 2024-07-01 10:53 | W.PN.HOSP.TC ---
Today's Communication/Plan
-
See plan
Assessment / Plan
Assessment / Plan
Physical Exam
General: Not in acute distress
HEENT: Normocephalic
Respiratory: Clear to Auscultation Bilaterally
Cardiac: Regular Rhythm and S1/S2
GI: Soft, Nontender and Nondistended. Positive bowel sounds.
Musculoskeletal: Other (Diffuse ecchymosis upper and lower extremity)
Neuro: Awake, Alert and Oriented
Assessment/Plan
# Hypotension
Generalized weakness
-Likely secondary to blood pressure control medication/diuretics
-Patient got fluid trial in ER, would avoid further IV fluid
-Holding Bumex for now.
-Stop Imdur due to persistent hypotension -- SBP was in the 70s and 80s while patient was lying down, on 06/30/24 morning
-Coreg switched to Metoprolol
#Chest Heaviness 07/01/24 morning
-EKG showed paced rhythm
-CXR with possible pneumonia vs. atelectasis but patient has no leukocytosis, fever or any other signs/symptoms or pneumonia
-Symptoms resolved with sitting up
-Related to GERD? Component of CHF?
-Patient's Kayleigh reported that patient retains fluid in his abdomen from CHF -- will consider checking for abdominal ascites
-Trend troponins
#Periods of Sleep Apnea
- described patient as someone with Favio Toro breathing
-Patient also has COPD
-Discussed with cardiology and wondering if patient's symptoms of chest heaviness while lying down has pulmonary component
-Requested records from patient's pulmonary office (Dr. Brandi Dave in [place] -- )
-Consult pulmonary, appreciate their evaluation and recommendations
#Delirium
-Continue to monitor
# V-fib episode resulting in shock
-This happened day before admission
-Device interrogation report in chart
- EP cardiology evaluated and patient was started on amiodarone drip; plan for Amiodarone 400 mg BID for one week and then Amiodarone 200 mg BID
- Keep potassium above 4 and magnesium above 2
# Hypokalemia
- Patient got 60 mEq of potassium in the night for potassium of 2.8. Magnesium 2.2
- recheck BMP
# RACHELE on CKD 4
- Creatinine overall improved
- likely secondary to hypotension/Bumex
- IV fluids previously given, blood pressures improved so hold further fluids
- Hold Bumex
# Fall with head injury
- CT head showed no acute abnormality
# Nonischemic myocardial injury secondary to hypotension
- Troponin of 0.142, continue to trend
- EKG shows wide QRS rhythm, left bundle branch block which is old
#Chronic HFrEF/ischemic cardiomyopathy with ICD
-Chest x-ray shows no acute cardiopulmonary process
-Hold Bumex since patient appears hypovolemic to euvolemic
-Continue Coreg and isosorbide dinitrate
#Paroxysmal atrial fibrillation
-Pradaxa replaced with Eliquis since patient has CKD and is on Amiodarone
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
CAD - Continue isosorbide dinitrate, Aspirin and Carvedilol, and Atorvastatin 40 mg HS
COPD - Continue albuterol, budesonide, Trelegy
Hyperlipidemia - Continue statin
GERD
Neuropathy - Continue gabapentin
Full code
DVT prophylaxis�Eliquis
On 06/30/24, I spoke with patient's inside patient's room and answered all her questions and concerns to satisfaction.
On 07/01/24, I spoke with patient's over the phone and answered all her questions and concerns to satisfaction.
Anticipated Discharge: 24 - 48 hours
Subjective/Interval History
-
Date of Service: July 01, 2024
Patient was seen and examined. He reported significant chest heaviness this morning around 10:35 AM, which later resolved.
Objective Data
-
Labs:
Laboratory Results
07/01/24
03:53
WBC 9.3
Hgb 11.6 L
Hct 34.4 L
Plt Count 218
Sodium 137
Potassium 3.9
Chloride 105
Carbon Dioxide 27
BUN 43 H
Creatinine 2.2 H
Glucose 108 H
Calcium 9.7
Total Bilirubin 0.8
AST 14 L
ALT 15
Alkaline Phosphatase 134 H
Vital Signs:
Vital Signs
Temp Pulse Resp BP Pulse Ox
97.8 F 60 16 117/63 96
07/01/24 06:52 07/01/24 10:00 07/01/24 08:14 07/01/24 08:35 07/01/24 08:30
I&O
06/30/24 07/01/24 07/02/24
06:59 06:59 06:59
Intake Total 400 / 400 120 / 120
Output Total 1225 / 1225 900 / 900
Balance -825 / -825 -780 / -780
[2024-07-01] MEDS: NITROSTAT (SUBLINGUAL) 0.4 MG SL (10:54)
--- NOTE | 2024-07-01 11:18 | PTCARENOTE ---
patient called out c/o heaviness in chest, 'no pain', hospitalist aware and Dr. Goff aware, EKG done and shown to Dr. Goff, 1 SLNTG given, now BP 78/53, retaken 109/64 HR 61, sl didn't help with chest pressure, portable chest xray completed
and troponin drawn. o2 sat on RA 94%, put o2 2LNC on for comfort.
--- NOTE | 2024-07-01 11:24 | W.PN.CD ---
Today's Communication / Plan
-
Chest discomfort called to evaluate chest discomfort patient laying flat sided mostly like he noticed some mild shortness of breath and a sensation in his chest. Symptoms have been going on for 5 or 10 minutes prior to notifying the nurse. He did
not appear to be in distress ECG shows paced rhythm had the patient sit up and within 5 minutes after sitting up symptoms resolved. No current chest discomfort. Weights appear to be stable possible could have some symptoms related to component of
heart failure patient was diuretic has been held. Overnight isosorbide has been off due to lower blood pressures. His last cath had patent grafts and no new obstructive disease requiring intervention.
- Check serial troponins
- Chest x-ray
- Will determine if patient needs additional diuretic
Impression / Plan
-
79-year-old male with bicuspid aortic valve, [place] and PCI 2004, bioprosthetic aortic valve replacement and coronary artery bypass grafting and ascending aortic tube graft 2017, CKD, atrial fibrillation, cardiomyopathy with ejection fraction 40% by
echocardiogram 01/2022 and COPD who presents with Ventricular tachycardia with ICD pacing and shock.
Chest discomfort called to evaluate chest discomfort patient laying flat sided mostly like he noticed some mild shortness of breath and a sensation in his chest. Symptoms have been going on for 5 or 10 minutes prior to notifying the nurse. He did
not appear to be in distress ECG shows paced rhythm had the patient sit up and within 5 minutes after sitting up symptoms resolved. No current chest discomfort. Weights appear to be stable possible could have some symptoms related to component of
heart failure patient was diuretic has been held. Overnight isosorbide has been off due to lower blood pressures. His last cath had patent grafts and no new obstructive disease requiring intervention.
- Check serial troponins
- Chest x-ray
- Will determine if patient needs additional diuretic
Acute Delirium
- Improved now.
- Placement to SNF - pending
Ventricular tachycardia on 06/25:
- Pt with Medtronic single chamber ICD placed in Sep 2022 for vtach
- Required 3 antitachycardia pacings, and then one shock
- Unlikely ischemic origin given stable LHC
- On amiodarone - With Severe CKD, Pradaxa is contraindicated with concomitant with Amiodarone. Pradaxa is switched to Eliquis.
- Plan for Amiodarone 400 mg BID for one week then 200 mg BID
HFrEF:
Ischemic cardiomyopathy:
- EF 30-35%.
- recent hospitalization for acute exacerbation. Now resolved.
- Bumex held for now, pt appears dry,
- Beta-jade was adjusted and isosorbide stopped due to lower blood pressure earlier this admit
RACHELE
- Acute on chronic CKD IV
- Cr is coming down.
- Cr was 3.1 at admission post shock
- Creatinine then improved
Valvular disease;
- Bicuspid AV with severe and dilated ascending aorta s/p bioprosthetic SAVR (#27 Braden 2800)
- Aortic root dilation s/p aortic root replacement (#30 [employer] [place] tube graft)
CAD
- stable L heart cath 03/22/2024 with patent LOGAN to mid LAD, patent SVG to RPDA, stable from prior cath
- Continue aspirin and carvedilol
- Continue high intensity statin
Px-Afib:
- Switched pradaxa to Eliquis.
Non-ischemic cardiomyopathy:
- Peak 0.142
- ICD shock related vs VT.
- RACHELE on CKD.
DATA:
Cardiac cath 03/22/2024:
1. Right dominant circulation with an 80% lesion in the mid LAD followed by a 60% lesion in the more distal mid LAD and a chronic total occlusion of the proximal right coronary artery through the bifurcation, status post prior bypass (patent LOGAN
to mid LAD, patent SVG to RPDA, backfilling the large RPL), grossly unchanged from prior cardiac catheterization (09/17/2022).
2. Status post bioprosthetic aortic valve replacement without significant gradient on pullback.
3. Moderately elevated filling pressures (LVEDP = 20 mmHg, PCWP = 21 mmHg at 88.9 kg), likely appropriate given his known degree of LV dysfunction (LVEF 30-35%).
4. 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
5. Single-chamber ICD is observed.
Echo 03/20/2024:
Asymmetric septal hypertrophy. Severely reduced left ventricular systolic function. Left ventricular ejection fraction is 30-35%. Global hypokinesis with akinesis of the basal inferior wall.
Mitral valve opens normally. Thickened mitral valve leaflets with mild mitral regurgitation.
Normally functioning bioprosthetic aortic valve with mean gradients across the aortic valve of 5 mmHg.
Moderate tricuspid regurgitation. Estimated pulmonary artery pressure of 38 mmHg.
The ascending aorta and aortic arch are of normal size.
Physical Exam
Vital Signs/Labs
Vital Signs
Temp Pulse Resp BP Pulse Ox
97.8 F 60 16 117/63 96
07/01/24 06:52 07/01/24 10:00 07/01/24 08:14 07/01/24 08:35 07/01/24 08:30
07/01/24 03:53
07/01/24 03:53
Magnesium 2.4 mg/dl (1.6-2.3) H 06/30/24 03:35
06/26/24
13:00
[id number] Pept 4560
Physical Exam
Constitutional: No acute distress
Cardiovascular: Rhythm & rate is regular
Respiratory: Wheeze Absent and Crackles Absent
GI: Soft
Neuro/Psych: Alert
Data Reviewed
-
Date of Service: July 01, 2024
Medical Decision Making: Reviewed Test Results
Echo: Report Reviewed by me
X-Ray/CT/US/MRI/NUC/PET: Report Reviewed by me
Medical Tests (PFT, Pathology etc): Image Personally Visualized and interpreted
Labs: Labs Reviewed by me
[2024-07-01 11:52] LABS: Troponin I 0.045 ng/ml
--- NOTE | 2024-07-01 14:44 | CM ---
[facility] now unable to accept pt.
I have met with patient and spouse and offered [facility] or [facility] as alternative options. Spouse disappointed about [facility] but will consider these options.
Will follow up on Friday AM regarding medical status and will coordinate transfer if stable.
Will need family choice + insurance auth.
--- NOTE | 2024-07-01 15:35 | PTCARENOTE ---
Addendum entered by Tanya Ca RN 07/01/24 18:39:
Dr. Kwong talked to Kayleigh, on phone [phone], and talked to about code status, she replied DNR, but when Dr. Kwong went in to speak with patient he changed his mind and wants to be full code, therefore patient remains full code.
Original Note:
is at bedside, patient has been lethargic all day and can easily be woken up. I TT Dr. jose that patient and his would like a DNR status, TT Dr. Jose to come talk to and patient.
[2024-07-01] MEDS: LIPITOR 40 MG PO (23:07)
[2024-07-01] MEDS: NEURONTIN 600 MG PO (23:07)
[2024-07-01 23:34] LABS: Troponin I 0.042 ng/ml
[2024-07-02] VITALS (13 sets, daily range): BP systolic 95–118; BP diastolic 51–81; PULSE 61; O2SAT 93; BMI 24.4
[2024-07-02] MEDS: TYLENOL 1000 MG PO ×2 (00:09→17:53)
[2024-07-02 03:48] LABS: % Basophils 0.9 % (0-2); % Eosinophils 2.7 % (0-6); % Immature Granulocytes 0.5 % (0-0.5); % Monocytes 10.2 % (1.7-9.3); % Neutrophils 73.7 % (42.2-75.2); Absolute Basophils 0.1 10^3/uL (0-0.2); Absolute Eosinophils 0.3 10^3/uL (0-0.7); Absolute Immature Granulocytes 0.1 10^3/uL (0-0.05); Absolute Lymphocytes 1.1 10^3/uL (1.2-3.4); Absolute Neutrophils 6.8 10^3/uL (1.4-6.5); Hematocrit 34.2 % (39.0-52.0); Hemoglobin 11.5 g/dL (13.0-18.0); Mean Corp Hgb Conc. 33.6 g/dL (33.0-37.0); Mean Corpuscular Hgb 28.8 pg (27.0-31.0); Mean Corpuscular Volume 85.7 fL (80.0-94.0); Mean Platelet Volume 10.9 fL (7.4-10.4); Nucleated Red Blood Cells % 0 % (-); Platelet Count 263 10^3/uL (130-400); Red Blood Cell Count 3.99 10^6/uL (4.70-6.10); Red Cell Dist. Width 16.5 % (11.5-14.5); White Blood Cell Count 9.3 10^3/uL (4.8-10.8)
[2024-07-02 04:21] LABS: Troponin I 0.046 ng/ml
--- NOTE | 2024-07-02 04:32 | PTCARENOTE ---
Tele remains Vpaced, HR in the 60's. Pt denies any CP, but does c/o SOB. Pulse ox sating 94-95% RA. Pt has an occasional cough. Lungs decreased throughout. Instructed pt to perform some deep breathing exercises. Call erazo in reach.
[2024-07-02 05:02] LABS: ALT (SGPT) 16 U/L (0-50); AST (SGOT) 14 U/L (17-59); Albumin 3.3 g/dl (3.5-5.0); Alkaline Phosphatase 128 U/L (38-126); Blood Urea Nitrogen 42 mg/dl (9-20); Calcium 9.7 mg/dl (8.4-10.2); Carbon Dioxide 27 mmol/L (22-30); Chloride 105 mmol/L (98-107); Estimated Creatinine Clearance 33 ml/min; Glucose 108 mg/dl (70-99); Magnesium 2.4 mg/dl (1.6-2.3); Potassium 3.9 mmol/L (3.5-5.1); Sodium 136 mmol/L (135-145); Total Bilirubin 0.7 mg/dl (0.2-1.3); eGFR 31.63
[2024-07-02] MEDS: SYMBICORT 160/4.5 MCG INHALER 2 PUFF INH ×2 (07:33→17:27)
[2024-07-02] MEDS: SPIRIVA RESPIMAT 2.5 MCG 2 PUFF INH (07:33)
--- NOTE | 2024-07-02 07:56 | W.PN.CD ---
Addendum entered and electronically signed by Keron Goff MD 07/03/24 12:29:
Correction below patient has been on Eliquis and has not been on aspirin. This is also consistent with his discharge records from 06/22/2024 and his last outpatient visit 04/14/2024. Will just remain on Eliquis
Original Note:
Today's Communication / Plan
-
comfortable thismorning. NO chest discomfort.
.
- Bumex held post cath . there has been an increase in weight since cath. With his HFrEF and CKD will nguyễn diuretic. Reviewed with his primary bone tender Dr Snow. he was on Bumex 3mg BID on admit. Will place on Bumex 2mg BID and montior weights
and labs
Impression / Plan
-
79-year-old male with bicuspid aortic valve, [place] and PCI 2004, bioprosthetic aortic valve replacement and coronary artery bypass grafting and ascending aortic tube graft 2017, CKD, atrial fibrillation, cardiomyopathy with ejection fraction 40% by
echocardiogram 01/2022 and COPD who presents with Ventricular tachycardia with ICD pacing and shock.
Chest discomfort improved with sitting up ,may have been more of a respiratory sensation. No recurrent CP
.
HFrEF:
Ischemic cardiomyopathy:
- EF 30-35%.
- recent hospitalization for acute exacerbation. Now resolved.
- Bumex heldpost cath . there has beenan increase in weight since cath. With his HFrEF and CKD will nguyễn diuretic. Reviewed with his primary bone tender Dr Snow. he was on Bumex 3mg BID on admit. Will place on Bumex 2mg BID and montior weights
and labs
- Beta-jade was adjusted and isosorbide stopped due to lower blood pressure earlier this admit
Acute Delirium
- Improved now.
- Placement to SNF - pending
Ventricular tachycardia on 06/25:
- Pt with Medtronic single chamber ICD placed in Sep 2022 for vtach
- Required 3 antitachycardia pacings, and then one shock
- Unlikely ischemic origin given stable LHC
- On amiodarone - With Severe CKD, Pradaxa is contraindicated with concomitant with Amiodarone. Pradaxa is switched to Eliquis.
- Plan for Amiodarone 400 mg BID for one week then 200 mg BID
RACHELE
- Acute on chronic CKD IV
- Cr is coming down.
- Cr was 3.1 at admission post shock
- Creatinine then improved
Valvular disease;
- Bicuspid AV with severe and dilated ascending aorta s/p bioprosthetic SAVR (#27 Braden 2800)
- Aortic root dilation s/p aortic root replacement (#30 [employer] [place] tube graft)
CAD
- stable L heart cath 03/22/2024 with patent LOGAN to mid LAD, patent SVG to RPDA, stable from prior cath
- Continue aspirin and carvedilol
- Continue high intensity statin
Px-Afib:
- Switched pradaxa to Eliquis.
Non-ischemic cardiomyopathy:
- Peak 0.142
- ICD shock related vs VT.
- RACHELE on CKD.
DATA:
Cardiac cath 03/22/2024:
1. Right dominant circulation with an 80% lesion in the mid LAD followed by a 60% lesion in the more distal mid LAD and a chronic total occlusion of the proximal right coronary artery through the bifurcation, status post prior bypass (patent LOGAN
to mid LAD, patent SVG to RPDA, backfilling the large RPL), grossly unchanged from prior cardiac catheterization (09/17/2022).
2. Status post bioprosthetic aortic valve replacement without significant gradient on pullback.
3. Moderately elevated filling pressures (LVEDP = 20 mmHg, PCWP = 21 mmHg at 88.9 kg), likely appropriate given his known degree of LV dysfunction (LVEF 30-35%).
4. 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
5. Single-chamber ICD is observed.
Echo 03/20/2024:
Asymmetric septal hypertrophy. Severely reduced left ventricular systolic function. Left ventricular ejection fraction is 30-35%. Global hypokinesis with akinesis of the basal inferior wall.
Mitral valve opens normally. Thickened mitral valve leaflets with mild mitral regurgitation.
Normally functioning bioprosthetic aortic valve with mean gradients across the aortic valve of 5 mmHg.
Moderate tricuspid regurgitation. Estimated pulmonary artery pressure of 38 mmHg.
The ascending aorta and aortic arch are of normal size.
Physical Exam
Vital Signs/Labs
Vital Signs
Temp Pulse Resp BP Pulse Ox
97.9 F 61 16 110/68 95
07/02/24 07:14 07/02/24 07:36 07/02/24 07:36 07/02/24 02:42 07/02/24 07:14
07/01/24 07/02/24 07/03/24
06:59 06:59 06:59
Actual Weight 84 kg
07/02/24 03:17
07/02/24 04:24
Magnesium 2.4 mg/dl (1.6-2.3) H 07/02/24 04:24
06/26/24
13:00
Phg-[id number]-Gwyvokkjsnd Pept 4560
LAB Results
07/01/24 07/01/24 07/01/24
11:17 16:45 23:01
Troponin I 0.045 H* 0.050 H* 0.042 H*
07/02/24
03:17
Troponin I 0.046 H*
Physical Exam
Constitutional: No acute distress
Cardiovascular: Rhythm & rate is regular
Respiratory: Wheeze Absent and Rhonchi Absent
GI: Soft
Neuro/Psych: Alert
Data Reviewed
-
Date of Service: July 02, 2024
Medical Decision Making: Reviewed Test Results
X-Ray/CT/US/MRI/NUC/PET: Report Reviewed by me
Medical Tests (PFT, Pathology etc): Report Reviewed by me
Labs: Labs Reviewed by me
[2024-07-02] MEDS: TOPROL XL 12.5 MG PO (08:20)
[2024-07-02] MEDS: NEURONTIN 300 MG PO (08:20)
[2024-07-02] MEDS: PROTONIX 40 MG PO ×2 (08:20→20:15)
[2024-07-02] MEDS: VITAMIN C 500 MG PO (08:21)
[2024-07-02] MEDS: ELIQUIS 5 MG PO ×2 (08:21→20:16)
[2024-07-02] MEDS: PACERONE 400 MG PO ×2 (08:21→20:16)
[2024-07-02] MEDS: VITAMIN B-6 50 MG PO (08:21)
[2024-07-02] MEDS: BUMEX 2 MG PO ×2 (09:18→20:15)
--- NOTE | 2024-07-02 10:00 | PTCARENOTE ---
Pt ambulatory w/ walker and 1 standby assist. Pt encouraged to move and turn in bed and sit in the chair for meals. Pt sat in the recliner for meals and walked to the stretcher for testing. Q2H turning schedule discontinued as pt turning, walking
and oob. Pt w/ multiple skin tears but no pressure wounds noted. Will monitor.
--- NOTE | 2024-07-02 10:16 | CON.PUL ---
Consultation
Consultation Request
Date/Time Consultation Requested: 07/02/24
Date/Time Consultation Performed: 07/02/24
Performing Provider: Lali
Reason for Consultation: SOB
Medical History
-
History of Present Illness:
Patient is a 79 year old M with history of chronic HFrEF/ischemic cardiomyopathy with ICD, paroxysmal atrial fibrillation on Pradaxa, bicuspid aortic valve with severe aortic stenosis and dilated ascending aorta status post bioprosthetic AVR, aortic
root replacement, CAD, CKD 4, COPD presenting to for weakness, hypotension following recent admission and discharge on 06/22/24. He is re-admitted again 06/26/24. He notes ongoing SOB but similar to prior admission, with worsening complaints with
sitting or laying down due to abdominal distention. This is similar and unchanged. US Abd had been completed without ascites amenable to tap. AXR showing moderate colonic stool burden.
Recent records from [facility] reviewed, last PFT in 2023 showing mild obstruction. He is seen there regularly and maintained on Trelegy. He has had several walk testing not showing need for O2 at rest or with exertion.
He is managed with diuresis while here.
He was recommended to obtain a sleep study but did not wish to pursue due to financial cost. He is not known to be on home CPAP.
Past Medical History
Past Medical History: Other (see list below)
Social History
Tobacco: Non-smoker
Alcohol: None
Drug: None
Family History
Family History: Reviewed & Not Pertinent
Allergies / Home Medications
Allergies
Allergy/AdvReac Type Severity Reaction Status Date / Time
codeine [Codeine] Allergy nausea Verified 06/26/24 12:57
vomiting
Penicillins Allergy Hives, Verified 06/26/24 12:57
swelling,
tolerated
ceftriaxone
Feb 2020
Home Medications
�Medication �Instructions �Recorded �Confirmed �Last Taken �Type
atorvastatin 40 mg tablet 40 mg PO HS High cholesterol 04/25/22 06/26/24 06/25/24 History
gabapentin 300 mg capsule 600 mg PO HS neuropatic pain 03/14/23 06/26/24 06/25/24 History
magnesium oxide 400 mg PO Q48H Electrolyte 03/14/23 06/26/24 06/17/24 History
Repletion
acetaminophen 500 mg tablet 1,000 mg PO Q6HPRN PRN mild pain 04/01/23 06/26/24 06/26/24 History
(Tylenol Extra Strength)
pyridoxine (vitamin B6) 50 mg 50 mg PO DAILY Supplement 04/01/23 06/26/24 06/26/24 History
tablet (Vitamin B-6)
albuterol sulfate 2.5 mg/3 mL 2.5 mg inhalation R Q48H 12/08/23 06/26/24 06/17/24 History
(0.083 %) solution for nebulization Lung/Breathing Issues
ascorbic acid (vitamin C) 500 mg 500 mg PO DAILY Supplement 12/08/23 06/26/24 06/26/24 History
tablet (Vitamin C)
budesonide 0.5 mg/2 mL suspension 0.5 mg inhalation R Q48H 12/08/23 06/26/24 06/17/24 History
for nebulization Lung/Breathing Issues
fluticasone fur. 200 mcg-umeclid 1 inh inhalation R Q48H 12/08/23 06/26/24 06/26/24 History
62.5 mcg-vilant 25 mcg Lung/Breathing Issues
inhalat.powder (Trelegy Ellipta)
gabapentin 300 mg capsule 300 mg PO DAILY neuropathic pain 12/08/23 06/26/24 06/26/24 History
ipratropium bromide 0.02 % 2.5 ml inhalation R Q48H Allergies 12/08/23 06/26/24 06/17/24 History
solution for inhalation
dabigatran etexilate 75 mg capsule 75 mg PO BID Blood clot 12/16/23 06/26/24 06/26/24 Rx
(Pradaxa) prevention/tx 30 days #30 caps
pantoprazole 40 mg tablet,delayed 40 mg PO BID Gastrointestinal 12/16/23 06/26/24 06/26/24 Rx
release issue #60 tabs
potassium chloride 20 mEq 20 meq PO BID Electrolyte 12/16/23 06/26/24 06/26/24 Rx
tablet,extended release Repletion 30 days #60 tabs
carvedilol 3.125 mg tablet 3.125 mg PO BID Blood Pressure 06/18/24 06/26/24 06/26/24 History
isosorbide dinitrate 10 mg tablet 10 mg PO TID #90 tabs 06/22/24 06/26/24 06/26/24 Rx
bumetanide 1 mg tablet 3 mg PO DAILY Fluid 06/27/24 06/26/24 06/26/24 History
Retention/Swelling
Review of Systems
-
History Source: Patient
All other systems: Negative unless noted
Vitals / Labs / Diagnostic Testing
Vital Signs
Temp Pulse Resp BP Pulse Ox
97.9 F 60 16 118/64 95
07/02/24 07:14 07/02/24 09:18 07/02/24 07:36 07/02/24 09:18 07/02/24 07:14
Lab Data
07/02/24 03:17
07/02/24 04:24
Diagnostic Testing:
Physical Exam
-
HEENT: Normocephalic, Anicteric and Moist Mucous Membranes
Cardiovascular: S1/S2 and Regular Rhythm
Respiratory: Clear and Non-Labored Respirations
GI: Soft, Distended and Non Tender
Neurology: Awake, Alert, Oriented and No Motor Deficits
Skin: Warm, Dry and Good Color
General: Comfortable, Other (NAD, chronically ill appearing) and Other (weakness/deconditioning noted)
Assessment
-
Patient is a 79 year old M with history of chronic HFrEF/ischemic cardiomyopathy with ICD, paroxysmal atrial fibrillation on Pradaxa, bicuspid aortic valve with severe aortic stenosis and dilated ascending aorta status post bioprosthetic AVR, aortic
root replacement, CAD, CKD 4, COPD presenting to for weakness, hypotension following recent admission and discharge on 06/22/24. He is re-admitted again 06/26/24. He notes ongoing SOB but similar to prior admission, with worsening complaints with
sitting or laying down due to abdominal distention. This is similar and unchanged. US Abd had been completed without ascites amenable to tap. AXR showing moderate colonic stool burden. We are consulted for evaluation.
Acute HF exacerbation
SOB, due to abdominal distention
Emphysema/moderate COPD: FEV1 04/03/2023 2.33 L or 72% of predicted.
Not in acute exacerbation
Conditions present prior admission:
History of COPD/Emphysema moderate-on Trelegy as OP. Does not follow-up locally/Follows up with primary care.
Moderate obstruction on PFT 2023, severe diffusion impairment, no O2 at home
Hypertension
Paroxysmal atrial fibrillation
Heart failure with preserved ejection fraction
Chronic kidney disease stage III
Lung cancer s/p resection in the distant past
Thyroid cancer
Left eye chronic blindness-childhood trauma
Status post CABG
Prior stents
ICD in place
Right upper lobe lobectomy
Partial thyroidectomy
Hernia repair
Laparoscopic bladder repair
Appendectomy
Plan
He is currently stable on RA, not known to be on home O2
Recent records from [facility] reviewed, last PFT in 2023 showing mild obstruction.
He is seen there regularly and maintained on Trelegy. He has had several walk testing not showing need for O2 at rest or with exertion.
He was recommended to obtain a sleep study but did not wish to pursue due to financial cost. He is not known to be on home CPAP.
Complaints of SOB, but he notes this is related to his abdominal distention, SOB with sitting and laying flat with belly pushing up
He is on room air
Clear lung exam
Not coughing
Able to speak in full sentences
Prior US Abd did not show ascites for tap
AXR showing moderate colic stool burden
Would start bowel regimen
Can repeat Abd US to ensure no new ascites
So far CXR/CT imaging showing no parenchymal abnormality other than emphysema.
No evidence for pneumonia. No pneumothorax. No evidence for pleuritis. No significant bony abnormalities.
Resumed on home inhalers
Likely CHF, with hepatic congestion/abdominal fluid retention
He also has stool burden
He is maintained on diuretics
Cards following
Agree with sleep study testing as OP
Can try CPAP as tolerated while here, will order
From my perspective he should continue on his inhalers
There is no indication for systemic corticosteroids.
Deconditioning is also likely a factor
He will benefit from pulmonary evaluation at some point in the outpatient setting.
PT/OT for eval
We will follow
Diagnostic Data:
Echocardiogram 03/20/2024:Report reviewed,Showed asymmetric septal hypertrophy. Severely reduced left ventricular systolic function. Left ventricular ejection fraction 30 to 35%. Global hypokinesis with akinesis of the basal inferior wall. Mitral
valve opens normally. Normal functioning bioprosthetic aortic valve. Moderate TR. Symmetric pulmonary pressure 30 mmHg. Aortic size normal
CTA 03/20/24- No CTA evidence for an aortic dissection, intramural hematoma, or aneurysm. Severe emphysema.
Previous CABG and placement of an aortic valve prosthesis left cardiac conduction device.
PFT 06/12/23 @[facility]: FEV1 2.2L 77%, FVC 4.31L 108%, ratio 51. Post FEV1 80%, TLC 82%, DLCO 24%. 6MWT showing O2 mehnaz 91%
PFT 06/06/17: FEV1 2.29L 69%, FVC 4.46L 98%, ratio 51. Post FEV1 2.75L 83% + BD-FEV1 response-20%; TLC 7.07L 96%, DLCO 38%
[facility] 04/03/23: FEV1 2.17l 67%, post FEV1 2.33L 72%--moderate obstruction
6MWT 04/01/23: O2 mehnaz 89% at 5 mins, 4/10, RA, HR max 88, 96% on RA
Total time spent on this consultation __75__ minutes which includes review of history, physical exam, medications, laboratory data, personal review of imaging, extensive review of outpatient records, discussion with care team and respiratory therapy.
--- NOTE | 2024-07-02 11:07 | W.PN.HOSP.TC ---
Today's Communication/Plan
-
Placement pending (spoke with case management and confirmed this)
Bowel regimen with Miralax
CPAP trial
Resume Bumex
Assessment / Plan
Assessment / Plan
Physical Exam
General: Not in acute distress
HEENT: Normocephalic
Respiratory: Clear to Auscultation Bilaterally
Cardiac: Regular Rhythm and S1/S2
GI: Soft, Nontender and Nondistended. Positive bowel sounds.
Musculoskeletal: Other (Diffuse ecchymosis upper and lower extremity)
Neuro: Awake, Alert and Oriented
Assessment/Plan
# Hypotension
Generalized weakness
-Likely secondary to blood pressure control medication/diuretics
-Patient got fluid trial in ER, would avoid further IV fluid
-Resume Bumex given weight gain (but at reduced dose of 2 mg BID compared to 3 mg BID previously)
-Previously stopped Imdur due to persistent hypotension -- SBP was in the 70s and 80s while patient was lying down, on 06/30/24 morning
-Coreg switched to Metoprolol
#Chest Heaviness 07/01/24 morning
-Abdomen pushing up is causing patient's shortness of breath -- bowel regimen as below, no ascites on abdominal ultrasound
-EKG showed paced rhythm
-CXR with possible pneumonia vs. atelectasis but patient has no leukocytosis, fever or any other signs/symptoms or pneumonia
-Symptoms resolved with sitting up
-Related to GERD? Component of CHF?
-Patient's Kayleigh reported that patient retains fluid in his abdomen from CHF -- will consider checking for abdominal ascites
-Trend troponins
#Periods of Sleep Apnea
- described patient as someone with Favio Toro breathing
-Patient also has COPD
-Discussed with cardiology and wondering if patient's symptoms of chest heaviness while lying down has pulmonary component
-Requested records from patient's pulmonary office (Dr. Brandi Dave in [place] -- )
-Consult pulmonary, appreciate their evaluation and recommendations: trial CPAP here, patient has previously not had sleep study done because of cost
#Constipation
-Bowel regimen
#Delirium
-Continue to monitor
# V-fib episode resulting in shock
-This happened day before admission
-Device interrogation report in chart
- EP cardiology evaluated and patient was started on amiodarone drip; plan for Amiodarone 400 mg BID for one week and then Amiodarone 200 mg BID
- Keep potassium above 4 and magnesium above 2
# Hypokalemia
- Patient got 60 mEq of potassium in the night for potassium of 2.8. Magnesium 2.2
- recheck BMP
# RACHELE on CKD 4
- Creatinine overall improved
- likely secondary to hypotension/Bumex
- IV fluids previously given, blood pressures improved so hold further fluids
- Hold Bumex
# Fall with head injury
- CT head showed no acute abnormality
# Nonischemic myocardial injury secondary to hypotension
- Troponin of 0.142, continue to trend
- EKG shows wide QRS rhythm, left bundle branch block which is old
#Chronic HFrEF/ischemic cardiomyopathy with ICD
-Chest x-ray shows no acute cardiopulmonary process
-Hold Bumex since patient appears hypovolemic to euvolemic
-Continue Coreg and isosorbide dinitrate
#Paroxysmal atrial fibrillation
-Pradaxa replaced with Eliquis since patient has CKD and is on Amiodarone
Lung Cancer (without chemo/rads) status post RUL removal
KIMMY
-Per pulmonary notes, patient was noted to be snoring, witnessed apneas, fatigue, heart failure and COPD
-Per notes, patient declined HST
-He was determined not to be a candidate for ASV or BIPAP/BUR
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
CAD - Continue isosorbide dinitrate, Aspirin and Carvedilol, and Atorvastatin 40 mg HS
COPD - Continue albuterol, budesonide, Trelegy
Hyperlipidemia - Continue statin
GERD
History of Gastric Ulcer (based on pulmonology records)
Neuropathy - Continue gabapentin
Dilated Aortic Root
DNR (patient stated, in the presence of his , on 07/02/24, that he wanted to be DNR)
DVT prophylaxis�Eliquis
On 06/30/24, I spoke with patient's inside patient's room and answered all her questions and concerns to satisfaction.
On 07/01/24, I spoke with patient's over the phone and answered all her questions and concerns to satisfaction.
On 07/02/24, I spoke with patient's over the phone and answered all her questions and concerns to satisfaction.
Anticipated Discharge: 24 - 48 hours
Subjective/Interval History
-
Date of Service: July 02, 2024
Patient was seen and examined. He reported feeling better today, denied any chest pain.
Objective Data
-
Labs:
Laboratory Results
07/02/24 07/02/24
03:17 04:24
WBC 9.3
Hgb 11.5 L
Hct 34.2 L
Plt Count 263 D
Sodium Cancelled 136
Potassium Cancelled 3.9
Chloride Cancelled 105
Carbon Dioxide Cancelled 27
BUN Cancelled 42 H
Creatinine Cancelled 2.1 H
Glucose Cancelled 108 H
Calcium Cancelled 9.7
Total Bilirubin Cancelled 0.7
AST Cancelled 14 L
ALT Cancelled 16
Alkaline Phosphatase Cancelled 128 H
Vital Signs:
Vital Signs
Temp Pulse Resp BP Pulse Ox
97.9 F 60 16 118/64 95
07/02/24 07:14 07/02/24 09:18 07/02/24 07:36 07/02/24 09:18 05/23/25 07:14
I&O
07/01/24 07/02/24 07/03/24
06:59 06:59 06:59
Intake Total 120 / 120 480 / 480 240 / 240
Output Total 900 / 900 950 / 950 300 / 300
Balance -780 / -780 -470 / -470 -60 / -60
[2024-07-02 11:31] LABS: B.E. 2.1 mmol/L; HCO3 25.3 mmol/L (21-28); O2 Saturation % 98.6 % (94-98); PCO2 34 mmHg (35-48); PO2 82 mmHg (83-108); pH 7.48 (7.35-7.45)
--- NOTE | 2024-07-02 11:57 | CM ---
Addendum entered by LOLY Olivier 07/02/24 16:53:
At time of writing, [facility] has not reached determination regarding skilled.
I have called them at 1600, no determination reached/ still pending. Their determination will be FAXED to CM once received and may be sent over the weekend.
Weekend staff-
Please check fax machine for approval.
If approved, please notify CM.
Sehri, liaison from [facility] will need to be contacted @ [phone] regarding approval status. She will then confirm that we can arrange patient to be transported.
Pt. will be transported via BLS ambulance. I have placed medical necessity form in chart.
PLAN- Transfer to [facility] SN[facility], location: [address] [place] [address] via ambulance
RN report- [phone]
Fax- [phone]
Spouse Kayleigh has been updated and is aware of plan.
Original Note:
CM following for DC planning needs.
Pt. may be medically stable for DC today per collaboration with MD.
Plan is for SNF. PT-OT worked with patient and continues to recommend SNF.
Bed available at [facility].
I have met with patient and spouse to review this. They would be in agreement w/ [facility] but wish to speak with admissions @ [facility]. Call to [facility], they reached out to her directly. She plans to tour today.
I initiated authorization thru patient's insurance, [employer]; pending ref# [id number].
Will await determination.
--- NOTE | 2024-07-02 12:07 | CM ---
Priced Eliquis thru patient's insurance.
Estimated cost of 30 d supply of Eliquis is $47.
[2024-07-02] MEDS: MIRALAX 17 GRAMS PO (17:56)
--- NOTE | 2024-07-02 19:36 | PTCARENOTE ---
Discussed all nursing measures prior to implementation. Discussed DNR status and plan for transfer to [facility]. Encouraged questions.
[2024-07-02] MEDS: TOPROL XL PO (20:15)
[2024-07-02] MEDS: LIPITOR 40 MG PO (22:22)
[2024-07-02] MEDS: OCEAN, SALINE MIST 2 SPRAYS NASAL (22:22)
[2024-07-02] MEDS: NEURONTIN 600 MG PO (22:22)
[2024-07-03] VITALS (7 sets, daily range): BP systolic 98–117; BP diastolic 60–88; PULSE 61–74; BMI 24.2
--- NOTE | 2024-07-03 00:04 | PTCARENOTE ---
Pt rec'd at change of shift with eyes closed easily arousable. Pt's only complaint at present was post nasal drip and congestion. [facility] [employer] [employer] contacted [facility] nasal spray ordered and administered. Lungs diminished throughout. HYDE. Pt reused CPAP when
rsp therapist came around at HS. No bm thus far this shift. call erazo within reach.
[2024-07-03 05:27] LABS: Blood Urea Nitrogen 43 mg/dl (9-20); Calcium 9.8 mg/dl (8.4-10.2); Carbon Dioxide 31 mmol/L (22-30); Chloride 104 mmol/L (98-107); Estimated Creatinine Clearance 31 ml/min; Glucose 106 mg/dl (70-99); Magnesium 2.2 mg/dl (1.6-2.3); Potassium 3.8 mmol/L (3.5-5.1); Sodium 142 mmol/L (135-145); eGFR 29.91
--- NOTE | 2024-07-03 05:28 | PTCARENOTE ---
Pt reports feeling better after using [place] nasal spray, completely resolved his post nasal gtt complaint.
[2024-07-03] MEDS: MAGNESIUM OXIDE 500 MG PO (07:30)
[2024-07-03] MEDS: NEURONTIN 300 MG PO (07:31)
[2024-07-03] MEDS: PROTONIX 40 MG PO (07:31)
[2024-07-03] MEDS: PACERONE 400 MG PO (07:32)
[2024-07-03] MEDS: TYLENOL 1000 MG PO (07:32)
[2024-07-03] MEDS: VITAMIN C 500 MG PO (07:33)
[2024-07-03] MEDS: ELIQUIS 5 MG PO (07:33)
[2024-07-03] MEDS: BUMEX 2 MG PO (07:34)
[2024-07-03] MEDS: MIRALAX 17 GRAMS PO (07:35)
[2024-07-03] MEDS: VITAMIN B-6 50 MG PO (07:35)
[2024-07-03] MEDS: TOPROL XL PO (07:36)
[2024-07-03] MEDS: SPIRIVA RESPIMAT 2.5 MCG 2 PUFF INH (08:25)
[2024-07-03] MEDS: SYMBICORT 160/4.5 MCG INHALER 2 PUFF INH (08:25)
--- NOTE | 2024-07-03 10:31 | W.PN.HOSP.TC ---
Today's Communication/Plan
-
Discharge today
Assessment / Plan
Assessment / Plan
Physical Exam
General: Not in acute distress
HEENT: Normocephalic
Respiratory: Clear to Auscultation Bilaterally
Cardiac: Regular Rhythm and S1/S2
GI: Soft, Nontender and Nondistended. Positive bowel sounds.
Musculoskeletal: Other (Diffuse ecchymosis upper and lower extremity)
Neuro: Awake, Alert and Oriented
Assessment/Plan
# Hypotension
Generalized weakness
-Likely secondary to blood pressure control medication/diuretics
-Patient got fluid trial in ER, would avoid further IV fluid
-Resume Bumex given weight gain (but at reduced dose of 2 mg daily compared to 3 mg previously)
-Previously stopped Imdur due to persistent hypotension -- SBP was in the 70s and 80s while patient was lying down, on 06/30/24 morning
-Coreg switched to Metoprolol
#Chest Heaviness 07/01/24 morning
#Likely CHF, with hepatic congestion/abdominal fluid retention
-Abdomen pushing up is causing patient's shortness of breath -- bowel regimen as below, no ascites on abdominal ultrasound
-EKG showed paced rhythm
-CXR with possible pneumonia vs. atelectasis but patient has no leukocytosis, fever or any other signs/symptoms or pneumonia
-Symptoms resolved with sitting up
-Related to GERD? Component of CHF?
-No ascites on abdominal ultrasound
-Trend troponins
#Periods of Sleep Apnea
- described patient as someone with Favio Toro breathing
-Patient also has COPD
-Discussed with cardiology and wondering if patient's symptoms of chest heaviness while lying down has pulmonary component
-Requested records from patient's pulmonary office (Dr. Brandi Dave in [place] -- )
-Consult pulmonary, appreciate their evaluation and recommendations: trial CPAP here while inpatient (as tolerated), patient has previously not had sleep study done because of cost
-Will need sleep study outpatient
#Constipation
-Bowel regimen
#Delirium
-Continue to monitor
# V-fib episode resulting in shock
-This happened day before admission
-Device interrogation report in chart
- EP cardiology evaluated and patient was started on amiodarone drip; plan for Amiodarone 400 mg BID for one week (next dose to be on the evening of 07/03/24, and last dose to be on the morning of 07/04/24) and then Amiodarone 200 mg BID
- Keep potassium above 4 and magnesium above 2
# Hypokalemia
- Patient got 60 mEq of potassium in the night for potassium of 2.8. Magnesium 2.2
- recheck BMP
# RACHELE on CKD 4
- Creatinine overall improved
- likely secondary to hypotension/Bumex
- IV fluids previously given, blood pressures improved so hold further fluids
- Continue Bumex as per nephrology
# Fall with head injury
- CT head showed no acute abnormality
# Nonischemic myocardial injury secondary to hypotension
- Troponin of 0.142, continue to trend
- EKG shows wide QRS rhythm, left bundle branch block which is old
#Chronic HFrEF/ischemic cardiomyopathy with ICD
-Chest x-ray shows no acute cardiopulmonary process
-Continue Bumex as per cardiology
-Continue Coreg
-Imdur stopped due to hypotension
#Paroxysmal atrial fibrillation
-Pradaxa replaced with Eliquis since patient has CKD and is on Amiodarone
Lung Cancer (without chemo/rads) status post RUL removal
KIMMY
-Per pulmonary notes, patient was noted to be snoring, witnessed apneas, fatigue, heart failure and COPD
-Per notes, patient declined HST
-He was determined not to be a candidate for ASV or BIPAP/BUR
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
CAD - Continue isosorbide dinitrate, Aspirin and Carvedilol, and Atorvastatin 40 mg HS
COPD - Continue albuterol, budesonide, Trelegy
Hyperlipidemia - Continue statin
GERD
History of Gastric Ulcer (based on pulmonology records)
Neuropathy - Continue gabapentin
Dilated Aortic Root
DNR (patient stated, in the presence of his , on 07/02/24, that he wanted to be DNR)
DVT prophylaxis�Eliquis
On 06/30/24, I spoke with patient's inside patient's room and answered all her questions and concerns to satisfaction.
On 07/01/24, I spoke with patient's over the phone and answered all her questions and concerns to satisfaction.
On 07/02/24, I spoke with patient's over the phone and answered all her questions and concerns to satisfaction.
More than 30 minutes spent in discharge including
Final examination of the patient
Summarizing hospital stay
Instructions for continuing care to all relevant caregivers
Preparation of discharge records, prescriptions, and referral forms
Total time spent (in minutes): 38
Anticipated Discharge: Today
Subjective/Interval History
-
Date of Service: July 03, 2024
Patient was seen and examined. He denied any new chest pain, shortness of breath or any other new complaints or symptoms.
Objective Data
-
Labs:
Laboratory Results
07/03/24
04:28
Sodium 142
Potassium 3.8
Chloride 104
Carbon Dioxide 31 H
BUN 43 H
Creatinine 2.2 H
Glucose 106 H
Calcium 9.8
Vital Signs:
Vital Signs
Temp Pulse Resp BP Pulse Ox
97.8 F 60 16 98/60 94
07/03/24 07:20 07/03/24 08:29 07/03/24 08:29 07/03/24 07:36 07/03/24 07:20
I&O
0507/03/24 07/04/24
06:59 06:59 06:59
Intake Total 480 / 480 590 / 590
Output Total 950 / 950 1300 / 1300
Balance -470 / -470 -710 / -710
--- NOTE | 2024-07-03 11:17 | PTCARENOTE ---
Orthostatic VS obtained, pt cooperative, denied dizziness and lightheadedness while sitting and standing. He did say that he felt weak today. Pt weighed on standing scale. Results of orthostatic VS TT'd to Dr. Jose and Dr. Goff.
--- NOTE | 2024-07-03 12:17 | W.DCSUMMARY ---
Discharge Summary
Discharge Data
Date of Admission: 06/26/24
Date of Discharge: 07/03/24
Total time spent discharging patient (in min): 38
-
Pending Results: No
Hospital Course
79-year-old male with past medical history of chronic HFrEF/ischemic cardiomyopathy with ICD, paroxysmal atrial fibrillation on Pradaxa, bicuspid aortic valve with severe aortic stenosis and dilated ascending aorta status post bioprosthetic AVR,
aortic root replacement, CAD, CKD 4, COPD, hyperlipidemia and GERD, presented for worsening status since recent hospital admission. He had been falling multiple times and did hit his head once, he had not been sleeping well. Therapy stopped 2 days
prior to presentation, and he could not lift his legs in bed; therefore could not participate. Patient did receive a shock, the day before admission, for the first time and cardiology informed him that his heart rate was in the 180s beats per
minute, and to go to the hospital if this were to happen again. Patient's diuretic was held and he was started on intravenous fluids for hypotension from hypovolemia.
Cardiology was consulted and they noted that patient's ICD treated the VT with ATP x3 on , and then patient had VF arrest (fast VT) that required shock on 06/25/24. Patient was therefore added on Amiodarone. Patient's Hydralazine was held.
Patient had significant hypokalemia which was treated. Patient was continued on Coreg and Isordil. Given patient's severe chronic kidney disease, it was noted that patient's Pradaxa (for atrial fibrillation) was contraindicated with concomitant
Amiodarone; therefore Pradaxa was switched to Eliquis. The plan was for patient to get Amiodarone 400 mg BID for 1 week followed by Amiodarone 200 mg BID. Patient's nitrate medication was stopped due to hypotension, and patient's Coreg was also
switched to Metoprolol given the hypotension. Patient reported increased chest heaviness during his hospitalization, more likely this was related to his abdominal distention, shortness of breath with sitting and laying flat with belly pushing up.
Abdominal ultrasound showed no ascites. Patient was placed on bowel regimen. Patient's Bumex was also resumed. On the day of discharge, profiler recommended via [place] [employer] communication to change the Bumex to 2 mg daily (instead of BID) given
patient's hypotension. No Aspirin was needed (please see profiler's addendum to their progress note from 07/02/24).
Discharge Plan
-
Patient Disposition: Residential/SNF
Discharge Diagnosis/Procedures: #Hypotension
#Generalized weakness
#Chest Heaviness 07/01/24 morning
#Likely heart failure, with hepatic congestion/abdominal fluid retention
#Periods of Sleep Apnea
#Constipation
#Delirium
#V-fib episode resulting in shock
#Hypokalemia
#RACHELE on CKD 4
#Fall with head injury
#Nonischemic myocardial injury secondary to hypotension
#Chronic HFrEF/ischemic cardiomyopathy with ICD
#Paroxysmal atrial fibrillation
#Lung Cancer (without chemo/rads) status post RUL removal
#KIMMY
#Bicuspid aortic valve/severe aortic stenosis/dilated ascending aorta status post bioprosthetic AVR/aortic root replacement
#CAD - Continue isosorbide dinitrate, Aspirin and Carvedilol, and Atorvastatin 40 mg HS
#COPD - Continue albuterol, budesonide, Trelegy
#Hyperlipidemia - Continue statin
#GERD
#History of Gastric Ulcer (based on pulmonology records)
#Neuropathy - Continue gabapentin
#Dilated Aortic Root
Condition: Fair
Diet: Low Fat, Low Cholesterol, 2 Gram Sodium and Restrict fluids to 64 oz
Activity: With assistance
Driving Restrictions: No driving
Other Services: PT
Specialty Instructions: Weigh Daily- Call MD for wt gain/loss 3 lbs overnight/5 lbs in 1 week
Activity Restrictions/Additional Instructions:
Check CBC, BMP and Magnesium in 2 to 3 days, supplement potassium and magnesium to keep serum potassium>4 (but within normal range) and serum magnesium>2 (but within normal range).
Follow-up closely with pulmonary doctor Dr. Brandi Dave for sleep study -- this is very important.
Continue to monitor for constipation and treat accordingly.
Wound Care Instructions
Arm skin tears, R knee abrasion-clean with saline, Vaseline gauze, silicone border foam, change q 3 days and prn loosened dressing.
Elevate heels off bed with pillow/s.
Pressure redistributing chair cushion (i.e. Air chair cushion).
Follow up at wound care center if needed, call for an appointment.
Referrals:
[facility], nursing home facility [Other]
Torrey Snow MD [Active] - in one month (Hospital Follow-Up)
NONE,* [Family Provider] -
Additional Discharge Medication Instructions: Amiodarone is a new medication: 400 mg BID through the morning of 07/04/24, followed by Amiodarone 200 mg BID.
Bumetanide has been reduced to 2 mg PO daily.
Eliquis 5 mg BID is a new medication.
Dabigatran (Pradaxa) has been stopped.
Metoprolol Succinate 12.5 mg BID is a new medication.
Carvedilol has been stopped.
Polyethylene Glycol is a new medication.
Isosorbide Dinitrate has been stopped (due to hypotension).
Potassium chloride has been stopped.
Prescriptions:
New
bumetanide 2 mg Tablet
2 mg PO DAILY Qty: 30 2RF
Eliquis 5 mg Tablet
5 mg PO BID Qty: 60 3RF
polyethylene glycol 3350 17 gram Powder In Packet
17 g PO DAILY Qty: 30 1RF
amiodarone 200 mg Tablet
400 mg PO BID 1 Days Qty: 4 0RF
Rx Instructions:
400 mg on 07/03/24 evening, and another 400 mg on 07/04/24 morning
amiodarone 200 mg Tablet
200 mg PO BID Qty: 60 3RF
Rx Instructions:
Start on 07/04/24 evening
metoprolol succinate 25 mg Tablet Extended Release 24 Hr
12.5 mg PO BID Qty: 60 2RF
Continued
atorvastatin 40 MG tablet
40 mg PO HS
gabapentin 300 mg Capsule
600 mg PO HS
magnesium oxide 400 mg magnesium Tablet
400 mg PO Q48H
acetaminophen [Tylenol Extra Strength] 500 mg Tablet
1,000 mg PO Q6HPRN PRN (Reason: mild pain)
pyridoxine (vitamin B6) [Vitamin B-6] 50 mg Tablet
50 mg PO DAILY
albuterol sulfate 2.5 mg /3 mL (0.083 %) Solution For Nebulization
2.5 mg INHALATION R Q48H
ascorbic acid (vitamin C) [Vitamin C] 500 mg Tablet
500 mg PO DAILY
gabapentin 300 mg Capsule
300 mg PO DAILY
budesonide 0.5 mg/2 mL Suspension For Nebulization
0.5 mg INHALATION R Q48H
ipratropium bromide 0.02 % Solution
2.5 ml INHALATION R Q48H
Trelegy Ellipta 200-62.5-25 mcg Blister With Device
1 inh INHALATION R Q48H
pantoprazole 40 mg Tablet,Delayed Release (Dr/Ec)
40 mg PO BID Qty: 60 0RF
Discontinued
dabigatran etexilate [Pradaxa] 75 mg Capsule
75 mg PO BID 30 Days Qty: 30 0RF
potassium chloride 20 mEq Tablet Extended Release
20 meq PO BID 30 Days Qty: 60 0RF
carvedilol 3.125 mg Tablet
3.125 mg PO BID
isosorbide dinitrate 10 mg Tablet
10 mg PO TID Qty: 90 0RF
bumetanide 1 mg tablet
3 mg PO DAILY
Discharge Orders:
Discharge Patient (As Directed); Ordered 07/03/24
Ordered By: [place] Jose
Care Plan Goals
Care Plan Goals:
Problem: Readiness for enhanced knowledge related to diagnosis and treatment plan
Goal: Understand your diagnosis and treatment plan needs, including medications if applicable.
Instructions: Know your diagnosis, underlying causes and treatment plan options, including medications if applicable. Consult with your health care team to learn about your diagnosis and treatment plan, including medications if applicable.
Discharge Date and Time
Discharge Date/Time: 07/03/24 12:45
Print Language: [email or web address]
== END 2024-07-03 12:45 | DRG 682 ==
LOC: IVU 16:36
PROVIDERS: Hospitalist; Nurse Practitioner Family; ADMITTING PHYSICIAN Hospitalist; ATTENDING PHYSICIAN Hospitalist; CONSULT PHYSICIAN Internal Medicine; CONSULT PHYSICIAN Internal Medicine Cardiovascular Disease; EMERGENCY PHYSICIAN Emergency Medicine
DX: N17.9 Acute kidney failure, unspecified (principal); I49.01 Ventricular fibrillation; I13.0 Hypertensive heart and chronic kidney disease with heart failure and stage 1 through stage 4 chronic kidney disease, or unspecified chronic kidney disease; I50.22 Chronic systolic (congestive) heart failure; I5A Non-ischemic myocardial injury (non-traumatic); I47.20 Ventricular tachycardia, unspecified; N18.4 Chronic kidney disease, stage 4 (severe); I95.9 Hypotension, unspecified; K21.9 Gastro-esophageal reflux disease without esophagitis; G47.30 Sleep apnea, unspecified; J43.9 Emphysema, unspecified; E87.6 Hypokalemia; I48.0 Paroxysmal atrial fibrillation; Z85.118 Personal history of other malignant neoplasm of bronchus and lung; Z90.2 Acquired absence of lung [part of]; Q23.81 Bicuspid aortic valve; I35.0 Nonrheumatic aortic (valve) stenosis; Z95.3 Presence of xenogenic heart valve; E78.00 Pure hypercholesterolemia, unspecified; I25.10 Atherosclerotic heart disease of native coronary artery without angina pectoris; G62.9 Polyneuropathy, unspecified; Z66 Do not resuscitate; K59.00 Constipation, unspecified; R41.0 Disorientation, unspecified; E89.0 Postprocedural hypothyroidism; Z95.1 Presence of aortocoronary bypass graft; Z87.891 Personal history of nicotine dependence; Z88.0 Allergy status to penicillin; Z88.5 Allergy status to narcotic agent; I44.7 Left bundle-branch block, unspecified; Z79.02 Long term (current) use of antithrombotics/antiplatelets; I27.29 Other secondary pulmonary hypertension; I25.5 Ischemic cardiomyopathy; Z95.810 Presence of automatic (implantable) cardiac defibrillator; Z85.850 Personal history of malignant neoplasm of thyroid; E86.1 Hypovolemia; K76.1 Chronic passive congestion of liver; R29.6 Repeated falls; Z79.899 Other long term (current) drug therapy; Z98.61 Coronary angioplasty status
CPT/HCPCS: 36600; 70450; 71045; 74018; 76705; 80048; 80053; 82805; 83735; 83880; 84484; 85025; 93005; 94640; 96360; 97110; 97163; 97167; 97530; 97535; 99285

== ENCOUNTER 2024-07-16 03:55 | Inpatient (IN) | payer OTHER, SELFPAY ==
[2024-07-15 22:25] VITALS: BP 106/52
[2024-07-15 22:27] VITALS: BP 106/52
[2024-07-15 22:39] VITALS: BMI 25.6
[2024-07-15 22:51] LABS: % Basophils 0.7 % (0-2); % Eosinophils 1.1 % (0-6); % Immature Granulocytes 0.4 % (0-0.5); % Lymphocytes 7.8 % (20.5-51.1); % Monocytes 13.5 % (1.7-9.3); % Neutrophils 76.5 % (42.2-75.2); Absolute Basophils 0.1 10^3/uL (0-0.2); Absolute Eosinophils 0.1 10^3/uL (0-0.7); Absolute Lymphocytes 0.6 10^3/uL (1.2-3.4); Absolute Monocytes 1.1 10^3/uL (0.1-0.6); Absolute Neutrophils 6.2 10^3/uL (1.4-6.5); Hematocrit 31.8 % (39.0-52.0); Hemoglobin 10.8 g/dL (13.0-18.0); Mean Corpuscular Volume 85.5 fL (80.0-94.0); Mean Platelet Volume 10.1 fL (7.4-10.4); Nucleated Red Blood Cells % 0 % (-); Platelet Count 217 10^3/uL (130-400); Red Blood Cell Count 3.72 10^6/uL (4.70-6.10); Red Cell Dist. Width 16.4 % (11.5-14.5); White Blood Cell Count 8.1 10^3/uL (4.8-10.8)
[2024-07-15 23:00] VITALS: BP 105/56
[2024-07-15 23:05] LABS: ALT (SGPT) 14 U/L (0-50); AST (SGOT) 21 U/L (17-59); Albumin 3.6 g/dl (3.5-5.0); Alkaline Phosphatase 138 U/L (38-126); Blood Urea Nitrogen 32 mg/dl (9-20); Calcium 9.5 mg/dl (8.4-10.2); Carbon Dioxide 23 mmol/L (22-30); Chloride 105 mmol/L (98-107); Estimated Creatinine Clearance 28 ml/min; Glucose 120 mg/dl (70-99); Potassium 3.6 mmol/L (3.5-5.1); Sodium 136 mmol/L (135-145); Total Bilirubin 1.4 mg/dl (0.2-1.3); Total Protein 6.3 g/dl (6.3-8.2); eGFR 26.94
[2024-07-15 23:13] LABS: NT-proBNP 8640 pg/ml
[2024-07-16] VITALS (16 sets, daily range): BP systolic 94–130; BP diastolic 49–101; BMI 25.7
[2024-07-16 01:00] LABS: Venous Blood Gas HCO3 26.5 mmol/L (22-27); Venous Blood Gas O2 Sat % 99.6 %; Venous Blood Gas pCO2 40 mmHg (35-48); Venous Blood Gas pH 7.43 (7.32-7.43); Venous Blood Gas pO2 202 mmHg (30-50)
[2024-07-16 01:01] LABS: Venous Blood Gas O2 Therapy ROOM AIR
--- NOTE | 2024-07-16 01:26 | ED.GENMED ---
History of Present Illness
General
Chief Complaint: Breathing Problem
Source: records
Exam Limitations: clinical condition
Time Seen by Provider: 07/16/24 00:08
History of Present Illness
History of Present Illness:
71-year-old male sent for increasing hypoxia. Apparently more lethargic recently. Patient without other complaints.
Past History
Past History
ED Past Medical History: Arrthythmia (Atrial fib), CAD, Cancer (lung/Thyroid), CHF, COPD, CVA, HTN, Hypercholesterolemia, GA, Valvular disease and Other (sepsis, Headache over the left eye continually, Renal issues, Blind left eye, Ulcers)
ED Past Surgical History: Appendectomy, Cardiac (CABG, stents), Tonsilectomy, Urological (Bladder repair, ) and Other (Laparoscopic left inguinal hernia repair November 19, 2021, Left upper lobectomy, thyroidectomy)
Social History
Tobacco: Former smoker (Sneaking a few cigarettes according to .)
Alcohol: Daily (Wine 1)
Drug: None
Personal:
Living: with family
Employment: Retired
Family History
Family History: Other (Noncontributory)
Review of Systems
Review of Systems
Unable to obtain full review of systems at this time due to: due to acuity
All Other Systems: Not applicable
Phy Exam
Physical Exam
Physical Exam:
GENERAL: Sleeping. Lethargic but arousable
EYE: Orbits normal.
NECK: Supple, no significant adenopathy.
ENT: Pharynx without erythema
CARDIAC: Regular rate and rhythm without any obvious murmurs. Pacer upper chest wall
LUNGS: Slightly poor effort. Mild crackles in the bases
ABDOMEN: Soft, without focal tenderness or distention
NEUROLOGICAL: Alert and oriented , grossly non-focal
SKIN: Warm and dry, no rash or lesion, no discoloration, skin intact.
MUSCULOSKELETAL: No edema,no deformity.Good color
PSYCH: Normal and appropriate interaction.
Scores
Heart Failure Risk
Heart Failure Risk Score: Yes
History of Stroke or TIA: No
History of intubation for respiratory distress: No
Heart rate on ED arrival >/= 110: No
SaO2 <90% on arrival on room air: Yes
HR >/=110 during 3min walk test (or too ill to perform test): Yes
ECG has acute ischemic changes: No
Urea >/=12mmol/L (BUN 33.6mg/dL): No
Serum CO2>/=35mmol/L: No
Troponin I or T elevated to GA Level (0.4mg/dL): No
NT-proBNP >/=5,000ng/L (5,000pg/ml): Yes
HF Risk Score: 4
Admission Status: HIGH RISK 26.1% Consider SNF treatment or admission to hospital
Course
Orders/Labs/Results
Orders:
Orders
07/15/24 22:41
Electrocardiogram (*1) Urgent
Reason for Study: Shortness of Breath
EKG- Treatment ONCE
07/15/24 22:42
Complete Blood Count/With Diff Urgent
Comprehensive Metabolic Panel Urgent
NT-proBNP Urgent
07/16/24 00:33
CXR Port [CR Chest Portable - 1 View] Urgent
Comment:
Reason For Exam: hypoxia
Reason Study Needs to be Portable: Patient Unstable
07/16/24 00:56
Venous Blood Gas Urgent
%Oxygen/Room Air: ra
07/16/24 01:47
COVID-19 Antigen Urgent
Source: Nasal Swab
Influenza A+B Rapid Molecular Urgent
ALYSE Source: Nasal Swab
Specimen Description:
07/16/24 01:48
Bumetanide [Bumex] 1 mg IV NOW STA
07/16/24 02:52
Admit/Transfer Patient As Directed
Co-Sign Provider:
Level of Care: Inpatient admission
Assign to:: Telemetry
Physician / Group: Wu
Diagnosis: CHF exacerbation
Reason for Telemetry: Subacute Heart Failure
Date to Stop Telemetry: 07/18/24
Time to Stop Telemetry: 11:00
Reason for Hospitalization: CHF exacerbation
Expected length of stay greater than two midnights?: Yes
ELOS- Estimated Length of Stay in days: 2
I certify the patient meets the requirements for IP care: Yes
PRN Pain Medication Management As Directed
May give lesser potent ordered pain med per pt: Yes
preference::
Protocol:: Medication orders for pain may be administered in a
manner that supports deferring to patient preference
when the pt is:
- Requesting an ordered lesser potent pain medication.
Least to most potent pain medications are defined
as: acetaminophen < NSAID < tramadol < opioids
(morphine, oxycodone, hydromorphone).
- Requesting a lesser dose of the same medication IF
ORDERED.
- Requesting a less intrusive route of administration
if both routes are prescribed by the provider (PO <
IV).
07/16/24 02:56
Code Status As Directed
Resuscitation Status: Full Code
07/16/24 03:42
Guaifenesin/Dextromethorphan [Robitussin Dm] 5 ml PO Q6HPRN PRN
07/16/24 05:53
Acetaminophen [Tylenol] 650 mg PO Q6HPRN PRN
Ipratropium/Albuterol Sulfate [Duoneb] 3 ml INH R Q4HPRN PRN
07/16/24 05:53
Echo 2D MMode Color/Doppler Routine
Reason for Study: heart failure
CARDIOLOGY CONSULT Routine
Consulting Provider: Keron Goff
Was physician already notified: No
Reason for consult: CHF exacerbation
Consult Notification Routine
Specialty to Notify: Cardiology
HF DIETARY CONSULT Routine
HF EDUCATOR CONSULT Routine
Comment:
VTE Contraindication Routine
VTE Mechanical Device Contraindication: Medical Contraindication
Pharmocologic Contraindication: Medical Contraindication
Activity As Directed
Activity Level: With Assistance
Intake/ Output As Directed
Frequency: Per unit guidelines
Patient Education As Directed
Type: CHF folder
Comment: give on admission. Document in Interdisciplinary Education record
Sleep Apnea Assessment by RN As Directed
Comment:
Physician Instructions:
Vital Signs As Directed
Frequency: Other
Additional Instructions:: Q12 or per unit guidelines if more frequent.
Weight As Directed
Frequency: Daily
Type of Scale: Standing Scale
Comment: Daily morning weight. If unable to stand, use balanced bed scale.
Weight As Directed
Frequency: Once
Type of Scale: Standing Scale
Comment: Upon Admission. If unable to stand, use balanced bed scale.
O2 Therapy [RESP] Routine
Nasal Cannula Liter Flow: 2 LPM
Titrate/Wean O2 to maintain O2 sat greater than (%): 93
Pulse Ox/cont/shift [RESP] Routine
Quantity: 1
Special Instructions: Daily pulse oximetry at rest. If greater than 92% at rest also obtain pulse oximetry
while ambulating as tolerated.
07/16/24 05:58
MRSA Screen Routine
ALYSE Source: Nose
Specimen Description:
07/16/24 Breakfast
Cholesterol Lowering
At Your Request: Full Participation
Fluid Restriction: 1800 mL/day (60 oz)
Cholesterol Lowering: Sodium, 2 Gram
07/16/24 06:06
Basic Metabolic Panel IN AM
Complete Blood Count/No Diff IN AM
Magnesium IN AM
Troponin I IN AM
Comment: at admission & every 6 hours x 2 (3 total), ECG to be done with each level
07/16/24 08:00
Amiodarone [Pacerone] 200 mg PO BID
Apixaban [Eliquis] 5 mg PO BID
Budesonide [Pulmicort] 0.5 mg INH R Q48H
Bumetanide [Bumex] 2 mg IV BID@0800,1600
Doxycycline [Vibramycin] 100 mg PO Q12
Magnesium Oxide 500 mg PO Q48H
Metoprolol Xl [Toprol Xl] 12.5 mg PO BID
Pantoprazole [Protonix] 40 mg PO BID
Polyethylene Glycol Powder [Miralax] 17 grams PO DAILY
07/16/24 22:00
Atorvastatin [Lipitor] 40 mg PO HS
Gabapentin [Neurontin] 600 mg PO HS
07/17/24 06:00
Basic Metabolic Panel IN AM
07/17/24 08:00
Budesonide/Formoterol 160/4.5 [Symbicort 160/4.5 Mcg Inhaler] 2 puff INH R Q48H
07/18/24 06:00
Basic Metabolic Panel IN AM
07/18/24 11:00
DC Protocol for Telemetry ONCE
Abnormal Lab Results
07/15/24 07/16/24
22:42 00:56
RBC 3.72 L 10^6/uL
(4.70-6.10)
Hgb 10.8 L g/dL
(13.0-18.0)
Hct 31.8 L %
(39.0-52.0)
RDW 16.4 H %
(11.5-14.5)
Absolute Lymphs (auto) 0.6 L 10^3/uL
(1.2-3.4)
Absolute Monos (auto) 1.1 H 10^3/uL
(0.1-0.6)
Neutrophils % 76.5 H %
(42.2-75.2)
Lymphocytes % 7.8 L %
(20.5-51.1)
Monocytes % 13.5 H %
(1.7-9.3)
VBG pO2 202 H mmHg
(30-50)
BUN 32 H mg/dl
(9-20)
Creatinine 2.4 H mg/dL
(0.7-1.3)
Glucose 120 H mg/dl
(70-99)
Total Bilirubin 1.4 H mg/dl
(0.2-1.3)
Alkaline Phosphatase 138 H U/L
(38-126)
07/15/24 22:42
07/15/24 22:42
Vital Signs
Initial and Last Documented VS:
Initial Vital Signs
Pulse Resp
64 19
07/15/24 22:22 07/15/24 22:22
Last Documented Vital Signs
Temp Pulse Resp BP Pulse Ox
98.3 F 66 30 124/59 92
07/16/24 08:00 07/16/24 11:45 07/16/24 11:45 07/16/24 11:00 07/16/24 11:45
*Radiology
Radiology exam reviewed: preliminary read by ED provider (Mild cephalization)
*Pulse Oximetry
Patient hypoxic: yes (84% when sleeping. 90 to 93% on room air when awake)
*EKG
Interpretation: abnormal
Comparison EKG: changes noted
Heart Rate: 62
Rate: normal
Rhythm: ventricular paced
*Boarding Machine Operator Interpretation
Rate: normal
Interpretation: abnormal
Heart Rate: 66
Rhythm: ventricular paced
*Critical Care Note
Total Time (30-74mins, 75-104mins- exclusive of procedures): Not Applicable
Data Reviewed
Review of Other/Old Records Reveals: Labs, Records, Radiology Studies and Discharge Summary
Update Note
Update Note:
Pacemaker interrogation okay. Patient in no distress. Mildly sleepy but will awaken fully answer questions and is in no distress. Pulse ox does drop into the mid 80s.
ED Attending Note
-
Portions of this chart may have been created with voice recognition software.� Occasional wrong word or��sound alike� substitutions may have occurred due to the inherent limitations of voice recognition software.
Discharge Plan
Departure
Patient Disposition: Admit
Date of Disposition: 07/16/24
Time of Disposition: 01:51
Presentation/result/management discussed w/ accepting MD/DO: Hospitalist
Discharge Problem:
Hypoxia/CHF, Lethargy, Renal insufficiency
Interventions
Interventions:
*Risk Screen - Suicide Last Done: 07/15/24 22:25
*General Assessment Last Done: 07/15/24 22:25
*Neglect/Abuse Screening Last Done: 07/15/24 22:25
*ED- Fall Risk Assessment Last Done: 07/15/24 22:35
*ED COVID-19 Vaccine History Last Done: 07/15/24 22:35
ED- Cardiac Assessment Last Done: 07/15/24 22:35
ED- Pulmonary Assessment Last Done: 07/15/24 22:35
[2024-07-16] MEDS: BUMEX 1 MG IV (02:09)
[2024-07-16 02:11] LABS: COVID-19 Antigen Negative (Negative)
--- NOTE | 2024-07-16 02:39 | HPS.HSE ---
Family Physician
-
Family Physician: Varghese Vinson
Chief Complaint
-
Shortness of breath
History of Present Illness
This is a 79-year-old who has a past medical history of CAD with ischemic cardiomyopathy status post AICD and pacemaker placement, atrial fibrillation now on anticoagulation, bicuspid aortic valve with severe aortic stenosis, status post
bioprosthetic AVR and aortic root replacement, CKD stage IV, COPD not on home O2, hypertension and hyperlipidemia who presents to the emergency department from rehab facility for shortness of breath and cough
Patient was recently admitted to the hospital for weakness and falling and found to have sustained episodes of V. tach and V-fib arrest that was treated by the AICD. During that admission patient was started on amiodarone. Antihypertensives were
titrated down to allow blood pressure normalization and he was ultimately discharged on Bumex 2 mg p.o. daily.
Patient reports that he has been having continuous coughing for the last 2 days. He coughs throughout the day and is occasionally productive of some sputum but mostly feels congested and unable to expectorate much out. He reports that the cough
associated with shortness of breath. He denies feeling wheezy. Denies any fevers or chills. He has no known sick contacts.
Patient denies any recent smoking.
When he was discharged his weight was 83.1 kg (182.2 pounds), reported weight at the alf over the last few days with 184 to 185 pounds. No changes in medications. Patient reports that when he is sitting more upright he feels chest
congestion that he thinks is due to abdominal bloating and distention. He complains of increased abdominal girth over the last few months. He has similar complaints prior to leaving the hospital and he had an ultrasound which was negative for any
ascites. Patient was kept on 2 mg of bumetanide once a day at the time of discharge. He was placed on a bowel regimen. He denies any new swelling in his legs but states that he never gets swelling with his CHF.
Today EMS was called as patient was found to be hypoxic to 84% on room air
Currently in the emergency department she has a Tmax of 99.4, blood pressure of 110/70 with a pulse rate of 66 paced. Yesterday 96% on 2 L.
ECG showed a paced rhythm at a rate of [address] or T wave changes. His BNP is elevated to 8600.
CBC is unchanged from prior we will white count of 8.1 hemoglobin of 10.8 and platelet of 217. His electrolytes are stable with a potassium of 3.6 and a creatinine BUN of 32 creatinine of 2.4.
Chest x-ray to ar shows a slight increase in vascular congestion and trace bilateral pleural effusion. No acute consolidation notable.
Blood gas shows a pH of 7.4 / 6.5..
Medical History
Past Medical History
Past Medical History: Reports Other (chronic HFrEF/ischemic cardiomyopathy with ICD, paroxysmal atrial fibrillation on Pradaxa, bicuspid aortic valve with severe aortic stenosis and dilated ascending aorta status post bioprosthetic AVR, aortic root
replacement, CAD, CKD 4, COPD, hyperlipidemia, GERD)
Past Surgical History: Reports Other (Appendectomy, Cardiac (CABG, stents), Tonsilectomy, Urological (Bladder repair, ) and Other (Laparoscopic left inguinal hernia repair November 19, 2021, Left upper lobectomy, thyroidectomy))
Social History
Tobacco: Non-smoker
Alcohol: None
Drug: None
Family History
Family History: Not pertinent
Allergies / Home Medications
Allergies reflects when Allergies were last updated in [facility].
Home Medications with original date entered in [facility]
Allergy/Medication List:
Allergies
Allergy/AdvReac Type Severity Reaction Status Date / Time
codeine [Codeine] Allergy nausea Verified 06/26/24 12:57
vomiting
Penicillins Allergy Hives, Verified 06/26/24 12:57
swelling,
tolerated
ceftriaxone
Feb 2020
Home Medications
atorvastatin 40 mg tablet 40 mg PO HS High cholesterol 04/25/22
gabapentin 300 mg capsule 600 mg PO HS neuropatic pain 03/14/23
magnesium oxide 400 mg PO Q48H Electrolyte Repletion 03/14/23
acetaminophen 500 mg tablet (Tylenol Extra Strength) 1,000 mg PO Q6HPRN PRN mild pain 04/01/23
pyridoxine (vitamin B6) 50 mg tablet (Vitamin B-6) 50 mg PO DAILY Supplement 04/01/23
albuterol sulfate 2.5 mg/3 mL (0.083 %) solution for nebulization 2.5 mg inhalation R Q48H Lung/Breathing Issues 12/08/23
ascorbic acid (vitamin C) 500 mg tablet (Vitamin C) 500 mg PO DAILY Supplement 12/08/23
budesonide 0.5 mg/2 mL suspension for nebulization 0.5 mg inhalation R Q48H Lung/Breathing Issues 12/08/23
fluticasone fur. 200 mcg-umeclid 62.5 mcg-vilant 25 mcg inhalat.powder (Trelegy Ellipta) 1 inh inhalation R Q48H Lung/Breathing Issues 12/08/23
gabapentin 300 mg capsule 300 mg PO DAILY neuropathic pain 12/08/23
ipratropium bromide 0.02 % solution for inhalation 2.5 ml inhalation R Q48H Allergies 12/08/23
dabigatran etexilate 75 mg capsule (Pradaxa) 75 mg PO BID Blood clot prevention/tx 30 days #30 caps 12/16/23
pantoprazole 40 mg tablet,delayed release 40 mg PO BID Gastrointestinal issue #60 tabs 12/16/23
potassium chloride 20 mEq tablet,extended release 20 meq PO BID Electrolyte Repletion 30 days #60 tabs 12/16/23
carvedilol 3.125 mg tablet 3.125 mg PO BID Blood Pressure 06/18/24
bumetanide 1 mg tablet 3 mg (3 x 1 mg) PO DAILY #30 tabs 06/22/24
isosorbide dinitrate 10 mg tablet 10 mg PO TID #90 tabs 06/22/24
Review of Systems
-
History Source: Patient
A 12 point ROS was completed and negative except as noted: Yes
Constitutional: Reports No Symptoms
EENT: Reports No Symptoms
Respiratory: Reports Cough and Trouble Breathing
Cardiac: Reports No Symptoms
Abdomen/GI: Reports No Symptoms
: Reports No Symptoms
Musculoskeletal: Reports No Symptoms
Skin: Reports No Symptoms
Neurological: Reports No Symptoms
Endocrine: Reports No Symptoms
Hematologic/Lymphatic: Reports No Symptoms
Psych: Reports No Symptoms
Physical Exam
Vital Signs
Vital Signs
Temp Pulse Resp BP Pulse Ox
99.5 F 61 9 111/69 95
07/16/24 02:19 07/16/24 02:15 07/16/24 02:15 07/16/24 02:09 07/16/24 02:15
Physical Exam
General: Well Developed, Well Nourished and No Apparent Distress
HEENT: NormoCephalic, Moist mucous membranes and Atraumatic
Respiratory: Clear and Other (no wheezes, faint crackles at the very bases bilaterally)
Cardiac: S1/S2 and Regular Rhythm; No Murmur or Rub
GI: Soft, Non Tender, Non Distended and Normal Bowel Sounds; No Organomegaly
Rectal: Deferred by Provider
Genito-urinary: Deferred by me
Musculoskeletal: No Clubbing, No Cyanosis and No Edema
Skin: No Rash
Neuro: Nonfocal/grossly intact
Laboratory Results
-
07/15/24 22:42
07/15/24 22:42
Laboratory Results
Total Bilirubin 1.4 mg/dl (0.2-1.3) H 07/15/24 22:42
AST 21 U/L (17-59) 07/15/24 22:42
ALT 14 U/L (0-50) 07/15/24 22:42
Alkaline Phosphatase 138 U/L (38-126) H 07/15/24 22:42
Data Reviewed
-
Diagnostic Radiology: Image Personally Visualized and interpreted
Medical Tests (Nuc Med, Echo, EKG etc): Image Personally Visualized and interpreted
Lab Data: Labs Reviewed by me
Old Records: Reviewed
Impression/Plan
-
IMPRESSION:
79-year-old with extensive cardiac history including ischemic cardiomyopathy with depressed EF status post AICD pacemaker placement, aortic stenosis status post bioprosthetic aortic valve, atrial fibrillation on anticoagulation, recent defibrillator
treated V. tach and V-fib presenting to the emergency department with cough x 2 days shortness of breath and hypoxia to 84% on room air at the alf. Patient's chest x-ray shows trace bilateral pleural effusion but no significant other
findings. BNP is now elevated to 8600 compared to around 4000 previously. ECG showed a paced rhythm. His electrolytes are stable except for a potassium that is slightly low at 3.6 for him. He is afebrile without leukocytosis and shows no signs
of infection. He has some mild cough in the emergency department that sounds wet but not productive. Cannot rule out COPD exacerbation but he is not wheezing. It does not show any significant CO2 retention. His weight is slightly increased by
about 3 pounds compared to his discharge weight. Negative flu and COVID
PLAN:
Shortness of breath/CHF -CHF with mild COPD exacerbation
-Admit to telemetry
-Will continue with Bumex 2 mg p.o. in the morning, 2 mg in the evening
-Continue fluid restriction
-Daily weights and ins and outs
-Device interrogated, no acute events
-echo, cycle enzymes
-Cardiology consultation
AFIB -paced rhythm at 60
-Continue Amio 200 daily
-Continue his Coreg
-Apixaban
COPD - currently on 2 L, coughing but no wheezing or increased wob. No acute consolidation
- doxycycline
- nebs as above
- keep sat > 93
- incentive spirometry
- -cough suppression
- hold steroids for now
DVT PPX - on apixaban
Code status - DNR
[2024-07-16] MEDS: ROBITUSSIN DM 5 ML PO ×3 (03:44→19:49)
[2024-07-16 06:24] LABS: Hematocrit 32.4 % (39.0-52.0); Hemoglobin 10.7 g/dL (13.0-18.0); Mean Corpuscular Hgb 28.5 pg (27.0-31.0); Mean Corpuscular Volume 86.2 fL (80.0-94.0); Platelet Count 211 10^3/uL (130-400); Red Blood Cell Count 3.76 10^6/uL (4.70-6.10); Red Cell Dist. Width 16.6 % (11.5-14.5); White Blood Cell Count 7.7 10^3/uL (4.8-10.8)
[2024-07-16 06:53] LABS: Blood Urea Nitrogen 32 mg/dl (9-20); Calcium 9.4 mg/dl (8.4-10.2); Carbon Dioxide 26 mmol/L (22-30); Chloride 105 mmol/L (98-107); Estimated Creatinine Clearance 28 ml/min; Glucose 109 mg/dl (70-99); Magnesium 2.5 mg/dl (1.6-2.3); Potassium 3.4 mmol/L (3.5-5.1); Sodium 139 mmol/L (135-145); eGFR 26.94
[2024-07-16] MEDS: PULMICORT 0.5 MG INH (07:04)
[2024-07-16 07:05] LABS: Troponin I 0.094 ng/ml
--- NOTE | 2024-07-16 08:31 | VNURNOTE ---
Chart reviewed. Patient is current with [facility] nursing, PT. Will continue to follow hospital course and DC plans.
--- NOTE | 2024-07-16 08:37 | PHANOTE ---
MED REC NOTE- FOLLOWING UP ON MISSING PAPER FOR PATIENT, CALLED PATIENT HALF-WAY. SPOKE TO A MAN WHO GAVE ME HARD TIME, GAVE HIM THE FAX NUMBER HOPEFUL HE SENDS IT
[2024-07-16] MEDS: MAGNESIUM OXIDE 500 MG PO (09:17)
[2024-07-16] MEDS: TOPROL XL 12.5 MG PO ×2 (09:18→20:50)
[2024-07-16] MEDS: ELIQUIS 5 MG PO ×2 (09:18→20:50)
[2024-07-16] MEDS: PACERONE 200 MG PO ×2 (09:18→20:50)
[2024-07-16] MEDS: VIBRAMYCIN 100 MG PO ×2 (09:18→20:50)
[2024-07-16] MEDS: PROTONIX 40 MG PO ×2 (09:18→20:50)
[2024-07-16] MEDS: MIRALAX 17 GRAMS PO (09:19)
[2024-07-16] MEDS: BUMEX 2 MG IV ×2 (09:19→17:09)
--- NOTE | 2024-07-16 09:53 | CON.CAR ---
Addendum entered and electronically signed by Yoan Huffman MD 07/16/24 11:43:
Patient seen and examined in collaboration with PRESSURISED CONTAINER FILLER; agree with below.
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
- This is the patient's fifth hospital admission over the past 8 months, and the third hospital admission over the past month; extremely poor prognosis.
- Palliative care/hospice was discussed with the patient today and he is he has end-stage cardiomyopathy in addition to his other comorbidities; he now appears to be agreeable at this time (this was apparently brought up with him during a previous
hospitalization).
- Continue Bumex 2 mg IV BID for now.
- Primary Hospitalist notified of recommendations in terms of palliative care/hospice who will be consulted to help assist with the patient and his end-of-life goals/care.
Original Note:
Consultation
Consultation Request
Date/Time Consultation Requested: 07/16/24 5:50a
Date/Time Consultation Performed: 07/16/24 8:30a
Requesting Provider: Dr. Washburn
Performing Provider: KATHI Orlando for Dr. Huffman
Reason for Consultation: acute HFrEF
Medical History
-
Chief Complaint: SOB
History of Present Illness:
Mr. Davison is a 79 yo male (patient of Dr. Snow) with HFrEF (30%), bicuspid aortic valve with severe aortic stenosis and dilated aortic root, CAD (CABG, biological AVR and ascending aortic tube graft replacement 2017), CAD (inferior DC/PCI
2004), tobacco use (right upper lobectomy for lung cancer 2010), CKD4, severe COPD, GERD, paroxysmal atrial fibrillation on Eliquis, and VT with MDT ICD, who presents to the ER with SOB. His pulse ox was 88% on room air on arrival. He c/o coughing
with some sputum production. He is admitted to the hospitalist service and we are consulted for acute HFrEF. He states his weight has been 184 lbs at rehab. Weight on admission here 188 lbs. RHC 06/21/24 euvolemic at 179 lbs. CXR with HF.
Past Medical History
Past Medical History: Other (as above)
Past Surgical History: Other (as above)
Social History
Tobacco: Former Smoker
Personal:
Living: Group Home (rehab)
Employment: Retired
Family History
Family History: Reviewed & Not Pertinent
Allergies / Home Medications
Allergy/AdvReac Type Severity Reaction Status Date / Time
codeine (Codeine) Allergy nausea Verified 07/15/24 22:24
vomiting
Penicillins Allergy Hives, Verified 07/15/24 22:24
swelling,
tolerated
ceftriaxone
Feb 2020
�Medication �Instructions �Recorded �Confirmed �Type
atorvastatin 40 mg tablet 40 mg PO HS High cholesterol 04/25/22 07/16/24 History
gabapentin 300 mg capsule 600 mg PO HS neuropatic pain 03/14/23 07/16/24 History
magnesium oxide 400 mg PO Q48H Electrolyte 03/14/23 07/16/24 History
Repletion
acetaminophen 500 mg tablet 1,000 mg PO Q4HPRN PRN mild pain 04/01/23 07/16/24 History
(Tylenol Extra Strength)
pyridoxine (vitamin B6) 50 mg 50 mg PO DAILY Supplement 04/01/23 07/16/24 History
tablet (Vitamin B-6)
albuterol sulfate 2.5 mg/3 mL 2.5 mg inhalation R Q48H 12/08/23 07/16/24 History
(0.083 %) solution for nebulization Lung/Breathing Issues
ascorbic acid (vitamin C) 500 mg 500 mg PO DAILY Supplement 12/08/23 07/16/24 History
tablet (Vitamin C)
budesonide 0.5 mg/2 mL suspension 0.5 mg inhalation R Q48H 12/08/23 07/16/24 History
for nebulization Lung/Breathing Issues
gabapentin 300 mg capsule 300 mg PO DAILY neuropathic pain 12/08/23 07/16/24 History
ipratropium bromide 0.02 % 2.5 ml inhalation R Q48H Allergies 12/08/23 07/16/24 History
solution for inhalation
pantoprazole 40 mg tablet,delayed 40 mg PO BID Gastrointestinal 12/16/23 07/16/24 Rx
release issue #60 tabs
apixaban 5 mg tablet (Eliquis) 5 mg PO BID #60 tabs 07/03/24 07/16/24 Rx
bumetanide 2 mg tablet 2 mg PO DAILY #30 tabs 07/03/24 07/16/24 Rx
polyethylene glycol 3350 17 gram 17 g PO DAILY #30 ea 07/03/24 07/16/24 Rx
oral powder packet
amiodarone 200 mg tablet 200 mg PO BID 07/16/24 07/16/24 History
bisacodyl 10 mg rectal suppository 10 mg NE DAILYPRN PRN if no bm 07/16/24 07/16/24 History
(Dulcolax (bisacodyl)) aftr mom
fluticasone 100 mcg-salmeterol 50 1 inh inhalation R DAILY 07/16/24 07/16/24 History
mcg/dose blistr powdr for
inhalation (Advair Diskus)
guaifenesin 600 mg tablet, 600 mg PO HS 07/16/24 07/16/24 History
extended release 12 hr (Mucinex)
metoprolol tartrate 25 mg tablet 25 mg PO BID 07/16/24 07/16/24 History
sodium phosphates 19 gram-7 118 ml NE [id number] PRN if no bm 07/16/24 07/16/24 History
gram/118 mL enema (Fleet Enema) aftr dulolcax
umeclidinium 62.5 mcg/actuation 1 inh inhalation R DAILY 07/16/24 07/16/24 History
blister powder for inhalation
(Incruse Ellipta)
Review of Systems
-
History Source: Patient
All other systems: Negative unless noted
Physical Exam
Vital Signs
Temp Pulse Resp BP Pulse Ox
99.5 F 61 25 115/101 94
07/16/24 02:19 07/16/24 07:07 07/16/24 07:07 07/16/24 09:18 07/16/24 07:07
Lab Results
07/16/24 06:06
07/16/24 06:06
Troponin I 0.094 ng/ml H* 07/16/24 06:06
Hqw-M-Ljjsviurpfm Pept 8640 pg/ml 07/15/24 22:42
Physical Exam
General: Other (appears chronically ill)
HEENT: Normocephalic, Anicteric and Moist Mucous Membranes
Respiratory: Wheezes (diffuse b/l ), Rhonchi (diffuse b/l) and Non Labored Respirations
Cardiac: S1/S2 and Regular Rhythm
Breast: Deferred by me
GI: Soft, Non Tender, Non Distended and Normal Bowel Sounds
Rectal: Deferred by Provider
Genito-urinary: No Costovertebral Tender
Musculoskeletal: No Clubbing, No Cyanosis and No Edema
Skin: Warm and Dry
Neuro: AO x 3
Hematologic/Lymphatic: No Lymphadenopathy
Psych: Calm
Impression / Plan
-
HFrEF - acute on chronic.
- 5 admissions for HFrEF in the last 7 months!
- EF 30-35% on echo 07/16/24.
- agree with IV duiresis as hemodynamics allow.
- last admission his outpatient Bumex was reduced to 2mg daily due to hypotension (typically on Bumex 3mg BID).
- continue daily weights, I&Os, fluid/sodium restrictions.
- RHC 06/21/24 as below; he did not tolerating Imdur due to hypotension.
Ischemic cardiomyopathy - EF 30-35% on echo 07/16/24.
- IV diuresis as above.
- GDMT limited by hypotension and CKD4.
- MDT ICD in place.
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
- monitor with diuresis.
CAD - stable w/o angina.
- s/p CABG 05/13/2017, LHC 03/22/2024 with patent LOGAN to mid LAD, patent SVG to RPDA.
- non-ischemic myocardial injury due to acute HFrEF, initial troponin 0.094.
- continue aspirin and carvedilol, Lipitor.
Paroxysmal Afib - stable.
- on Eliquis for OAC.
- continue Toprol.
AVR - bicuspid AV with severe and dilated ascending aorta s/p bioprosthetic SAVR (#27 Braden 2800) 05/13/2017.
- aortic root dilation s/p aortic root replacement (#30 Hemashield [place] tube graft).
- stable on echo, AV peak/mean gradients 12/7 mmHg.
Ventricular tachycardia - episode on 06/25/24.
- has Medtronic single chamber ICD placed in Sep 2022 for VT.
- continue Amiodarone 200mg BID.
DATA:
C 06/21/24: Normal biventricular filling pressures (probably low given his degree of cardiomyopathy), normal pulmonary artery pressure, and severely reduced cardiac index in the setting of high SVR.
CO/CI 3.05/1.50 L/min/m2
PCWP 8 mmHg at weight of 179 lbs.
SVR 2386 dsc*-5
RECOMMENDATIONS:
1. Hold diuresis and adjust to as needed to achieve euvolemia as patient appears to be at current dry weight (179 lbs).
2. Start afterload reduction with hydralazine and isosorbide dinitrate titrated for MAP goal 65-75.
3. Consideration for outpatient consultation with palliative care given limited options for managing end-stage cardiomyopathy.
Cardiac cath 03/22/2024:
1. Right dominant circulation with an 80% lesion in the mid LAD followed by a 60% lesion in the more distal mid LAD and a chronic total occlusion of the proximal right coronary artery through the bifurcation, status post prior bypass (patent LOGAN
to mid LAD, patent SVG to RPDA, backfilling the large RPL), grossly unchanged from prior cardiac catheterization (09/17/2022).
2. Status post bioprosthetic aortic valve replacement without significant gradient on pullback.
3. Moderately elevated filling pressures (LVEDP = 20 mmHg, PCWP = 21 mmHg at 88.9 kg), likely appropriate given his known degree of LV dysfunction (LVEF 30-35%).
4. 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
5. Single-chamber ICD is observed.
Data Reviewed
-
EKG: Tracing Personally Visualized and interpreted (Vpaced 62 bpm)
Radiology: Report Reviewed by me
Medical Tests (Nuc Med, Echo etc): Report Reviewed by me (echo 07/16/24: EF 30-35%, global hypokinesis, mild/mod MR, bio AV peak/mean gradient 12/7mmHg, mod TR PASP 40-45 mmHg) and Other (cath reports as above)
Labs: Labs Reviewed by me
Old Records: Reviewed (as above)
--- NOTE | 2024-07-16 11:34 | CM ---
Addendum entered by Gayatri Wade 07/16/24 12:26:
Per provider pt requesting to speak to hospice on Wednesday 07/19 when his is back from [place], pt would like to use [facility]. [place] text sent to Sandra Paz informing her of above.
Addendum entered by Maranda Pierson 07/16/24 11:43:
Need to verify Pharmacy with spouse when she is available
Original Note:
Met with patient at bedside in the ED
Patient came from [facility]; per facility patient was admitted on 07/03; patient was discharged when sent via EMS to ED;
NO BED ON HOLD @ [facility]; patient is not agreeable to return to facility if SNF is recommended
IMM benefit explained; form signed @ 1125
Patient lives in a multilevel home with ; powder room 1st floor; full flight of steps to 2nd floor bath/bedroom; his bath has stall shower
PLOF: patient reported that he was independent at baseline with personal care; ambulated with a rolling walker; no longer driving
DME: Nebulizer; Medtronic single chamber ICD placed in Sep 2022 for VT
To be determined if able to transport
No Home Health utilization history
Discharge plan to be determined; Case Management will monitor and support coordination of care when medically stable
--- NOTE | 2024-07-16 14:26 | W.PN.HOSP.TC ---
Today's Communication/Plan
-
IV diuretics
O2
Hospice eval on Friday when comes back to town
Assessment / Plan
Assessment / Plan
79-year-old with extensive cardiac history including ischemic cardiomyopathy with depressed EF status post AICD pacemaker placement, aortic stenosis status post bioprosthetic aortic valve, atrial fibrillation on anticoagulation, recent defibrillator
treated V. tach and V-fib presenting to the emergency department with cough x 2 days shortness of breath and hypoxia [facility]
PLAN:
Acute exacerbation of systolic CHF
-continue telemetry
-Will continue with Bumex IV BID
-I d/w cardiology Dr. Huffman, and with patient, he is interested in hospice given his multiple readmissions for end-stage disease with no further treatment options. Patient wants to wait until his is back in town from her trip to [place]
where she is having the of her mother. I have placed a consult for hospice for Friday. In the meantime we will try to get him as dry as possible as BP allows.
-Continue fluid restriction
-Daily weights and ins and outs
-Device interrogated, no acute events
-echo reviewed EF 30 to 35% with global hypokinesis and septal inferior akinesis and mild to moderate MR and moderate TR but overall unchanged from previous
Troponin is chronically a bit elevated
AFIB -paced rhythm at 60
-Continue Amio 200 daily
-Continue his Coreg
-Apixaban
COPD - currently on 2 L, coughing but no wheezing or increased wob. No acute consolidation
- doxycycline
- nebs as above
- keep sat > 93
- incentive spirometry
- -cough suppression
- hold off steroids for now
DVT PPX - on apixaban
Code status - DNR
Anticipated Discharge: > 48 hours
Subjective/Interval History
-
Date of Service: July 16, 2024
Patient continues to report shortness of breath and cough and weakness
Objective Data
-
Labs:
Laboratory Results
07/16/24
06:06
WBC 7.7
Hgb 10.7 L
Hct 32.4 L
Plt Count 211
Sodium 139
Potassium 3.4 L
Chloride 105
Carbon Dioxide 26
BUN 32 H
Creatinine 2.4 H
Glucose 109 H
Calcium 9.4
Vital Signs:
Vital Signs
Temp Pulse Resp BP Pulse Ox
98.7 F 68 18 107/63 91
07/16/24 13:06 07/16/24 13:06 07/16/24 13:06 07/16/24 13:06 07/16/24 13:06
I&O
07/15/24 07/16/24 07/17/24
06:59 06:59 06:59
Output Total 400 / 400
Balance -400 / -400
Review of Systems
-
History Source: Patient
All other systems: Reviewed and negative
Physical Exam
-
General: No Apparent Distress and Appears Chronically Ill
HEENT: Moist Mucous Membranes, Anicteric, Vidor Conjunctivae, PERRLA and Neck Non Tender
Respiratory: Rales, Non Labored Respirations and Decreased Breath Sounds; Negative Wheezes
Cardiac: Irregular Rhythm and Murmur
GI: Soft, Nontender, Normal Bowel Sounds, Distended and No Hepatosplenomegaly
Musculoskeletal: No Clubbing, No Cyanosis and No Edema
Skin: Warm and Dry
Neuro: Awake and AO x 3
Hematologic / Lymphatic: No Lymphadenopathy
Psych: Calm
Data Reviewed
-
Diagnostic Radiology: Image personally visualized and interpreted, Discussed with Patient and Other (CXR)
Labs: Labs Reviewed by me and Discussed with Patient
[2024-07-16] MEDS: LIPITOR 40 MG PO (21:57)
[2024-07-16] MEDS: NEURONTIN 600 MG PO (21:57)
[2024-07-17] MEDS: MELATONIN 3 MG PO (01:24)
[2024-07-17 03:09] VITALS: BP 110/52
[2024-07-17 06:00] VITALS: BMI 24.6
[2024-07-17] MEDS: SYMBICORT 160/4.5 MCG INHALER 2 PUFF INH (07:32)
[2024-07-17] MEDS: SPIRIVA RESPIMAT 2.5 MCG 2 PUFF INH (07:32)
[2024-07-17 07:48] VITALS: BP 131/64
[2024-07-17] MEDS: PROTONIX 40 MG PO ×2 (07:49→20:17)
[2024-07-17] MEDS: VIBRAMYCIN 100 MG PO ×2 (07:49→20:17)
[2024-07-17] MEDS: BUMEX 2 MG IV ×2 (07:50→16:08)
[2024-07-17] MEDS: ELIQUIS 5 MG PO ×2 (07:50→20:18)
[2024-07-17] MEDS: PACERONE 200 MG PO ×2 (07:50→20:10)
[2024-07-17] MEDS: TOPROL XL 12.5 MG PO ×2 (07:50→20:18)
[2024-07-17] MEDS: MIRALAX PO ×2 (07:51→07:59)
[2024-07-17 08:09] LABS: Blood Urea Nitrogen 32 mg/dl (9-20); Calcium 9.5 mg/dl (8.4-10.2); Carbon Dioxide 30 mmol/L (22-30); Chloride 104 mmol/L (98-107); Estimated Creatinine Clearance 30 ml/min; Glucose 101 mg/dl (70-99); Potassium 3.9 mmol/L (3.5-5.1); Sodium 141 mmol/L (135-145); eGFR 29.91
[2024-07-17] MEDS: TYLENOL 650 MG PO (10:50)
[2024-07-17 11:30] LABS: Free T4 1.98 ng/dl (0.78-2.19)
[2024-07-17 12:00] VITALS: BP 100/57
--- NOTE | 2024-07-17 12:32 | W.PN.CD ---
Addendum entered and electronically signed by Yoan Huffman MD 07/17/24 16:47:
Patient seen and examined in collaboration with PGY 2 Resident; agree with below.
- Patient still with shortness of breath at times.
- Physical examination: Regular rate and rhythm, 1/6 systolic murmur; scant bibasilar rhonchi; trace to 1+ edema.
- LVEF 30-35%%; volume status is relatively stable/slowly improving.
- Patient has had 5 hospitalizations over the past 8 months for CHF/COPD exacerbations; poor prognosis overall.
- Maintain conservative cardiac management.
- Continue Bumex 2 mg IV BID.
- Patient also with cognitive impairment--very forgetful memory (does not recall any events from yesterday).
- Palliative Care consultation should be initiated at this point for future goals of care for patient at home.
Original Note:
Documented by User: Edwin Paul MD, Resident 07/17/24 13:28
Today's Communication / Plan
-
* IV bumetanide.
* [id number] discussion on Friday.
Impression / Plan
-
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
Stage D heart failure
- 5 admissions for HFrEF in the last 7 months!
- EF 30-35% on echo 07/16/24.
- agree with IV bumetanide 2 mg BID as hemodynamics allow.
- last admission his outpatient Bumex was reduced to 2mg daily due to hypotension (typically on Bumex 3mg BID).
- continue daily weights, I&Os, fluid/sodium restrictions.
- Switch metoprolol succinate 12.5 mg BID to 25 mg once a day.
- RHC 06/21/24 as below; he did not tolerating Imdur due to hypotension.
- Kkrnu-sb-[id number] discussion when returns from [place] on Friday.
- Hospice would not be inappropriate.
End-stage cardiomyopathy - EF 30-35% on echo 07/16/24.
- IV diuresis as above.
- GDMT limited by hypotension and CKD4.
- MDT ICD in place.
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
- monitor with diuresis.
CAD - stable w/o angina.
- s/p CABG 05/13/2017, LHC 03/22/2024 with patent LOGAN to mid LAD, patent SVG to RPDA.
- non-ischemic myocardial injury due to acute HFrEF, initial troponin 0.094.
- continue aspirin and carvedilol, Lipitor.
Paroxysmal Afib - stable.
- on Eliquis for OAC.
- continue Toprol.
AVR - bicuspid AV with severe and dilated ascending aorta s/p bioprosthetic SAVR (#27 Braden 2800) 05/13/2017.
- aortic root dilation s/p aortic root replacement (#30 Hemashield [place] tube graft).
- stable on echo, AV peak/mean gradients 12/7 mmHg.
Ventricular tachycardia - episode on 06/25/24.
- has Medtronic single chamber ICD placed in Sep 2022 for VT.
- continue Amiodarone 200mg BID.
DATA:
C 06/21/24: Normal biventricular filling pressures (probably low given his degree of cardiomyopathy), normal pulmonary artery pressure, and severely reduced cardiac index in the setting of high SVR.
CO/CI 3.05/1.50 L/min/m2
PCWP 8 mmHg at weight of 179 lbs.
SVR 2386 dsc*-5
RECOMMENDATIONS:
1. Hold diuresis and adjust to as needed to achieve euvolemia as patient appears to be at current dry weight (179 lbs).
2. Start afterload reduction with hydralazine and isosorbide dinitrate titrated for MAP goal 65-75.
3. Consideration for outpatient consultation with palliative care given limited options for managing end-stage cardiomyopathy.
Cardiac cath 03/22/2024:
1. Right dominant circulation with an 80% lesion in the mid LAD followed by a 60% lesion in the more distal mid LAD and a chronic total occlusion of the proximal right coronary artery through the bifurcation, status post prior bypass (patent LOGAN
to mid LAD, patent SVG to RPDA, backfilling the large RPL), grossly unchanged from prior cardiac catheterization (09/17/2022).
2. Status post bioprosthetic aortic valve replacement without significant gradient on pullback.
3. Moderately elevated filling pressures (LVEDP = 20 mmHg, PCWP = 21 mmHg at 88.9 kg), likely appropriate given his known degree of LV dysfunction (LVEF 30-35%).
4. 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
5. Single-chamber ICD is observed.
Physical Exam
Vital Signs/Labs
Vital Signs
Temp Pulse Resp BP Pulse Ox
97.8 F 62 18 100/57 96
07/17/24 12:00 07/17/24 12:00 07/17/24 12:00 07/17/24 12:00 07/17/24 12:00
07/16/24 07/17/24 07/18/24
06:59 06:59 06:59
Actual Weight 85.7 kg 82.185 kg
07/16/24 06:06
07/17/24 07:13
Magnesium 2.5 mg/dl (1.6-2.3) H 07/16/24 06:06
Free T4 1.98 ng/dl (0.78-2.19) 07/17/24 07:13
07/15/24
22:42
Mqt-F-Typjtgkqgef Pept 8640
LAB Results
07/16/24
06:06
Troponin I 0.094 H*
Data Reviewed
-
Date of Service: July 17, 2024

Documented by User: Yoan Huffman MD 07/17/24 16:44
Data Reviewed
-
EKG: Tracing Personally Visualized and interpreted (Telemetry: Atrial fibrillation/V paced)
Echo: Tracing Personally Visualized and interpreted (LVEF 30-35%, global hypokinesis with septal inferior akinesis.)
Labs: Labs Reviewed by me
--- NOTE | 2024-07-17 14:07 | W.PN.HOSP.TC ---
Today's Communication/Plan
-
Diuresis
Assessment / Plan
Assessment / Plan
79-year-old with shortness of breath patient has an AICD. During that admission he was also started on amiodarone patient has been having a lot of coughing and shortness of breath weight has increased about 3 pounds. This is his fifth hospital
admission over the past 8 months and third admission in the past month.
Echo-EF 30 to 35%. Global hypokinesis with septal and inferior akinesis. Normal RV size and systolic function. Mild to moderate MR. Bioprosthetic aortic valve. Moderate TR. Pulmonary artery pressure 40 to 45 mmHg
Right heart cath 06/21/2024-normal biventricular filling pressures, normal pulmonary artery pressure and severely reduced cardiac index in the setting of high SVR
Left heart cath 03/22/2024-right dominant circulation with 80% lesion in the LAD followed by 60% lesion in the more distal LAD and a chronic total occlusion of the proximal RCA through bifurcation status post prior bypass grossly unchanged from prior
cath in September 2022. LVEDP was 20 mmHg
Chest x-ray-mild interstitial cardiogenic pulmonary edema, mild left lower lobe opacity, probable small left pleural effusion, moderate bilateral emphysema, previous right upper lobectomy, previous CABG, ICD
CVS: S1-S2 normal
Chest: CTA B/L
Abdomen: Soft, NT / Bowel sounds present
Extremities: No edema
# Acute hypoxic respiratory insufficiency secondary to CHF
# Acute on chronic HFrEF
Ejection fraction 30 to 35% on echo 07/16/2024
proBNP 8640 was 4560 on 06/26/2024
Ischemic cardiomyopathy
Continue diuresis with IV Bumex
Device interrogated-no acute events
Goal-directed therapy difficult because of CKD and hypotension
Follow daily weights and intake output charts
Cardiology evaluation
# Coronary artery disease history of CABG and biological AVR and ascending aortic tube graft replacement 2017
# COPD-continue doxycycline for acute bronchitis, nebulizer treatments
Patient is on budesonide inhaler, Advair inhaler, ipratropium, Incruse Ellipta as outpatient-continue equivalents
# Paroxysmal atrial fibrillation-continue amiodarone, Eliquis, metoprolol
# History of VT with MDT ICD
# Bicuspid aortic valve with severe aortic stenosis and dilated aortic root status post bioprosthetic SAVR 05/13/2017
# Elevated troponin-nonischemic myocardial injury
# Anemia of chronic disease
# Hypokalemia-resolved
# Hyperlipidemia-continue statin
# Neuropathy NOS-on gabapentin 300 in the morning and 600 at bedtime
# GERD/peptic ulcer disease-continue PPI
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 Need to repeat this as outpatient
# History of stroke-continue Eliquis and statin
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
# CKD stage IV
# Blind left eye
# Ambulatory dysfunction
# Ex-smoker
# DVT prophylaxis-Eliquis
# Full code
Hospice discussions were initiated. Patient wants his to come back from [place].
Anticipated Discharge: 24 - 48 hours
Subjective/Interval History
-
Date of Service: July 17, 2024
Objective Data
-
Labs:
Laboratory Results
07/17/24
07:13
Sodium 141
Potassium 3.9
Chloride 104
Carbon Dioxide 30
BUN 32 H
Creatinine 2.2 H
Glucose 101 H
Calcium 9.5
Vital Signs:
Vital Signs
Temp Pulse Resp BP Pulse Ox
97.8 F 62 18 100/57 96
07/17/24 12:00 07/17/24 12:00 07/17/24 12:00 07/17/24 12:00 07/17/24 12:00
I&O
07/16/24 07/17/24 07/18/24
06:59 06:59 06:59
Output Total 1400 / 1400
Balance -1400 / -1400
--- NOTE | 2024-07-17 16:09 | CM ---
CM reviewed chart, plan for hospice to speak with patient and Friday when in from [place]. CM will continue to follow for all discharge planning needs.
Plan; Hospice to speak with patient and Friday
[2024-07-17 16:10] VITALS: BP 113/59
[2024-07-17] MEDS: ROBITUSSIN DM 5 ML PO ×2 (16:19→23:37)
[2024-07-17 19:27] VITALS: BP 117/62
[2024-07-17] MEDS: ADVAIR HFA 45/21 MCG INHALER 2 PUFF INH (20:28)
[2024-07-17] MEDS: NEURONTIN 600 MG PO (21:58)
[2024-07-17] MEDS: LIPITOR 40 MG PO (21:59)
[2024-07-17 23:31] VITALS: BP 117/59
[2024-07-18 03:26] VITALS: BP 116/61
[2024-07-18 06:25] LABS: Blood Urea Nitrogen 31 mg/dl (9-20); Calcium 9.7 mg/dl (8.4-10.2); Carbon Dioxide 29 mmol/L (22-30); Chloride 104 mmol/L (98-107); Estimated Creatinine Clearance 32 ml/min; Glucose 90 mg/dl (70-99); Potassium 3.1 mmol/L (3.5-5.1); Sodium 140 mmol/L (135-145); eGFR 31.63
[2024-07-18 07:20] VITALS: BP 131/70
[2024-07-18] MEDS: PROTONIX 40 MG PO ×2 (07:25→20:20)
[2024-07-18] MEDS: MAGNESIUM OXIDE 500 MG PO (07:25)
[2024-07-18] MEDS: ELIQUIS 5 MG PO ×2 (07:26→20:19)
[2024-07-18] MEDS: ROBITUSSIN DM 5 ML PO ×3 (07:26→20:25)
[2024-07-18] MEDS: BUMEX 2 MG IV ×2 (07:26→16:35)
[2024-07-18] MEDS: PACERONE 200 MG PO ×2 (07:34→20:20)
[2024-07-18] MEDS: MIRALAX PO (07:34)
[2024-07-18] MEDS: TOPROL XL 25 MG PO (07:42)
[2024-07-18] MEDS: VIBRAMYCIN 100 MG PO ×2 (07:42→20:19)
[2024-07-18] MEDS: ADVAIR HFA 45/21 MCG INHALER 2 PUFF INH ×2 (08:29→20:36)
[2024-07-18] MEDS: PULMICORT 0.5 MG INH (08:29)
[2024-07-18] MEDS: KCL 40 MEQ PO (09:00)
[2024-07-18 11:10] VITALS: BP 125/65
[2024-07-18 11:19] VITALS: BMI 24.2
--- NOTE | 2024-07-18 11:28 | HOSPNOTE ---
Hospice referral received. Plan is to speak to patient and tomorrow when the is back from [place]. More information to follow. CM updated.
[2024-07-18] MEDS: DELTASONE 40 MG PO (12:26)
[2024-07-18] MEDS: TESSALON PERLES 200 MG PO (12:28)
--- NOTE | 2024-07-18 13:36 | W.PN.CD ---
Today's Communication / Plan
-
- Continue Bumex 2 mg IV BID.
- Sibut-bi-tcob discussion when returns from [place] on Friday.
- Hospice recommended.
Impression / Plan
-
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
- 5 admissions for HFrEF in the last 7 months.
- EF 30-35% on echo 07/16/24.
- Continue Bumex 2 mg IV BID.
- last admission his outpatient Bumex was reduced to 2mg daily due to hypotension (typically on Bumex 3mg BID).
- continue daily weights, I&Os, fluid/sodium restrictions.
- Continue Toprol-XL 25 mg once a day.
- [facility] 06/21/24 as below; he did not tolerating Imdur due to hypotension.
- Pudzl-at-qrrl discussion when returns from [place] on Friday.
- Hospice recommended.
- GDMT limited by hypotension and CKD4.
- MDT ICD in place.
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
- monitor with diuresis.
- Creatinine relatively stable.
CAD - stable w/o angina.
- s/p CABG 05/13/2017, C 03/22/2024 with patent LOGAN to mid LAD, patent SVG to RPDA.
- non-ischemic myocardial injury due to acute HFrEF, initial troponin 0.094.
- continue aspirin and carvedilol, Lipitor.
Paroxysmal Afib - stable.
- on Eliquis for OAC.
- Toprol-XL as above.
AVR - bicuspid AV with severe and dilated ascending aorta s/p bioprosthetic SAVR (#27 Braden 2800) 05/13/2017.
- aortic root dilation s/p aortic root replacement (#30 Hemashield [place] tube graft).
- stable on echo, AV peak/mean gradients 12/7 mmHg.
Ventricular tachycardia - episode on 06/25/24.
- has Medtronic single chamber ICD placed in Sep 2022 for VT.
- continue Amiodarone 200 mg BID.
DATA:
RHC 06/21/24: Normal biventricular filling pressures (probably low given his degree of cardiomyopathy), normal pulmonary artery pressure, and severely reduced cardiac index in the setting of high SVR.
CO/CI 3.05/1.50 L/min/m2
PCWP 8 mmHg at weight of 179 lbs.
SVR 2386 dsc*-5
RECOMMENDATIONS:
1. Hold diuresis and adjust to as needed to achieve euvolemia as patient appears to be at current dry weight (179 lbs).
2. Start afterload reduction with hydralazine and isosorbide dinitrate titrated for MAP goal 65-75.
3. Consideration for outpatient consultation with palliative care given limited options for managing end-stage cardiomyopathy.
Cardiac cath 03/22/2024:
1. Right dominant circulation with an 80% lesion in the mid LAD followed by a 60% lesion in the more distal mid LAD and a chronic total occlusion of the proximal right coronary artery through the bifurcation, status post prior bypass (patent LOGAN
to mid LAD, patent SVG to RPDA, backfilling the large RPL), grossly unchanged from prior cardiac catheterization (09/17/2022).
2. Status post bioprosthetic aortic valve replacement without significant gradient on pullback.
3. Moderately elevated filling pressures (LVEDP = 20 mmHg, PCWP = 21 mmHg at 88.9 kg), likely appropriate given his known degree of LV dysfunction (LVEF 30-35%).
4. 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
5. Single-chamber ICD is observed.
Physical Exam
Vital Signs/Labs
Vital Signs
Temp Pulse Resp BP Pulse Ox
97.8 F 64 16 125/65 93
07/18/24 11:10 07/18/24 11:10 07/18/24 11:10 07/18/24 11:10 07/18/24 11:10
07/17/24 07/18/24 07/19/24
06:59 06:59 06:59
Actual Weight 82.185 kg 80.966 kg
07/16/24 06:06
07/18/24 05:39
Magnesium 2.5 mg/dl (1.6-2.3) H 07/16/24 06:06
Free T4 1.98 ng/dl (0.78-2.19) 07/17/24 07:13
07/15/24
22:42
Ybp-B-Ilxqaujqqrp Pept 8640
LAB Results
07/16/24
06:06
Troponin I 0.094 H*
Physical Exam
Constitutional: No acute distress and Comfortable
EENT: Anicteric
Cardiovascular: Rhythm & rate is regular, Pedal edema present (Trace), Systolic murmur present (1/6) and S1S2 is normal
Respiratory: Respiratory effort normal and Lungs clear to auscul.
GI: Soft
Neuro/Psych: Alert and Oriented
Other: Skin (Warm, dry)
Data Reviewed
-
Date of Service: July 18, 2024
EKG: Tracing Personally Visualized and interpreted (Telemetry: Atrial fibrillation, V paced)
Labs: Labs Reviewed by me
--- NOTE | 2024-07-18 14:23 | W.PN.HOSP.TC ---
Today's Communication/Plan
-
PT evaluation
Continue diuresis
Replace potassium
Assessment / Plan
Assessment / Plan
79-year-old with shortness of breath patient has an AICD. During that admission he was also started on amiodarone patient has been having a lot of coughing and shortness of breath weight has increased about 3 pounds. This is his fifth hospital
admission over the past 8 months and third admission in the past month.
Echo-EF 30 to 35%. Global hypokinesis with septal and inferior akinesis. Normal RV size and systolic function. Mild to moderate MR. Bioprosthetic aortic valve. Moderate TR. Pulmonary artery pressure 40 to 45 mmHg
Right heart cath 06/21/2024-normal biventricular filling pressures, normal pulmonary artery pressure and severely reduced cardiac index in the setting of high SVR
Left heart cath 03/22/2024-right dominant circulation with 80% lesion in the LAD followed by 60% lesion in the more distal LAD and a chronic total occlusion of the proximal RCA through bifurcation status post prior bypass grossly unchanged from prior
cath in September 2022. LVEDP was 20 mmHg
Chest x-ray-mild interstitial cardiogenic pulmonary edema, mild left lower lobe opacity, probable small left pleural effusion, moderate bilateral emphysema, previous right upper lobectomy, previous CABG, ICD
CVS: S1-S2 normal
Chest: CTA B/L
Abdomen: Soft, NT / Bowel sounds present
Extremities: No edema
# Acute hypoxic respiratory insufficiency secondary to CHF
# Acute on chronic HFrEF
Ejection fraction 30 to 35% on echo 07/16/2024
proBNP 8640 was 4560 on 06/26/2024
Ischemic cardiomyopathy
Continue diuresis with IV Bumex
Device interrogated-no acute events
Goal-directed therapy difficult because of CKD and hypotension
Follow daily weights and intake output charts
Cardiology evaluation
# Coronary artery disease history of CABG and biological AVR and ascending aortic tube graft replacement 2017
# COPD-continue doxycycline for acute bronchitis, nebulizer treatments
Start low-dose steroids for COPD exacerbation
Patient is on budesonide inhaler, Advair inhaler, ipratropium, Incruse Ellipta as outpatient-continue equivalents
# Paroxysmal atrial fibrillation-continue amiodarone, Eliquis, metoprolol
# History of VT with MDT ICD
# Bicuspid aortic valve with severe aortic stenosis and dilated aortic root status post bioprosthetic SAVR 05/13/2017
# Elevated troponin-nonischemic myocardial injury
# Anemia of chronic disease
# Hypokalemia-resolved
# Hyperlipidemia-continue statin
# Neuropathy NOS-on gabapentin 300 in the morning and 600 at bedtime
# GERD/peptic ulcer disease-continue PPI
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 Need to repeat this as outpatient
# History of stroke-continue Eliquis and statin
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
# CKD stage IV
# Blind left eye
# Ambulatory dysfunction
# Ex-smoker
# DVT prophylaxis-Eliquis
# Full code
Hospice discussions were initiated. Patient wants his to come back from [place].
Spoke to patient's and updated regarding above. She is not sure about hospice she wants to talk to him when she reaches back from [place]. She will be here tomorrow.
Anticipated Discharge: > 48 hours
Subjective/Interval History
-
Date of Service: July 18, 2024
Objective Data
-
Labs:
Laboratory Results
07/18/24
05:39
Sodium 140
Potassium 3.1 L
Chloride 104
Carbon Dioxide 29
BUN 31 H
Creatinine 2.1 H
Glucose 90
Calcium 9.7
Vital Signs:
Vital Signs
Temp Pulse Resp BP Pulse Ox
97.8 F 64 16 125/65 93
06/08/25 11:10 07/18/24 11:10 07/18/24 11:10 07/18/24 11:10 07/18/24 11:10
I&O
07/17/24 07/18/24 07/19/24
06:59 06:59 06:59
Intake Total 1100 / 1100
Output Total 1400 / 1400 1850 / 1850
Balance -1400 / -1400 -750 / -750
[2024-07-18 15:20] VITALS: BP 133/61
--- NOTE | 2024-07-18 16:16 | CM ---
CM reviewed chart, reviewed with Hospice, will plan to speak with patient/ tomorrow. Referral placed in [facility]. CM will continue to follow for all discharge planning needs.
Plan; Hospice eval tomorrow
[2024-07-18 19:35] VITALS: BP 128/66
[2024-07-18] MEDS: NEURONTIN 600 MG PO (20:19)
[2024-07-18] MEDS: LIPITOR 40 MG PO (20:19)
[2024-07-18] MEDS: KCL 20 MEQ PO (20:29)
[2024-07-18 23:37] VITALS: BP 131/63
[2024-07-19] VITALS (7 sets, daily range): BP systolic 115–136; BP diastolic 57–75; PULSE 74; O2SAT 92; BMI 24.3
[2024-07-19] MEDS: SPIRIVA RESPIMAT 2.5 MCG 2 PUFF INH (07:59)
[2024-07-19] MEDS: ADVAIR HFA 45/21 MCG INHALER 2 PUFF INH ×2 (08:00→19:54)
[2024-07-19 08:49] LABS: Blood Urea Nitrogen 34 mg/dl (9-20); Carbon Dioxide 24 mmol/L (22-30); Chloride 106 mmol/L (98-107); Estimated Creatinine Clearance 29 ml/min; Glucose 105 mg/dl (70-99); Potassium 3.8 mmol/L (3.5-5.1); Sodium 140 mmol/L (135-145); eGFR 28.35
[2024-07-19] MEDS: PROTONIX 40 MG PO ×2 (09:13→19:36)
[2024-07-19] MEDS: DELTASONE 40 MG PO (09:13)
[2024-07-19] MEDS: ELIQUIS 5 MG PO ×2 (09:14→19:35)
[2024-07-19] MEDS: VIBRAMYCIN 100 MG PO ×2 (09:14→19:36)
[2024-07-19] MEDS: TOPROL XL 25 MG PO (09:15)
[2024-07-19] MEDS: BUMEX 2 MG IV ×2 (09:15→15:53)
[2024-07-19] MEDS: MIRALAX 17 GRAMS PO (09:16)
[2024-07-19] MEDS: PACERONE 200 MG PO ×2 (09:22→19:35)
[2024-07-19] MEDS: ROBITUSSIN DM 5 ML PO (10:44)
--- NOTE | 2024-07-19 11:22 | CM ---
Addendum entered by Анна Cortes 07/19/24 16:16:
Patient for discharge tomorrow, requested 11:00 a.m. ambulance transport. Kayleigh aware, IMM verbally reviewed, placed in chart.
Plan; home with Hospice tomorrow 07/20, requested 11:00 a.m. transport
[facility]
Original Note:
CM reviewed chart, patient seen bedside, reports his Kayleigh will be coming in today, agreeable to meet with Hospice. Patient reports he will not return to a facility, came from [facility], otherwise lives at home with his . TT to
liaison. CM will continue to follow for all discharge planning needs.
Plan; Hospice meeting, pending patient decision
--- NOTE | 2024-07-19 13:03 | W.PN.HOSP.TC ---
Today's Communication/Plan
-
Diuresis
Hospice eval
Assessment / Plan
Assessment / Plan
79-year-old with shortness of breath patient has an AICD. During that admission he was also started on amiodarone patient has been having a lot of coughing and shortness of breath weight has increased about 3 pounds. This is his fifth hospital
admission over the past 8 months and third admission in the past month.
Echo-EF 30 to 35%. Global hypokinesis with septal and inferior akinesis. Normal RV size and systolic function. Mild to moderate MR. Bioprosthetic aortic valve. Moderate TR. Pulmonary artery pressure 40 to 45 mmHg
Right heart cath 06/21/2024-normal biventricular filling pressures, normal pulmonary artery pressure and severely reduced cardiac index in the setting of high SVR
Left heart cath 03/22/2024-right dominant circulation with 80% lesion in the LAD followed by 60% lesion in the more distal LAD and a chronic total occlusion of the proximal RCA through bifurcation status post prior bypass grossly unchanged from prior
cath in September 2022. LVEDP was 20 mmHg
Chest x-ray-mild interstitial cardiogenic pulmonary edema, mild left lower lobe opacity, probable small left pleural effusion, moderate bilateral emphysema, previous right upper lobectomy, previous CABG, ICD
CVS: S1-S2 normal
Chest: CTA B/L
Abdomen: Soft, NT / Bowel sounds present
Extremities: No edema
# Acute hypoxic respiratory insufficiency secondary to CHF- Wean O2 as tolerated
# Acute on chronic HFrEF
Ejection fraction 30 to 35% on echo 07/16/2024
proBNP 8640 was 4560 on 06/26/2024
Ischemic cardiomyopathy
Continue diuresis with IV Bumex
Device interrogated-no acute events
Goal-directed therapy difficult because of CKD and hypotension
Follow daily weights and intake output charts
Cardiology evaluation
# Coronary artery disease history of CABG and biological AVR and ascending aortic tube graft replacement 2017
# COPD-continue doxycycline for acute bronchitis, nebulizer treatments
Start low-dose steroids for COPD exacerbation.
Patient is on budesonide inhaler, Advair inhaler, ipratropium, Incruse Ellipta as outpatient-continue equivalents.
# Paroxysmal atrial fibrillation-continue amiodarone, Eliquis, metoprolol
# History of VT with MDT ICD
# Bicuspid aortic valve with severe aortic stenosis and dilated aortic root status post bioprosthetic SAVR 05/13/2017
# Elevated troponin-nonischemic myocardial injury
# Anemia of chronic disease
# Hypokalemia-resolved
# Hyperlipidemia-continue statin
# Neuropathy NOS-on gabapentin 300 in the morning and 600 at bedtime
# GERD/peptic ulcer disease-continue PPI
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 Need to repeat this as outpatient
# History of stroke-continue Eliquis and statin
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
# CKD stage IV
# Blind left eye
# Ambulatory dysfunction
# Ex-smoker
# DVT prophylaxis-Eliquis
# Full code
Hospice discussions were initiated. .
Discussed with nursing
Discussed with at bedside
Discussed with cardiology
Hospice consulted await discussions
Total time more than 50 minutes
Anticipated Discharge: 24 - 48 hours
Subjective/Interval History
-
Date of Service: July 19, 2024
Objective Data
-
Labs:
Laboratory Results
07/19/24
07:13
Sodium 140
Potassium 3.8
Chloride 106
Carbon Dioxide 24
BUN 34 H
Creatinine 2.3 H
Glucose 105 H
Calcium 10.0
Vital Signs:
Vital Signs
Temp Pulse Resp BP Pulse Ox
97.7 F 62 17 122/57 89
07/19/24 11:24 07/19/24 11:24 07/19/24 11:24 07/19/24 11:24 07/19/24 11:24
I&O
07/18/24 07/19/24 07/20/24
06:59 06:59 06:59
Intake Total 1100 / 1100 1160 / 1160
Output Total 1850 / 1850 1100 / 1100
Balance -750 / -750 60 / 60
--- NOTE | 2024-07-19 14:01 | HOSPNOTE ---
Spoke with patient and spouse and patient are in agreement with hospice and the philosophy. The patient would like to go home tomorrow 07/20. We will order equipment. OOH DNR needed on chart patient is now a DNR. Transport is needed via ambulance.
Attending and CM aware of plan.
--- NOTE | 2024-07-19 14:40 | W.PN.CD ---
Today's Communication / Plan
-
Continue Bumex 2mg IV BID
Hospice consult
Impression / Plan
-
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
- 5 admissions for HFrEF in the last 7 months.
- EF 30-35% on echo 07/16/24.
- Continue Bumex 2 mg IV BID.
- last admission his outpatient Bumex was reduced to 2mg daily due to hypotension (typically on Bumex 3mg BID).
- continue daily weights, I&Os, fluid/sodium restrictions.
- Continue Toprol-XL 25 mg once a day.
- [facility] 06/21/24 as below; he did not tolerating Imdur due to hypotension.
- Hospice consulted.
- GDMT limited by hypotension and CKD4.
- MDT ICD in place.
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
- monitor with diuresis.
- Creatinine relatively stable.
CAD - stable w/o angina.
- s/p CABG 05/13/2017, LHC 03/22/2024 with patent LOGAN to mid LAD, patent SVG to RPDA.
- non-ischemic myocardial injury due to acute HFrEF, initial troponin 0.094.
- continue aspirin and carvedilol, Lipitor.
Paroxysmal Afib - stable.
- on Eliquis for OAC.
- Toprol-XL as above.
AVR - bicuspid AV with severe and dilated ascending aorta s/p bioprosthetic SAVR (#27 Braden 2800) 05/13/2017.
- aortic root dilation s/p aortic root replacement (#30 Hemashield [place] tube graft).
- stable on echo, AV peak/mean gradients 12/7 mmHg.
Ventricular tachycardia - episode on 06/25/24.
- has Medtronic single chamber ICD placed in Sep 2022 for VT.
- continue Amiodarone 200 mg BID.
DATA:
RHC 06/21/24: Normal biventricular filling pressures (probably low given his degree of cardiomyopathy), normal pulmonary artery pressure, and severely reduced cardiac index in the setting of high SVR.
CO/CI 3.05/1.50 L/min/m2
PCWP 8 mmHg at weight of 179 lbs.
SVR 2386 dsc*-5
RECOMMENDATIONS:
1. Hold diuresis and adjust to as needed to achieve euvolemia as patient appears to be at current dry weight (179 lbs).
2. Start afterload reduction with hydralazine and isosorbide dinitrate titrated for MAP goal 65-75.
3. Consideration for outpatient consultation with palliative care given limited options for managing end-stage cardiomyopathy.
Cardiac cath 03/22/2024:
1. Right dominant circulation with an 80% lesion in the mid LAD followed by a 60% lesion in the more distal mid LAD and a chronic total occlusion of the proximal right coronary artery through the bifurcation, status post prior bypass (patent LOGAN
to mid LAD, patent SVG to RPDA, backfilling the large RPL), grossly unchanged from prior cardiac catheterization (09/17/2022).
2. Status post bioprosthetic aortic valve replacement without significant gradient on pullback.
3. Moderately elevated filling pressures (LVEDP = 20 mmHg, PCWP = 21 mmHg at 88.9 kg), likely appropriate given his known degree of LV dysfunction (LVEF 30-35%).
4. 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
5. Single-chamber ICD is observed.
Subjective: Breathing feels slightly improved. He still has a productive cough. Abdomen is distended. He is frustrated because he feels like he was improving at rehab but was then sent back here.
Physical Exam
Vital Signs/Labs
Vital Signs
Temp Pulse Resp BP Pulse Ox
97.7 F 62 17 122/57 89
07/19/24 11:24 07/19/24 11:24 07/19/24 11:24 07/19/24 11:24 07/19/24 11:24
07/18/24 07/19/24 07/20/24
06:59 06:59 06:59
Actual Weight 179 lb
07/16/24 06:06
07/19/24 07:13
Magnesium 2.5 mg/dl (1.6-2.3) H 07/16/24 06:06
Free T4 1.98 ng/dl (0.78-2.19) 07/17/24 07:13
07/15/24
22:42
Brq-A-Fllsyqvnmkg Pept 8640
Physical Exam
Constitutional: No acute distress and Comfortable
Cardiovascular: Rhythm & rate is regular, Pedal edema is absent, S1S2 is normal and Murmur/rub/gallop absent
Respiratory: Respiratory effort normal and Crackles Present
GI: Distention present
Data Reviewed
-
Date of Service: July 19, 2024
Medical Decision Making: Reviewed Test Results, Independent Historian Assessment, Test Interpretation and Review of Case with other Provider
EKG: Tracing Personally Visualized and interpreted
Echo: Report Reviewed by me
X-Ray/CT/US/MRI/NUC/PET: Image Personally Visualized and interpreted
Labs: Labs Reviewed by me
--- NOTE | 2024-07-19 16:45 | CM ---
PT INSURANCE INFORMATION HAS NOT YET BEEN UPDATED ON CHART.
PT IS SCHEDULED FOR TRANSPORT TOMORROW 07/20/24 AT 1200 WITH [facility].
PLEASE CALL [phone] FOR UPDATED INFO ON INSURANCE OR EXT 2025.
OTHERWISE, IF INSURANCE INFORMATION IS NOT UPDATED ON PT CHART FOR BILLING BY TOMORROW PRIOR TO PT'S DEPARTURE, [facility] HAS THE RIGHT TO BILL HOSPITAL FOR PT TRANSPORT.
[2024-07-19] MEDS: LIPITOR 40 MG PO (21:18)
[2024-07-19] MEDS: NEURONTIN 600 MG PO (21:18)
[2024-07-20 03:17] VITALS: BP 110/58
[2024-07-20 06:00] VITALS: BMI 23.6
[2024-07-20] MEDS: PULMICORT 0.5 MG INH (07:22)
[2024-07-20] MEDS: ADVAIR HFA 45/21 MCG INHALER 2 PUFF INH (07:24)
[2024-07-20] MEDS: DUONEB 3 ML INH (07:24)
[2024-07-20 07:51] VITALS: BP 122/65
[2024-07-20 08:24] LABS: Blood Urea Nitrogen 37 mg/dl (9-20); Calcium 9.9 mg/dl (8.4-10.2); Carbon Dioxide 27 mmol/L (22-30); Chloride 108 mmol/L (98-107); Estimated Creatinine Clearance 29 ml/min; Glucose 108 mg/dl (70-99); Potassium 3.4 mmol/L (3.5-5.1); Sodium 142 mmol/L (135-145); eGFR 28.35
--- NOTE | 2024-07-20 09:44 | HOSPNOTE ---
Patients code status needs to be changed and I placed a call to cardiology to have the ICD turned off prior to going home today on hospice. Transport is scheduled for 12noon. Equipment will be delivered by 10am. Once patient arrives home we will
admit onto hospice services.
--- NOTE | 2024-07-20 09:44 | W.PN.CD ---
Today's Communication / Plan
-
Patient is going home on hospice
ICD therapies will be turned off
Stop amiodarone, apixaban, and atorvastatin
Cardiology medication discharge regimen: Bumex 2 mg twice daily, metoprolol 25 mg daily, potassium 40 mEq daily
Impression / Plan
-
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
- 5 admissions for HFrEF in the last 7 months.
- EF 30-35% on echo 07/16/24.
- Plan is home with Hospice today
- Discharge on Bumex 2 mg twice daily
- ICD therapies will be turned off
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
CAD - stable w/o angina.
- s/p CABG 05/13/2017, LHC 03/22/2024 with patent LOGAN to mid LAD, patent SVG to RPDA.
- non-ischemic myocardial injury due to acute HFrEF, initial troponin 0.094.
- stop ASA and statin
Paroxysmal Afib - stable.
- stop Eliquis given planning to go on Hospice
- continue Metoprolol to prevent AF w RVR
AVR - bicuspid AV with severe and dilated ascending aorta s/p bioprosthetic SAVR (#27 Braden 2800) 05/13/2017.
- aortic root dilation s/p aortic root replacement (#30 Hemashield [place] tube graft).
- stable on echo, AV peak/mean gradients 12/7 mmHg.
Ventricular tachycardia - episode on 06/25/24.
- has Medtronic single chamber ICD placed in Sep 2022 for VT.
- turn off device therapies
- stop Amiodarone
DATA:
C 06/21/24: Normal biventricular filling pressures (probably low given his degree of cardiomyopathy), normal pulmonary artery pressure, and severely reduced cardiac index in the setting of high SVR.
CO/CI 3.05/1.50 L/min/m2
PCWP 8 mmHg at weight of 179 lbs.
SVR 2386 dsc*-5
RECOMMENDATIONS:
1. Hold diuresis and adjust to as needed to achieve euvolemia as patient appears to be at current dry weight (179 lbs).
2. Start afterload reduction with hydralazine and isosorbide dinitrate titrated for MAP goal 65-75.
3. Consideration for outpatient consultation with palliative care given limited options for managing end-stage cardiomyopathy.
Cardiac cath 03/22/2024:
1. Right dominant circulation with an 80% lesion in the mid LAD followed by a 60% lesion in the more distal mid LAD and a chronic total occlusion of the proximal right coronary artery through the bifurcation, status post prior bypass (patent LOGAN
to mid LAD, patent SVG to RPDA, backfilling the large RPL), grossly unchanged from prior cardiac catheterization (09/17/2022).
2. Status post bioprosthetic aortic valve replacement without significant gradient on pullback.
3. Moderately elevated filling pressures (LVEDP = 20 mmHg, PCWP = 21 mmHg at 88.9 kg), likely appropriate given his known degree of LV dysfunction (LVEF 30-35%).
4. 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
5. Single-chamber ICD is observed.
Subjective: Patient and his decided to go home on hospice. Plans to discharge today at 11 AM.
Physical Exam
Vital Signs/Labs
Vital Signs
Temp Pulse Resp BP Pulse Ox
98.5 F 63 18 122/65 99
07/20/24 07:51 07/20/24 07:51 07/20/24 07:51 07/20/24 07:51 07/20/24 07:51
07/19/24 07/20/24 07/21/24
06:59 06:59 06:59
Actual Weight 179 lb 174 lb 2 oz
07/16/24 06:06
07/20/24 07:05
Magnesium 2.5 mg/dl (1.6-2.3) H 07/16/24 06:06
Free T4 1.98 ng/dl (0.78-2.19) 07/17/24 07:13
07/15/24
22:42
Lhs-E-Avdcbfoqihz Pept 8640
Physical Exam
Constitutional: No acute distress and Comfortable
Data Reviewed
-
Date of Service: July 20, 2024
Medical Decision Making: Reviewed Test Results
EKG: Tracing Personally Visualized and interpreted
Labs: Labs Reviewed by me
--- NOTE | 2024-07-20 09:54 | W.CAR.ICD ---
ICD Inactivation Request
-
Human Service Worker Notified: [employer]
The above vendor has been contacted to inactivate the patient's Implantable Cardioverter Defibrillator.
[2024-07-20] MEDS: MIRALAX PO (10:06)
[2024-07-20] MEDS: BUMEX IV (10:07)
[2024-07-20] MEDS: ELIQUIS PO (10:08)
[2024-07-20] MEDS: PACERONE PO (10:08)
[2024-07-20] MEDS: PROTONIX 40 MG PO (10:11)
[2024-07-20] MEDS: KCL 40 MEQ PO (10:11)
[2024-07-20] MEDS: VIBRAMYCIN 100 MG PO (10:12)
[2024-07-20] MEDS: MAGNESIUM OXIDE 500 MG PO (10:12)
[2024-07-20] MEDS: TOPROL XL 25 MG PO (10:12)
[2024-07-20] MEDS: DELTASONE 40 MG PO (10:12)
--- NOTE | 2024-07-20 10:24 | CM ---
Addendum entered by Lizz Baptiste 07/20/24 10:29:
Patient indicated that all DME had been delivered at this time.
Original Note:
Patient seen at bedside, out of hospital DNR form placed on chart and physician made aware. CM will call to patient to discuss IMM and Plan is for patient to have ambulance at noon and [facility] hospice will make arrangements for DME delivery. CM
will continue to follow for discharge planning needs.
Plan; home with [facility] hospice.
--- NOTE | 2024-07-20 10:51 | W.PN.HOSP.TC ---
Today's Communication/Plan
-
Discharge
Assessment / Plan
Assessment / Plan
79-year-old with shortness of breath patient has an AICD. During that admission he was also started on amiodarone patient has been having a lot of coughing and shortness of breath weight has increased about 3 pounds. This is his fifth hospital
admission over the past 8 months and third admission in the past month.
Echo-EF 30 to 35%. Global hypokinesis with septal and inferior akinesis. Normal RV size and systolic function. Mild to moderate MR. Bioprosthetic aortic valve. Moderate TR. Pulmonary artery pressure 40 to 45 mmHg
Right heart cath 06/21/2024-normal biventricular filling pressures, normal pulmonary artery pressure and severely reduced cardiac index in the setting of high SVR
Left heart cath 03/22/2024-right dominant circulation with 80% lesion in the LAD followed by 60% lesion in the more distal LAD and a chronic total occlusion of the proximal RCA through bifurcation status post prior bypass grossly unchanged from prior
cath in September 2022. LVEDP was 20 mmHg
Chest x-ray-mild interstitial cardiogenic pulmonary edema, mild left lower lobe opacity, probable small left pleural effusion, moderate bilateral emphysema, previous right upper lobectomy, previous CABG, ICD
CVS: S1-S2 normal
Chest: CTA B/L
Abdomen: Soft, NT / Bowel sounds present
Extremities: No edema
# Acute hypoxic respiratory insufficiency secondary to CHF- Wean O2 as tolerated
# Acute on chronic HFrEF
Ejection fraction 30 to 35% on echo 07/16/2024
proBNP 8640 was 4560 on 06/26/2024
Ischemic cardiomyopathy
Bumex PO
Device interrogated-no acute events
Goal-directed therapy difficult because of CKD and hypotension
# Coronary artery disease history of CABG and biological AVR and ascending aortic tube graft replacement 2017
# COPD-continue doxycycline for acute bronchitis, nebulizer treatments
Start low-dose steroids for COPD exacerbation.
Patient is on budesonide inhaler, Advair inhaler, ipratropium, Incruse Ellipta as outpatient-continue equivalents.
# Paroxysmal atrial fibrillation-Eliquis and amiodarone stopped. Patient will be on metoprolol
# History of VT with MDT ICD
# Bicuspid aortic valve with severe aortic stenosis and dilated aortic root status post bioprosthetic SAVR 05/13/2017
# Elevated troponin-nonischemic myocardial injury
# Anemia of chronic disease
# Hypokalemia-resolved
# Hyperlipidemia-continue statin
# Neuropathy NOS-on gabapentin 300 in the morning and 600 at bedtime-continue
# GERD/peptic ulcer disease-continue PPI
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 Need to repeat this as outpatient
# History of stroke-stopped Eliquis and statin as patient is on hospice
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
# CKD stage IV
# Blind left eye
# Ambulatory dysfunction
# Ex-smoker
# DVT prophylaxis-Eliquis stopped
# Full code
Discussed with case management
Discussed with cardiology
Discussed with nursing
ICD will be turned off. Amiodarone Eliquis and atorvastatin discontinued. Continue Bumex, metoprolol and potassium as this will help with the quality of his life.
Patient was accepted on hospice and arrangements made for discharge today.
More than 30 minutes spent in discharge including
Final examination of the patient
Summarizing hospital stay
Instructions for continuing care to all relevant caregivers
Preparation of discharge records, prescriptions, and referral forms
Total time spent (in minutes): 37 min
Anticipated Discharge: Today
Subjective/Interval History
-
Date of Service: July 20, 2024
Objective Data
-
Labs:
Laboratory Results
07/20/24
07:05
Sodium 142
Potassium 3.4 L
Chloride 108 H
Carbon Dioxide 27
BUN 37 H
Creatinine 2.3 H
Glucose 108 H
Calcium 9.9
Vital Signs:
Vital Signs
Temp Pulse Resp BP Pulse Ox
98.5 F 63 18 122/65 99
07/20/24 07:51 07/20/24 07:51 07/20/24 07:51 07/20/24 07:51 07/20/24 07:51
I&O
07/19/24 07/20/24 07/21/24
06:59 06:59 06:59
Intake Total 1160 / 1160
Output Total 1100 / 1100 700 / 700
Balance 60 / 60 -700 / -700
--- NOTE | 2024-07-20 10:59 | W.DS.TRANS ---
Addendum entered and electronically signed by Anjum Nunez MD 07/20/24 13:05:
Dictation- [id number]
Original Note:
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
-
Discharge Instructions:
Discharge Diagnosis/Procedures CHF
Coronary disease with history of CABG
COPD
Atrial fibrillation
History of VT
History of bioprosthetic aortic valve
replacement
Anemia
Hypokalemia
Hyperlipidemia
Neuropathy
GERD/peptic ulcer disease
History of partial thyroidectomy
History of stroke
History of lung cancer
Chronic kidney disease stage IV
Diet As tolerated
Activity As tolerated
Driving Restrictions No driving
Other Services Hospice
Instructions:
Stand-Alone Forms:
Changes to Home Medications: Yes
Discharge Medications:
DC Medications w/original date entered in [employer]
gabapentin 300 mg capsule 600 mg PO HS neuropatic pain 03/14/23
magnesium oxide 400 mg PO Q48H Electrolyte Repletion 03/14/23
acetaminophen 500 mg tablet (Tylenol Extra Strength) 1,000 mg PO Q4HPRN PRN mild pain 04/01/23
albuterol sulfate 2.5 mg/3 mL (0.083 %) solution for nebulization 2.5 mg inhalation R Q48H Lung/Breathing Issues 12/08/23
budesonide 0.5 mg/2 mL suspension for nebulization 0.5 mg inhalation R Q48H Lung/Breathing Issues 12/08/23
gabapentin 300 mg capsule 300 mg PO DAILY neuropathic pain 12/08/23
ipratropium bromide 0.02 % solution for inhalation 2.5 ml inhalation R Q48H Allergies 12/08/23
pantoprazole 40 mg tablet,delayed release 40 mg PO BID Gastrointestinal issue #60 tabs 12/16/23
bisacodyl 10 mg rectal suppository (Dulcolax (bisacodyl)) 10 mg FL DAILYPRN PRN if no bm aftr mom 07/16/24
guaifenesin 600 mg tablet, extended release 12 hr (Mucinex) 600 mg PO HS Cough 07/16/24
sodium phosphates 19 gram-7 gram/118 mL enema (Fleet Enema) 118 ml FL [id number] PRN if no bm aftr dulolcax 07/16/24
benzonatate 100 mg capsule 200 mg (2 x 100 mg) PO TIDPRN PRN cough #30 caps 07/20/24
bumetanide 2 mg tablet 2 mg PO BID AT 0800,1600 Fluid retention/Swelling #30 tabs 07/20/24
metoprolol tartrate 25 mg tablet 25 mg PO DAILY Blood Pressure #0 tabs 07/20/24
polyethylene glycol 3350 17 gram oral powder packet 17 g PO DAILY Constipation #30 ea 07/20/24
potassium chloride 20 mEq tablet,extended release(part/cryst) 40 meq (2 x 20 mEq) PO DAILY Electrolyte Repletion #30 tabs 07/20/24
Home Medication Changes
Amiodarone, statin, Incruse Ellipta, Advair, Eliquis stopped
Pending Results: No
[2024-07-20 11:23] VITALS: BP 108/59
--- NOTE | 2024-07-20 11:43 | W.PN.UPDATE ---
Update Note
Progress Note Update
Spoke to . CODE STATUS changed to DNR. At hospital form signed
ICD was turned off
--- NOTE | 2024-07-20 12:03 | W.ICD.INACTI ---
ICD Device Inactivated
-
The patient's ICD device has been inactivated by the vendor.
[2024-07-20] MEDS: TESSALON PERLES 200 MG PO (12:16)
--- NOTE | 2024-07-21 13:20 | W.HF.CON ---
Heart Failure
- LV Function
Left ventricular function study result: LV Ejection fraction </= 35%
Ejection Fraction Percentage: 30-35
- ARNI
Patient already on ARNI: No
Heart Failure ARNI Contraindication: Comfort Measures Only
- ACEI/ARB
Patient already on ACEI/ARB: No
Heart Failure ACEI/ARB Contraindication: Comfort Measures Only
- Beta Thanh
Patient already on Evidence Based Beta Thanh: No
Heart Failure Evidence Based Beta Thanh: Comfort Measures Only
- Mineralocorticord Receptor Antagonist
Patient already on MRA: No
Heart Failure MRA Contraindication: Comfort Measures Only
- SGLT-2 Inhibitor
Patient already on SGLT-2 Inhibitor: No
Heart Failure SGLT-2 Inhibitor Contraindication: Comfort Measures
- Afib Anticoagulation
Patient already on Anticoagulation for Afib: No
Heart Failure Afib Anticoagulation Contraindication: Comfort Measures Only
- NYHA CHF Classification
NYHA CHF Classification Level: Class III - Symptoms w/ min exertion, interferes w/ nml daily activity
- ACC/AHA Stage
ACC/AHA Stage: Stage C: Symptomatic Heart Failure
== END 2024-07-20 13:11 | disposition hospice, home (50) | DRG 291 ==
LOC: 4 WEST ACU 03:55
PROVIDERS: ADMITTING PHYSICIAN Internal Medicine; ATTENDING PHYSICIAN Hospitalist; EMERGENCY PHYSICIAN Emergency Medicine; FAMILY PHYSICIAN Internal Medicine; OTHER PHYSICIAN Internal Medicine
DX: I13.0 Hypertensive heart and chronic kidney disease with heart failure and stage 1 through stage 4 chronic kidney disease, or unspecified chronic kidney disease (principal); I50.23 Acute on chronic systolic (congestive) heart failure; J44.1 Chronic obstructive pulmonary disease with (acute) exacerbation; N18.4 Chronic kidney disease, stage 4 (severe); J44.0 Chronic obstructive pulmonary disease with (acute) lower respiratory infection; Z87.891 Personal history of nicotine dependence; I5A Non-ischemic myocardial injury (non-traumatic); Z11.52 Encounter for screening for COVID-19; Z66 Do not resuscitate; Z79.01 Long term (current) use of anticoagulants; Z51.5 Encounter for palliative care; R09.02 Hypoxemia; R06.89 Other abnormalities of breathing; E87.6 Hypokalemia; E78.00 Pure hypercholesterolemia, unspecified; K21.9 Gastro-esophageal reflux disease without esophagitis; K27.9 Peptic ulcer, site unspecified, unspecified as acute or chronic, without hemorrhage or perforation; D63.8 Anemia in other chronic diseases classified elsewhere; J20.9 Acute bronchitis, unspecified
CPT/HCPCS: 71045; 80048; 80053; 82805; 83735; 83880; 84439; 84443; 84484; 85025; 85027; 87070; 87502; 87811; 93005; 93289; 93306; 94640; 96374; 97162; 99285